=== PATIENT | female | born 1955 | race Caucasian/White ===

== ENCOUNTER 2018-03-28 14:30 | Outpatient (CLI) | payer MEDICARE, SELFPAY | END 2018-03-28 14:31 | PROVIDERS: PCP Nurse Practitioner Family; Visit Provider Nurse Practitioner Gerontology | DX: R31.9 Hematuria, unspecified (principal); N39.41 Urge incontinence | CPT/HCPCS: 99213 ==

== ENCOUNTER → 2018-05-16 08:45 | Outpatient (BNVA) | payer MEDICARE, SELFPAY | PROVIDERS: Visit Provider Psychiatry & Neurology Neurology | DX: G95.0 Syringomyelia and syringobulbia (principal); G93.0 Cerebral cysts; G70.00 Myasthenia gravis without (acute) exacerbation; G57.93 Unspecified mononeuropathy of bilateral lower limbs; R53.1 Weakness; I12.9 Hypertensive chronic kidney disease with stage 1 through stage 4 chronic kidney disease, or unspecified chronic kidney disease; N18.9 Chronic kidney disease, unspecified; J44.9 Chronic obstructive pulmonary disease, unspecified; Z87.891 Personal history of nicotine dependence | CPT/HCPCS: 99205; 99215 ==

== ENCOUNTER → 2018-05-25 11:13 | Outpatient (BNVA) | payer MEDICARE, SELFPAY | PROVIDERS: Visit Provider Nurse Practitioner Gerontology | DX: R31.21 Asymptomatic microscopic hematuria (principal); Z48.816 Encounter for surgical aftercare following surgery on the genitourinary system; I12.9 Hypertensive chronic kidney disease with stage 1 through stage 4 chronic kidney disease, or unspecified chronic kidney disease; N18.9 Chronic kidney disease, unspecified; J44.9 Chronic obstructive pulmonary disease, unspecified; Z87.891 Personal history of nicotine dependence | CPT/HCPCS: 99213 ==

== ENCOUNTER 2018-07-10 15:06 | Outpatient (REF) | payer MEDICARE, SELFPAY ==
--- NOTE | 2018-07-10 14:00 | PAPFT_PTH ---
PATIENT: Missy Kim LOC: [facility] U#:[id number] AGE/SX: 63/F ROOM: RE07/10/[address]: Bee Kowalski : 1955 BED: DIS: 07/10/2018 SPEC #: [id number] RECD: 07/10/18 18:22 STATUS: LAURY RESal #: [id number] LIBBY: 07/10/18 14:[address]: Bee Kowalski DEPT: [facility] Cytology RECD BY: Amanda Nix Tissues: 1 - CX/ENDOCX FOR PAP SMEARS Procedures: PAP THIN PREP/UVM Screening HPV DNA PROBE Comments: [id number]
[2018-07-10 18:42] LABS: Anion Gap 9.5 mmol/L (3-11); BUN 25 mg/dL (7-18); CO2 28.5 mmol/L (21.0-32.0); Calcium 9.7 mg/dL (8.5-10.1); Chloride 100 mmol/L (98-107); Estimated GFR 50.17 (mL/min/1.73m2); Glucose 91 mg/dL (70-100); Potassium 4.2 mmol/L (3.5-5.1); Sodium 138 mmol/L (136-145)
== END 2018-07-10 15:26 ==
LOC: NCHCN 15:06
PROVIDERS: PCP Nurse Practitioner Family; Visit Provider Nurse Practitioner Family
DX: Z12.4 Encounter for screening for malignant neoplasm of cervix (principal); Z11.51 Encounter for screening for human papillomavirus (HPV); N18.9 Chronic kidney disease, unspecified; E87.6 Hypokalemia
CPT/HCPCS: 80048; 88142; 87624

== ENCOUNTER → 2018-08-03 13:26 | Outpatient (BNVA) | payer MEDICARE, SELFPAY | PROVIDERS: PCP Nurse Practitioner Family; Visit Provider Psychiatry & Neurology Neurology | DX: G95.0 Syringomyelia and syringobulbia (principal); G70.00 Myasthenia gravis without (acute) exacerbation; G57.93 Unspecified mononeuropathy of bilateral lower limbs; R29.898 Other symptoms and signs involving the musculoskeletal system; I12.9 Hypertensive chronic kidney disease with stage 1 through stage 4 chronic kidney disease, or unspecified chronic kidney disease; N18.9 Chronic kidney disease, unspecified; J44.9 Chronic obstructive pulmonary disease, unspecified; Z87.891 Personal history of nicotine dependence | CPT/HCPCS: 95886; 95909; 99214 ==

== ENCOUNTER → 2018-09-27 12:48 | Outpatient (BNVA) | payer MEDICARE, SELFPAY | PROVIDERS: PCP Nurse Practitioner Family; Visit Provider Psychiatry & Neurology Neurology | DX: G95.0 Syringomyelia and syringobulbia (principal); G93.0 Cerebral cysts; G70.00 Myasthenia gravis without (acute) exacerbation; G57.93 Unspecified mononeuropathy of bilateral lower limbs; R53.1 Weakness; G89.29 Other chronic pain | CPT/HCPCS: 99214 ==

== ENCOUNTER 2018-11-13 00:15 | Outpatient (CLI) | payer MEDICARE, SELFPAY ==
--- NOTE | 2018-11-13 10:50 | DI.MAMMO_ITS ---
SYMPTOMS/DIAGNOSIS: SCREENING, [facility], Z00.00 MAMMOGRAM: Mammograms were interpreted according to the usual protocol including computer analysis with CAD system, tomosynthesis and C view imaging. The breast tissue is of moderate radiodensity. There is no evidence of a mass. There are no suspicious calcifications. No prior mammograms were extant at the time of this interpretation. SUMMARY: No evidence of malignancy, Category I, yearly screening mammography is recommended. Breast density Category B. SA ASSESSMENT OF FINDINGS: Negative. Category 1. Patient will receive a letter notifying them of these results. BI-RADS category B. There are scattered areas of fibroglandular density.
== END 2018-11-13 00:35 ==
PROVIDERS: PCP Nurse Practitioner Family; Visit Provider Nurse Practitioner Family
DX: Z12.31 Encounter for screening mammogram for malignant neoplasm of breast (principal)
CPT/HCPCS: 77063; 77067

== ENCOUNTER → 2019-01-30 12:30 | Outpatient (BNVA) | payer MEDICARE, SELFPAY | PROVIDERS: PCP Nurse Practitioner Family; Visit Provider Psychiatry & Neurology Neurology | DX: G95.0 Syringomyelia and syringobulbia (principal); G93.0 Cerebral cysts; G57.93 Unspecified mononeuropathy of bilateral lower limbs; R29.898 Other symptoms and signs involving the musculoskeletal system; G89.29 Other chronic pain; I10 Essential (primary) hypertension; J44.9 Chronic obstructive pulmonary disease, unspecified | CPT/HCPCS: 99214 ==

== ENCOUNTER 2019-02-06 15:34 | Outpatient (REF) | payer MEDICARE, SELFPAY ==
[2019-02-06 18:09] LABS: Anion Gap 10.9 mmol/L (3-11); BUN 32 mg/dL (7-18); CO2 27.1 mmol/L (21.0-32.0); Calcium 9.5 mg/dL (8.5-10.1); Chloride 103 mmol/L (98-107); Estimated GFR 50.17 (mL/min/1.73m2); Glucose 96 mg/dL (70-100); Potassium 4.1 mmol/L (3.5-5.1); Sodium 141 mmol/L (136-145)
== END 2019-02-06 15:54 ==
LOC: NCHCN 15:34
PROVIDERS: PCP Nurse Practitioner Family; Visit Provider Nurse Practitioner Family
DX: N18.9 Chronic kidney disease, unspecified (principal)
CPT/HCPCS: 80048

== ENCOUNTER → 2019-03-28 13:28 | Outpatient (BNVA) | payer MEDICARE, SELFPAY | PROVIDERS: Visit Provider Psychiatry & Neurology Neurology | DX: G95.0 Syringomyelia and syringobulbia (principal); G70.00 Myasthenia gravis without (acute) exacerbation; G93.0 Cerebral cysts; G57.93 Unspecified mononeuropathy of bilateral lower limbs; R25.2 Cramp and spasm; I12.9 Hypertensive chronic kidney disease with stage 1 through stage 4 chronic kidney disease, or unspecified chronic kidney disease; N18.9 Chronic kidney disease, unspecified; J44.9 Chronic obstructive pulmonary disease, unspecified | CPT/HCPCS: 99214 ==

== ENCOUNTER → 2019-05-29 10:23 | Outpatient (BNVA) | payer MEDICARE, SELFPAY | PROVIDERS: Referring Provider Nurse Practitioner Family; Visit Provider Nurse Practitioner Gerontology | DX: R31.21 Asymptomatic microscopic hematuria (principal); R31.9 Hematuria, unspecified | CPT/HCPCS: 81003; 99213 ==

== ENCOUNTER → 2019-05-30 13:26 | Outpatient (BNVA) | payer MEDICARE, SELFPAY | PROVIDERS: Visit Provider Psychiatry & Neurology Neurology | DX: G95.0 Syringomyelia and syringobulbia (principal); G70.00 Myasthenia gravis without (acute) exacerbation; G93.0 Cerebral cysts; G57.93 Unspecified mononeuropathy of bilateral lower limbs; R29.898 Other symptoms and signs involving the musculoskeletal system; R25.2 Cramp and spasm; J44.9 Chronic obstructive pulmonary disease, unspecified; I10 Essential (primary) hypertension | CPT/HCPCS: 99214 ==

== ENCOUNTER 2019-08-09 15:20 | Outpatient (REF) | payer MEDICARE, SELFPAY ==
[2019-08-09 19:03] LABS: Anion Gap 8.7 mmol/L (3-11); CO2 29.3 mmol/L (21.0-32.0); CREATININE 1.44 mg/dL (0.55-1.02); Calcium 9.5 mg/dL (8.5-10.1); Chloride 102 mmol/L (98-107); Estimated GFR 36.65 (mL/min/1.73m2); Glucose 102 mg/dL (74-106); Potassium 4.2 mmol/L (3.5-5.1); Sodium 140 mmol/L (136-145)
[2019-08-09 19:17] LABS: BUN 29 mg/dL (7-18)
== END 2019-08-09 15:40 ==
LOC: NCHCN 15:20
PROVIDERS: PCP Nurse Practitioner Family; Visit Provider Nurse Practitioner Family
DX: N18.9 Chronic kidney disease, unspecified (principal)
CPT/HCPCS: 80048

== ENCOUNTER → 2019-09-06 10:46 | Outpatient (BNVA) | payer MEDICARE, SELFPAY | PROVIDERS: PCP Nurse Practitioner Family; Visit Provider Psychiatry & Neurology Neurology | DX: G70.00 Myasthenia gravis without (acute) exacerbation (principal); G93.0 Cerebral cysts; G57.93 Unspecified mononeuropathy of bilateral lower limbs; R25.2 Cramp and spasm | CPT/HCPCS: 99214 ==

== ENCOUNTER 2019-10-15 11:51 | Outpatient (REF) | payer MEDICARE, SELFPAY ==
[2019-10-15 13:52] LABS: PROTEIN 14.8 mg/dL
[2019-10-15 13:54] LABS: COMMENT (LAB VIEW ONLY) 61.91 mg/dL
[2019-10-15 14:02] LABS: COMMENT (LAB VIEW ONLY) 62.14 mg/dL; Prot/Crea Ur Ratio 0.23
[2019-10-15 14:16] LABS: Anion Gap 6.4 mmol/L (3-11); BUN 32 mg/dL (7-18); CO2 30.6 mmol/L (21.0-32.0); Calcium 9.2 mg/dL (8.5-10.1); Chloride 103 mmol/L (98-107); Estimated GFR 37.86 (mL/min/1.73m2); Glucose 73 mg/dL (74-106); Potassium 4.2 mmol/L (3.5-5.1); Sodium 140 mmol/L (136-145)
== END 2019-10-15 12:11 ==
LOC: NCHCN 11:51
PROVIDERS: PCP Nurse Practitioner Family; Visit Provider Nurse Practitioner Family
DX: I10 Essential (primary) hypertension (principal); N18.9 Chronic kidney disease, unspecified
CPT/HCPCS: 80048; 82043; 82565; 82570; 84156

== ENCOUNTER → 2019-12-06 08:23 | Outpatient (BNVA) | payer MEDICARE, SELFPAY | PROVIDERS: PCP Nurse Practitioner Family; Referring Provider Nurse Practitioner Family; Visit Provider Psychiatry & Neurology Neurology | DX: G95.0 Syringomyelia and syringobulbia (principal); G93.0 Cerebral cysts; G70.00 Myasthenia gravis without (acute) exacerbation; G57.93 Unspecified mononeuropathy of bilateral lower limbs; R29.898 Other symptoms and signs involving the musculoskeletal system; R25.2 Cramp and spasm | CPT/HCPCS: 99213; 99442 ==

== ENCOUNTER 2020-02-06 17:05 | Outpatient (REF) | payer MEDICARE, SELFPAY ==
[2020-02-06 16:44] LABS: Bilirubin Negative (Negative); Blood Small (Negative); Clarity Clear (Clear); Glucose Negative (Negative); Ketones Negative (Negative); Leukocyte Esterase Negative (Negative); Nitrite Negative (Negative); Urobilinogen 0.2 EU/dL (Up TO 0.2); pH 6.5 (5-8)
[2020-02-06 17:14] LABS: RBC 0-2 HPF (0-2); WBC 0-2 HPF (0-5)
[2020-02-06 17:15] LABS: Bacteria Negative HPF (Negative); C & S Indicated? No; Casts Negative LPF (Negative); Crystals Negative HPF (Negative); Epithelial Cells Rare HPF (Negative); Mucus Negative (Negative)
== END 2020-02-06 17:25 ==
LOC: NCHCN 17:05
PROVIDERS: PCP Nurse Practitioner Family; Visit Provider Nurse Practitioner Family
DX: R30.0 Dysuria (principal)
CPT/HCPCS: 81003; 81015; 87086

== ENCOUNTER → 2020-03-03 14:24 | Outpatient (BNVA) | payer MEDICARE, SELFPAY | PROVIDERS: PCP Nurse Practitioner Family; Referring Provider Nurse Practitioner Family; Visit Provider Psychiatry & Neurology Neurology | DX: G95.0 Syringomyelia and syringobulbia (principal); G93.0 Cerebral cysts; G70.00 Myasthenia gravis without (acute) exacerbation; G57.93 Unspecified mononeuropathy of bilateral lower limbs; R29.898 Other symptoms and signs involving the musculoskeletal system; R25.2 Cramp and spasm; J44.9 Chronic obstructive pulmonary disease, unspecified; I10 Essential (primary) hypertension | CPT/HCPCS: 99214 ==

== ENCOUNTER 2020-03-19 03:44 | Outpatient (CLI) | payer MEDICARE, SELFPAY ==
[2020-03-19 14:00] LABS: HCT 39.4 % (36.0-46.0); HGB 12.6 g/dL (11.2-15.7); MCH 29.2 pg (27.0-33.0); MCV 91.4 fL (80-95); MPV 9.3 fL (8.0-11.0); Platelet Count 264 10^3/uL (130-400); RBC 4.31 10^6/uL (3.93-5.22); RDW 13.4 % (11.7-14.6); RDW-SD 45.5 fL
[2020-03-19 14:22] LABS: Hemoglobin A1C 5.7 % (3.8-5.6)
[2020-03-19 15:09] LABS: ALT 33 U/L (14-59); AST 17 U/L (15-37); Albumin 3.6 g/dL (3.4-5.0); Alkaline Phosphatase 96 U/L (46-116); Anion Gap 6.4 mmol/L (3-11); BUN 27 mg/dL (7-18); Bilirubin, Total 0.4 mg/dL (0.2-1.0); CO2 28.6 mmol/L (21.0-32.0); CREATININE 1.23 mg/dL (0.55-1.02); Calcium 9.4 mg/dL (8.5-10.1); Chloride 106 mmol/L (98-107); Estimated GFR 43.96 (mL/min/1.73m2); Glucose 143 mg/dL (74-106); Potassium 4.1 mmol/L (3.5-5.1); Sodium 141 mmol/L (136-145); TSH (W/Ref FT4) 1.41 uIU/mL (0.36-3.74); Total Protein 6.8 g/dL (6.4-8.2); Vitamin B12 518 pg/mL (193-986)
[2020-03-20 13:10] LABS: Albumin 59.3 % (55.8-66.1); Total Protein 6.6 g/dL (6.3-8.2)
== END 2020-03-19 04:04 ==
PROVIDERS: PCP Nurse Practitioner Family; Visit Provider Psychiatry & Neurology Neurology
DX: G62.9 Polyneuropathy, unspecified (principal); G70.00 Myasthenia gravis without (acute) exacerbation; R73.9 Hyperglycemia, unspecified
CPT/HCPCS: 36415; 80053; 85027; 82607; 83036; 84165; 84443

== ENCOUNTER → 2020-04-14 14:26 | Outpatient (BNVA) | payer MEDICARE, SELFPAY | PROVIDERS: PCP Nurse Practitioner Family; Referring Provider Nurse Practitioner Family; Visit Provider Psychiatry & Neurology Neurology | DX: G47.00 Insomnia, unspecified (principal); G70.00 Myasthenia gravis without (acute) exacerbation; G95.0 Syringomyelia and syringobulbia; G93.0 Cerebral cysts; G57.93 Unspecified mononeuropathy of bilateral lower limbs; R29.898 Other symptoms and signs involving the musculoskeletal system; R25.2 Cramp and spasm; J44.9 Chronic obstructive pulmonary disease, unspecified; I12.9 Hypertensive chronic kidney disease with stage 1 through stage 4 chronic kidney disease, or unspecified chronic kidney disease; N18.9 Chronic kidney disease, unspecified; Z87.891 Personal history of nicotine dependence | CPT/HCPCS: 99214 ==

== ENCOUNTER 2020-05-20 02:43 | Inpatient (IN) | payer MEDICARE, SELFPAY ==
[2020-05-20] VITALS (8 sets, daily range): BP systolic 108–136; BP diastolic 68–91; PULSE 64–89; RESP 15–20; TEMP 36.3–36.8; O2SAT 93–97
--- NOTE | 2020-05-20 02:43 | ED.GENADUL_ITS ---
Discharge Plan Disposition Patient Disposition: [facility] INPATIENT Condition: Stable Discharge Details Clinical Impression: Weakness Primary Care Provider: Prashanth Thayer ED Provider: Elvin Salinas Home Meds and New Rx's Prescriptions: No Action gabapentin 300 mg capsule 300 mg PO DIRECTED Qty: 450 RF: 3 pyridostigmine bromide [Mestinon Timespan] 180 mg tablet extended release 180 mg PO DAILY Qty: 90 RF: 3 lidocaine-prilocaine 2.5-2.5 % cream 1 applic TP Q4H PRN Qty: 120 RF: 5 ZTlido 1.8 % adhesive patch,medicated 2 patch TP DAILY Qty: 180 RF: 3 tizanidine 6 mg capsule 6 mg PO BID Qty: 180 RF: 3 potassium chloride [Klor-Con M20] 20 MEQ tablet,ER particles/crystals 20 meq PO DAILY RF: 0 lisinopril-hydrochlorothiazide [Zestoretic] 1 EACH tablet 1 tab-cap PO DAILY RF: 0 zolpidem [Ambien] 10 MG tablet 10 mg PO HS RF: 0 Medical Decision Making <Jose Roberto Brooks MD - Last Filed: 05/20/20 03:11> Patient with no real fall tonight and no injury. However, has had a decline and inability to care for self and ambulate despite having a walker. Unable to get herself up tonight. Feels unsafe at home at this point. No need for imaging or laboratory studies. Will check a urine to be sure UTI not exacerbating her weakness. We will then hold for care management consult in the morning. <Elvin Salinas MD - Last Filed: 05/20/20 10:41> Received signout from Dr. Brooks. Please see his note regarding details initial presentation, plan of care. Patient had a unremarkable urinalysis. I did refer her for screening laboratories which are reassuring. She has a number of reasons for chronic weakness which has worsened as per Dr. Brooks's note, but no acute injury. She was able to ambulate using a wheeled walker with physical therapy but still at high risk for falls and not a good candidate for independent living. She will be admitted to a swing bed pending placement for rehabilitation. The patient states to me that she wishes to be DNR/DNI, has consider this in the past but has yet to submit her form. HPI <Jose Roberto Brooks MD - Last Filed: 05/20/20 03:11> General Mode of arrival: EMS . Date/Time Provider Initiated Documentation: 05/20/20 02:44 . Limitations to Documentation: no limitations . Information obtained by: patient, RN notes reviewed and old records reviewed . HPI Narrative: Patient presents to ED by ambulance after sliding out of bed onto the floor. She has a known cervical/thoracic syringomyelia which is slowly causing paralysis in her lower extremities. Over the last week she has had increased difficulty getting around. She is supposed to be having surgery next month. She lives at [facility] which is assisted living but has no help or services. She does have a walker which up until a week ago she been doing fairly well with. She has no fever, cough, chest pain, shortness of breath, abdominal pain, difficulty urinating, vomiting or diarrhea. She is followed by Dr. So from neurology. She is followed by neurosurgery at [facility]. Once she slid out of bed tonight she was stuck and could not get up. She is becoming less able to ambulate. EMS was contacted and she presents here not knowing what else to do at this point. Related Data Home Medications Medication Instructions Recorded Confirmed lisinopril-hydrochlorothiazide 1 tab-cap PO DAILY tab-cap 03/02/18 04/14/20 [Zestoretic 20-25 Mg Tablet] potassium chloride [K-Dur] 20 meq PO DAILY tab-cap 03/02/18 04/14/20 zolpidem [Ambien] 10 mg PO HS 03/02/18 04/14/20 tizanidine 6 mg capsule 6 mg PO BID #180 cap 12/06/19 04/14/20 gabapentin 300 mg capsule 300 mg PO DIRECTED #450 cap 04/14/20 04/14/20 lidocaine 1.8 % topical patch 2 patch TP DAILY #180 each 04/14/20 04/14/20 lidocaine-prilocaine 2.5 %-2.5 % 1 applic TP Q4H PRN #120 gm 04/14/20 04/14/20 topical cream pyridostigmine bromide 180 mg 180 mg PO DAILY #90 tab-cap 04/14/20 04/14/20 tablet,extended release Previous Rx's Medication Instructions Recorded tizanidine 6 mg capsule 6 mg PO BID #180 cap 12/06/19 gabapentin 300 mg capsule 300 mg PO DIRECTED #450 cap 04/14/20 lidocaine 1.8 % topical patch 2 patch TP DAILY #180 each 04/14/20 lidocaine-prilocaine 2.5 %-2.5 % 1 applic TP Q4H PRN #120 gm 04/14/20 topical cream pyridostigmine bromide 180 mg 180 mg PO DAILY #90 tab-cap 04/14/20 tablet,extended release Allergies Allergy/AdvReac Type Severity Reaction Status Date / Time codeine Allergy Severe Verified 05/20/20 02:47 iodine Allergy Severe Verified 05/20/20 02:47 Penicillins Allergy Severe Anaphylaxsi Verified 05/20/20 02:47 s Sulfa (Sulfonamide Allergy Severe Swelling/Ed Verified 05/20/20 02:47 Antibiotics) kendal trazodone AdvReac Intermediate PER PT Verified 05/20/20 02:47 MAKES HER HEART RACE. Review of Systems <Jose Roberto Brooks MD - Last Filed: 05/20/20 03:11> Narrative: As documented in HPI otherwise negative as below. Const: no fever, chills, weakness Resp: no cough, SOB, pleuritic pain CV: no CP, diaphoresis, edema, syncope GI: no abdominal pain, nausea, vomiting, diarrhea PFSH <Jose Roberto Brooks MD - Last Filed: 05/20/20 03:11> Medical History (Updated 05/20/20 @ 10:28 by Elvin Salinas MD) Alcohol abuse history of Anxiety Chronic kidney disease COPD (chronic obstructive pulmonary disease) Depression GERD (gastroesophageal reflux disease) Hyperlipidemia Hypertension Insomnia previous misuse of Ambien Intracranial arachnoid cyst Migraine headache without aura Myasthenia gravis Syrinx of spinal cord Surgical History H/O craniotomy ; L cerebellar arachnoid cyst drain with shunt placement H/O thymectomy S/P appendectomy S/P cystourethroscopy with dilation of urethral stricture S/P tonsillectomy Family History Mother Diabetes Father Neuropathy Back problem Brother Myasthenia gravis Social History Smoking/Tobacco Use Status: Former Tobacco Use Alcohol Intake: former Drug use: Never Household members: none Number of Children: 0 Pets and animals: No Seatbelt use: always Additional Social history: She does not drive. Exam <Jose Roberto Brooks MD - Last Filed: 05/20/20 03:11> Narrative Exam Narrative: Vital signs: Afebrile with normal vitals and normal room air pulse ox. Const: Thin frail appearing female in NAD. HEENT: NC/AT. Neck: Supple. Trachea midline. No midline tenderness. Lungs: Normal respiratory effort. Cor: Good distal pulses. GI: Soft. NT/ND. No guarding or rebound. Neuro: A+O x 3. Normal speech, mentation. Cranial nerves II - XII grossly intact. Proximal bilateral lower extremity weakness. Fairly decent distal strength. Normal upper extremity strength. Gross sensation intact. Ext: No C/C/E. No deformity or tenderness. Good passive range of motion of hips. Skin: Warm and dry multiple bruises and abrasions in various stages of healing. Sign Out <Jose Roberto Brooks MD - Last Filed: 05/20/20 03:11> Sign Out Data: Sign Out Comment: pending care management Last updated by Jose Roberto Brooks MD at 05/20/20 07:45
--- NOTE | 2020-05-20 03:15 | NUR.NOTE ---
Nursing Note: Patient up to bedside commode with limited assistance. Unable to stand for long periods of time. Urine sample obtained and sent to lab. Assisted patient with getting legs up into bed. Lights turned off and door shut so patient able to sleep.
[2020-05-20 03:46] LABS: Bilirubin Negative (Negative); Blood Negative (Negative); Clarity Clear (Clear); Glucose Negative (Negative); Ketones Negative (Negative); Leukocyte Esterase Negative (Negative); Nitrite Negative (Negative); Urobilinogen 0.2 EU/dL (Up TO 0.2)
--- NOTE | 2020-05-20 05:03 | NUR.NOTE ---
Nursing Note: Patient sleeping on stretcher, even respirations noted. Allowed to sleep.
[2020-05-20 08:30] LABS: Abs Immature Grans 0.01 10^3/uL (0.0-0.06); Absolute Basophil Count 0.03 10^3/uL (0.0-0.2); Absolute Eosinophil Count 0.11 10^3/uL (0.0-0.7); Absolute Lymphocyte Count 1.03 10^3/uL (1.2-3.4); Absolute Neutrophil Count 3.46 10^3/uL (1.2-6.7); Basophils % 0.6; Eosinophils % 2.1; HCT 40.9 % (36.0-46.0); HGB 12.9 g/dL (11.2-15.7); Immature Grans % 0.2; Lymphocytes % 19.3; MCH 28.2 pg (27.0-33.0); MCHC 31.5 % (32.0-36.0); MCV 89.3 fL (80-95); MPV 9.8 fL (8.0-11.0); Monocytes % 13.1; Neutrophils % 64.7; Nucleated RBC 0 %; Platelet Count 240 10^3/uL (130-400); RBC 4.58 10^6/uL (3.93-5.22); RDW 12.6 % (11.7-14.6); RDW-SD 41.2 fL; WBC 5.34 10^3/uL (4.4-10.8)
[2020-05-20 08:57] LABS: ALT 18 U/L (14-59); AST 15 U/L (15-37); Albumin 3.3 g/dL (3.4-5.0); Alkaline Phosphatase 132 U/L (46-116); Anion Gap 7.7 mmol/L (3-11); BUN 21 mg/dL (7-18); Bilirubin, Total 0.5 mg/dL (0.2-1.0); CO2 28.3 mmol/L (21.0-32.0); CREATININE 0.97 mg/dL (0.55-1.02); Calcium 9.3 mg/dL (8.5-10.1); Chloride 104 mmol/L (98-107); Estimated GFR 57.64 (mL/min/1.73m2); Glucose 91 mg/dL (74-106); Potassium 3.4 mmol/L (3.5-5.1); Sodium 140 mmol/L (136-145); Total Protein 6.9 g/dL (6.4-8.2)
[2020-05-20] MEDS: Gabapentin 300 MG CAP PO ×2 (09:04→14:40)
--- NOTE | 2020-05-20 09:30 | PT.INIE ---
Date of service: 05/20/20 Time of Service: 09:30 PT Notes Visit Reasons: [facility] Emergency Department Initial Evaluation Date: 05/20/2020 Referring Doctor: Elvin Salinas MD PT Orders: PT CONSULT: Safety consult for DC Precautions: Fall. Standard. Activity as tolerated. Patient Profile/Admitting Diagnosis: Missy is a 65-year-old female who presents to the ED today 05/20/2020 due to a decline and inability to care for self and to safely ambulate. Her ED notes, she slid out of bed and onto the floor prior to today's admission. Missy has been followed by Dr. So here in [facility] and by neurosurgery at [facility] for known cervical/thoracic syringomyelia, intracranial arachnoid cyst with myelopathy, myasthenia gravis, neuropathic pain of bilateral legs, left arm weakness, and spasticity. PMHX: Medical History Alcohol abuse (Resolved) history of Anxiety (Chronic) Chronic kidney disease (Chronic) COPD (chronic obstructive pulmonary disease) (Chronic) Depression (Chronic) GERD (gastroesophageal reflux disease) (Chronic) Hyperlipidemia (Chronic) Hypertension (Chronic) Insomnia (Chronic) previous misuse of Ambien Intracranial arachnoid cyst (Chronic) Migraine headache without aura (Chronic) Myasthenia gravis (Chronic) Syrinx of spinal cord (Chronic) Surgical History H/O craniotomy (Acute) ; L cerebellar arachnoid cyst drain with shunt placement H/O thymectomy (Acute) S/P appendectomy (Acute) S/P cystourethroscopy with dilation of urethral stricture (Acute) S/P tonsillectomy (Acute) Social History/Home Situation: Lives alone on the 2nd floor of the [facility] with no community supports. Modified independent with 4[employer] however she can not count how many times she has already fallen this past year. She has a friend who she relies on for grocery shopping. She states that the 4WW moves so quick she no longer feels safe with it. She needs to walk about 250 feet from her aprtment to the elevator and walk about 50 feet from elevator to get to the basement where the laundry area is. This she states has become a challenge for her to do. She gets meals on wheels. Equipment Owned/DME: [employer] Subjective: She indicates that moving about has become increasingly challenging for her. She reports that she has a pending surgery and an appointment sometime in May for a CT scan to see the progression of her syringomyelia. She expresses that she cannot count how many fall she has had in the past 12 months. She says that her vision also has not been good. This, on top of her neuropathy in B leags as well as increasing weakness, have limited her ability to move about. She elaborates that she has not had any PT services as it has been a challenge getting appointments for it. Objective: General Observation: Supine in ED bed in room 7. Contusion seen to bilateral knees and B UEs. Mental Status: Alert and oriented x4 Pain: 6/10 in back and B legs and feet ROM: Right Upper Extremity: Shoulder Flexion WFL. Shoulder abduction WFL. Elbow flexion WFL. Wrist flexion WFL. Opening and closing of hand WFL. Left Upper Extremity: Shoulder Flexion allows about 100 degrees. Shoulder abduction allows about 90 degrees. Elbow flexion WFL. Wrist flexion WFL. Opening and closing of hand WFL. Right Lower Extremity: Hip flexion allows about 10 degrees beyond 90 while seated at edge of bed. Hip abduction WFL. Knee flexion WFL. Ankle dorsiflexion 10 degrees beyond neutral. Ankle plantarflexion WFL. Left Lower Extremity: Hip flexion allows about 10 degrees beyond 90 while seated at edge of bed. Hip abduction WFL. Knee flexion WFL. Ankle dorsiflexion 10 degrees beyond neutral. Ankle plantarflexion WFL. Strength: Right Upper Extremity: Shoulder flexors 4-/5. Shoulder abductors 4-/5. Elbow flexors 4-/5. Elbow extensors 4-/5. Detasseler strong. Left Upper Extremity: Shoulder flexors 3-/5. Shoulder abductors 3-/5. Elbow flexors 4/5. Elbow extensors 4/5. Detasseler strong. Right Lower Extremity: Hip flexors 3-/5. Hip abductors 3-/5. Knee flexors 4-/5. Knee extensors 4-/5. Ankle dorsiflexors 4-/5. Ankle plantarflexors 4-/5. Left Lower Extremity: Hip flexors 3-/5. Hip abductors 3-/5. Knee flexors 4-/5. Knee extensors 4-/5. Ankle dorsiflexors 4-/5. Ankle plantarflexors 4-/5. Sensation: States that she has some mixed sensation she feels in B soles and feet. The soles seem to have not a lot of feelings and the dorsum on B sides seems to hurting. Bed Mobility/Transfers: Rolling contact-guard assist Supine to sit contact-guard assist Sit to supine contact-guard assist Sit to stand contact-guard assist Stand to sit contact-guard assist Bed to chair contact-guard assist Chair to bed contact-guard assist Gait: 75 feet with minimal assist using front-wheeled walker. No full extension of B knees. Trunk anteroflexed. Gait unsteady. Decreased hip and knee extension. Decreased step height and length. Balance: Static Sitting: Normal Dynamic Sitting: Normal Static Standing: Fair Dynamic Standing: Fair Special Tests: Mobility Limitations Standardized Measure [facility] 6 clicks Basic Mobility Inpatient Short Form: Raw Score: 17 CMS Score: 50.57% deficit Informed Consent/Education: Patient instructed in purpose of PT consult and plan of care. Assessment: With possible progression of syringomyelia, patient may be at a significant risk for failure to thrive at home alone and for potential injury with continued falls. Missy demonstrates increasing decline requiring downgrading of use of assistive device from 4 wheeled walker to front wheeled walker for all mobility ADL performance, progressive weakness, increased fall risk due to admitting diagnoses. Missy is a 65-year-old female who presents to the ED today 05/20/2020 due to a decline and inability to care for self and to safely ambulate. Her ED notes, she slid out of bed and onto the floor prior to today's admission. Missy has been followed by Dr. So here in [facility] and by neurosurgery at [facility] for known cervical/thoracic syringomyelia, intracranial arachnoid cyst with myelopathy, myasthenia gravis, neuropathic pain of bilateral legs, left arm weakness, and spasticity. Patient presents with clinical signs and symptoms consistent with current/admitting diagnoses that have resulted to mobility limitations, gait instability, generalized weakness, and impairment of motor control as demonstrated by the following impairment level findings: 1. Decreased strength to B UE/LE major muscle groups 2. Impaired standing balance 3. Impaired activity tolerance 4. Limitation of joint range of motion in L UE 5. Vision impairment Impairments are contributing to the following functional limitations: 1. Increased dependence with transfers 2. Inability to safely ambulate without assistive device and physical assistance 3. Increase completion time for mobility ADL performance 4. Increased fall risk 5. Inability to negotiate steps alone safely Patient is assessed as a [id number] moderate complexity based on the following: History: 65-year-old female with impairment level findings, functional limitations, and past medical history as indicated above Examination: Demonstrable impairment in strength, balance, and mobility level with underlying impairments and functional limitations as documented above Presentation:Evolving Decision Makin moderate complexity Goals: N/A. PT consult only. Will need to re-evaluate on admission/transfer to the medical surgical unit once another referral is received. Plan of Care/Treatment Plan: Re-evaluation once patient is transferred to the medical surgical unit and another referral is received. DISCHARGE RECOMMENDATIONS: Patient will benefit from the use of a front wheel walker for safe mobility ADL performance. Requires skilled PT services for progressive strengthening and balance retraining. Will benfit from long-term facility placement. TREATMENT CODE/TIME: 05009 x 34 minutes beginning at 9:30 AM. Thank you for the opportunity to participate in the care of this patient. Ching Viveros PT, DPT, CLT [facility] [place], [place]
--- NOTE | 2020-05-20 10:27 | NUR.NOTE ---
Nursing Note: 10:00 am, Physical Therapy at beside to ambulate PT with walker.
--- NOTE | 2020-05-20 13:07 | HPE_ITS ---
Date of service: 05/20/20 Time of Service: 13:07 Assessment and Plan Assessment and plan (1) Weakness: Status: Acute Assessment and plan: symptoms worsened over the past week and include saddle anesthesia, bowel incontinence all concerning for cauda equina, discussed with neurosurgery at [facility] who recommends emergent transfer for evaluation. History of Present Illness History of Present Illness Chief Complaint: generalized weakness Narrative: Patient presents to ED by ambulance after sliding out of bed onto the floor. She has a known cervical/thoracic syringomyelia which is slowly causing paralysis in her lower extremities. Over the last week she has had increased d ifficulty getting around, falling more often. She reports increased perineum numbness, bowel incontinence. She is supposed to be having surgery next month at [facility]. She lives at [facility] which is assisted living but has no help or services. She does have a walker which up until a week ago she been doing fairly well with. She has no fever, cough, chest pain, shortness of breath, abdominal pain, difficulty urinating, vomiting or diarrhea. She is followed by Dr. So from neurology. She is followed by neurosurgery at [facility]. Once she slid out of bed tonight she was stuck on on the floor and could not get up. She is becoming less able to ambulate. EMS was contacted and she was brought to the ED accordingly. ED consulted case management and plan was made for swing level admission here. Review of Systems Constitutional Constitutional: Denies fever(s), Denies headache(s) and Reports weakness (generalized bilateral lower) Eyes Eyes: Denies blurry vision and Denies change in vision ENT Ears, Nose, Mouth, and Throat: Denies vertigo, Denies dizziness, Denies headache(s) and Reports disequilibrium Cardiovascular Cardiovascular: Denies chest pain, Denies edema and Denies dyspnea Respiratory Respiratory: Denies cough and Denies dyspnea Gastrointestinal Gastrointestinal: Denies abdominal pain, Reports change in bowel habits, Denies nausea, Denies vomiting and Reports other (incontinent of stool ) Musculoskeletal Musculoskeletal: Denies arthralgias and Reports other (multiple falls) Integumentary/Breasts Skin/Breast: Reports other (scattered bruises of various stages of healing) Neurologic Neurologic: Denies vertigo, Denies dizziness, Denies headache(s), Reports disequilibrium and Reports weakness (generalized bilateral lower) Hematologic/Lymphatic Hematologic/Lymphatic: Reports easy bruising [facility] Medical History (Updated 05/20/20 @ 10:28 by Elvin Salinas MD) Alcohol abuse history of Anxiety Chronic kidney disease COPD (chronic obstructive pulmonary disease) Depression GERD (gastroesophageal reflux disease) Hyperlipidemia Hypertension Insomnia previous misuse of Ambien Intracranial arachnoid cyst Migraine headache without aura Myasthenia gravis Syrinx of spinal cord Surgical History H/O craniotomy ; L cerebellar arachnoid cyst drain with shunt placement H/O thymectomy 1980s S/P appendectomy S/P cystourethroscopy with dilation of urethral stricture S/P tonsillectomy Family History Mother Diabetes Father Neuropathy Back problem Brother Myasthenia gravis Social History Smoking/Tobacco Use Status: Former Tobacco Use Alcohol Intake: former Drug use: Never Household members: none Number of Children: 0 Pets and animals: No Seatbelt use: always Additional Social history: She does not drive. Meds Home Medications and Allergies Home Medications Medication Instructions Recorded Confirmed Type lisinopril-hydrochlorothiazide 1 tab-cap PO DAILY tab-cap 03/02/18 05/20/20 History [Zestoretic 20-25 Mg Tablet] potassium chloride [K-Dur] 20 meq PO DAILY tab-cap 03/02/18 05/20/20 History zolpidem [Ambien] 10 mg PO HS 03/02/18 05/20/20 History tizanidine 6 mg capsule 6 mg PO BID #180 cap 12/06/19 05/20/20 Rx gabapentin 300 mg capsule 300 mg PO DIRECTED #450 cap 04/14/20 05/20/20 Rx lidocaine 1.8 % topical patch 2 patch TP DAILY #180 each 04/14/20 05/20/20 Rx lidocaine-prilocaine 2.5 %-2.5 % 1 applic TP Q4H PRN #120 gm 04/14/20 05/20/20 Rx topical cream pyridostigmine bromide 180 mg 180 mg PO DAILY #90 tab-cap 04/14/20 05/20/20 Rx tablet,extended release Allergies Allergy/AdvReac Type Severity Reaction Status Date / Time codeine Allergy Severe Verified 05/20/20 02:47 iodine Allergy Severe Verified 05/20/20 02:47 Penicillins Allergy Severe Anaphylaxsi Verified 05/20/20 02:47 s Sulfa (Sulfonamide Allergy Severe Swelling/Ed Verified 05/20/20 02:47 Antibiotics) kendal trazodone AdvReac Intermediate PER PT Verified 05/20/20 02:47 MAKES HER HEART RACE. Exam Const General: cooperative, healthy appearing, comfortable, no acute distress and frail appearing Nutritional Appearance: thin Orientation: alert, awake and oriented x3 HENMT Head: normal to inspection, normocephalic and atraumatic Mouth: oral mucosae normal Resp Effort & Inspection: normal respiratory effort Auscultation: clear to auscultation bilaterally Cardio Rate: regular rate Rhythm: regular rhythm GI Inspection: normal to inspection Skin General skin exam: other (scattered bruises of multiple stages of healing multiple areas) Neuro General: patient alert, patient awake, patient oriented x3, tone abnormal, focal motor deficits present and unable to assess gait Cranial Nerves: other (rectal exam shows poor tone, stool negative for OB, hard stool in vault) Cognition: normal cognition Speech: speech normal Motor: strength abnormal (3/5 bilateral lower, sensation diminished, poor rectal tone) Sensory Exam: graphesthesia abnormal bilaterally and perineum Extrem General: no pedal edema, abnormal gait and other (drop foot left > right) Results Labs Result diagrams: 05/20/20 08:25 05/20/20 08:25 Labs: Laboratory Results - last 24 hr 05/20/20 05/20/20 05/20/20 03:15 08:25 08:25 WBC 5.34 RBC 4.58 Hgb 12.9 Hct 40.9 MCV 89.3 MCH 28.2 MCHC 31.5 L RDW 12.6 Plt Count 240 MPV 9.8 Immature Gran % 0.2 Neutrophils % 64.7 Lymphocytes % 19.3 Monocytes % 13.1 Eosinophils % 2.1 Basophils % 0.6 Nucleated RBC % 0 Absolute Neutrophils 3.46 Absolute Lymphocytes 1.03 L Absolute Monocytes 0.70 Absolute Eosinophils 0.11 Absolute Basophils 0.03 Sodium 140 Potassium 3.4 L Chloride 104 Carbon Dioxide 28.3 Anion Gap 7.7 BUN 21 H Creatinine 0.97 Estimated GFR/1.73 m2 57.64 Glucose 91 Calcium 9.3 Total Bilirubin 0.5 AST 15 ALT 18 Alkaline Phosphatase 132 H Total Protein 6.9 Albumin 3.3 L Urine Color Yellow Urine Clarity Clear Urine pH 7.0 Ur Specific [place] 1.020 Urine Protein Negative Urine Ketones Negative Urine Blood Negative Urine Nitrite Negative Urine Bilirubin Negative Urine Urobilinogen 0.2 Ur Leukocyte Esterase Negative Urine Glucose Negative Last Vital Signs Temp 36.5 C 05/20/20 11:45 Pulse 75 05/20/20 11:45 Resp 18 05/20/20 11:45 BP 134/82 05/20/20 11:45 Pulse Ox 97 05/20/20 11:45 COVID-19 Screening Have you,or household,traveled outside [place] in last 14 days?: No Had IN PERSON contact w/suspected or confirmed C-19 person: No
[2020-05-20] MEDS: Lidocaine 5% Patch 2 PATCH TP (14:39)
--- NOTE | 2020-05-20 14:51 | W.PM.DS.N ---
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 So. She presented today to the emergency department with increasing falls and inability to care for herself at home. The emergency department contacted case management and plans were made for [facility] rehab while awaiting her procedure at [facility]. On interview she reports that she has been having increased weakness over the past 1-2 weeks bilaterally to the lower extremities causing multiple falls. She also reports increased numbness in her perineum and inner thighs. She reports that she has lost ability to control her bowel. On physical exam she is found to have 3 out of 5 bilateral lower extremity weakness with left foot drop and poor rectal tone. Her case was discussed with Dr. So and Dr. Kirk from [facility] who recommends emergent transfer. She will be transferred by ground EMS to their emergency department for further evaluation and management. Home Meds and New Rx's Prescriptions: Continued gabapentin 300 mg capsule 300 mg PO DIRECTED Qty: 450 RF: 3 pyridostigmine bromide [Mestinon Timespan] 180 mg tablet extended release 180 mg PO DAILY Qty: 90 RF: 3 lidocaine-prilocaine 2.5-2.5 % cream 1 applic TP Q4H PRN Qty: 120 RF: 5 ZTlido 1.8 % adhesive patch,medicated 2 patch TP DAILY Qty: 180 RF: 3 potassium chloride [Klor-Con M20] 20 MEQ tablet,ER particles/crystals 20 meq PO DAILY RF: 0 lisinopril-hydrochlorothiazide [Zestoretic] 1 EACH tablet 1 tab-cap PO DAILY RF: 0 zolpidem [Ambien] 10 MG tablet 10 mg PO HS PRNRF: 0 Discontinued tizanidine 6 mg capsule 6 mg PO BID Qty: 180 RF: 3 Discharge Instructions Instructions: Weakness (DC) Additional Instructions: ground transport to [facility] for neurosurgery evaluation Activity:: bedrest Equipment/Supplies:: No Equipment Needed Diet:: npo Discharge Orders Discharge Orders: Discharge Order (Routine); Ordered 05/20/20 Ordered By: Pavithra Bliss DS: Summary Status at Discharge Functional status at discharge: bed bound Overall status at discharge: patient is not back to baseline Mental Status: mental status grossly normal Speech and Movement: speech and movement normal Mood: congruent mood Affect: normal affect Exam Const General: cooperative, comfortable, no acute distress and frail appearing Nutritional Appearance: thin Orientation: alert, awake and oriented x3 HENMT Head: normal to inspection, normocephalic and atraumatic Mouth: oral mucosae normal Resp Effort & Inspection: normal respiratory effort Auscultation: clear to auscultation bilaterally Cardio Rate: regular rate Rhythm: regular rhythm GI Inspection: normal to inspection Skin General skin exam: other (scattered bruises of multiple stages of healing multiple areas) Neuro General: patient alert, patient awake, patient oriented x3, tone abnormal, focal motor deficits present and unable to assess gait Cranial Nerves: other (rectal exam shows poor tone, stool negative for OB, hard stool in vault) Cognition: normal cognition Speech: speech normal Motor: strength abnormal (3/5 bilateral lower, sensation diminished, poor rectal tone) Sensory Exam: graphesthesia abnormal bilaterally and perineum Extrem General: no pedal edema, abnormal gait and other (drop foot left > right) Psych Mental Status: mental status grossly normal Speech and Movement: speech and movement normal Mood: congruent mood Affect: normal affect DS: Data Vitals/I&O Vitals and I&O: Vital Signs Temperature 36.5 C 05/20/20 11:45 Temperature Source Tympanic 05/20/20 11:45 Pulse 75 05/20/20 11:45 Pulse Rhythm Regular 05/20/20 11:45 Respiratory Rate 18 05/20/20 11:45 Respiratory Effort Non-Labored 05/20/20 11:45 Respiratory Depth Normal 05/20/20 11:45 Respiratory Pattern Normal 05/20/20 11:45 Blood Pressure 134/82 05/20/20 11:45 Blood Pressure Position Supine 05/20/20 02:40 Pulse Oximetry 97 05/20/20 11:45 Oxygen Delivery Method Room Air 05/20/20 11:45 Oxygen Flow Rate 0 05/20/20 11:45 Pain Level 5 05/20/20 11:45 Intake & Output 05/19/20 05/20/20 05/20/20 23:59 11:59 23:59 Intake Total 240 / 240 Output Total 900 / 1500 600 / 1500 Balance -900 / -1260 -360 / -1260 Weight 58.967 kg Intake: Oral 240 / 240 Output: Urine 900 / 1500 600 / 1500 Other: Urine Color Yellow Urine Appearance Clear Clear Urine Odor None Voiding Methods Toilet Data Completed and Pending Labs on day of discharge: Labs from last 24 hours 05/20/20 05/20/20 05/20/20 13:46 11:19 08:25 WBC 5.34 RBC 4.58 Hgb 12.9 Hct 40.9 MCV 89.3 MCH 28.2 MCHC 31.5 L RDW 12.6 Plt Count 240 MPV 9.8 Immature Gran % 0.2 Neutrophils % 64.7 Lymphocytes % 19.3 Monocytes % 13.1 Eosinophils % 2.1 Basophils % 0.6 Nucleated RBC % 0 Absolute Neutrophils 3.46 Absolute Lymphocytes 1.03 L Absolute Monocytes 0.70 Absolute Eosinophils 0.11 Absolute Basophils 0.03 Sodium Potassium Chloride Carbon Dioxide Anion Gap BUN Creatinine Estimated GFR/1.73 m2 Glucose Calcium Magnesium Pending Total Bilirubin AST ALT Alkaline Phosphatase Total Protein Albumin Urine Color Urine Clarity Urine pH Ur Specific [place] Urine Protein Urine Ketones Urine Blood Urine Nitrite Urine Bilirubin Urine Urobilinogen Ur Leukocyte Esterase Urine Glucose COVID-19 PCR Pending Nasopharyn COVID-19 PCR Pending Ref Test Perform Site Pending 05/20/20 05/20/20 08:25 03:15 WBC RBC Hgb Hct MCV MCH MCHC RDW Plt Count MPV Immature Gran % Neutrophils % Lymphocytes % Monocytes % Eosinophils % Basophils % Nucleated RBC % Absolute Neutrophils Absolute Lymphocytes Absolute Monocytes Absolute Eosinophils Absolute Basophils Sodium 140 Potassium 3.4 L Chloride 104 Carbon Dioxide 28.3 Anion Gap 7.7 BUN 21 H Creatinine 0.97 Estimated GFR/1.73 m2 57.64 Glucose 91 Calcium 9.3 Magnesium Total Bilirubin 0.5 AST 15 ALT 18 Alkaline Phosphatase 132 H Total Protein 6.9 Albumin 3.3 L Urine Color Yellow Urine Clarity Clear Urine pH 7.0 Ur Specific [place] 1.020 Urine Protein Negative Urine Ketones Negative Urine Blood Negative Urine Nitrite Negative Urine Bilirubin Negative Urine Urobilinogen 0.2 Ur Leukocyte Esterase Negative Urine Glucose Negative COVID-19 PCR Nasopharyn COVID-19 PCR Ref Test Perform Site [facility] Medical History (Updated 05/20/20 @ 10:28 by Elvin Salinas MD) Alcohol abuse history of Anxiety Chronic kidney disease COPD (chronic obstructive pulmonary disease) Depression GERD (gastroesophageal reflux disease) Hyperlipidemia Hypertension Insomnia previous misuse of Ambien Intracranial arachnoid cyst Migraine headache without aura Myasthenia gravis Syrinx of spinal cord Surgical History H/O craniotomy ; L cerebellar arachnoid cyst drain with shunt placement H/O thymectomy 1980s S/P appendectomy S/P cystourethroscopy with dilation of urethral stricture S/P tonsillectomy Family History Mother Diabetes Father Neuropathy Back problem Brother Myasthenia gravis Social History Smoking/Tobacco Use Status: Former Tobacco Use Alcohol Intake: former Drug use: Never Household members: none Number of Children: 0 Pets and animals: No Seatbelt use: always Additional Social history: She does not drive.
[2020-05-20 23:05] LABS: COVID-19 RT-PCR UVMMC Result Negative (Negative)
== END 2020-05-20 16:00 | DRG 57 ==
LOC: ER 10:41 → MS 11:32
PROVIDERS: Emergency Medicine; Nurse Practitioner Acute Care; Admitting Provider Internal Medicine; Emergency Provider Emergency Medicine; PCP Nurse Practitioner Family; Visit Provider Internal Medicine
DX: G95.0 Syringomyelia and syringobulbia (principal); R53.1 Weakness; W06.XXXA Fall from bed, initial encounter; F41.9 Anxiety disorder, unspecified; N18.9 Chronic kidney disease, unspecified; J44.9 Chronic obstructive pulmonary disease, unspecified; F32.9 Major depressive disorder, single episode, unspecified; K21.9 Gastro-esophageal reflux disease without esophagitis; E78.5 Hyperlipidemia, unspecified; I10 Essential (primary) hypertension; G47.00 Insomnia, unspecified; G43.009 Migraine without aura, not intractable, without status migrainosus; G70.00 Myasthenia gravis without (acute) exacerbation; T14.8XXA Other injury of unspecified body region, initial encounter; R15.9 Full incontinence of feces; R26.2 Difficulty in walking, not elsewhere classified
CPT/HCPCS: 36415; 80053; 97162; 99236; 99285; 99306; 99316; U0003; 81003; 83735; 85025; 99284

== ENCOUNTER 2020-06-10 13:04 | Outpatient (REF) | payer MEDICARE, SELFPAY ==
[2020-06-11 17:50] LABS: COVID-19 RT-PCR Result Not Detected
== END 2020-06-10 13:24 ==
LOC: LBN 13:04
PROVIDERS: PCP Nurse Practitioner Family; Visit Provider Nurse Practitioner Adult Health
DX: Z11.59 Encounter for screening for other viral diseases (principal)
CPT/HCPCS: U0003

== ENCOUNTER → 2020-07-03 08:56 | Outpatient (BNVA) | payer MEDICARE, SELFPAY | PROVIDERS: PCP Nurse Practitioner Family; Referring Provider Nurse Practitioner Family; Visit Provider Psychiatry & Neurology Neurology | DX: G95.0 Syringomyelia and syringobulbia (principal); G93.0 Cerebral cysts; G70.00 Myasthenia gravis without (acute) exacerbation; G57.93 Unspecified mononeuropathy of bilateral lower limbs; R29.898 Other symptoms and signs involving the musculoskeletal system; R25.2 Cramp and spasm; G47.00 Insomnia, unspecified | CPT/HCPCS: 99213; 99442 ==

== ENCOUNTER 2020-10-03 11:19 | Outpatient (REF) | payer MEDICARE, SELFPAY ==
[2020-10-03 11:47] LABS: Bilirubin Negative (Negative); Blood Negative (Negative); Glucose Negative (Negative); Ketones Negative (Negative); Leukocyte Esterase Negative (Negative); Nitrite Negative (Negative); Specific Gravity 1.025 (1.005-1.025); Urobilinogen 0.2 EU/dL (Up TO 0.2); pH 6.5 (5-8)
[2020-10-03 12:33] LABS: Clarity Sl Cloudy (Clear)
[2020-10-03 12:36] LABS: Bacteria Many HPF (Negative); C & S Indicated? Yes; Casts Negative LPF (Negative); Crystals Negative HPF (Negative); Epithelial Cells Rare HPF (Negative); Mucus Negative (Negative); RBC Negative HPF (0-2); WBC Negative HPF (0-5)
== END 2020-10-03 11:20 | disposition home or self-care (01) ==
LOC: LBN 11:19
PROVIDERS: PCP Nurse Practitioner Family; Visit Provider Nurse Practitioner Family
DX: R30.0 Dysuria (principal); R35.0 Frequency of micturition
CPT/HCPCS: 81003; 81015; 87086; 87186

== ENCOUNTER → 2020-11-12 07:30 | Outpatient (BNVA) | payer MEDICARE, SELFPAY | PROVIDERS: PCP Nurse Practitioner Family; Referring Provider Nurse Practitioner Family; Visit Provider Psychiatry & Neurology Neurology | DX: G95.0 Syringomyelia and syringobulbia (principal); G47.00 Insomnia, unspecified; G57.93 Unspecified mononeuropathy of bilateral lower limbs; G70.00 Myasthenia gravis without (acute) exacerbation; G93.0 Cerebral cysts; R25.2 Cramp and spasm; R29.898 Other symptoms and signs involving the musculoskeletal system | CPT/HCPCS: 99443 ==

== ENCOUNTER 2021-03-24 16:26 | Emergency (ER) | payer MEDICARE, SELFPAY ==
[2021-03-24] VITALS (22 sets, daily range): BP systolic 152–158; BP diastolic 96–122; PULSE 96–110; RESP 12–23; TEMP 36.6; O2SAT 95–97
--- NOTE | 2021-03-24 16:45 | DI.CT_ITS ---
Exam(s) CT ABDOMEN PELVIS W EXAM: CT ABDOMEN PELVIS W CLINICAL HISTORY: diffuse discomfort, no BM x 1 week. TECHNIQUE: Imaging Protocol: Axial computed tomography images with coronal and sagittal reformatted images were created and reviewed CONTRAST MATERIAL: Intravenous: Omnipaque 350 Contrast volume:100 ml Oral: no COMPARISON: CT ABD/PELVIS WO W CONTRAST from 03/07/2018 FINDINGS: ABDOMEN: Lung Bases: Normal where visualized. The left jaye diaphragm is again noted to be elevated Liver: Normal density. No measurable mass. Gallbladder and biliary tract: No radiodense calculus or dilation. Pancreas: Normal density, no abnormal calcifications or inflammatory process. Spleen: Normal. Kidneys: Normal size, contour and axis. Stable appearance of prominent bilateral extrarenal pelvis. No radiodense stones or obstructive uropathy. Small bilateral cysts. No masses seen. Adrenal glands: No masses seen. Abdominal Aorta: Abdominal portion non-dilated. PELVIS: Bladder: No gross wall thickening. No calculi.No focal mass. Bowel: There is a large quantity of stool seen throughout the colon. Prominent sigmoid diverticulosi s. No obstruction or bowel wall thickening. No evidence of appendicitis. A duodenal diverticulum is noted. Peritoneal cavity: No ascites, collection or mesenteric inflammatory response. Tubing is again noted in the peritoneal cavity. Bones: Degenerative changes and scoliosis.. Reproductive organs: Within normal limits. Lymph nodes: Stable left para-aortic lymph node at the level of the renal hilum. Impression: Large quantity of stool. No acute abnormality. RADIATION DOSE DELIVERED: 1,021.09mGy.cm Total DLP DATA REPOSITORY: All CT scans at this facility are submitted to the National Radiology Data Registry (NRDR) Dose Index Registry (DIR) with the [employer] (A[employer]). RADIATION OPTIMIZATION: All CT scans at this facility use at least one of these dose optimization te chniques: automated exposure control; mA and/or kV adjustment per patient size (includes targeted exa ms where dose is matched to clinical indication); or iterative reconstruction.
--- NOTE | 2021-03-24 16:52 | W.ED.GENAD ---
Discharge Plan Disposition Patient Disposition: HOME Condition: Stable Discharge Details Clinical Impression: Depression, Constipation, chronic Primary Care Provider: Prashanth Thayer ED Provider: Itzel Bernardo Home Meds and New Rx's Prescriptions: Continued gabapentin 300 mg capsule 300 mg PO DIRECTED Qty: 450 RF: 3 pyridostigmine bromide [Mestinon Timespan] 180 mg tablet extended release 180 mg PO DAILY Qty: 90 RF: 3 lidocaine-prilocaine 2.5-2.5 % cream 1 applic TP Q4H PRN Qty: 120 RF: 5 lidocaine [Lidoderm] 5 % adhesive patch,medicated 1 patch topical DAILY RF: 0 cyclobenzaprine 10 mg tablet See Rx Instructions PO HS PRN (Reason: muscle spasm) Qty: 270 RF: 3 acetaminophen 500 mg tablet 1,000 mg PO TID PRN PRN (Reason: pain) Qty: 90 RF: 0 oxycodone 5 mg tablet 10 mg PO BID PRN MDD 3 tabs PRN (Reason: pain) Qty: 120 RF: 0 potassium chloride [Klor-Con M20] 20 MEQ tablet,ER particles/crystals 20 meq PO DAILY RF: 0 lisinopril-hydrochlorothiazide [Zestoretic] 1 EACH tablet 1 tab-cap PO DAILY RF: 0 zolpidem [Ambien] 5 mg tablet 5 mg PO QHS PRN (Reason: insomnia) RF: 0 sennosides 8.6 mg tablet 8.6 mg PO BID RF: 0 aspirin 81 mg tablet 81 mg PO DAILY RF: 0 omeprazole 20 mg capsule,delayed release(DR/EC) 20 mg PO DAILY Qty: 30 RF: 2 ondansetron 4 mg tablet,disintegrating 4 mg PO Q8H PRN (Reason: nausea and vomiting) Qty: 30 RF: 0 Discharge Instructions Instructions: Constipation (ED), Depression (ED) Additional Instructions: Your imaging and labs are reassuring today. CT does show moderate constipation but no obstruction. Please encourage hydration. You may use MiraLAX to help promote bowel movement. In regard to your weakness, I would like you to work once again with physical therapy. A referral for for therapy as well as home health have been sent. I have asked her care management team to reach out to you to discuss options at home to help better manage your chronic weakness and limited mobility. As discussed by mental health, please continue to seek care with your therapist. Attached is a list of local behavioral health services as well as support lines. Please contact these to discuss further counseling and psychiatric care for your depression. If you develop thoughts of self-harm, suicidal ideations, suicidal plan or other new/worsening symptoms to seek care urgently once again. Otherwise, I would like to follow-up with primary care in 1 week for reevaluation. If you develop any new or worsening symptoms please seek care urgently once again. Referrals: Prashanth Thayer NP [Primary Care Provider] - Discharge Data Discharge Date/Time-TO BE ENTERED AT DEPARTURE: 03/24/21 21:30 Medical Decision Making Patient is an 65-year-old female presenting today with chief complaint of feeling off. She primarily associates this with GI discomfort. She reports that she has had minimal stool output in the past week. She reports that she has been performing manual disimpaction with minimal relief. She reports that she has had a time of nausea but again today. No fevers or chills. No vomiting. Denies any significant abdominal discomfort. Patient reports that she had surgical intervention on her lumbar spine last May. She was in local rehabilitation center x3 months. She reports that while there she did begin ambulating again. However, since being home she has had worsening weakness to her bilateral lower extremities the point that she has been wheelchair-bound for the past several months. States she does have electronic as well as a manual wheelchair. Patient has not followed up with her spine surgeon since the time of discharge. She is denying any back pain currently. No change in her ambulatory status, no change in her weakness recently. EMS is concerned that patient has had multiple falls and is averaging approximately 12 visits per month to her place of residence secondary to falls requiring assistance to get back up. On exam, patient appears nontoxic. She is reporting some fairly diffuse abdominal discomfort but no peritoneal findings on exam. Abdomen is not symptomatic. Rectal exam is normal, heme-negative stool. She does have some muscular wasting of the bilateral lower extremities. Will obtain imaging of her abdomen, baseline labs. Shortly after arrival, patient reported that she does have suicidal ideations. He seemed quite passive. She denies any plan. She does not actually want to commit suicide but rather about this fairly frequently. However, she reports that she has suicidal ideation support several years. Is followed by therapist. We will have mental health evaluate the patient. Labs reviewed. No leukocytosis. Stable H&H. Specimen slightly low at 3.3 will replenish this , Here. Alk phos elevated at 125, this is baseline for the patient. FINDINGS: Tubes, catheters and devices: A catheter fragment within the abdomen may represent a portion of an abandoned [employer] shunt catheter. Recommend clinical correlation. Lungs: Mild atelectatic changes of the right lung base. Heart: Mild cardiac enlargement. No pericardial effusion. Diaphragm: Moderate to severe chronic elevation of the left hemidiaphragm. This is evident on prior CT from 2018. This is of uncertain significance. The entire region was not imaged with exclusion of the dome of the diaphragm and some of the intra-abdominal contents extending up to the hemidiaphragm. Liver: Normal. No mass. Gallbladder and bile ducts: Normal. No calcified stones. No ductal dilation. Pancreas: Normal. No ductal dilation. Spleen: Spleen is normal in size, contour, and enhancement. The most superior tip of the spleen is excluded. Adrenal glands: Normal. No mass. Kidneys and ureters: Superior pole right renal benign-appearing cyst measuring 13 mm. Posterior right renal 15 mm benign-appearing cyst. Subcentimeter posterior left renal cortical cyst. Bilateral renal pelvis distension without sangita hydronephrosis. This may be secondary to variant extrarenal pelvis anatomy. Stomach and bowel: Gastric morphology is unremarkable. No edema. No gastric outlet obstruction. A portion of the gastric fundus is excluded within the elevated left hemidiaphragm region. Small bowel loops are normal in course and caliber. There is no mucosal edema or bowel wall thickening. No obstructive features. There is suggestion of a prominent diverticulum arising from the 3rd portion of the duodenum measuring approximately 3.1 cm. Axial series 4, image 31. Coronal series 6, image 32. This is present on previous study from 2018 as well. The colon contains formed fecal material. There is no bowel wall thickening. No inflammatory features. No obstruction. There is scattered colonic diverticulosis without acute diverticulitis. No mechanical bowel obstruction. There is moderate feces in the proximal transverse colon and right colon. Appendix: No evidence of appendicitis. Intraperitoneal space: No free fluid in the abdomen or pelvis. Vasculature: Unremarkable. No abdominal aortic aneurysm. Lymph nodes: Left para-aortic retroperitoneal lymph node at the level of the renal hilum is noted. This measures 2.1 x 0.9 cm. This is unchanged since 2018. Urinary bladder: The urinary bladder is unremarkable. Reproductive: Uterus and adnexa are unremarkable. Bones/joints: Degenerative lumbar spine disease. Soft tissues: Abdominal wall soft tissues are unremarkable. IMPRESSION: 1. No acute findings of the abdomen or pelvis. 2. Moderate fecal retention in the mid transverse colon proximally to the cecum. No distal obstruction. No edema or mass. 3. No free fluid in the abdomen or pelvis. 4. Chronic nonspecific severe elevation of the left hemidiaphragm. 5. Benign bilateral renal cysts. No further imaging follow-up recommended based on MIPS criteria. 6. Catheter fragment in the abdomen may represent an abandoned [employer] shunt catheter. Patient was evaluated by mental health. Lucio does not feel that patient is actively suicidal. I do agree with this assessment. Rather, patient will be given list of other local agencies to further help with her depression. She reports that she is been on antidepressants multiple times historically did not tolerate these well or get much relief from them. I did advise that she may further benefit from a psychiatrist as she has not been seen by psychiatrist in the past. In regard to the patient's abdominal discomfort, I advised that she does have moderate constipation. We discussed treatment options. She would prefer oral route. We did discuss admission, particularly given the patient's weakness since her surgery. She has had multiple falls and is required EMS frequently. However, patient feels that she is able to mobilize herself well with her wheelchair. She does not want inpatient admission. She does not want to go to a rehabilitation center. However, she is willing to work with home physical therapy. Referral will be sent, I have asked care management to assist with this. We discussed treatment options at home to help with her constipation. Encourage hydration. Strict return precautions were discussed. Encourage close follow-up with primary care. All the patient's concerns were addressed in agreement this plan HPI General Mode of arrival: EMS. Date/Time Provider Initiated Documentation: 03/24/21 16:52. Limitations to Documentation: no limitations. Information obtained by: patient, EMS and RN notes reviewed. History of Present Illness 65 year old F presents to the emergency department with the chief complaint of constipation, abdominal discomfort, described as moderate, Quality is described as aching, and is localized to the abdomen. Patient reports no radiation. Patient started experiencing this month(s) and it has been constant. No relieving factors improve symptom(s), No exacerbating factors reported . Patient notes nausea/vomiting (nausea, no vomiting) and weakness (associates with surgery last fall); denies chest pain, fever/chills, rash and shortness of breath. Patient did receive the following treatments prior to arrival, none Related Data Home Medications Medication Instructions Recorded Confirmed lisinopril-hydrochlorothiazide 1 tab-cap PO DAILY tab-cap 03/02/18 03/13/21 [Zestoretic] potassium chloride [Klor-Con M20] 20 meq PO DAILY tab-cap 03/02/18 03/13/21 gabapentin 300 mg capsule 300 mg PO DIRECTED #450 cap 04/14/20 03/13/21 lidocaine-prilocaine 2.5 %-2.5 % 1 applic TP Q4H PRN #120 gm 04/14/20 03/13/21 topical cream pyridostigmine bromide 180 mg 180 mg PO DAILY #90 tab-cap 04/14/20 03/13/21 tablet,extended release sennosides 8.6 mg tablet 8.6 mg PO BID 07/02/20 03/13/21 zolpidem 5 mg tablet 5 mg PO QHS PRN 07/02/20 03/13/21 lidocaine 5 % topical patch 1 patch TOPICAL DAILY 09/16/20 03/13/21 aspirin 81 mg tablet 81 mg PO DAILY 11/12/20 03/13/21 cyclobenzaprine 10 mg tablet See Rx Instructions PO HS PRN #270 11/12/20 03/13/21 tab omeprazole 20 mg capsule,delayed 20 mg PO DAILY #30 cap 01/01/21 03/13/21 release ondansetron 4 mg disintegrating 4 mg PO Q8H PRN #30 tab 02/11/21 03/13/21 tablet acetaminophen 500 mg tablet 1,000 mg PO TID PRN PRN #90 tab 03/13/21 03/13/21 oxycodone 5 mg tablet 10 mg PO BID PRN PRN #120 tab MDD 03/13/21 03/13/21 3 tabs Previous Rx's Medication Instructions Recorded gabapentin 300 mg capsule 300 mg PO DIRECTED #450 cap 04/14/20 lidocaine-prilocaine 2.5 %-2.5 % 1 applic TP Q4H PRN #120 gm 04/14/20 topical cream pyridostigmine bromide 180 mg 180 mg PO DAILY #90 tab-cap 04/14/20 tablet,extended release cyclobenzaprine 10 mg tablet See Rx Instructions PO HS PRN #270 11/12/20 tab omeprazole 20 mg capsule,delayed 20 mg PO DAILY #30 cap 01/01/21 release ondansetron 4 mg disintegrating 4 mg PO Q8H PRN #30 tab 02/11/21 tablet acetaminophen 500 mg tablet 1,000 mg PO TID PRN PRN #90 tab 03/13/21 oxycodone 5 mg tablet 10 mg PO BID PRN PRN #120 tab MDD 03/13/21 3 tabs Allergies Allergy/AdvReac Type Severity Reaction Status Date / Time codeine Allergy Severe Verified 03/24/21 18:03 iodine Allergy Severe Verified 03/24/21 18:03 Penicillins Allergy Severe Anaphylaxsi Verified 03/24/21 18:03 s Sulfa (Sulfonamide Allergy Severe Swelling/Ed Verified 03/24/21 18:03 Antibiotics) kendal trazodone AdvReac Intermediate PER PT Verified 03/24/21 18:03 MAKES HER HEART RACE. General Stated Complaint: GenMedical ZEV: 2 Review of Systems Constitutional Constitutional: Reports as per HPI, Denies chills, Denies fatigue, Denies fever(s) and Denies headache(s) ENT Ears, Nose, Mouth, and Throat: Denies headache(s) Cardiovascular Cardiovascular: Reports as per HPI, Denies chest pain and Denies dyspnea Respiratory Respiratory: Reports as per HPI, Denies cough and Denies dyspnea Gastrointestinal Gastrointestinal: Reports as per HPI Musculoskeletal Musculoskeletal: Reports as per HPI, Reports abnormal gait (uses wheelchair at baseline) and Denies back pain Integumentary/Breasts Skin/Breast: Reports as per HPI and Denies rash Neurologic Neurologic: Reports as per HPI, Reports abnormal gait (uses wheelchair at baseline) and Denies headache(s) Endocrine Endocrine: Denies fatigue [facility] Medical History Alcohol abuse history of Anxiety Arachnoid cyst Ataxia Blurred vision Bunion of unspecified foot Chronic kidney disease Chronic pain Chronic renal insufficiency Constipation, chronic COPD (chronic obstructive pulmonary disease) Dental caries Depression DNI (do not intubate) DNR (do not resuscitate) Former smoker Frequent falls GERD (gastroesophageal reflux disease) History of gluten intolerance History of lacunar cerebrovascular accident Hyperlipidemia Hypertension Hypokalemia Insomnia previous misuse of Ambien Intracranial arachnoid cyst Left hand weakness Migraine headache without aura Myasthenia gravis Pain Peripheral neuropathy POLST (Physician Orders for Life-Sustaining Treatment) COLST completed 10/30/2020 with Jennifer Lugo, SKIN GRADER, DNR/DNI Prediabetes Spinal stenosis Syrinx of spinal cord Urinary frequency Surgical History H/O craniotomy ; L cerebellar arachnoid cyst drain with shunt placement H/O thymectomy S/P appendectomy S/P cystourethroscopy with dilation of urethral stricture S/P tonsillectomy Family History Mother Diabetes Father Neuropathy Back problem Brother Myasthenia gravis Social History Smoking/Tobacco Use Status: Former Tobacco Use Smoking risk assessment performed?: Yes Alcohol Intake: former Drug use: Never Details: Patient states that she has felt suicidal for a while now but it is worse. She states that she does not currently have a plan Household members: other Housing: half-way Number of Children: 0 Pets and animals: No What type of physical activity do you participate in: none Seatbelt use: always Do you feel safe at home: Yes Do you feel safe in your relationship?: Yes Additional Social history: She does not drive. Exam Const General: cooperative, healthy appearing, comfortable, no acute distress and well developed Nutritional Appearance: average body habitus and well nourished Orientation: alert and awake [facility] Head: normal to inspection Mouth: moist mucous membranes Resp Effort & Inspection: normal respiratory effort, able to speak in complete sentences and no respiratory distress Auscultation: clear to auscultation bilaterally, no rales, no rhonchi and no wheezes Cardio Rate: regular rate Rhythm: regular rhythm Heart Sounds: S1 normal and S2 normal GI Inspection: normal to inspection, no edema, non-distended, no visible herniation and no visible pulsation Palpation: soft, no hepatosplenomegaly, not firm, no guarding, no hernias, no masses, no pulsatile masses, not rigid and tender (diffusely tender, no peritoneal findings) Percussion: normal to percussion Auscultation: normal bowel sounds Rectal Exam - female: visual inspection normal, normal sphincter tone, heme negative stool and No tenderness Back/Spine/Pelvis Back: no CVA tenderness Skin General skin exam: no rashes or lesions noted Trauma: no lacerations or abrasions Neuro General: patient alert and patient awake Cognition: normal cognition Speech: speech normal Gait: gait abnormal (patient is nonambulatory at baseline) Psych Appearance: grossly normal and well kempt Mental Status: mental status grossly normal Speech and Movement: speech and movement normal Course Vital Signs Vital signs: Vital Signs Temperature 36.6 C 03/24/21 16:26 Pulse 103 H 03/24/21 16:26 Blood Pressure 156/96 H 03/24/21 16:26 Pulse Oximetry 96 03/24/21 16:26 Temperature 36.6 C 03/24/21 16:26 Temperature Source Skin 03/24/21 16:26 Pulse 103 H 03/24/21 16:26 Blood Pressure 156/96 H 03/24/21 16:26 Blood Pressure Position Supine 03/24/21 16:26 Pulse Oximetry 96 03/24/21 16:26 Oxygen Delivery Method Room Air 03/24/21 16:26 Oxygen Flow Rate 0 03/24/21 16:26
[2021-03-24] MEDS: Normal Saline 1,000 ML 1000 ML IV (17:05)
[2021-03-24 17:30] LABS: Abs Immature Grans 0.01 10^3/uL (0.0-0.06); Absolute Basophil Count 0.05 10^3/uL (0.0-0.2); Absolute Eosinophil Count 0.03 10^3/uL (0.0-0.7); Absolute Lymphocyte Count 0.62 10^3/uL (1.2-3.4); Absolute Monocyte Count 0.51 10^3/uL (0.1-0.8); Absolute Neutrophil Count 4.11 10^3/uL (1.2-6.7); Basophils % 0.9; Eosinophils % 0.6; HCT 42.2 % (36.0-46.0); Immature Grans % 0.2; Lymphocytes % 11.6; MCHC 30.8 % (32.0-36.0); MCV 81.2 fL (80-95); MPV 9.8 fL (8.0-11.0); Monocytes % 9.6; Neutrophils % 77.1; Nucleated RBC 0 %; Platelet Count 340 10^3/uL (130-400); RDW 16.5 % (11.7-14.6); RDW-SD 48.6 fL; WBC 5.33 10^3/uL (4.4-10.8)
[2021-03-24 17:43] LABS: ALT 26 U/L (14-59); AST 21 U/L (15-37); Albumin 4.1 g/dL (3.4-5.0); Alkaline Phosphatase 125 U/L (46-116); Anion Gap 8.8 mmol/L (3-11); BUN 15 mg/dL (7-18); Bilirubin, Total 0.7 mg/dL (0.2-1.0); CO2 30.2 mmol/L (21.0-32.0); CREATININE 1.1 mg/dL (0.55-1.02); Calcium 10.4 mg/dL (8.5-10.1); Chloride 103 mmol/L (98-107); Estimated GFR 49.85 (mL/min/1.73m2); Glucose 100 mg/dL (74-106); Magnesium 1.8 mg/dL (1.8-2.4); Potassium 3.3 mmol/L (3.5-5.1); Sodium 142 mmol/L (136-145); Total Protein 8.4 g/dL (6.4-8.2)
[2021-03-24 17:52] LABS: Bilirubin Negative (Negative); Blood Negative (Negative); Clarity Clear (Clear); Glucose Negative (Negative); Ketones Negative (Negative); Leukocyte Esterase Negative (Negative); Nitrite Negative (Negative); Specific Gravity 1.015 (1.005-1.025); Urobilinogen 0.2 EU/dL (Up TO 0.2); pH 7.5 (5-8)
[2021-03-24 17:53] LABS: Lipase 184 U/L (73-393); TSH (W/Ref FT4) 0.58 uIU/mL (0.36-3.74)
[2021-03-24 18:06] LABS: Salicylate < 2.8 mg/dL (<2.8)
[2021-03-24 18:07] LABS: Acetaminophen < 2 ug/mL (10-30)
[2021-03-24 18:08] LABS: *AMPHETAMINES SCREEN URINE Negative (Negative); *BARBITURATES SCREEN URINE Negative (Negative); *BENZODIAZEPINES SCREEN URINE Negative (Negative); Cannabinoids THC Negative (Negative); Cocaine Screen,Urine Negative (Negative); METHADONE URINE SCREEN Negative (Negative); OPIATES URINE SCREEN Negative (Negative)
[2021-03-24 18:09] LABS: ETHANOL BLOOD < 3.0 mg/dL (<3)
[2021-03-24 18:09] LABS: Tricyclic Antidepressants Negative (Negative)
[2021-03-24] MEDS: Normal Saline - Diluent 50 ML VIAL IV (18:57)
[2021-03-24] MEDS: Normal Saline Flush 10 ML SYR IVP (19:05)
--- NOTE | 2021-03-24 19:14 | DI.VRAD_ITS ---
PROCEDURE INFORMATION: Exam: CT Abdomen And Pelvis With Contrast Exam date and time: 03/24/2021 4:57 PM Age: 65 years old Clinical indication: Condition or disease; Other: Diffuse discomfort, no bm x 1 week TECHNIQUE: Imaging protocol: Computed tomography of the abdomen and pelvis with contrast. Radiation optimization: All CT scans at this facility use at least one of these dose optimization techniques: automated exposure control; mA and/or kV adjustment per patient size (includes targeted exams where dose is matched to clinical indication); or iterative reconstruction. Contrast material: OMNIPAQUE 350; Contrast volume: 100 ml; Contrast route: INTRAVENOUS (IV); COMPARISON: CT ABD/PELVIS WO W CONTRAST 03/07/2018 8:36 AM FINDINGS: Tubes, catheters and devices: A catheter fragment within the abdomen may represent a portion of an abandoned [employer] shunt catheter. Recommend clinical correlation. Lungs: Mild atelectatic changes of the right lung base. Heart: Mild cardiac enlargement. No pericardial effusion. Diaphragm: Moderate to severe chronic elevation of the left hemidiaphragm. This is evident on prior CT from 2018. This is of uncertain significance. The entire region was not imaged with exclusion of the dome of the diaphragm and some of the intra-abdominal contents extending up to the hemidiaphragm. Liver: Normal. No mass. Gallbladder and bile ducts: Normal. No calcified stones. No ductal dilation. Pancreas: Normal. No ductal dilation. Spleen: Spleen is normal in size, contour, and enhancement. The most superior tip of the spleen is excluded. Adrenal glands: Normal. No mass. Kidneys and ureters: Superior pole right renal benign-appearing cyst measuring 13 mm. Posterior right renal 15 mm benign-appearing cyst. Subcentimeter posterior left renal cortical cyst. Bilateral renal pelvis distension without sangita hydronephrosis. This may be secondary to variant extrarenal pelvis anatomy. Stomach and bowel: Gastric morphology is unremarkable. No edema. No gastric outlet obstruction. A portion of the gastric fundus is excluded within the elevated left hemidiaphragm region. Small bowel loops are normal in course and caliber. There is no mucosal edema or bowel wall thickening. No obstructive features. There is suggestion of a prominent diverticulum arising from the 3rd portion of the duodenum measuring approximately 3.1 cm. Axial series 4, image 31. Coronal series 6, image 32. This is present on previous study from 2018 as well. The colon contains formed fecal material. There is no bowel wall thickening. No inflammatory features. No obstruction. There is scattered colonic diverticulosis without acute diverticulitis. No mechanical bowel obstruction. There is moderate feces in the proximal transverse colon and right colon. Appendix: No evidence of appendicitis. Intraperitoneal space: No free fluid in the abdomen or pelvis. Vasculature: Unremarkable. No abdominal aortic aneurysm. Lymph nodes: Left para-aortic retroperitoneal lymph node at the level of the renal hilum is noted. This measures 2.1 x 0.9 cm. This is unchanged since 2018. Urinary bladder: The urinary bladder is unremarkable. Reproductive: Uterus and adnexa are unremarkable. Bones/joints: Degenerative lumbar spine disease. Soft tissues: Abdominal wall soft tissues are unremarkable. IMPRESSION: 1. No acute findings of the abdomen or pelvis. 2. Moderate fecal retention in the mid transverse colon proximally to the cecum. No distal obstruction. No edema or mass. 3. No free fluid in the abdomen or pelvis. 4. Chronic nonspecific severe elevation of the left hemidiaphragm. 5. Benign bilateral renal cysts. No further imaging follow-up recommended based on MIPS criteria. 6. Catheter fragment in the abdomen may represent an abandoned [employer] shunt catheter. Dictated and Authenticated by: Eloy Holcomb MD. Ordering:BRIANNA Robbins MD
== END 2021-03-24 21:30 | disposition home or self-care (01) ==
PROVIDERS: Emergency Provider Physician Assistant; PCP Nurse Practitioner Family
DX: F32.9 Major depressive disorder, single episode, unspecified (principal); K59.09 Other constipation; R45.851 Suicidal ideations; F10.11 Alcohol abuse, in remission; R53.1 Weakness
CPT/HCPCS: 80053; 80307; 83690; 96360; 99285; 74177; 80320; 80329; 81003; 83735; 84443; 85025; 99284

== ENCOUNTER → 2021-04-16 08:09 | Outpatient (BNVA) | payer MEDICARE, SELFPAY | PROVIDERS: PCP Nurse Practitioner Family; Referring Provider Nurse Practitioner Family; Visit Provider Psychiatry & Neurology Neurology | DX: G95.0 Syringomyelia and syringobulbia (principal); G93.0 Cerebral cysts; G70.00 Myasthenia gravis without (acute) exacerbation; G57.93 Unspecified mononeuropathy of bilateral lower limbs; R29.898 Other symptoms and signs involving the musculoskeletal system; R25.2 Cramp and spasm; G47.00 Insomnia, unspecified | CPT/HCPCS: 99443 ==

== ENCOUNTER 2021-04-23 20:32 | Outpatient (REF) | payer MEDICARE, SELFPAY | END 2021-04-23 20:33 | disposition home or self-care (01) | LOC: NCHCN 20:32 | PROVIDERS: PCP Nurse Practitioner Family; Visit Provider Nurse Practitioner Family | DX: L08.89 Other specified local infections of the skin and subcutaneous tissue (principal); M79.672 Pain in left foot | CPT/HCPCS: 87077; 87070; 87186; 87205 ==

== ENCOUNTER 2021-07-09 12:24 | Inpatient (IN) | payer MEDICARE, SELFPAY ==
[2021-07-09] VITALS (36 sets, daily range): BP systolic 81–119; BP diastolic 49–89; PULSE 86–106; RESP 12–22; TEMP 35.2–37.4; O2SAT 92–98
--- NOTE | 2021-07-09 12:30 | RT.EKG_ITS ---
APPROVED REPORT Exam: Resting ECG Reason for Exam: syncope Patient Location: E HR:92 bpm ECG Measurements Heart Rate 92 AXIS KS 148 P 54 QRSd 79 QRS 18 QT 352 T 41 QTc 436 Conclusion Sinus rhythm...normal P axis, V-rate 60- 99 Low voltage, precordial leads...precordial leads <1.0mV. Sinus. No STEMI. I have reviewed and interpreted ECG and agree with software generated interpretation.
--- NOTE | 2021-07-09 12:30 | ED.GENADUL_ITS ---
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 Blood pressure initially hypotensive 82/49, now systolic improving to 90s-100s. Heart rate within normal limits. Patient has no obvious focal deficits or trauma on exam. Rectal exam noted brown stool which is guaiac positive. Her abdomen is soft and nontender. Patient states she likely cannot live at home alone due to her increasing needs secondary to her multiple medical problems. Due to her syncopal episode and increasing weakness, will obtain screening labs, EKG, urinalysis, chest x-ray, give fluids, morphine for her chronic pain and reassess. Labs reviewed. White blood cell count 7. Hemoglobin 6.4, Hematocrit 21.3. Troponin negative. Urinalysis notes 20-50 WBCs with many bacteria and epithelial cells with small leukocyte esterase. 1 unit PRBCs ordered and IV protonix ordered. Chest x-ray notes possible underlying infiltrate/atelectasis. She reports no cough or shortness of breath and has normal oxygen saturation so not consistent with pneumonia. Case discussed with hospitalist who accepts patient for admission. Patient BP improved. Systolic 110s. Heart rate within normal limits. Patient is agreeable to plan. Medical Records Medical records reviewed: Yes I reviewed the patient's medical records. Imaging Data Radiologic Study: Radiologist's impression: XR Chest Exam date and time: 07/09/2021 1:19 PM Age: 66 years old Clinical indication: Pain; On breathing; Patient HX: R/O acute disease. TECHNIQUE: Imaging protocol: XR of the chest. Views: 1 view. COMPARISON: CT ABDOMEN PELVIS W 03/24/2021 6:17 PM FINDINGS: Lungs: Redemonstration of elevated left hemidiaphragm with left basilar atelectasis. Possibility of underlying infiltrate is difficult to entirely exclude. Mild pulmonary vascular congestion and right basilar atelectasis. Pleural spaces: Unremarkable. No pleural effusion. No pneumothorax. Heart/Mediastinum: Cardiomediastinal countour within normal limits. Bones/joints: Median sternotomy wires. Degenerative changes of the thoracic spine. No acute osseous abnormality. IMPRESSION: Redemonstration of elevated left hemidiaphragm with left basilar atelectasis. Possibility of underlying infiltrate is difficult to entirely exclude. Mild pulmonary vascular congestion and right basilar atelectasis. Lab Data Lab results reviewed: Yes I reviewed the patient's lab results. Labs: Laboratory Tests Range/Units 07/09/21 07/09/21 07/09/21 12:55 12:55 12:55 WBC (4.4-10.8) 10^3/uL 7.45 RBC (3.93-5.22) 10^6/uL 2.43 L Hgb (11.2-15.7) g/dL 6.4 L* Hct (36.0-46.0) % 21.3 L MCV (80-95) fL 87.7 MCH (27.0-33.0) pg 26.3 L MCHC (32.0-36.0) % 30.0 L RDW (11.7-14.6) % 14.8 H Plt Count (130-400) 10^3/uL 438 H MPV (8.0-11.0) fL 9.2 Immature Gran % 0.8 Neutrophils % 75.1 Lymphocytes % 13.7 Monocytes % 7.8 Eosinophils % 2.3 Basophils % 0.3 Nucleated RBC % % 0 Absolute Neutrophils (1.2-6.7) 10^3/uL 5.60 Absolute Lymphocytes (1.2-3.4) 10^3/uL 1.02 L Absolute Monocytes (0.1-0.8) 10^3/uL 0.58 Absolute Eosinophils (0.0-0.7) 10^3/uL 0.17 Absolute Basophils (0.0-0.2) 10^3/uL 0.02 RBC Morphology See Below Hypochromasia 2+ Poikilocytosis 1+ Sodium (136-145) mmol/L 140 Potassium (3.5-5.1) mmol/L 4.5 Chloride (98-107) mmol/L 107 Carbon Dioxide (21.0-32.0) mmol/L 28.5 Anion Gap (3-11) mmol/L 4.5 BUN (7-18) mg/dL 46 H Creatinine (0.55-1.02) mg/dL 1.7 H Estimated GFR/1.73 m2 (mL/min/1.73m2) 30.07 Glucose (74-106) mg/dL 86 Calcium (8.5-10.1) mg/dL 8.3 L Magnesium (1.8-2.4) mg/dL 2.1 Iron (50-170) ug/dL TIBC (250-450) ug/dL Transferrin % Sat (15-50) % Total Bilirubin (0.2-1.0) mg/dL 0.2 AST (15-37) U/L 16 ALT (14-59) U/L 22 Alkaline Phosphatase (46-116) U/L 102 Troponin I (<0.06) ng/mL < 0.05 NT-Pro-B Natriuret Pep (<300) pg/mL 187 Total Protein (6.4-8.2) g/dL 5.9 L Albumin (3.4-5.0) g/dL 2.7 L Urine Color (Yellow) Urine Clarity (Clear) Urine pH (5-8) Ur Specific [place] (1.005-1.025) Urine Protein (Negative) mg/dL Urine Ketones (Negative) mg/dL Urine Blood (Negative) Urine Nitrite (Negative) Urine Bilirubin (Negative) Urine Urobilinogen (Up TO 0.2) EU/dL Ur Leukocyte Esterase (Negative) Urine RBC (0-2) HPF Urine WBC (0-5) HPF Ur Epithelial Cells (Negative) HPF Urine Crystals (Negative) HPF Urine Bacteria (Negative) HPF Urine Casts (Negative) LPF Urine Mucus (Negative) Urine Other (Negative) Ur Culture Indicated? Urine Glucose (Negative) mg/dL Patient ABO/Rh Antibody Screen Crossmatch Range/Units 07/09/21 07/09/21 07/09/21 12:55 13:25 13:55 WBC (4.4-10.8) 10^3/uL RBC (3.93-5.22) 10^6/uL Hgb (11.2-15.7) g/dL Hct (36.0-46.0) % MCV (80-95) fL MCH (27.0-33.0) pg MCHC (32.0-36.0) % RDW (11.7-14.6) % Plt Count (130-400) 10^3/uL MPV (8.0-11.0) fL Immature Gran % Neutrophils % Lymphocytes % Monocytes % Eosinophils % Basophils % Nucleated RBC % % Absolute Neutrophils (1.2-6.7) 10^3/uL Absolute Lymphocytes (1.2-3.4) 10^3/uL Absolute Monocytes (0.1-0.8) 10^3/uL Absolute Eosinophils (0.0-0.7) 10^3/uL Absolute Basophils (0.0-0.2) 10^3/uL RBC Morphology Hypochromasia Poikilocytosis Sodium (136-145) mmol/L Potassium (3.5-5.1) mmol/L Chloride (98-107) mmol/L Carbon Dioxide (21.0-32.0) mmol/L Anion Gap (3-11) mmol/L BUN (7-18) mg/dL Creatinine (0.55-1.02) mg/dL Estimated GFR/1.73 m2 (mL/min/1.73m2) Glucose (74-106) mg/dL Calcium (8.5-10.1) mg/dL Magnesium (1.8-2.4) mg/dL Iron (50-170) ug/dL 13 L TIBC (250-450) ug/dL 320 Transferrin % Sat (15-50) % 4 L Total Bilirubin (0.2-1.0) mg/dL AST (15-37) U/L ALT (14-59) U/L Alkaline Phosphatase (46-116) U/L Troponin I (<0.06) ng/mL NT-Pro-B Natriuret Pep (<300) pg/mL Total Protein (6.4-8.2) g/dL Albumin (3.4-5.0) g/dL Urine Color (Yellow) Yellow Urine Clarity (Clear) Clear Urine pH (5-8) 6.0 Ur Specific [place] (1.005-1.025) 1.015 Urine Protein (Negative) mg/dL Negative Urine Ketones (Negative) mg/dL Negative Urine Blood (Negative) Moderate H Urine Nitrite (Negative) Negative Urine Bilirubin (Negative) Negative Urine Urobilinogen (Up TO 0.2) EU/dL 0.2 Ur Leukocyte Esterase (Negative) Small H Urine RBC (0-2) HPF 5-10 H Urine WBC (0-5) HPF 20-50 H Ur Epithelial Cells (Negative) HPF Many Urine Crystals (Negative) HPF Negative Urine Bacteria (Negative) HPF Many Urine Casts (Negative) LPF Negative Urine Mucus (Negative) Negative Urine Other (Negative) Negative Ur Culture Indicated? No/Sq. Contamination Urine Glucose (Negative) mg/dL Negative Patient ABO/Rh O Positive Antibody Screen NEGATIVE Crossmatch See Detail ECG Data Attestation: I personally reviewed and interpreted this ECG (s) as follows: Interpretation: Rate of 92, sinus, no acute ST elevation or depression. OR 148. QRS 79. QTc 436. HPI General Mode of arrival: EMS . Date/Time Provider Initiated Documentation: 07/09/21 12:29 . Limitations to Documentation: no limitations . Information obtained by: patient . 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 Patient lives alone and is wheelchair-bound for the past year after surgery for a osteomyelitis. She states she has neuropathy in her feet for which she is on a fentanyl patch. Patient denies any injury today with her syncopal episode. She denies fever, chest pain, shortness of breath, abdominal pain or vomiting. She states she has been eating and drinking normally. Related Data Home Medications Medication Instructions Recorded Confirmed lisinopril-hydrochlorothiazide 1 tab-cap PO DAILY tab-cap 03/02/18 07/09/21 [Zestoretic] potassium chloride [Klor-Con M20] 20 meq PO DAILY tab-cap 03/02/18 07/03/21 gabapentin 300 mg capsule 300 mg PO DIRECTED #450 cap 04/14/20 07/03/21 lidocaine-prilocaine 2.5 %-2.5 % 1 applic TP Q4H PRN #120 gm 04/14/20 07/03/21 topical cream pyridostigmine bromide 180 mg 180 mg PO DAILY #90 tab-cap 04/14/20 07/09/21 tablet,extended release aspirin 81 mg tablet 81 mg PO DAILY 11/12/20 07/09/21 acetaminophen 500 mg tablet 1,000 mg PO TID PRN PRN #90 tab 03/13/21 07/09/21 sennosides 8.6 mg tablet 8.6 mg PO BID PRN 04/16/21 07/09/21 zolpidem 5 mg tablet 10 mg PO QHS PRN tab 04/16/21 07/09/21 lidocaine 5 % topical patch 1 patch TOPICAL DAILY PRN #30 ea 05/25/21 07/09/21 fentanyl 25 mcg/hr transdermal 1 patch TRANSDERMAL Q72H #10 ea 06/19/21 07/09/21 patch MDD 37 mcg/hr fentanyl 12 mcg/hr transdermal 1 patch TRANSDERMAL Q72H #7 ea MDD 07/03/21 07/09/21 patch 12 mcg/hr omeprazole 20 mg capsule,delayed 20 mg PO DAILY #30 cap 07/03/21 07/09/21 release ondansetron 4 mg disintegrating 4 mg PO Q8H PRN #30 tab 07/03/21 07/09/21 tablet Previous Rx's Medication Instructions Recorded gabapentin 300 mg capsule 300 mg PO DIRECTED #450 cap 04/14/20 lidocaine-prilocaine 2.5 %-2.5 % 1 applic TP Q4H PRN #120 gm 04/14/20 topical cream pyridostigmine bromide 180 mg 180 mg PO DAILY #90 tab-cap 04/14/20 tablet,extended release acetaminophen 500 mg tablet 1,000 mg PO TID PRN PRN #90 tab 03/13/21 lidocaine 5 % topical patch 1 patch TOPICAL DAILY PRN #30 ea 05/25/21 fentanyl 25 mcg/hr transdermal 1 patch TRANSDERMAL Q72H #10 ea 06/19/21 patch MDD 37 mcg/hr fentanyl 12 mcg/hr transdermal 1 patch TRANSDERMAL Q72H #7 ea MDD 07/03/21 patch 12 mcg/hr omeprazole 20 mg capsule,delayed 20 mg PO DAILY #30 cap 07/03/21 release ondansetron 4 mg disintegrating 4 mg PO Q8H PRN #30 tab 07/03/21 tablet Allergies Allergy/AdvReac Type Severity Reaction Status Date / Time codeine Allergy Severe Verified 07/09/21 12:33 iodine Allergy Severe Verified 07/09/21 12:33 Penicillins Allergy Severe Anaphylaxsi Verified 07/09/21 12:33 s Sulfa (Sulfonamide Allergy Severe Swelling/Ed Verified 07/09/21 12:33 Antibiotics) kendal trazodone AdvReac Intermediate PER PT Verified 07/09/21 12:33 MAKES HER HEART RACE. General ZEV: 2 Review of Systems All systems reviewed & are unremarkable except as noted in HPI and below Constitutional Constitutional: Reports as per HPI, Denies chills, Denies fever(s) and Reports weakness Eyes Eyes: Denies blurry vision ENT Ears, Nose, Mouth, and Throat: Denies dizziness, Denies sore throat and Denies throat swelling Cardiovascular Cardiovascular: Denies chest pain and Denies dyspnea Respiratory Respiratory: Denies cough and Denies dyspnea Gastrointestinal Gastrointestinal: Denies abdominal pain, Reports melena, Denies diarrhea and Denies vomiting Genitourinary Genitourinary: Denies hematuria and Denies dysuria Musculoskeletal Musculoskeletal: Denies back pain and Denies numbness Integumentary/Breasts Skin/Breast: Denies lesions and Denies rash Neurologic Neurologic: Denies dizziness, Denies localized weakness, Denies numbness and Reports weakness Allergic/Immunologic Allergic/Immunologic: Denies throat swelling [facility] Active Problem List DNI (do not intubate) (Acute) DNR (do not resuscitate) (Acute) POLST (Physician Orders for Life-Sustaining Treatment) (Acute) Constipation, chronic (Acute) Former smoker (Acute) Spinal stenosis (Acute) Urinary frequency (Acute) Frequent falls (Acute) Ataxia (Acute) Left hand weakness (Acute) Hypokalemia (Acute) Peripheral neuropathy (Acute) Arachnoid cyst (Acute) Chronic renal insufficiency (Acute) Dental caries (Acute) History of gluten intolerance (Acute) Bunion of unspecified foot (Acute) Blurred vision (Acute) Prediabetes (Acute) Pain (Acute) Chronic pain (Chronic) Weakness (Acute) Spasticity (Acute) Asymptomatic microscopic hematuria (Acute) Left arm weakness (Acute) Neuropathic pain of both legs (Chronic) Myasthenia gravis (Chronic) Migraine headache without aura (Chronic) GERD (gastroesophageal reflux disease) (Chronic) Syrinx of spinal cord (Chronic) Intracranial arachnoid cyst (Chronic) Hyperlipidemia (Chronic) Hypertension (Chronic) COPD (chronic obstructive pulmonary disease) (Chronic) Chronic kidney disease (Chronic) Insomnia (Chronic) Anxiety (Chronic) Depression (Chronic) Medical History History of lacunar cerebrovascular accident Urinary retention Surgical History H/O craniotomy 1980s; L cerebellar arachnoid cyst drain with shunt placement H/O thymectomy 1980s S/P appendectomy S/P cystourethroscopy with dilation of urethral stricture S/P tonsillectomy Family History Mother Diabetes Father Neuropathy Back problem Brother Myasthenia gravis Social History Smoking/Tobacco Use Status: Former Tobacco Use Smoking risk assessment performed?: Yes Alcohol Intake: former Drug use: Never Details: Patient states that she has felt suicidal for a while now but it is worse. She states that she does not currently have a plan Household members: other Housing: correction Number of Children: 0 Pets and animals: No What type of physical activity do you participate in: none Seatbelt use: always Do you feel safe at home: No Do you feel safe in your relationship?: Yes Additional Social history: She does not drive. Exam Const General: cooperative and no acute distress HENMT Head: normal to inspection Face and sinus: normal facial exam Eyes General: appearance normal, both eyes and all related structures Pupils: PERRL EOM: EOM intact bilaterally Neck Neck: normal visual inspection and No submandibular swelling Lymphatic: no lymphadenopathy noted Chest Chest: normal inspection of the chest and no tenderness Resp Effort & Inspection: normal respiratory effort and able to speak in complete sentences Auscultation: clear to auscultation bilaterally Cardio Rate: regular rate Rhythm: regular rhythm GI Inspection: normal to inspection Palpation: soft, not firm, not rigid and nontender Auscultation: hypoactive bowel sounds Rectal Exam - female: visual inspection normal and heme positive stool (stool brown in color) Rectal exam heme positive - female: 1+ Skin General skin exam: no rashes or lesions noted Neuro General: patient alert, patient awake and patient oriented x3 Cognition: normal cognition Speech: speech normal Sensory Exam: no sensory deficits noted Other: Unable to lift b/l lower extremities against gravity. MS b/l UE 5/5 with contractions of fingers b/l. Extrem General: no calf tenderness bilaterally and edema Laterality: bilateral (<1+ lower extremities) Other: Drop foot b/l. Distal lower extremity pulses intact b/l. Psych Appearance: grossly normal Mental Status: mental status grossly normal Affect: normal affect
[2021-07-09 13:11] LABS: Abs Immature Grans 0.06 10^3/uL (0.0-0.06); Absolute Basophil Count 0.02 10^3/uL (0.0-0.2); Absolute Eosinophil Count 0.17 10^3/uL (0.0-0.7); Absolute Lymphocyte Count 1.02 10^3/uL (1.2-3.4); Absolute Monocyte Count 0.58 10^3/uL (0.1-0.8); Basophils % 0.3; Eosinophils % 2.3; HCT 21.3 % (36.0-46.0); Immature Grans % 0.8; Lymphocytes % 13.7; MCH 26.3 pg (27.0-33.0); MCV 87.7 fL (80-95); MPV 9.2 fL (8.0-11.0); Monocytes % 7.8; Neutrophils % 75.1; Nucleated RBC 0 %; Platelet Count 438 10^3/uL (130-400); RBC 2.43 10^6/uL (3.93-5.22); RDW 14.8 % (11.7-14.6); RDW-SD 48.3 fL; WBC 7.45 10^3/uL (4.4-10.8)
[2021-07-09 13:14] LABS: HGB 6.4 g/dL (11.2-15.7)
[2021-07-09 13:17] LABS: ALT 22 U/L (14-59); AST 16 U/L (15-37); Albumin 2.7 g/dL (3.4-5.0); Alkaline Phosphatase 102 U/L (46-116); Anion Gap 4.5 mmol/L (3-11); BUN 46 mg/dL (7-18); Bilirubin, Total 0.2 mg/dL (0.2-1.0); CO2 28.5 mmol/L (21.0-32.0); CREATININE 1.7 mg/dL (0.55-1.02); Calcium 8.3 mg/dL (8.5-10.1); Chloride 107 mmol/L (98-107); Estimated GFR 30.07 (mL/min/1.73m2); Glucose 86 mg/dL (74-106); Magnesium 2.1 mg/dL (1.8-2.4); Potassium 4.5 mmol/L (3.5-5.1); Sodium 140 mmol/L (136-145); Total Protein 5.9 g/dL (6.4-8.2)
[2021-07-09 13:21] LABS: Troponin I < 0.05 ng/mL (<0.06)
[2021-07-09 13:26] LABS: Diff Comment Diff Reviewed; Hypochromasia 2+; Poikilocytes 1+
[2021-07-09] MEDS: Normal Saline 1,000 ML 1000 ML IV (13:41)
[2021-07-09] MEDS: Normal Saline Flush 10 ML SYR IVP ×2 (13:41→20:52)
[2021-07-09 14:00] LABS: Bilirubin Negative (Negative); Blood Moderate (Negative); Clarity Clear (Clear); Glucose Negative (Negative); Ketones Negative (Negative); Leukocyte Esterase Small (Negative); Nitrite Negative (Negative); Specific Gravity 1.015 (1.005-1.025); Urobilinogen 0.2 EU/dL (Up TO 0.2)
--- NOTE | 2021-07-09 14:07 | DI.RAD_ITS ---
Exam(s) XR PORTABLE CHEST AP EXAM: XR PORTABLE CHEST AP CLINICAL HISTORY: syncope, r/o acute disease TECHNIQUE: 2D digital imaging was performed. COMPARISON: CT CT ABDOMEN PELVIS W from 03/24/[address] ABDOMEN PELVIS W from 03/24/2021 FINDINGS: The left diaphragm is again noted to be elevated. No visible infiltrates or effusions. Multiple kev ds overlie the chest. Sternal wires, scoliosis and degenerative changes are noted. Heart size is no rmal. IMPRESSION: Stable elevation of the left diaphragm. No acute pulmonary findings. DATA REPOSITORY: RADIATION DOSE DELIVERED:
[2021-07-09 14:12] LABS: Bacteria Many HPF (Negative); C & S Indicated? No/Sq. Contamination; Casts Negative LPF (Negative); Crystals Negative HPF (Negative); Epithelial Cells Many HPF (Negative); Mucus Negative (Negative); Other Cells Negative (Negative); WBC 20-50 HPF (0-5)
--- NOTE | 2021-07-09 14:46 | DI.VRAD_ITS ---
PROCEDURE INFORMATION: Exam: XR Chest Exam date and time: 07/09/2021 1:19 PM Age: 66 years old Clinical indication: Pain; On breathing; Patient HX: R/O acute disease. TECHNIQUE: Imaging protocol: XR of the chest. Views: 1 view. COMPARISON: CT ABDOMEN PELVIS W 03/24/2021 6:17 PM FINDINGS: Lungs: Redemonstration of elevated left hemidiaphragm with left basilar atelectasis. Possibility of underlying infiltrate is difficult to entirely exclude. Mild pulmonary vascular congestion and right basilar atelectasis. Pleural spaces: Unremarkable. No pleural effusion. No pneumothorax. Heart/Mediastinum: Cardiomediastinal countour within normal limits. Bones/joints: Median sternotomy wires. Degenerative changes of the thoracic spine. No acute osseous abnormality. IMPRESSION: Redemonstration of elevated left hemidiaphragm with left basilar atelectasis. Possibility of underlying infiltrate is difficult to entirely exclude. Mild pulmonary vascular congestion and right basilar atelectasis. Dictated and Authenticated by: Qiana Garcia MD. Ordering:GEORGE Avila MD
[2021-07-09 14:48] LABS: Source Nasal/Nares
[2021-07-09] MEDS: Pantoprazole 40 MG VIAL IVP (14:56)
--- NOTE | 2021-07-09 15:20 | HPE_ITS ---
Date of service: 07/09/21 Time of Service: 15:20 Assessment and Plan Assessment and plan (1) Constipation, chronic: Status: Acute Assessment and plan: Pt routinely digitally disimpacts her rectum. Narcotic bowel, as well as neurogenic. She does have episodes of vaso-vagal syncope with the disimpactions. Relastor x 1 now. Senna prn. She has little urge to defecate. (2) Peripheral neuropathy: Status: Acute Assessment and plan: Cont gabapentin (3) Chronic pain: Status: Chronic Assessment and plan: Cont Fentanyl patches. (4) Myasthenia gravis: Status: Chronic Assessment and plan: She endorses NOT taking her mestinon for appx 2 months. She states it had been placed on a shelf that she cannot reach (doesn't stand, is chair bound). Skeletal muscle weakness particularly of LE's. She endorses no respiratory symptoms; dyspnea, SOA. Restart mestinon. (5) Hyperlipidemia: Status: Chronic Assessment and plan: Not on any lipid lowering agents. (6) Hypertension: Status: Chronic Assessment and plan: Presented with hypotension. Now low normal. Hold Lisinopril/HCTZ (7) COPD (chronic obstructive pulmonary disease): Status: Chronic Assessment and plan: No pulmonary complaints or symptoms. Not on inhalers. (8) Chronic kidney disease: Status: Chronic Assessment and plan: Creatinine elevated over baselin of appx 1.0; now 1.7 Hold lisinopril/HCTZ. Receiving a unit of RBCs. Monitor. (9) Discharge planning issues: Status: Acute Assessment and plan: Pt is a DNR/DNI Palliative care pt. Care management; assist patient with home care vs placement options. (10) Blood loss anemia: Status: Acute Assessment and plan: Hgb of 6.4. MCV 87.7. Guaiac positive stool. Transfusion of 1 unit RBCs initiated in the ED. H/H following transfusion. Lasix 20mg IV after transfusion. Likely upper GI etiology. Pantoprazole 40mg IV daily initiated in the ED. Carafate 1 gram po BID. Monitor. (11) Weakness: Status: Acute Assessment and plan: Diffuse, but particularly noted in her LE's. Etiology: MG / not taking her prescribed mestinon and significant blood loss anemia. Work on correcting both. History of Present Illness History of Present Illness Chief Complaint: Syncope Narrative: This is a 66 yo female with a PMH of myesthenia gravis, spinal cord syrinx with decompression, chronic constipation / narcotic bowel, HTN, HLD, COPD, peripheral neuropathy, chronic renal insuff., gluten intolerance, chronic pain, migraine MUÑOZ, previous alcohol abuse and tobacco abuse syndromes, depression/anxiety. She presented to the ED after having a syncopal episode while performing a digital rectal disimpaction of stool (a procedure she performs regularly). She denied hitting her head. She feels like she is no longer capable of living at home and caring for herself. She had no CP or palpitations. No N/V/abd pain. No F/C. Upon arrival her BP was 82/49. It did improve with systolic readings in the 90- low 100s. No tachycardia. Rectal exam with brown stool that was guaic positive. Lytes normal. BUN 46. Creatinine 1.7 (1.1 on 03/24/21). Bili and LFTs normal. UA with mod blood, small leuk est, 5-10 RBCs. 20-50 WBCs. Many epithelia cells, many bacteria. Hgb 6.4 (13.0 on 03/24/21). WBC count normal. Platelets 438. CXR: Redemonstration of elevated left hemidiaphragm with left basilar atelectasis. Possibility of underlying infiltrate is difficult to entirely exclude. Mild pulmonary vascular congestion and right basilar atelectasis. Admit for telemetry monitoring, bowel regimen, care management to assist. Review of Systems All systems reviewed & are unremarkable except as noted in HPI and below [facility] Active Problem List DNI (do not intubate) (Acute) DNR (do not resuscitate) (Acute) POLST (Physician Orders for Life-Sustaining Treatment) (Acute) Constipation, chronic (Acute) Former smoker (Acute) Spinal stenosis (Acute) Urinary frequency (Acute) Frequent falls (Acute) Ataxia (Acute) Left hand weakness (Acute) Hypokalemia (Acute) Peripheral neuropathy (Acute) Arachnoid cyst (Acute) Chronic renal insufficiency (Acute) Dental caries (Acute) History of gluten intolerance (Acute) Bunion of unspecified foot (Acute) Blurred vision (Acute) Prediabetes (Acute) Pain (Acute) Chronic pain (Chronic) Weakness (Acute) Spasticity (Acute) Asymptomatic microscopic hematuria (Acute) Left arm weakness (Acute) Neuropathic pain of both legs (Chronic) Myasthenia gravis (Chronic) Migraine headache without aura (Chronic) GERD (gastroesophageal reflux disease) (Chronic) Syrinx of spinal cord (Chronic) Intracranial arachnoid cyst (Chronic) Hyperlipidemia (Chronic) Hypertension (Chronic) COPD (chronic obstructive pulmonary disease) (Chronic) Chronic kidney disease (Chronic) Insomnia (Chronic) Anxiety (Chronic) Depression (Chronic) Medical History History of lacunar cerebrovascular accident Urinary retention Surgical History H/O craniotomy ; L cerebellar arachnoid cyst drain with shunt placement H/O thymectomy 1980s S/P appendectomy S/P cystourethroscopy with dilation of urethral stricture S/P tonsillectomy Family History Mother Diabetes Father Neuropathy Back problem Brother Myasthenia gravis Social History Smoking/Tobacco Use Status: Former Tobacco Use Smoking risk assessment performed?: Yes Alcohol Intake: former Drug use: Never Details: Patient states that she has felt suicidal for a while now but it is worse. She states that she does not currently have a plan Household members: other Housing: halfway Number of Children: 0 Pets and animals: No What type of physical activity do you participate in: none Seatbelt use: always Do you feel safe at home: No Do you feel safe in your relationship?: Yes Additional Social history: She does not drive. Meds Allergies and Home Medications Allergies Allergy/AdvReac Type Severity Reaction Status Date / Time codeine Allergy Severe Verified 07/09/21 12:33 iodine Allergy Severe Verified 07/09/21 12:33 Penicillins Allergy Severe Anaphylaxsi Verified 07/09/21 12:33 s Sulfa (Sulfonamide Allergy Severe Swelling/Ed Verified 07/09/21 12:33 Antibiotics) kendal trazodone AdvReac Intermediate PER PT Verified 07/09/21 12:33 MAKES HER HEART RACE. Home Medications Medication Instructions Recorded Confirmed Type lisinopril-hydrochlorothiazide 1 tab-cap PO DAILY tab-cap 03/02/18 07/09/21 History [Zestoretic] potassium chloride [Klor-Con M20] 20 meq PO DAILY tab-cap 03/02/18 07/03/21 History gabapentin 300 mg capsule 300 mg PO DIRECTED #450 cap 04/14/20 07/03/21 Rx lidocaine-prilocaine 2.5 %-2.5 % 1 applic TP Q4H PRN #120 gm 04/14/20 07/03/21 Rx topical cream pyridostigmine bromide 180 mg 180 mg PO DAILY #90 tab-cap 04/14/20 07/09/21 Rx tablet,extended release aspirin 81 mg tablet 81 mg PO DAILY 11/12/20 07/09/21 History acetaminophen 500 mg tablet 1,000 mg PO TID PRN PRN #90 tab 03/13/21 07/09/21 Rx sennosides 8.6 mg tablet 8.6 mg PO BID PRN 04/16/21 07/09/21 History zolpidem 5 mg tablet 10 mg PO QHS PRN tab 04/16/21 07/09/21 History lidocaine 5 % topical patch 1 patch TOPICAL DAILY PRN #30 ea 05/25/21 07/09/21 Rx fentanyl 25 mcg/hr transdermal 1 patch TRANSDERMAL Q72H #10 ea 06/19/21 07/09/21 Rx patch MDD 37 mcg/hr fentanyl 12 mcg/hr transdermal 1 patch TRANSDERMAL Q72H #7 ea MDD 07/03/21 07/09/21 Rx patch 12 mcg/hr omeprazole 20 mg capsule,delayed 20 mg PO DAILY #30 cap 07/03/21 07/09/21 Rx release ondansetron 4 mg disintegrating 4 mg PO Q8H PRN #30 tab 07/03/21 07/09/21 Rx tablet Exam Const General: cooperative and no acute distress Nutritional Appearance: average body habitus Orientation: alert and oriented x3 HENMT Head: normocephalic Ears: hearing grossly normal bilaterally Mouth: moist mucous membranes abnormal (dry lips) Neck Neck: full ROM, no JVD and other (weak musculature) Resp Effort & Inspection: normal respiratory effort and able to speak in complete sentences Auscultation: clear to auscultation bilaterally Cardio Rate: regular rate Rhythm: regular rhythm Heart Sounds: S1 normal and S2 normal GI Palpation: soft and nontender Auscultation: normal bowel sounds Skin General skin exam: no rashes or lesions noted Neuro Cranial Nerves: facial strength normal Speech: other (Slightly slurred speech.) Motor: strength not 5/5 throughout (hip flexion is 3/5 bilateral.) Extrem General: no calf tenderness and pedal edema bilaterally non-pitting Psych Mental Status: mental status grossly normal Mood: congruent mood Affect: normal affect Results Labs Result diagrams: 07/09/21 12:55 07/09/21 12:55 Labs: Laboratory Results - last 24 hr 07/09/21 07/09/21 07/09/21 12:55 12:55 13:25 WBC 7.45 RBC 2.43 L Hgb 6.4 L* Hct 21.3 L MCV 87.7 MCH 26.3 L MCHC 30.0 L RDW 14.8 H Plt Count 438 H MPV 9.2 Immature Gran % 0.8 Neutrophils % 75.1 Lymphocytes % 13.7 Monocytes % 7.8 Eosinophils % 2.3 Basophils % 0.3 Nucleated RBC % 0 Absolute Neutrophils 5.60 Absolute Lymphocytes 1.02 L Absolute Monocytes 0.58 Absolute Eosinophils 0.17 Absolute Basophils 0.02 RBC Morphology See Below Hypochromasia 2+ Poikilocytosis 1+ Sodium 140 Potassium 4.5 Chloride 107 Carbon Dioxide 28.5 Anion Gap 4.5 BUN 46 H Creatinine 1.7 H Estimated GFR/1.73 m2 30.07 Glucose 86 Calcium 8.3 L Magnesium 2.1 Total Bilirubin 0.2 AST 16 ALT 22 Alkaline Phosphatase 102 Troponin I < 0.05 Total Protein 5.9 L Albumin 2.7 L Urine Color Urine Clarity Urine pH Ur Specific Speculator Urine Protein Urine Ketones Urine Blood Urine Nitrite Urine Bilirubin Urine Urobilinogen Ur Leukocyte Esterase Urine RBC Urine WBC Ur Epithelial Cells Urine Crystals Urine Bacteria Urine Casts Urine Mucus Urine Other Ur Culture Indicated? Urine Glucose COVID-19 Source Patient ABO/Rh O Positive Antibody Screen NEGATIVE Crossmatch See Detail 07/09/21 07/09/21 13:55 14:42 WBC RBC Hgb Hct MCV MCH MCHC RDW Plt Count MPV Immature Gran % Neutrophils % Lymphocytes % Monocytes % Eosinophils % Basophils % Nucleated RBC % Absolute Neutrophils Absolute Lymphocytes Absolute Monocytes Absolute Eosinophils Absolute Basophils RBC Morphology Hypochromasia Poikilocytosis Sodium Potassium Chloride Carbon Dioxide Anion Gap BUN Creatinine Estimated GFR/1.73 m2 Glucose Calcium Magnesium Total Bilirubin AST ALT Alkaline Phosphatase Troponin I Total Protein Albumin Urine Color Yellow Urine Clarity Clear Urine pH 6.0 Ur Specific Speculator 1.015 Urine Protein Negative Urine Ketones Negative Urine Blood Moderate H Urine Nitrite Negative Urine Bilirubin Negative Urine Urobilinogen 0.2 Ur Leukocyte Esterase Small H Urine RBC 5-10 H Urine WBC 20-50 H Ur Epithelial Cells Many Urine Crystals Negative Urine Bacteria Many Urine Casts Negative Urine Mucus Negative Urine Other Negative Ur Culture Indicated? No/Sq. Contamination Urine Glucose Negative COVID-19 Source Nasal/Nares Patient ABO/Rh Antibody Screen Crossmatch Last Vital Signs Temp 36.5 C 07/09/21 14:57 Pulse 90 07/09/21 14:57 Resp 15 07/09/21 14:57 BP 110/59 L 07/09/21 14:57 Pulse Ox 97 07/09/21 14:57
[2021-07-09] MEDS: Furosemide 20 MG/2 ML VIAL IVP (16:06)
[2021-07-09] MEDS: Methylnaltrexone 12 MG/0.6 ML VIAL 8 MG SC (16:06)
[2021-07-09] MEDS: fentaNYL 12 MCG PATCH TD (16:40)
[2021-07-09] MEDS: fentaNYL 25 MCG PATCH TD (16:42)
[2021-07-09 16:57] LABS: COVID-19 PCR Negative (Negative)
[2021-07-09 16:58] LABS: Iron 13 ug/dL (50-170); Total Iron Binding Capacity 320 ug/dL (250-450); Transferrin Sat 4 % (15-50)
[2021-07-09 17:06] LABS: NT-proBNP 187 pg/mL (<300)
[2021-07-09 19:34] LABS: HCT 26.3 % (36.0-46.0); HGB 8.1 g/dL (11.2-15.7)
[2021-07-09 19:44] LABS: INR 1.1 (0.9-1.1); Prothrombin Time 10.7 sec (9.3-11.0)
[2021-07-09] MEDS: Gabapentin 300 MG CAP 600 MG PO (20:52)
[2021-07-09] MEDS: Sucralfate 1 GM TAB PO (20:52)
[2021-07-09] MEDS: Zolpidem 10 MG TAB PO (21:17)
[2021-07-10] VITALS (20 sets, daily range): BP systolic 80–115; BP diastolic 40–76; PULSE 92–110; RESP 12–18; TEMP 35.9–37.6; O2SAT 82–100
[2021-07-10 06:56] LABS: HCT 23.1 % (36.0-46.0); HGB 7.4 g/dL (11.2-15.7); MCH 26.5 pg (27.0-33.0); MCV 82.8 fL (80-95); Platelet Count 444 10^3/uL (130-400); RBC 2.79 10^6/uL (3.93-5.22); RDW 14.6 % (11.7-14.6); RDW-SD 43.8 fL; WBC 8.73 10^3/uL (4.4-10.8)
[2021-07-10 07:17] LABS: BUN 37 mg/dL (7-18); CREATININE 1.3 mg/dL (0.55-1.02); Calcium 8.5 mg/dL (8.5-10.1); Chloride 106 mmol/L (98-107); Estimated GFR 40.98 (mL/min/1.73m2); Glucose 89 mg/dL (74-106); Potassium 4.6 mmol/L (3.5-5.1); Sodium 140 mmol/L (136-145)
[2021-07-10 07:19] LABS: Prothrombin Time 10.5 sec (9.3-11.0)
[2021-07-10] MEDS: Sucralfate 1 GM TAB PO ×2 (07:37→19:39)
[2021-07-10] MEDS: Gabapentin 300 MG CAP 600 MG PO ×2 (07:37→19:39)
[2021-07-10] MEDS: Senna TAB 2 TAB PO (07:37)
[2021-07-10] MEDS: Potassium Chloride 20 MEQ TABCR PO (07:37)
[2021-07-10] MEDS: Normal Saline Flush 10 ML SYR IVP ×2 (07:39→19:45)
[2021-07-10] MEDS: Pantoprazole 40 MG VIAL IVP (07:39)
--- NOTE | 2021-07-10 07:59 | INITIAL_ITS ---
- If Service Date Differs Date of service: 07/10/21 Time of Service: 07:59 Care Management Initial Assess REASON FOR HOSPITALIZATION:: Blood loss anemia PAST MEDICAL HISTORY/PAST SURGICAL HISTORY:: Active Problem List . DNI (do not intubate) (Acute). DNR (do not resuscitate) (Acute). POLST (Physician Orders for Life-Sustaining Treatment) (Acute). Constipation, chronic (Acute). Former smoker (Acute). Spinal stenosis (Acute). Urinary frequency (Acute). Frequent falls (Acute). Ataxia (Acute). Left hand weakness (Acute). Hypokalemia (Acute). Peripheral neuropathy (Acute). Arachnoid cyst (Acute). Chronic renal insufficiency (Acute). Dental caries (Acute). History of gluten intolerance (Acute). Bunion of unspecified foot (Acute). Blurred vision (Acute). Prediabetes (Acute). Pain (Acute). Chronic pain (Chronic). Weakness (Acute). Spasticity (Acute). Asymptomatic microscopic hematuria (Acute). Left arm weakness (Acute). Neuropathic pain of both legs (Chronic). Myasthenia gravis (Chronic). Migraine headache without aura (Chronic). GERD (gastroesophageal reflux disease) (Chronic). Syrinx of spinal cord (Chronic). Intracranial arachnoid cyst (Chronic). Hyperlipidemia (Chronic). Hypertension (Chronic). COPD (chronic obstructive pulmonary disease) (Chronic). Chronic kidney disease (Chronic). Insomnia (Chronic). Anxiety (Chronic). Depression (Chronic). Medical History . History of lacunar cerebrovascular accident. Urinary retention. Surgical History . H/O craniotomy. ; L cerebellar arachnoid cyst drain with shunt placement. H/O thymectomy. . S/P appendectomy. S/P cystourethroscopy with dilation of urethral stricture. S/P tonsillectomy PREVIOUS FUNCTIONAL STATUS/SOCIAL/FAMILY SUPPORTS:: Missy lives alone in an apartment in the [facility].She does not have any family in the area and only communicates with her [id number] in [place]. Missy has myasthenia gravis and requires assistance. At baseline she is able to transfer bed to chair/wheelchair and commode and back. She can also transfer into her shower independently although all of these are becoming more challenging. Missy has [employer] moderate needs and has a friend Nina Trinidad who has been helping her and is paid through that program. CURRENT FUNCTIONAL STATUS:: Missy was sitting up in bed when CM met with her. She appeared pale and fatigued and admitted she was tired. Missy was open to conversation and talked freely about her diagnosis and concerns about her ability to continue to live independently. She has few close relationships and has been a very private person much of her life. She discussed the possibility of going to rehab or assisted living but, again, is reluctant to give up her privacy and independence. Missy shared that she understands that some changes may need to be made but that she has not decided what that will look like. Increasing support in the home is also possible and may be what she decides for the time being. Missy's PCP Prashanth Thayer contacted CM today to discuss her situsation. She was pleased to learn that Missy is at least considering an alternate living situation as she feels she needs more help. ADVANCE DIRECTIVES:: [employer] on file. [id number] Niharika Kim listed as [facility] on [employer] form Has patient been provided with info about the portal/API?: Yes Did the patient sign up for the portal?: No CODE STATUS:: DNR/DNI INSURANCE COVERAGE / FINANCIAL ISSUES:: Medicare CURRENT HOME/COMMUNITY SERVICES/EQUIPMENT:: Missy has [employer] moderate needs. She has a caregiver who assists with migratory game bird biologist and receives Meals on Wheels. Missy has a wheelchair and a shower chair which she is able to transfer independently in and out of. PRIMARY CARE PHYSICIAN:: Prashanth Thayer POTENTIAL DISCHARGE NEEDS:: Follow up with PCP if discharged home PATIENT/FAMILY EDUCATION NEEDS:: Expectations, limitations, activity, review of discharge instructions, Ask Me Three TRANSPORTATION:: to be determined by disposition PLAN:: Missy may need to transfer to a SNF for short or terminal make up operator placement. She will follow up with the facility providers and plan of care. Transportation will be determined by disposition. CM will continue to support and assess for discharge needs.
--- NOTE | 2021-07-10 13:56 | W.PM.PROGNOT ---
Date of Service Date of service: 07/10/21 Time of Service: 13:56 Assessment and Plan Assessment and plan (1) Constipation, chronic: Status: Acute Assessment and plan: Pt routinely digitally disimpacts her rectum. Narcotic bowel, as well as neurogenic. She does have episodes of vaso-vagal syncope with the disimpactions. Relastor x 1 given w/o results. Senna prn. She has little urge to defecate. Relastor 12 mg now. If not effective, will consider neostigmine. (2) Peripheral neuropathy: Status: Acute Assessment and plan: Cont gabapentin (3) Chronic pain: Status: Chronic Assessment and plan: Cont Fentanyl patches. (4) Myasthenia gravis: Status: Chronic Assessment and plan: She endorses NOT taking her mestinon for appx 2 months. She states it had been placed on a shelf that she cannot reach (doesn't stand, is chair bound). Skeletal muscle weakness particularly of LE's. She endorses no respiratory symptoms; dyspnea, SOA. Restart mestinon. (5) Hyperlipidemia: Status: Chronic Assessment and plan: Not on any lipid lowering agents. (6) Hypertension: Status: Chronic Assessment and plan: Presented with hypotension. Now low normal. Hold Lisinopril/HCTZ (7) COPD (chronic obstructive pulmonary disease): Status: Chronic Assessment and plan: No pulmonary complaints or symptoms. Not on inhalers. (8) Chronic kidney disease: Status: Chronic Assessment and plan: Creatinine elevated over baselin of appx 1.0; 1.7 on admission. Now 1.3. Hold lisinopril/HCTZ. Receiving a second unit of RBCs. Monitor. (9) Discharge planning issues: Status: Acute Assessment and plan: Pt is a DNR/DNI Palliative care pt. Care management; assist patient with home care vs placement options. (10) Blood loss anemia: Status: Acute Assessment and plan: Hgb of 6.4. MCV 87.7. Guaiac positive stool. Transfusion of 1 unit RBCs initiated in the ED. Hgb increased to 7.4. Lasix 20mg IV given after transfusion. Repeat transfusion of 1 unit RBCs. Likely upper GI etiology. Pantoprazole 40mg IV daily initiated in the ED. Carafate 1 gram po BID. Monitor. (11) Weakness: Status: Acute Assessment and plan: Diffuse, but particularly noted in her LE's. Etiology: MG / not taking her prescribed mestinon and significant blood loss anemia. Work on correcting both. Subjective Subjective Patient reports: afebrile; denies nausea, vomiting and shortness of breath Exam Const General: cooperative and no acute distress Nutritional Appearance: average body habitus Orientation: alert and oriented x3 HENMT Head: normocephalic Ears: hearing grossly normal bilaterally Mouth: moist mucous membranes abnormal (dry lips) Neck Neck: full ROM, no JVD and other (weak musculature) Resp Effort & Inspection: normal respiratory effort and able to speak in complete sentences Auscultation: clear to auscultation bilaterally Cardio Rate: regular rate Rhythm: regular rhythm Heart Sounds: S1 normal and S2 normal GI Palpation: soft and nontender Auscultation: normal bowel sounds Skin General skin exam: no rashes or lesions noted Neuro Cranial Nerves: facial strength normal Speech: other (Slightly slurred speech.) Motor: strength not 5/5 throughout (hip flexion is 3/5 bilateral.) Extrem General: no calf tenderness and pedal edema bilaterally non-pitting Psych Mental Status: mental status grossly normal Mood: congruent mood Affect: normal affect Objective Last Vital Signs Temp 37.1 C 07/10/21 13:12 Pulse 102 H 07/10/21 13:12 Resp 16 07/10/21 13:12 BP 111/75 07/10/21 13:12 Pulse Ox 99 07/10/21 13:12 Laboratory Results - last 24 hr 07/09/21 07/09/21 07/09/21 12:55 12:55 13:25 WBC RBC Hgb Hct MCV MCH MCHC RDW Plt Count MPV PT INR Sodium Potassium Chloride Carbon Dioxide Anion Gap BUN Creatinine Estimated GFR/1.73 m2 Glucose Calcium Iron 13 L TIBC 320 Transferrin % Sat 4 L NT-Pro-B Natriuret Pep 187 Urine Color Urine Clarity Urine pH Ur Specific [place] Urine Protein Urine Ketones Urine Blood Urine Nitrite Urine Bilirubin Urine Urobilinogen Ur Leukocyte Esterase Urine RBC Urine WBC Ur Epithelial Cells Urine Crystals Urine Bacteria Urine Casts Urine Mucus Urine Other Ur Culture Indicated? Urine Glucose COVID-19 Source SARS-CoV-2 (PCR) Patient ABO/Rh O Positive Antibody Screen NEGATIVE Crossmatch See Detail 07/09/21 07/09/21 07/09/21 13:55 14:42 19:22 WBC RBC Hgb 8.1 L Hct 26.3 L D MCV MCH MCHC RDW Plt Count MPV PT INR Sodium Potassium Chloride Carbon Dioxide Anion Gap BUN Creatinine Estimated GFR/1.73 m2 Glucose Calcium Iron TIBC Transferrin % Sat NT-Pro-B Natriuret Pep Urine Color Yellow Urine Clarity Clear Urine pH 6.0 Ur Specific [place] 1.015 Urine Protein Negative Urine Ketones Negative Urine Blood Moderate H Urine Nitrite Negative Urine Bilirubin Negative Urine Urobilinogen 0.2 Ur Leukocyte Esterase Small H Urine RBC 5-10 H Urine WBC 20-50 H Ur Epithelial Cells Many Urine Crystals Negative Urine Bacteria Many Urine Casts Negative Urine Mucus Negative Urine Other Negative Ur Culture Indicated? No/Sq. Contamination Urine Glucose Negative COVID-19 Source Nasal/Nares SARS-CoV-2 (PCR) Negative Patient ABO/Rh Antibody Screen Crossmatch 07/09/21 07/10/21 07/10/21 19:22 06:25 06:25 WBC 8.73 RBC 2.79 L Hgb 7.4 L Hct 23.1 L MCV 82.8 D MCH 26.5 L MCHC 32.0 RDW 14.6 Plt Count 444 H MPV 9.0 PT 10.7 INR 1.1 Sodium 140 Potassium 4.6 Chloride 106 Carbon Dioxide 27.0 Anion Gap 7.0 BUN 37 H D Creatinine 1.3 H Estimated GFR/1.73 m2 40.98 Glucose 89 Calcium 8.5 Iron TIBC Transferrin % Sat NT-Pro-B Natriuret Pep Urine Color Urine Clarity Urine pH Ur Specific [place] Urine Protein Urine Ketones Urine Blood Urine Nitrite Urine Bilirubin Urine Urobilinogen Ur Leukocyte Esterase Urine RBC Urine WBC Ur Epithelial Cells Urine Crystals Urine Bacteria Urine Casts Urine Mucus Urine Other Ur Culture Indicated? Urine Glucose COVID-19 Source SARS-CoV-2 (PCR) Patient ABO/Rh Antibody Screen Crossmatch 07/10/21 06:25 WBC RBC Hgb Hct MCV MCH MCHC RDW Plt Count MPV PT 10.5 INR 1.0 Sodium Potassium Chloride Carbon Dioxide Anion Gap BUN Creatinine Estimated GFR/1.73 m2 Glucose Calcium Iron TIBC Transferrin % Sat NT-Pro-B Natriuret Pep Urine Color Urine Clarity Urine pH Ur Specific [place] Urine Protein Urine Ketones Urine Blood Urine Nitrite Urine Bilirubin Urine Urobilinogen Ur Leukocyte Esterase Urine RBC Urine WBC Ur Epithelial Cells Urine Crystals Urine Bacteria Urine Casts Urine Mucus Urine Other Ur Culture Indicated? Urine Glucose COVID-19 Source SARS-CoV-2 (PCR) Patient ABO/Rh Antibody Screen Crossmatch
[2021-07-10] MEDS: Gabapentin 300 MG CAP PO (14:06)
[2021-07-10] MEDS: Methylnaltrexone 12 MG/0.6 ML VIAL SC (14:52)
[2021-07-10 16:42] LABS: HCT 25.9 % (36.0-46.0); HGB 8.1 g/dL (11.2-15.7)
[2021-07-10] MEDS: Acetaminophen 325 MG TAB 650 MG PO (19:39)
[2021-07-10] MEDS: Senna TAB 1 TAB PO (19:39)
[2021-07-10] MEDS: Zolpidem 10 MG TAB PO (21:12)
[2021-07-11] VITALS (11 sets, daily range): BP systolic 95–121; BP diastolic 63–82; PULSE 77–94; RESP 14–18; TEMP 35.7–36.8; O2SAT 89–98
[2021-07-11] MEDS: Normal Saline 500 ML IV (00:34)
[2021-07-11] MEDS: Normal Saline Flush 10 ML SYR IVP ×3 (00:35→20:33)
[2021-07-11] MEDS: Normal Saline 1,000 ML 100 ML IV ×2 (01:39→11:29)
[2021-07-11] MEDS: Senna TAB 2 TAB PO (07:16)
[2021-07-11] MEDS: Gabapentin 300 MG CAP 600 MG PO ×2 (07:16→20:34)
[2021-07-11] MEDS: Sucralfate 1 GM TAB PO ×2 (07:17→21:31)
[2021-07-11] MEDS: Potassium Chloride 20 MEQ TABCR PO (07:17)
[2021-07-11] MEDS: Acetaminophen 325 MG TAB 650 MG PO ×2 (07:27→20:33)
[2021-07-11 08:07] LABS: Abs Immature Grans 0.02 10^3/uL (0.0-0.06); Absolute Basophil Count 0.02 10^3/uL (0.0-0.2); Absolute Eosinophil Count 0.21 10^3/uL (0.0-0.7); Absolute Lymphocyte Count 1.08 10^3/uL (1.2-3.4); Absolute Monocyte Count 0.68 10^3/uL (0.1-0.8); Basophils % 0.4; Eosinophils % 3.9; HCT 25.5 % (36.0-46.0); Immature Grans % 0.4; Lymphocytes % 19.8; MCH 25.7 pg (27.0-33.0); MCHC 31.4 % (32.0-36.0); MPV 9.1 fL (8.0-11.0); Monocytes % 12.5; Nucleated RBC 0 %; Platelet Count 387 10^3/uL (130-400); RBC 3.11 10^6/uL (3.93-5.22); RDW 15.1 % (11.7-14.6); RDW-SD 45.4 fL; WBC 5.45 10^3/uL (4.4-10.8)
[2021-07-11] MEDS: Pantoprazole 40 MG VIAL IVP (08:12)
[2021-07-11 08:23] LABS: Absolute Neutrophil Count 3.43 10^3/uL (1.2-6.7)
--- NOTE | 2021-07-11 11:26 | PT.INIE ---
Date of service: 07/11/21 Time of Service: 11:05 PT Notes Visit Reasons: Blood Loss Anemia Inpatient Physical Therapy Evaluation Date: 07/11/21 Referring Doctor: Jeff Hsieh PT Orders: PT CONSULT: Evaluate and Treat Precautions: Standard Patient Profile/Admitting Diagnosis: Orders received for this 66-year-old female with a history of myasthenia gravis, spinal cord decompression, and a host of multiple other health ailments. Patient states that she is nonambulatory at baseline and was performing a digital rectal disimpaction which is a regular occurrence for chronic constipation. Apparently during this episode of care she was having some dizziness and ended up passing out. She was taking the emergency department with a sudden episode of syncope PMHX: [facility] Active Problem List DNI (do not intubate) (Acute) DNR (do not resuscitate) (Acute) POLST (Physician Orders for Life-Sustaining Treatment) (Acute) Constipation, chronic (Acute) Former smoker (Acute) Spinal stenosis (Acute) Urinary frequency (Acute) Frequent falls (Acute) Ataxia (Acute) Left hand weakness (Acute) Hypokalemia (Acute) Peripheral neuropathy (Acute) Arachnoid cyst (Acute) Chronic renal insufficiency (Acute) Dental caries (Acute) History of gluten intolerance (Acute) Bunion of unspecified foot (Acute) Blurred vision (Acute) Prediabetes (Acute) Pain (Acute) Chronic pain (Chronic) Weakness (Acute) Spasticity (Acute) Asymptomatic microscopic hematuria (Acute) Left arm weakness (Acute) Neuropathic pain of both legs (Chronic) Myasthenia gravis (Chronic) Migraine headache without aura (Chronic) GERD (gastroesophageal reflux disease) (Chronic) Syrinx of spinal cord (Chronic) Intracranial arachnoid cyst (Chronic) Hyperlipidemia (Chronic) Hypertension (Chronic) COPD (chronic obstructive pulmonary disease) (Chronic) Chronic kidney disease (Chronic) Insomnia (Chronic) Anxiety (Chronic) Depression (Chronic) Medical History History of lacunar cerebrovascular accident Urinary retention Surgical History H/O craniotomy 1980s; L cerebellar arachnoid cyst drain with shunt placement H/O thymectomy 1980s S/P appendectomy S/P cystourethroscopy with dilation of urethral stricture S/P tonsillectomy Social History/Home Situation: Patient lives at home alone. She has a wheel chair and has previously lived independently with some help from family and friends Equipment Owned/DME: Wheelchair Subjective: Patient states that she has not been able to walk and is only making minor attempts at standing for some of her personal care and ADLs. She states this is getting more difficult as of late Objective: Patient lying in bed with head of bed to 30 degrees she has IV line in place in the right upper extremity Mental Status: Well oriented alert to person place and time Pain: 0/10 ROM: Right Upper Extremity: WFL Left Upper Extremity: WFL Right Lower Extremity: Patient has hip flexion to 90 degrees, knee extension to 0, knee flexion to 110, ankle ROM WFL Left Lower Extremity: Patient has hip flexion to 90 degrees, knee extension to 0, knee flexion to 110, ankle ROM WFL Strength: Right Upper Extremity: Grossly 4+ out of 5 Left Upper Extremity: Grossly 4+ out of 5 Right Lower Extremity: Hip flexion 3+ out of 5, quadriceps 3+ out of 5, hamstrings 3+ out of 5, ankle dorsiflexion 3+ out of 5, ankle plantarflexion 3+ out of 5 Left Lower Extremity: Hip flexion 3+ out of 5, quadriceps 3+ out of 5, hamstrings 3+ out of 5, ankle dorsiflexion 3+ out of 5, ankle plantarflexion 3+ out of 5 Bed Mobility/Transfers: Moderate assistance Supine-sit: Moderate assistance Sit-stand: Not attempted Stand-sit: Not attempted Gait: Not attempted Assistance-- Distance-- Device-- Balance: Static Sitting: Good Dynamic Sitting: Fair Static Standing:Poor Dynamic Standing: Poor Special Tests: Mobility Limitations Standardized Measure [facility] AM-PAC 6 clicks Basic Mobility Inpatient Short Form: Raw Score: 11 Standardized Score: 33.86 CMS Score: 72.57% TherEX, patient trained the following exercises including ankle pumps, glutes sets, hip flexion in supine, shoulder flexion in supine Informed Consent/Education: Patient instructed in purpose of PT consult and plan of care. ASSESSMENT: Patient is a 66-year-old female with a history of health conditions affecting function Admitted with recent syncope Patient presents with the following impairment level findings: Ambulation tolerance and inability, assistance needed for all transfers, strength deficits to the lower extremities Pt will benefit from skilled therapy intervention in order to remedy their functional limitations and restore patient to a more appropriate and stable functional level. Impairments are contributing to the following functional limitations: AMPAC score 72.57 Patient is assessed as a High COmplexity Initial evaluation 25031 based on the following: History: see above Examination: see above Presentation: Unstable Decision Making:High based on AMPAC of 72.57% Goals: Goals X1 week 1. Supine-Sit CGA 2. Sit-Supine CGA 3. Sit-Stand Min A 4. Stand-Sit Min A 5. Bed-Chair Moderate A Plan of Care/Treatment Plan: 1-2x/day, 7 days/week x 1 week. Plan of care has been reviewed with the PLASTER [employer]ER providing the service under Physical Therapy direction. Initiate Physical Therapy intervention for strengthening, bed mobility, transfers, gait, stairs, balance training, use of assistive device. DISCHARGE RECOMMENDATIONS: ( ) Home with no services ( ) Home with services [specify] ( ) Home with outpatient PT ( X ) SNF for continued rehabilitation ( ) [facility] Care ( ) SNF versus LTC based on ability to participate and progress TREATMENT CODE/TIME: High complexity initial evaluation [id number] 15 minutes Taqueria Bauman DPT
[2021-07-11] MEDS: Gabapentin 300 MG CAP PO (14:39)
--- NOTE | 2021-07-11 16:23 | W.PM.PROGNOT ---
Date of Service Date of service: 07/11/21 Time of Service: 16:23 Assessment and Plan Assessment and plan (1) Blood loss anemia: Status: Acute Assessment and plan: Heme positive stools with a chronic microcytic anemia. Patient presented with hemoglobin 6.4 g and was transfused 1 unit of packed red cells in the emergency department and received another unit of packed cells yesterday. Hemoglobin is up to 8.0 today. Protonix been changed to 40 mg twice daily and Carafate's been increased to 1 g before meals and at bedtime. She has an iron deficiency anemia. Because of her chronic constipation I do not feel that she would tolerate oral iron supplementation. I will start her on venofer 300 mg daily for 3 days. Monitor daily blood count. I will consult with general surgery tomorrow to discuss timing for upper or lower endoscopy. (2) Weakness: Status: Acute Assessment and plan: Multifactorial including her myasthenia gravis and her neurologic disability from her syringomyelia. Probably acutely exacerbated by her severe anemia. We will consult with physical therapy to evaluate and initiate treatment.. (3) Myasthenia gravis: Status: Chronic Assessment and plan: She endorses NOT taking her mestinon for appx 2 months. She states it had been placed on a shelf that she cannot reach (doesn't stand, is chair bound). Skeletal muscle weakness particularly of LE's. She endorses no respiratory symptoms; dyspnea, SOA. Restart mestinon. Patient now tells me that she just quit taking her Mestinon because she did not feel it was doing her any good she saw no difference in her weakness. (4) Protein malnutrition: Status: Acute Assessment and plan: Poor oral intake with low Total protein and albumin levels of 5.9 and 2.7 respectively. We will check her B12 and folate and thiamine levels. Iron levels are low and will be corrected. We will ask for nutritional consult and start her on protein supplements 3 times daily. (5) Constipation, chronic: Status: Acute Assessment and plan: Patient reportedly had a large bowel movement today. I put her on scheduled dose of MiraLAX and docusate and senna. I have asked nursing to check her for impaction every 3 days if she has no bowel movement. We will continue digital rectal disimpaction and enemas on a as needed basis. (6) Peripheral neuropathy: Status: Acute Assessment and plan: Cont gabapentin (7) Chronic pain: Status: Chronic Assessment and plan: Cont Fentanyl patches. (8) Hypertension: Status: Chronic Assessment and plan: Presented with hypotension. Now low normal. Hold Lisinopril/HCTZ (9) COPD (chronic obstructive pulmonary disease): Status: Chronic Assessment and plan: No pulmonary complaints or symptoms. Not on inhalers. (10) Chronic kidney disease: Status: Chronic Assessment and plan: Creatinine elevated over baselin of appx 1.0; 1.7 on admission. Now 1.3. Hold lisinopril/HCTZ. Monitor. (11) Hyperlipidemia: Status: Chronic Assessment and plan: Not on any lipid lowering agents. (12) Discharge planning issues: Status: Acute Assessment and plan: Pt is a DNR/DNI Palliative care pt. Care management; assist patient with home care vs placement options. Subjective Subjective Interval history since last seen: 66-year-old patient with a history of syringomyelia status post decompression laminectomy, myasthenia gravis, peripheral neuropathy who has had progressive weakness. Patient admits she has not been taken her Mestinon for about 2 months. Patient reported to the admitting hospitalist that her Mestinon has been placed on a shelf where she cannot reach it. Patient is wheelchair-bound due to bilateral lower extremity weakness. However she admits to me that she just quit taking it because she did not feel like it was doing her any good. She has chronic constipation for which she digitally disimpacted herself on a as needed basis. Her chronic constipation is presumably due to chronic narcotic use as well as neurogenic basis. She has been receiving senna and Relistor with no effect yesterday however today she had a good BM. She is also being treated for chronic anemia presumably due to chronic blood loss. She presented with a hemoglobin 6.4 and MCV of 87 and has guaiac positive stools. She was transfused 1 unit of packed red cells in the emergency department and her hemoglobin came up to 7.4 g. Today her hemoglobin is up to 8.0 g. Stool was not checked for occult blood today after her BM. She has been receiving Protonix 40 mg IV daily. I am switching this over to Protonix 40 mg p.o. twice daily. She is on Carafate 1 g twice daily which I have increased before meals and at bedtime. Patient is going to need upper and lower endoscopy if she is willing to proceed with the same. I will discuss it further with her tomorrow I did not bring this up today. If she is willing to consider upper and lower endoscopy I will consult with surgery tomorrow. Exam Narrative Exam Narrative: Cachectic appearing elderly white female who appears to be older than her stated age of 66. HEENT is remarkable for conjunctival pallor. Neck is supple no JVD normal carotid pulses Lungs are clear to auscultation Heart is regular rate and rhythm Abdomen is soft nondistended normal active bowel sounds no palpable masses no bruits Extremities patient has muscle wasting particularly of her left hand with decreased hand traffic control flagger strength in her left hand compared to her right she is able to hold both arms up against gravity as well as against light resistance. Lower extremities are weaker bilaterally although she is able to perform dorsiflexion plantarflexion her ankles against some resistance. We try to get her to perform hip flexion extension she was weaker although she was able to lift her leg up off the bed against gravity. Objective Last Vital Signs Temp 36.2 C L 07/11/21 15:41 Pulse 82 07/11/21 15:41 Resp 16 07/11/21 15:41 BP 121/82 07/11/21 15:41 Pulse Ox 97 07/11/21 15:41 Laboratory Results - last 24 hr 07/10/21 07/11/21 16:20 07:45 WBC 5.45 D RBC 3.11 L Hgb 8.1 L 8.0 L Hct 25.9 L 25.5 L MCV 82.0 MCH 25.7 L MCHC 31.4 L RDW 15.1 H Plt Count 387 MPV 9.1 Immature Gran % 0.4 Neutrophils % 63.0 Lymphocytes % 19.8 Monocytes % 12.5 Eosinophils % 3.9 Basophils % 0.4 Nucleated RBC % 0 Absolute Neutrophils 3.43 Absolute Lymphocytes 1.08 L Absolute Monocytes 0.68 Absolute Eosinophils 0.21 Absolute Basophils 0.02
[2021-07-11] MEDS: Protein Nutritional Supplement 16 GM 1 OUNCE PACKET PO (20:33)
[2021-07-11] MEDS: Docusate Sodium 100 MG/10 ML CUP PO (20:34)
[2021-07-11] MEDS: Pantoprazole 40 MG TABCR PO (20:34)
[2021-07-11] MEDS: Zolpidem 10 MG TAB PO (21:32)
[2021-07-12 04:45] VITALS: BP 123/87; PULSE 84; RESP 16; TEMP 36.4; O2SAT 92
[2021-07-12 07:28] LABS: Abs Immature Grans 0.03 10^3/uL (0.0-0.06); Absolute Basophil Count 0.02 10^3/uL (0.0-0.2); Absolute Eosinophil Count 0.21 10^3/uL (0.0-0.7); Absolute Lymphocyte Count 1.06 10^3/uL (1.2-3.4); Absolute Monocyte Count 0.64 10^3/uL (0.1-0.8); Absolute Neutrophil Count 3.29 10^3/uL (1.2-6.7); Basophils % 0.4; HCT 25.8 % (36.0-46.0); HGB 8.4 g/dL (11.2-15.7); Immature Grans % 0.6; Lymphocytes % 20.2; MCH 26.8 pg (27.0-33.0); MCHC 32.6 % (32.0-36.0); MCV 82.4 fL (80-95); MPV 9.3 fL (8.0-11.0); Monocytes % 12.2; Neutrophils % 62.6; Nucleated RBC 0 %; Platelet Count 409 10^3/uL (130-400); RBC 3.13 10^6/uL (3.93-5.22); RDW-SD 45.1 fL; WBC 5.25 10^3/uL (4.4-10.8)
[2021-07-12 07:46] VITALS: BP 121/81; PULSE 89; RESP 19; TEMP 36.2; O2SAT 95
[2021-07-12] MEDS: Docusate Sodium 100 MG/10 ML CUP PO ×2 (08:20→20:49)
[2021-07-12] MEDS: Sucralfate 1 GM TAB PO ×4 (08:21→22:21)
[2021-07-12] MEDS: Potassium Chloride 20 MEQ TABCR PO (08:21)
[2021-07-12] MEDS: Pantoprazole 40 MG TABCR PO ×2 (08:21→20:49)
[2021-07-12] MEDS: Protein Nutritional Supplement 16 GM 1 OUNCE PACKET PO ×3 (08:21→20:48)
[2021-07-12] MEDS: Polyethylene Glycol 3350 17 GM PACKET PO (08:21)
[2021-07-12] MEDS: Senna TAB 2 TAB PO (08:22)
[2021-07-12] MEDS: Gabapentin 300 MG CAP 600 MG PO ×2 (08:22→20:49)
[2021-07-12 08:23] LABS: Folate 5.6 ng/mL (8.6-20.0); Vitamin B12 441 pg/mL (193-986)
[2021-07-12 08:24] LABS: BUN 28 mg/dL (7-18); Calcium 8.5 mg/dL (8.5-10.1); Estimated GFR 55.47 (mL/min/1.73m2); Glucose 80 mg/dL (74-106); Sodium 138 mmol/L (136-145)
[2021-07-12 08:25] LABS: Anion Gap 4.9 mmol/L (3-11); CO2 28.1 mmol/L (21.0-32.0); Chloride 105 mmol/L (98-107)
[2021-07-12 08:30] VITALS: PULSE 81
[2021-07-12 09:14] VITALS: PULSE 95
[2021-07-12] MEDS: Normal Saline Flush 10 ML SYR IVP (09:21)
[2021-07-12] MEDS: Normal Saline 500 ML 30 ML IV (09:21)
[2021-07-12] MEDS: IRON SUCROSE COMPLEX 300 MG in Normal Saline 250 ML 167 MG IVPB (09:21)
--- NOTE | 2021-07-12 09:58 | PT.INTREAT ---
Date of service: 07/12/21 Time of Service: 09:21 PT Notes Visit Reasons: Blood Loss Anemia Inpatient Physical Therapy Treatment Note [facility] Date: 07/12/2021 PRECAUTIONS: Activity as Tolerated, non-ambulatory SUBJECTIVE: Missy is pleasant and agreeable to participating in PT. She states that she would like to transition to LONG-TERM as she does not feel that she can live alone again. OBJECTIVE: PAIN: No c/o pain BED MOBILITY/TRANSFERS/GAIT: Deferred THEREX: Patient was instructed in a long-sitting UE and LE strengthening program, as per flow sheet. She demonstrates global weakness L>R in both UE and LE. ASSESSMENT: Patient continues to demonstrate limited activity tolerance, and global weakness. PLAN: Continue with global strengthening and general conditioning for continued progression toward baseline level of function. TREATMENT CODE/TIME: 16 minutes; 22079 (09:21)
--- NOTE | 2021-07-12 10:33 | PGE_ITS ---
Date of Service Date of service: 07/12/21 Time of Service: 10:33 Assessment and Plan Assessment and plan (1) Blood loss anemia: Status: Acute Assessment and plan: Patient presented with generalized weakness and severe anemia with hemoglobin 6.4 g. Subsequently transfused 2 units of packed red cells over the last couple days with stabilization of her blood count with a hemoglobin 8.4 g today. Still has Hemoccult positive stools. Currently on Protonix and Carafate for empiric GI protection. Surgical consult requested and case was discussed with Dr. Ginny Gonzalez. Dr. Gonzalez will see the patient later today and put on scheduled for EGD for tomorrow. (2) Weakness: Status: Acute Assessment and plan: Multifactorial including her myasthenia gravis and her neurologic disability from her syringomyelia. Probably acutely exacerbated by her severe anemia. We will consult with physical therapy to evaluate and initiate treatment. We will check a CT scan of her head to assess stability of her OFFSET PRINTER shunt. (3) Myasthenia gravis: Status: Chronic Assessment and plan: She endorses NOT taking her mestinon for appx 2 months. Mestinon has been resumed. Physical therapy consulted. Will check CT scan of her head to evaluate for stability of her OFFSET PRINTER shunt. (4) Protein malnutrition: Status: Acute Assessment and plan: Poor oral intake with low Total protein and albumin levels of 5.9 and 2.7 respectively. B12 levels normal at 441 pg/mL however her folate level is low at 5.6 ng/mL. Methylmalonic acid and homocystine levels have been sent out. Other vitamin levels have also been or include B1 and B2 and B3. I put her on protein supplements and of asked for nutritional consult. (5) Urinary frequency: Status: Chronic Assessment and plan: I suspect that she has a neurogenic bladder. She previously has seen Britni Cowart and Dr. Jorge through the urology clinic. As she is having a high postvoid residual of over [address] a Brar catheter and consult with urology. (6) Pyuria: Status: Acute Assessment and plan: We will have nurse send her urine for urine culture. Other than acute urinary retention she really has no other symptoms such as fever or chills. Await results of her urinalysis but if there is a lot of bacteria along with the pyuria she may need some empiric antibiotic coverage for UTI caused by her urinary retention. (7) Constipation, chronic: Status: Acute Assessment and plan: Patient reportedly had a large bowel movement yesterday. I put her on scheduled dose of MiraLAX and docusate and senna. I have asked nursing to check her for impaction every 3 days if she has no bowel movement. We will continue digital rectal disimpaction and enemas on a as needed basis. If her EGD is negative for source of GI bleeding she will need a colonoscopy to look for the source of her constipation and GI bleeding. Is in need to be done to rule out an occult tumor. (8) Peripheral neuropathy: Status: Acute Assessment and plan: Cont gabapentin (9) Chronic pain: Status: Chronic Assessment and plan: Cont Fentanyl patches. (10) Hypertension: Status: Chronic Assessment and plan: Presented with hypotension. Patient had some transiently low blood pressures last night. Continue to hold her lisinopril/HCTZ. (11) COPD (chronic obstructive pulmonary disease): Status: Chronic Assessment and plan: No pulmonary complaints or symptoms. Not on inhalers. (12) Chronic kidney disease: Status: Chronic Assessment and plan: Creatinine elevated over baselin of appx 1.0; 1.7 on admission. Now 1.3. Hold lisinopril/HCTZ. Monitor. (13) Discharge planning issues: Status: Acute Assessment and plan: Pt is a DNR/DNI Palliative care pt. order was placed for palliative care consult July 08, 2021. Consult is still pending at this time. Care management; assist patient with home care vs placement options. Subjective Subjective Interval history since last seen: Patient had soft formed bowel movements yesterday that were Hemoccult positive. Hemoglobin has stabilized at 8.4 g after receiving transfusion of 2 units of packed red cells over 07/09/2021 and 07/10/2021. She denies any nausea or vomiting or abdominal pain although she does admit to some suprapubic discomfort and nursing staff reports that she has a postvoid residual of greater than 900 mL. She is going to be straight cathed and we will recheck her postvoid residual in 6 hours if she continues to have residuals of 300 mL or more we will leave a Brar catheter in. She is previously seen Dr. Jorge and Britni Cowart from urology services which will consult tomorrow. I discussed with the patient the fact that she has occult blood in her stools and that she has been severely anemic and that we do not know the source. I asked her whether she be willing to consider having an EGD and/or colonoscopy and she is agreeable to same. She believes she had a stomach ulcer many years ago in her 20s but has not had a recent endoscopy. We currently have her on Carafate and Protonix for GI protection. Of also learned from her history that she has prior history of an arachnoid cyst causing hydrocephalus and this led to a OFFSET PRINTER shunt and she also had syringomyelia and had decompression laminectomy of her cervical spine. Cervical surgery was done at [facility] she believes in May 2020 the OFFSET PRINTER shunt was placed a number of years ago possibly in the she is not clear of the dates. Exam Narrative Exam Narrative: Elderly female lying in bed semifowler position alert and oriented person place time circumstance in no acute distress. Neck exam reveals surgical scar over the cervical spine and there is a palpable shunt along the left posterior cervical area. Lungs are clear to auscultation Heart is regular rate and rhythm Abdomen is slightly distended over the suprapubic area she has discomfort over the area of distention which extends from the suprapubic to just below her umbilicus. She has active bowel sounds. Extremities without peripheral cyanosis or edema. She has muscle wasting in her hands particular left hand she has generalized weakness in her legs but she is able to weakly flex her hips as well as dorsiflex and plantarflex her feet. Objective Last Vital Signs Temp 36.2 C L 07/12/21 07:46 Pulse 95 H 07/12/21 09:14 Resp 19 07/12/21 07:46 BP 121/81 07/12/21 07:46 Pulse Ox 95 07/12/21 07:46 Laboratory Results - last 24 hr 07/11/21 07/12/21 07/12/21 18:08 06:46 06:46 WBC 5.25 RBC 3.13 L Hgb 8.4 L Hct 25.8 L MCV 82.4 MCH 26.8 L MCHC 32.6 RDW 15.0 H Plt Count 409 H MPV 9.3 Immature Gran % 0.6 Neutrophils % 62.6 Lymphocytes % 20.2 Monocytes % 12.2 Eosinophils % 4.0 Basophils % 0.4 Nucleated RBC % 0 Absolute Neutrophils 3.29 Absolute Lymphocytes 1.06 L Absolute Monocytes 0.64 Absolute Eosinophils 0.21 Absolute Basophils 0.02 Sodium 138 Potassium 4.0 Chloride 105 Carbon Dioxide 28.1 Anion Gap 4.9 BUN 28 H D Creatinine 1.0 Estimated GFR/1.73 m2 55.47 Glucose 80 Calcium 8.5 Vitamin B12 Folate Stl Occult Bld Clinic Cancelled 07/12/21 06:46 WBC RBC Hgb Hct MCV MCH MCHC RDW Plt Count MPV Immature Gran % Neutrophils % Lymphocytes % Monocytes % Eosinophils % Basophils % Nucleated RBC % Absolute Neutrophils Absolute Lymphocytes Absolute Monocytes Absolute Eosinophils Absolute Basophils Sodium Potassium Chloride Carbon Dioxide Anion Gap BUN Creatinine Estimated GFR/1.73 m2 Glucose Calcium Vitamin B12 441 Folate 5.6 L Stl Occult Bld Clinic
--- NOTE | 2021-07-12 11:20 | SCONE_ITS ---
Date of service: 07/12/21 Time of Service: 11:20 Assessment and Plan Assessment and plan (1) Acute anemia: Status: Acute Assessment and plan: Ms Kim is a 66 year old female with multiple chronic medical problems, who came in for a near syncopal episode and was found to have a Hgb of 6.4. She was transfused 2 units of blood. Discussed EGD with her tomorrow to try and find the source of bleeding. Risks, benefits and complications were reviewed with the patient and she wished to proceed. NPO after midnight History of Present Illness History of Present Illness Chief Complaint: Anemia, Occult Positive stool Narrative: This is a 66 yo female with a PMH of myesthenia gravis, spinal cord syrinx with decompression, chronic constipation / narcotic bowel, HTN, HLD, COPD, peripheral neuropathy, chronic renal insuff., gluten intolerance, chronic pain, migraine MUÑOZ, previous alcohol abuse and tobacco abuse syndromes, depression/anxiety who presented to the ED after having a syncopal episode while performing a digital rectal disimpaction of stool (a procedure she performs regularly). She denied hitting her head. She feels like she is no longer capable of living at home and caring for herself. She had no CP or palpitations. No N/V/abd pain. No F/C. Upon arrival her BP was 82/49. It did improve with systolic readings in the 90- low 100s. No tachycardia. Rectal exam with brown stool that was guaic positive. Lytes normal. BUN 46. Creatinine 1.7 (1.1 on 03/24/21). Bili and LFTs normal. UA with mod blood, small leuk est, 5-10 RBCs. 20-50 WBCs. Many epithel ia cells, many bacteria. Hgb 6.4 (13.0 on 03/24/21). WBC count normal. Platelets 438. CXR: Redemonstration of elevated left hemidiaphragm with left basilar atelectasis. Possibility of underlying infiltrate is difficult to entirely exclude. Mild pulmonary vascular congestion and right basilar atelectasis I was consulted for possible EGD. Patient is amenable to having an EGD done. She feels very weak. Is having stools that continue to be guaiac positive. She was given 2 units of blood yesterday. Hgb did appropriately improve. She has a history of gastric ulcer in her 20's. She was treated with Cimetidine. She does have intermittent epigastric pain that patient states she ignores. She has been started on Carafate and Protonix. Consults Consult date: 07/12/21 Requesting physician: Lucio Hsieh Review of Systems Constitutional Constitutional: Denies fever(s), Denies headache(s), Reports weakness and Denies weight loss Eyes Eyes: Denies change in vision ENT Ears, Nose, Mouth, and Throat: Denies dysphagia, Denies headache(s) and Denies hoarseness Cardiovascular Cardiovascular: Denies chest pain, Denies chest pain at rest, Denies irregular heart rhythm, Denies palpitations and Denies dyspnea Respiratory Respiratory: Denies chest congestion, Denies cough and Denies dyspnea Gastrointestinal Gastrointestinal: Reports as per HPI and Denies dysphagia Genitourinary Genitourinary: Reports system reviewed and no additional complaints, except as documented Musculoskeletal Musculoskeletal: Reports system reviewed and no additional complaints, except as documented Neurologic Neurologic: Denies headache(s) and Reports weakness Endocrine Endocrine: Denies palpitations [facility] Active Problem List (Updated 07/12/21 @ 11:13 by Lucio Hsieh) Pyuria (Acute) Urinary retention (Acute) Protein malnutrition (Acute) Acute anemia (Acute) Generalized weakness (Acute) Acute GI bleeding (Acute) Blood loss anemia (Acute) Discharge planning issues (Acute) DNI (do not intubate) (Acute) DNR (do not resuscitate) (Acute) POLST (Physician Orders for Life-Sustaining Treatment) (Acute) Constipation, chronic (Acute) Former smoker (Acute) Spinal stenosis (Acute) Urinary frequency (Chronic) Frequent falls (Acute) Ataxia (Acute) Left hand weakness (Acute) Hypokalemia (Acute) Peripheral neuropathy (Acute) Arachnoid cyst (Acute) Chronic renal insufficiency (Acute) Dental caries (Acute) History of gluten intolerance (Acute) Bunion of unspecified foot (Acute) Blurred vision (Acute) Prediabetes (Acute) Pain (Acute) Chronic pain (Chronic) Weakness (Acute) Spasticity (Acute) Asymptomatic microscopic hematuria (Acute) Left arm weakness (Acute) Neuropathic pain of both legs (Chronic) Myasthenia gravis (Chronic) Migraine headache without aura (Chronic) GERD (gastroesophageal reflux disease) (Chronic) Syrinx of spinal cord (Chronic) Intracranial arachnoid cyst (Chronic) Hyperlipidemia (Chronic) Hypertension (Chronic) COPD (chronic obstructive pulmonary disease) (Chronic) Chronic kidney disease (Chronic) Insomnia (Chronic) Anxiety (Chronic) Depression (Chronic) Medical History (Updated 07/12/21 @ 11:13 by Lucio Hsieh) History of lacunar cerebrovascular accident Surgical History H/O craniotomy 1980s; L cerebellar arachnoid cyst drain with shunt placement H/O thymectomy 1980s S/P appendectomy S/P cystourethroscopy with dilation of urethral stricture S/P tonsillectomy Family History Mother Diabetes Father Neuropathy Back problem Brother Myasthenia gravis Social History Smoking/Tobacco Use Status: Former Tobacco Use Smoking risk assessment performed?: Yes Alcohol Intake: former Drug use: Never Details: Patient states that she has felt suicidal for a while now but it is worse. She states that she does not currently have a plan Household members: other Housing: penitentiary Number of Children: 0 Pets and animals: No What type of physical activity do you participate in: none Seatbelt use: always Do you feel safe at home: No Do you feel safe in your relationship?: Yes Additional Social history: She does not drive. Exam Const General: cooperative, comfortable and no acute distress Orientation: alert and oriented x3 HENMT Head: normocephalic and atraumatic Resp Effort & Inspection: normal respiratory effort Auscultation: clear to auscultation bilaterally Cardio Rate: regular rate Rhythm: regular rhythm Heart Sounds: no gallops, no murmurs and no rubs GI Inspection: normal to inspection Palpation: soft, no hepatosplenomegaly and nontender Auscultation: normal bowel sounds Results Last Vital Signs Temp 97.2 F L 07/12/21 07:46 Pulse 95 H 07/12/21 09:14 Resp 19 07/12/21 07:46 BP 121/81 07/12/21 07:46 Pulse Ox 95 07/12/21 07:46 Labs Result diagrams: 07/12/21 06:46 07/12/21 06:46 Labs: Laboratory Results - last 24 hr 07/11/21 07/12/21 07/12/21 18:08 06:46 06:46 WBC 5.25 RBC 3.13 L Hgb 8.4 L Hct 25.8 L MCV 82.4 MCH 26.8 L MCHC 32.6 RDW 15.0 H Plt Count 409 H MPV 9.3 Immature Gran % 0.6 Neutrophils % 62.6 Lymphocytes % 20.2 Monocytes % 12.2 Eosinophils % 4.0 Basophils % 0.4 Nucleated RBC % 0 Absolute Neutrophils 3.29 Absolute Lymphocytes 1.06 L Absolute Monocytes 0.64 Absolute Eosinophils 0.21 Absolute Basophils 0.02 Sodium 138 Potassium 4.0 Chloride 105 Carbon Dioxide 28.1 Anion Gap 4.9 BUN 28 H D Creatinine 1.0 Estimated GFR/1.73 m2 55.47 Glucose 80 Calcium 8.5 Vitamin B12 Folate Stl Occult Bld Clinic Cancelled 07/12/21 06:46 WBC RBC Hgb Hct MCV MCH MCHC RDW Plt Count MPV Immature Gran % Neutrophils % Lymphocytes % Monocytes % Eosinophils % Basophils % Nucleated RBC % Absolute Neutrophils Absolute Lymphocytes Absolute Monocytes Absolute Eosinophils Absolute Basophils Sodium Potassium Chloride Carbon Dioxide Anion Gap BUN Creatinine Estimated GFR/1.73 m2 Glucose Calcium Vitamin B12 441 Folate 5.6 L Stl Occult Bld Clinic
[2021-07-12 11:27] LABS: Bilirubin Negative (Negative); Blood Moderate (Negative); Clarity Cloudy (Clear); Glucose Negative (Negative); Ketones Negative (Negative); Leukocyte Esterase Large (Negative); Nitrite Negative (Negative); Urobilinogen 0.2 EU/dL (Up TO 0.2)
[2021-07-12 11:34] LABS: C & S Indicated? C&S Done As Ordered; WBC >50 HPF (0-5)
[2021-07-12] MEDS: Folic Acid 1 MG TAB PO ×2 (12:14→20:49)
[2021-07-12] MEDS: Fosfomycin Tromethamine 3 GM PACKET PO (12:14)
--- NOTE | 2021-07-12 12:36 | W.ANESPRE ---
General Info Date of Service Date Performed: 07/13/21 Height: 5 ft 4 in Weight: 65.771 kg Body Mass Index (BMI): 24.9 Meds Allergies and Home Medications Allergies Allergy/AdvReac Type Severity Reaction Status Date / Time codeine Allergy Severe Verified 07/09/21 12:33 iodine Allergy Severe Verified 07/09/21 12:33 Penicillins Allergy Severe Anaphylaxsi Verified 07/09/21 12:33 s Sulfa (Sulfonamide Allergy Severe Swelling/Ed Verified 07/09/21 12:33 Antibiotics) kendal trazodone AdvReac Intermediate PER PT Verified 07/09/21 12:33 MAKES HER HEART RACE. Home Medication Medication Instructions Recorded lisinopril-hydrochlorothiazide 1 tab-cap PO DAILY tab-cap 03/02/18 [Zestoretic] potassium chloride [Klor-Con M20] 20 meq PO DAILY tab-cap 03/02/18 gabapentin 300 mg capsule 300 mg PO DIRECTED #450 cap 04/14/20 lidocaine-prilocaine 2.5 %-2.5 % 1 applic TP Q4H PRN #120 gm 04/14/20 topical cream pyridostigmine bromide 180 mg 180 mg PO DAILY #90 tab-cap 04/14/20 tablet,extended release aspirin 81 mg tablet 81 mg PO DAILY 11/12/20 acetaminophen 500 mg tablet 1,000 mg PO TID PRN PRN #90 tab 03/13/21 sennosides 8.6 mg tablet 8.6 mg PO BID PRN 04/16/21 zolpidem 5 mg tablet 10 mg PO QHS PRN tab 04/16/21 lidocaine 5 % topical patch 1 patch TOPICAL DAILY PRN #30 ea 05/25/21 fentanyl 25 mcg/hr transdermal 1 patch TRANSDERMAL Q72H #10 ea 06/19/21 patch MDD 37 mcg/hr fentanyl 12 mcg/hr transdermal 1 patch TRANSDERMAL Q72H #7 ea MDD 07/03/21 patch 12 mcg/hr omeprazole 20 mg capsule,delayed 20 mg PO DAILY #30 cap 07/03/21 release ondansetron 4 mg disintegrating 4 mg PO Q8H PRN #30 tab 07/03/21 tablet Current Visit Medications: Current Medications Generic Name Dose Route Start Last Admin Trade Name Freq PRN Reason Stop Dose Admin Acetaminophen 650 mg 07/10/21 18:51 07/11/21 20:33 Acetaminophen 325 Mg Tab PO 650 mg Q6H PRN PRN Administration Dimethicone/Zinc Oxide 0 gm 07/09/21 14:09 [place] Protect Cream 142 Gm Tube TP PRN PRN Docusate Sodium 100 mg 07/11/21 20:00 07/12/21 08:20 Docusate Sodium 100 Mg/10 Ml Cup PO 100 mg BID PATY Administration Fentanyl 12 mcg 07/09/21 16:00 07/09/21 16:40 Fentanyl 12 Mcg Patch TD 12 mcg Q72H PATY Administration Fentanyl 25 mcg 07/09/21 16:00 07/09/21 16:42 Fentanyl 25 Mcg Patch TD 25 mcg Q72H PATY Administration Folic Acid 1 mg 07/12/21 20:00 Folic Acid 1 Mg Tab PO BID PATY Gabapentin 600 mg 07/09/21 20:00 07/12/21 08:22 Gabapentin 300 Mg Cap PO 600 mg BID PATY Administration Gabapentin 300 mg 07/10/21 14:00 07/11/21 14:39 Gabapentin 300 Mg Cap PO 300 mg 1400 PATY Administration Sodium Chloride 500 mls @ 0 mls/hr 07/09/21 12:43 07/12/21 09:21 Saline 500ml Bag IV 30 mls/hr PRN PRN Administration As Directed Iron Sucrose 300 mg/ Sodium 265 mls @ 167 mls/hr 07/12/21 08:30 07/12/21 09:21 Chloride IVPB 07/14/21 10:06 167 mls/hr DAILY PATY Administration Ringer's Solution 1,000 mls @ 100 mls/hr 07/12/21 23:00 IV INFUSION [facility] IV Miscellaneous Supplies 1 each 07/09/21 12:45 Iv Access IV DIRECTED [facility] Multi-Ingredient Supplement 1 ounce 07/11/21 20:00 07/12/21 08:21 Protein Nutritional Supplement 16 Gm 1 Ounce Packet PO 1 ounce TID PATY Administration Pantoprazole Sodium 40 mg 07/11/21 20:00 07/12/21 08:21 Pantoprazole 40 Mg Tabcr PO 40 mg BID@0730,2000 PATY Administration Polyethylene Glycol 17 gm 07/12/21 08:30 07/12/21 08:21 Polyethylene Glycol 3350 17 Gm Packet PO 17 gm DAILY PATY Administration Potassium Chloride 20 meq 07/10/21 08:30 07/12/21 08:21 Potassium Chloride 20 Meq Tabcr PO 20 meq DAILY PATY Administration Pyridostigmine [place] 180 mg 07/09/21 22:00 Pyridostigmine 180 Mg Tabcr PO HS PATY Pyridostigmine [place] 180 mg 07/10/21 22:00 07/11/21 21:32 Pyridostigmine 60 Mg Tab PO 180 mg HS PATY Administration Sennosides 2 tab 07/10/21 08:30 07/12/21 08:22 Senna Tab PO 2 tab DAILY PATY Administration Sennosides 1 tab 07/09/21 15:56 07/10/21 19:39 Senna Tab PO 1 tab BID PRN PRN Administration Sodium Biphosphate/Sodium Phosphate 133 ml 07/09/21 14:16 Na Phosphate Enema 133 Ml Btl IA DAILY PRN PRN Sodium Chloride 0 ml 07/09/21 12:43 07/12/21 09:21 Normal Saline Flush 10 Ml Syr IVP 10 ml PRN PRN Administration Sucralfate 1 gm 07/11/21 22:00 07/12/21 12:14 Sucralfate 1 Gm Tab PO 1 gm AC & HS PATY Administration Zolpidem Tartrate 10 mg 07/09/21 15:56 07/11/21 21:32 Zolpidem 10 Mg Tab PO 10 mg HS PRN PRN Administration insomnia PFSH Active Problems Active Problems: Problem Status Onset Code Pyuria R82.81 Urinary retention R33.9 Protein malnutrition E46 Acute anemia D64.9 Generalized weakness R53.1 Acute GI bleeding K92.2 Blood loss anemia D50.0 Discharge planning issues Z02.9 DNI (do not intubate) Z78.9 DNR (do not resuscitate) Z66 POLST (Physician Orders for Life-Sustaining Treatment) Z78.9 Constipation, chronic K59.09 Former smoker Z87.891 Spinal stenosis M48.00 Urinary frequency R35.0 Frequent falls R29.6 Ataxia R27.0 Left hand weakness R29.898 Hypokalemia E87.6 Peripheral neuropathy G62.9 Arachnoid cyst G93.0 Chronic renal insufficiency N18.9 Dental caries K02.9 History of gluten intolerance Z87.19 Bunion of unspecified foot M21.619 Blurred vision H53.8 Prediabetes R73.03 Pain R52 Chronic pain G89.29 Weakness R53.1 Spasticity R25.2 Asymptomatic microscopic hematuria R31.21 Left arm weakness R29.898 Neuropathic pain of both legs G57.93 Myasthenia gravis G70.00 Migraine headache without aura G43.009 GERD (gastroesophageal reflux disease) K21.9 Syrinx of spinal cord G95.0 Intracranial arachnoid cyst G93.0 Hyperlipidemia E78.5 Hypertension I10 COPD (chronic obstructive pulmonary disease) J44.9 Chronic kidney disease N18.9 Alcohol abuse F10.10 Insomnia G47.00 Anxiety F41.9 Depression F32.9 Medical History Active Problem List (Updated 07/12/21 @ 11:13 by Lucio Hsieh) Pyuria (Acute) Urinary retention (Acute) Protein malnutrition (Acute) Acute anemia (Acute) Generalized weakness (Acute) Acute GI bleeding (Acute) Blood loss anemia (Acute) Discharge planning issues (Acute) DNI (do not intubate) (Acute) DNR (do not resuscitate) (Acute) POLST (Physician Orders for Life-Sustaining Treatment) (Acute) Constipation, chronic (Acute) Former smoker (Acute) Spinal stenosis (Acute) Urinary frequency (Chronic) Frequent falls (Acute) Ataxia (Acute) Left hand weakness (Acute) Hypokalemia (Acute) Peripheral neuropathy (Acute) Arachnoid cyst (Acute) Chronic renal insufficiency (Acute) Dental caries (Acute) History of gluten intolerance (Acute) Bunion of unspecified foot (Acute) Blurred vision (Acute) Prediabetes (Acute) Pain (Acute) Chronic pain (Chronic) Weakness (Acute) Spasticity (Acute) Asymptomatic microscopic hematuria (Acute) Left arm weakness (Acute) Neuropathic pain of both legs (Chronic) Myasthenia gravis (Chronic) Migraine headache without aura (Chronic) GERD (gastroesophageal reflux disease) (Chronic) Syrinx of spinal cord (Chronic) Intracranial arachnoid cyst (Chronic) Hyperlipidemia (Chronic) Hypertension (Chronic) COPD (chronic obstructive pulmonary disease) (Chronic) Chronic kidney disease (Chronic) Insomnia (Chronic) Anxiety (Chronic) Depression (Chronic) Medical History (Updated 07/12/21 @ 11:13 by Lucio Hsieh) History of lacunar cerebrovascular accident Surgical History Surgical History H/O craniotomy 1980s; L cerebellar arachnoid cyst drain with shunt placement H/O thymectomy 1980s S/P appendectomy S/P cystourethroscopy with dilation of urethral stricture S/P tonsillectomy Tobacco Smoking/Tobacco Use Status: Former Tobacco Use Alcohol Alcohol Intake: former Substance Use Substance use: Never Details: Patient states that she has felt suicidal for a while now but it is worse. She states that she does not currently have a plan Vital Signs and Lab Results Vital Signs Most Recent Vital Signs in EMR: Most Recent Vital Signs Temp Pulse Resp BP Pulse Ox 36.2 C L 95 H 19 121/81 95 07/12/21 07:46 07/12/21 09:14 07/12/21 07:46 07/12/21 07:46 07/12/21 07:46 Lab Results Result Diagrams: 07/13/21 06:25 07/13/21 06:25 Blood Type / Crossmatch: Patient ABO/Rh O Positive 07/09/21 13:25 07/09/21 Antibody Screen NEGATIVE 07/09/21 13:25 07/09/21 Crossmatch See Detail 07/09/21 13:25 07/09/21 Complete Blood Count: White Blood Count 5.10 10^3/uL (4.4-10.8) 07/13/21 06:25 07/13/21 Red Blood Count 3.26 10^6/uL (3.93-5.22) L 07/13/21 06:25 07/13/21 Hemoglobin 8.4 g/dL (11.2-15.7) L 07/13/21 06:25 07/13/21 Hematocrit 26.9 % (36.0-46.0) L 07/13/21 06:25 07/13/21 Platelet Count 402 10^3/uL (130-400) H 07/13/21 06:25 07/13/21 Complete Metabolic Panel: Sodium Level 140 mmol/L (136-145) 07/13/21 06:25 07/13/21 Potassium Level 3.9 mmol/L (3.5-5.1) 07/13/21 06:25 07/13/21 Chloride Level 107 mmol/L (98-107) 07/13/21 06:25 07/13/21 Carbon Dioxide Level 25.6 mmol/L (21.0-32.0) 07/13/21 06:25 07/13/21 Blood Urea Nitrogen 34 mg/dL (7-18) H 07/13/21 06:25 07/13/21 Creatinine 0.9 mg/dL (0.55-1.02) 07/13/21 06:25 07/13/21 Estimated GFR/1.73 m2 >= 60.00 (mL/min/1.73m2) 07/13/21 06:25 07/13/21 Magnesium Level 2.1 mg/dL (1.8-2.4) 07/09/21 12:55 07/09/21 Calcium Level 8.7 mg/dL (8.5-10.1) 07/13/21 06:25 07/13/21 Albumin 2.7 g/dL (3.4-5.0) L 07/09/21 12:55 07/09/21 Glucose Level 81 mg/dL (74-106) 07/13/21 06:25 07/13/21 Liver Function Panel: Alanine Aminotransferase (ALT/SGPT) 22 U/L (14-59) 07/09/21 12:55 07/09/21 Aspartate Amino Transf (AST/SGOT) 16 U/L (15-37) 07/09/21 12:55 07/09/21 Coagulation Panel: INR International Normalized Ratio 1.0 (0.9-1.1) 07/10/21 06:25 07/10/21 Prothrombin Time 10.5 sec (9.3-11.0) 07/10/21 06:25 07/10/21 Cardiac Panel: Troponin I < 0.05 ng/mL (<0.06) 07/09/21 12:55 07/09/21 LO-Crq-O-Type Natriuretic Peptide 187 pg/mL (<300) 07/09/21 12:55 07/09/21 Arterial Blood Gas: No Data to Display Venous Blood Gas: No Data to Display Pancreas Panel: No Data to Display Thyroid Panel: No Data to Display Infectious Disease: Coronavirus (COVID-19)(PCR) Negative (Negative) 07/09/21 14:42 07/09/21 Coronavirus 2019 Source Nasal/Nares 07/09/21 14:42 07/09/21 Blood Cultures: No Data to Display Toxicology Panel: No Data to Display Imaging and Studies Imaging and Studies EKG Summary: DATE/TIME OF SERVICE: 07/09/21 1317 Exam: Resting ECG Reason for Exam: syncope Patient Location: E HR:92 bpm ECG Measurements Heart Rate 92 AXIS IA 148 P 54 QRSd 79 QRS 18 QT 352 T41 QTc 436 Conclusion Sinus rhythm...normal P axis, V-rate 60- 99 Low voltage, precordial leads...precordial leads <1.0mV. Sinus. No STEMI. Anesthesia Assessment and Plan Anesthesia History Personal History: No History of Anesthesia Complications Family History: No Family History of Anesthesia Complications Exercise Tolerance Exercise Tolerance: Metabolic Equivalents<4 Pertinent Negatives Pertinent Negatives: No Symptoms of GERD, No Major Cardiovascular Symptoms or Complaints, No Major Pulmonary Symptoms or Complaints and No History of CVA/TIA Cardiac & Pulmonary Exam Cardiac Exam: Normal S1/S2 Heart Sounds Pulmonary Exam: Clear Bilateral Breath Sounds Implantable Cardiac Device Does patient have a Pacemaker or an ICD?: No Airway Exam Known Difficult Airway: No Previous Airway Comments:: Mac 3 Grade I at [facility] in 2019 Mallampati Class: 4 Mouth Opening: Normal (> 3cm) Thyromental Distance: Greater than 3 cm Neck Range of Motion: Full ROM Neck Circumference: Normal Teeth Condition: Generalized Poor Dentition ASA Classification ASA Score: ASA 3 Emergency Case?: No NPO Status NPO Status: NPO Clears >2 hours, Solids >8 hours Anesthesia Plan Resuscitation Status: DNR Fully Suspended During Perioperative Period (Discussed temporary suspension of DNR status for duration of procedure) Anesthesia Technique: MAC Anesthesia Airway Planned: Natural Airway Monitors Used: Standard Monitors Preoperative Comments:: 66 yo female admitted on 07/09 with vagal episode while performing self disimpassion. found to have blood in stool. hgb 6.4 got 1 u PRBCs, did get lasix after, 8.4 now. Sig PMHx: chronic constipation, neuropathy, chronic pain, myasthenia gravis ( has not been taking her mestionon), HTN, COPD, syrinx/arachnoid cyst - has had cervical and upper thoracic surgery in the past. EKG: sinus rhythm. Previous Mac 3 grade 1, easy mask . from 07/12 preop: Patient at increased anesthesia risk. History if myasthenia gravis for which she is followed and in remission of. She also has a history of remote multiple lacunar infarcts/micro-hemorrhages. In 1992, she had valveless shunt placed for her left cerebellar arachnoid cyst. This was replaced with a valved shunt which stopped working 5 or so years later. She also had a syrinx from C3-T11 with spinal cord compression. On 04/2020 she had multilevel c7-t4 laminectomy, had C2/C3 congenital fusion and a fenestration of her arachnoid cyst at [facility] and recovered well.
--- NOTE | 2021-07-12 14:08 | DI.CT_ITS ---
Exam(s) CT HEAD WO EXAM: CT HEAD WO CLINICAL HISTORY: evaluate [employer] shunt. TECHNIQUE: Imaging Protocol: Axial computed tomography images with coronal and sagittal reformatted images were created and reviewed COMPARISON: MR MRI - BRAIN W/WO CONTRAST from 02/10/2018 CR SKULL 2 VIEWS from 02/10/2018 MR MRI - BRAIN W/WO CONTRAST from 02/10/2018 FINDINGS: There are no skull fractures nor fluid in the visualized paranasal sinuses. There is a semi lunar s resendiz catheter in the inferior aspect of the left posterior fossa volume left suboccipital craniotomy defect. The distal tip is in the left pre pontine cistern. The other end of the shunt terminates at the internal table of the skull in the acceptable region and does not continue extra cranially. Previously described left-sided extra-axial cystic mass in the left side of the posterior fossa along the left side of the cerebellum and left cerebellopontine cistern is again noted and exhibits stable mass-effect on the left cerebellar hemisphere and middle cerebellar peduncle as well as the left jovanny e of the midbrain and carlos, as was evident on the prior MRI study listed above. There is stable ence phalomalacia and volume loss in the left cerebellar hemisphere. No new supra tentorial findings.. S table lacunar infarct in the right side of the carlos an in the right frontal harrison radiata adjacent t o the frontal horn of the right lateral ventricle is again noted. Also stable ex vacuo dilatation le ft side of the 4th ventricle. No true ventriculomegaly. Heavy calcification within the intracavernous internal carotid arteries noted and involving the supra clinoid aspect of these vessels as well as the right middle cerebral artery. There is also some calc ification in the right vertebral artery at the skull base. No new obvious intracranial findings. IMPRESSION: Relatively stable appearing left posterior fossa findings when compared to the prior MRI study of . Left posterior fossa semi lunar shaped shunt as described above. Its anterior tip is in the left pre pontine cistern. Posterior aspect appears to terminate at the lower left occipital bone craniotomy defect. No evidence of intracranial hemorrhage. No obvious infarction. RADIATION DOSE DELIVERED: 700.02mGy.cm Total DLP DATA REPOSITORY: All CT scans at this facility are submitted to the National Radiology Data Registry (NRDR) Dose Index Registry (DIR) with the [employer] (ACR). RADIATION OPTIMIZATION: All CT scans at this facility use at least one of these dose optimization te chniques: automated exposure control; mA and/or kV adjustment per patient size (includes targeted exa ms where dose is matched to clinical indication); or iterative reconstruction.
--- NOTE | 2021-07-12 14:51 | DI.VRAD_ITS ---
PROCEDURE INFORMATION: Exam: CT Head Without Contrast Exam date and time: 07/12/2021 10:52 AM Age: 66 years old Clinical indication: Condition or disease; Other: Evaluate vp account director shunt; Prior surgery TECHNIQUE: Imaging protocol: Computed tomography of the head without contrast. COMPARISON: MRI - BRAIN W/WO CONTRAST 02/10/2018 6:57 AM FINDINGS: Tubes, catheters and devices: Stable left suboccipital approach shunt catheter through the suboccipital craniotomy defect with the tip in the left prepontine cistern. 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 Stable mass effect on the left cerebellar hemisphere, middle cerebellar peduncle and left side of the midbrain and carlos. Stable encephalomalacia and volume loss in the left cerebellar hemisphere, left middle cerebellar peduncle. The castillo-white matter differentiation is within normal limits. There is no midline shift or mass effect in the supratentorial brain. There are mild nonspecific patchy foci of periventricular white matter hypodensity, probably due to chronic microvascular ischemic changes. Stable chronic lacunar infarction in the right side of the carlos and in the right frontal harrison radiata adjacent to the frontal horn of the right lateral ventricle. Cerebral ventricles: Stable ex vacuo dilatation of the left side of the 4th ventricle. No ventriculomegaly. Sulci and basal cisterns are prominent due to parenchymal volume loss. Paranasal sinuses: Mild mucosal thickening in the bilateral anterior ethmoidal air cells. Mastoid air cells: Stable opacification in the right mastoid air cells, and to chronic mastoid effusion. Bones/joints: No acute fracture. Soft tissues: Unremarkable. IMPRESSION: 1. Stable left suboccipital approach shunt catheter traversing through the left posterior fossa extra-axial mass with the tip in the left prepontine cistern. 2. 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 3. Stable encephalomalacia and volume loss in the left middle cerebellar peduncle, left side of the cerebellum, chronic lacunar infarction in the right side of the carlos and right frontal white matter. 4. No acute or new intracranial abnormality. No significant interval change from the previous MRI. Dictated and Authenticated by: Vahid Patterson MD. Ordering:[facility] Мария Valdes MD
[2021-07-12] MEDS: fentaNYL 12 MCG PATCH TD (15:28)
[2021-07-12] MEDS: Gabapentin 300 MG CAP PO (15:28)
[2021-07-12] MEDS: fentaNYL 25 MCG PATCH TD (15:29)
[2021-07-12 15:33] VITALS: BP 147/95; PULSE 97; RESP 18; TEMP 37.1; O2SAT 94
[2021-07-12] MEDS: Acetaminophen 325 MG TAB 650 MG PO (22:20)
[2021-07-12] MEDS: Zolpidem 10 MG TAB PO (22:22)
[2021-07-12] MEDS: Lactated Ringers 1,000 ML 100 ML IV (23:58)
[2021-07-13] VITALS (9 sets, daily range): BP systolic 106–137; BP diastolic 62–86; PULSE 79–96; RESP 12–22; TEMP 36.3–37.3; O2SAT 92–95; BMI 24.9
[2021-07-13] MEDS: Acetaminophen 325 MG TAB 650 MG PO ×2 (07:26→20:14)
[2021-07-13 07:34] LABS: Abs Immature Grans 0.02 10^3/uL (0.0-0.06); Absolute Basophil Count 0.03 10^3/uL (0.0-0.2); Absolute Eosinophil Count 0.23 10^3/uL (0.0-0.7); Absolute Lymphocyte Count 0.93 10^3/uL (1.2-3.4); Absolute Monocyte Count 0.72 10^3/uL (0.1-0.8); Absolute Neutrophil Count 3.17 10^3/uL (1.2-6.7); Basophils % 0.6; Eosinophils % 4.5; HCT 26.9 % (36.0-46.0); HGB 8.4 g/dL (11.2-15.7); Immature Grans % 0.4; Lymphocytes % 18.2; MCH 25.8 pg (27.0-33.0); MCHC 31.2 % (32.0-36.0); MCV 82.5 fL (80-95); MPV 9.4 fL (8.0-11.0); Monocytes % 14.1; Neutrophils % 62.2; Nucleated RBC 0 %; Platelet Count 402 10^3/uL (130-400); RBC 3.26 10^6/uL (3.93-5.22); RDW 14.9 % (11.7-14.6); RDW-SD 45.2 fL
[2021-07-13 07:51] LABS: Anion Gap 7.4 mmol/L (3-11); BUN 34 mg/dL (7-18); CO2 25.6 mmol/L (21.0-32.0); CREATININE 0.9 mg/dL (0.55-1.02); Calcium 8.7 mg/dL (8.5-10.1); Chloride 107 mmol/L (98-107); Glucose 81 mg/dL (74-106); Potassium 3.9 mmol/L (3.5-5.1); Sodium 140 mmol/L (136-145)
[2021-07-13 09:32] LABS: Homocysteine 17.6 umol/L (5.0-13.9)
[2021-07-13] MEDS: Lactated Ringers 1,000 ML 100 ML IV (10:44)
--- NOTE | 2021-07-13 10:57 | STOM_PTH ---
PATIENT: Missy Kim LOC: [place] May#:[id number] AGE/SX: 66/F ROOM: 210 RE07/09/[address]: Ruddy Landeros MD : 1955 BED: A DIS: 07/14/2021 SPEC #: [id number] RECD: 07/13/21 12:47 STATUS: LAURY REQ #: [id number] LIBBY: 07/13/21 10:[address]: Ruddy Landeros DEPT: Surgical Specimen RECD BY: Amanda Nix ENTERED: 07/13/21 12:48 SP TYPE: STOMACH OTHR DR: MD Ginny Dennis MD Pearl, Logan InPatient Dan Wyand Tissues: 1 - STOMACH BIOPSY Procedures: GROSS AND MICRO LEVEL 4 Comments: [id number]
--- NOTE | 2021-07-13 11:16 | CMPROGNOTE_ITS ---
- If Service Date Differs Date of service: 07/13/21 Time of Service: 11:16 Care Management Progress Note S/O: Missy was lying in bed when CM met with her. She was alert, oriented and easily engaged in conversation. Missy lives alone and is agreeable to going to SNF when she is medically ready to be discharged. CM sent referrals to [facility] and [facility]. A: 66 year old female admitted to [facility] on 07/09/21 for Blood Loss Anemia P: Missy will likely benefit from SNF for short or shelter placement. Referrals were sent to [facility] and [facility]. She will follow up with the facility providers and plan of care. Transportation will be determined by disposition. CM will continue to support and assess for discharge needs.
--- NOTE | 2021-07-13 11:16 | PDOC.CMPRO ---
- If Service Date Differs Date of service: 07/13/21 Time of Service: 11:16 Care Management Progress Note S/O: Missy was lying in bed when CM met with her. She was alert, oriented and easily engaged in conversation. Missy lives alone and is agreeable to going to SNF when she is medically ready to be discharged. CM sent referrals to [facility]. A: 66 year old female admitted to [facility] on 07/09/21 for Blood Loss Anemia P: Missy will likely benefit from SNF for short or nursing home placement. Referrals were sent to [facility] and [facility] and [facility]. She will follow up with the facility providers and plan of care. Transportation will be determined by disposition. CM will continue to support and assess for discharge needs.
--- NOTE | 2021-07-13 11:31 | W.ANESPOSTOP ---
Postoperative Evaluation Date, Time and Location Date Performed: 07/13/21 Time Performed: 11:31 Patient Location: PACU Vital Signs Most Recent Imported Vital Signs: Most Recent Vital Signs Temp Pulse Resp BP Pulse Ox 36.4 C L 92 H 22 123/80 94 07/13/21 11:20 07/13/21 11:20 07/13/21 11:20 07/13/21 11:20 07/13/21 11:20 Pain Score Most Recent Pain Score: Most Recent Pain Score Pain Level [Bilateral Lower 4 07/11/21 14:38 Back] Pain Level [Bilateral 0 07/11/21 11:35 Generalized] Pain Level 0 07/13/21 11:20 Assessment Mental Status: Awake (Alert & Oriented to Patient Baseline) Airway and Respiratory Function: Patent airway with normal (patient baseline) respiratory exam Cardiovascular Function: Hemodynamically Stable Hydration Status: Adequately Hydrated Nausea & Vomiting: No Nausea or Vomiting Pain: Pt. Denies Any Pain Peripheral Nerve Block: Patient did not receive a nerve block
--- NOTE | 2021-07-13 11:45 | W.UROLOGYCON ---
Date of service: 07/13/21 Time of Service: 15:45 Assessment and Plan Assessment and plan (1) Urinary retention: Status: Acute Assessment and plan: She has a number of conditions that can contribute to incomplete bladder emptying. Our typical management generally focuses on optimizing contributing factors where possible. Typically, we would give the bladder a few days to decompress before giving her a voiding trial. We would attempt to optimize her bowel function and mobility and have the patient use timed voiding. Even if she is not able to empty her bladder completely, we would not necessarily need to start intermittent catheterization unless or until she has confirmed recurrent UTIs or signs of obstructive uropathy. If UTIs or obstructive uropathy become an issue, intermittent catheterization is the recommended management. If the patient is unable to perform CIC due to dexterity issues, we would need to consider placement of a suprapubic tube (which is preferred to an indwelling urethral catheter in women). Her initial urine culture is growing Enterococcus, but she is penicillin allergic. I have started her on Macrodantin until her final culture and sensitivity is available. History of Present Illness History of Present Illness Chief Complaint: Neurogenic bladder Narrative: This is a 66-year-old woman who is already under our care having been seen for persistent microscopic hematuria. She is now hospitalized with anemia. I have been asked to see her for possible neurogenic bladder. At the time of admission, a voided urinalysis was obtained. RBC, WBC and bacteria were present on the specimen, but there were also many epithelial cells present suspicious for a vaginal contaminent. No cathed specimen was submitted for culture initially. Since her admission, she has had elevated PVR up to 900 cc. Purulent urine was described on straight cath. A gomes catheter was placed and a urine culture was obtained. She has multiple medical issues that could contribute to a neurogenic bladder including an intracranial arachnoid cyst, myasthenia gravis, syrinx of the spinal cord and neuropathy. She also has functional issues that can contribute to voiding dysfunction including chronic constipation and mobility issues. In reviewing her previous urine cultures performed through our hospital laboratory, it does not appear that she has had frequent urinary tract infections. I only see two positive urine cultures in the past 4 years. A urine specimen submitted yesterday is growing Enterococcus. Review of Systems Constitutional Constitutional: Denies chills, Reports fatigue, Denies fever(s) and Reports weakness ENT Ears, Nose, Mouth, and Throat: Reports disequilibrium Respiratory Respiratory: Denies cough and Denies excessive phlegm production Gastrointestinal Gastrointestinal: Denies vomiting Neurologic Neurologic: Reports disequilibrium and Reports weakness Endocrine Endocrine: Reports fatigue [facility] Active Problem List (Updated 07/13/21 @ 23:22 by Lucio Hsieh) Enterococcus UTI (Acute) Gastric ulcer (Acute) Neurogenic bladder (Acute) Pyuria (Acute) Urinary retention (Acute) Protein malnutrition (Acute) Acute anemia (Acute) Generalized weakness (Acute) Acute GI bleeding (Acute) Blood loss anemia (Acute) Discharge planning issues (Acute) DNI (do not intubate) (Acute) DNR (do not resuscitate) (Acute) POLST (Physician Orders for Life-Sustaining Treatment) (Acute) Constipation, chronic (Acute) Former smoker (Acute) Spinal stenosis (Acute) Urinary frequency (Chronic) Frequent falls (Acute) Ataxia (Acute) Left hand weakness (Acute) Hypokalemia (Acute) Peripheral neuropathy (Acute) Arachnoid cyst (Acute) Chronic renal insufficiency (Acute) Dental caries (Acute) History of gluten intolerance (Acute) Bunion of unspecified foot (Acute) Blurred vision (Acute) Prediabetes (Acute) Pain (Acute) Chronic pain (Chronic) Weakness (Acute) Spasticity (Acute) Asymptomatic microscopic hematuria (Acute) Left arm weakness (Acute) Neuropathic pain of both legs (Chronic) Myasthenia gravis (Chronic) Migraine headache without aura (Chronic) GERD (gastroesophageal reflux disease) (Chronic) Syrinx of spinal cord (Chronic) Intracranial arachnoid cyst (Chronic) Hyperlipidemia (Chronic) Hypertension (Chronic) COPD (chronic obstructive pulmonary disease) (Chronic) Chronic kidney disease (Chronic) Insomnia (Chronic) Anxiety (Chronic) Depression (Chronic) Medical History (Updated 07/13/21 @ 23:22 by Lucio Hsieh) History of lacunar cerebrovascular accident Surgical History H/O craniotomy 1980s; L cerebellar arachnoid cyst drain with shunt placement H/O thymectomy 1980s S/P appendectomy S/P cystourethroscopy with dilation of urethral stricture S/P tonsillectomy Family History Mother Diabetes Father Neuropathy Back problem Brother Myasthenia gravis Social History Smoking/Tobacco Use Status: Former Tobacco Use Smoking risk assessment performed?: Yes Alcohol Intake: former Drug use: Never Details: Patient states that she has felt suicidal for a while now but it is worse. She states that she does not currently have a plan Household members: other Housing: prison Number of Children: 0 Pets and animals: No What type of physical activity do you participate in: none Seatbelt use: always Do you feel safe at home: No Do you feel safe in your relationship?: Yes Additional Social history: She does not drive. Exam Narrative Exam Narrative: She looks comfortable lying in her hospital bed. Her vital signs are documented elsewhere in the chart Her abdomen is soft with no masses The Gomes catheter is draining clear urine I reviewed her recent CT of the abdomen and pelvis on the PACS system. I see no evidence of hydronephrosis on either side. Her initial urine culture is growing Enterococcus Results Last Vital Signs Temp 36.3 C L 07/13/21 11:35 Pulse 86 07/13/21 11:35 Resp 19 07/13/21 11:35 BP 114/72 07/13/21 11:35 Pulse Ox 95 07/13/21 11:35 Labs Result diagrams: 07/13/21 06:25 07/13/21 06:25 Labs: Laboratory Results - last 24 hr 07/12/21 07/13/21 07/13/21 06:46 06:25 06:25 WBC 5.10 RBC 3.26 L Hgb 8.4 L Hct 26.9 L MCV 82.5 MCH 25.8 L MCHC 31.2 L RDW 14.9 H Plt Count 402 H MPV 9.4 Immature Gran % 0.4 Neutrophils % 62.2 Lymphocytes % 18.2 Monocytes % 14.1 Eosinophils % 4.5 Basophils % 0.6 Nucleated RBC % 0 Absolute Neutrophils 3.17 Absolute Lymphocytes 0.93 L Absolute Monocytes 0.72 Absolute Eosinophils 0.23 Absolute Basophils 0.03 Sodium 140 Potassium 3.9 Chloride 107 Carbon Dioxide 25.6 Anion Gap 7.4 BUN 34 H Creatinine 0.9 Estimated GFR/1.73 m2 >= 60.00 Glucose 81 Calcium 8.7 Homocysteine 17.6 H
--- NOTE | 2021-07-13 12:36 | W.NUTCONSULT ---
Date of service: 07/13/21 Time of Service: 12:36 Nutritional Consult ASSESSMENT: Ms. Kim presents with anemia and weakness. She has a history that includes myasthenia gravis, HTN, HLD, and CKD. She is 163 cm and 65.7 kg. Her BMI is 24.2 kg/m2 which is WNL. She is currently NPO for an EGD tomorrow however her PO intake was excellent prior to her NPO status. Of note, her weight history in [facility] shows that she has gained 18% body weight in the past few years which is significant. Estimated energy needs are 1600 kcal/day (25 kcal/kg/day) Estimated protein needs are 66 g/day (1.0 g/kg/day ) Estimated fluid needs 2000 ml/day (30 ml/kg/day) NUTRITIONAL DIAGNOSIS: None at this time. She does not meet the criteria for malnutrition at this time based on her recent PO intake, weight, and body composition. INTERVENTION: Will meet with Ms. Kim to discuss her dietary recall and discuss any nutritional therapy that she may need. Will await resumption of PO to meet with her. MONITORING AND EVALUATION: 1. Will continue to monitor weight, PO, nutritional status. 2. Will evaluate nutrition care plan ongoing and adjust as needed. Time Spent in Nutritional Counseling and Treatment: 0
[2021-07-13] MEDS: Senna TAB 2 TAB PO (12:38)
[2021-07-13] MEDS: Folic Acid 1 MG TAB PO ×2 (12:38→20:14)
[2021-07-13] MEDS: Docusate Sodium 100 MG/10 ML CUP PO ×2 (12:38→20:13)
[2021-07-13] MEDS: Potassium Chloride 20 MEQ TABCR PO (12:39)
[2021-07-13] MEDS: Gabapentin 300 MG CAP PO (12:39)
[2021-07-13] MEDS: IRON SUCROSE COMPLEX 300 MG in Normal Saline 250 ML 167 MG IVPB (12:39)
[2021-07-13] MEDS: Sucralfate 1 GM TAB PO ×3 (12:39→23:10)
--- NOTE | 2021-07-13 13:29 | PHACLINREV_ITS ---
Pharmacy Admission Review - Admission Clinical Review (Last Updated 07/12/21 @ 11:13 by Lucio Hsieh) Pyuria (Acute) Urinary retention (Acute) Protein malnutrition (Acute) Acute anemia (Acute) Generalized weakness (Acute) Acute GI bleeding (Acute) Blood loss anemia (Acute) Discharge planning issues (Acute) Constipation, chronic (Acute) Peripheral neuropathy (Acute) Weakness (Acute) codeine Allergy (Severe, Verified 07/09/21 12:33) iodine Allergy (Severe, Verified 07/09/21 12:33) Penicillins Allergy (Severe, Verified 07/09/21 12:33) Anaphylaxsis Sulfa (Sulfonamide Antibiotics) Allergy (Severe, Verified 07/09/21 12:33) Swelling/Edema trazodone Adverse Reaction (Intermediate, Verified 07/09/21 12:33) PER PT MAKES HER HEART RACE. Resuscitation Status DNR/DNI Height 5 ft 4 in Weight 64 kg - Renal Dosing Renal Dosing: BUN 34 mg/dL (7-18) H 07/13/21 06:25 Creatinine 0.9 mg/dL (0.55-1.02) 07/13/21 06:25 Medications needing adjustments: Reviewed (Scr: 0.9, CrCl~53.09mL/min, All me dications dosed appropriately.) - Anticoagulation Anticoagulation: Hgb 8.4 g/dL (11.2-15.7) L 07/13/21 06:25 Hct 26.9 % (36.0-46.0) L 07/13/21 06:25 Plt Count 402 10^3/uL (130-400) H 07/13/21 06:25 INR 1.0 (0.9-1.1) 07/10/21 06:25 Creatinine 0.9 mg/dL (0.55-1.02) 07/13/21 06:25 DVT Prophylaxis: N/A (Patient likely has an upper GI bleed. SCDs ordered.) Therapeutic Anticoagulation: N/A - Opiate Usage Evaluate Pain Scale/Pains Meds: Reviewed (Patient continuing on her home med Fentanyl 25mcg/hr and Fentanyl 12mcg/hr patch.) Scheduled Bowel Reg ordered if on Opiates?: Yes (Senna, Docusate, Miralax) - Relevant Labs Sodium 140 mmol/L (136-145) 07/13/21 06:25 Potassium 3.9 mmol/L (3.5-5.1) 07/13/21 06:25 Chloride 107 mmol/L (98-107) 07/13/21 06:25 Magnesium 2.1 mg/dL (1.8-2.4) 07/09/21 12:55 Electrolytes, C-Reactive P, ESR: Reviewed - DM Control DM Control: Glucose 81 mg/dL (74-106) 07/13/21 06:25 Insulin Dosing: N/A - Heart Failure/TN Heart Failure/TN: Troponin I < 0.05 ng/mL (<0.06) 07/09/21 12:55 NT-Pro-B Natriuret Pep 187 pg/mL (<300) 07/09/21 12:55 EF%, SINDY's, B-Blockers, Diuretics: N/A - BP Control BP Control: Blood Pressure 123/72 Blood Pressure 114/72 Blood Pressure 123/80 Blood Pressure 116/69 Blood Pressure 108/76 Blood Pressure 106/68 If elevated: N/A (Blood pressure low on admission, Lisinopril-HCTZ held. BP now within normal limits.) - Qtc Review If Elevated: N/A (QTc 436 on admission.) - IV to PO Switch IV Medications: Reviewed - Home Meds Home Med List reviewed: Reviewed (Omeprazole 20mg daily (changed to Pantoprazole 40mg BID), Lisinopril-HCTZ 20-25mg daily (held) and Zolpidem 5mg (increased to 10mg).) - Current meds Current Medication Order Review: Reviewed - Comments Comments/Follow Ups: Continue to monitor blood pressure, H&H, vital signs, labs and medication changes.
--- NOTE | 2021-07-13 13:46 | ENDO_ITS ---
Date of service: 07/13/21 Time of Service: 10:51 Endoscopy Report DATE OF PROCEDURE: 07/13/21 PRE-OP DIAGNOSIS: Anemia, Occult positive stool POST-OP DIAGNOSIS: same (and gastric ulcer) PROCEDURE: EGD with biopsy and vascular clip placement SURGEON: Ginny Gonzalez ANESTHESIA TYPE: General:No Airway (see anesthesia record) ESTIMATED BLOOD LOSS: 5 PATHOLOGY: other (antrum bx) COMPLICATIONS: None DISPOSITION: PACU INDICATIONS: Ms Kim is a pleasant 66-year-old female who was admitted by the hospitalist for severe anemia after a syncopal episode at home. Her hemoglobin coming into the hospital was 6.4. She was given a couple units of blood. She was started on Protonix and Carafate. Her hemoglobin has been stable. Recommend that upper endoscopy to find the source of her bleeding and patient agreed. Risks, benefits and complications have been reviewed. Complications include but are not limited to bleeding, pain, perforation, sore throat, aspiration, and adverse reaction to the medications. Questions were entertained and answered to their satisfaction and they wished to proceed. No guarantees were given or implied. PROCEDURE START TIME: :51 FINDINGS: 2 shallow ulcers in the antrum. Old blood noted within the stomach no active bleeding. PROCEDURE DESCRIPTION: After informed consent was obtained the patient was take to the procedure room and placed in a supine position. Monitors were applied and a time out was done. The patients name, date of , procedure type, allergies to medications and metal in their body was reviewed. A bite block was placed and the patient was sedated. Once sedated and comfortable the gastroscope was advanced through the oropharynx which was grossly normal into the esophagus. The proximal and mid- esophagus were normal. In the distal esophagus there was mild inflammation noted. The scope was advanced into the stomach and through the pylorus into the 3rd portion of the duodenum. The duodenum was noted to be normal. The scope was retracted back into the stomach. Old blood was noted in the antrum. This was washed away and a shallow ulcer was noted. NO active bleeding was noted and no clot. Biopsies were done to rule out H. pylori. There was brisk bleeding from the biopsy site so 2 vascular clips were placed without difficulty. There was no bleeding after the clips had been placed. The scope was retroflexed. The cardia and fundus were noted to be normal. There was no hiatal hernia noted. The scope was retracted back into the esophagus. The Z line was regular. The GE junction was at 34 cm. The scope was removed and the patient was woken up and taken back to [facility] in stable condition. Follow up: Case discussed with Dr. Hsieh. Continue Carafate for a total of 2 weeks. Continue Protonix indefinitely.
[2021-07-13] MEDS: Protein Nutritional Supplement 16 GM 1 OUNCE PACKET PO ×2 (14:23→20:13)
--- NOTE | 2021-07-13 16:26 | W.PM.PROGNOT ---
Date of Service Date of service: 07/13/21 Time of Service: 16:26 Assessment and Plan Assessment and plan (1) Acute GI bleeding: Status: Acute Assessment and plan: patient had old blood at the base of her ulcer but had evidence of recent bleeding. her Hb has been stable at 8.4 gm since her transfusions. will cont protonix and carafate. patient will need repeat EGD in 8 weeks to assess healing. repeat her CBC in the a.m. if stable then she can be discharged once a SNF has accepted her. 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 Probably acutely exacerbated by her severe anemia. We will consult with physical therapy to evaluate and initiate treatment. CT of her head was done yesterday and showed no acute changes. (4) Myasthenia gravis: Status: Chronic Assessment and plan: She endorses NOT taking her mestinon for appx 2 months. Mestinon has been resumed. Physical therapy consulted. . (5) Protein malnutrition: Status: Acute Assessment and plan: Poor oral intake with low Total protein and albumin levels of 5.9 and 2.7 respectively. B12 levels normal at 441 pg/mL however her folate level is low at 5.6 ng/mL. Methylmalonic acid and homocystine levels have been sent out. Other vitamin levels have also been or include B1 and B2 and B3. I put her on protein supplements and of asked for nutritional consult. folic acid has been added to her regimen (6) Enterococcus UTI: Status: Acute Assessment and plan: probably d/t neurogenic bladder and incomplete emptying. urine culture grew over 100,000 CFU of Enterococcus species, sensitivity to follow however she was given Fosfomycin 3 gm orally yesterday. (7) Neurogenic bladder: Status: Acute Assessment and plan: maintain gomes catheter per Dr. Jorge, she will follow up w/ him and she can then try a voiding trial as an outpatient. If she fails this then she will likely need a suprapubic catheter. (8) Constipation, chronic: Status: Acute Assessment and plan: patient still needs an outpatient colonoscopy even though we found her source of bleeding. she never has had a c-scope and I told her that we do not want to miss a treatable colon polyp just because we stopped looking after finding an gastric ulcer as the source of her acute bleeding. She can follow up as outpatient w/ Dr. Gonzalez for this. We will keep her on a bowel regimen. she probably has neurogenic bowel (9) Peripheral neuropathy: Status: Acute Assessment and plan: Cont gabapentin (10) Chronic pain: Status: Chronic Assessment and plan: Cont Fentanyl patches. (11) Hypertension: Status: Chronic Assessment and plan: Presented with hypotension. BP are improving however will Continue to hold her lisinopril/HCTZ for now. (12) COPD (chronic obstructive pulmonary disease): Status: Chronic Assessment and plan: No pulmonary complaints or symptoms. Not on inhalers. (13) Chronic kidney disease: Status: Chronic Assessment and plan: Creatinine elevated over baselin of appx 1.0; 1.7 on admission. Now 1.3. Hold lisinopril/HCTZ. Monitor. (14) Discharge planning issues: Status: Acute Assessment and plan: Pt is a DNR/DNI Palliative care pt. order was placed for palliative care consult July 08, 2021. Consult is still pending at this time. Care management; assist patient with home care vs placement options. Subjective Subjective Interval history since last seen: Missy had her EGD today and this showed her to have a gastric ulcer in the antrum w/ some old blood. The ulcer was biopsied and she had some bleeding that was controlled w/ a clip. Patient doing well post endoscopy. She is currently on carafate and protonix. We will continue the same. She is currently interested in a SNF short term to regain her strength and improve her mobility. She now recognizes that she probably would be better in an assisted living facility rather than returning home. Exam Narrative Exam Narrative: alert/oriented x 3, pleasant, no distress abdomen: normal bowel sounds, soft, nondistended, nontender to palpation gomes: draining clear yellow urine Objective Last Vital Signs Temp 36.3 C L 07/13/21 11:50 Pulse 87 07/13/21 11:50 Resp 20 07/13/21 11:50 BP 123/72 07/13/21 11:50 Pulse Ox 94 07/13/21 11:50 Laboratory Results - last 24 hr 07/12/21 07/13/21 07/13/21 06:46 06:25 06:25 WBC 5.10 RBC 3.26 L Hgb 8.4 L Hct 26.9 L MCV 82.5 MCH 25.8 L MCHC 31.2 L RDW 14.9 H Plt Count 402 H MPV 9.4 Immature Gran % 0.4 Neutrophils % 62.2 Lymphocytes % 18.2 Monocytes % 14.1 Eosinophils % 4.5 Basophils % 0.6 Nucleated RBC % 0 Absolute Neutrophils 3.17 Absolute Lymphocytes 0.93 L Absolute Monocytes 0.72 Absolute Eosinophils 0.23 Absolute Basophils 0.03 Sodium 140 Potassium 3.9 Chloride 107 Carbon Dioxide 25.6 Anion Gap 7.4 BUN 34 H Creatinine 0.9 Estimated GFR/1.73 m2 >= 60.00 Glucose 81 Calcium 8.7 Homocysteine 17.6 H
--- NOTE | 2021-07-13 16:58 | PT.INTREAT ---
Date of service: 07/13/21 Time of Service: 10:07 PT Notes Visit Reasons: Blood Loss Anemia Inpatient Physical Therapy Treatment Note [facility] Date: 07/13/2021 PRECAUTIONS: Activity as Tolerated, wheelchair bound, non-ambulatory SUBJECTIVE: Missy is hesitant to complete transfer training, although eventually agrees. OBJECTIVE: PAIN: No c/o pain BED MOBILITY/TRANSFERS Supine-sit: Min A Sit-supine: Mod a x2 Sit-stand: Mod A Stand-sit: Mod A Stand pivot transfer bed?stretcher with Mod A. THEREX: Patient was instructed in a LE and UE strengthening program, completed in a long-sitting and seated (at EOB) position as per flow sheet. She continues to demonstrate global weakness, requiring assist to complete LE exercises. ASSESSMENT: Patient tolerated transfer training requiring Mod A. She would benefit from continued global strengthening for improved activity tolerance. PLAN: Continue with global strengthening and transfer training for continued progression toward baseline level of function. TREATMENT CODE/TIME: Session 1: 11 minutes; [id number] (10:07) Session 2: 17 minutes; [id number] (15:27)
[2021-07-13] MEDS: Normal Saline Flush 10 ML SYR IVP (20:13)
[2021-07-13] MEDS: Gabapentin 300 MG CAP 600 MG PO (20:14)
[2021-07-13] MEDS: Pantoprazole 40 MG TABCR PO (20:14)
[2021-07-13] MEDS: MacroBID 100 MG CAP PO (20:47)
[2021-07-13] MEDS: Zolpidem 10 MG TAB PO (23:09)
[2021-07-14] MEDS: Lactated Ringers 1,000 ML 100 ML IV (04:14)
[2021-07-14 06:59] LABS: Abs Immature Grans 0.03 10^3/uL (0.0-0.06); Absolute Basophil Count 0.02 10^3/uL (0.0-0.2); Absolute Eosinophil Count 0.19 10^3/uL (0.0-0.7); Absolute Lymphocyte Count 0.97 10^3/uL (1.2-3.4); Absolute Neutrophil Count 3.91 10^3/uL (1.2-6.7); Basophils % 0.3; Eosinophils % 3.3; HCT 28.4 % (36.0-46.0); HGB 8.9 g/dL (11.2-15.7); Immature Grans % 0.5; Lymphocytes % 16.7; MCH 26.1 pg (27.0-33.0); MCHC 31.3 % (32.0-36.0); MCV 83.3 fL (80-95); MPV 9.1 fL (8.0-11.0); Neutrophils % 67.2; Nucleated RBC 0 %; Platelet Count 410 10^3/uL (130-400); RBC 3.41 10^6/uL (3.93-5.22); RDW 15.2 % (11.7-14.6); RDW-SD 46.3 fL; WBC 5.82 10^3/uL (4.4-10.8)
[2021-07-14 07:19] LABS: Anion Gap 6.4 mmol/L (3-11); BUN 25 mg/dL (7-18); CO2 27.6 mmol/L (21.0-32.0); CREATININE 0.8 mg/dL (0.55-1.02); Calcium 8.7 mg/dL (8.5-10.1); Chloride 106 mmol/L (98-107); Glucose 84 mg/dL (74-106); Potassium 3.9 mmol/L (3.5-5.1); Sodium 140 mmol/L (136-145)
--- NOTE | 2021-07-14 07:37 | W.PM.PROGNOT ---
Date of Service Date of service: 07/14/21 Time of Service: 07:37 Assessment and Plan Assessment and plan (1) Enterococcus UTI: Status: Acute Assessment and plan: She has a penicillin allergy. Even though Enterococcus UTIs are generally sensitive to nitrofurantoin, this antibiotic has not been tested on her organism. I have discontinued the nitrofurantoin and started her on Cipro which has a known activity against this organism. We would usually recommend that her bladder remain decompressed with a Brar catheter for at least 3 days before giving her a voiding trial and starting timed/prompted voiding (ask the patient to attempt to void every 2 to 3 hours whether she feels the need to void or not). We can follow her residual urines with bladder scan at that time. (2) Urinary retention: Status: Acute Subjective Subjective Interval history since last seen: She is tolerating her catheter with no spasms or discomfort. Exam Narrative Exam Narrative: She looks comfortable. Her vital signs are documented elsewhere Her urine culture is growing Enterococcus which is sedative to penicillin and Cipro. Nitrofurantoin does not seem to have been tested for sensitivity. Objective Last Vital Signs Temp 36.6 C 07/13/21 23:54 Pulse 94 H 07/13/21 23:54 Resp 18 07/13/21 23:54 BP 126/84 07/13/21 23:54 Pulse Ox 92 07/13/21 23:54 Laboratory Results - last 24 hr 07/12/21 07/13/21 07/14/21 06:46 06:25 06:25 WBC RBC Hgb Hct MCV MCH MCHC RDW Plt Count MPV Immature Gran % Neutrophils % Lymphocytes % Monocytes % Eosinophils % Basophils % Nucleated RBC % Absolute Neutrophils Absolute Lymphocytes Absolute Monocytes Absolute Eosinophils Absolute Basophils Sodium 140 140 Potassium 3.9 3.9 Chloride 107 106 Carbon Dioxide 25.6 27.6 Anion Gap 7.4 6.4 BUN 34 H 25 H D Creatinine 0.9 0.8 Estimated GFR/1.73 m2 >= 60.00 >= 60.00 Glucose 81 84 Calcium 8.7 8.7 Homocysteine 17.6 H 07/14/21 06:25 WBC 5.82 RBC 3.41 L Hgb 8.9 L Hct 28.4 L MCV 83.3 MCH 26.1 L MCHC 31.3 L RDW 15.2 H Plt Count 410 H MPV 9.1 Immature Gran % 0.5 Neutrophils % 67.2 Lymphocytes % 16.7 Monocytes % 12.0 Eosinophils % 3.3 Basophils % 0.3 Nucleated RBC % 0 Absolute Neutrophils 3.91 Absolute Lymphocytes 0.97 L Absolute Monocytes 0.70 Absolute Eosinophils 0.19 Absolute Basophils 0.02 Sodium Potassium Chloride Carbon Dioxide Anion Gap BUN Creatinine Estimated GFR/1.73 m2 Glucose Calcium Homocysteine
[2021-07-14] MEDS: Docusate Sodium 100 MG/10 ML CUP PO (07:44)
[2021-07-14] MEDS: Gabapentin 300 MG CAP 600 MG PO (07:44)
[2021-07-14] MEDS: Senna TAB 2 TAB PO (07:44)
[2021-07-14] MEDS: Sucralfate 1 GM TAB PO ×3 (07:44→16:01)
[2021-07-14] MEDS: Polyethylene Glycol 3350 17 GM PACKET PO (07:45)
[2021-07-14] MEDS: Pantoprazole 40 MG TABCR PO (07:45)
[2021-07-14] MEDS: Potassium Chloride 20 MEQ TABCR PO (07:45)
[2021-07-14] MEDS: Acetaminophen 325 MG TAB 650 MG PO (07:45)
[2021-07-14] MEDS: Folic Acid 1 MG TAB PO (07:45)
[2021-07-14] MEDS: Protein Nutritional Supplement 16 GM 1 OUNCE PACKET PO ×2 (07:45→13:32)
[2021-07-14] MEDS: IRON SUCROSE COMPLEX 300 MG in Normal Saline 250 ML 167 MG IVPB (07:46)
--- NOTE | 2021-07-14 07:53 | W.PM.PROGNOT ---
Documented by User: RORY Ivy 07/14/21 08:02 Date of Service Date of service: 07/14/21 Time of Service: 07:53 Assessment and Plan Assessment and plan (1) Acute anemia: Status: Acute Assessment and plan: Ms Kim is a 66 year old female with multiple chronic medical problems, who came in for a near syncopal episode and was found to have a Hgb of 6.4. She was transfused 2 units of blood. EGD completed yesterday which was remarkable for 2 shallow ulcers in the antrum. Continue Carafate and Protonix. Continue to monitor H/H Subjective Subjective Interval history since last seen: patient reports that she is feeling very tired today. Denies any chest pain or SOB. Exam Const General: cooperative, healthy appearing and comfortable Orientation: alert and oriented x3 Resp Effort & Inspection: normal respiratory effort, no audible wheezes and no cough Objective Last Vital Signs Temp 36.6 C 07/13/21 23:54 Pulse 94 H 07/13/21 23:54 Resp 18 07/13/21 23:54 BP 126/84 07/13/21 23:54 Pulse Ox 92 07/13/21 23:54 Laboratory Results - last 24 hr 07/12/21 07/13/21 07/14/21 06:46 06:25 06:25 WBC RBC Hgb Hct MCV MCH MCHC RDW Plt Count MPV Immature Gran % Neutrophils % Lymphocytes % Monocytes % Eosinophils % Basophils % Nucleated RBC % Absolute Neutrophils Absolute Lymphocytes Absolute Monocytes Absolute Eosinophils Absolute Basophils Sodium 140 140 Potassium 3.9 3.9 Chloride 107 106 Carbon Dioxide 25.6 27.6 Anion Gap 7.4 6.4 BUN 34 H 25 H D Creatinine 0.9 0.8 Estimated GFR/1.73 m2 >= 60.00 >= 60.00 Glucose 81 84 Calcium 8.7 8.7 Homocysteine 17.6 H 07/14/21 06:25 WBC 5.82 RBC 3.41 L Hgb 8.9 L Hct 28.4 L MCV 83.3 MCH 26.1 L MCHC 31.3 L RDW 15.2 H Plt Count 410 H MPV 9.1 Immature Gran % 0.5 Neutrophils % 67.2 Lymphocytes % 16.7 Monocytes % 12.0 Eosinophils % 3.3 Basophils % 0.3 Nucleated RBC % 0 Absolute Neutrophils 3.91 Absolute Lymphocytes 0.97 L Absolute Monocytes 0.70 Absolute Eosinophils 0.19 Absolute Basophils 0.02 Sodium Potassium Chloride Carbon Dioxide Anion Gap BUN Creatinine Estimated GFR/1.73 m2 Glucose Calcium Homocysteine Documented by User: Nesha Cueto DO 07/14/21 20:20 Assessment and Plan Assessment and plan (1) Gastric ulcer: Status: Acute Assessment and plan: agree w/ above hgb 8.9 f/u pcp in 1 wk for hgb check Qualifiers: Gastric ulcer chronicity: acute Gastric ulcer complication status: with hemorrhage Qualified Code(s): K25.0 - Acute gastric ulcer with hemorrhage
--- NOTE | 2021-07-14 08:21 | CMPROGNOTE_ITS ---
- If Service Date Differs Date of service: 07/14/21 Time of Service: 08:21 Care Management Progress Note S/O: Missy was sitting in her chair when CM met with her. CM let her know that she was offered a bed at [facility] for SNF. Missy shared that she has changed her mind and no longer wants to go to a SNF. She only wants to go home with new [facility] services. CM supported patient's decision and will arrange RCT for time of discharge. A: 66 year old female admitted to [facility] on 07/09/21 for Blood Loss Anemia P: Missy understands that SNF is recommended for short or penitentiary placement at time of discharge and referrals were sent to [facility] and the [facility]. Missy wants to return home with new [facility] SN/PT/OT/PRINCIPAL HARDWARE ARCHITECT. Transportation will be via RCT, w/c assessable public bus, w/ lift assist from [facility] [employer] meeting her at home during drop off. CM will continue to support and assess for discharge needs.
--- NOTE | 2021-07-14 08:21 | PDOC.CMPRO ---
- If Service Date Differs Date of service: 07/14/21 Time of Service: 08:21 Care Management Progress Note S/O: Missy was sitting in her chair when CM met with her. CM let her know that she was offered a bed at [facility] for SNF. Missy shared that she has changed her mind and no longer wants to go to a SNF. She only wants to go home with new [facility] services. CM supported patient's decision and will arrange RCT for time of discharge. A: 66 year old female admitted to [facility] on 07/09/21 for Blood Loss Anemia P: Missy understands that SNF is recommended for short or correction placement at time of discharge and referrals were sent to [facility] and the [facility]. Missy wants to return home with new [facility] SN/PT/OT/ATTENDING PATHOLOGIST. Transportation will be via RCT, w/c assessable public bus, w/ lift assist from [facility] [employer] meeting her at home during drop off. CM will continue to support and assess for discharge needs.
[2021-07-14 08:44] VITALS: BP 137/84; PULSE 94; RESP 18; TEMP 36.5; O2SAT 93
[2021-07-14] MEDS: Ciprofloxacin 250 MG TAB PO (09:37)
--- NOTE | 2021-07-14 11:53 | PTTR_ITS ---
Date of service: 07/14/21 Time of Service: 08:56 PT Notes Visit Reasons: Blood Loss Anemia Inpatient Physical Therapy Treatment Note [facility] Date: 07/14/2021 PRECAUTIONS: Activity as Tolerated, wheelchair bound, non-ambulatory SUBJECTIVE: Missy is pleasant and agreeable to participating in PT. OBJECTIVE: PAIN: No c/o pain BED MOBILITY/TRANSFERS Supine-sit: S Sit-stand: CGA Stand-sit: CGA Bed-chair: CGA Stand pivot transfer bed?chair and chair?toilet with CGA. Static standing with FWW support and SBA x2 minutes. THEREX: Patient was instructed in a seated LE and UE strengthening program, as per flow sheet. She continues to demonstrate global weakness, requiring assist to complete LE exercises. TOILETING: Patient was incontinent of stool requiring Max A ASSESSMENT: Patient tolerated transfer training well, requiring CGA only. She was able to tolerate static standing with FWW support x2 minutes. She would b enefit from continued global strengthening for improved activity tolerance. PLAN: Continue with global strengthening and transfer training for continued progression toward baseline level of function. TREATMENT CODE/TIME: 31 minutes; [id number], [id number] (08:56)
--- NOTE | 2021-07-14 13:07 | DSE_ITS ---
Date of service: 07/14/21 Time of Service: 13:07 DS: Diagnosis Discharge Diagnosis (1) Gastric ulcer: Status: Acute Asessment and Plan: patient found to have shallow ulcer of the gastric antrum w/ some old blood from recent bleeding. Biopsy was obtained during her EGD which was done on 07/13/2021. H. pylori results are pending. Patient was started on and sent home on protonix 40 mg bid and carafate 1 gm po AC/HS. She was also found to be folate deficient and put on folic acid 1 mg daily. Her iron deficiency anemia was treated w/ transfusion of 2 units of PRBC, (given 1 unit at a time on 07/09 and 07/10). Patient will need to follow up w/ Dr. Gonzalez in 8 weeks. Also the patient should have a colonoscopy as she has never had one in her life. The finding of PUD does not preclude the possibility of colon pathology as a contributor to her blood loss anemia. She received venofer parenteral iron while hospitalized (she was not given oral iron due to chronic constipation and due to her recent ulcer as oral iron would be too harsh). (2) Blood loss anemia: Status: Acute Asessment and Plan: as above. Patient was advised to stop taking her aspirin and to avoid any NSAIDS (3) Enterococcus UTI: Status: Acute Asessment and Plan: treated w one time dose of Fosfomycin 3 gm. (4) Neurogenic bladder: Status: Acute Asessment and Plan: Patient had high post void urinary residuals of over 900 mL. Gomes was placed and urology consult was obtained w/ Dr. Jorge. See his notes for details. Patient was sent home w/ a gomes catheter in place. A voiding trial will be performed in follow up office visit w/ Dr. Jorge in the next week. (5) Discharge planning issues: Status: Resolved Asessment and Plan: SNF placement for rehab was recommended by P.T. and offered to the patient but she declined this option electing to return home w/ home health services including nursing, P.T. and O.T. and M.S.W. Discharge Plan Disposition Patient Disposition: HOME W/HOME HEALTH SERVICE Condition: Improving Discharge Details Reason For Visit: Blood Loss Anemia Admit Date/Time: 07/09/21 14:09 Admit Provider: Ruddy Landeros Attending Provider: Ruddy Landeros Primary Care Provider: Prashanth Thayer Hospital Course Hospital Course: 66 yo female with a PMH of myesthenia gravis, spinal cord syrinx with decompression, chronic constipation / narcotic bowel, HTN, HLD, COPD, peripheral neuropathy, chronic renal insuff., gluten intolerance, chronic pain, migraine MUÑOZ, previous alcohol abuse and tobacco abuse syndromes, depression/anxiety. Patient presented to the ER after syncope while performing digital rectal disimpaction which she does for her neurogenic bowels. Evaluation in the ER revealed heme positive brown stools and a microcytic anemia w/ Hb of 6.4 gm. UA demonstrated pyuria, hematuria and bacteriuria and her BUN and creatinine were elevated at 46 and 1.7 respectively (baseline is creatinine of 1.1). Patient was transfused 2 units of blood from 07/09 and 07/10 and she was put on protonix and carafate empirically. Post transfusion her Hb came up to 7.4 after the first unit and up to 8.1 gm after the second unit. Surgery was consulted. Because of urinary retention she required gomes catheter after having to be straight cathed for large post void residual of over 900 mL. Urine culture grew Enterococcus faecalis for which she was treated w/ Fosfomycin due to her PCN allergy. Dr. Jorge was consulted from urology. See his notes for his recommendations which included leaving her gomes in for now and treat her UTI and have her follow up for outpatient voiding trial. He indicated that she may need a suprapubic catheter. Dr. Ginny Gonzalez from surgery saw the patient in consultation and performed an EGD on Friday 07/13 which demonstrated a shallow gastric ulcer along the antrum which she biopsied for H. pylori (results are pending). The patient had some bleeding after the biopsy but Dr. Gonzalez controlled this w/ clips. Patient was treated w/ parenteral iron sucrose (venofer) 300 mg daily x 3 days and her Hb came up to 8.9 gm at the time of her discharge from the hospital. The patient's generalized weakness was attributed to combination of her anemia, her lack of taking her mestinon for two months and her general health from her neurologic conditions and poor oral intake. With proper nutrition, transfusion of blood and working w/ physical therapy the patient improved and she wanted to return home although P.T. had recommended a SNF for short term rehab. The patient initially was willing to accept a SFN and CM worked on making referrals but in the end the patient opted to return home with nursing services, home P.T. and home O.T. Follow up should be w/ Dr. Flores in 8 weeks regarding her PUD and she should see Dr. Jorge next week. Repeat labs should be done in one week to include a repeat CBC. Patient was found to be folate deficient and was put on folic acid supplements. She was prescribed protonix and carafate which she should continue until her PUD is healed. Home Meds and New Rx's Prescriptions: New pantoprazole 40 mg Tablet,Delayed Release (Dr/Ec) See Rx Instructions .ROUTE .COMPLEX Qty: 42 RF: 0 sucralfate [Carafate] 100 mg/mL suspension 10 ml PO QACHS Qty: 1000 RF: 1 polyethylene glycol 3350 17 gram Powder In Packet 17 g PO DAILY 30 Days Qty: 30 RF: 0 folic acid 1 mg Tablet 1 mg PO DAILY AM Qty: 30 RF: 0 Phlexy-Vits Packet 1 oz PO TID Qty: 90 RF: 0 lisinopril 5 mg tablet 5 mg PO DAILY Qty: 30 RF: 0 Continued gabapentin 300 mg capsule 300 mg PO DIRECTED Qty: 450 RF: 3 pyridostigmine bromide [Mestinon Timespan] 180 mg tablet extended release 180 mg PO DAILY Qty: 90 RF: 3 sennosides 8.6 mg tablet 8.6 mg PO BID PRNRF: 0 zolpidem [Ambien] 5 mg tablet 5 mg PO QHS PRN (Reason: insomnia) RF: 0 acetaminophen 500 mg tablet 1,000 mg PO TID PRN PRN (Reason: pain) Qty: 90 RF: 0 ondansetron 4 mg tablet,disintegrating 4 mg PO Q8H PRN (Reason: nausea and vomiting) Qty: 30 RF: 3 fentanyl 12 mcg/hr patch 72 hour 1 patch transdermal Q72H MDD 12 mcg/hr Qty: 7 RF: 0 lidocaine [Lidoderm] 5 % adhesive patch,medicated 1 patch topical DAILY PRN (Reason: pain) Qty: 30 RF: 5 fentanyl 25 mcg/hr patch 72 hour 1 patch transdermal Q72H MDD 37 mcg/hr Qty: 10 RF: 0 Discontinued omeprazole 20 mg capsule,delayed release(DR/EC) 20 mg PO DAILY Qty: 30 RF: 2 potassium chloride [Klor-Con M20] 20 MEQ tablet,ER particles/crystals 20 meq PO DAILY RF: 0 lisinopril-hydrochlorothiazide [Zestoretic] 1 EACH tablet 1 tab-cap PO DAILY RF: 0 aspirin 81 mg tablet 81 mg PO DAILY RF: 0 Discharge Instructions Instructions: Peptic Ulcer (DC), Diet for Stomach Ulcers and Gastritis (ED), Iron Rich Diet (GEN) Stand Alone Forms: Nursing Discharge Form Referrals: Prem Jorge MD [ [facility] STAFF PHYSICIAN] - 08/12/21 1:00 pm Ginny Gonzalez MD [ [facility] STAFF PHYSICIAN] - 08/13/21 10:00 am Prashanth Thayer PA [Primary Care Provider] - 07/31/21 10:15 am Activity:: Activity as Tolerated Equipment/Supplies:: No Equipment Needed Diet:: Normal Diet Discharge Orders Discharge Orders: Discharge Order (Routine); Ordered 07/14/21 Ordered By: Lucio Hsieh Discharge Data Discharge Date/Time-TO BE ENTERED AT DEPARTURE: 07/14/21 17:05 DS: Summary Time Spent with Patient providing and/or coordinating discharge services: Greater than 30 minutes Status at Discharge Functional status at discharge: wheelchair bound Overall status at discharge: patient is progressing back to baseline Mental Status: mental status grossly normal Speech and Movement: speech and movement normal Mood: congruent mood Affect: normal affect Exam Narrative Exam Narrative: alert/oriented x 3, pleasant, no distress abdomen: normal bowel sounds, soft, nondistended, nontender to palpation gomes: draining clear yellow urine Psych Mental Status: mental status grossly normal Speech and Movement: speech and movement normal Mood: congruent mood Affect: normal affect DS: Data Vitals/I&O Vitals and I&O: Vital Signs Temperature 36.5 C 07/14/21 08:44 Temperature Source Tympanic 07/14/21 08:44 Pulse 94 H 07/14/21 08:44 Pulse Rhythm Regular 07/14/21 10:22 Pulse 88 07/09/21 14:47 Respiratory Rate 18 07/14/21 08:44 Respiratory Effort Non-Labored 07/14/21 10:22 Respiratory Depth Normal 07/14/21 10:22 Respiratory Pattern Normal 07/14/21 10:22 Blood Pressure 137/84 07/14/21 08:44 Blood Pressure Mean 66 07/09/21 14:47 Blood Pressure Position Sitting 07/09/21 12:24 Pulse Oximetry 93 07/14/21 08:44 Oxygen Delivery Method Room Air 07/14/21 08:44 Oxygen Flow Rate 0 07/14/21 08:44 Pain Level 2 07/14/21 10:22 Comment 07/11/21 11:30 Intake & Output 07/13/21 07/14/21 07/14/21 23:59 11:59 23:59 Intake Total 925 / 2045.000 1131.667 / 1131.667 Output Total 700 / 2275 1999 Balance 225 / -230.000 -868.333 / -868.333 Weight 72.1 kg Intake: IV 445 / 1565.000 781.667 / 781.667 Oral 480 / 480 350 / 350 Output: Urine 700 / 2275 1999 Other: Urine Color Yellow Yellow Urine Appearance Clear Clear Stool Size Smear Copious Stool Characteristics Brown Formed Brown Data Completed and Pending Labs on day of discharge: Labs from last 24 hours 07/14/21 07/14/21 06:25 06:25 WBC 5.82 RBC 3.41 L Hgb 8.9 L Hct 28.4 L MCV 83.3 MCH 26.1 L MCHC 31.3 L RDW 15.2 H Plt Count 410 H MPV 9.1 Immature Gran % 0.5 Neutrophils % 67.2 Lymphocytes % 16.7 Monocytes % 12.0 Eosinophils % 3.3 Basophils % 0.3 Nucleated RBC % 0 Absolute Neutrophils 3.91 Absolute Lymphocytes 0.97 L Absolute Monocytes 0.70 Absolute Eosinophils 0.19 Absolute Basophils 0.02 Sodium 140 Potassium 3.9 Chloride 106 Carbon Dioxide 27.6 Anion Gap 6.4 BUN 25 H D Creatinine 0.8 Estimated GFR/1.73 m2 >= 60.00 Glucose 84 Calcium 8.7 Preliminary micro results at discharge 07/12/21 11:10 Urine Culture - Preliminary Urine - Clean Catch Enterococcus Faecalis [facility] Active Problem List (Updated 07/14/21 @ 22:20 by Lucio Hsieh) Enterococcus UTI (Acute) Gastric ulcer (Acute) Neurogenic bladder (Acute) Pyuria (Acute) Urinary retention (Acute) Protein malnutrition (Acute) Acute anemia (Acute) Generalized weakness (Acute) Acute GI bleeding (Acute) Blood loss anemia (Acute) DNI (do not intubate) (Acute) DNR (do not resuscitate) (Acute) POLST (Physician Orders for Life-Sustaining Treatment) (Acute) Constipation, chronic (Acute) Former smoker (Acute) Spinal stenosis (Acute) Urinary frequency (Chronic) Frequent falls (Acute) Ataxia (Acute) Left hand weakness (Acute) Hypokalemia (Acute) Peripheral neuropathy (Acute) Arachnoid cyst (Acute) Chronic renal insufficiency (Acute) Dental caries (Acute) History of gluten intolerance (Acute) Bunion of unspecified foot (Acute) Blurred vision (Acute) Prediabetes (Acute) Pain (Acute) Chronic pain (Chronic) Weakness (Acute) Spasticity (Acute) Asymptomatic microscopic hematuria (Acute) Left arm weakness (Acute) Neuropathic pain of both legs (Chronic) Myasthenia gravis (Chronic) Migraine headache without aura (Chronic) GERD (gastroesophageal reflux disease) (Chronic) Syrinx of spinal cord (Chronic) Intracranial arachnoid cyst (Chronic) Hyperlipidemia (Chronic) Hypertension (Chronic) COPD (chronic obstructive pulmonary disease) (Chronic) Chronic kidney disease (Chronic) Insomnia (Chronic) Anxiety (Chronic) Depression (Chronic) Medical History (Updated 07/14/21 @ 22:20 by Lucio Hsieh) History of lacunar cerebrovascular accident Surgical History H/O craniotomy ; L cerebellar arachnoid cyst drain with shunt placement H/O thymectomy 1980s S/P appendectomy S/P cystourethroscopy with dilation of urethral stricture S/P tonsillectomy Family History Mother Diabetes Father Neuropathy Back problem Brother Myasthenia gravis Social History Smoking/Tobacco Use Status: Former Tobacco Use Smoking risk assessment performed?: Yes Alcohol Intake: former Drug use: Never Details: Patient states that she has felt suicidal for a while now but it is worse. She states that she does not currently have a plan Household members: other Housing: usp Number of Children: 0 Pets and animals: No What type of physical activity do you participate in: none Seatbelt use: always Do you feel safe at home: No Do you feel safe in your relationship?: Yes Additional Social history: She does not drive.
--- NOTE | 2021-07-14 13:08 | PDOC.HHF2F_ITS ---
Home Health Certification Home Health Certification: 1. Encounter Date and Reason I certify that Missy Kim was seen by Lucio Hsieh on 07/14/21 and that I had a [id number] encounter with this patient that meets the physician face to face encounter requirements. 2. Clinical Findings Supporting Skilled Need and Homebound Status I certify that home health services are medically necessary, include either intermittent shelter and/or physical/speech therapy, and that this patient is homebound in that absences from the home require considerable and taxing effort and are infrequent or of short duration, or are attributable to the need to receive medical care. [X] (a) Attached documentation from encounter provides clinical findings supporting skilled need and homebound status (including what assistance patient requires to leave the home). The encounter with the patient was in whole, or in part, for the following medical condition, which is the primary reason for home health care: Blood Loss Anemia Retirement: evaluate and treat for acute blood loss anemia from UGI bleeding from gastric ulcer Physical Therapy: P.T. and O.T. to evaluate and treat for general weakness and deconditioning and decreased ADL performance d/t acute blood loss anemia Speech Therapy: Homebound: acute blood loss anemia in setting of myesthenia gravis has compromised patient's health making travel outside her home hazardous to her condition 3. Certification and Authentication I certify that I composed the above information based on my clinical judgement relating to this patient's medical condition and, if applicable, clinical findings communicated to me by the NPP or inpatient physician who performed the Home Health Referral. All further orders will be obtained through ___Prashanth Thayer (Community Based Physician - PCP)
[2021-07-14] MEDS: Gabapentin 300 MG CAP PO (13:32)
--- NOTE | 2021-07-14 14:43 | CHAPLAIN ---
Missy was up in the chair when I visited. She was tearful and apologized for that, telling me she was't sure what was making her teary, although she has some decisions to make about going home alone, to her apartment at the [facility], or pursuing a stay in a rehab. She is always in her wheelchair, but is able to transfer she said. She has fallen recently and the last time she feel, she had passed out she said, and this was concerning. When I asked with whom she usually consults for decisions like this, she said no one. Her brother lives in [place]. (according to Care Management notes, she keeps in touch with a sister in law in [place]) Missy was raised in [place] as a young girl. 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 Her brother did the same as an adult. She attended boarding school with other English kids in [place]. She said she knows that God has stood by her and helped her deal with difficulties in the past. I will continue to visit.
--- NOTE | 2021-07-14 16:03 | PDOC.CMDIS ---
- If Service Date Differs Date of service: 07/14/21 Time of Service: 16:03 LACE Index Scoring Tool - Questions: Length of Stay (in days): 4 - 6 Acuity (Admit via E.D.?): Yes Comorbidities: Cerebrovascular Disease, Chronic Pulmonary Disease, Mild Liver/Renal Disease E.D. Visits: 3 - Answers: Total Score: 15 Risk of Readmission: High Risk Care Management Discharge Reason for Hospitalization: Blood loss anemia Discharge Plan: Discharge home with new [facility] SN/PT/OT/HOSPITAL SOCIAL WORKER. Transportation will be via [facility], w/c assessable public bus, w/ lift assist from [facility] Department which will meet her at home during drop off. Patient will follow up with her community providers and discharge plan of care as prescribed. Patient/Family Education Needs: Review discharge instructions, limitations and plan to follow up with community providers. ask me three. Also, new RX's have been sent to her pharmacy, per pt her friend will pick them up for her today. Services Needed at Discharge: Home Health Care Services (New [facility] RN/PT/OT/HOSPITAL SOCIAL WORKER. notified [facility]), Transportation (Via [employer] Shuttle Bus, with lift assist from [facility] Dept: arranged by TOMMY)
[2021-07-15 08:32] LABS: Thiamine (Vitamin B1), WB 76 nmol/L (70-180)
--- NOTE | 2021-07-15 09:13 | PT.INDS ---
Date of service: 07/15/21 PT Notes Visit Reasons: Blood Loss Anemia Inpatient Physical Therapy Discharge Summary Date: 07/15/21 Dates of Service: 07/11/2021 through 07/14/2021 This is a clinical summary of care provided for the duration of dates listed above. No charge was made in the completion of this documentation. Referring Doctor: Jeff Hsieh MD PT Orders: PT CONSULT: Evaluate and Treat Precautions: Standard. Activity as tolerated. Patient Profile/Admitting Diagnosis: Orders received for this 66-year-old female with a history of myasthenia gravis, spinal cord decompression, and a host of multiple other health ailments. Patient states that she is nonambulatory at baseline and was performing a digital rectal disimpaction which is a regular occurrence for chronic constipation. Apparently during this episode of care she was having some dizziness and ended up passing out. She was taking the emergency department with a sudden episode of syncope PMHX: Active Problem List DNI (do not intubate) (Acute) DNR (do not resuscitate) (Acute) POLST (Physician Orders for Life-Sustaining Treatment) (Acute) Constipation, chronic (Acute) Former smoker (Acute) Spinal stenosis (Acute) Urinary frequency (Acute) Frequent falls (Acute) Ataxia (Acute) Left hand weakness (Acute) Hypokalemia (Acute) Peripheral neuropathy (Acute) Arachnoid cyst (Acute) Chronic renal insufficiency (Acute) Dental caries (Acute) History of gluten intolerance (Acute) Bunion of unspecified foot (Acute) Blurred vision (Acute) Prediabetes (Acute) Pain (Acute) Chronic pain (Chronic) Weakness (Acute) Spasticity (Acute) Asymptomatic microscopic hematuria (Acute) Left arm weakness (Acute) Neuropathic pain of both legs (Chronic) Myasthenia gravis (Chronic) Migraine headache without aura (Chronic) GERD (gastroesophageal reflux disease) (Chronic) Syrinx of spinal cord (Chronic) Intracranial arachnoid cyst (Chronic) Hyperlipidemia (Chronic) Hypertension (Chronic) COPD (chronic obstructive pulmonary disease) (Chronic) Chronic kidney disease (Chronic) Insomnia (Chronic) Anxiety (Chronic) Depression (Chronic) Medical History History of lacunar cerebrovascular accident Urinary retention Surgical History H/O craniotomy ; L cerebellar arachnoid cyst drain with shunt placement H/O thymectomy 1980s S/P appendectomy S/P cystourethroscopy with dilation of urethral stricture S/P tonsillectomy Social History/Home Situation: Patient lives at home alone. She has a wheelchair and has previously lived independently with some help from family and friends Equipment Owned/DME: Wheelchair Subjective: NT. See most recent PROCESS LINE OPERATOR notes. Objective: NT. See most recent PROCESS LINE OPERATOR notes. Mental Status: NT. See most recent PROCESS LINE OPERATOR notes. Pain: NT. See most recent PROCESS LINE OPERATOR notes. ROM: Right Upper Extremity: WFL Left Upper Extremity: WFL Right Lower Extremity: Patient has hip flexion to 90 degrees, knee extension to 0, knee flexion to 110, ankle ROM WFL Left Lower Extremity: Patient has hip flexion to 90 degrees, knee extension to 0, knee flexion to 110, ankle ROM WFL Strength: Right Upper Extremity: Grossly 4+ out of 5 Left Upper Extremity: Grossly 4+ out of 5 Right Lower Extremity: Hip flexion 3+ out of 5, quadriceps 3+ out of 5, hamstrings 3+ out of 5, ankle dorsiflexion 3+ out of 5, ankle plantarflexion 3+ out of 5 Left Lower Extremity: Hip flexion 3+ out of 5, quadriceps 3+ out of 5, hamstrings 3+ out of 5, ankle dorsiflexion 3+ out of 5, ankle plantarflexion 3+ out of 5 Bed Mobility/Transfers: Moderate assistance Supine-sit: Supervision Sit-stand: Contact-guard assist Stand-sit: Contact-guard assist Gait: Non-ambulatory. Wheelchair-bound. Balance: Static Sitting: Good Dynamic Sitting: Fair Static Standing: Poor Dynamic Standing: Poor ASSESSMENT: Patient demonstrates functional mobility improvement and has achieved the goals below. Patient will benefit from retirement facility placement for continued skilled physical therapy services in order to progress mobility level, strength, and balance in preparation for a safe discharge to home. Goals: Goals X1 week 1. Supine-Sit CGA MET 2. Sit-Supine CGA MET 3. Sit-Stand Min A MET 4. Stand-Sit Min A MET 5. Bed-Chair Moderate A MET DISCHARGE RECOMMENDATIONS: ( ) Home with no services ( ) Home with services [specify] ( ) Home with outpatient PT ( X ) SNF for continued rehabilitation. Patient will benefit from retirement facility placement for continued skilled physical therapy services in order to progress mobility level, strength, and balance in preparation for a safe discharge to home. ( ) Shelter Care ( ) SNF versus LTC based on ability to participate and progress TREATMENT CODE/TIME: NC. Thank you for the opportunity to participate in the care of this patient. Ching Viveros PT, DPT, CLT [facility] [place], [place]
[2021-07-16 12:38] LABS: Riboflavin (Vitamin B2), P 5 mcg/L (1-19)
[2021-07-16 13:25] LABS: Methylmalonic Acid 0.11 nmol/mL (<=0.40)
[2021-07-20 15:52] LABS: Niacin (Vitamin B3), Plasma 2.59 ug/mL
--- NOTE | 2021-07-21 14:22 | PDOC.ERCMACT ---
- If Service Date Differs Date of service: 07/21/21 Time of Service: 14:22 Care Management Activity Note TOMMY received a telephone call from Missy, who was inpatient from 07/09/21 through 07/14/21. Missy reports she was prescribed sucralfate (Carafate) 100 mg/mL suspension and Phlexy-Vits Packet at discharge but she has been unable to have those prescriptions filled. The sucralfate in liquid form apparently requires a pre-authorization and [facility], patient's pharmacy, is unable to obtain the Phlexy-Vits Packet. CM completed a pre-authorization request for the sucralfate but because it can take up to 72 hours to get a determination from the insurance company, CM contacted the urgent care physician assistant at [facility] to enlist their help in prescribing the sucralfate in pill form and in finding a substitute to the Phlexy-Vits Packet.
== END 2021-07-14 17:05 | disposition home health service (06) | DRG 378 ==
LOC: ER 14:16 → MS 15:12
PROVIDERS: Internal Medicine; Surgery; Admitting Provider Family Medicine; Emergency Provider Physician Assistant; PCP Nurse Practitioner Family; Visit Provider Family Medicine
PROC: 0DJ68ZZ Inspection of Stomach, Via Natural or Artificial Opening Endoscopic (ICD-10-PCS; CPT 43235; principal; 2021-07-13 09:30)
DX: K25.0 Acute gastric ulcer with hemorrhage (principal); G95.89 Other specified diseases of spinal cord; K59.2 Neurogenic bowel, not elsewhere classified; E46 Unspecified protein-calorie malnutrition; D62 Acute posthemorrhagic anemia; N39.0 Urinary tract infection, site not specified; K59.09 Other constipation; R53.1 Weakness; Z99.3 Dependence on wheelchair; G70.00 Myasthenia gravis without (acute) exacerbation; J44.9 Chronic obstructive pulmonary disease, unspecified; I10 Essential (primary) hypertension; E78.5 Hyperlipidemia, unspecified; K21.9 Gastro-esophageal reflux disease without esophagitis; M48.00 Spinal stenosis, site unspecified; G43.909 Migraine, unspecified, not intractable, without status migrainosus; Z66 Do not resuscitate; Z87.891 Personal history of nicotine dependence; R29.6 Repeated falls; Z91.81 History of falling; R27.0 Ataxia, unspecified; G62.9 Polyneuropathy, unspecified; N18.9 Chronic kidney disease, unspecified; R73.03 Prediabetes; G89.29 Other chronic pain; F41.9 Anxiety disorder, unspecified; F32.A Depression, unspecified; Z86.73 Personal history of transient ischemic attack (TIA), and cerebral infarction without residual deficits; F10.11 Alcohol abuse, in remission; Z68.27 Body mass index [BMI] 27.0-27.9, adult; R35.0 Frequency of micturition; R33.9 Retention of urine, unspecified; Z98.2 Presence of cerebrospinal fluid drainage device; B95.2 Enterococcus as the cause of diseases classified elsewhere
CPT/HCPCS: 43255; 43239; 36415; 36430; 80048; 80053; 80186; 83090; 84252; 84591; 85027; 86850; 86900; 86901; 86920; 87077; 87635; 88305; 93005; 96361; 96374; 96375; 97110; 97163; 97530; 99222; 99232; 99285; 70450; 71045; 81003; 81015; 82272; 82607; 82746; 83540; 83550; 83735; 83880; 84425; 84484; 85014; 85018; 85025; 85610; 87086; 87186; 93010; 99223; 99233; 99239; J1756; J1941; J2001; J3490; P9016

== ENCOUNTER → 2021-07-13 07:47 | Outpatient (BNVA) | payer MEDICARE, SELFPAY | PROVIDERS: PCP Nurse Practitioner Family; Referring Provider Nurse Practitioner Family; Visit Provider Urology | DX: R69 Illness, unspecified (principal) ==

== ENCOUNTER → 2021-07-22 00:45 | Outpatient (CLI) | payer MEDICARE, SELFPAY ==
--- NOTE | 2021-07-22 13:00 | DI.US_ITS ---
Exam(s) US RENAL EXAM: US RENAL CLINICAL HISTORY: URINARY RETENTION R33.9. TECHNIQUE: Wagoner scale, color and spectral Doppler were used. COMPARISON: CT ABD/PELVIS WO W CONTRAST from 03/07/2018 CT ABD/PELVIS WO W CONTRAST from 03/07/[address] ABDOMEN PELVIS W from 03/24/[address] ABDOMEN PELVIS W from 03/24/2021 FINDINGS: Renal size in cm: Right: 10.5. Left: 11.2. Echogenicity: Normal. Hydronephrosis: There is mild prominence of both renal pelves. They have a similar appearance compar ed to the CT scans of the abdomen and pelvis from 03/07/2019 and 03/24/2021. These likely reflect bila teral extrarenal pelves. No definite hydronephrosis. Cyst or mass: There is a stable simple cyst on the right kidney. No follow-up is recommended. Nephrolithiasis: No. Other findings: None. Bladder:Patient has a Brar catheter in place. The urinary bladder was not distended. Renal color flow: Symmetric and within normal limits. IMPRESSION: 1. Mild prominence of both renal pelves likely reflecting extrarenal pelves. These have a similar ap pearance compared to prior CT scans. 2. The urinary bladder cannot be evaluated. The patient has a Brar catheter and the bladder was emp ty. DATA REPOSITORY:
== END ==
PROVIDERS: PCP Nurse Practitioner Family; Visit Provider Nurse Practitioner Family
DX: R33.9 Retention of urine, unspecified (principal)
CPT/HCPCS: 76770

== ENCOUNTER → 2021-08-12 12:42 | Outpatient (BNVA) | payer MEDICARE, SELFPAY | PROVIDERS: PCP Nurse Practitioner Family; Referring Provider Nurse Practitioner Family; Visit Provider Nurse Practitioner Gerontology | DX: N31.9 Neuromuscular dysfunction of bladder, unspecified (principal); R33.9 Retention of urine, unspecified; R31.21 Asymptomatic microscopic hematuria | CPT/HCPCS: 99214 ==

== ENCOUNTER → 2021-08-31 14:03 | Outpatient (BNVA) | payer OTHER, SELFPAY | PROVIDERS: PCP Nurse Practitioner Family; Referring Provider Nurse Practitioner Family; Visit Provider Nurse Practitioner Gerontology | DX: N31.9 Neuromuscular dysfunction of bladder, unspecified (principal); R33.9 Retention of urine, unspecified; R31.21 Asymptomatic microscopic hematuria; R60.0 Localized edema | CPT/HCPCS: 99214 ==

== ENCOUNTER → 2021-09-08 13:45 | Outpatient (BNVA) | payer OTHER, SELFPAY | PROVIDERS: PCP Nurse Practitioner Family; Referring Provider Nurse Practitioner Family; Visit Provider Surgery | DX: K25.0 Acute gastric ulcer with hemorrhage (principal); K21.9 Gastro-esophageal reflux disease without esophagitis; F41.9 Anxiety disorder, unspecified | CPT/HCPCS: 99213; 99214 ==

== ENCOUNTER → 2021-09-17 12:51 | Outpatient (BNVA) | payer OTHER, SELFPAY | PROVIDERS: PCP Nurse Practitioner Family; Referring Provider Nurse Practitioner Family; Visit Provider Nurse Practitioner Gerontology | DX: R33.9 Retention of urine, unspecified (principal); N31.9 Neuromuscular dysfunction of bladder, unspecified; R31.21 Asymptomatic microscopic hematuria | CPT/HCPCS: 51702; 99214 ==

== ENCOUNTER 2021-09-28 18:41 | Outpatient (REF) | payer OTHER, SELFPAY ==
[2021-09-28 17:47] LABS: HCT 44.8 % (36.0-46.0); MCH 26.4 pg (27.0-33.0); MCHC 31.3 % (32.0-36.0); MCV 84.4 fL (80-95); RBC 5.31 10^6/uL (3.93-5.22); WBC 5.52 10^3/uL (4.4-10.8)
[2021-09-28 17:48] LABS: Absolute Basophil Count 0.04 10^3/uL (0.0-0.2); Absolute Eosinophil Count 0.02 10^3/uL (0.0-0.7); Absolute Lymphocyte Count 0.88 10^3/uL (1.2-3.4); Absolute Monocyte Count 0.44 10^3/uL (0.1-0.8); Absolute Neutrophil Count 4.13 10^3/uL (1.2-6.7); Basophils % 0.7; Eosinophils % 0.4; Immature Grans % 0.2; Lymphocytes % 15.9; MPV 9.9 fL (8.0-11.0); Neutrophils % 74.8; Nucleated RBC 0 %; Platelet Count 281 10^3/uL (130-400); RDW 14.8 % (11.7-14.6); RDW-SD 45.9 fL
[2021-09-28 18:03] LABS: Anion Gap 3.7 mmol/L (3-11); BUN 17 mg/dL (7-18); CO2 31.3 mmol/L (21.0-32.0); Calcium 9.4 mg/dL (8.5-10.1); Chloride 101 mmol/L (98-107); Estimated GFR 55.47 (mL/min/1.73m2); Glucose 96 mg/dL (74-106); Potassium 4.2 mmol/L (3.5-5.1); Sodium 136 mmol/L (136-145)
[2021-09-28 18:27] LABS: Hemoglobin A1C 5.5 % (<5.7)
== END 2021-09-28 18:42 | disposition home or self-care (01) ==
LOC: NCHCN 18:41
PROVIDERS: PCP Nurse Practitioner Family; Visit Provider Nurse Practitioner Family
DX: R73.03 Prediabetes (principal); N18.9 Chronic kidney disease, unspecified
CPT/HCPCS: 80048; 83036; 85025

== ENCOUNTER 2021-09-29 01:01 | Outpatient (CLI) | payer OTHER, SELFPAY ==
[2021-09-29 13:13] LABS: COVID-19 PCR Negative (Negative)
[2021-09-29 14:07] LABS: Source Nasal/Nares
== END 2021-09-29 01:02 | disposition home or self-care (01) ==
LOC: LBO 01:01
PROVIDERS: Surgery; PCP Nurse Practitioner Family; Visit Provider Nurse Practitioner Gerontology
DX: Z20.822 Contact with and (suspected) exposure to COVID-19 (principal); Z01.818 Encounter for other preprocedural examination
CPT/HCPCS: 87635

== ENCOUNTER 2021-10-01 07:32 | Day surgery (SDC) | payer OTHER, SELFPAY ==
[2021-10-01] VITALS (8 sets, daily range): BP systolic 156–174; BP diastolic 85–109; PULSE 80–98; RESP 14–18; TEMP 36–36.5; O2SAT 95–97; BMI 24.5
--- NOTE | 2021-10-01 08:12 | W.ANESPRE ---
General Info Date of Service Date Performed: 10/01/21 Height: 5 ft 4 in Weight: 65 kg Body Mass Index (BMI): 24.5 Surgical Procedure: Operation Date: 10/01/21 08:55 Proposed Procedure Side Surgeon p Cystoscopy/Suprapubic Tube Insertion Prem Jorge MD Meds Allergies and Home Medications Allergies Allergy/AdvReac Type Severity Reaction Status Date / Time codeine Allergy Severe pt unsure Verified 10/01/21 07:47 of reaction iodine Allergy Severe pt unsure Verified 10/01/21 07:47 of reaction Penicillins Allergy Severe Anaphylaxsi Verified 10/01/21 07:47 s Sulfa (Sulfonamide Allergy Severe Swelling/Ed Verified 10/01/21 07:47 Antibiotics) kendal trazodone AdvReac Intermediate PER PT Verified 10/01/21 07:47 MAKES HER HEART RACE. Home Medication Medication Instructions Recorded acetaminophen 500 mg tablet 1,000 mg PO TID PRN PRN #90 tab 03/13/21 sennosides 8.6 mg tablet 8.6 mg PO BID PRN 04/16/21 zolpidem 5 mg tablet (Ambien) 5 mg PO QHS PRN tab 04/16/21 lidocaine 5 % topical patch 1 patch TOPICAL DAILY PRN #30 ea 05/25/21 (Lidoderm) ondansetron 4 mg disintegrating 4 mg PO Q8H PRN #30 tab 07/03/21 tablet folic acid 1 mg tablet 1 mg PO DAILY AM #30 tab 07/14/21 lisinopril 5 mg tablet 5 mg PO DAILY #30 tab 07/14/21 nutritional supplements 1 oz PO TID #90 ea 07/14/21 (Phlexy-Vits) pantoprazole 40 mg tablet,delayed See Rx Instructions .ROUTE 07/14/21 release .COMPLEX #42 tab sucralfate 100 mg/mL oral 10 ml PO QACHS #1000 ml 07/14/21 suspension (Carafate) fentanyl 50 mcg/hr transdermal 1 patch TRANSDERMAL Q72H #10 ea 07/30/21 patch MDD 1 patch gabapentin 300 mg capsule 300 mg PO DIRECTED #450 cap 08/03/21 pyridostigmine bromide 180 mg 180 mg PO DAILY #90 tab-cap 09/09/21 tablet,extended release (Mestinon Timespan) cyclobenzaprine 10 mg tablet 10 mg PO TID 09/30/21 PFSH Active Problems Active Problems: Problem Status Onset Code Gastric ulcer K25.9 Pyuria R82.81 Protein malnutrition E46 Acute anemia D64.9 Generalized weakness R53.1 Acute GI bleeding K92.2 DNI (do not intubate) Z78.9 DNR (do not resuscitate) Z66 POLST (Physician Orders for Life-Sustaining Treatment) Z78.9 Constipation, chronic K59.09 Ataxia R27.0 Left hand weakness R29.898 Chronic renal insufficiency N18.9 Chronic pain G89.29 Asymptomatic microscopic hematuria R31.21 Myasthenia gravis G70.00 GERD (gastroesophageal reflux disease) K21.9 Intracranial arachnoid cyst G93.0 COPD (chronic obstructive pulmonary disease) J44.9 Alcohol abuse F10.10 Medical History Medical History (Updated 10/01/21 @ 08:34 by Rogers Sloan CRNA) Anxiety Arachnoid cyst Blood loss anemia Blurred vision Bunion of unspecified foot Dental caries Depression Enterococcus UTI Former smoker Frequent falls History of gluten intolerance History of lacunar cerebrovascular accident Hyperlipidemia Hypertension Hypokalemia Insomnia previous misuse of Ambien Left arm weakness Migraine headache without aura Neurogenic bladder Neuropathic pain of both legs Pain Peripheral neuropathy Prediabetes Spasticity Spinal stenosis Syrinx of spinal cord Starting at C3 and extending to T11 Urinary frequency Urinary retention Weakness Medical History Comments:: 2 person assist from Alejandra CONKLIN arm Surgical History Surgical History H/O craniotomy ; L cerebellar arachnoid cyst drain with shunt placement H/O esophagogastroduodenoscopy (~07/2021) H/O thymectomy 1980s S/P appendectomy S/P cystourethroscopy with dilation of urethral stricture S/P tonsillectomy Tobacco Smoking/Tobacco Use Status: Former Tobacco Use Alcohol Alcohol Intake: former Substance Use Substance use: Never Substance use type: does not use Vital Signs and Lab Results Vital Signs Most Recent Vital Signs in EMR: Most Recent Vital Signs Temp Pulse Resp BP Pulse Ox 36.1 C L 80 16 162/103 H 96 10/01/21 07:35 10/01/21 07:35 10/01/21 07:35 10/01/21 07:35 10/01/21 07:35 Lab Results Blood Type / Crossmatch: No Data to Display Complete Blood Count: White Blood Count 5.52 10^3/uL (4.4-10.8) 09/28/21 16:20 09/28/21 Red Blood Count 5.31 10^6/uL (3.93-5.22) H 09/28/21 16:20 09/28/21 Hemoglobin 14.0 g/dL (11.2-15.7) 09/28/21 16:20 09/28/21 Hematocrit 44.8 % (36.0-46.0) 09/28/21 16:20 09/28/21 Platelet Count 281 10^3/uL (130-400) 09/28/21 16:20 09/28/21 Complete Metabolic Panel: Sodium Level 136 mmol/L (136-145) 09/28/21 16:20 09/28/21 Potassium Level 4.2 mmol/L (3.5-5.1) 09/28/21 16:20 09/28/21 Chloride Level 101 mmol/L (98-107) 09/28/21 16:20 09/28/21 Carbon Dioxide Level 31.3 mmol/L (21.0-32.0) 09/28/21 16:20 09/28/21 Blood Urea Nitrogen 17 mg/dL (7-18) 09/28/21 16:20 09/28/21 Creatinine 1.0 mg/dL (0.55-1.02) 09/28/21 16:20 09/28/21 Estimated GFR/1.73 m2 55.47 (mL/min/1.73m2) 09/28/21 16:20 09/28/21 Calcium Level 9.4 mg/dL (8.5-10.1) 09/28/21 16:20 09/28/21 Glucose Level 96 mg/dL (74-106) 09/28/21 16:20 09/28/21 Hemoglobin A1c 5.5 % (<5.7) 09/28/21 16:20 09/28/21 Liver Function Panel: No Data to Display Coagulation Panel: No Data to Display Cardiac Panel: No Data to Display Arterial Blood Gas: No Data to Display Venous Blood Gas: No Data to Display Pancreas Panel: No Data to Display Thyroid Panel: No Data to Display Infectious Disease: Coronavirus (COVID-19)(PCR) Negative (Negative) 09/29/21 09:48 09/29/21 Coronavirus 2019 Source Nasal/Nares 09/29/21 09:48 09/29/21 Blood Cultures: No Data to Display Toxicology Panel: No Data to Display Imaging and Studies Imaging and Studies Study information below may be from another EMR and interpreted by another provider. Please see original notes in EMR for more complete details. EKG Summary: DATE/TIME OF SERVICE: 07/09/21 1317 Exam: Resting ECG Reason for Exam: syncope Patient Location: E HR:92 bpm ECG Measurements Heart Rate 92 AXIS NH 148 P 54 QRSd 79 QRS 18 QT 352 T41 QTc 436 Conclusion Sinus rhythm...normal P axis, V-rate 60- 99 Low voltage, precordial leads...precordial leads <1.0mV. Sinus. No STEMI. Anesthesia Assessment and Plan Anesthesia History Personal History: No History of Anesthesia Complications Family History: No Family History of Anesthesia Complications Exercise Tolerance Exercise Tolerance: Metabolic Equivalents<4 Pertinent Negatives Pertinent Negatives: No Symptoms of GERD and No Major Cardiovascular Symptoms or Complaints Cardiac & Pulmonary Exam Cardiac Exam: Normal S1/S2 Heart Sounds Pulmonary Exam: Clear Bilateral Breath Sounds Implantable Cardiac Device Does patient have a Pacemaker or an ICD?: No Airway Exam Known Difficult Airway: No Mallampati Class: 3 Mouth Opening: Normal (> 3cm) Thyromental Distance: Greater than 3 cm Neck Range of Motion: Full ROM Neck Circumference: Normal Teeth Condition: Generalized Poor Dentition ASA Classification ASA Score: ASA 3 Emergency Case?: No NPO Status NPO Status: NPO Clears >2 hours, Solids >8 hours Anesthesia Plan Resuscitation Status: DNR Modified During Perioperative Period Resuscitation Modifications: Pt. Requests for Clinical Judgement to be Used Anesthesia Technique: General Anesthesia Airway Planned: LMA Monitors Used: Standard Monitors Preoperative Comments:: Pt in wheelchair due to myasthenia gravis. DNR suspended during surgery, will reinstate once awake. No trouble swallowing.
[2021-10-01] MEDS: Ciprofloxacin 500 MG TAB PO (08:19)
[2021-10-01] MEDS: Lactated Ringers 1,000 ML 80 ML IV (08:19)
--- NOTE | 2021-10-01 08:29 | W.PM.HP.N ---
Date of service: 10/01/21 Time of Service: 08:31 Assessment and Plan Assessment and plan (1) Neurogenic bladder: Assessment and plan: For cystoscopy with placement of suprapubic tube History of Present Illness History of Present Illness Chief Complaint: Urinary retention Narrative: This is a 66 year old woman who has an inability to empty her bladder. She has a number of neurologic issues (Myasthenia Gravis, Intracranial arachnoid cyst, ataxia and peripheral neuropathy) making it impossible for her to perform CIC. She has had a short term urethral catheter. She presents for placement of a suprapubic tube. Review of Systems Narrative: C/o weakness. No fevers or chills No vision change No diabetes or thyroid dysfunction Shortness of breath related to COPD. No, cough or hemoptysis No chest pain or palpitations Hx GERD, constipation and GI bleed due to ulcer. No recent bleeding. No nausea, vomiting, hepatitis, jaundice No seizures, strokes No bleeding disorders No gout PFSH All Active Problems (Updated 10/01/21 @ 08:34 by Rogers Sloan CRNA) Gastric ulcer (Acute) Pyuria (Acute) Protein malnutrition (Acute) Acute anemia (Acute) Generalized weakness (Acute) Acute GI bleeding (Acute) DNI (do not intubate) (Acute) DNR (do not resuscitate) (Acute) POLST (Physician Orders for Life-Sustaining Treatment) (Acute) COLST completed 10/30/2020 with Jennifer Lugo, MAUREEN, DNR/DNI Constipation, chronic (Acute) Ataxia (Acute) Left hand weakness (Acute) Chronic renal insufficiency (Acute) Chronic pain (Chronic) Asymptomatic microscopic hematuria (Acute) Myasthenia gravis (Chronic) GERD (gastroesophageal reflux disease) (Chronic) Intracranial arachnoid cyst (Chronic) COPD (chronic obstructive pulmonary disease) (Chronic) Medical History (Updated 10/01/21 @ 08:34 by Rogers Sloan CRNA) Anxiety Arachnoid cyst Blood loss anemia Blurred vision Bunion of unspecified foot Dental caries Depression Enterococcus UTI Former smoker Frequent falls History of gluten intolerance History of lacunar cerebrovascular accident Hyperlipidemia Hypertension Hypokalemia Insomnia previous misuse of Ambien Left arm weakness Migraine headache without aura Neurogenic bladder Neuropathic pain of both legs Pain Peripheral neuropathy Prediabetes Spasticity Spinal stenosis Syrinx of spinal cord Starting at C3 and extending to T11 Urinary frequency Urinary retention Weakness Surgical History H/O craniotomy ; L cerebellar arachnoid cyst drain with shunt placement H/O esophagogastroduodenoscopy (~07/2021) H/O thymectomy 1980s S/P appendectomy S/P cystourethroscopy with dilation of urethral stricture S/P tonsillectomy Family History Mother Diabetes Father Neuropathy Back problem Brother Myasthenia gravis Social History Smoking/Tobacco Use Status: Former Tobacco Use Quit Date: 08/15/16 Smoking risk assessment performed?: Yes Alcohol Intake: former Drug use: Never Substance use type: does not use Household members: other Housing: skilled nursing Number of Children: 0 Pets and animals: No What type of physical activity do you participate in: none Seatbelt use: always Do you feel safe at home: No Do you feel safe in your relationship?: No Meds Allergies and Home Medications Allergies Allergy/AdvReac Type Severity Reaction Status Date / Time codeine Allergy Severe pt unsure Verified 10/01/21 07:47 of reaction iodine Allergy Severe pt unsure Verified 10/01/21 07:47 of reaction Penicillins Allergy Severe Anaphylaxsi Verified 10/01/21 07:47 s Sulfa (Sulfonamide Allergy Severe Swelling/Ed Verified 10/01/21 07:47 Antibiotics) kendal trazodone AdvReac Intermediate PER PT Verified 10/01/21 07:47 MAKES HER HEART RACE. Home Medications Medication Instructions Recorded Confirmed Type acetaminophen 500 mg tablet 1,000 mg PO TID PRN PRN #90 tab 03/13/21 10/01/21 Rx sennosides 8.6 mg tablet 8.6 mg PO BID PRN 04/16/21 10/01/21 History zolpidem 5 mg tablet (Ambien) 5 mg PO QHS PRN tab 04/16/21 10/01/21 History lidocaine 5 % topical patch 1 patch TOPICAL DAILY PRN #30 ea 05/25/21 10/01/21 Rx (Lidoderm) ondansetron 4 mg disintegrating 4 mg PO Q8H PRN #30 tab 07/03/21 09/30/21 Rx tablet folic acid 1 mg tablet 1 mg PO DAILY AM #30 tab 07/14/21 10/01/21 Rx lisinopril 5 mg tablet 5 mg PO DAILY #30 tab 07/14/21 10/01/21 Rx nutritional supplements 1 oz PO TID #90 ea 07/14/21 10/01/21 Rx (Phlexy-Vits) pantoprazole 40 mg tablet,delayed See Rx Instructions .ROUTE 07/14/21 10/01/21 Rx release .COMPLEX #42 tab sucralfate 100 mg/mL oral 10 ml PO QACHS #1000 ml 07/14/21 10/01/21 Rx suspension (Carafate) fentanyl 50 mcg/hr transdermal 1 patch TRANSDERMAL Q72H #10 ea 07/30/21 10/01/21 Rx patch MDD 1 patch gabapentin 300 mg capsule 300 mg PO DIRECTED #450 cap 08/03/21 10/01/21 Rx pyridostigmine bromide 180 mg 180 mg PO DAILY #90 tab-cap 09/09/21 10/01/21 Rx tablet,extended release (Mestinon Timespan) cyclobenzaprine 10 mg tablet 10 mg PO TID 09/30/21 10/01/21 History Exam Const General: cooperative and frail appearing Neck Neck: supple Resp Effort & Inspection: normal respiratory effort Auscultation: clear to auscultation bilaterally Cardio Rate: regular rate Rhythm: regular rhythm GI Palpation: soft and no masses Neuro General: patient alert and patient awake Results Last Vital Signs Temp 36.1 C L 10/01/21 07:35 Pulse 80 10/01/21 07:35 Resp 16 10/01/21 07:35 BP 162/103 H 10/01/21 07:35 Pulse Ox 96 10/01/21 07:35
[2021-10-01] MEDS: Lidocaine 2% Jelly 6 ML SYR (10:18)
--- NOTE | 2021-10-01 10:24 | W.PM.DSUDISC ---
Discharge Plan Disposition Patient Disposition: HOME Condition: Stable Discharge Details Reason For Visit: suprapubic tube placement Attending Provider: Prem Jorge Primary Care Provider: Prashanth Tahyer Home Meds and New Rx's Prescriptions: No Action sennosides 8.6 mg tablet 8.6 mg PO BID PRN0RF zolpidem [Ambien] 5 mg tablet 5 mg PO QHS PRN (Reason: insomnia) 0RF acetaminophen 500 mg tablet 1,000 mg PO TID PRN PRN (Reason: pain) Qty: 90 0RF ondansetron 4 mg tablet,disintegrating 4 mg PO Q8H PRN (Reason: nausea and vomiting) Qty: 30 3RF lidocaine [Lidoderm] 5 % adhesive patch,medicated 1 patch topical DAILY PRN (Reason: pain) Qty: 30 5RF Rx Instructions: leave on most painful area for up to 12 hrs; leave off for 12 hours between fentanyl 50 mcg/hr patch 72 hour 1 patch transdermal Q72H MDD 1 patch Qty: 10 0RF gabapentin 300 mg capsule 300 mg PO DIRECTED Qty: 450 3RF Rx Instructions: 2 capsules PO QAM, 1 capsule PO midday, 2 capsules QHS. No abrupt cessation. pyridostigmine bromide [Mestinon Timespan] 180 mg tablet extended release 180 mg PO DAILY Qty: 90 3RF pantoprazole 40 mg Tablet,Delayed Release (Dr/Ec) See Rx Instructions .ROUTE .COMPLEX Qty: 42 0RF Rx Instructions: 40 mg orally bid x 2 wks, then daily sucralfate [Carafate] 100 mg/mL suspension 10 ml PO QACHS Qty: 1000 1RF folic acid 1 mg Tablet 1 mg PO DAILY AM Qty: 30 0RF Phlexy-Vits Powder In Packet 1 oz PO TID Qty: 90 0RF lisinopril 5 mg tablet 5 mg PO DAILY Qty: 30 0RF cyclobenzaprine 10 mg Tablet 10 mg PO TID 0RF Discharge Instructions Additional Instructions: change suprapubic tube dressing daily - may leave dressing off entirely when no more drainage is found suprapubic tube to gravity drainage F/U 4 to 6 weeks for suprapubic tube change Activity:: Activity as Tolerated Remove Dressings/Wound Care:: 24 hours Shower/Bathe:: 24 hours Diet:: As Tolerated Discharge Orders Discharge Orders: Discharge Order (Routine); Ordered 10/01/21 Ordered By: Prem Jorge DS: Diagnosis Discharge Diagnosis (1) Neurogenic bladder:
--- NOTE | 2021-10-01 10:28 | ROE_ITS ---
Date of service: 10/01/21 Time of Service: 10:29 Operative Note Operative Note DATE OF PROCEDURE: 10/01/21 PRE-OP DIAGNOSIS: Neurogenic bladder POST-OP DIAGNOSIS: same PROCEDURE: Cystoscopy with insertion of suprapubic tube SURGEON: Prem Jorge ANESTHESIA TYPE: Local By Surgeon and General:No Airway Refer to Anesthesia Record ESTIMATED BLOOD LOSS: 10 PATHOLOGY: none sent Patient was transported to: PACU Patient's condition: stable Implants: 16 [place] suprapubic tube with 10 cc sterile water in balloon Indications: This is a 66-year-old female who has a history of a neurogenic bladder. She has myasthenia gravis and a subarachnoid cyst. She is unable to perform intermittent catheterization. She presents for placement of a suprapubic tube. Procedure Description: Patient was brought to the operating room on 10/01/2021. She was given an oral dose of ciprofloxacin. After successful induction of general anesthesia, she was placed in the dorsal lithotomy position. Her indwelling urethral catheter was removed. Her genitalia and suprapubic area were prepped and draped. 2% Xylocaine jelly was instilled into the urethra to act as a local anesthetic. A field block was performed on the suprapubic area using half percent Marcaine. A curved Lowsley tractor was then passed through the urethra into the bladder. The tip of the Lowsley tractor was brought up against the abdominal wall. An incision was made overlying the tip in the end of the Lowsley tractor was brought through the suprapubic site. The jaws of the Lowsley were then opened and a 16 [place] catheter was passed and brought down through the suprapubic site into the bladder. The catheter was positioned while cystoscopy was performed. We utilized a 22 [place] cystoscope and a 70 degree lens. Once the catheter was positioned within the bladder, the catheter balloon was inflated with 10 cc of sterile water. The catheter was hooked to gravity drainage. A dry sterile dressing was applied to the suprapubic site. The patient tolerated the procedure well. She will come to the office in 4 to 6 weeks for her for suprapubic catheter change.
[2021-10-01] MEDS: Bupivacaine 0.5% Pres-Free 30 ML VIAL (10:36)
--- NOTE | 2021-10-01 11:25 | W.ANESPOSTOP ---
Postoperative Evaluation Date, Time and Location Date Performed: 10/01/21 Time Performed: 11:25 Patient Location: Day Surgery Unit Vital Signs Most Recent Imported Vital Signs: Most Recent Vital Signs Temp Pulse Resp BP Pulse Ox 36.5 C 81 14 174/96 H 95 10/01/21 11:00 10/01/21 11:00 10/01/21 11:00 10/01/21 11:00 10/01/21 11:00 Pain Score Most Recent Pain Score: Most Recent Pain Score Pain Level 1 10/01/21 11:00 Assessment Mental Status: Awake (Alert & Oriented to Patient Baseline) Airway and Respiratory Function: Patent airway with normal (patient baseline) respiratory exam Cardiovascular Function: Hemodynamically Stable Hydration Status: Adequately Hydrated Nausea & Vomiting: No Nausea or Vomiting Pain: Pain is tolerable per patient Peripheral Nerve Block: Patient did not receive a nerve block Teaching Patient Teaching: Other (Potential Left AC IV infiltrate, currently elevated. Plan for patient to monitor, continue warm compresses, and call anesthesia with any concerns.)
== END 2021-10-01 13:28 | disposition home or self-care (01) ==
PROVIDERS: PCP Nurse Practitioner Family; Visit Provider Urology
PROC: (CPT 51102; principal; 2021-10-01 08:45)
DX: N31.8 Other neuromuscular dysfunction of bladder (principal); R33.8 Other retention of urine; G70.00 Myasthenia gravis without (acute) exacerbation; G62.9 Polyneuropathy, unspecified; R27.0 Ataxia, unspecified; N18.9 Chronic kidney disease, unspecified; K21.9 Gastro-esophageal reflux disease without esophagitis; J44.9 Chronic obstructive pulmonary disease, unspecified
CPT/HCPCS: 51102; J0360; J2001; J2250; J2704

== ENCOUNTER 2021-10-09 03:47 | Outpatient (CLI) | payer OTHER, SELFPAY ==
[2021-10-10 12:19] LABS: COVID-19 RT-PCR UVMMC Result Negative (Negative)
== END 2021-10-09 03:48 | disposition home or self-care (01) ==
LOC: LBO 03:47
PROVIDERS: PCP Nurse Practitioner Family; Visit Provider Surgery
DX: Z20.822 Contact with and (suspected) exposure to COVID-19 (principal)
CPT/HCPCS: 87635; U0003; U0005

== ENCOUNTER 2021-10-12 06:02 | Day surgery (SDC) | payer OTHER, SELFPAY ==
[2021-10-12 06:23] VITALS: BP 153/94; PULSE 86; RESP 18; TEMP 36.2; O2SAT 94
--- NOTE | 2021-10-12 06:37 | W.PREOPHP ---
Assessment and Plan Assessment and plan (1) Gastric ulcer: Status: Acute Assessment and plan: ?Mrs Kim is a pleasant 66-year-old female who was admitted to the hospital back in June for GI bleed.? She underwent an upper endoscopy which showed an ulcer.? Biopsies were negative for H. pylori.? She continues to complain of epigastric abdominal pain as well as intermittent emesis.? She denies hematemesis.? She continues to take her pantoprazole daily and Carafate 3 times a day.? The reason for repeat upper endoscopy was reviewed with her as well as the procedure and complications.? She is quite anxious and seems overwhelmed.? She has a hard time getting RCT scheduled for things. I did also discuss a colonoscopy with her.? She has never had 1 before.? I reviewed the reasons that we should do a colonoscopy as well as the prep and the procedure itself.? At this time the patient's feels very overwhelmed and would only like to proceed with the upper endoscopy. Risks, benefits and complications have been reviewed. Complications include but are not limited to bleeding, pain, perforation, sore throat, aspiration, and adverse reaction to the medications.? Questions were entertained and answered to their satisfaction and they wished to proceed. No guarantees were given or implied. EGD under sedation Qualifiers: Gastric ulcer chronicity: acute Gastric ulcer complication status: with hemorrhage Qualified Code(s): K25.0 - Acute gastric ulcer with hemorrhage History of Present Illness Narrative: Mrs Kim is a pleasant 66-year-old female who was seen when she was admitted to the emergency department with a GI bleed.? She underwent upper endoscopy and was noted to have a gastric ulcer.? Biopsies were negative for H. pylori.? The patient has not had any more melena since her discharge.? She continues to complain of epigastric stomach pain.? A few nights ago she did have a bout of emesis.? She feel nauseated if she does not eat.? She tells me that she is still on Protonix once a day and Carafate 3 times a day.? There is no family history of gastric cancer.? I also discussed with her that she has never had a colonoscopy and certainly it is indicated.? We reviewed the colonoscopy process as well as the prep.? The patient is quite anxious and at this time wishes to only proceed with the upper endoscopy.? Did discuss with her the signs and symptoms of colon cancer. She underwent suprapubic catheter placement by Dr. Jorge and did well after that. Review of Systems Constitutional Constitutional: Denies fever(s), Denies headache(s), Reports weakness and Denies weight loss Eyes Eyes: Denies change in vision ENT Ears, Nose, Mouth, and Throat: Denies dysphagia, Denies headache(s) and Denies hoarseness Cardiovascular Cardiovascular: Denies chest pain, Denies chest pain at rest, Denies irregular heart rhythm, Denies palpitations and Denies dyspnea Respiratory Respiratory: Denies chest congestion, Denies cough and Denies dyspnea Gastrointestinal Gastrointestinal: Reports as per HPI and Denies dysphagia Genitourinary Genitourinary: Reports system reviewed and no additional complaints, except as documented Musculoskeletal Musculoskeletal: Reports system reviewed and no additional complaints, except as documented Neurologic Neurologic: Denies headache(s) and Reports weakness Endocrine Endocrine: Denies palpitations PFSH All Active Problems Gastric ulcer (Acute) Pyuria (Acute) Protein malnutrition (Acute) Acute anemia (Acute) Generalized weakness (Acute) Acute GI bleeding (Acute) DNI (do not intubate) (Acute) DNR (do not resuscitate) (Acute) POLST (Physician Orders for Life-Sustaining Treatment) (Acute) COLST completed 10/30/2020 with Jennifer Lugo, MAUREEN, DNR/DNI Constipation, chronic (Acute) Ataxia (Acute) Left hand weakness (Acute) Chronic renal insufficiency (Acute) Chronic pain (Chronic) Asymptomatic microscopic hematuria (Acute) Myasthenia gravis (Chronic) GERD (gastroesophageal reflux disease) (Chronic) Intracranial arachnoid cyst (Chronic) COPD (chronic obstructive pulmonary disease) (Chronic) Medical History Anxiety Arachnoid cyst Blood loss anemia Blurred vision Bunion of unspecified foot Dental caries Depression Enterococcus UTI Former smoker Frequent falls History of gluten intolerance History of lacunar cerebrovascular accident Hyperlipidemia Hypertension Hypokalemia Insomnia previous misuse of Ambien Left arm weakness Migraine headache without aura Neurogenic bladder Neuropathic pain of both legs Pain Peripheral neuropathy Prediabetes Spasticity Spinal stenosis Syrinx of spinal cord Starting at C3 and extending to T11 Urinary frequency Urinary retention Weakness Surgical History H/O craniotomy ; L cerebellar arachnoid cyst drain with shunt placement H/O esophagogastroduodenoscopy (~07/2021) H/O thymectomy 1980s S/P appendectomy S/P cystourethroscopy with dilation of urethral stricture S/P tonsillectomy Family History Mother Diabetes Father Neuropathy Back problem Brother Myasthenia gravis Social History Smoking/Tobacco Use Status: Former Tobacco Use Quit Date: 08/15/16 Smoking risk assessment performed?: Yes Alcohol Intake: former Drug use: Never Substance use type: does not use Household members: other Housing: retirement Number of Children: 0 Pets and animals: No What type of physical activity do you participate in: none Seatbelt use: always Do you feel safe at home: Yes (Pt lives alone) Do you feel safe in your relationship?: No Meds Allergies and Home Medications Allergies Allergy/AdvReac Type Severity Reaction Status Date / Time codeine Allergy Severe pt unsure Verified 10/12/21 06:32 of reaction iodine Allergy Severe pt unsure Verified 10/12/21 06:32 of reaction Penicillins Allergy Severe Anaphylaxsi Verified 10/12/21 06:32 s Sulfa (Sulfonamide Allergy Severe Swelling/Ed Verified 10/12/21 06:32 Antibiotics) kendal trazodone AdvReac Intermediate PER PT Verified 10/12/21 06:32 MAKES HER HEART RACE. Home Medications Medication Instructions Recorded Confirmed Type acetaminophen 500 mg tablet 1,000 mg PO TID PRN PRN #90 tab 03/13/21 10/12/21 Rx sennosides 8.6 mg tablet 8.6 mg PO BID PRN 04/16/21 10/12/21 History zolpidem 5 mg tablet (Ambien) 5 mg PO QHS PRN tab 04/16/21 10/12/21 History lidocaine 5 % topical patch 1 patch TOPICAL DAILY PRN #30 ea 05/25/21 10/12/21 Rx (Lidoderm) ondansetron 4 mg disintegrating 4 mg PO Q8H PRN #30 tab 07/03/21 10/12/21 Rx tablet folic acid 1 mg tablet 1 mg PO DAILY AM #30 tab 07/14/21 10/12/21 Rx lisinopril 5 mg tablet 5 mg PO DAILY #30 tab 07/14/21 10/12/21 Rx nutritional supplements 1 oz PO TID #90 ea 07/14/21 10/12/21 Rx (Phlexy-Vits) pantoprazole 40 mg tablet,delayed See Rx Instructions .ROUTE 07/14/21 10/12/21 Rx release .COMPLEX #42 tab sucralfate 100 mg/mL oral 10 ml PO QACHS #1000 ml 07/14/21 10/12/21 Rx suspension (Carafate) fentanyl 50 mcg/hr transdermal 1 patch TRANSDERMAL Q72H #10 ea 07/30/21 10/12/21 Rx patch MDD 1 patch gabapentin 300 mg capsule 300 mg PO DIRECTED #450 cap 08/03/21 10/12/21 Rx cyclobenzaprine 10 mg tablet 10 mg PO TID 09/30/21 10/12/21 History pyridostigmine bromide 180 mg 180 mg PO HS 10/09/21 10/12/21 History tablet,extended release (Mestinon Timespan) Exam Const General: cooperative and frail appearing Neck Neck: supple Resp Effort & Inspection: normal respiratory effort Auscultation: clear to auscultation bilaterally Cardio Rate: regular rate Rhythm: regular rhythm GI Palpation: soft and no masses Neuro General: patient alert and patient awake
--- NOTE | 2021-10-12 06:41 | W.PM.ENDDOP ---
Date of service: 10/12/21 Time of Service: 07:48 Endoscopy Report DATE OF PROCEDURE: 10/12/21 PRE-OP DIAGNOSIS: Hx of GI bleed and Gastric ulcer POST-OP DIAGNOSIS: other (gastritis, esophagitis) PROCEDURE: EGD with biopsies SURGEON: Ginny Gonzalez ANESTHESIA TYPE: General:No Airway ESTIMATED BLOOD LOSS: 3 PATHOLOGY: other (GE junction bx) COMPLICATIONS: None DISPOSITION: same day INDICATIONS: ?Mrs Kim is a pleasant 66-year-old female who was admitted to the hospital back in June for GI bleed.? She underwent an upper endoscopy which showed an ulcer.? Biopsies were negative for H. pylori.? She continues to complain of epigastric abdominal pain as well as intermittent emesis.? She denies hematemesis.? She continues to take her pantoprazole daily and Carafate 3 times a day.? The reason for repeat upper endoscopy was reviewed with her as well as the procedure and complications.? She is quite anxious and seems overwhelmed.? She has a hard time getting RCT scheduled for things. I did also discuss a colonoscopy with her.? She has never had 1 before.? I reviewed the reasons that we should do a colonoscopy as well as the prep and the procedure itself.? At this time the patient's feels very overwhelmed and would only like to proceed with the upper endoscopy. Risks, benefits and complications have been reviewed. Complications include but are not limited to bleeding, pain, perforation, sore throat, aspiration, and adverse reaction to the medications.? Questions were entertained and answered to their satisfaction and they wished to proceed. No guarantees were given or implied. EGD under sedation FINDINGS: NO gastric ulcers Scarring and inflammation at the GE junction PROCEDURE DESCRIPTION: After informed consent was obtained the patient was take to the procedure room and placed in a supine position. Monitors were applied and a time out was done. The patients name, date of , procedure type, allergies to medications and metal in their body was reviewed. A bite block was placed and the patient was sedated. Once sedated and comfortable the gastroscope was advanced through the oropharynx which was grossly normal into the esophagus. The proximal and mid-esophagus were normal. In the distal esophagus there was scarring and inflammation noted. The scope was advanced into the stomach and through the pylorus into the 1st portion of the duodenum. The duodenum was noted to be normal. The scope was retracted back into the stomach. The stomach was normal. There were no ulcers and no inflammation. The scope was retroflexed. The cardia and fundus were noted to be normal. There was no hiatal hernia noted. The scope was retracted back into the esophagus and biopsies were done of the GE junction to rule out Hameed's. The Z line was regular. The GE junction was at 36 cm. There was scarring of the GE junction noted. The scope was removed and the patient was woken up and taken back to [facility] in stable condition. Follow up: as needed. Continue with antacids
--- NOTE | 2021-10-12 06:43 | W.PM.DSUDISC ---
Discharge Plan Disposition Patient Disposition: HOME Condition: Stable Discharge Details Reason For Visit: EGD Attending Provider: Ginny Gonzalez Primary Care Provider: Prashanth Thayer Home Meds and New Rx's Prescriptions: Continued sennosides 8.6 mg tablet 8.6 mg PO BID PRN0RF Label Comments: Pt reports not taking for @ 1 month zolpidem [Ambien] 5 mg tablet 5 mg PO QHS PRN (Reason: insomnia) 0RF acetaminophen 500 mg tablet 1,000 mg PO TID PRN PRN (Reason: pain) Qty: 90 0RF ondansetron 4 mg tablet,disintegrating 4 mg PO Q8H PRN (Reason: nausea and vomiting) Qty: 30 3RF lidocaine [Lidoderm] 5 % adhesive patch,medicated 1 patch topical DAILY PRN (Reason: pain) Qty: 30 5RF Label Comments: Pt reports she doesnt have lidocaine patch on at this time. Rx Instructions: leave on most painful area for up to 12 hrs; leave off for 12 hours between fentanyl 50 mcg/hr patch 72 hour 1 patch transdermal Q72H MDD 1 patch Qty: 10 0RF gabapentin 300 mg capsule 300 mg PO DIRECTED Qty: 450 3RF Rx Instructions: 2 capsules PO QAM, 1 capsule PO midday, 2 capsules QHS. No abrupt cessation. pantoprazole 40 mg Tablet,Delayed Release (Dr/Ec) See Rx Instructions .ROUTE .COMPLEX Qty: 42 0RF Rx Instructions: 40 mg orally bid x 2 wks, then daily sucralfate [Carafate] 100 mg/mL suspension 10 ml PO QACHS Qty: 1000 1RF folic acid 1 mg Tablet 1 mg PO DAILY AM Qty: 30 0RF Phlexy-Vits Powder In Packet 1 oz PO TID Qty: 90 0RF lisinopril 5 mg tablet 5 mg PO DAILY Qty: 30 0RF pyridostigmine bromide [Mestinon Timespan] 180 mg tablet extended release 180 mg PO HS 0RF cyclobenzaprine 10 mg Tablet 10 mg PO TID 0RF Discharge Instructions Additional Instructions: Findings: scarring at the junction of the esophagus and stomach. Mild inflammation Follow up: as needed. Continue on antacids Please call if you develop: fevers >101.5 Nausea or Vomiting Abdominal pain that is not transient Rectal bleeding that is more then a tbsp A hard abdomen and inability to pass gas DAY SURGERY UNIT POST ENDOSCOPY INSTRUCTIONS Instructions for everyone who is given Anesthesia: For your safety, please do the following for the next 24 Hours: a. Do not drive or operate dangerous equipment b. Do not drink alcohol beverages or use any recreational drugs for the first 24 hours or while taking pain medications. The medications in your body may have a reaction that can be dangerous. c. Do not make any important decisions or sign any important papers 1. Generally there are no restrictions on your activity after a day or so has gone by, but you may feel a bit fatigued for a few days. 2. After you arrive home you may have a light meal and return to a normal diet as you can tolerate it without feeling sick to your stomach. 3. After surgery, you may feel pain or discomfort. This should be only transient, but if it persists please contact your doctor. 4. If there are any questions regarding the findings of your procedure, please feel free to contact your doctor. 6. If you are unable to contact your doctor with a problem, contact the hospital at [phone]. 7. Continue all your regular medications unless directed otherwise. I understand the above instructions and have no questions. Signature of Patient or Responsible Adult Escort Date/Time Name of Responsible Adult Escort Signature of Nurse Date/Time Activity:: Activity as Tolerated Diet:: As Tolerated Discharge Orders Discharge Orders: Discharge Order (Routine); Ordered 10/12/21 Ordered By: Ginny Gonzalez DS: Diagnosis Discharge Diagnosis (1) Gastric ulcer: Status: Acute
--- NOTE | 2021-10-12 07:03 | W.ANESPRE ---
General Info Date of Service Date Performed: 10/12/21 Height: 5 ft 4 in Weight: 66.3 kg Body Mass Index (BMI): 25.0 Surgical Procedure: Operation Date: 10/12/21 07:35 Proposed Procedure Side Surgeon p Gastroscopy Ginny Gonzalez MD Actual Procedure Side Surgeon p Gastroscopy Not Applicable Ginny Gonzalez MD Pre-Op Diagnosis Post-Op Diagnosis Gastric ulcer Meds Allergies and Home Medications Allergies Allergy/AdvReac Type Severity Reaction Status Date / Time codeine Allergy Severe pt unsure Verified 10/12/21 06:32 of reaction iodine Allergy Severe pt unsure Verified 10/12/21 06:32 of reaction Penicillins Allergy Severe Anaphylaxsi Verified 10/12/21 06:32 s Sulfa (Sulfonamide Allergy Severe Swelling/Ed Verified 10/12/21 06:32 Antibiotics) kendal trazodone AdvReac Intermediate PER PT Verified 10/12/21 06:32 MAKES HER HEART RACE. Home Medication Medication Instructions Recorded acetaminophen 500 mg tablet 1,000 mg PO TID PRN PRN #90 tab 03/13/21 sennosides 8.6 mg tablet 8.6 mg PO BID PRN 04/16/21 zolpidem 5 mg tablet (Ambien) 5 mg PO QHS PRN tab 04/16/21 lidocaine 5 % topical patch 1 patch TOPICAL DAILY PRN #30 ea 05/25/21 (Lidoderm) ondansetron 4 mg disintegrating 4 mg PO Q8H PRN #30 tab 07/03/21 tablet folic acid 1 mg tablet 1 mg PO DAILY AM #30 tab 07/14/21 lisinopril 5 mg tablet 5 mg PO DAILY #30 tab 07/14/21 nutritional supplements 1 oz PO TID #90 ea 07/14/21 (Phlexy-Vits) pantoprazole 40 mg tablet,delayed See Rx Instructions .ROUTE 07/14/21 release .COMPLEX #42 tab sucralfate 100 mg/mL oral 10 ml PO QACHS #1000 ml 07/14/21 suspension (Carafate) fentanyl 50 mcg/hr transdermal 1 patch TRANSDERMAL Q72H #10 ea 07/30/21 patch MDD 1 patch gabapentin 300 mg capsule 300 mg PO DIRECTED #450 cap 08/03/21 cyclobenzaprine 10 mg tablet 10 mg PO TID 09/30/21 pyridostigmine bromide 180 mg 180 mg PO HS 10/09/21 tablet,extended release (Mestinon Timespan) Current Visit Medications: Current Medications Generic Name Dose Route Start Last Admin Trade Name Edwina PRN Reason Stop Dose Admin Hyoscyamine Sulfate 0.125 mg 10/12/21 06:43 Hyoscyamine 0.125 Mg Sl/Oral/Chew SL DIRECTED PRN Ringer's Solution 1,000 mls @ 80 mls/hr 10/12/21 06:00 IV 11/08/21 23:59 INFUSION [facility] IV Miscellaneous Supplies 1 each 10/12/21 06:00 Iv Access IV 11/08/21 23:59 DIRECTED PATY Ondansetron HCl 4 mg 10/12/21 06:43 Ondansetron 4 Mg/2 Ml Vial IVP Q4H PRN PRN Nausea / Vomiting Sodium Chloride 0 ml 10/12/21 06:00 Normal Saline Flush 10 Ml Syr IV 11/08/21 23:59 PRN PRN Sodium Chloride 0 ml 10/12/21 06:00 Normal Saline 10 Ml Vial IJ 11/08/21 23:59 DIRECTED PRN Sterile Water 0 ml 10/12/21 06:00 Water,Injection,Sterile 10 Ml Vial IJ 11/08/21 23:59 DIRECTED PRN PFSH Active Problems Active Problems: Problem Status Onset Code Gastric ulcer K25.9 Pyuria R82.81 Protein malnutrition E46 Acute anemia D64.9 Generalized weakness R53.1 Acute GI bleeding K92.2 DNI (do not intubate) Z78.9 DNR (do not resuscitate) Z66 POLST (Physician Orders for Life-Sustaining Treatment) Z78.9 Constipation, chronic K59.09 Ataxia R27.0 Left hand weakness R29.898 Chronic renal insufficiency N18.9 Chronic pain G89.29 Asymptomatic microscopic hematuria R31.21 Myasthenia gravis G70.00 GERD (gastroesophageal reflux disease) K21.9 Intracranial arachnoid cyst G93.0 COPD (chronic obstructive pulmonary disease) J44.9 Alcohol abuse F10.10 Medical History Medical History Anxiety Arachnoid cyst Blood loss anemia Blurred vision Bunion of unspecified foot Dental caries Depression Enterococcus UTI Former smoker Frequent falls History of gluten intolerance History of lacunar cerebrovascular accident Hyperlipidemia Hypertension Hypokalemia Insomnia previous misuse of Ambien Left arm weakness Migraine headache without aura Neurogenic bladder Neuropathic pain of both legs Pain Peripheral neuropathy Prediabetes Spasticity Spinal stenosis Syrinx of spinal cord Starting at C3 and extending to T11 Urinary frequency Urinary retention Weakness Medical History Comments:: 2 person assist from WC, L arm weekness. Supra pubic catheter in situ. Multiple missing teeth; front and back. Pt reports no dentures. Pt reports no metal in body. Fentanyl patch on left upper arm. Surgical History Surgical History H/O craniotomy ; L cerebellar arachnoid cyst drain with shunt placement H/O esophagogastroduodenoscopy (~07/2021) H/O thymectomy 1980s S/P appendectomy S/P cystourethroscopy with dilation of urethral stricture S/P tonsillectomy Tobacco Smoking/Tobacco Use Status: Former Tobacco Use Alcohol Alcohol Intake: former Substance Use Substance use: Never Substance use type: does not use Vital Signs and Lab Results Vital Signs Most Recent Vital Signs in EMR: Most Recent Vital Signs Temp Pulse Resp BP Pulse Ox 36.2 C L 86 18 153/94 H 94 10/12/21 06:23 10/12/21 06:23 10/12/21 06:23 10/12/21 06:23 10/12/21 06:23 Lab Results Blood Type / Crossmatch: No Data to Display Complete Blood Count: White Blood Count 5.52 10^3/uL (4.4-10.8) 09/28/21 16:20 09/28/21 Red Blood Count 5.31 10^6/uL (3.93-5.22) H 09/28/21 16:20 09/28/21 Hemoglobin 14.0 g/dL (11.2-15.7) 09/28/21 16:20 09/28/21 Hematocrit 44.8 % (36.0-46.0) 09/28/21 16:20 09/28/21 Platelet Count 281 10^3/uL (130-400) 09/28/21 16:20 09/28/21 Complete Metabolic Panel: Sodium Level 136 mmol/L (136-145) 09/28/21 16:20 09/28/21 Potassium Level 4.2 mmol/L (3.5-5.1) 09/28/21 16:20 09/28/21 Chloride Level 101 mmol/L (98-107) 09/28/21 16:20 09/28/21 Carbon Dioxide Level 31.3 mmol/L (21.0-32.0) 09/28/21 16:20 09/28/21 Blood Urea Nitrogen 17 mg/dL (7-18) 09/28/21 16:20 09/28/21 Creatinine 1.0 mg/dL (0.55-1.02) 09/28/21 16:20 09/28/21 Estimated GFR/1.73 m2 55.47 (mL/min/1.73m2) 09/28/21 16:20 09/28/21 Calcium Level 9.4 mg/dL (8.5-10.1) 09/28/21 16:20 09/28/21 Glucose Level 96 mg/dL (74-106) 09/28/21 16:20 09/28/21 Hemoglobin A1c 5.5 % (<5.7) 09/28/21 16:20 09/28/21 Liver Function Panel: No Data to Display Coagulation Panel: No Data to Display Cardiac Panel: No Data to Display Arterial Blood Gas: No Data to Display Venous Blood Gas: No Data to Display Pancreas Panel: No Data to Display Thyroid Panel: No Data to Display Infectious Disease: Coronavirus (COVID-19)(PCR) Negative (Negative) 10/09/21 09:24 10/09/21 Coronavirus 2019 Source Nasal/Nares 09/29/21 09:48 09/29/21 Blood Cultures: No Data to Display Toxicology Panel: No Data to Display Imaging and Studies Imaging and Studies Study information below may be from another EMR and interpreted by another provider. Please see original notes in EMR for more complete details. EKG Summary: DATE/TIME OF SERVICE: 07/09/21 1317 Exam: Resting ECG Reason for Exam: syncope Patient Location: E HR:92 bpm ECG Measurements Heart Rate 92 AXIS OR 148 P 54 QRSd 79 QRS 18 QT 352 T41 QTc 436 Conclusion Sinus rhythm...normal P axis, V-rate 60- 99 Low voltage, precordial leads...precordial leads <1.0mV. Sinus. No STEMI. Anesthesia Assessment and Plan Anesthesia History Personal History: No History of Anesthesia Complications Family History: No Family History of Anesthesia Complications Exercise Tolerance Exercise Tolerance: Metabolic Equivalents<4 Pertinent Negatives Pertinent Negatives: No Symptoms of GERD, No Major Cardiovascular Symptoms or Complaints and No Major Pulmonary Symptoms or Complaints Cardiac & Pulmonary Exam Cardiac Exam: Normal S1/S2 Heart Sounds Pulmonary Exam: Clear Bilateral Breath Sounds Implantable Cardiac Device Does patient have a Pacemaker or an ICD?: No Airway Exam Known Difficult Airway: No Mallampati Class: 3 Mouth Opening: Normal (> 3cm) Thyromental Distance: Greater than 3 cm Neck Range of Motion: Limited ROM Neck Circumference: Normal Teeth Condition: Generalized Poor Dentition ASA Classification ASA Score: ASA 3 Emergency Case?: No NPO Status NPO Status: NPO Clears >2 hours, Solids >8 hours Anesthesia Plan Resuscitation Status: DNR Modified During Perioperative Period Resuscitation Modifications: Pt. Requests for Clinical Judgement to be Used Anesthesia Technique: General Anesthesia Airway Planned: Natural Airway Monitors Used: Standard Monitors
[2021-10-12 07:11] VITALS: BMI 25.0
[2021-10-12] MEDS: Lactated Ringers 1,000 ML 80 ML IV (07:13)
--- NOTE | 2021-10-12 07:42 | ESO_PTH ---
PATIENT: Missy Kim LOC: [facility] U#:[id number] AGE/SX: 66/F ROOM: RE10/12/[address]: Ginny Gonzalez MD : 1955 BED: DIS: 10/12/2021 SPEC #: [id number] RECD: 10/12/21 12:37 STATUS: LAURY RESal #: [id number] LIBBY: 10/12/21 07:[address]: Ginny Gonzalez DEPT: Surgical Specimen RECD BY: Amanda Nix ENTERED: 10/12/21 12:37 SP TYPE: Eso KT DR: Prashanth Thayer Tissues: 1 - ESOPHAGUS BIOPSY Procedures: GROSS AND MICRO LEVEL 4 Comments: [id number]
[2021-10-12 07:53] VITALS: BP 131/88; PULSE 90; RESP 18; TEMP 36.1; O2SAT 94
[2021-10-12 08:20] VITALS: BP 143/88; PULSE 80; RESP 16; TEMP 36.5; O2SAT 94
--- NOTE | 2021-10-12 08:23 | W.ANESPOSTOP ---
Postoperative Evaluation Date, Time and Location Date Performed: 10/12/21 Time Performed: 07:53 Patient Location: Day Surgery Unit Vital Signs Most Recent Imported Vital Signs: Most Recent Vital Signs Temp Pulse Resp BP Pulse Ox 36.1 C L 90 18 131/88 94 10/12/21 07:53 10/12/21 07:53 10/12/21 07:53 10/12/21 07:53 10/12/21 07:53 Pain Score Most Recent Pain Score: Most Recent Pain Score Pain Level 0 10/12/21 07:53 Assessment Mental Status: Awake (Alert & Oriented to Patient Baseline) Airway and Respiratory Function: Patent airway with normal (patient baseline) respiratory exam Cardiovascular Function: Hemodynamically Stable Hydration Status: Adequately Hydrated Nausea & Vomiting: No Nausea or Vomiting Pain: Pt. Denies Any Pain Peripheral Nerve Block: Patient did not receive a nerve block
== END 2021-10-12 09:48 | disposition home or self-care (01) ==
PROVIDERS: PCP Nurse Practitioner Family; Visit Provider Surgery
PROC: 0DJ68ZZ Inspection of Stomach, Via Natural or Artificial Opening Endoscopic (ICD-10-PCS; CPT 43235; principal; 2021-10-12 07:30)
DX: K29.70 Gastritis, unspecified, without bleeding (principal); K20.90 Esophagitis, unspecified without bleeding; K21.9 Gastro-esophageal reflux disease without esophagitis; G70.00 Myasthenia gravis without (acute) exacerbation; Z66 Do not resuscitate; K22.89 Other specified disease of esophagus
CPT/HCPCS: 43239; 88305; J2001; J2405

== ENCOUNTER → 2021-11-03 13:10 | Outpatient (BNVA) | payer OTHER, SELFPAY | PROVIDERS: PCP Nurse Practitioner Family; Referring Provider Nurse Practitioner Family; Visit Provider Psychiatry & Neurology Neurology | DX: M79.602 Pain in left arm (principal); G62.1 Alcoholic polyneuropathy; G89.29 Other chronic pain; G47.09 Other insomnia; K59.00 Constipation, unspecified; G70.00 Myasthenia gravis without (acute) exacerbation; G95.0 Syringomyelia and syringobulbia; G93.0 Cerebral cysts; G57.93 Unspecified mononeuropathy of bilateral lower limbs | CPT/HCPCS: 99214 ==

== ENCOUNTER → 2021-11-10 10:00 | Outpatient (BNVA) | payer OTHER, SELFPAY | PROVIDERS: PCP Nurse Practitioner Family; Referring Provider Nurse Practitioner Family; Visit Provider Urology | DX: Z46.6 Encounter for fitting and adjustment of urinary device (principal); N31.9 Neuromuscular dysfunction of bladder, unspecified; G70.00 Myasthenia gravis without (acute) exacerbation | CPT/HCPCS: 51705 ==

== ENCOUNTER → 2021-11-25 12:30 | Outpatient (BNVA) | payer OTHER, SELFPAY | PROVIDERS: PCP Nurse Practitioner Family; Referring Provider Nurse Practitioner Family; Visit Provider Psychiatry & Neurology Neurology | DX: G70.00 Myasthenia gravis without (acute) exacerbation (principal); G93.0 Cerebral cysts; G89.29 Other chronic pain; G56.02 Carpal tunnel syndrome, left upper limb; G56.22 Lesion of ulnar nerve, left upper limb; G95.0 Syringomyelia and syringobulbia; G62.1 Alcoholic polyneuropathy; R29.898 Other symptoms and signs involving the musculoskeletal system; R25.2 Cramp and spasm; G47.00 Insomnia, unspecified; M25.512 Pain in left shoulder | CPT/HCPCS: 95909; 99214 ==

== ENCOUNTER 2021-12-22 14:12 | Outpatient (CLI) | payer OTHER, SELFPAY ==
--- NOTE | 2021-12-22 14:00 | DI.RAD_ITS ---
Exam(s) XR SHOULDER LT COMPLETE 2+V EXAM: XR SHOULDER LT COMPLETE 2+V CLINICAL HISTORY: left shoulder pain. TECHNIQUE: 2D digital imaging was performed. COMPARISON: No exams were available for comparison FINDINGS: Two views No evidence of fracture. No dislocation but there is upward subluxation of the humeral head in the g lenoid fossa and mild diminution of the subacromial space. This may indicate an element of significa nt rotator cuff pathology. There are no obvious degenerative changes in the glenohumeral and AC join ts. On the axial view there is a small 2 millimeter calcific density adjacent to the greater tuberos ity, probably consistent with element of calcific rotator cuff tendinitis. Incidentally noted are sternotomy wires. No ominous osseous lesions. IMPRESSION: DATA REPOSITORY: RADIATION DOSE DELIVERED:
== END 2021-12-22 14:13 | disposition home or self-care (01) ==
LOC: DIORS 14:12
PROVIDERS: PCP Nurse Practitioner Family; Referring Provider Nurse Practitioner Family; Visit Provider Student in an Organized Health Care Education/Training Program
DX: S43.002A Unspecified subluxation of left shoulder joint, initial encounter (principal); R93.7 Abnormal findings on diagnostic imaging of other parts of musculoskeletal system; X58.XXXA Exposure to other specified factors, initial encounter; M25.512 Pain in left shoulder
CPT/HCPCS: 99204; 99214; 73030

== ENCOUNTER 2021-12-29 17:28 | Outpatient (REF) | payer OTHER, SELFPAY ==
[2021-12-29 18:30] LABS: Anion Gap 7.7 mmol/L (3-11); BUN 25 mg/dL (7-18); CO2 30.3 mmol/L (21.0-32.0); CREATININE 1.2 mg/dL (0.55-1.02); Calcium 8.8 mg/dL (8.5-10.1); Chloride 98 mmol/L (98-107); Estimated GFR 44.95 (mL/min/1.73m2); Glucose 101 mg/dL (74-106); Sodium 136 mmol/L (136-145)
== END 2021-12-29 17:29 | disposition home or self-care (01) ==
LOC: NCHCN 17:28
PROVIDERS: PCP Nurse Practitioner Family; Visit Provider Nurse Practitioner Family
DX: N18.31 Chronic kidney disease, stage 3a (principal)
CPT/HCPCS: 80048

== ENCOUNTER → 2022-01-19 00:35 | Outpatient (CLI) | payer OTHER, SELFPAY ==
--- NOTE | 2022-01-19 06:45 | DI.MRI_ITS ---
Exam(s) MR UPPER JOINT LT WO EXAM: MR UPPER JOINT LT WO CLINICAL HISTORY: LEFT SHOULDER PAIN,[id number]. TECHNIQUE: Multiplanar multisequence MRI was performed. COMPARISON: Plain films 22 Dec 2021 FINDINGS: The exam is limited by patient motion. BONES: There is no fracture or contusion pattern. JOINTS: The acromioclavicular joint is normal. The glenohumeral joint shows a small effusion. TENDONS: Supraspinatus: Unremarkable. Infraspinatus: Unremarkable. Subscapularis: There is a large amount of fluid extending between the scapula and around the supraspi natus tendon and muscle. This causes significant outward bowing of the muscle and tendon. No defini te tear is seen. This could arise from the subcoracoid bursa. Teres Minor: Unremarkable. Biceps and Roosevelt: Roosevelt not well seen due to motion. Proximal biceps tendon appears thin and displ aced from the groove. Fluid extends around biceps tendon MUSCLES: Unremarkable. GLENOID LABRUM: Unremarkable on this noncontrast examination. SOFT TISSUES: Unremarkable. OTHER: Subacromial and subdeltoid bursae are unremarkable. IMPRESSION: Limited exam due to patient motion. Large subcoracoid bursal fluid collection with extension around the subscapularis muscle and tendon. Severe partial of to full-thickness tear of the long head of th e biceps tendon. DATA REPOSITORY:
== END ==
PROVIDERS: PCP Nurse Practitioner Family; Visit Provider Student in an Organized Health Care Education/Training Program
DX: M25.512 Pain in left shoulder (principal); M25.412 Effusion, left shoulder; S46.112A Strain of muscle, fascia and tendon of long head of biceps, left arm, initial encounter
CPT/HCPCS: 73221

== ENCOUNTER → 2022-02-03 13:40 | Outpatient (BNVA) | payer OTHER, SELFPAY | PROVIDERS: PCP Nurse Practitioner Family; Referring Provider Nurse Practitioner Family; Visit Provider Student in an Organized Health Care Education/Training Program | DX: M75.52 Bursitis of left shoulder (principal); S46.212A Strain of muscle, fascia and tendon of other parts of biceps, left arm, initial encounter; X58.XXXA Exposure to other specified factors, initial encounter | CPT/HCPCS: 20610; 99214; J1040 ==

== ENCOUNTER 2022-02-08 17:17 | Outpatient (REF) | payer OTHER, SELFPAY ==
[2022-02-08 10:57] LABS: HCT 41.6 % (36.0-46.0); HGB 13.1 g/dL (11.2-15.7); MCH 29.2 pg (27.0-33.0); MCHC 31.5 % (32.0-36.0); MCV 93 fL (80-95); MPV 9.2 fL (8.0-11.0); Platelet Count 266 10^3/uL (130-400); RBC 4.49 10^6/uL (3.93-5.22); RDW 13.9 % (11.7-14.6); RDW-SD 47.3 fL; WBC 4.98 10^3/uL (4.4-10.8)
[2022-02-08 13:46] LABS: BUN 17 mg/dL (7-18); CREATININE 1.1 mg/dL (0.55-1.02); Calcium 9.4 mg/dL (8.5-10.1); Chloride 100 mmol/L (98-107); Estimated GFR 49.69 (mL/min/1.73m2); Glucose 73 mg/dL (74-106); Potassium 3.6 mmol/L (3.5-5.1); Sodium 140 mmol/L (136-145)
== END 2022-02-08 17:18 | disposition home or self-care (01) ==
LOC: NCHCN 17:17
PROVIDERS: PCP Nurse Practitioner Family; Visit Provider Nurse Practitioner Family
DX: I10 Essential (primary) hypertension (principal); N18.9 Chronic kidney disease, unspecified
CPT/HCPCS: 80048; 85027

== ENCOUNTER 2022-02-25 15:00 | Outpatient (REF) | payer OTHER, SELFPAY ==
[2022-02-25 19:20] LABS: Bilirubin Negative (Negative); Blood Small (Negative); Clarity Clear (Clear); Glucose Negative (Negative); Ketones Negative (Negative); Leukocyte Esterase Moderate (Negative); Nitrite Positive (Negative); Urobilinogen 0.2 EU/dL (Up TO 0.2); pH 6.5 (5-8)
[2022-02-25 19:23] LABS: Bacteria Few HPF (Negative); C & S Indicated? Yes; Casts Negative LPF (Negative); Crystals Negative HPF (Negative); Epithelial Cells Few HPF (Negative); Mucus Negative (Negative)
== END 2022-02-25 15:01 | disposition home or self-care (01) ==
LOC: LBN 15:00
PROVIDERS: PCP Nurse Practitioner Family; Visit Provider Nurse Practitioner Family
DX: N39.0 Urinary tract infection, site not specified (principal)
CPT/HCPCS: 81003; 81015; 87086

== ENCOUNTER 2022-03-26 10:55 | Outpatient (REF) | payer OTHER, SELFPAY ==
[2022-03-26 11:33] LABS: Abs Immature Grans 0.02 10^3/uL (0.0-0.06); Absolute Basophil Count 0.06 10^3/uL (0.0-0.2); Absolute Eosinophil Count 0.05 10^3/uL (0.0-0.7); Absolute Lymphocyte Count 1.22 10^3/uL (1.2-3.4); Absolute Monocyte Count 0.71 10^3/uL (0.1-0.8); Absolute Neutrophil Count 5.68 10^3/uL (1.2-6.7); Basophils % 0.8; Eosinophils % 0.6; HCT 40.9 % (36.0-46.0); HGB 12.8 g/dL (11.2-15.7); Immature Grans % 0.3; Lymphocytes % 15.8; MCH 28.6 pg (27.0-33.0); MCHC 31.3 % (32.0-36.0); MCV 92 fL (80-95); Monocytes % 9.2; Neutrophils % 73.3; RBC 4.47 10^6/uL (3.93-5.22); RDW 12.9 % (11.7-14.6); RDW-SD 43.2 fL; WBC 7.74 10^3/uL (4.4-10.8)
[2022-03-26 11:37] LABS: Bilirubin Negative (Negative); Blood Trace-intact (Negative); Clarity Clear (Clear); Glucose Negative (Negative); Ketones Negative (Negative); Leukocyte Esterase Negative (Negative); Nitrite Positive (Negative); Specific Gravity 1.015 (1.005-1.025); Urobilinogen 0.2 EU/dL (Up TO 0.2)
[2022-03-26 11:44] LABS: Bacteria Rare HPF (Negative); C & S Indicated? Yes; Casts Negative LPF (Negative); Crystals Negative HPF (Negative); Epithelial Cells Rare HPF (Negative); Mucus Negative (Negative); RBC 0-2 HPF (0-2); WBC Negative HPF (0-5)
[2022-03-26 12:09] LABS: ALT 23 U/L (14-59); AST 21 U/L (15-37); Alkaline Phosphatase 116 U/L (46-116); Anion Gap 11.9 mmol/L (3-11); BUN 14 mg/dL (7-18); Bilirubin, Total 0.3 mg/dL (0.2-1.0); CO2 28.1 mmol/L (21.0-32.0); Calcium 9.2 mg/dL (8.5-10.1); Chloride 97 mmol/L (98-107); Estimated GFR 55.47 (mL/min/1.73m2); Glucose 71 mg/dL (74-106); Potassium 3.6 mmol/L (3.5-5.1); Sodium 137 mmol/L (136-145); Total Protein 7.9 g/dL (6.4-8.2)
[2022-03-28 11:26] LABS: COVID-19 RT-PCR UVMMC Result Negative (Negative)
== END 2022-03-26 10:56 | disposition home or self-care (01) ==
LOC: NCHCN 10:55
PROVIDERS: PCP Nurse Practitioner Family; Visit Provider Nurse Practitioner Family
DX: N18.9 Chronic kidney disease, unspecified (principal); Z20.822 Contact with and (suspected) exposure to COVID-19; I10 Essential (primary) hypertension; R33.9 Retention of urine, unspecified
CPT/HCPCS: 80053; 87077; U0003; 81003; 81015; 85025; 87086; 87186

== ENCOUNTER 2022-04-02 17:38 | Inpatient (IN) | payer OTHER, SELFPAY ==
[2022-04-02] VITALS (17 sets, daily range): BP systolic 137–171; BP diastolic 66–122; PULSE 99–109; RESP 16–27; TEMP 36.8–37; O2SAT 83–95
--- NOTE | 2022-04-02 18:00 | DI.RAD_ITS ---
Exam(s) XR PORTABLE CHEST AP EXAM: XR PORTABLE CHEST AP CLINICAL HISTORY: SOB TECHNIQUE: COMPARISON: CR,XR XR PORTABLE CHEST AP from 07/09/2021 FINDINGS: Portable upright chest at 1830 hours. Diaphragm is markedly elevated on the left as noted on prior e xaminations. There is moderate gastric distension. Heart is enlarged. There are multiple sternal s utures. No gross acute intrapulmonary infiltrates seen. IMPRESSION: Stable appearance of chest from June 2021. RADIATION DOSE DELIVERED: Total DLP
--- NOTE | 2022-04-02 18:00 | RT.EKG_ITS ---
APPROVED REPORT Exam: Resting ECG Reason for Exam: weakness Patient Location: E HR:100 bpm ECG Measurements Heart Rate 100 AXIS WY 155 P 62 QRSd 84 QRS -7 QT 342 T 25 QTc 440 Conclusion Sinus tachycardia...rate> 99 Probable left atrial enlargement...P >50mS, <-0.10mV V1
--- NOTE | 2022-04-02 18:12 | W.ED.GENAD ---
Discharge Plan Disposition Patient Disposition: [facility] INPATIENT Condition: Stable Discharge Details Clinical Impression: Acute hyponatremia, Hypoxia Admit Date/Time: 04/02/22 20:47 Admit Provider: Lucio Hsieh Attending Provider: Lucio Hsieh Primary Care Provider: Prashanth Thayer ED Provider: Elvin Salinas Medical Decision Making 66-year-old female presents from home. She has an indwelling Brar catheter and was diagnosed with a UTI approximately 6 days ago, starting on ciprofloxacin in the past 5 days. Today she felt general weakness and some increased/new shortness of breath. She denies a cough or fever. She rushed here with a pulse of 100, she is afebrile, oxygenating 91% on room air. Depressed diagnosis includes pneumonitis, COPD exacerbation, metabolic abnormality or persistent UTI. Patient IV access established, screening labs obtained he is referred for chest x-ray. Chest x-ray shows no significant change to her baseline. No active infiltrate. Laboratories will note a white count of 10, hematocrit 38, platelets 280 with left shift present. Sodium is newly low at 128, potassium 3.4, chloride 88 and bicarb slightly elevated at 32. BUN is newly elevated at 31 and also creatinine at 1.7 (baseline of 14/1.0). Also noted low magnesium of 1.7. D-dimer is elevated at 3165. COVID screening negative. Urinalysis is unremarkable Sodium replacement and magnesium supplementation initiated in the ED. Must consider PE within the patient's differential diagnosis. As she has mild acute kidney injury, would favor hydration and deferred imaging study. Case discussed with Dr. Hsieh. Lab Data Labs: Laboratory Results - last 24 hr 04/02/22 04/02/22 04/02/22 19:20 19:20 19:30 WBC 10.65 RBC 4.42 Hgb 12.9 Hct 38.9 MCV 88 MCH 29.2 MCHC 33.2 RDW 12.6 Plt Count 280 MPV 9.1 Immature Gran % 0.5 Neutrophils % 81.6 Lymphocytes % 7.3 Monocytes % 9.6 Eosinophils % 0.6 Basophils % 0.4 Nucleated RBC % 0.0 Absolute Neutrophils 8.70 H Absolute Lymphocytes 0.78 L Absolute Monocytes 1.02 H Absolute Eosinophils 0.06 Absolute Basophils 0.04 Sodium 128 L Potassium 3.4 L Chloride 88 L Carbon Dioxide 32.4 H Anion Gap 7.6 BUN 31 H Creatinine 1.7 H Estimated GFR/1.73 m2 30.07 Glucose 116 H Calcium 9.1 Magnesium 1.7 L Total Bilirubin 0.4 AST 23 ALT 25 Alkaline Phosphatase 108 Total Protein 8.3 H Albumin 3.4 Urine Color Yellow Urine Clarity Clear Urine pH 6.5 Ur Specific [place] 1.010 Urine Protein Negative Urine Ketones Negative Urine Blood Small H Urine Nitrite Negative Urine Bilirubin Negative Urine Urobilinogen 0.2 Ur Leukocyte Esterase Negative Urine RBC 3-5 H Urine WBC Negative Ur Epithelial Cells Negative Urine Crystals Negative Urine Bacteria Negative Urine Casts Negative Urine Mucus Negative Ur Culture Indicated? No Urine Glucose Negative HPI General Mode of arrival: ambulatory. Date/Time Provider Initiated Documentation: 04/02/22 17:46. Limitations to Documentation: no limitations. Information obtained by: patient. History of Present Illness 66 year old F presents to the emergency department with the chief complaint of General weakness and shortness of breath, described as moderate, and is localized to the chest. Patient reports no radiation. Patient started experiencing this hour(s) and it has been constant. No relieving factors improve symptom(s), No exacerbating factors reported . Patient notes weakness; denies chest pain, cough and fever/chills. Patient did receive the following treatments prior to arrival, other (On ciprofloxacin) Related Data Home Medications Medication Instructions Recorded Confirmed acetaminophen 500 mg tablet 1,000 mg PO TID PRN PRN pain #90 03/13/21 04/02/22 tabs sennosides 8.6 mg tablet 8.6 mg PO BID PRN 04/16/21 04/02/22 zolpidem 5 mg tablet (Ambien) 5 mg PO QHS PRN insomnia 04/16/21 04/02/22 lidocaine 5 % topical patch 1 patch topical DAILY PRN pain #30 05/25/21 04/02/22 (Lidoderm) ea ondansetron 4 mg disintegrating 4 mg PO Q8H PRN nausea and 07/03/21 04/02/22 tablet vomiting #30 tabs folic acid 1 mg tablet 1 mg PO DAILY AM #30 tabs 07/14/21 04/02/22 pantoprazole 40 mg tablet,delayed See Rx Instructions .Route 07/14/21 04/02/22 release .COMPLEX #42 tabs pyridostigmine bromide 180 mg 180 mg PO HS 10/09/21 04/02/22 tablet,extended release (Mestinon Timespan) gabapentin 300 mg capsule 1,500 mg PO DIRECTED 12/22/21 04/02/22 cyclobenzaprine 10 mg tablet See Rx Instructions PO .COMPLEX 01/04/22 04/02/22 #270 tabs fentanyl 75 mcg/hr transdermal 1 patch transdermal Q72H 01/28/22 04/02/22 patch lisinopril 5 mg tablet 10 mg PO DAILY 02/03/22 04/02/22 furosemide 20 mg tablet 20 mg PO DAILY #30 tabs 03/18/22 04/02/22 Previous Rx's Medication Instructions Recorded acetaminophen 500 mg tablet 1,000 mg PO TID PRN PRN pain #90 03/13/21 tabs lidocaine 5 % topical patch 1 patch topical DAILY PRN pain #30 05/25/21 (Lidoderm) ea ondansetron 4 mg disintegrating 4 mg PO Q8H PRN nausea and 07/03/21 tablet vomiting #30 tabs folic acid 1 mg tablet 1 mg PO DAILY AM #30 tabs 07/14/21 pantoprazole 40 mg tablet,delayed See Rx Instructions .Route 07/14/21 release .COMPLEX #42 tabs cyclobenzaprine 10 mg tablet See Rx Instructions PO .COMPLEX 01/04/22 #270 tabs furosemide 20 mg tablet 20 mg PO DAILY #30 tabs 03/18/22 Allergies Allergy/AdvReac Type Severity Reaction Status Date / Time codeine Allergy Severe pt unsure Verified 02/03/22 13:46 of reaction iodine Allergy Severe pt unsure Verified 02/03/22 13:46 of reaction Penicillins Allergy Severe Anaphylaxsi Verified 02/03/22 13:46 s Sulfa (Sulfonamide Allergy Severe Swelling/Ed Verified 02/03/22 13:46 Antibiotics) kendal trazodone AdvReac Intermediate PER PT Verified 02/03/22 13:46 MAKES HER HEART RACE. General Stated Complaint: GenMedical ZEV: 3 Review of Systems Narrative: Has indwelling Brar catheter, was diagnosed with a UTI and placed on ciprofloxacin and 5 days ago. No fever or chills. Denies chest pain or cough. 8 systems were reviewed and otherwise negative. PFSH All Active Problems (Updated 04/02/22 @ 21:05 by Elvin Salinas MD) Acute hyponatremia (Acute) Hypoxia (Acute) Bursitis of left shoulder (Acute) Rupture of left proximal biceps tendon (Acute) Ulnar neuropathy of left upper extremity (Acute) Carpal tunnel syndrome of left wrist (Acute) Left shoulder pain (Acute) Gastric ulcer (Acute) Pyuria (Acute) Protein malnutrition (Acute) Acute anemia (Acute) Generalized weakness (Acute) Acute GI bleeding (Acute) DNI (do not intubate) (Acute) DNR (do not resuscitate) (Acute) POLST (Physician Orders for Life-Sustaining Treatment) (Acute) COLST completed 10/30/2020 with Jennifer Lugo, MAUREEN, DNR/DNI Constipation, chronic (Acute) Ataxia (Acute) Left hand weakness (Acute) Chronic renal insufficiency (Acute) Chronic pain (Chronic) Asymptomatic microscopic hematuria (Acute) Myasthenia gravis (Chronic) GERD (gastroesophageal reflux disease) (Chronic) Intracranial arachnoid cyst (Chronic) COPD (chronic obstructive pulmonary disease) (Chronic) Medical History Anxiety Arachnoid cyst Blood loss anemia Blurred vision Bunion of unspecified foot Dental caries Depression Enterococcus UTI Former smoker [place] History of gluten intolerance History of lacunar cerebrovascular accident Hyperlipidemia Hypertension Hypokalemia Insomnia previous misuse of Ambien Left arm weakness Migraine headache without aura Neurogenic bladder Neuropathic pain of both legs Pain Peripheral neuropathy Prediabetes Spasticity Spinal stenosis Syrinx of spinal cord Starting at C3 and extending to T11 Urinary frequency Urinary retention Weakness Surgical History H/O craniotomy ; L cerebellar arachnoid cyst drain with shunt placement H/O esophagogastroduodenoscopy (~07/2021) 09/2021 H/O thymectomy 1980s S/P appendectomy S/P cystourethroscopy with dilation of urethral stricture S/P tonsillectomy Family History Mother Diabetes Father Neuropathy Back problem Brother Myasthenia gravis Social History Smoking/Tobacco Use Status: Former Tobacco Use Quit Date: 08/15/16 Smoking risk assessment performed?: Yes Alcohol Intake: former Drug use: Never Substance use type: does not use Household members: other Housing: [facility] Number of Children: 0 Pets and animals: No Current gender identity: female What type of physical activity do you participate in: none Seatbelt use: always Do you feel safe at home: Yes (Pt lives alone) Do you feel safe in your relationship?: No Exam Narrative Exam Narrative: GEN: awake, alert, oriented 3. Pleasant, well groomed, interactive. HEAD: Normocephalic, atraumatic ENT: Mucous membranes dry, oropharynx unremarkable, External ear exam unremarkable EYES: PERRL, EOMI NECK: Full ROM, no GOYO, no menigismus CHEST/RESP: Nontender, diminished bilaterally CARDIOVASCULAR: RRR, no murmur, rub lew. 2+ Rad pulse bilateral ABDOMEN: Soft, suprapubic catheter in place, nontender, no mass. +Bowel sounds EXT: Full ROM, no edema, no rash Neuro: Grossly normal neurologic exam, conversant, interactive. Psych: Speech fluent, thoughts congruent, affect normal Course Vital Signs Vital signs: Vital Signs Temperature 36.8 C 04/02/22 17:39 Pulse 101 H 04/02/22 17:39 Respiratory Rate 20 04/02/22 17:39 Blood Pressure 171/111 H 04/02/22 17:39 Pulse Oximetry 91 L 04/02/22 17:39 Temperature 36.8 C 04/02/22 17:39 Temperature Source Temporal Artery Scan 04/02/22 17:39 Pulse 101 H 04/02/22 17:39 Respiratory Rate 20 04/02/22 17:39 Blood Pressure 171/111 H 04/02/22 17:39 Blood Pressure Position Sitting 04/02/22 17:39 Pulse Oximetry 91 L 04/02/22 17:39 Oxygen Delivery Method Room Air 04/02/22 17:39 Oxygen Flow Rate 0 04/02/22 17:39
--- NOTE | 2022-04-02 18:56 | DI.VRAD_ITS ---
PROCEDURE INFORMATION: Exam: Portable XR Chest Exam date and time: 04/02/2022 6:10 PM Age: 66 years old Clinical indication: Shortness of breath; Additional info: SOB TECHNIQUE: Imaging protocol: Portable radiologic exam of the chest. Views: 1 view. COMPARISON: 1. CR XR PORTABLE CHEST AP 07/09/2021 1:55 PM 2. MR UPPER JOINT LT WO 01/19/2022 8:29 AM 3. CR XR SHOULDER LT COMPLETE 2+V 12/22/2021 2:17 PM FINDINGS: Tubes, catheters and devices: There is tubing looped at the level of the left upper quadrant adjacent to the gastric bubble. Clinical correlation is recommended. Lungs: Unremarkable. No consolidation. Pleural spaces: Unremarkable. No pleural effusion. No pneumothorax. Heart/Mediastinum: The patient is status post CABG. There are arteriosclerotic changes of the aorta. Diaphragm: The left hemidiaphragm is again noted be elevated. Bones/joints: The patient is status post sternotomy. There are degenerative changes of the thoracic spine. IMPRESSION: No significant change when compared to the prior study. Please see discussion above. Dictated and Authenticated by: Jeremy Anthony MD. Ordering:PHOENIX Oconnor MD
[2022-04-02] MEDS: Albuterol/Ipratropium 3 ML UPD VIAL UPD (19:30)
[2022-04-02] MEDS: Normal Saline 1,000 ML 150 ML IV ×2 (19:30→22:43)
[2022-04-02 19:44] LABS: Abs Immature Grans 0.05 10^3/uL (0.0-0.06); Absolute Basophil Count 0.04 10^3/uL (0.0-0.2); Absolute Eosinophil Count 0.06 10^3/uL (0.0-0.7); Absolute Lymphocyte Count 0.78 10^3/uL (1.2-3.4); Absolute Monocyte Count 1.02 10^3/uL (0.1-0.8); Basophils % 0.4; Eosinophils % 0.6; HCT 38.9 % (36.0-46.0); HGB 12.9 g/dL (11.2-15.7); Immature Grans % 0.5; Lymphocytes % 7.3; MCH 29.2 pg (27.0-33.0); MCHC 33.2 % (32.0-36.0); MCV 88 fL (80-95); MPV 9.1 fL (8.0-11.0); Monocytes % 9.6; Neutrophils % 81.6; Platelet Count 280 10^3/uL (130-400); RBC 4.42 10^6/uL (3.93-5.22); RDW 12.6 % (11.7-14.6); RDW-SD 41.2 fL; WBC 10.65 10^3/uL (4.4-10.8)
[2022-04-02 19:45] LABS: Bilirubin Negative (Negative); Blood Small (Negative); Clarity Clear (Clear); Glucose Negative (Negative); Ketones Negative (Negative); Leukocyte Esterase Negative (Negative); Nitrite Negative (Negative); Urobilinogen 0.2 EU/dL (Up TO 0.2); pH 6.5 (5-8)
[2022-04-02 19:53] LABS: Bacteria Negative HPF (Negative); C & S Indicated? No; Casts Negative LPF (Negative); Crystals Negative HPF (Negative); Epithelial Cells Negative HPF (Negative); Mucus Negative (Negative); WBC Negative HPF (0-5)
[2022-04-02 19:59] LABS: ALT 25 U/L (14-59); AST 23 U/L (15-37); Albumin 3.4 g/dL (3.4-5.0); Alkaline Phosphatase 108 U/L (46-116); Anion Gap 7.6 mmol/L (3-11); BUN 31 mg/dL (7-18); Bilirubin, Total 0.4 mg/dL (0.2-1.0); CO2 32.4 mmol/L (21.0-32.0); CREATININE 1.7 mg/dL (0.55-1.02); Calcium 9.1 mg/dL (8.5-10.1); Chloride 88 mmol/L (98-107); Estimated GFR 30.07 (mL/min/1.73m2); Glucose 116 mg/dL (74-106); Magnesium 1.7 mg/dL (1.8-2.4); Potassium 3.4 mmol/L (3.5-5.1); Sodium 128 mmol/L (136-145); Total Protein 8.3 g/dL (6.4-8.2)
[2022-04-02 20:20] LABS: D-Dimer 3165 ng/mlFEU (<500)
[2022-04-02 20:21] LABS: COVID-19 PCR Negative (Negative); Influenza A PCR Negative (Negative); Influenza B PCR Negative (Negative); RSV PCR Negative (Negative)
[2022-04-02] MEDS: MAGNESIUM SULFATE 1 GM/100 ML BAG IVPB (20:59)
[2022-04-02] MEDS: Enoxaparin 80 MG/0.8 ML SYR SC (21:30)
[2022-04-02 21:41] LABS: Troponin I 94 ng/L (<or=60)
--- NOTE | 2022-04-02 22:24 | W.PM.HP.N ---
Date of service: 04/02/22 Time of Service: 22:24 Assessment and Plan Assessment and plan (1) Hypoxia: Status: Acute Assessment and plan: She has known COPD but clinically does not appear to be a COPD exacerbation (no cough or sputum production and not wheezing), CXR is clear and she has acute dyspnea and tachycardia w/ elevated d-dimer. P.E. needs to be considered and treated until proven otherwise; also her troponin is mildly elevated but without EKG changes. will trend troponin, repeat d-dimer in the morning and get CTA in the a.m. if renal reserve is adequate; i.e. if creatinine is <1.5 ddx: included hypoventilation, COPD; however this does not explain her d-dimer and her tachycardia; I performed POCUS exam of her legs and the veins of both legs were compressible; limited echo (could not get good A4C view) did not show any LV or RV dysfunction (2) Prerenal azotemia: Status: Acute Assessment and plan: continue iv saline and correct electrolyte abnormalities as outlined below; repeat labs in the morning. once she is eating and drinking adequately, then dc her iv fluids tomorrow. (3) Acute hyponatremia: Status: Acute Assessment and plan: secondary to chronic diuretic use; hold diuretics for tonight as she is dehydrated/azotemic; continue NS per iv for tonight and recheck labs in the morning; if taking po well tomorrow then can dc iv fluids (4) Acute hypokalemia: Status: Acute Assessment and plan: secondary to poor po intake over last few days and continued use of lasix. replete w/ oral supplementation, recheck electrolytes in the a.m. (5) Hypomagnesemia: Status: Acute Assessment and plan: given iv magnesium sulfate 1 gm; will add oral supplementation and repeat level in the a.m. (6) Myasthenia gravis: Status: Chronic (7) GERD (gastroesophageal reflux disease): Status: Chronic Assessment and plan: patient takes protonix 40 mg daily; however, lately she has been experiencing some choking spells w/ pills; feels like they get stuck in her throat; will have MIXING AND DISPENSING SUPERVISOR see her. Will put on a modified diet of minced/moist w/ thin liquids. pills should be crushed (8) COPD (chronic obstructive pulmonary disease): Status: Chronic Assessment and plan: this dx is listed in her chart; she is a former smoker who quit several years ago; however, she is not on oxygen at home and is not on routine bronchodilators. She should have updated PFT as OP. 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 She presented w/ SPO2 of 91% on room air and tachycardic HR 100 but not hypotensive (acutally hypertensive at 171/11) and afebrile. Workup in the ER included CXR that was unremarkable for any acute cardiopulmonary changes (she is s/p CABG w/ arterioslcerotic aortic changes, chronic left hemidiaphragm elevation) but no effusions or infiltrates. EKG demonstrated sinus tachycardia @ [address]-T changes but possible LAE, early R wave transition at V2 (?pulmonary pattern). Labs were remarkable for elevated d-dimer of 3165, troponin 94, hyponatremia (128), hypokalemia (3.4), hypochloridema (88), and azotemia (BUN 31, creatinine 1.7; baseline is 12 and 1.0), and hypomagnesemia (1.7) but normal CBC. Patient was begun on NS @ 150 mL/hr and given lovenox 80 mg SC for empiric treatment for PE. CTA was not done d/t her azotemia. Hopefully will be able to get definitive CTA in the a.m. once renal function has improved. Patient gave me the additional information that she thought that she was having a reaction to the Cipro she was given for the UTI in that she was feeling confused, weak and dizzy. However she has had no rash, nausea or vomting and no swelling of her tongue or mouth although she does complain of some difficult w/ swallowing meds. Review of Systems All systems reviewed & are unremarkable except as noted in HPI and below PFSH All Active Problems (Updated 04/03/22 @ 01:24 by Lucio Hsieh MD) Prerenal azotemia (Acute) DVT prophylaxis (Acute) Hypomagnesemia (Acute) Acute hypokalemia (Acute) Acute hyponatremia (Acute) Hypoxia (Acute) Bursitis of left shoulder (Acute) Rupture of left proximal biceps tendon (Acute) Ulnar neuropathy of left upper extremity (Acute) Carpal tunnel syndrome of left wrist (Acute) Left shoulder pain (Acute) Protein malnutrition (Acute) Generalized weakness (Acute) DNI (do not intubate) (Acute) DNR (do not resuscitate) (Acute) POLST (Physician Orders for Life-Sustaining Treatment) (Acute) COLST completed 10/30/2020 with Jennifer Lugo, MARKET RISK SPECIALIST, DNR/DNI Constipation, chronic (Acute) Ataxia (Acute) Left hand weakness (Acute) Chronic renal insufficiency (Acute) Chronic pain (Chronic) Asymptomatic microscopic hematuria (Acute) Myasthenia gravis (Chronic) GERD (gastroesophageal reflux disease) (Chronic) Intracranial arachnoid cyst (Chronic) COPD (chronic obstructive pulmonary disease) (Chronic) Medical History (Updated 04/03/22 @ 01:24 by Lucio Hsieh MD) Anxiety Arachnoid cyst Blood loss anemia Blurred vision Bunion of unspecified foot Dental caries Depression Former smoker Frequent falls Gastric ulcer History of gluten intolerance History of lacunar cerebrovascular accident Hyperlipidemia Hypertension Hypokalemia Insomnia previous misuse of Ambien Left arm weakness Migraine headache without aura Neurogenic bladder Neuropathic pain of both legs Pain Peripheral neuropathy Prediabetes Spasticity Spinal stenosis Syrinx of spinal cord Starting at C3 and extending to T11 Urinary frequency Urinary retention Weakness Surgical History H/O craniotomy ; L cerebellar arachnoid cyst drain with shunt placement H/O esophagogastroduodenoscopy (~07/2021) 09/2021 H/O thymectomy 1980s S/P appendectomy S/P cystourethroscopy with dilation of urethral stricture S/P tonsillectomy Family History Mother Diabetes Father Neuropathy Back problem Brother Myasthenia gravis Social History Smoking/Tobacco Use Status: Former Tobacco Use Quit Date: 08/15/16 Smoking risk assessment performed?: Yes Alcohol Intake: former Drug use: Never Substance use type: does not use Household members: other Housing: residential Number of Children: 0 Pets and animals: No Current gender identity: female What type of physical activity do you participate in: none Seatbelt use: always Do you feel safe at home: Yes (Pt lives alone) Do you feel safe in your relationship?: No Meds Allergies and Home Medications Allergies Allergy/AdvReac Type Severity Reaction Status Date / Time codeine Allergy Severe pt unsure Verified 02/03/22 13:46 of reaction iodine Allergy Severe pt unsure Verified 02/03/22 13:46 of reaction Penicillins Allergy Severe Anaphylaxsi Verified 02/03/22 13:46 s Sulfa (Sulfonamide Allergy Severe Swelling/Ed Verified 02/03/22 13:46 Antibiotics) kendal trazodone AdvReac Intermediate PER PT Verified 02/03/22 13:46 MAKES HER HEART RACE. Home Medications Medication Instructions Recorded Confirmed Type acetaminophen 500 mg tablet 1,000 mg PO TID PRN PRN pain #90 03/13/21 04/02/22 Rx tabs sennosides 8.6 mg tablet 8.6 mg PO BID PRN 04/16/21 04/02/22 History zolpidem 5 mg tablet (Ambien) 5 mg PO QHS PRN insomnia 04/16/21 04/02/22 History lidocaine 5 % topical patch 1 patch topical DAILY PRN pain #30 05/25/21 04/02/22 Rx (Lidoderm) ea ondansetron 4 mg disintegrating 4 mg PO Q8H PRN nausea and 07/03/21 04/02/22 Rx tablet vomiting #30 tabs folic acid 1 mg tablet 1 mg PO DAILY AM #30 tabs 07/14/21 04/02/22 Rx pantoprazole 40 mg tablet,delayed See Rx Instructions .Route 07/14/21 04/02/22 Rx release .COMPLEX #42 tabs pyridostigmine bromide 180 mg 180 mg PO HS 10/09/21 04/02/22 History tablet,extended release (Mestinon Timespan) gabapentin 300 mg capsule 1,500 mg PO DIRECTED 12/22/21 04/02/22 History cyclobenzaprine 10 mg tablet See Rx Instructions PO .COMPLEX 01/04/22 04/02/22 Rx #270 tabs fentanyl 75 mcg/hr transdermal 1 patch transdermal Q72H 01/28/22 04/02/22 History patch lisinopril 5 mg tablet 10 mg PO DAILY 02/03/22 04/02/22 History furosemide 20 mg tablet 20 mg PO DAILY #30 tabs 03/18/22 04/02/22 Rx Exam Narrative Exam Narrative: Missy is lying in bed in semi-Ward position in no acute distress, she is not tachypneic and she is not wearing any oxygen at the moment HEENT: dry mucous membranes, no exudate Neck: supple, no adenopathy, normal carotid pulses albeit tachycardic, no JVD Lungs: clear w/ diminshed breath sounds at the bases; no wheezes or rhonchi Heart: tachycardic, regular; apical impulse is displaced over the the left sternal border Abdomen: soft, nontender; no organomegaly; suprapubic catheter in place Legs: bilateral lower leg edema; 2+, non-pitting Neuro: no focal CN deficits; normal upper arm ROM and strength; bilateral leg weakness, she is able to weakly dorsiflex both feet but unable to plantar flex and she is unable to flex at the knees or hips secondary to her myelopathy No rashes or skin breakdown Results Labs Result diagrams: 04/02/22 19:20 04/02/22 19:20 Labs: Laboratory Results - last 24 hr 04/02/22 04/02/22 04/02/22 19:20 19:20 19:20 WBC 10.65 RBC 4.42 Hgb 12.9 Hct 38.9 MCV 88 MCH 29.2 MCHC 33.2 RDW 12.6 Plt Count 280 MPV 9.1 Immature Gran % 0.5 Neutrophils % 81.6 Lymphocytes % 7.3 Monocytes % 9.6 Eosinophils % 0.6 Basophils % 0.4 Nucleated RBC % 0.0 Absolute Neutrophils 8.70 H Absolute Lymphocytes 0.78 L Absolute Monocytes 1.02 H Absolute Eosinophils 0.06 Absolute Basophils 0.04 D-Dimer 3165 H Sodium 128 L Potassium 3.4 L Chloride 88 L Carbon Dioxide 32.4 H Anion Gap 7.6 BUN 31 H Creatinine 1.7 H Estimated GFR/1.73 m2 30.07 Glucose 116 H Calcium 9.1 Magnesium 1.7 L Total Bilirubin 0.4 AST 23 ALT 25 Alkaline Phosphatase 108 Troponin I Total Protein 8.3 H Albumin 3.4 Urine Color Urine Clarity Urine pH Ur Specific [place] Urine Protein Urine Ketones Urine Blood Urine Nitrite Urine Bilirubin Urine Urobilinogen Ur Leukocyte Esterase Urine RBC Urine WBC Ur Epithelial Cells Urine Crystals Urine Bacteria Urine Casts Urine Mucus Ur Culture Indicated? Urine Glucose COVID-19 Source SARS-CoV-2 (PCR) Influenza Type A (PCR) Influenza Type B (PCR) RSV (PCR) 04/02/22 04/02/22 04/02/22 19:30 19:30 21:17 WBC RBC Hgb Hct MCV MCH MCHC RDW Plt Count MPV Immature Gran % Neutrophils % Lymphocytes % Monocytes % Eosinophils % Basophils % Nucleated RBC % Absolute Neutrophils Absolute Lymphocytes Absolute Monocytes Absolute Eosinophils Absolute Basophils D-Dimer Sodium Potassium Chloride Carbon Dioxide Anion Gap BUN Creatinine Estimated GFR/1.73 m2 Glucose Calcium Magnesium Total Bilirubin AST ALT Alkaline Phosphatase Troponin I 94 H* Total Protein Albumin Urine Color Yellow Urine Clarity Clear Urine pH 6.5 Ur Specific [place] 1.010 Urine Protein Negative Urine Ketones Negative Urine Blood Small H Urine Nitrite Negative Urine Bilirubin Negative Urine Urobilinogen 0.2 Ur Leukocyte Esterase Negative Urine RBC 3-5 H Urine WBC Negative Ur Epithelial Cells Negative Urine Crystals Negative Urine Bacteria Negative Urine Casts Negative Urine Mucus Negative Ur Culture Indicated? No Urine Glucose Negative COVID-19 Source Not Applicable SARS-CoV-2 (PCR) Negative Influenza Type A (PCR) Negative Influenza Type B (PCR) Negative RSV (PCR) Negative Last Vital Signs Temp 37.0 C 04/02/22 21:50 Pulse 103 H 04/02/22 21:54 Resp 16 04/02/22 21:50 BP 151/75 H 04/02/22 21:50 Pulse Ox 93 04/02/22 21:50
[2022-04-02] MEDS: Melatonin 3 MG TAB 6 MG PO (22:44)
[2022-04-02] MEDS: Potassium Chloride 10 MEQ CAPCR 40 MEQ PO (22:44)
[2022-04-02] MEDS: Cyclobenzaprine 10 MG TAB 20 MG PO (23:18)
[2022-04-02] MEDS: Gabapentin 300 MG CAP 600 MG PO (23:18)
[2022-04-03] VITALS (10 sets, daily range): BP systolic 127–182; BP diastolic 51–118; PULSE 91–108; RESP 16–22; TEMP 36.5–37.2; O2SAT 91–93
--- NOTE | 2022-04-03 | DI.CT_ITS ---
Exam(s) CT CHEST PE CTA EXAM: CT CHEST PE CTA CLINICAL HISTORY: concern for acute PE. TECHNIQUE: Imaging Protocol: Axial CT angiography was performed with multi-slice acquisition and mu lti-planar and/or 3D reconstructions. CONTRAST MATERIAL: Intravenous: Omnipaque 350 Contrast volume:structured data in ml COMPARISON: CT CT ABDOMEN PELVIS W from 03/24/2021 FINDINGS: CT angiography of the chest was performed with intravenous infusion of 63 cc of Omnipaque 350. The lungs are predominantly clear with areas of atelectasis in the lung bases, particularly on the le ft, where there is an elevated diaphragm period. Trace left and right pleural effusions. Tracheobron chial tree appears intact. No evidence of pulmonary embolic disease. Thoracic aorta is of normal diameter, no thoracic aortic an eurysm or dissection, major branch vessels appear intact. No mediastinal or hilar adenopathy. Images obtained through the upper abdomen show unremarkable appearance of the visualized portions of the liver and spleen. Note is made of a posteriorly located fluid collection with somewhat thick rim in the upper thoracic region associated with posterior fusion defect of the thoracic spine, the fluid collection measures a bout 7.1 x 3.7 x 5.9 cm. Differential diagnosis includes a meningiocele, pseudo meningocele, abscess or seroma, please correlate clinically. IMPRESSION: Negative CT angiogram of the chest. No evidence of pulmonary embolic disease. Incidental posterior fluid collection with associated spinal deformity, please see above discussion, clinical correlation requested. RADIATION DOSE DELIVERED: 425.24mGy.cm Total DLP 425.24mGy.cm Total DLP !Error CTDIvol DATA REPOSITORY: All CT scans at this facility are submitted to the National Radiology Data Registry (NRDR) Dose Index Registry (DIR) with the [employer] (ACR). RADIATION OPTIMIZATION: All CT scans at this facility use at least one of these dose optimization te chniques: automated exposure control; mA and/or kV adjustment per patient size (includes targeted exa ms where dose is matched to clinical indication); or iterative reconstruction.
--- NOTE | 2022-04-03 00:30 | POCUS_ITS ---
Pocus Exam Limited Vascular Exam DATE OF EXAM: 04/02/22 TIME OF EXAM: 23:10 PROVIDER THAT PERFORMED THE STUDY: Lucio Hsieh IS THIS A REPEAT STUDY: No Vascular Exam: Left lower extremity REASON FOR EXAM: Left lower extremity s welling/edema VISUALIZED STRUCTURES: Left common femoral vein, Left popliteal vein, Left superficial femoral vein and Left greater saphenous vein PERTINENT FINDINGS/IMPRESSION: Compressible veins left leg Exam Complete and Right lower extremity REASON FOR EXAM: Right lower extremity swelling/edema VISUALIZED STRUCTURES: Right common femoral vein, Right popliteal vein, Right superficial femoral vein and Right greater saphenous vein PERTINENT FINDINGS/IMPRESSION: Compressible veins right leg Exam Complete DIFFERENTIAL DIAGNOSES: Bilteral venous compression throughout both legs; no DVT INCIDENTAL FINDINGS: left medial thigh, 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
--- NOTE | 2022-04-03 00:40 | W.POCUS ---
Pocus Exam Limited Cardiac Exam DATE OF EXAM: 04/03/22 TIME OF EXAM: 00:40 PROVIDER THAT PERFORMED THE STUDY: Lucio Hsieh REASON FOR EXAM: Dyspnea and Right heart strain/PE VISUALIZED STRUCTURES: Left atrium, Left ventricle, LVOT, Right atrium, Right ventricle, Aortic valve, Mitral valve, Interventricular septum and IVC VIEW OBTAINED: Parasternal long-axis, Parasternal short-axis and Subxiphoid PERTINENT FINDINGS/IMPRESSION: IVC inspiratory collapsability and Pericardial effusion (trivial); No LV dysfunction, No RV dilation and No RV dysfunction Exam complete
[2022-04-03 00:59] LABS: Troponin I 144 ng/L (<or=60)
--- NOTE | 2022-04-03 01:53 | NUR.NOTE ---
Nursing Note: Patient arrived from ED with (Three) 72mcg Fentanyl patches from home on her left inner arm. Patient has did not remove the last two patches prior to placing her new patch on 04/01 afternoon. This RN removed the two oldest patches once discovered and patient educated on patch donning/doffing.
[2022-04-03] MEDS: Lidocaine 5% Patch 1 PATCH TP (02:20)
[2022-04-03] MEDS: Folic Acid 1 MG TAB PO (04:58)
[2022-04-03] MEDS: Normal Saline 1,000 ML 150 ML IV (04:58)
[2022-04-03 06:50] LABS: Abs Immature Grans 0.03 10^3/uL (0.0-0.06); Absolute Basophil Count 0.03 10^3/uL (0.0-0.2); Absolute Lymphocyte Count 0.83 10^3/uL (1.2-3.4); Absolute Monocyte Count 0.89 10^3/uL (0.1-0.8); Absolute Neutrophil Count 6.03 10^3/uL (1.2-6.7); Basophils % 0.4; Eosinophils % 1.3; HCT 34.9 % (36.0-46.0); HGB 11.3 g/dL (11.2-15.7); Immature Grans % 0.4; Lymphocytes % 10.5; MCHC 32.4 % (32.0-36.0); MCV 90 fL (80-95); MPV 9.1 fL (8.0-11.0); Monocytes % 11.3; Neutrophils % 76.1; Platelet Count 272 10^3/uL (130-400); RDW 12.9 % (11.7-14.6); RDW-SD 42.2 fL; WBC 7.91 10^3/uL (4.4-10.8)
[2022-04-03 07:15] LABS: ALT 19 U/L (14-59); AST 18 U/L (15-37); Albumin 2.6 g/dL (3.4-5.0); Alkaline Phosphatase 90 U/L (46-116); Anion Gap 5.7 mmol/L (3-11); BUN 25 mg/dL (7-18); Bilirubin, Total 0.2 mg/dL (0.2-1.0); CO2 31.3 mmol/L (21.0-32.0); CREATININE 1.4 mg/dL (0.55-1.02); Calcium 8.4 mg/dL (8.5-10.1); Chloride 100 mmol/L (98-107); Estimated GFR 37.62 (mL/min/1.73m2); Glucose 119 mg/dL (74-106); Potassium 4.3 mmol/L (3.5-5.1); Sodium 137 mmol/L (136-145); Total Protein 6.7 g/dL (6.4-8.2)
[2022-04-03 07:17] LABS: Magnesium 1.8 mg/dL (1.8-2.4)
[2022-04-03 07:25] LABS: Troponin I 89 ng/L (<or=60)
[2022-04-03] MEDS: Magnesium Gluconate 500 MG TAB PO (08:58)
[2022-04-03] MEDS: Pantoprazole 40 MG TABCR PO (08:58)
[2022-04-03] MEDS: Gabapentin 300 MG CAP 600 MG PO ×2 (08:59→20:38)
[2022-04-03] MEDS: Potassium Chloride 20 MEQ TABCR PO (08:59)
[2022-04-03] MEDS: Enoxaparin 80 MG/0.8 ML SYR 70 MG SC (08:59)
[2022-04-03] MEDS: Acetaminophen 325 MG TAB PO ×2 (09:19→13:39)
[2022-04-03] MEDS: Ondansetron O.D.T. 4 MG TABEF PO (09:52)
[2022-04-03] MEDS: Normal Saline Flush 10 ML SYR IVP ×2 (10:00→11:15)
[2022-04-03] MEDS: Omnipaque 350 MG/ML 100 ML BTL 63 ML IJ (10:48)
[2022-04-03] MEDS: Lactated Ringers 1,000 ML 125 ML IV ×2 (10:55→18:49)
[2022-04-03] MEDS: methylPREDNISolone SUCC 125 MG VIAL IVP (11:14)
[2022-04-03] MEDS: Famotidine 20 MG/2 ML VIAL IVP (11:15)
[2022-04-03] MEDS: diphenhydrAMINE 50 MG/ML VIAL IVP (11:15)
--- NOTE | 2022-04-03 11:47 | DI.VRAD_ITS ---
PROCEDURE INFORMATION: Exam: CTA Chest With Contrast Exam date and time: 04/03/2022 10:32 AM Age: 66 years old Clinical indication: Pain; Other: Question of pe; Prior surgery; Surgery date: 6+ months TECHNIQUE: Imaging protocol: Computed tomographic angiography of the chest with contrast. 3D rendering (Not supervised by radiologist): MIP and/or 3D reconstructed images were created by the technologist. Contrast material: OMNIPAQUE 350; Contrast volume: 63 ml; Contrast route: INTRAVENOUS (IV); COMPARISON: 1. MR UPPER JOINT LT WO 01/19/2022 8:29 AM 2. XR PORTABLE CHEST AP 04/02/2022 6:10 PM FINDINGS: Pulmonary arteries: Normal. No pulmonary emboli. Aorta: Unremarkable. No aortic aneurysm. No aortic dissection. Thyroid: Heterogeneous thyroid containing subcentimeter hypoattenuating nodules. Lungs: Compressive left lower lobe and lingular atelectasis. Dependent right basilar atelectasis. No focal consolidation or suspicious pulmonary nodule. Pleural spaces: Trace pleural effusions. No pneumothorax. Heart: Unremarkable. No cardiomegaly. No pericardial effusion. Lymph nodes: Unremarkable. No enlarged lymph nodes. Diaphragm: Elevated left hemidiaphragm. Bones/joints: Thoracic levoscoliosis. Mild compression deformity of T9 and T11, no associated retropulsion. Median sternotomy. Large left subcoracoid bursal fluid collection, better characterized on dedicated MRI from 01/19/2022. Soft tissues: 7.1 x 3.7 x 5.9 cm fluid collection with thick surrounding rim within the soft tissues posterior to the upper thoracic spine, spanning approximately from T1-T6 (series 8 image 83 and series 10 image 63). Of note, the posterior elements are incompletely fused at this level. The fluid collection gets near the level of the posterior spinal canal with a possible non fluid-filled sinus tract between the spinal canal and fluid collection (series 8, image 53). IMPRESSION: 1. No pulmonary emboli. 2. 7.1 x 3.7 x 5.9 cm fluid collection within the soft tissues posterior to the upper thoracic spine. Differential includes pseudomeningocele, seroma and abscess. 3. Age indeterminate mild compression deformities of T9 and T11. No associated retropulsion. THIS REPORT CONTAINS FINDINGS THAT MAY BE CRITICAL TO PATIENT CARE. The findings were verbally communicated via telephone conference with Kat Mcintosh at 11:40 AM EDT on 04/03/2022. The findings were acknowledged and understood. Dictated and Authenticated by: Prashanth Peguero MD. Ordering:BUTCH Stephens MD
[2022-04-03] MEDS: Lidocaine Patch Removal 1 EACH TP (12:07)
--- NOTE | 2022-04-03 12:11 | INITIAL_ITS ---
- If Service Date Differs Date of service: 04/03/22 Time of Service: 12:11 Care Management Initial Assess REASON FOR HOSPITALIZATION:: Hypoxia PAST MEDICAL HISTORY/PAST SURGICAL HISTORY:: All Active Problems (Updated 04/03/22 @ 01:24 by Lucio Hsieh MD). Prerenal azotemia (Acute). DVT prophylaxis (Acute). Hypomagnesemia (Acute). Acute hypokalemia (Acute). Acute hyponatremia (Acute). Hypoxia (Acute). Bursitis of left shoulder (Acute). Rupture of left proximal biceps tendon (Acute). Ulnar neuropathy of left upper extremity (Acute). Carpal tunnel syndrome of left wrist (Acute). Left shoulder pain (Acute). Protein malnutrition (Acute). Generalized weakness (Acute). DNI (do not intubate) (Acute). DNR (do not resuscitate) (Acute). POLST (Physician Orders for Life-Sustaining Treatment) (Acute). COLST completed 10/30/2020 with Jennifer Lugo, MAUREEN, DNR/DNI. Constipation, chronic (Acute). Ataxia (Acute). Left hand weakness (Acute). Chronic renal insufficiency (Acute). Chronic pain (Chronic). Asymptomatic microscopic hematuria (Acute). Myasthenia gravis (Chronic). GERD (gastroesophageal reflux disease) (Chronic). Intracranial arachnoid cyst (Chronic). COPD (chronic obstructive pulmonary disease) (Chronic). Medical History (Updated 04/03/22 @ 01:24 by Lucio Hsieh MD). Anxiety. Arachnoid cyst. Blood loss anemia. Blurred vision. Bunion of unspecified foot. Dental caries. Depression. Former smoker. Frequent falls. Gastric ulcer. History of gluten intolerance. History of lacunar cerebrovascular accident. Hyperlipidemia. Hypertension. Hypokalemia. Insomnia. previous misuse of Ambien. Left arm weakness. Migraine headache without aura. Neurogenic bladder. Neuropathic pain of both legs. Pain. Peripheral neuropathy. Prediabetes. Spasticity. Spinal stenosis. Syrinx of spinal cord. Starting at C3 and extending to T11. Urinary frequency. Urinary retention. Weakness. Surgical History . H/O craniotomy. ; L cerebellar arachnoid cyst drain with shunt placement. H/O esophagogastroduodenoscopy (~07/2021). 09/2021. H/O thymectomy. 1980s. S/P appendectomy. S/P cystourethroscopy with dilation of urethral stricture. S/P tonsillectomy PREVIOUS FUNCTIONAL STATUS/SOCIAL/FAMILY SUPPORTS:: Missy lives alone in an apartment in the [facility].She does not have any family in the area and only communicates with her [id number] in [place]. Missy has myasthenia gravis and requires assistance. At baseline she is able to transfer bed to chair/wheelchair and commode and back. She has OT support through [facility] for assistance with showering twice a week and RN visits every other week. Missy has [facility] moderate needs and has a friend Nina Trinidad who has been helping her and is paid through that program. She does grocery shopping, housekeeping and laundry for Missy. CURRENT FUNCTIONAL STATUS:: Missy was sitting up in bed when CM met with her. She was agreeable to conversation and engaged easily with CM. Missy discussed the services she currently receives which include home health nursing and OT as well as [facility]. She gets one full meal a day at lunchtime at [facility] where she lives and just snacks at dinner time. Missy seees a therapist who comes to her home twice a month and her friend Nina is the person who is paid to assist her. Missy did request information about cremation and various crematoriums, which CM provided. ADVANCE DIRECTIVES:: [facility] on file. [id number] Niharika Kim listed as [facility] on [facility] form Has patient been provided with info about the portal/API?: Yes Did the patient sign up for the portal?: No CODE STATUS:: DNR/DNI INSURANCE COVERAGE / FINANCIAL ISSUES:: Medicare CURRENT HOME/COMMUNITY SERVICES/EQUIPMENT:: [facility] Moderate needs - Has some car egiver support. Home health nursing every other week and OT for showering. Meals on Wheels through [facility]. Missy has 2 wheelchairs and a walker PRIMARY CARE PHYSICIAN:: Prashanth Thayer POTENTIAL DISCHARGE NEEDS:: Follow up with PCP PATIENT/FAMILY EDUCATION NEEDS:: Expectations, limitations, activity, review of discharge instructions, Ask Me Three TRANSPORTATION:: RCT w/c van PLAN:: Missy will lkikely return home with a rewsumption of services which include: She will follow up with her PCP and oplan of care and transport via. CM will continue to support Missy and her discharge needs.
[2022-04-03] MEDS: Cyclobenzaprine 10 MG TAB PO (13:39)
[2022-04-03] MEDS: Gabapentin 300 MG CAP PO (13:39)
--- NOTE | 2022-04-03 15:25 | W.PM.PROGNOT ---
Date of Service Date of service: 04/03/22 Time of Service: 15:25 Assessment and Plan Assessment and plan (1) Hypoxia: Status: Resolved Assessment and plan: I do not see evidence of COPD exacerbation on exam today. PE ruled out. Suspect atelectasis. Encourage IS. (2) Fluid collection at surgical site: Status: Acute Assessment and plan: Consulting [facility] neurosurgery where the patient had her neurosurgical intervention to have a neurosurgical opinion on need for a possible intervention. (3) Neurogenic bowel: Status: Acute Assessment and plan: Schedule a bowel regimen. (4) Prerenal azotemia: Status: Acute Assessment and plan: Continue IVF. (5) Acute hyponatremia: Status: Acute Assessment and plan: Improved. Continue IVF. (6) Acute hypokalemia: Status: Resolved Assessment and plan: Recheck in am (7) Hypomagnesemia: Status: Resolved Assessment and plan: Continue magnesium supplements. (8) Myasthenia gravis: Status: Chronic Assessment and plan: Continue pyridostigmine (9) GERD (gastroesophageal reflux disease): Status: Chronic Assessment and plan: Continue protonix 40 mg daily. Speech therapy consulted. (10) COPD (chronic obstructive pulmonary disease): Status: Chronic Assessment and plan: this dx is listed in her chart; she is a former smoker who quit several years ago; however, she is not on oxygen at home and is not on routine bronchodilators. She should have updated PFT as OP. (11) Peripheral neuropathy: Assessment and plan: Continue current regimen. (12) DVT prophylaxis: Status: Acute Assessment and plan: SC heparin in anticipation of possible procedure. (13) Discharge planning issues: Status: Acute Assessment and plan: DNR/DNI Consult palliative care Subjective Subjective Interval history since last seen: Ms Kim states that she has been nauseated. She has not had a BM in 4 days. At home, she is not on a bowel regimen and has to disimpact herself regularly. We discussed how her nausea might be related. She does not have any abdominal pain unless she presses on her bladder. She endorses having difficulty swallowing since starting to take cipro. She stopped taking it because she got scared. Her suprapubic catheter was last changed in the beginning of the month. She feels like her bladder is not emptying and describes an sensation of constant urgency. Denies dizziness, chest pain, shortness of breath. She received IV contrast today. She states that she has tolerated IV contrast before without incident. We discussed whether she would want to have a procedure done should neurosurgery feel that the paraspinal fluid collection seen on CT require intervention - she stated that she might. (Previously, she had stated she did not want any more surgery). Exam Narrative Exam Narrative: General: Pleasant mildly anxious female who is A&Ox3, NAD HEENT: EOMI, MMM Heart: RRR, no m/r/g Lungs: Diminished breath sounds B Abdomen: soft, tender suprapubically, nondistended Extremities: +1 BLE edema, symmetric Objective Last Vital Signs Temp 36.5 C 04/03/22 15:21 Pulse 99 H 04/03/22 15:21 Resp 19 04/03/22 15:21 BP 165/81 H 04/03/22 15:21 Pulse Ox 91 L 04/03/22 15:21 Laboratory Results - last 24 hr 04/02/22 04/02/22 04/02/22 19:20 19:20 19:20 WBC 10.65 RBC 4.42 Hgb 12.9 Hct 38.9 MCV 88 MCH 29.2 MCHC 33.2 RDW 12.6 Plt Count 280 MPV 9.1 Immature Gran % 0.5 Neutrophils % 81.6 Lymphocytes % 7.3 Monocytes % 9.6 Eosinophils % 0.6 Basophils % 0.4 Nucleated RBC % 0.0 Absolute Neutrophils 8.70 H Absolute Lymphocytes 0.78 L Absolute Monocytes 1.02 H Absolute Eosinophils 0.06 Absolute Basophils 0.04 D-Dimer 3165 H Sodium 128 L Potassium 3.4 L Chloride 88 L Carbon Dioxide 32.4 H Anion Gap 7.6 BUN 31 H Creatinine 1.7 H Estimated GFR/1.73 m2 30.07 Glucose 116 H Calcium 9.1 Magnesium 1.7 L Total Bilirubin 0.4 AST 23 ALT 25 Alkaline Phosphatase 108 Troponin I Total Protein 8.3 H Albumin 3.4 Urine Color Urine Clarity Urine pH Ur Specific Frostproof Urine Protein Urine Ketones Urine Blood Urine Nitrite Urine Bilirubin Urine Urobilinogen Ur Leukocyte Esterase Urine RBC Urine WBC Ur Epithelial Cells Urine Crystals Urine Bacteria Urine Casts Urine Mucus Ur Culture Indicated? Urine Glucose COVID-19 Source SARS-CoV-2 (PCR) Influenza Type A (PCR) Influenza Type B (PCR) RSV (PCR) 0804/02/22 04/02/22 19:30 19:30 21:17 WBC RBC Hgb Hct MCV MCH MCHC RDW Plt Count MPV Immature Gran % Neutrophils % Lymphocytes % Monocytes % Eosinophils % Basophils % Nucleated RBC % Absolute Neutrophils Absolute Lymphocytes Absolute Monocytes Absolute Eosinophils Absolute Basophils D-Dimer Sodium Potassium Chloride Carbon Dioxide Anion Gap BUN Creatinine Estimated GFR/1.73 m2 Glucose Calcium Magnesium Total Bilirubin AST ALT Alkaline Phosphatase Troponin I 94 H* Total Protein Albumin Urine Color Yellow Urine Clarity Clear Urine pH 6.5 Ur Specific Frostproof 1.010 Urine Protein Negative Urine Ketones Negative Urine Blood Small H Urine Nitrite Negative Urine Bilirubin Negative Urine Urobilinogen 0.2 Ur Leukocyte Esterase Negative Urine RBC 3-5 H Urine WBC Negative Ur Epithelial Cells Negative Urine Crystals Negative Urine Bacteria Negative Urine Casts Negative Urine Mucus Negative Ur Culture Indicated? No Urine Glucose Negative COVID-19 Source Not Applicable SARS-CoV-2 (PCR) Negative Influenza Type A (PCR) Negative Influenza Type B (PCR) Negative RSV (PCR) Negative 04/03/22 04/03/22 04/03/22 00:23 06:22 06:22 WBC RBC Hgb Hct MCV MCH MCHC RDW Plt Count MPV Immature Gran % Neutrophils % Lymphocytes % Monocytes % Eosinophils % Basophils % Nucleated RBC % Absolute Neutrophils Absolute Lymphocytes Absolute Monocytes Absolute Eosinophils Absolute Basophils D-Dimer Sodium 137 D Potassium 4.3 Chloride 100 Carbon Dioxide 31.3 Anion Gap 5.7 BUN 25 H Creatinine 1.4 H Estimated GFR/1.73 m2 37.62 Glucose 119 H Calcium 8.4 L Magnesium 1.8 Total Bilirubin 0.2 AST 18 ALT 19 Alkaline Phosphatase 90 Troponin I 144 H* 89 H* Total Protein 6.7 Albumin 2.6 L Urine Color Urine Clarity Urine pH Ur Specific Frostproof Urine Protein Urine Ketones Urine Blood Urine Nitrite Urine Bilirubin Urine Urobilinogen Ur Leukocyte Esterase Urine RBC Urine WBC Ur Epithelial Cells Urine Crystals Urine Bacteria Urine Casts Urine Mucus Ur Culture Indicated? Urine Glucose COVID-19 Source SARS-CoV-2 (PCR) Influenza Type A (PCR) Influenza Type B (PCR) RSV (PCR) 04/03/22 06:22 WBC 7.91 RBC 3.90 L Hgb 11.3 Hct 34.9 L MCV 90 MCH 29.0 MCHC 32.4 RDW 12.9 Plt Count 272 MPV 9.1 Immature Gran % 0.4 Neutrophils % 76.1 Lymphocytes % 10.5 Monocytes % 11.3 Eosinophils % 1.3 Basophils % 0.4 Nucleated RBC % 0.0 Absolute Neutrophils 6.03 Absolute Lymphocytes 0.83 L Absolute Monocytes 0.89 H Absolute Eosinophils 0.10 Absolute Basophils 0.03 D-Dimer Sodium Potassium Chloride Carbon Dioxide Anion Gap BUN Creatinine Estimated GFR/1.73 m2 Glucose Calcium Magnesium Total Bilirubin AST ALT Alkaline Phosphatase Troponin I Total Protein Albumin Urine Color Urine Clarity Urine pH Ur Specific Frostproof Urine Protein Urine Ketones Urine Blood Urine Nitrite Urine Bilirubin Urine Urobilinogen Ur Leukocyte Esterase Urine RBC Urine WBC Ur Epithelial Cells Urine Crystals Urine Bacteria Urine Casts Urine Mucus Ur Culture Indicated? Urine Glucose COVID-19 Source SARS-CoV-2 (PCR) Influenza Type A (PCR) Influenza Type B (PCR) RSV (PCR) Objective Narrative Objective Narrative: CTA chest: Negative CT angiogram of the chest. No evidence of pulmonary embolic disease. Incidental posterior fluid collection with associated spinal deformity (Note is made of a posteriorly located fluid collection with somewhat thick rim in the upper thoracic region associated with posterior fusion defect of the thoracic spine, the fluid collection measures about 7.1 x 3.7 x 5.9 cm.? Differential diagnosis includes a meningiocele, pseudo meningocele, abscess or seroma, please correlate clinically.)
[2022-04-03] MEDS: Bisacodyl 10 MG SUPP PR (15:43)
[2022-04-03] MEDS: predniSONE 20 MG TAB 60 MG PO (15:44)
[2022-04-03] MEDS: Docusate Sodium 100 MG CAP PO (15:44)
--- NOTE | 2022-04-03 17:15 | RT.EKG_ITS ---
APPROVED REPORT Exam: Resting ECG Reason for Exam: elevated troponin Patient Location: I HR:109 bpm ECG Measurements Heart Rate 109 AXIS GA 141 P 58 QRSd 82 QRS 14 QT 353 T 30 QTc 476 Conclusion Sinus tachycardia...rate> 99 Otherwise normal
--- NOTE | 2022-04-03 19:26 | NUR.NOTE ---
Nursing Note: At the beginning of the shift, pt. was informed of the miscellaneous order to crush all medications and administer them in applesauce or pudding. Pt. stated, No. I should be fine swallowing them like normal. Pt. has declined to have medications crushed throughout this RN's shift. Pt. has been taking one to two medications at a time, whole, with thin liquids. Pt. hasn't displayed any significant difficulty swallowing.
[2022-04-03] MEDS: Melatonin 3 MG TAB 6 MG PO (20:38)
[2022-04-03] MEDS: Cyclobenzaprine 10 MG TAB 20 MG PO (20:38)
--- NOTE | 2022-04-03 23:17 | NUR.NOTE ---
Nursing Note: Blood pressure continuing to rise throughout the day. Charge nurse reaching out to MD for further advice. Patient does take Lisinopril daily, and is not ordered at this time. Awaiting response from MD.
[2022-04-03] MEDS: Lisinopril 10 MG TAB PO (23:52)
[2022-04-04] VITALS (11 sets, daily range): BP systolic 129–177; BP diastolic 87–119; PULSE 78–105; RESP 18–20; TEMP 36.7–37; O2SAT 91–96
--- NOTE | 2022-04-04 04:02 | NUR.NOTE ---
Nursing Note: Blood pressure remains elevated since 10mg PO Lisinipril given. CC aware, and is reaching out to MD to notify and get further advise.
--- NOTE | 2022-04-04 06:16 | NUR.NOTE ---
Nursing Note: Home dose 10mg Lisinipril ordered last night for elevated b/p's. Then starting this am with next dose. Patients blood pressure remains elevated, next dose at 08:30.
[2022-04-04] MEDS: Pantoprazole 40 MG TABCR PO (06:30)
[2022-04-04 06:53] LABS: Abs Immature Grans 0.04 10^3/uL (0.0-0.06); Absolute Basophil Count 0.01 10^3/uL (0.0-0.2); Absolute Lymphocyte Count 0.43 10^3/uL (1.2-3.4); Absolute Neutrophil Count 8.38 10^3/uL (1.2-6.7); Basophils % 0.1; HCT 39.2 % (36.0-46.0); Immature Grans % 0.4; Lymphocytes % 4.7; MCH 29.3 pg (27.0-33.0); MCHC 33.2 % (32.0-36.0); MCV 88 fL (80-95); MPV 9.1 fL (8.0-11.0); Monocytes % 3.3; Neutrophils % 91.5; Platelet Count 308 10^3/uL (130-400); RBC 4.44 10^6/uL (3.93-5.22); RDW 12.8 % (11.7-14.6); RDW-SD 41.4 fL; WBC 9.16 10^3/uL (4.4-10.8)
[2022-04-04 07:08] LABS: Anion Gap 6.3 mmol/L (3-11); BUN 21 mg/dL (7-18); CO2 30.7 mmol/L (21.0-32.0); CREATININE 1.2 mg/dL (0.55-1.02); Calcium 9.4 mg/dL (8.5-10.1); Chloride 96 mmol/L (98-107); Estimated GFR 44.95 (mL/min/1.73m2); Glucose 138 mg/dL (74-106); Potassium 3.9 mmol/L (3.5-5.1); Sodium 133 mmol/L (136-145)
[2022-04-04 07:12] LABS: Calculated LDL 90 mg/dL (<100); Cholesterol 175 mg/dL (<200); HDL Cholesterol 76 mg/dL (40-60); Magnesium 1.5 mg/dL (1.8-2.4); Triglyceride 47 mg/dL (<150)
[2022-04-04] MEDS: fentaNYL 75 MCG PATCH TD (08:04)
[2022-04-04] MEDS: Normal Saline Flush 10 ML SYR IVP (08:04)
[2022-04-04] MEDS: Polyethylene Glycol 3350 17 GM PACKET PO ×2 (08:04→20:48)
[2022-04-04] MEDS: Heparin 5,000 UNITS/ML VIAL 5000 UNITS SC (08:05)
[2022-04-04] MEDS: Folic Acid 1 MG TAB PO (08:06)
[2022-04-04] MEDS: Aspirin 81 MG CHEW PO (08:06)
[2022-04-04] MEDS: Potassium Chloride 20 MEQ TABCR PO (08:06)
[2022-04-04] MEDS: Gabapentin 300 MG CAP 600 MG PO ×2 (08:06→20:49)
[2022-04-04] MEDS: Docusate Sodium 100 MG CAP PO ×2 (08:06→20:50)
[2022-04-04] MEDS: Acetaminophen 325 MG TAB PO ×2 (08:24→13:48)
[2022-04-04] MEDS: Magnesium Chloride 64 MG TABCR PO ×2 (08:25→20:49)
[2022-04-04] MEDS: amLODIPine 5 MG TAB PO (08:25)
[2022-04-04] MEDS: MAGNESIUM SULFATE 4 GM/100 ML BAG IVPB (09:12)
[2022-04-04] MEDS: Normal Saline 500 ML 100 ML IV (09:12)
--- NOTE | 2022-04-04 10:54 | W.PM.PROGNOT ---
Date of Service Date of service: 04/04/22 Time of Service: 10:40 Assessment and Plan Assessment and plan (1) Fluid collection at surgical site: Status: Acute Assessment and plan: [facility] neurosurgery recommends obtaining an MRI. DDx: meningocele, seroma, or abscess, abscess being less likely. (2) Elevated troponin: Status: Acute Assessment and plan: Holding asa in setting of blood in stool. obtain echo tomorrow. Control HR and BP. Will add BB. PE ruled out. (3) Blood in stool: Status: Acute Assessment and plan: This has not been confirmed with a formal hemoccult. Will trend H/H. Noon H/H is actually better. Obtain hemoccult. Hold chemical DVT ppx and asa. Start IV protonix BID. The patient did have nausea on this admission which could be c/w upper GI bleeding. She also received full anticoagulation when she first presented. For now, continue a diet. May require a general surgical c/s. (4) Tachycardia: Status: Acute Assessment and plan: In setting of possible GI bleed, spinal cord pathology, possible other process. Procalcitonin 0.1 - possibility of infectious/bacterial process is low. As is also hypertensive, will trial a low dose beta watl. PE ruled out. Obtain an echo. Monitor on tele. (5) Hypertension: Assessment and plan: Starting beta walt. (6) Hypoxia: Status: Resolved Assessment and plan: I do not see evidence of COPD exacerbation on exam today. PE ruled out. Suspect atelectasis. Encourage IS. (7) Neurogenic bowel: Status: Acute Assessment and plan: Continued a scheduled bowel regimen. (8) Prerenal azotemia: Status: Resolved Assessment and plan: Much improved. Finished IVF. (9) Acute hyponatremia: Status: Acute Assessment and plan: Worse after just one dose of lisinopril. Will not resume lisinopril. Monitor off of IVF - recheck in am. (10) Acute hypokalemia: Status: Resolved Assessment and plan: Recheck in am (11) Hypomagnesemia: Status: Acute Assessment and plan: Replete; recheck in am. (12) Myasthenia gravis: Status: Chronic Assessment and plan: Continue pyridostigmine (13) GERD (gastroesophageal reflux disease): Status: Chronic Assessment and plan: IV PPI BID. Speech therapy consulted. (14) COPD (chronic obstructive pulmonary disease): Status: Chronic Assessment and plan: Not in acute exacerbation. not on oxygen at home Will need PFTs as outpatient. (15) Peripheral neuropathy: Assessment and plan: Continue current regimen. (16) DVT prophylaxis: Status: Acute Assessment and plan: Holding chemical DVT ppx due to suspected GI bleeding. Will obtain a venous doppler of BLEs to ensure to DVTs (positive D-dimer). (17) Discharge planning issues: Status: Acute Assessment and plan: DNR/DNI Consult palliative care, PT, OT. Subjective Subjective Interval history since last seen: Ms Kim states that she is feeling better today. She is no longer nauseated and has had a large BM. It is documented that the BM was large brown black and bloody. The patient did not report this. She does feel palpitations. She denies dizziness, chest pain, shortness of breath, abdominal pain. She agrees to the MRI of her back tomorrow. Exam Narrative Exam Narrative: General: Pleasant mildly anxious female who is A&Ox3, looks better than yesterday HEENT: EOMI, MMM Heart: RRR, no m/r/g Lungs: Diminished breath sounds B, rales at R base Abdomen: soft, nontender, nondistended Extremities: +1 BLE edema, symmetric Objective Last Vital Signs Temp 36.8 C 04/04/22 07:32 Pulse 98 H 04/04/22 07:32 Resp 20 04/04/22 07:32 BP 146/116 H 04/04/22 08:27 Pulse Ox 91 L 04/04/22 07:32 Laboratory Results - last 24 hr 04/04/22 04/04/22 04/04/22 06:23 06:23 06:23 WBC 9.16 RBC 4.44 Hgb 13.0 Hct 39.2 MCV 88 MCH 29.3 MCHC 33.2 RDW 12.8 Plt Count 308 MPV 9.1 Immature Gran % 0.4 Neutrophils % 91.5 Lymphocytes % 4.7 Monocytes % 3.3 Eosinophils % 0.0 Basophils % 0.1 Nucleated RBC % 0.0 Absolute Neutrophils 8.38 H Absolute Lymphocytes 0.43 L Absolute Monocytes 0.30 Absolute Eosinophils 0.00 Absolute Basophils 0.01 Sodium 133 L Potassium 3.9 Chloride 96 L Carbon Dioxide 30.7 Anion Gap 6.3 BUN 21 H Creatinine 1.2 H Estimated GFR/1.73 m2 44.95 Glucose 138 H Calcium 9.4 Magnesium 1.5 L Triglycerides 47 Total Cholesterol 175 LDL Cholesterol, Calc 90 HDL Cholesterol 76
[2022-04-04 10:56] LABS: Lab Add On Test DONE
[2022-04-04 11:10] LABS: C-Reactive Protein 4.61 mg/dL (0.0-0.3)
[2022-04-04] MEDS: Metoprolol 12.5 MG TAB PO ×2 (11:21→20:49)
[2022-04-04] MEDS: Cyclobenzaprine 10 MG TAB PO (11:26)
[2022-04-04 11:47] LABS: Procalcitonin 0.1 ng/mL
[2022-04-04 12:05] LABS: HCT 40.7 % (36.0-46.0); HGB 13.3 g/dL (11.2-15.7)
[2022-04-04] MEDS: Gabapentin 300 MG CAP PO (13:48)
[2022-04-04] MEDS: Lidocaine 5% Patch 1 PATCH TP (20:46)
[2022-04-04] MEDS: Pantoprazole 40 MG VIAL IVP (20:48)
[2022-04-04] MEDS: Cyclobenzaprine 10 MG TAB 20 MG PO (20:50)
[2022-04-04] MEDS: Melatonin 3 MG TAB 6 MG PO (20:50)
--- NOTE | 2022-04-04 23:02 | NUR.NOTE ---
Nursing Note: Lidoderm patch split and placed on each upper arm per patient request.
[2022-04-05] VITALS (10 sets, daily range): BP systolic 137–162; BP diastolic 86–114; PULSE 72–107; RESP 17–18; TEMP 36.5–36.9; O2SAT 93–97
[2022-04-05 07:40] LABS: Abs Immature Grans 0.05 10^3/uL (0.0-0.06); Absolute Basophil Count 0.04 10^3/uL (0.0-0.2); Absolute Eosinophil Count 0.04 10^3/uL (0.0-0.7); Absolute Lymphocyte Count 1.24 10^3/uL (1.2-3.4); Absolute Monocyte Count 0.88 10^3/uL (0.1-0.8); Absolute Neutrophil Count 7.54 10^3/uL (1.2-6.7); Basophils % 0.4; Eosinophils % 0.4; HCT 39.9 % (36.0-46.0); HGB 12.7 g/dL (11.2-15.7); Immature Grans % 0.5; Lymphocytes % 12.7; MCH 28.5 pg (27.0-33.0); MCHC 31.8 % (32.0-36.0); MCV 90 fL (80-95); MPV 9.2 fL (8.0-11.0); Platelet Count 311 10^3/uL (130-400); RBC 4.46 10^6/uL (3.93-5.22); RDW 13.2 % (11.7-14.6); WBC 9.79 10^3/uL (4.4-10.8)
[2022-04-05 07:49] LABS: Anion Gap 5.4 mmol/L (3-11); BUN 21 mg/dL (7-18); CO2 32.6 mmol/L (21.0-32.0); CREATININE 1.1 mg/dL (0.55-1.02); Calcium 9.1 mg/dL (8.5-10.1); Chloride 98 mmol/L (98-107); Estimated GFR 49.69 (mL/min/1.73m2); Glucose 84 mg/dL (74-106); Magnesium 2.5 mg/dL (1.8-2.4); Sodium 136 mmol/L (136-145)
--- NOTE | 2022-04-05 08:00 | DI.US_ITS ---
APPROVED REPORT EXAM: Comprehensive 2D, Doppler, and color-flow Echocardiogram Patient Location: In-Patient Room/Bed: 214 [employer] Activities Foul Judge: Herminia Vizcarra RDCS (AE) Indications: Elevated troponin,COPD Other Information Study Quality: Fair. Technically limited study due to body habitus, inability to position patient exa m done supine on stretcher. Conclusion Normal left ventricular wall thickness and chamber size. Estimated ejection fraction is 55%. No seg mental wall motion abnormalities are seen Right ventricle is not well visualized Normal left atrial size. Right atrium not well visualized There are no structural or hemodynamically significant valvular abnormalities Mildly dilated aortic root Mild pericardial effusion Wall motion Left Ventricle The left ventricle is normal size. The left ventricular systolic function is normal. The left ventric ular ejection fraction is within the normal range. There is normal left ventricular wall thickness. T here is normal LV segmental wall motion. There is no ventricular septal defect visualized. LVEF is 55 %. Right Ventricle Right ventricle is not well visualized. Right ventricular systolic function could not be assessed. Atria The left atrium size is normal. Right atrium is not well visualized. The interatrial septum is intact with no evidence for an atrial septal defect. Aortic Valve The aortic valve is normal in structure. Aortic valve is trileaflet. There is no aortic valvular sten osis. No aortic regurgitation is present. Mitral Valve The mitral valve is normal in structure. No evidence of mitral valve stenosis. Trace mitral regurgita tion. Tricuspid Valve The tricuspid valve is normal in structure. There is no tricuspid valve stenosis. Mild tricuspid regu rgitation. Pulmonic Valve The pulmonary valve is normal in structure. There is no pulmonic valvular stenosis. There is no pulmo tanya valvular regurgitation. Great Vessels Aortic root is mildly dilated. Ascending aorta is not well visualized. Aortic arch is normal in calib er. IVC is normal in size and collapses >50% with inspiration. Pericardium Mild circumferential pericardial effusion. 2D Dimensions IVSD d PLAX 0.95 cm F: 0.6-1.0 LV Vol A2C d MOD 89.7 mL LVPW d PLAX 0.90 cm F: 0.6 - 1.0 LV Vol A4C d MOD 86.2 mL LVID d PLAX 4.00 cm F: 3.8 - 5.2 LA vol/ BSA A2C s A-L 18.7 mL/m2 LVDs 2.85 cm F: 2.2 - 3.5 LA Area A2C s MOD 13.92 cm2 Ao Root d 3.45 cm F: 2.7 - 3.3 LV EF A4C MOD 55.3 % LV EF Teichholz 54.3 % LV EF A2C MOD 55.2 % LVEF (Wynn's) 53.35 % F: 54 - 74 LV EF Biplane MOD 53.4 % LV Volume 70.13 mL F: 46 - 106 SV 47.28 mL LV Volume Index 41.01 mL/m2 F: 29 - 61 SV Index 27.55 mL/m2 LV Vol Biplane MOD 88.6 mL FS 27.70 % M-Mode TAPSE 1.93 cm (M/F) >1.7 LV Diastology MV E' medial 0.042 (>0.07 m/s) E/A Ratio 0.6 LV E/e MED 11.15 (<14) MV E Vmax 0.47 (0.4-1.3 m/s) MV E' lateral 0.053 (>0.1 m/s) MV A Vmax 0.85 (0.4-1.3 m/s) LV E/e LAT 8.85 (<14) MV E/A Ratio 0.55 MV E/E' medial 11.16 MV E/E' lateral 8.89 Aortic Valve LVOT Area 3.75 cm2 AoV Area Vmax 3.81 cm2 LVOT Vmax 0.89 m/s AoV Area/ BSA (Vmax) 2.22 cm2/m2 LVOT Mean Yemi. 0.62 m/s ANT Mean Yemi. 3.85 cm2 LVOT Peak Grad 3.1 mmHg ANT Mean Yemi. Index 2.24 cm2/m2 LVOT Mean Grad 1.7 mmHg LVOT VTI 0.181 m LVOT Diam s 2.15 cm AoV Vmax 0.87 m/s Velocity Ratio 1.02 AoV Mean Yemi. 0.60 m/s AoV Peak Grad 3.1 mmHg LVOT SV 68.10 mL AoV Mean Grad 1.6 mmHg AoV VTI 0.181 m AoV Area VTI 3.76 cm2 AoV Area/ BSA (VTI) 2.19 cm/m2 Mitral Valve MV DT 273 (160-240 msec) MV PHT 79 msec MV Area PHT 2.77 cm2 MV VTI 0.236 m MV Area VTI 2.88 (4.0-6.0 cm2) Pulmonary Valve PV Vmax 0.70 (0.5-1.5 m/s) RVOT Peak Gr. 0.93 mmHg PV Peak Grad 2.0 mmHg RVOT Mean Gr. 0.45 mmHg PV Mean Grad 1.1 mmHg RVOT VTI 0.098 m PV VTI 0.147 m RVOT Vmax 0.48 m/s Tricuspid Valve TR Peak Grad 24.8 mmHg TR Vmax 2.49 m/s RA Pressure 3.00 mmHg RVSP (TR) 27.9 mmHg
--- NOTE | 2022-04-05 08:00 | DI.MRI_ITS ---
Exam(s) MR THORACIC SPINE WO/W EXAM: MR THORACIC SPINE WO/W CLINICAL HISTORY: concern for seroma vs meningocele vs abscess,post spinal fluid collection. TECHNIQUE: Multiplanar multisequence MRI of the Thoracic spine was performed. CONTRAST MATERIAL: IV Contrast: 13 mL of Dotarem contrast administered. COMPARISON: MR MRI CERVICAL THORACIC 20 from 02/10/[address] ABDOMEN PELVIS W from 03/24/[address] CHEST PE CTA from 04/03/2022 FINDINGS: Bones: The vertebral body heights are well maintained. There is again seen a reverse S-type thoracolu mbar scoliosis. There are laminectomy defects from T1 through T4. There is a 6.3 cc by 2.7 AP by 5. 4 transverse cm fluid collection in the soft tissues posterior to the laminectomy defects. It is pao ogeneously hyperintense on the T2 weighted images and hypointense on the T1 weighted images. Followi ng contrast administration there is a thin enhancing wall. No direct communication with the spinal c anal is identified on this examination. There is no enhancement in the surrounding soft tissues. No other fluid collections are appreciated. The signal characteristics are unremarkable. Cord: There has been no change in the large thoracic spine syrinx. Discs: There is no focal disc herniation in the thoracic spine. No significant central spinal canal or neural foraminal stenosis is seen. Soft tissues: Please see the above bone section. There is a stable right renal cyst and a left extr arenal pelvis. There is no evidence of suspicious enhancement. IMPRESSION: 1. Postsurgical changes of laminectomies from T1 through T4. 2. Stable large thoracic spine syrinx. 3. 6.3 x 2.7 x 5.4 cm fluid collection in the soft tissues posterior to the laminectomy defects. No definite communication with the spinal canal contents is identified on this examination. This may re present a seroma or possible abscess. DATA REPOSITORY:
--- NOTE | 2022-04-05 08:00 | DI.US_ITS ---
Exam(s) US EXTREMITY VENOUS BI EXAM: US EXTREMITY VENOUS BI CLINICAL HISTORY: elevated D-dimer, BLE edema. TECHNIQUE: Bilateral lower extremity venous ultrasound performed using grayscale, color-flow, and sp ectral Doppler analysis. COMPARISON: No exams were available for comparison FINDINGS: The bilateral common femoral, femoral and popliteal veins demonstrate normal compressibility, augment ation, and color Doppler. The posterior tibial veins are patent. The saphenofemoral junctions are unr emarkable. There is no evidence of a Keane's cyst. The soft tissues are unremarkable. IMPRESSION: Right: Negative for DVT Left: Negative for DVT DATA REPOSITORY:
--- NOTE | 2022-04-05 08:10 | PCNE_ITS ---
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 She presented w/ SPO2 of 91% on room air and tachycardic HR 100 but not hypotensive (acutally hypertensive at 171/11) and afebrile. Workup in the ER included CXR that was unremarkable for any acute cardiopulmonary changes (she is s/p CABG w/ arterioslcerotic aortic changes, chronic left hemidiaphragm eleva tion) but no effusions or infiltrates. EKG demonstrated sinus tachycardia @ [address]-T changes but possible LAE, early R wave transition at V2 (?pulmonary pattern). Labs were remarkable for elevated d-dimer of 3165, troponin 94,? hyponatremia (128), hypokalemia? (3.4), hypochloridema (88), and azotemia (BUN 31, creatinine 1.7; baseline is 12 and 1.0), and hypomagnesemia (1.7) but normal CBC. Patient was begun on NS @ 150 mL/hr and given lovenox 80 mg SC for empiric treatment for PE. CTA was not done d/t her azotemia. Hopefully will be able to get definitive CTA in the a.m. once renal function has improved. Patient gave me the additional information that she thought that she was having a reaction to the Cipro she was given for the UTI in that she was feeling confused, weak and dizzy. However she has had no rash, nausea or vomting and no swelling of her tongue or mouth although she does complain of some difficult w/ swallowing meds. Interim Hx: Missy is a 66-year-old woman who has a C3-T12 syringomyelia. She has worsened over the years and now is pretty much wheelchair-bound. She was admitted because of elevated blood pressure low sats and tachycardia she has a long cardiac history she was admitted for further observation and IV fluids. Over the last few days she has had an elevated troponin and will be having further imaging studies. She says that she is feeling much better. She is hoping to advance her diet. She feels like she is nearing her baseline Normally Missy sees. Jennifer Lugo, COMMODITIES TRADER for palliative care today is her day off. Jennifer will be seeing her later this week Assessment and Plan Assessment and plan (1) Tachycardia: Status: Acute (2) Neurogenic bowel: Status: Acute (3) Constipation, chronic: Status: Acute (4) Chronic renal insufficiency: Status: Acute (5) Myasthenia gravis: Status: Chronic (6) COPD (chronic obstructive pulmonary disease): Status: Chronic (7) Palliative care patient: Status: Acute Assessment and plan: Syringomelia?MRI is planned. Myasthenia gravis?medications given Urine?continue with the suprapubic catheter COPD receiving maintenance medications CAD and elevated troponin?investigation continues At this point she did not have any specific concerns for me to advocate for her. She knows that Jennifer Lugo will be in later this week. Review of Systems Narrative: Missy states that at this point she is feeling okay. She is ready to advance her diet.mukul states that she is feeling ok. She is not having any chest pain. Her breathing is at baseline. There was some concern about her bowels but things seem to be coming back to her normal. She does have hemorrhoids which are bothering her some. When feasible she would like to have the additional telemetry wires removed. She is very happy with the nursing care [facility] All Active Problems (Updated 04/07/22 @ 14:45 by Adela Baird MD, DC) Palliative care patient (Acute) Blood in stool (Acute) Elevated troponin (Acute) Tachycardia (Acute) Neurogenic bowel (Acute) Fluid collection at surgical site (Acute) Discharge planning issues (Acute) DVT prophylaxis (Acute) Bursitis of left shoulder (Acute) Rupture of left proximal biceps tendon (Acute) Ulnar neuropathy of left upper extremity (Acute) Carpal tunnel syndrome of left wrist (Acute) Left shoulder pain (Acute) Protein malnutrition (Acute) Generalized weakness (Acute) DNI (do not intubate) (Acute) DNR (do not resuscitate) (Acute) POLST (Physician Orders for Life-Sustaining Treatment) (Acute) COLST completed 10/30/2020 with Jennifer Lugo, MAUREEN, DNR/DNI Constipation, chronic (Acute) Ataxia (Acute) Left hand weakness (Acute) Chronic renal insufficiency (Acute) Chronic pain (Chronic) Asymptomatic microscopic hematuria (Acute) Myasthenia gravis (Chronic) GERD (gastroesophageal reflux disease) (Chronic) Intracranial arachnoid cyst (Chronic) COPD (chronic obstructive pulmonary disease) (Chronic) Medical History (Updated 04/07/22 @ 14:45 by Adela Baird MD, DC) Anxiety Arachnoid cyst Blood loss anemia Blurred vision Bunion of unspecified foot Dental caries Depression Former smoker Frequent falls Gastric ulcer History of gluten intolerance History of lacunar cerebrovascular accident Hyperlipidemia Hypertension Hypokalemia Insomnia previous misuse of Ambien Left arm weakness Migraine headache without aura Neurogenic bladder Neuropathic pain of both legs Pain Peripheral neuropathy Prediabetes Spasticity Spinal stenosis Syrinx of spinal cord Starting at C3 and extending to T11 Urinary frequency Urinary retention Weakness Surgical History H/O craniotomy ; L cerebellar arachnoid cyst drain with shunt placement H/O esophagogastroduodenoscopy (~07/2021) 09/2021 H/O thymectomy 1980s S/P appendectomy S/P cystourethroscopy with dilation of urethral stricture S/P tonsillectomy Family History Mother Diabetes Father Neuropathy Back problem Brother Myasthenia gravis Social History Smoking/Tobacco Use Status: Former Tobacco Use Quit Date: 08/15/16 Smoking risk assessment performed?: Yes Alcohol Intake: former Drug use: Never Substance use type: does not use Household members: other [facility] Number of Children: 0 Pets and animals: No Current gender identity: female What type of physical activity do you participate in: none Seatbelt use: always Do you feel safe at home: Yes (Pt lives alone) Do you feel safe in your relationship?: No Exam Narrative Exam Narrative: She is lying in bed. She answers my questions fully but is a little tired. She is alert and oriented. Her breathing is shallow but nonlabored. Her heart is regular. She is in the high normal range. She does have a suprapubic catheter in place. Nursing states that there has been a bowel movement Results Last Vital Signs Temp 97.7 F 04/05/22 07:43 Pulse 83 04/05/22 07:43 Resp 17 04/05/22 07:43 BP 143/86 H 04/05/22 07:43 Pulse Ox 97 04/05/22 07:43 Labs Result diagrams: 04/07/22 07:00 04/06/22 06:50 Labs: Laboratory Results - last 24 hr 04/04/22 04/04/22 04/04/22 06:23 06:23 06:23 WBC RBC Hgb Hct MCV MCH MCHC RDW Plt Count MPV Immature Gran % Neutrophils % Lymphocytes % Monocytes % Eosinophils % Basophils % Nucleated RBC % Absolute Neutrophils Absolute Lymphocytes Absolute Monocytes Absolute Eosinophils Absolute Basophils Sodium Potassium Chloride Carbon Dioxide Anion Gap BUN Creatinine Estimated GFR/1.73 m2 Glucose Calcium Magnesium C-Reactive Protein 4.61 H Procalcitonin 0.1 Add-On Test Request DONE 04/04/22 04/05/22 04/05/22 11:55 06:33 06:33 WBC 9.79 RBC 4.46 Hgb 13.3 12.7 Hct 40.7 39.9 MCV 90 MCH 28.5 MCHC 31.8 L RDW 13.2 Plt Count 311 MPV 9.2 Immature Gran % 0.5 Neutrophils % 77.0 Lymphocytes % 12.7 Monocytes % 9.0 Eosinophils % 0.4 Basophils % 0.4 Nucleated RBC % 0.0 Absolute Neutrophils 7.54 H Absolute Lymphocytes 1.24 Absolute Monocytes 0.88 H Absolute Eosinophils 0.04 Absolute Basophils 0.04 Sodium 136 Potassium 4.0 Chloride 98 Carbon Dioxide 32.6 H Anion Gap 5.4 BUN 21 H Creatinine 1.1 H Estimated GFR/1.73 m2 49.69 Glucose 84 Calcium 9.1 Magnesium 2.5 H C-Reactive Protein Procalcitonin Add-On Test Request
[2022-04-05] MEDS: Metoprolol 12.5 MG TAB PO ×2 (08:17→20:08)
[2022-04-05] MEDS: Folic Acid 1 MG TAB PO (08:17)
[2022-04-05] MEDS: Senna TAB 1 TAB PO (08:17)
[2022-04-05] MEDS: Gabapentin 300 MG CAP 600 MG PO ×2 (08:18→22:37)
[2022-04-05] MEDS: Polyethylene Glycol 3350 17 GM PACKET PO (08:19)
[2022-04-05] MEDS: Potassium Chloride 20 MEQ TABCR PO (08:19)
[2022-04-05] MEDS: Docusate Sodium 100 MG CAP PO ×2 (08:19→20:07)
[2022-04-05] MEDS: Normal Saline Flush 10 ML SYR IVP ×3 (08:28→20:10)
[2022-04-05] MEDS: Pantoprazole 40 MG VIAL IVP ×2 (08:28→20:09)
--- NOTE | 2022-04-05 08:37 | OT.INIE ---
Occupational Therapy Notes Inpatient Occupational Therapy Evaluation Date: 04/05/22 Referring Doctor:Kat Moran MD OT Orders: Non Urgent Precautions: Fall, Standard, DNR/DNI PATIENT PROFILE/ADMITTING DIAGNOSIS: Pt is a 66 year old female who was admitted to Med Surg for the following dx of elevated troponin, blood in stool, tachycardia, HTN, Hypoxia, neurogenic bowel, perenal azotemia, GERD, hypomagnesemia, Hypokalemia, COPD, peripheral neuropathy and myasthenia gravis. Past Medical History: All Active Problems?(Updated 04/03/22 @ 01:24 by Lucio Hsieh MD) Prerenal azotemia (Acute) DVT prophylaxis (Acute) Hypomagnesemia (Acute) Acute hypokalemia (Acute) Acute hyponatremia (Acute) Hypoxia (Acute) Bursitis of left shoulder (Acute) Rupture of left proximal biceps tendon (Acute) Ulnar neuropathy of left upper extremity (Acute) Carpal tunnel syndrome of left wrist (Acute) Left shoulder pain (Acute) Protein malnutrition (Acute) Generalized weakness (Acute) DNI (do not intubate) (Acute) DNR (do not resuscitate) (Acute) POLST (Physician Orders for Life-Sustaining Treatment) (Acute) COLST completed 10/30/2020 with Jennifer Lugo, MAUREEN, DNR/DNIConstipation, chronic (Acute) Ataxia (Acute) Left hand weakness (Acute) Chronic renal insufficiency (Acute) Chronic pain (Chronic) Asymptomatic microscopic hematuria (Acute) Myasthenia gravis (Chronic) GERD (gastroesophageal reflux disease) (Chronic) Intracranial arachnoid cyst (Chronic) COPD (chronic obstructive pulmonary disease) (Chronic) Medical History?(Updated 04/03/22 @ 01:24 by Lucio Hsieh MD) Anxiety Arachnoid cyst Blood loss anemia Blurred vision Bunion of unspecified foot Dental caries Depression Former smoker Frequent falls Gastric ulcer History of gluten intolerance History of lacunar cerebrovascular accident Hyperlipidemia Hypertension Hypokalemia Insomnia previous misuse of AmbienLeft arm weakness Migraine headache without aura Neurogenic bladder Neuropathic pain of both legs Pain Peripheral neuropathy Prediabetes Spasticity Spinal stenosis Syrinx of spinal cord Starting at C3 and extending to [id number] frequency Urinary retention Weakness Surgical History? H/O craniotomy 1980s; L cerebellar arachnoid cyst drain with shunt placementH/O esophagogastroduodenoscopy (~07/2021) 09/2021H/O thymectomy 1980sS/P appendectomy S/P cystourethroscopy with dilation of urethral stricture S/P tonsillectomy Social History/Home Situation: Pt lives alone in an apartment and has HH OT who comes in to (A) with her bathing routines. She states that she doesn't drive and doesn't like to walk around town. She has a friend who she is close with who helps with ADL/IADL tasks like laundry and home making tasks. She notes that she has a limited social support and doesn't tend to leave her apartment. She is reporting that she likes to be as (I) as possible but notes that sometimes she is fatigued. She has a tub shower and rpeorts that her (A) comes from needing help with the transfer in. She also states that she gets meals on wheels and that they provide her with 1 meal per day and she has snacks for the other times she is hungry. Equipment owned/DME: Wheelchair, Shower bench, grab bars SUBJECTIVE: Pt states that her (L) side of her body is weak and notes numbness throughout. She has been relatively (I) in her home setting up until her admission. She notes that her balance in poor in her core which affects her (I) as well. OBJECTIVE: General Observation: Telemetry, IV, zendejas in place Mental Status: A&Ox3 Pain: c/o pain in (B) LE and (L) UE ROM: RUE AROM WFL L UE AROM WFL STRENGTH: RUE 4/5 throughout LUE 2+/5 throughout FUNCTIONAL MOBILITY/ADLS: Transfers into wheelchair with STEADY- not assessed with OT BATHING sitting in bed, (I) face and max (A) hair which pt reports that she just wants her hair washed today. GROOMING (I) with (R) UE for brushing her hair TOILETING Zendejas in place EATING sitting in bed (I) with eating routine, hand to mouth and use of silverware without assistance needed. BALANCE: Static sitting Good Dynamic Sitting Good SPECIAL TESTS: Daily Activity Limitations Standardized Measure [facility] AM -PAC ?6 clicks? Daily Activity Inpatient Short Form: Raw score: 19 Standardized score: 40.22 CMS score: 42.80% INFORMED CONSENT/EDUCATION: Pt instructed in purpose of OT Consult and plan of care. ASSESSMENT: Patient is a 66-year-old female referred to occupational therapy services with diagnosis of elevated troponin, blood in stool, tachycardia, HTN, Hypoxia, neurogenic bowel, perenal azotemia, GERD, hypomagnesemia, Hypokalemia, COPD, peripheral neuropathy and myasthenia gravis. Patient presents with clinical signs and symptoms consistent with dx, as demonstrated by the following impairment level findings/ functional limitations: Impairments ADL/IADL and leisure impairments, pain in (L) arm and (B) LE, numbness in (B) LE and decreased functional activity tolerance, impairments in functional mobility required for ADL performance. AMPAC score 19 Patient is assessed as a Moderate 77422 complexity based on the following: History: see above Examination: see functional limitations as noted above Presentation: evolving Decision Making: AMPAC score GOALS Goals x1 week 1. Oral Hygiene pt will be (I) sitting at sink with ideal technique 2. Dressing sitting on side of the bed (I) 3. Bathing in shower (I) seated 4. Toileting on commode (I) PLAN OF CARE/TREATMENT PLAN: 1x/day, 5 days/ week x 1week Initiate Occupational Therapy Services for bathing, dressing, grooming, toileting, eating, transfer training. DISCHARGE RECOMMENDATIONS Due to pts decreased functional activity tolerance OT recommends that pt go SNF [place]. Home with continued HH services when medically cleared per MD. TREATMENT TIME/MINUTES/CODES 71266, 39497, 30 minutes [facility]
--- NOTE | 2022-04-05 08:50 | PDOC.CMPRO ---
- If Service Date Differs Date of service: 04/05/22 Time of Service: 08:50 Care Management Progress Note S/O: A: Missy is a 66 year old woman admitted on 04/02/22 with dehydration and dyspnea P:Missy will likely return home with a resumption of services which includes: RN and OT as well as provate caregivers. She will follow up with her PCP and plan of care and transport via private vehicle. CM will continue to support Missy and her discharge needs.
--- NOTE | 2022-04-05 09:46 | PT.INIE ---
Date of service: 04/05/22 Time of Service: 09:46 PT Notes Visit Reasons: Dehydraion,Azotemia,Dyspnea,Hypoxia Inpatient Physical Therapy Evaluation Date: 04/05/2022 Referring Doctor:Valerie Moran MD PT Orders: PT CONSULT: Limited ability Precautions: Standard. Paraparetic, wheelchair-bound. Stand-squat transfers only after set up of wheelchair, does better leading with R LE. Patient Profile/Admitting Diagnosis: Orders received for this 66-year-old female with a history of myasthenia gravis, spinal cord decompression, and a host of multiple other health ailments presented to the ED on 04/02/2022 due to increasing weakness and shortness of breath related to urinary tract infection. Diagnosed with prerenal acidemia, hypoxia, acute hyponatremia, acute hypokalemia, hypomagnesemia, GERD, COPD, and peripheral neuropathy. PMHX: All Active Problems?(Updated 04/03/22 @ 01:24 by Lucio Hsieh MD) Prerenal azotemia (Acute) DVT prophylaxis (Acute) Hypomagnesemia (Acute) Acute hypokalemia (Acute) Acute hyponatremia (Acute) Hypoxia (Acute) Bursitis of left shoulder (Acute) Rupture of left proximal biceps tendon (Acute) Ulnar neuropathy of left upper extremity (Acute) Carpal tunnel syndrome of left wrist (Acute) Left shoulder pain (Acute) Protein malnutrition (Acute) Generalized weakness (Acute) DNI (do not intubate) (Acute) DNR (do not resuscitate) (Acute) POLST (Physician Orders for Life-Sustaining Treatment) (Acute) COLST completed 10/30/2020 with MAUREEN Marley, DNR/DNI Constipation, chronic (Acute) Ataxia (Acute) Left hand weakness (Acute) Chronic renal insufficiency (Acute) Chronic pain (Chronic) Asymptomatic microscopic hematuria (Acute) Myasthenia gravis (Chronic) GERD (gastroesophageal reflux disease) (Chronic) Intracranial arachnoid cyst (Chronic) COPD (chronic obstructive pulmonary disease) (Chronic) Medical History?(Updated 04/03/22 @ 01:24 by Lucio Hsieh MD) Anxiety Arachnoid cyst Blood loss anemia Blurred vision Bunion of unspecified foot Dental caries Depression Former smoker Frequent falls Gastric ulcer History of gluten intolerance History of lacunar cerebrovascular accident Hyperlipidemia Hypertension Hypokalemia Insomnia previous misuse of Ambien Left arm weakness Migraine headache without aura Neurogenic bladder Neuropathic pain of both legs Pain Peripheral neuropathy Prediabetes Spasticity Spinal stenosis Syrinx of spinal cord Starting at C3 and extending to T11 Urinary frequency Urinary retention Weakness Surgical History? H/O craniotomy ; L cerebellar arachnoid cyst drain with shunt placement H/O esophagogastroduodenoscopy (~07/2021) 09/2021 H/O thymectomy S/P appendectomy S/P cystourethroscopy with dilation of urethral stricture S/P tonsillectomy Social History/Home Situation: Patient lives at home alone.? Main mode of mobility indoors and outdoors is wheelchair. Receives meals on wheels. HH aide comes in twice a week for an hour to help with bathing and some chores at home. Goes to MD appointments visa [facility]. Equipment Owned/DME: Wheelchair Subjective: Agreeable to PT consult. Reports pain in L UE with wheelchair propulsion at 5/10. States that she has been able to manage well at home transferring to and from wheelchair using stand-0squat transfers, emphasized that she transfers better leading with her strong R LE. Objective: General inspection: Supine in bed. Brar catheter in place. Telemetry monitoring in place. Arthritic deformity in L hand. Mental Status: Alert and oriented x 4 Pain: 5/10 in L UE with wheelchair propulsion ROM: Right Upper Extremity: Shoulder Flexion WFL. Shoulder abduction WFL. Elbow flexion WFL. Wrist flexion WFL. Functional opening and closing of hand limited Left Upper Extremity: Shoulder Flexion WFL. Shoulder abduction WFL. Elbow flexion WFL. Wrist flexion WFL. Functional opening and closing of hand WFL. Right Lower Extremity: Hip flexion allows up to 90 degrees. Hip abduction 10 degrees. Knee flexion up to 90 degrees passively. Ankle dorsiflexion 5 degrees. Ankle plantarflexion 5 degrees. Left Lower Extremity: Hip flexion allows up to 90 degrees. Hip abduction 0 degrees. Knee flexion up to 90 degrees passively. Ankle dorsiflexion 5 degrees. Ankle plantarflexion 5 degrees. Strength: Right Upper Extremity: Shoulder flexors 4-/5. Shoulder abductors 4-/5. Elbow flexors 4-/5. Elbow extensors 4-/5. Patent Prosecution Paralegal weak but functional Left Upper Extremity: Shoulder flexors 4-/5. Shoulder abductors 4-/5. Elbow flexors 4-/5. Elbow extensors 4-/5. Patent Prosecution Paralegal weak but functional Right Lower Extremity: Hip flexors 3-/5. Hip abductors 2-/5. Knee flexors 2-/5. Knee extensors 2-/5. Ankle dorsiflexors 2-/5. Ankle plantarflexors 3-/5. Left Lower Extremity: Hip flexors 3-/5. Hip abductors 2-/5. Knee flexors 2-/5. Knee extensors 2-/5. Ankle dorsiflexors 2-/5. Ankle plantarflexors 3-/5. Sensation: Impaired in B UE as to light touch and pain Bed Mobility/Transfers: Moderate assistance Supine-sit: stand by assist Sit-stand: Unable Stand-sit: Unable Sit to squat contact guard assist with using B hands for support Squat transfer from edge of bed to wheelchair after wheelchair set up contact guard assist using B hands for support Gait:? Unable Wheelchair propulsion: Forward occasional assistance to avoid obstacles, wheelchair a little too wide for patient Backward occasional assistance to avoid obstacles, wheelchair a little too wide for patient Turn to R occasional assistance to avoid obstacles, wheelchair a little too wide for patient Turn to L occasional assistance to avoid obstacles, wheelchair a little too wide for patient Balance: Static Sitting: Good Dynamic Sitting: Good Static Standing: Poor Dynamic Standing: Poor Special Tests: Mobility Limitations Standardized Measure [facility] 6 clicks Basic Mobility Inpatient Short Form: Raw Score:?18 ? CMS Score:?47% deficit Informed Consent/Education:? Patient instructed in purpose of PT consult and plan of care. ASSESSMENT: Requires assistnce of 1 for squat transfer from edge of bed to wheelchair leading with the L side. Paraparetic from myasthenia gravis of 30 years, spinal stenosis, and previous CVA. Wheelchair bound and receives needed assistance at home. May benefit from the use of hopsital bed to allow more independence with bed mobility and transfers. Patient presents with clinical signs and symptoms consistent with current/admitting diagnoses that have resulted to mobility limitations, gait instability, generalized weakness, and overall ADL decline as demonstrated by the following impairment level findings: 1. Decreased strength to B LE major muscle groups 2. Impaired sitting balance 3. Impaired activity tolerance 4. Limitation of joint range of motion in L hand, B UE joints 5. Wheelchair bound 6. Pain in L UE Impairments are contributing to the following functional limitations: 1. Decline in bed mobility skills 2. Decline in transfer skills 3. Difficulty with ambulation without assistive device and physical assistance 4. Increased completion time for mobility ADL performance 5. Increased risk for falls 6. Difficulty with managing steps alone safely Patient is assessed as a 54875 high complexity based on the following: History: 66-year-old female with past medical history as indicated above Examination: Demonstrable impairment in strength, balance, and mobility level with underlying impairments and functional limitations as exhibited above as well as deficit score of 47% utilizing the [facility] Mobility Inpatient Short Form Presentation: Evolving Decision Makin high complexity Goals: Goals X1 week 1. Supine-Sit? independent 2. Sit-Supine? independent 3. Sit-squat independent after set up of wheelchair 4. Squat to sit ? independent after set up of wheelchair 5. Wheelchair propulsion independent Plan of Care/Treatment Plan: 1-2x/day, 7 days/week x 1 week. Plan of care has been reviewed with the PERFORMANCE IMPROVEMENT CONSULTANT providing the service under Physical Therapy direction. Initiate Physical Therapy intervention for strengthening, bed mobility, transfers, gait, stairs, balance training, use of assistive device. DISCHARGE RECOMMENDATIONS: [] Home with no services [] [X] Home with services. Home when medically cleared by hospitalist. Patient will benefit from home health PT services in order to progress mobility level using least restrictive assistive ambulatory device, assess home safety, identify additional equipment needs, and establish a functional maintenance program that will increase ability of patient to remain at home. [] Home with outpatient PT [] [] SNF for continued rehabilitation [] [] [facility] Care [] [] SNF versus LTC based on ability to participate and progress [] TREATMENT CODE/TIME: 85843 x 25 minutes, 26120 x 10 minutes beginning at 9:46 AM. Thank you for the opportunity to participate in the care of this patient. Ching Viveros PT, DPT, CLT [facility] [place], [place]
[2022-04-05] MEDS: Lidocaine Patch Removal 1 EACH TP (11:23)
[2022-04-05] MEDS: Gabapentin 300 MG CAP PO (13:39)
[2022-04-05] MEDS: Milk of Magnesia 30 ML CUP PO (13:40)
[2022-04-05] MEDS: fentaNYL 75 MCG PATCH TD (14:59)
--- NOTE | 2022-04-05 15:10 | PT.INTREAT ---
PT Notes Visit Reasons: Dehydraion,Azotemia,Dyspnea,Hypoxia SUBJECTIVE: Pt just got back from MRI downstairs and reports feeling tired from the transport. Pt agreeable to participating with therapy. OBJECTIVE: ? PAIN: No c/o pain ? BED MOBILITY/TRANSFERS? Supine-sit: SBA Sit-stand: mod A? Stand-sit: min A Stand pivot transfer EOB?WC and WC?EOB x2 min A initially, mod A 2nd transfer. EOB to supine min A for BLE elevation to get centered in bed Bed repositioning SBA for side to side movement, max A+2 for upward movement in bed. ? ASSESSMENT: Pt initially refusing instructions for proper hand placement during transfers reporting she has her own way of transferring which was unsuccessful, pt eventually tried to follow instructions resulting in easier transition. pt required rest period in between transfers with pt reporting feeling exhausted after the second transfer preventing further pt engagement per pt request. PLAN: Continue with global strengthening and transfer training for continued progression toward baseline level of function. TREATMENT CODE/TIME: 31 minutes; 03843 (02:44)
--- NOTE | 2022-04-05 16:47 | STREC_ITS ---
Date of service: 04/05/22 Time of Service: 15:00 Speech Therapy Recommendations Report ST Recommendations: SUPERINTENDENT [employer] GENERATION Communication / Non-Treatment Note Patient Profile/Admitting Diagnosis: Consult order received 04/05/[address] Hsieh (non-urgent consult given report of dysphagia; hx Myasthenia Gravis, GERD); patient is a 66-year-old female with a history of myasthenia gravis, spinal cord decompression, and a host of multiple other health ailments presented to the ED on 04/02/2022 due to increasing weakness and shortness of breath related to urinary tract infection.? Diagnosed with prerenal acidemia, hypoxia, acute hyponatremia, acute hypokalemia, hypomagnesemia, GERD, COPD, and peripheral neuropathy. Patient reported difficulties with swallowing upon admission. Interval History: Patient currently on minced/moist solids and thin liquids per chart review. SUPERINTENDENT [employer] GENERATION spoke w RN and [employer]ECTIVE [employer]ARC[employer]ICE (Denice Dumont) regarding patient status/observed difficulties w swallowing and/or patient reports: RN reports patient did well w AM meds whole in thin liquids, does not endorse any difficulties on current diet of minced/moist solids and thin liquids, 100% intake at all meals. Patient in DI at time of visit this date, will re-assess following date. Plan: SUPERINTENDENT [employer] GENERATION to return 04/06 for full assessment/screening as appropriate, provide updated recommendations. Current Recommendations: Continue current diet recommendations until SUPERINTENDENT OF GENERATION assessment. Oral hygiene BID/2x per day and before/after PO intake using friction with toothbrush on all oral structures as tolerated HOB upright as tolerated; upright for all PO intake. Encourage physical mobility as tolerated. Level of Assistance/Supervision: Independent Strategies/Adaptations/Assistive Equipment: Reduce auditory and/or visual distractions when eating, Slow rate of intake, Alternate intake of liquids and solids, Small+frequent meals throughout day Posture/Positioning Needs: Maintain upright position at least 30 minutes after meals, Avoid meals/snacks 2-3 hours prior to reclining/sleeping, Sleep with head of bed elevated to reduce likelihood of nocturnal reflux Kristin Wilburn MA [facility]-SUPER[employer]END[employer] GENER[employer] Speech-Language Pathologist [place]#[phone] PMHX: All Active Problems?(Updated 04/03/22 @ 01:24 by Lucio Hsieh MD) Prerenal azotemia (Acute) DVT prophylaxis (Acute) Hypomagnesemia (Acute) Acute hypokalemia (Acute) Acute hyponatremia (Acute) Hypoxia (Acute) Bursitis of left shoulder (Acute) Rupture of left proximal biceps tendon (Acute) Ulnar neuropathy of left upper extremity (Acute) Carpal tunnel syndrome of left wrist (Acute) Left shoulder pain (Acute) Protein malnutrition (Acute) Generalized weakness (Acute) DNI (do not intubate) (Acute) DNR (do not resuscitate) (Acute) POLST (Physician Orders for Life-Sustaining Treatment) (Acute) COLST completed 10/30/2020 with Jennifer Lugo, RESIDENTIAL CARE OFFICER, DNR/DNI Constipation, chronic (Acute) Ataxia (Acute) Left hand weakness (Acute) Chronic renal insufficiency (Acute) Chronic pain (Chronic) Asymptomatic microscopic hematuria (Acute) Myasthenia gravis (Chronic) GERD (gastroesophageal reflux disease) (Chronic) Intracranial arachnoid cyst (Chronic) COPD (chronic obstructive pulmonary disease) (Chronic) Medical History?(Updated 04/03/22 @ 01:24 by Lucio Hsieh MD) Anxiety Arachnoid cyst Blood loss anemia Blurred vision Bunion of unspecified foot Dental caries Depression Former smoker Frequent falls Gastric ulcer History of gluten intolerance History of lacunar cerebrovascular accident Hyperlipidemia Hypertension Hypokalemia Insomnia - previous misuse of Ambien Left arm weakness Migraine headache without aura Neurogenic bladder Neuropathic pain of both legs Pain Peripheral neuropathy Prediabetes Spasticity Spinal stenosis Syrinx of spinal cord Starting at C3 and extending to T11 Urinary frequency Urinary retention Weakness Surgical History? H/O craniotomy ; L cerebellar arachnoid cyst drain with shunt placement H/O esophagogastroduodenoscopy (~07/2021) 09/2021 Findings: scarring at the junction of the esophagus and stomach. Mild inflammation H/O thymectomy S/P appendectomy S/P cystourethroscopy with dilation of urethral stricture S/P tonsillectomy Social History/Home Situation: Patient lives at home alone.? Main mode of mobility indoors and outdoors is wheelchair.? Receives meals on wheels.? HH aide comes in twice a week for an hour to help with bathing and some chores at home.? Goes to MD appointments visa [facility].? Coding
--- NOTE | 2022-04-05 17:18 | W.PM.PROGNOT ---
Date of Service Date of service: 04/05/22 Time of Service: 17:18 Assessment and Plan Assessment and plan (1) Fluid collection at surgical site: Status: Acute Assessment and plan: MRI does not show definitive communication between the collection and the spinal canal. DDx: seroma, or abscess. Will discuss with [facility] neurosurgery (also considering IR consult if neurosurgery does not feel this is related to the spine surgery). (2) Elevated troponin: Status: Acute Assessment and plan: Holding asa in setting of blood in stool (this has not recurred, so we will likely resume asa tomorrow). Echo with preserved EF and w/o evidence of wall motion abnormalities. Control HR and BP with BB, as we are. PE ruled out. (3) Blood in stool: Status: Acute Assessment and plan: This has not been confirmed with a formal hemoccult. No BM in 24 hrs. Intensify bowel regimen and obtain a formal hemoccult. Continue IV protonix BID. The patient did have nausea on this admission which could be c/w upper GI bleeding. She also received full anticoagulation when she first presented. Continue a diet. May require a general surgical c/s. (4) Tachycardia: Status: Acute Assessment and plan: Improved with initiation of BB. As seen in setting of possible GI bleed, spinal cord pathology, possible other process. Procalcitonin 0.1 - possibility of infectious/bacterial process is low. PE ruled out. No findings on echo to explain tachycardia. (5) Hypertension: Assessment and plan: Continue beta walt. (6) Hypoxia: Status: Resolved Assessment and plan: I do not see evidence of COPD exacerbation on exam today. PE ruled out. Suspect atelectasis. Encourage IS. (7) Neurogenic bowel: Status: Acute Assessment and plan: Intensify scheduled bowel regimen. (8) Prerenal azotemia: Status: Resolved Assessment and plan: Much improved. Finished IVF. (9) Acute hyponatremia: Status: Resolved Assessment and plan: Seems to be better since lisinopril was d/c'ed. Continue to monitor. (10) Acute hypokalemia: Status: Resolved Assessment and plan: Recheck in am (11) Hypomagnesemia: Status: Resolved Assessment and plan: Recheck in am. (12) Myasthenia gravis: Status: Chronic Assessment and plan: Continue pyridostigmine (13) GERD (gastroesophageal reflux disease): Status: Chronic Assessment and plan: IV PPI BID. Speech therapy consulted. (14) COPD (chronic obstructive pulmonary disease): Status: Chronic Assessment and plan: Not in acute exacerbation. not on oxygen at home Will need PFTs as outpatient. (15) Peripheral neuropathy: Assessment and plan: Continue current regimen. (16) DVT prophylaxis: Status: Acute Assessment and plan: Holding chemical DVT ppx due to suspected GI bleeding. DVT study of LEs negative - start SCDs. (17) Discharge planning issues: Status: Acute Assessment and plan: DNR/DNI Consult palliative care, PT, OT. Subjective Subjective Interval history since last seen: Ms Kim states that she is feeling well. She denies dizziness, chest pain, shortness of breath, nausea. MRI results were not yet available at the time of my visit with the patient. Exam Narrative Exam Narrative: General: Pleasant mildly anxious female who is A&Ox3, NAD, looks to be in good spirits with her friend visiting. HEENT: EOMI, MMM Heart: RRR, no m/r/g Lungs: Diminished breath sounds B, Abdomen: soft, nontender, nondistended Extremities: trace BLE edema, symmetric Objective Last Vital Signs Temp 36.8 C 04/05/22 15:28 Pulse 107 H 04/05/22 15:41 Resp 18 04/05/22 15:28 BP 154/96 H 04/05/22 15:28 Pulse Ox 94 04/05/22 15:28 Laboratory Results - last 24 hr 04/05/22 04/05/22 06:33 06:33 WBC 9.79 RBC 4.46 Hgb 12.7 Hct 39.9 MCV 90 MCH 28.5 MCHC 31.8 L RDW 13.2 Plt Count 311 MPV 9.2 Immature Gran % 0.5 Neutrophils % 77.0 Lymphocytes % 12.7 Monocytes % 9.0 Eosinophils % 0.4 Basophils % 0.4 Nucleated RBC % 0.0 Absolute Neutrophils 7.54 H Absolute Lymphocytes 1.24 Absolute Monocytes 0.88 H Absolute Eosinophils 0.04 Absolute Basophils 0.04 Sodium 136 Potassium 4.0 Chloride 98 Carbon Dioxide 32.6 H Anion Gap 5.4 BUN 21 H Creatinine 1.1 H Estimated GFR/1.73 m2 49.69 Glucose 84 Calcium 9.1 Magnesium 2.5 H Objective Narrative Objective Narrative: MRI Thoracic spine: 1. Postsurgical changes of laminectomies from T1 through T4. 2. Stable large thoracic spine syrinx. 3. 6.3 x 2.7 x 5.4 cm fluid collection in the soft tissues posterior to the laminectomy defects.? No definite communication with the spinal canal contents is identified on this examination.? This may represent a seroma or possible abscess.? Venous doppler BLEs: Right: Negative for DVT Left: Negative for DVT Echo; Normal left ventricular wall thickness and chamber size.? Estimated ejection fraction is 55%.? No segmental wall motion abnormalities are seen Right ventricle is not well visualized Normal left atrial size.? Right atrium not well visualized There are no structural or hemodynamically significant valvular abnormalities Mildly dilated aortic root Mild pericardial effusion
[2022-04-05] MEDS: Bisacodyl 5 MG TABEC PO (17:40)
[2022-04-05] MEDS: Magnesium Chloride 64 MG TABCR PO (20:08)
[2022-04-05] MEDS: Cyclobenzaprine 10 MG TAB 20 MG PO (22:37)
[2022-04-05] MEDS: Melatonin 3 MG TAB 6 MG PO (22:37)
[2022-04-06] VITALS (10 sets, daily range): BP systolic 110–175; BP diastolic 63–110; PULSE 73–96; RESP 16–20; TEMP 36–36.8; O2SAT 93–96
[2022-04-06] MEDS: Metoprolol 12.5 MG TAB PO ×2 (03:21→11:33)
[2022-04-06 03:25] LABS: Source Nasal/Nares
[2022-04-06 04:05] LABS: COVID-19 PCR Negative (Negative)
[2022-04-06 08:08] LABS: Abs Immature Grans 0.08 10^3/uL (0.0-0.06); Absolute Basophil Count 0.05 10^3/uL (0.0-0.2); Absolute Eosinophil Count 0.22 10^3/uL (0.0-0.7); Absolute Lymphocyte Count 1.62 10^3/uL (1.2-3.4); Absolute Monocyte Count 0.99 10^3/uL (0.1-0.8); Absolute Neutrophil Count 5.68 10^3/uL (1.2-6.7); Basophils % 0.6; Eosinophils % 2.5; HCT 40.8 % (36.0-46.0); HGB 13.4 g/dL (11.2-15.7); Immature Grans % 0.9; Lymphocytes % 18.8; MCH 28.9 pg (27.0-33.0); MCHC 32.8 % (32.0-36.0); MCV 88 fL (80-95); MPV 9.2 fL (8.0-11.0); Monocytes % 11.5; Neutrophils % 65.7; Platelet Count 363 10^3/uL (130-400); RBC 4.63 10^6/uL (3.93-5.22); RDW 13.2 % (11.7-14.6); RDW-SD 42.8 fL; WBC 8.64 10^3/uL (4.4-10.8)
[2022-04-06] MEDS: Normal Saline Flush 10 ML SYR IVP ×2 (08:16→20:32)
[2022-04-06] MEDS: Pantoprazole 40 MG VIAL IVP (08:17)
[2022-04-06 08:19] LABS: Anion Gap 5.8 mmol/L (3-11); BUN 20 mg/dL (7-18); C-Reactive Protein 0.98 mg/dL (0.0-0.3); CO2 30.2 mmol/L (21.0-32.0); Calcium 8.9 mg/dL (8.5-10.1); Chloride 99 mmol/L (98-107); Estimated GFR 55.47 (mL/min/1.73m2); Glucose 94 mg/dL (74-106); Magnesium 2.2 mg/dL (1.8-2.4); Sodium 135 mmol/L (136-145)
[2022-04-06] MEDS: Polyethylene Glycol 3350 17 GM PACKET PO ×2 (08:21→20:32)
[2022-04-06] MEDS: Gabapentin 300 MG CAP 600 MG PO ×2 (08:22→22:32)
[2022-04-06] MEDS: Docusate Sodium 100 MG CAP PO ×3 (08:23→20:31)
[2022-04-06] MEDS: Magnesium Chloride 64 MG TABCR PO ×2 (08:23→20:31)
[2022-04-06] MEDS: Folic Acid 1 MG TAB PO (08:23)
[2022-04-06] MEDS: Senna TAB 1 TAB PO ×2 (08:23→20:31)
--- NOTE | 2022-04-06 10:10 | PT.INTREAT ---
Date of service: 04/06/22 Time of Service: 10:10 PT Notes Visit Reasons: Dehydraion,Azotemia,Dyspnea,Hypoxia Physical Therapy Inpatient Treatment Note SUBJECTIVE: Reports that her left hand feels better this morning. Happy that BENJI Ross has found a narrower wheelchair for her this morning, excited to practice transfers with PT this morning. States that she is waiting to know from MD and MD at [facility] what is next with the result of the MRI on her spine, whether she will have surgery or not. She appears perkier today. OBJECTIVE: ? PAIN: Denies pain in L hand ? BED MOBILITY/TRANSFERS? Supine-sit: stand by assist Sit-squat: minimal assist ? Squat-sit: minimal assist Squat-pivot transfer: minimal assist using B hands for support THERA EX: Able to perform chair push ups x 5 for 2 sets while on wheelchair with no report of increased pain. Partial LAQs x 10. ?Partial DF x 10. ? ROOM EXERCISES: Patient was instructed to perform 5 chair push ups every hour to relieve ischial and gluteal areas to maintain skin integrity. ? ASSESSMENT: Patient more able to bring self up from sitting using B UE for support. More work up needed for new possible abscess in back. Impression seen on thoracic MRI: 1. Postsurgical changes of laminectomies from T1 through T4. 2. Stable large thoracic spine syrinx. 3. 6.3 x 2.7 x 5.4 cm fluid collection in the soft tissues posterior to the laminectomy defects.? No definite communication with the spinal canal contents is identified on this examination.? This may represent a seroma or possible abscess.? PLAN: Progress transfer status to independent and increase exercise intensity as tolerated. TREATMENT CODE/TIME: 02404 x 16 minutes, 40620 x 15 minutes beginning at 10:10 AM.
[2022-04-06] MEDS: Acetaminophen 325 MG TAB PO (10:13)
--- NOTE | 2022-04-06 11:30 | W.SPSTE ---
Date of service: 04/06/22 Time of Service: 11:30 Subjective Clinical (Bedside) Swallow Evaluation - Initial Speech Language Pathology SUBJECTIVE: Patient received alert/awake, agreeable to evaluation, able to communicate wants/needs effectively; able to demonstrate comprehension of recommendations for safe p.o. intake upon discharge once deemed medically stable.? Patient reports that she experiences occasional (1x/weekly) difficulty with coughing while eating/drinking (either) ; sometimes my breathing goes wrong and things get a little choked up. She is unsure if this occurs in relation to MG fatigue. She denies reflux symptoms, but has documented hx GERD. She initially denies shortness of breath or COPD symptoms, but later states that these issues occasionally cause her to cough during meals as previously described. Denies odynophagia, xerostomia, voice changes, or other related factors. Does not feel there is a particular pattern related to coughing incidents but states she feels it is related to breathing coordination. HPI: Consult order received 04/05/[address] Hsieh (non-urgent consult given report of dysphagia; hx Myasthenia Gravis, GERD); patient is a 66-year-old female with a history of myasthenia gravis, spinal cord decompression, and a host of multiple other health ailments presented to the ED on 04/02/2022 due to increasing weakness and shortness of breath related to urinary tract infection.? Diagnosed with prerenal acidemia, hypoxia, acute hyponatremia, acute hypokalemia, hypomagnesemia, GERD, COPD, and peripheral neuropathy. Patient reported difficulties with swallowing upon admission.?Since admission, patient on minced/moist solids and thin liquids. Nursing reports she has not demonstrated s/sx aspiration and has had good intake on this diet consistency. Currently taking medications whole with thin liquids. Predisposing dysphagia risk factors: Myesthenia gravis, GERD, COPD, remote hx basal ganglia lacunar infarct. Clinical signs of possible chronic dysphagia:? Patient reports some baseline difficulty with swallowing. Precipitating dysphagia risk factors / triggering event: respiratory changes ISO UTI . ? IMPRESSIONS & PLAN: Patient without s/sx aspiration on examination this date, but given subjective report of occasional difficulty coordinating breathing & swallowing during meals, mastication and speech fatigue, likely with possible mild oral-pharyngeal dysphagia, likely baseline/chronic, in setting of periodic fatigue 2/2 myesthenia gravis, and complicated by partial edentulousness, COPD and GERD. Suspect she is at mild increased risk of pulmonary complication r/t swallow function. Reported hx GERD though patient denies symptoms of reflux. Given infrequency of symptoms, patient preference, and performance on clinical swallow evaluation this date, patient is appropriate for upgrade diet to soft/bite size. SMALL PACKAGE AND BUNDLE SORTER CLERK to follow-up with RN to ensure diet tolerance. Additional educatoin/recommendations given to patient as described below in objective section. Patient also with likely mild/fluctuating dysarthria secondary to Myasthenia Gravis (and complicated by partial edentulous status) based on subjective report, though 100% intelligible this date. Provided education r/t intelligibility and energy conservation strategies. Further SMALL PACKAGE AND BUNDLE SORTER CLERK services: Patient to be followed while on unit, directly or indirectly via RN report to ensure tolerance of upgraded diet ? Instrumentation: N/A ? RECOMMENDATIONS: Diet Texture Modification(s): IDDSI Level(s) SOLIDS 6-Soft & Bite-Sized Solids LIQUIDS 0-Thin Liquids Medication Intake: Whole with 0-Thin Liquids Alter medications only as advised by MD or Pharmacist RISK MANAGEMENT: HOB upright as tolerated; upright for all PO intake. Encourage physical mobility as tolerated. Oral hygiene BID/2x per day, before/after PO intake, using friction with toothbrush on all oral structures as tolerated ? Level of Assistance/Supervision: Independent with setup assist as needed Strategies/Adaptations/Assistive Equipment: Reduce auditory and/or visual distractions when eating Small sips and bites when eating Slow rate of intake Small+frequent meals throughout day Posture/Positioning Needs: Maintain fullyupright position at least 30 minutes after meals Avoid meals/snacks 2-3 hours prior to bed Sleep with head of bed elevated to reduce likelihood of nocturnal reflux HISTORY PMHX: All Active Problems?(Updated 04/03/22 @ 01:24 by Lucio Hsieh MD) Prerenal azotemia (Acute) DVT prophylaxis (Acute) Hypomagnesemia (Acute) Acute hypokalemia (Acute) Acute hyponatremia (Acute) Hypoxia (Acute) Bursitis of left shoulder (Acute) Rupture of left proximal biceps tendon (Acute) Ulnar neuropathy of left upper extremity (Acute) Carpal tunnel syndrome of left wrist (Acute) Left shoulder pain (Acute) Protein malnutrition (Acute) Generalized weakness (Acute) DNI (do not intubate) (Acute) DNR (do not resuscitate) (Acute) POLST (Physician Orders for Life-Sustaining Treatment) (Acute) COLST completed 10/30/2020 with Jennifer Lugo, MAUREEN, DNR/DNI Constipation, chronic (Acute) Ataxia (Acute) Left hand weakness (Acute) Chronic renal insufficiency (Acute) Chronic pain (Chronic) Asymptomatic microscopic hematuria (Acute) Myasthenia gravis (Chronic) GERD (gastroesophageal reflux disease) (Chronic) Intracranial arachnoid cyst (Chronic) COPD (chronic obstructive pulmonary disease) (Chronic) Medical History?(Updated 04/03/22 @ 01:24 by Lucio Hsieh MD) Anxiety Arachnoid cyst Blood loss anemia Blurred vision Bunion of unspecified foot Dental caries Depression Former smoker Frequent falls Gastric ulcer History of gluten intolerance History of lacunar cerebrovascular accident Hyperlipidemia Hypertension Hypokalemia Insomnia - previous misuse of Ambien Left arm weakness Migraine headache without aura Neurogenic bladder Neuropathic pain of both legs Pain Peripheral neuropathy Prediabetes Spasticity Spinal stenosis Syrinx of spinal cord Starting at C3 and extending to T11 Urinary frequency Urinary retention Weakness Surgical History? H/O craniotomy ; L cerebellar arachnoid cyst drain with shunt placement H/O esophagogastroduodenoscopy (~07/2021) 09/2021 Findings: scarring at the junction of the esophagus and stomach. Mild inflammation H/O thymectomy S/P appendectomy S/P cystourethroscopy with dilation of urethral stricture S/P tonsillectomy Social History/Home Situation: Patient lives at home alone.? Main mode of mobility indoors and outdoors is wheelchair.? Receives meals on wheels.? HH aide comes in twice a week for an hour to help with bathing and some chores at home.? Goes to MD appointments visa [facility].? OBJECTIVE Respiratory: room air, tolerates well Language: Grossly WFL verbal expression/fluency, naming, repetition, auditory comprehension Mental Status: Alert and Oriented to person, place, time, event Recall of current events intact Speech: 100% intelligible with very mild characteristics consistent with edentulousness Oral Motor Exam: ? Dentition ? Partially edentulous ? Oral Mucosa ?Moist ? Good oral care ? CN V - Trigeminal ? Sensation - DNT ? Jaw Movement ?Impaired Vertical ROM?(patient states I've always had a very small mouth, this is normal for me)? CN VII ? Labial/Facial ? WFL ? CN IX ? Palate ? WFL ? CN X ? Laryngeal ? MPT - DNT ? Vocal quality ? WFL ?Volitional cough ? Sharp & strong ? CN XII ? Lingual ? WFL ? Volitional Swallow ? Suspect delayed onset of swallow ? [place] Swallow Protocol Results ? PASS: Complete/uninterrupted without s/sx aspiration ? Food items tested: ?? None. Further swallow assessment not warranted at this time.? Ice: X IDDSI 0: IDDSI 1: IDDSI 2: IDDSI 3: X IDDSI 4: X IDDSI 5: X IDDSI 6: IDDSI 7: X Pill/tablet: single, whole, with thin liquid via straw Oral phase: WFL Leakage from mouth Difficulty with bolus manipulation Difficulty with a-p transport X Difficulty chewing - mild prolonged Pocketing X Residue - mild with dry solids Pharyngeal phase: WFL Delayed swallow initiation Reduced hyolaryngeal elevation/excursion Cough after swallow Voice change after swallow? Throat clearing? Endorsed stasis? Provided education to: Patient, Nursing Topics Addressed: anatomy/physiology of swallowing mechanism, overt s/sx to monitor for re: potential aspiration of food / liquids, recommendations for improved oral care, relationship between respiratory function changes and deglutition, Rationale for recommendations as outlined below, Reflux counseling Outcome: Verbalized/demonstrated understanding Goals: .1 Patient will tolerate safest/least restrictive diet of (6)Soft/Bite Size SOLIDS and (0) Thin LIQUIDS without s/sx aspiration. -IN PROGRESS - patient with limited trials of level 6 solids this date during evaluation, will benefit from direct or indirect follow-up to ensure tolerance of this texture across full meal with utilization of strategies as indicated. 2. Patient/caregiver will verbalize/demonstrate understanding of education r/t anatomy/physiology of normal vs disordered swallowing mechanism, overt s/sx to monitor for re: potential aspiration of food liquids, recommendations for improved oral care, relationship between respiratory function changes and deglutition, rationale for risk management strategies. - GOAL MET X1 this date SMALL PACKAGE AND BUNDLE SORTER CLERK CPT Code: 37371 Clinical Swallowing Evaluation Time spent: 40 min Coding
--- NOTE | 2022-04-06 11:59 | CMPROGNOTE_ITS ---
- If Service Date Differs Date of service: 04/06/22 Time of Service: 11:59 Care Management Progress Note S/O: Missy was lying in bed when CM met with her. She reported that she is feeling better today, and is waiting to hear the determination of MD regarding her plan of care. Per report, she has been accepted in transfer to [facility], pending bed availability, which is expected tomorrow. She is agreeable to transfer. Once a bed becomes available, EMS transport will be coordinated by RN supervisor labor gang. CM will continue to follow. A: Missy is a 66 year old woman admitted on 04/02/22 with dehydration and dyspnea P: Missy will likely return home with a resumption of services which includes: RN and OT as well as private caregivers. She will follow up with her PCP and plan of care and transport via private vehicle. CM will continue to support Missy and her discharge needs.
[2022-04-06] MEDS: Gabapentin 300 MG CAP PO (13:56)
--- NOTE | 2022-04-06 14:01 | W.PM.PROGNOT ---
Date of Service Date of service: 04/06/22 Time of Service: 14:01 Assessment and Plan Assessment and plan (1) Fluid collection at surgical site: Status: Acute Assessment and plan: MRI does not show definitive communication between the collection and the spinal canal. Discussed with Dr Kirk of neurosurgery at [facility]. He feels that this collection represents CSF. He feels the patient should be evaluated at [facility] with more detailed imaging, etc, and accepts the patient in transfer with bed availability expected tomorrow. Ms Kim agrees to transfer. (2) Elevated troponin: Status: Acute Assessment and plan: Very mild elevation of troponin on presentaiton. Suspect mild type 2 nstemi in setting of very mild hypoxia due to atelectasis and tachycardia. Ok to resume asa. No blood in stool - heme negative. Echo with preserved EF and w/o evidence of wall motion abnormalities. Increase metoprolol to 25 mg PO BID. PE ruled out. Would benefit from outpatient stress test, if so desires. (3) Blood in stool: Status: Acute Assessment and plan: Heme negative. Suspect blood been seen on prior BM from having hemorrhoids and having to strain. Continue bowel regimen - to get an enema today. Continue a diet. Ok to resume asa and DVT ppx. No further workup indicated at this time. (4) Tachycardia: Status: Acute Assessment and plan: Improved with initiation of BB. Increase lopressor to 25 mg PO BID. I think that spinal cord pathology could be the culprit. Procalcitonin 0.1 - possibility of infectious/bacterial process is low. PE ruled out with a negative CTA. No findings on echo to explain tachycardia. (5) Hypertension: Assessment and plan: Up-titrate beta walt. (6) Hypoxia: Status: Resolved Assessment and plan: I do not see evidence of COPD exacerbation. PE ruled out. Suspect atelectasis. Encourage IS. (7) Neurogenic bowel: Status: Acute Assessment and plan: Continue bowel regimen; to get an enema today. Normally self-disimpacts. (8) Prerenal azotemia: Status: Resolved Assessment and plan: Much improved. Finished IVF. (9) Acute hyponatremia: Status: Resolved Assessment and plan: Seems to be better since lisinopril was d/c'ed. Continue to monitor. (10) Acute hypokalemia: Status: Resolved Assessment and plan: Recheck in am (11) Hypomagnesemia: Status: Resolved Assessment and plan: Recheck in am. (12) Myasthenia gravis: Status: Chronic Assessment and plan: Continue pyridostigmine (13) GERD (gastroesophageal reflux disease): Status: Chronic Assessment and plan: IV PPI BID. Speech therapy consulted. (14) COPD (chronic obstructive pulmonary disease): Status: Chronic Assessment and plan: Not in acute exacerbation. not on oxygen at home Will need PFTs as outpatient. (15) Peripheral neuropathy: Assessment and plan: Continue current regimen. (16) DVT prophylaxis: Status: Acute Assessment and plan: Resume lovenox. Heme negative. Ok to d/c SCDs. (17) Discharge planning issues: Status: Acute Assessment and plan: DNR/DNI Consulted palliative care, PT, OT. Accepted in transfer to [facility] with bed availability pending for tomorrow. Discussed with Dr Bustillos (neurosurgery, [facility]), who is the accepting provider. Subjective Subjective Interval history since last seen: Ms Kim states that she is feeing ok today. She did have a hard BM yesterday and agrees to an enema because she still feels constipated. She denies dizziness, chest pain, shortness of breath, nausea. She is in agreement with transfer to [facility] where she was accepted by Dr Kirk. Exam Narrative Exam Narrative: General: Pleasant female who is A&Ox3, NAD HEENT: EOMI, MMM Heart: RRR, no m/r/g Lungs: Diminished breath sounds B, Abdomen: soft, nontender, nondistended Extremities: trace BLE edema, symmetric, pedal pulses not palpable on my exam, B foot drop. Objective Last Vital Signs Temp 36.8 C 04/06/22 11:05 Pulse 91 H 04/06/22 11:05 Resp 16 04/06/22 11:05 BP 138/84 04/06/22 11:05 Pulse Ox 95 04/06/22 11:05 Laboratory Results - last 24 hr 04/05/22 04/06/22 04/06/22 20:26 03:15 06:50 WBC RBC Hgb Hct MCV MCH MCHC RDW Plt Count MPV Immature Gran % Neutrophils % Lymphocytes % Monocytes % Eosinophils % Basophils % Nucleated RBC % Absolute Neutrophils Absolute Lymphocytes Absolute Monocytes Absolute Eosinophils Absolute Basophils Sodium 135 L Potassium 4.0 Chloride 99 Carbon Dioxide 30.2 Anion Gap 5.8 BUN 20 H Creatinine 1.0 Estimated GFR/1.73 m2 55.47 Glucose 94 Calcium 8.9 Magnesium 2.2 C-Reactive Protein 0.98 H COVID-19 Source Cancelled Nasal/Nares SARS-CoV-2 (PCR) Cancelled Negative 04/06/22 06:50 WBC 8.64 RBC 4.63 Hgb 13.4 Hct 40.8 MCV 88 MCH 28.9 MCHC 32.8 RDW 13.2 Plt Count 363 MPV 9.2 Immature Gran % 0.9 Neutrophils % 65.7 Lymphocytes % 18.8 Monocytes % 11.5 Eosinophils % 2.5 Basophils % 0.6 Nucleated RBC % 0.0 Absolute Neutrophils 5.68 Absolute Lymphocytes 1.62 Absolute Monocytes 0.99 H Absolute Eosinophils 0.22 Absolute Basophils 0.05 Sodium Potassium Chloride Carbon Dioxide Anion Gap BUN Creatinine Estimated GFR/1.73 m2 Glucose Calcium Magnesium C-Reactive Protein COVID-19 Source SARS-CoV-2 (PCR)
--- NOTE | 2022-04-06 17:06 | CHAPLAIN ---
Missy lives alone at the [facility] and has a care information associate and counselor who visit her there. She told me today she is being transferred to [facility] tomorrow to check on some fluid that is on her spine. She said she expected to be discharged from there. Missy didn't identify and relatives being close by here when I asked about family. I'll visit again with a prahiral keitawl before she is transferred.
[2022-04-06] MEDS: Metoprolol 25 MG TAB PO (20:31)
[2022-04-06] MEDS: Melatonin 3 MG TAB 6 MG PO (22:32)
[2022-04-06] MEDS: Cyclobenzaprine 10 MG TAB 20 MG PO (22:32)
[2022-04-07] VITALS (8 sets, daily range): BP systolic 122–158; BP diastolic 72–100; PULSE 70–97; RESP 16–20; TEMP 36.3–37.5; O2SAT 94–98
[2022-04-07] MEDS: Bisacodyl 10 MG SUPP PR (06:50)
[2022-04-07] MEDS: Milk of Magnesia 30 ML CUP PO (06:50)
[2022-04-07 07:20] LABS: Platelet Count 333 10^3/uL (130-400)
[2022-04-07] MEDS: Enoxaparin 40 MG/0.4 ML SYR SC (08:52)
[2022-04-07] MEDS: Polyethylene Glycol 3350 17 GM PACKET PO (08:52)
[2022-04-07] MEDS: Aspirin 81 MG CHEW PO (08:53)
[2022-04-07] MEDS: Magnesium Chloride 64 MG TABCR PO ×2 (08:53→20:01)
[2022-04-07] MEDS: Metoprolol 25 MG TAB PO ×2 (08:53→20:01)
[2022-04-07] MEDS: Pantoprazole 40 MG TABCR PO (08:53)
[2022-04-07] MEDS: Senna TAB 1 TAB PO ×2 (08:53→20:01)
[2022-04-07] MEDS: Docusate Sodium 100 MG CAP PO ×3 (08:53→20:01)
[2022-04-07] MEDS: Folic Acid 1 MG TAB PO (08:53)
[2022-04-07] MEDS: Gabapentin 300 MG CAP 600 MG PO ×2 (08:54→20:01)
--- NOTE | 2022-04-07 11:52 | PDOC.CMPRO ---
- If Service Date Differs Date of service: 04/07/22 Time of Service: 11:52 Care Management Progress Note S/O: Missy was resting when CM attempted to meet with her. Per MD, she was accepted for transfer to [facility] today, pending bed availability. Missy is agreeable to transfer. CM will continue to follow. A: Missy is a 66 year old woman admitted on 04/02/22 with dehydration and dyspnea P: Missy is being transferred to [facility], per MD. She will transport via EMS, coordinated by RN supervisor coin machine. Once medically cleared, she will return home with a resumption of caregivers and HH. She will follow up with her PCP and discharge plan of care.
[2022-04-07] MEDS: Gabapentin 300 MG CAP PO (13:20)
--- NOTE | 2022-04-07 14:45 | PT.INTREAT ---
PT Notes Visit Reasons: Dehydraion,Azotemia,Dyspnea,Hypoxia Inpatient Physical Therapy Treatment Note [facility] Date: 04/07/22 SUBJECTIVE: Missy states that she thought she was going to [facility] today, but has not heard anything yet. She offers no complaints to me today. She politely refused PT in pm, as she was just cleaned up and back to bed. Too tired right now. OBJECTIVE: [] THEREX: performed a global LE strength and stabilization routine. LAQ x10 ea, seated hip flex x10ea, hip abd/add with legs on leg rests (unlocked) x 10ea. SAQ and SLR x 10 ea as well as ankle pumps x 10. Held ex in pm due to fatigue. ASSESSMENT: tolerated session well without c/o pain. Noted increased fatigue as ex progressed along. PLAN: will continue to progress her strength and functional mobility to tolerance following PT POC. TREATMENT CODE/TIME: 20 min. [id number]
--- NOTE | 2022-04-07 16:02 | W.PM.DS.N ---
Date of service: 04/07/22 Time of Service: 16:02 DS: Diagnosis Discharge Diagnosis (1) Tachycardia: Status: Acute (2) Neurogenic bowel: Status: Acute (3) Constipation, chronic: Status: Acute (4) Chronic renal insufficiency: Status: Acute (5) Myasthenia gravis: Status: Chronic (6) COPD (chronic obstructive pulmonary disease): Status: Chronic (7) Elevated troponin: Status: Acute (8) External bleeding hemorrhoids: Status: Acute (9) Hypomagnesemia: Status: Resolved (10) Acute hypokalemia: Status: Resolved (11) Acute hyponatremia: Status: Resolved (12) Hypoxia: Status: Resolved (13) Atelectasis: Status: Acute (14) Oropharyngeal dysphagia: Status: Acute (15) Fluid collection at surgical site: Status: Acute Discharge Plan Disposition Patient Disposition: 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, CAD s/p CABG, COPD not on home O2, myesthenia gravis, neurogenic bladder and bowel, who was admitted to [facility] hospitalist service on 04/02/22, having presented with mild shortness of breath and hypoxia to 91%. She also reported confusion and difficulty swallowing after taking cipro for a UTI as outpatient. On presentation, she was found to be dehydrated and in a prerenal JADE with hyponatremia, hypokalemia, and hypomagnesemia. She had an elevated d-dimer. She had a mildly elevated troponin without ischemic changes on the EKG. She did not have evidence of an acute pneumonia or a UTI. She was hydrated and treated with empiric anticoagulation until her creatinine improved, at which point she underwent a CTA of the chest to rule out a PE (which was negative). Her elevated troponins (94->144->89) are felt to be due to demand ischemia (tachycardia, mild hypoxia). She was initiated on beta walt with good response. Her echo did not have wall motion abnormalities. If he patient so chooses, she could undergo outpatient stress testing. We think that the etiology of her borderline hypoxia was atelectasis or transient aspiration pneumonitis. She was evaluated by speech therapy who did not observe dysphagia but given the patient's history feel she would benefit from outpatient speech therapy follow up. Meanwhile, on CTA of the chest, a fluid collection was observed posterior to the spinal cord at a thoracic level (T1-T6). Imaging was reviewed with [facility] neurosurgery and MRI was recommended. MRI of the thoracic spine confirmed a 6.3 x 2.7 x 5.4 cm fluid collection posterior to the spinal cord and not communicating with the spinal cord. Etiology of this is felt to be CSF, per Dr Kirk who reviewed the images and feels the patient should be evaluated by a neurosurgeon on inpatient basis. She was accepted in transfer to [facility] by Dr Kirk pending bed availability. The patient is agreeable to transfer and is stable for transfer. On this admission, the patient was also constipated and required institution of a bowel regimen. On one occasion, her stools were noted to have blood on them which is felt to be due to hemorrhoidal bleeding. Since then, all stools were hemoccult negative. Please, look for MAR for list of her inpatient medications. The list of medications below reflects the patient's prior to admission prescriptions. Care for patient as well as completion of her transfer summary on day of transfer took 60 minutes. Home Meds and New Rx's Prescriptions: No Action sennosides 8.6 mg tablet 8.6 mg PO BID PRN Label Comments: Pt reports not taking for @ 1 month zolpidem [Ambien] 5 mg tablet 5 mg PO QHS PRN (Reason: insomnia) Rx Instructions: 1-2 tabs gabapentin 300 mg capsule 1,500 mg PO DIRECTED Rx Instructions: 2 capsules PO QAM, 1 capsule PO midday, 2 capsules QHS. No abrupt cessation. lisinopril 5 mg tablet 10 mg PO DAILY acetaminophen 500 mg tablet 1,000 mg PO TID PRN PRN (Reason: pain) Qty: 90 0RF ondansetron 4 mg tablet,disintegrating 4 mg PO Q8H PRN (Reason: nausea and vomiting) Qty: 30 3RF fentanyl 75 mcg/hr patch 72 hour 1 patch transdermal Q72H furosemide 20 mg tablet 20 mg PO DAILY Qty: 30 0RF lidocaine [Lidoderm] 5 % adhesive patch,medicated 1 patch topical DAILY PRN (Reason: pain) Qty: 30 5RF Label Comments: Pt reports she doesnt have lidocaine patch on at this time. Rx Instructions: leave on most painful area for up to 12 hrs; leave off for 12 hours between cyclobenzaprine 10 mg tablet See Rx Instructions PO .COMPLEX Qty: 270 3RF Rx Instructions: orally 20mg HS with an additional 10mg once daily prn neck spasms; pantoprazole 40 mg Tablet,Delayed Release (Dr/Ec) See Rx Instructions .ROUTE .COMPLEX Qty: 42 0RF Rx Instructions: 40 mg orally bid x 2 wks, then daily folic acid 1 mg Tablet 1 mg PO DAILY AM Qty: 30 0RF pyridostigmine bromide [Mestinon Timespan] 180 mg tablet extended release 180 mg PO HS Discharge Instructions Referrals: Lopez Kirk I [ NON-[facility] STAFF PHYSICIAN] - Activity:: Activity as Tolerated Equipment/Supplies:: No Equipment Needed Diet:: As Tolerated Discharge Orders Discharge Orders: Discharge Order (Routine); Ordered 04/07/22 Ordered By: Kat Moran DS: Summary Time Spent with Patient providing and/or coordinating discharge services: Greater than 30 minutes Status at Discharge Functional status at discharge: wheelchair bound Overall status at discharge: patient is back to baseline Mental Status: mental status grossly normal Speech and Movement: speech and movement normal Mood: congruent mood Affect: normal affect Exam Narrative Exam Narrative: General: Pleasant female who is A&Ox3, NAD HEENT: EOMI, MMM Heart: RRR, no m/r/g Lungs: Diminished breath sounds B, Abdomen: soft, nontender, nondistended Extremities: trace BLE edema, symmetric, pedal pulses not palpable on my exam, B foot drop. Psych Mental Status: mental status grossly normal Speech and Movement: speech and movement normal Mood: congruent mood Affect: normal affect DS: Data Vitals/I&O Vitals and I&O: Vital Signs Temperature 36.6 C 04/07/22 11:24 Temperature Source Tympanic 04/07/22 11:24 Pulse 70 04/07/22 11:24 Pulse Rhythm Regular 04/07/22 15:21 Pulse 102 H 04/02/22 21:20 Respiratory Rate 16 04/07/22 11:24 Respiratory Effort 04/07/22 15:21 Respiratory Depth Normal 04/07/22 15:21 Respiratory Pattern Irregular 04/07/22 15:21 Blood Pressure 124/85 04/07/22 11:24 Blood Pressure Mean 102 04/02/22 21:15 Blood Pressure Position Sitting 04/02/22 17:39 Pulse Oximetry 98 04/07/22 11:24 Oxygen Delivery Method Room Air 04/07/22 11:24 Oxygen Flow Rate 0 04/07/22 11:24 Pain Level 5 04/07/22 11:24 Comment 04/06/22 03:05 Intake & Output 04/06/22 04/07/22 04/07/22 23:59 11:59 23:59 Intake Total 930 / 930 360 / 600 240 / 600 Output Total 1800 / 2700 1100 / 1325 225 / 1325 Balance -870 / -1770 -740 / -725 15 / -725 Intake: IV Oral 920 / 920 350 / 590 240 / 590 Output: Urine 1800 / 2700 1100 / 1325 225 / 1325 Other: Urine Color Pale Yellow Pale Yellow Yellow Urine Appearance Clear Clear Clear Comment applied split gauze to entry site Stool Occult Blood Negative Negative Stool Size Small Large Stool Characteristics Soft Soft Brown Formed Data Completed and Pending Completed studies during hospitalization [Text1]: CXR: Stable appearance of chest from June 2021.? CTA chest: Negative CT angiogram of the chest. No evidence of pulmonary embolic disease. Incidental posterior fluid collection with associated spinal deformity, please see above discussion, clinical correlation requested. Echo: Normal left ventricular wall thickness and chamber size.? Estimated ejection fraction is 55%.? No segmental wall motion abnormalities are seen Right ventricle is not well visualized Normal left atrial size.? Right atrium not well visualized There are no structural or hemodynamically significant valvular abnormalities Mildly dilated aortic root Mild pericardial effusion Venous doppler BLEs: Right: Negative for DVT Left: Negative for DVT MRI Thoracic spine: 1. Postsurgical changes of laminectomies from T1 through T4. 2. Stable large thoracic spine syrinx. 3. 6.3 x 2.7 x 5.4 cm fluid collection in the soft tissues posterior to the laminectomy defects.? No definite communication with the spinal canal contents is identified on this examination.? This may represent a seroma or possible abscess.? Labs on day of discharge: Labs from last 24 hours 04/07/22 07:00 Plt Count 333 PFSH All Active Problems (Updated 04/07/22 @ 16:11 by Kat Moran MD) Fluid collection at surgical site (Acute) Oropharyngeal dysphagia (Acute) Atelectasis (Acute) External bleeding hemorrhoids (Acute) Palliative care patient (Acute) Blood in stool (Acute) Elevated troponin (Acute) Tachycardia (Acute) Neurogenic bowel (Acute) Fluid collection at surgical site (Acute) Discharge planning issues (Acute) DVT prophylaxis (Acute) Bursitis of left shoulder (Acute) Rupture of left proximal biceps tendon (Acute) Ulnar neuropathy of left upper extremity (Acute) Carpal tunnel syndrome of left wrist (Acute) Left shoulder pain (Acute) Protein malnutrition (Acute) Generalized weakness (Acute) DNI (do not intubate) (Acute) DNR (do not resuscitate) (Acute) POLST (Physician Orders for Life-Sustaining Treatment) (Acute) COLST completed 10/30/2020 with MAUREEN Marley, DNR/DNI Constipation, chronic (Acute) Ataxia (Acute) Left hand weakness (Acute) Chronic renal insufficiency (Acute) Chronic pain (Chronic) Asymptomatic microscopic hematuria (Acute) Myasthenia gravis (Chronic) GERD (gastroesophageal reflux disease) (Chronic) Intracranial arachnoid cyst (Chronic) COPD (chronic obstructive pulmonary disease) (Chronic) Medical History (Updated 04/07/22 @ 16:11 by Kat Moran MD) Anxiety Arachnoid cyst Blood loss anemia Blurred vision Bunion of unspecified foot Dental caries Depression Former smoker Frequent falls Gastric ulcer History of gluten intolerance History of lacunar cerebrovascular accident Hyperlipidemia Hypertension Hypokalemia Insomnia previous misuse of Ambien Left arm weakness Migraine headache without aura Neurogenic bladder Neuropathic pain of both legs Pain Peripheral neuropathy Prediabetes Spasticity Spinal stenosis Syrinx of spinal cord Starting at C3 and extending to T11 Urinary frequency Urinary retention Weakness Surgical History H/O craniotomy ; L cerebellar arachnoid cyst drain with shunt placement H/O esophagogastroduodenoscopy (~07/2021) 09/2021 H/O thymectomy 1980s S/P appendectomy S/P cystourethroscopy with dilation of urethral stricture S/P tonsillectomy Family History Mother Diabetes Father Neuropathy Back problem Brother Myasthenia gravis Social History Smoking/Tobacco Use Status: Former Tobacco Use Quit Date: 08/15/16 Smoking risk assessment performed?: Yes Alcohol Intake: former Drug use: Never Substance use type: does not use Household members: other Housing: senior care Number of Children: 0 Pets and animals: No Current gender identity: female What type of physical activity do you participate in: none Seatbelt use: always Do you feel safe at home: Yes (Pt lives alone) Do you feel safe in your relationship?: No
--- NOTE | 2022-04-07 18:30 | INDS_ITS ---
Date of service: 04/07/22 PT Notes Visit Reasons: Dehydraion,Azotemia,Dyspnea,Hypoxia Physical Therapy Inpatient Discharge Summary Date: 04/07/2022 Dates of Service: 04/05/2022 through 04/07/2022 This is a clinical summary of care provided for the duration of dates listed above. No charge was made in the completion of this documentation. Referring Doctor:? Kat Moran MD PT Orders: PT CONSULT: Limited ability Precautions: Standard.??Paraparetic,? wheelchair-bound.? Stand-squat transfers only after set up of wheelchair,? does better leading with R LE. Patient Profile/Admitting Diagnosis: Orders received for this 66-year-old female with a history of myasthenia gravis, spinal cord decompression, and a host of multiple other health ailments presented to the ED on 04/02/2022 due to increasing weakness and shortness of breath related to urinary tract infection.? Diagnosed with prerenal acidemia, hypoxia, acute hyponatremia, acute hypokalemia, hypomagnesemia, GERD, COPD, and peripheral neuropathy. PMHX: All Active Problems?(Updated 04/03/22 @ 01:24 by Lucio Hsieh MD) Prerenal azotemia (Acute) DVT prophylaxis (Acute) Hypomagnesemia (Acute) Acute hypokalemia (Acute) Acute hyponatremia (Acute) Hypoxia (Acute) Bursitis of left shoulder (Acute) Rupture of left proximal biceps tendon (Acute) Ulnar neuropathy of left upper extremity (Acute) Carpal tunnel syndrome of left wrist (Acute) Left shoulder pain (Acute) Protein malnutrition (Acute) Generalized weakness (Acute) DNI (do not intubate) (Acute) DNR (do not resuscitate) (Acute) POLST (Physician Orders for Life-Sustaining Treatment) (Acute) COLST completed 10/30/2020 with MAUREEN Marley, DNR/DNI Constipation, chronic (Acute) Ataxia (Acute) Left hand weakness (Acute) Chronic renal insufficiency (Acute) Chronic pain (Chronic) Asymptomatic microscopic hematuria (Acute) Myasthenia gravis (Chronic) GERD (gastroesophageal reflux disease) (Chronic) Intracranial arachnoid cyst (Chronic) COPD (chronic obstructive pulmonary disease) (Chronic) Medical History?(Updated 04/03/22 @ 01:24 by Lucio Hsieh MD) Anxiety Arachnoid cyst Blood loss anemia Blurred vision Bunion of unspecified foot Dental caries Depression Former smoker Frequent falls Gastric ulcer History of gluten intolerance History of lacunar cerebrovascular accident Hyperlipidemia Hypertension Hypokalemia Insomnia previous misuse of Ambien Left arm weakness Migraine headache without aura Neurogenic bladder Neuropathic pain of both legs Pain Peripheral neuropathy Prediabetes Spasticity Spinal stenosis Syrinx of spinal cord Starting at C3 and extending to T11 Urinary frequency Urinary retention Weakness Surgical History? H/O craniotomy ; L cerebellar arachnoid cyst drain with shunt placement H/O esophagogastroduodenoscopy (~07/2021) 09/2021 H/O thymectomy S/P appendectomy S/P cystourethroscopy with dilation of urethral stricture S/P tonsillectomy Social History/Home Situation: Patient lives at home alone.? Main mode of mobility indoors and outdoors is wheelchair.? Receives meals on wheels.? HH aide comes in twice a week for an hour to help with bathing and some chores at home.? Goes to MD appointments visa [facility].? Equipment Owned/DME: Wheelchair Subjective: NT. See most recent HAIR SPINNING MACHINE OPERATOR notes. Objective: General inspection:?NT. See most recent HAIR SPINNING MACHINE OPERATOR notes. Mental Status: NT. See most recent HAIR SPINNING MACHINE OPERATOR notes. Pain: NT. See most recent HAIR SPINNING MACHINE OPERATOR notes. ROM: Right Upper Extremity: ? Shoulder Flexion WFL. Shoulder abduction WFL. Elbow flexion WFL. Wrist flexion WFL. Functional opening and closing of hand limited Left Upper Extremity:? Shoulder Flexion WFL. Shoulder abduction WFL. Elbow flexion WFL. Wrist flexion WFL. Functional opening and closing of hand WFL. Right Lower Extremity: Hip flexion allows up to 90 degrees. Hip abduction 10 degrees. Knee flexion up to 90 degrees passively. Ankle dorsiflexion 5 degrees. Ankle plantarflexion 5 degrees. Left Lower Extremity: Hip flexion allows up to 90 degrees. Hip abduction 0 degrees. Knee flexion up to 90 degrees passively. Ankle dorsiflexion 5 degrees. Ankle plantarflexion 5 degrees. Strength: Right Upper Extremity: Shoulder flexors 4-/5. Shoulder abductors 4-/5. Elbow flexors 4-/5. Elbow extensors 4-/5. Credit Assessment Analyst weak but functional Left Upper Extremity: Shoulder flexors 4-/5. Shoulder abductors 4-/5. Elbow flexors 4-/5. Elbow extensors 4-/5. Credit Assessment Analyst weak but functional Right Lower Extremity: Hip flexors 3-/5. Hip abductors 2-/5. Knee flexors 2-/5. Knee extensors 2-/5. Ankle dorsiflexors 2-/5. Ankle plantarflexors 3-/5. Left Lower Extremity: Hip flexors 3-/5. Hip abductors 2-/5. Knee flexors 2-/5. Knee extensors 2-/5. Ankle dorsiflexors 2-/5. Ankle plantarflexors 3-/5. Sensation:? Impaired in B UE as to light touch and pain BED MOBILITY/TRANSFERS? Supine-sit: stand by assist Sit-squat: minimal assist ? Squat-sit: minimal assist Squat-pivot transfer:? minimal assist using B hands for support ROOM EXERCISES: Patient was instructed to perform 5 chair push ups every hour to relieve ischial and gluteal areas to maintain skin integrity. Gait:? Unable Wheelchair propulsion: Forward occasional assistance to avoid obstacles,? wheelchair a little too wide for patient Backward occasional assistance to avoid obstacles,? wheelchair a little too wide for patient Turn to R occasional assistance to avoid obstacles,? wheelchair a little too wide for patient Turn to L occasional assistance to avoid obstacles,? wheelchair a little too wide for patient Balance: Static Sitting: Good Dynamic Sitting: Good Static Standing: Poor Dynamic Standing: Poor ASSESSMENT: Requires assistnce of 1? for squat transfer from edge of bed to wheelchair leading with the L side.? Paraparetic from myasthenia gravis of 30 years, spinal stenosis,? and previous CVA.? Wheelchair bound and receives needed assistance at home.? May benefit from the use of hopsital bed to allow more independence with bed mobility and transfers.? Patient presents with clinical signs and symptoms consistent with current/admitting diagnoses that have resulted to mobility limitations, gait instability, generalized weakness, and overall ADL decline as demonstrated by the following impairment level findings: 1.? Decreased strength to B LE? major muscle groups 2.? Impaired sitting balance 3.? Impaired activity tolerance 4.? Limitation of joint range of motion in L hand, B UE joints 5.? Wheelchair bound 6.? Pain in L UE Impairments are contributing to the following functional limitations: 1.? Decline in bed mobility skills 2.? Decline in transfer skills 3.? Difficulty with ambulation without assistive device and physical assistance 4.? Increased completion time for mobility ADL performance 5.? Increased risk for falls 6.? Difficulty with managing steps alone safely Goals: Goals X1 week 1. Supine-Sit? independent NOT MET 2. Sit-Supine? independent NOT MET 3. Sit-squat independent after set up of wheelchair NOT MET 4. Squat to sit ? independent after set up of wheelchair NOT MET 5. Wheelchair propulsion independent NOT MET DISCHARGE RECOMMENDATIONS: [] ? Home with no services [] [X] ? Home with services.? Home when medically cleared by hospitalist.? Patient will benefit from home health PT services in order to progress mobility level using least restrictive assistive ambulatory device, assess home safety, identify additional equipment needs, and establish a functional maintenance program that will increase ability of patient to remain at home. [] ? Home with outpatient PT [] [] ? SNF for continued rehabilitation [] [] ? Self Pay [facility] [] [] ? SNF versus LTC based on ability to participate and progress [] TREATMENT CODE/TIME: NE Thank you for the opportunity to participate in the care of this patient. Ching Viveros PT, DPT, CLT [facility] [place], [place]
[2022-04-07] MEDS: Cyclobenzaprine 10 MG TAB 20 MG PO (20:02)
[2022-04-07] MEDS: Melatonin 3 MG TAB 6 MG PO (20:08)
[2022-04-08] VITALS: BP 152/89; PULSE 72; RESP 18; TEMP 36.4; O2SAT 94
--- NOTE | 2022-04-08 00:12 | NUR.NOTE ---
Addendum entered by Logan Gonzales RN 04/08/22 01:13: UVAgusto RN called at 0113 and given report, all questions answered Addendum entered by Logan Gonzales RN 04/08/22 00:50: called NEERAJ RN again at 0050, RN states she is in another patient room, stated she will call this RN back. informed that pt left [facility] facility at 0013 Addendum entered by Logan Gonzales RN 04/08/22 00:36: RN was not available at 0015, stated she would call back when out of patient room Original Note: Nursing Note: calex to floor at 0010, report given by this RN, pt off floor at 0013. report called to NEERAJ RN at 0015
== END 2022-04-08 00:12 | DRG 206 ==
LOC: ER 21:05 → MS 21:39
PROVIDERS: Internal Medicine; Admitting Provider Internal Medicine; Emergency Provider Emergency Medicine; PCP Nurse Practitioner Family; Visit Provider Internal Medicine
DX: J98.11 Atelectasis (principal); N17.9 Acute kidney failure, unspecified; E46 Unspecified protein-calorie malnutrition; E87.1 Hypo-osmolality and hyponatremia; I24.8 Other forms of acute ischemic heart disease; K59.2 Neurogenic bowel, not elsewhere classified; G95.0 Syringomyelia and syringobulbia; R00.0 Tachycardia, unspecified; R09.02 Hypoxemia; R53.1 Weakness; Z66 Do not resuscitate; K59.09 Other constipation; N18.9 Chronic kidney disease, unspecified; G89.29 Other chronic pain; G70.00 Myasthenia gravis without (acute) exacerbation; K21.9 Gastro-esophageal reflux disease without esophagitis; G93.0 Cerebral cysts; J44.9 Chronic obstructive pulmonary disease, unspecified; R74.8 Abnormal levels of other serum enzymes; E87.6 Hypokalemia; Z87.891 Personal history of nicotine dependence; G62.9 Polyneuropathy, unspecified; Z93.51 Cutaneous-vesicostomy status; I25.10 Atherosclerotic heart disease of native coronary artery without angina pectoris; R13.12 Dysphagia, oropharyngeal phase; N31.9 Neuromuscular dysfunction of bladder, unspecified; K64.8 Other hemorrhoids; E86.0 Dehydration; E83.42 Hypomagnesemia
CPT/HCPCS: 93971; 93308; 36415; 71275; 80048; 80053; 80061; 84145; 87635; 87637; 92610; 93005; 96365; 96372; 97110; 97162; 97166; 97530; 97535; 99284; 99285; J1650; 71045; 72157; 81003; 81015; 83735; 84484; 85014; 85018; 85025; 85049; 85379; 86140; 93010; 93306; 93970; 99223; 99233; 99239; J1200; J1644; J2930; J3475; J3490; J7512; J7620

== ENCOUNTER → 2022-05-26 12:39 | Outpatient (BNVA) | payer OTHER, SELFPAY | PROVIDERS: Referring Provider Nurse Practitioner Family; Visit Provider Psychiatry & Neurology Neurology | DX: G95.0 Syringomyelia and syringobulbia (principal); G93.0 Cerebral cysts; G70.00 Myasthenia gravis without (acute) exacerbation; G56.02 Carpal tunnel syndrome, left upper limb; G56.22 Lesion of ulnar nerve, left upper limb; G57.93 Unspecified mononeuropathy of bilateral lower limbs; G62.1 Alcoholic polyneuropathy; B02.29 Other postherpetic nervous system involvement; R29.898 Other symptoms and signs involving the musculoskeletal system; G47.00 Insomnia, unspecified; K59.00 Constipation, unspecified; F32.A Depression, unspecified | CPT/HCPCS: 99215 ==

== ENCOUNTER 2022-06-07 11:52 | Emergency (ER) | payer OTHER, SELFPAY ==
[2022-06-07 11:56] VITALS: BP 163/109; PULSE 90; RESP 16; TEMP 34.9; O2SAT 90
--- NOTE | 2022-06-07 13:50 | W.ED.GENAD ---
Discharge Plan Disposition Patient Disposition: HOME Condition: Stable Discharge Details Clinical Impression: Closed fracture nasal bone, Head injury Primary Care Provider: Unknown,Unknown ED Provider: Itzel Bernardo Home Meds and New Rx's Prescriptions: Continued sennosides 8.6 mg tablet 8.6 mg PO BID PRN Label Comments: Pt reports not taking for @ 1 month zolpidem [Ambien] 5 mg tablet 5 mg PO QHS PRN (Reason: insomnia) Rx Instructions: 1-2 tabs gabapentin 300 mg capsule 1,500 mg PO DIRECTED Rx Instructions: 2 capsules PO QAM, 1 capsule PO midday, 2 capsules QHS. No abrupt cessation. lisinopril 5 mg tablet 10 mg PO DAILY acetaminophen 500 mg tablet 1,000 mg PO TID PRN PRN (Reason: pain) Qty: 90 0RF ondansetron 4 mg tablet,disintegrating 4 mg PO Q8H PRN (Reason: nausea and vomiting) Qty: 30 3RF fentanyl 75 mcg/hr patch 72 hour 1 patch transdermal Q72H furosemide 20 mg tablet 20 mg PO DAILY Qty: 30 0RF cyclobenzaprine 10 mg tablet See Rx Instructions PO .COMPLEX Qty: 270 3RF Rx Instructions: orally 20mg HS with an additional 10mg once daily prn neck spasms; lidocaine 5 % adhesive patch,medicated See Rx Instructions .ROUTE .COMPLEX Qty: 30 5RF Dose Instruction: APPLY ONE PATCH TOPICALLY TO THE SKIN DIRECTED, 12 HOURS ON AND THEN 12 HOURS OFF Rx Instructions: APPLY ONE PATCH TOPICALLY TO THE SKIN DIRECTED, 12 HOURS ON AND THEN 12 HOURS OFF acetylcysteine 600 mg capsule 1,200 mg PO BID Qty: 120 3RF pyridostigmine bromide 180 mg tablet extended release See Rx Instructions .ROUTE .COMPLEX Qty: 90 3RF Dose Instruction: TAKE ONE TABLET BY MOUTH EVERY DAY Rx Instructions: TAKE ONE TABLET BY MOUTH EVERY DAY pantoprazole 40 mg Tablet,Delayed Release (Dr/Ec) See Rx Instructions .ROUTE .COMPLEX Qty: 42 0RF Rx Instructions: 40 mg orally bid x 2 wks, then daily folic acid 1 mg Tablet 1 mg PO DAILY AM Qty: 30 0RF Discharge Instructions Instructions: Nasal Fracture (ED) Additional Instructions: As discussed, your CT scan is concerning for nasal fracture. Please try to keep your head elevated when you are sleeping. You may use Tylenol and ibuprofen as needed for discomfort. Please ice the area to help with swelling. I have referred you to ENT for follow-up. They will call you to schedule follow-up appointment. Please try to avoid blowing your nose. If you develop fever/chills, increased pain, difficulty breathing, signficant bleeding or other new/worsening symptoms please seek care urgently once again. Referrals: Adam Ramos MD [ [facility] STAFF PHYSICIAN] - Discharge Data Discharge Date/Time-TO BE ENTERED AT DEPARTURE: 06/07/22 16:29 Medical Decision Making Patient is a pleasant 67-year-old female with history of myasthenia gravis, presenting today after falling forward out of her wheelchair. She reports that prior to arrival she was trying to take her Brar and was leaning forward towards the edge of her seat on her wheelchair when she lost her balance and fell forward landing on her face. She denies any loss of consciousness. Reports that she has a mild headache. She denies any visual changes. No nausea or vomiting. Denies any neck pain. Has not noted any new weakness. However, did have epistaxis which is since tamponade. Patient is not anticoagulated. She denies pain elsewhere. Patient does report that she lives the [facility], has home health. On exam, patient appears nontoxic. Initial O2 sat 90% but on reevaluation, after times if 96% on room air. No respiratory depression. Also recheck her temperature, she does not feel cold currently. No evidence to suggest skull fracture, no hemotympanum, ecchymosis behind the ears or raccoon eyes. She does have some dried blood in the right naris but no evidence to suggest a hematoma. She has some blood in the posterior oropharynx but this too seems appears to be scant and is no longer moving or collecting. Lungs are clear. No C-spine or thoracic tenderness. Neurologically intact with clear nerves II through XII. Swelling to the bridge of the nose. Concern for potential nasal fracture. Also considering possible intracranial hemorrhage. Will obtain CT. Patient declines any analgesics. She does not appear pale, hemodynamically stable with no tachycardia. Do not see need for laboratory evaluation. Fall is well remembered by the patient and mechanically days. CT Head: Ventricles and Extra axial spaces: Normal in size and morphology for the patient's age. Hemorrhage: None. Cerebral parenchyma: Normal no significant atrophy.? Mild white matter changes of small vessel disease. Brainstem/Cerebellum: Stable appearance of cystic area in the left cerebellar hemisphere with shunt in place, unchanged in position.? Chronic deformity and volume loss of the left cerebellar hemisphere. Calvarium: Stable chronic deformity with asymmetry in size of the right and left posterior fossa.? No acute fracture. Visualized Paranasal sinuses/Mastoids: Clear. Soft Tissues: Unremarkable. CT Face: Facial Bones: Minimally displaced nasal fractures.? No additional facial fractures.? Sinuses and Mastoids:? Unremarkable. Globes, extraocular muscles, optic nerves and retrobulbar fat:? Normal. Upper aerodigestive tract: Normal. Mandible and bilateral temporomandibular joints:? Normal. Soft tissues: Normal. IMPRESSION: 1. No acute intracranial process.Stable appearance cystic area left posterior fossa and asymmetry of cerebellar hemispheres. 2. Minimally displaced nasal fractures.? Discussed these findings with the patient. Again, no evidence of ICH. No active bleeding. No polyp. Patient able to breath comfortabley through nares. Patient ready for d/c to home. She is aware that she needs to be careful with bending forward as she was when seh fell. She will ice affected area. Discussed return precautions. Will refer to ENT for continued management. Discussed pain management options. All of her questions and concerns were addressed, she is in agreeemtn with this plan. [facility] General Date/Time Provider Initiated Documentation: 06/07/22 13:50. Limitations to Documentation: no limitations. Information obtained by: patient and RN notes reviewed. History of Present Illness 67 year old F presents to the emergency department with the chief complaint of fall, head injury and nasal trauma, described as moderate, with intensity rated at 4. Quality is described as aching, and is localized to the head and face. Patient reports no radiation. Patient started experiencing this hour(s) and it has been constant. No relieving factors improve symptom(s), No exacerbating factors reported . Patient notes no other symptoms.. Patient did receive the following treatments prior to arrival, none Related Data Home Medications Medication Instructions Recorded Confirmed acetaminophen 500 mg tablet 1,000 mg PO TID PRN PRN pain #90 03/13/21 06/09/22 tabs sennosides 8.6 mg tablet 8.6 mg PO BID PRN 04/16/21 06/09/22 zolpidem 5 mg tablet (Ambien) 5 mg PO QHS PRN insomnia 04/16/21 06/09/22 ondansetron 4 mg disintegrating 4 mg PO Q8H PRN nausea and 07/03/21 06/09/22 tablet vomiting #30 tabs folic acid 1 mg tablet 1 mg PO DAILY AM #30 tabs 07/14/21 06/09/22 pantoprazole 40 mg tablet,delayed See Rx Instructions .Route 07/14/21 06/09/22 release .COMPLEX #42 tabs gabapentin 300 mg capsule 1,500 mg PO DIRECTED 12/22/21 06/09/22 cyclobenzaprine 10 mg tablet See Rx Instructions PO .COMPLEX 01/04/22 06/09/22 #270 tabs fentanyl 75 mcg/hr transdermal 1 patch transdermal Q72H 01/28/22 06/09/22 patch lisinopril 5 mg tablet 10 mg PO DAILY 02/03/22 06/09/22 furosemide 20 mg tablet 20 mg PO DAILY #30 tabs 03/18/22 06/09/22 lidocaine 5 % topical patch See Rx Instructions .Route 05/10/22 06/09/22 .COMPLEX #30 patches acetylcysteine 600 mg capsule 1,200 mg PO BID #120 caps 05/31/22 06/09/22 pyridostigmine bromide 180 mg See Rx Instructions .Route 06/03/22 06/09/22 tablet,extended release .COMPLEX #90 tabs Previous Rx's Medication Instructions Recorded acetaminophen 500 mg tablet 1,000 mg PO TID PRN PRN pain #90 03/13/21 tabs ondansetron 4 mg disintegrating 4 mg PO Q8H PRN nausea and 07/03/21 tablet vomiting #30 tabs folic acid 1 mg tablet 1 mg PO DAILY AM #30 tabs 07/14/21 pantoprazole 40 mg tablet,delayed See Rx Instructions .Route 07/14/21 release .COMPLEX #42 tabs cyclobenzaprine 10 mg tablet See Rx Instructions PO .COMPLEX 01/04/22 #270 tabs furosemide 20 mg tablet 20 mg PO DAILY #30 tabs 03/18/22 lidocaine 5 % topical patch See Rx Instructions .Route 05/10/22 .COMPLEX #30 patches acetylcysteine 600 mg capsule 1,200 mg PO BID #120 caps 05/31/22 pyridostigmine bromide 180 mg See Rx Instructions .Route 06/03/22 tablet,extended release .COMPLEX #90 tabs Allergies Allergy/AdvReac Type Severity Reaction Status Date / Time codeine Allergy Severe pt unsure Verified 06/07/22 11:59 of reaction iodine Allergy Severe pt unsure Verified 06/07/22 11:59 of reaction Penicillins Allergy Severe Anaphylaxsi Verified 06/07/22 11:59 s Sulfa (Sulfonamide Allergy Severe Swelling/Ed Verified 06/07/22 11:59 Antibiotics) kendal trazodone AdvReac Intermediate PER PT Verified 06/07/22 11:59 MAKES HER HEART RACE. General Stated Complaint: Laceration ZEV: 4 Review of Systems Constitutional Constitutional: Reports as per HPI, Denies chills and Denies fever(s) Eyes Eyes: Reports as per HPI, Denies blurry vision, Denies change in vision and Denies loss of vision Cardiovascular Cardiovascular: Reports as per HPI, Denies chest pain and Denies dyspnea Respiratory Respiratory: Reports as per HPI, Denies cough, Denies pain on inspiration, Denies pain with cough and Denies dyspnea Gastrointestinal Gastrointestinal: Reports as per HPI, Denies abdominal pain, Denies nausea and Denies vomiting Musculoskeletal Musculoskeletal: Reports as per HPI Integumentary/Breasts Skin/Breast: Reports as per HPI Neurologic Neurologic: Reports as per HPI, Denies abnormal speech, Denies loss of vision and Denies paresthesias PFSH All Active Problems (Updated 06/07/22 @ 16:22 by RORY Garrett) Closed fracture nasal bone (Acute) Head injury (Acute) Palliative care patient (Acute) Fluid collection at surgical site (Acute) Oropharyngeal dysphagia (Acute) Atelectasis (Acute) External bleeding hemorrhoids (Acute) Palliative care patient (Acute) Elevated troponin (Acute) Tachycardia (Acute) Neurogenic bowel (Acute) Fluid collection at surgical site (Acute) Bursitis of left shoulder (Acute) Rupture of left proximal biceps tendon (Acute) Ulnar neuropathy of left upper extremity (Acute) Carpal tunnel syndrome of left wrist (Acute) Left shoulder pain (Acute) Protein malnutrition (Acute) Generalized weakness (Acute) DNI (do not intubate) (Acute) DNR (do not resuscitate) (Acute) POLST (Physician Orders for Life-Sustaining Treatment) (Acute) COLST completed 10/30/2020 with Jennifer Parish, [employer], DNR/DNI Constipation, chronic (Acute) Ataxia (Acute) Left hand weakness (Acute) Chronic renal insufficiency (Acute) Chronic pain (Chronic) Asymptomatic microscopic hematuria (Acute) Myasthenia gravis (Chronic) GERD (gastroesophageal reflux disease) (Chronic) Intracranial arachnoid cyst (Chronic) COPD (chronic obstructive pulmonary disease) (Chronic) Medical History Anxiety Arachnoid cyst Blood loss anemia Blurred vision Bunion of unspecified foot Dental caries Depression Former smoker Frequent falls Gastric ulcer History of gluten intolerance History of lacunar cerebrovascular accident Hyperlipidemia Hypertension Hypokalemia Insomnia previous misuse of Ambien Left arm weakness Migraine headache without aura Neurogenic bladder Neuropathic pain of both legs Pain Peripheral neuropathy Prediabetes Spasticity Spinal stenosis Syrinx of spinal cord Starting at C3 and extending to T11 Urinary frequency Urinary retention Weakness Surgical History H/O craniotomy ; L cerebellar arachnoid cyst drain with shunt placement H/O esophagogastroduodenoscopy (~07/2021) 09/2021 H/O thymectomy 1980s S/P appendectomy S/P cystourethroscopy with dilation of urethral stricture S/P tonsillectomy Family History Mother Diabetes Father Neuropathy Back problem Brother Myasthenia gravis Social History Smoking/Tobacco Use Status: Former Tobacco Use Quit Date: 08/15/16 Smoking risk assessment performed?: Yes Alcohol Intake: former Drug use: Never Substance use type: does not use Household members: other Housing: [facility] Number of Children: 0 Pets and animals: No Current gender identity: female What type of physical activity do you participate in: none Seatbelt use: always Do you feel safe at home: Yes (Pt lives alone) Do you feel safe in your relationship?: No Exam Const General: cooperative, healthy appearing, comfortable, no acute distress, well developed and well groomed Nutritional Appearance: average body habitus and well nourished Orientation: alert, awake and oriented x3 HENMT Head: normal to inspection, no palpable skull fracture, normocephalic and atraumatic Ears: hearing grossly normal bilaterally, external ears normal and TM's normal bilaterally General nose exam: external nose not normal (swelling/ecchymosis to bridge of nose, no palpable deformity), nares abnormal (dried blood in right nares), no nasal polyps, septum normal, no nasal discharge and no epistaxis (dried) Face and sinus: sinuses nontender, face symmetric, no abrasions, no crepitus, no erythema, no edema, no fluctuance, no lacerations, no maxillary instability, no sinus tenderness and tenderness (to the nose as above) Mouth: oral mucosae normal, lip normal, tongue normal and moist mucous membranes Teeth and gingiva: dentition normal and gingiva normal Throat: posterior oropharynx normal, tonsils normal and uvula midline Eyes General: appearance normal, both eyes and all related structures Visual Motta: normal visual motta by confrontation Alignment and Position: alignment normal Periorbital: periorbital findings normal Eyelids: eyelids normal Conjunctivae: conjunctivae normal Pupils: PERRL EOM: EOM intact bilaterally Neck Neck: normal visual inspection, full ROM, no lymphadenopathy, trachea midline and supple Chest Chest: normal inspection of the chest, normal palpation of entire chest wall, no crepitus and no localized rib tenderness Resp Effort & Inspection: normal respiratory effort, able to speak in complete sentences and no respiratory distress Auscultation: clear to auscultation bilaterally, no rales, no rhonchi and no wheezes Cardio Rate: regular rate Rhythm: regular rhythm Heart Sounds: S1 normal and S2 normal Back/Spine/Pelvis Cervical Spine: normal cervical lordosis and cervical ROM normal Thoracic/Lumbar Spine: thoracic and lumbar spine normal to inspection, thoraco-lumbar ROM normal, No thoraco-lumbar ROM limited, No thoraco-lumbar spasm and No thoracic spinal tenderness Pelvis: no pain with anterior-posterior compression and no pain with lateral compression Skin General skin exam: no rashes or lesions noted Lesions: no lesions Rashes: no rashes Trauma: no lacerations or abrasions Wounds: no wounds Neuro General: patient alert, patient awake, patient oriented x3, gait abnormal, tone normal and moves all extremities Cranial Nerves: CN's II-XI intact bilaterally Cognition: normal cognition Speech: speech normal Gait: gait abnormal (wheelchair bound at baseline) Motor: muscle tone normal throughout and strength 5/5 throughout Sensory Exam: no sensory deficits noted (no saddle paresthesias) Extrem General: normal to inspection, full ROM, capillary refill normal, no pedal edema and no calf tenderness Psych Appearance: grossly normal and well kempt Mental Status: mental status grossly normal Speech and Movement: speech and movement normal Course Vital Signs Vital signs: Vital Signs Temperature 34.9 C L 06/07/22 11:56 Pulse 90 06/07/22 11:56 Respiratory Rate 16 06/07/22 11:56 Blood Pressure 163/109 H 06/07/22 11:56 Pulse Oximetry 90 L 06/07/22 11:56 Temperature 34.9 C L 06/07/22 11:56 Temperature Source Temporal Artery Scan 06/07/22 11:56 Pulse 90 06/07/22 11:56 Respiratory Rate 16 06/07/22 11:56 Respiratory Effort Non-Labored 06/07/22 12:00 Blood Pressure 163/109 H 06/07/22 11:56 Blood Pressure Position Sitting 06/07/22 11:56 Pulse Oximetry 90 L 06/07/22 11:56 Oxygen Delivery Method Room Air 06/07/22 11:56 Oxygen Flow Rate 0 06/07/22 11:56 Pain Level 4 06/07/22 11:56 Comment 06/07/22 11:56
--- NOTE | 2022-06-07 14:15 | DI.CT_ITS ---
Exam(s) CT HEAD FACIAL WO EXAM: CT HEAD FACIAL WO CLINICAL HISTORY: fall from wheelchair, nasal trauma. TECHNIQUE: Imaging Protocol: Axial computed tomography images with coronal and sagittal reformatted images were created and reviewed COMPARISON: CT CT HEAD WO from 07/12/2021 FINDINGS: CT Head: Ventricles and Extra axial spaces: Normal in size and morphology for the patient's age. Hemorrhage: None. Cerebral parenchyma: Normal no significant atrophy. Mild white matter changes of small vessel diseas e. Brainstem/Cerebellum: Stable appearance of cystic area in the left cerebellar hemisphere with shunt i n place, unchanged in position. Chronic deformity and volume loss of the left cerebellar hemisphere. Calvarium: Stable chronic deformity with asymmetry in size of the right and left posterior fossa. No acute fracture. Visualized Paranasal sinuses/Mastoids: Clear. Soft Tissues: Unremarkable. CT Face: Facial Bones: Minimally displaced nasal fractures. No additional facial fractures. Sinuses and Mastoids: Unremarkable. Globes, extraocular muscles, optic nerves and retrobulbar fat: Normal. Upper aerodigestive tract: Normal. Mandible and bilateral temporomandibular joints: Normal. Soft tissues: Normal. IMPRESSION: 1. No acute intracranial process.Stable appearance cystic area left posterior fossa and asymmetry of cerebellar hemispheres. 2. Minimally displaced nasal fractures. RADIATION DOSE DELIVERED: 1,508.31mGy.cm Total DLP DATA REPOSITORY: All CT scans at this facility are submitted to the National Radiology Data Registry (NRDR) Dose Index Registry (DIR) with the [employer] ([employer]). RADIATION OPTIMIZATION: All CT scans at this facility use at least one of these dose optimization te chniques: automated exposure control; mA and/or kV adjustment per patient size (includes targeted exa ms where dose is matched to clinical indication); or iterative reconstruction.
== END 2022-06-07 16:29 | disposition home or self-care (01) ==
PROVIDERS: Emergency Provider Physician Assistant
DX: S02.2XXA Fracture of nasal bones, initial encounter for closed fracture (principal); S09.8XXA Other specified injuries of head, initial encounter; W07.XXXA Fall from chair, initial encounter
CPT/HCPCS: 99284; 70450; 70486; 99283

== ENCOUNTER 2022-07-05 14:37 | Emergency (ER) | payer OTHER, SELFPAY ==
[2022-07-05 14:37] VITALS: BP 177/112; PULSE 99; RESP 20; TEMP 36.7; O2SAT 95
--- NOTE | 2022-07-05 14:58 | ED.GENADUL_ITS ---
Discharge Plan Disposition Patient Disposition: Home Condition: Stable Discharge Details Clinical Impression: Cellulitis of left forearm Primary Care Provider: Unknown,Unknown ED Provider: Margarita Rizoz Home Meds and New Rx's Prescriptions: New clindamycin HCl 150 mg capsule 450 mg PO TID 7 Days Qty: 63 0RF Continued sennosides 8.6 mg tablet 8.6 mg PO BID PRN Label Comments: Pt reports not taking for @ 1 month zolpidem [Ambien] 5 mg tablet 5 mg PO QHS PRN (Reason: insomnia) Rx Instructions: 1-2 tabs gabapentin 300 mg capsule 1,500 mg PO DIRECTED Rx Instructions: 2 capsules PO QAM, 1 capsule PO midday, 2 capsules QHS. No abrupt cessation. lisinopril 5 mg tablet 10 mg PO DAILY acetaminophen 500 mg tablet 1,000 mg PO TID PRN PRN (Reason: pain) Qty: 90 0RF ondansetron 4 mg tablet,disintegrating 4 mg PO Q8H PRN (Reason: nausea and vomiting) Qty: 30 3RF fentanyl 75 mcg/hr patch 72 hour 1 patch transdermal Q72H furosemide 20 mg tablet 20 mg PO DAILY Qty: 30 0RF cyclobenzaprine 10 mg tablet See Rx Instructions PO .COMPLEX Qty: 270 3RF Rx Instructions: orally 20mg HS with an additional 10mg once daily prn neck spasms; lidocaine 5 % adhesive patch,medicated See Rx Instructions .ROUTE .COMPLEX Qty: 30 5RF Dose Instruction: APPLY ONE PATCH TOPICALLY TO THE SKIN DIRECTED, 12 HOURS ON AND THEN 12 HOURS OFF Rx Instructions: APPLY ONE PATCH TOPICALLY TO THE SKIN DIRECTED, 12 HOURS ON AND THEN 12 HOURS OFF acetylcysteine 600 mg capsule 1,200 mg PO BID Qty: 120 3RF pyridostigmine bromide 180 mg tablet extended release See Rx Instructions .ROUTE .COMPLEX Qty: 90 3RF Dose Instruction: TAKE ONE TABLET BY MOUTH EVERY DAY Rx Instructions: TAKE ONE TABLET BY MOUTH EVERY DAY pantoprazole 40 mg Tablet,Delayed Release (Dr/Ec) See Rx Instructions .ROUTE .COMPLEX Qty: 42 0RF Rx Instructions: 40 mg orally bid x 2 wks, then daily folic acid 1 mg Tablet 1 mg PO DAILY AM Qty: 30 0RF Discharge Instructions Instructions: Cellulitis (ED) Additional Instructions: Your blood tests and imaging today are reassuring and show no evidence of acute concerning findings. It is suspected that you have a superficial skin infection called cellulitis of your left forearm. You are being sent home with the antibiotic Clindamycin to take as directed until finished and then start taking your the prescription for Clindamycin which was sent electronically to [facility] in [facility]. You have been placed on care management's list to arrange for a follow-up appointment with your primary care doctor within the next 2 days for reevaluat ion. Return immediately to the emergency department if you develop any worsening or new concerning symptoms such as fever, chills, worsening redness, swelling or pain. 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 Patient has an approximate 12 x 5 cm area of erythema, mild tenderness and induration noted on left dorsal forearm. Circumference of left proximal forearm around largest area is 25 cm in comparison to similar location on right forearm which is 21 cm. There is no evidence of abscess. Presentation does appear consistent likely with cellulitis. She has a healed crust on her proximal dorsal medial forearm but there is no surrounding cellulitis or signs of lymphangitis extending from this crust so unclear if this is the source. She does admit to a recent fall a few weeks ago but unsure if she fell on her left forearm and denies any pain or injury at that time. Patient is wheelchair-bound so consider DVT. Will obtain screening labs, left upper extremity ultrasound, left forearm x-ray and give a dose of Tylenol and IV fluids. Labs and imaging reviewed. Normal white blood cell count. ESR and CRP minimally elevated. Ultrasound negative for DVT. X-ray notes swelling but no evidence of foreign body or fracture. Patient reassessed and she would like to go home. She uses a fentanyl patch at home which she states is due to be changed today and she declines any additional pain medication. Skin markings patient around edge of cellulitis. There is no worsening of cellulitis since arrival. She appears comfortable and nontoxic. There are currently no beds available in the hospital due to staffing issues. Patient states she would like to go home. Disposition decision made weighing the risks and benefits of hospitalization versus outpatient treatment, the risk for further decompensation, and the patient's wishes. She was given clindamycin to go and a prescription sent electronically to [facility]. She was placed on care management list to help arrange for a follow-up appointment with her primary care doctor within the next 1 to 2 days for reevaluation of her cellulitis. Usual and customary return precautions given prior to discharge. Medical Records Medical records reviewed: Yes I reviewed the patient's medical records. Imaging Data Radiologic Study: Radiologist's impression: US UPPER EXTREMITY VENOUS LT CLINICAL HISTORY: ? L forearm redness, swelling, pain, r/o dvt.? TECHNIQUE:? Ultrasound examination of the left upper extremity venous system(s) is performed using grayscale, color-flow, and spectral Doppler analysis. COMPARISON:? No exams were available for comparison FINDINGS: The left internal jugular, axillary, subclavian, cephalic, basilic, brachial, radial, and ulnar veins are patent without evidence of thrombosis. IMPRESSION: No DVT. XR FOREARM LT CLINICAL HISTORY: ? left forearm redness, swelling, r/o fb/fx.? TECHNIQUE:? 2D digital imaging was performed.? Two views. COMPARISON:? No exams were available for comparison FINDINGS: BONES: No acute fracture is present. No bony destructive lesion is seen. Visualized portion of elbow and wrist joints are unremarkable. SOFT TISSUE: Posterior swelling.? No foreign body. IMPRESSION: Swelling. Lab Data Lab results reviewed: Yes I reviewed the patient's lab results. Labs: Laboratory Tests Range/Units 07/05/22 07/05/22 07/05/22 10:46 10:46 10:46 WBC (4.4-10.8) 10^3/uL 9.12 RBC (3.93-5.22) 10^6/uL 4.66 Hgb (11.2-15.7) g/dL 13.7 Hct (36.0-46.0) % 42.0 MCV (80-95) fL 90 MCH (27.0-33.0) pg 29.4 MCHC (32.0-36.0) % 32.6 RDW (11.7-14.6) % 12.2 Plt Count (130-400) 10^3/uL 324 MPV (8.0-11.0) fL 9.7 Immature Gran % 0.3 Neutrophils % 85.2 Lymphocytes % 8.0 Monocytes % 6.0 Eosinophils % 0.1 Basophils % 0.4 Nucleated RBC % (0.0-0.3) % 0.0 Absolute Neutrophils (1.2-6.7) 10^3/uL 7.76 H Absolute Lymphocytes (1.2-3.4) 10^3/uL 0.73 L Absolute Monocytes (0.1-0.8) 10^3/uL 0.55 Absolute Eosinophils (0.0-0.7) 10^3/uL 0.01 Absolute Basophils (0.0-0.2) 10^3/uL 0.04 ESR (0-30) mm/hr 50 H Sodium (136-145) mmol/L 132 L Potassium (3.5-5.1) mmol/L 4.2 Chloride (98-107) mmol/L 93 L Carbon Dioxide (21.0-32.0) mmol/L 32.8 H Anion Gap (3-11) mmol/L 6.2 BUN (7-18) mg/dL 23 H Creatinine (0.55-1.02) mg/dL 1.2 H Est GFR (CKD-EPI 2020) (mL/min/1.73m2) 49.61 Glucose (74-106) mg/dL 114 H Calcium (8.5-10.1) mg/dL 10.1 Total Bilirubin (0.2-1.0) mg/dL 0.6 AST (15-37) U/L 24 ALT (14-59) U/L 16 Alkaline Phosphatase (46-116) U/L 164 H C-Reactive Protein (0.0-0.3) mg/dL 4.77 H Total Protein (6.4-8.2) g/dL 8.9 H Albumin (3.4-5.0) g/dL 3.9 Sign Out No HPI General Mode of arrival: EMS . Date/Time Provider Initiated Documentation: 07/05/22 14:56 . Limitations to Documentation: no limitations . Information obtained by: patient . 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 Patient states she noticed on Tuesday that her left forearm appeared warm and red. She states she has some mild pain. She denies any known injury, insect bite or animal scratch. She states she has no pets at home. She states she did have a fall a few weeks ago and may have fallen on the left arm but she is unsure and denies any pain in this forearm until she noticed the redness a few days ago. She denies any fever, chills, body aches. Related Data Home Medications Medication Instructions Recorded Confirmed acetaminophen 500 mg tablet 1,000 mg PO TID PRN PRN pain #90 03/13/21 07/05/22 tabs sennosides 8.6 mg tablet 8.6 mg PO BID PRN 04/16/21 07/05/22 zolpidem 5 mg tablet (Ambien) 5 mg PO QHS PRN insomnia 04/16/21 07/05/22 ondansetron 4 mg disintegrating 4 mg PO Q8H PRN nausea and 07/03/21 07/05/22 tablet vomiting #30 tabs folic acid 1 mg tablet 1 mg PO DAILY AM #30 tabs 07/14/21 07/05/22 pantoprazole 40 mg tablet,delayed See Rx Instructions .Route 07/14/21 07/05/22 release .COMPLEX #42 tabs gabapentin 300 mg capsule 1,500 mg PO DIRECTED 12/22/21 07/05/22 cyclobenzaprine 10 mg tablet See Rx Instructions PO .COMPLEX 01/04/22 07/05/22 #270 tabs fentanyl 75 mcg/hr transdermal 1 patch transdermal Q72H 01/28/22 07/05/22 patch lisinopril 5 mg tablet 10 mg PO DAILY 02/03/22 07/05/22 furosemide 20 mg tablet 20 mg PO DAILY #30 tabs 03/18/22 07/05/22 lidocaine 5 % topical patch See Rx Instructions .Route 05/10/22 07/05/22 .COMPLEX #30 patches acetylcysteine 600 mg capsule 1,200 mg PO BID #120 caps 05/31/22 06/09/22 pyridostigmine bromide 180 mg See Rx Instructions .Route 06/03/22 07/05/22 tablet,extended release .COMPLEX #90 tabs clindamycin HCl 150 mg capsule 450 mg PO TID 7 days #63 caps 07/05/22 Previous Rx's Medication Instructions Recorded acetaminophen 500 mg tablet 1,000 mg PO TID PRN PRN pain #90 03/13/21 tabs ondansetron 4 mg disintegrating 4 mg PO Q8H PRN nausea and 07/03/21 tablet vomiting #30 tabs folic acid 1 mg tablet 1 mg PO DAILY AM #30 tabs 07/14/21 pantoprazole 40 mg tablet,delayed See Rx Instructions .Route 07/14/21 release .COMPLEX #42 tabs cyclobenzaprine 10 mg tablet See Rx Instructions PO .COMPLEX 01/04/22 #270 tabs furosemide 20 mg tablet 20 mg PO DAILY #30 tabs 03/18/22 lidocaine 5 % topical patch See Rx Instructions .Route 05/10/22 .COMPLEX #30 patches acetylcysteine 600 mg capsule 1,200 mg PO BID #120 caps 05/31/22 pyridostigmine bromide 180 mg See Rx Instructions .Route 06/03/22 tablet,extended release .COMPLEX #90 tabs clindamycin HCl 150 mg capsule 450 mg PO TID 7 days #63 caps 07/05/22 Allergies Allergy/AdvReac Type Severity Reaction Status Date / Time codeine Allergy Severe pt unsure Verified 07/05/22 14:43 of reaction iodine Allergy Severe pt unsure Verified 07/05/22 14:43 of reaction Penicillins Allergy Severe Anaphylaxsi Verified 07/05/22 14:43 s Sulfa (Sulfonamide Allergy Severe Swelling/Ed Verified 07/05/22 14:43 Antibiotics) kendal trazodone AdvReac Intermediate PER PT Verified 07/05/22 14:43 MAKES HER HEART RACE. General Stated Complaint: Cellulitis ZEV: 3 Review of Systems All systems reviewed & are unremarkable except as noted in HPI and below Constitutional Constitutional: Reports as per HPI, Denies chills and Denies fever(s) Eyes Eyes: Denies blurry vision ENT Ears, Nose, Mouth, and Throat: Denies dizziness, Denies sore throat and Denies throat swelling Cardiovascular Cardiovascular: Denies chest pain and Denies dyspnea Respiratory Respiratory: Denies cough and Denies dyspnea Gastrointestinal Gastrointestinal: Denies abdominal pain, Denies diarrhea and Denies vomiting Genitourinary Genitourinary: Denies hematuria and Denies dysuria Musculoskeletal Musculoskeletal: Denies back pain and Denies numbness Integumentary/Breasts Skin/Breast: Denies lesions and Denies rash Comments: Left forearm warmth, redness, swelling and pain Neurologic Neurologic: Denies dizziness, Denies localized weakness and Denies numbness Allergic/Immunologic Allergic/Immunologic: Denies throat swelling PFSH All Active Problems (Updated 07/05/22 @ 17:51 by Margarita Rizzo DO) Closed fracture nasal bone (Acute) Head injury (Acute) Cellulitis of left forearm (Acute) Palliative care patient (Acute) Fluid collection at surgical site (Acute) Oropharyngeal dysphagia (Acute) Atelectasis (Acute) External bleeding hemorrhoids (Acute) Palliative care patient (Acute) Elevated troponin (Acute) Tachycardia (Acute) Neurogenic bowel (Acute) Fluid collection at surgical site (Acute) Bursitis of left shoulder (Acute) Rupture of left proximal biceps tendon (Acute) Ulnar neuropathy of left upper extremity (Acute) Carpal tunnel syndrome of left wrist (Acute) Left shoulder pain (Acute) Protein malnutrition (Acute) Generalized weakness (Acute) DNI (do not intubate) (Acute) DNR (do not resuscitate) (Acute) POLST (Physician Orders for Life-Sustaining Treatment) (Acute) COLST completed 10/30/2020 with MAUREEN Marley, DNR/DNI Constipation, chronic (Acute) Ataxia (Acute) Left hand weakness (Acute) Chronic renal insufficiency (Acute) Chronic pain (Chronic) Asymptomatic microscopic hematuria (Acute) Myasthenia gravis (Chronic) GERD (gastroesophageal reflux disease) (Chronic) Intracranial arachnoid cyst (Chronic) COPD (chronic obstructive pulmonary disease) (Chronic) Medical History Anxiety Arachnoid cyst Blood loss anemia Blurred vision Bunion of unspecified foot Dental caries Depression Former smoker Frequent falls Gastric ulcer History of gluten intolerance History of lacunar cerebrovascular accident Hyperlipidemia Hypertension Hypokalemia Insomnia previous misuse of Ambien Left arm weakness Migraine headache without aura Neurogenic bladder Neuropathic pain of both legs Pain Peripheral neuropathy Prediabetes Spasticity Spinal stenosis Syrinx of spinal cord Starting at C3 and extending to T11 Urinary frequency Urinary retention Weakness Surgical History H/O craniotomy ; L cerebellar arachnoid cyst drain with shunt placement H/O esophagogastroduodenoscopy (~07/2021) 09/2021 H/O thymectomy 1980s S/P appendectomy S/P cystourethroscopy with dilation of urethral stricture S/P tonsillectomy Family History Mother Diabetes Father Neuropathy Back problem Brother Myasthenia gravis Social History Smoking/Tobacco Use Status: Former Tobacco Use Quit Date: 08/15/16 Smoking risk assessment performed?: Yes Alcohol Intake: former Drug use: Never Substance use type: does not use Household members: other Housing: senior care Number of Children: 0 Pets and animals: No Current gender identity: female What type of physical activity do you participate in: none Seatbelt use: always Do you feel safe at home: Yes (Pt lives alone) Do you feel safe in your relationship?: No Exam Const General: cooperative and no acute distress Orientation: alert, awake and oriented x3 HENMT Head: normal to inspection Face and sinus: normal facial exam Eyes General: appearance normal, both eyes and all related structures Pupils: PERRL EOM: EOM intact bilaterally Neck Neck: normal visual inspection and No submandibular swelling Lymphatic: no lymphadenopathy noted Chest Chest: normal inspection of the chest and no tenderness Resp Effort & Inspection: normal respiratory effort and able to speak in complete sentences Auscultation: clear to auscultation bilaterally Cardio Rate: regular rate Rhythm: regular rhythm GI Inspection: normal to inspection Palpation: soft, not firm, not rigid and nontender Auscultation: normal bowel sounds Back/Spine/Pelvis Thoracic/Lumbar Spine: thoracic and lumbar spine normal to inspection Pelvis: no pain with anterior-posterior compression Skin General skin exam: no rashes or lesions noted Neuro General: patient alert, patient awake and patient oriented x3 Cognition: normal cognition Speech: speech normal Motor: muscle tone normal throughout Sensory Exam: no sensory deficits noted Extrem General: capillary refill normal Elbow/forearm/wrist images: 1. Erythema and mild tenderness and induration noted to dorsal aspect of left forearm, approximately 12 x 6 cm, hot to touch. No crepitus noted. No no fluctuance or drainage. 2. Approximate 1 x 1 cm dried crust on the posterior aspect of proximal left forearm. No surrounding fluctuance, erythema, drainage or significant tenderness to palpation. Other: Left upper extremity: Circumference of proximal left forearm 25 cm. Left radial and ulnar pulses intact. Right upper extremity: Circumference of proximal right forearm 21cm. Psych Appearance: grossly normal Mental Status: mental status grossly normal Speech and Movement: speech and movement normal Affect: normal affect Course Vital Signs Vital signs: Vital Signs Temperature 98.1 F 07/05/22 14:37 Pulse 99 H 07/05/22 14:37 Respiratory Rate 20 07/05/22 14:37 Blood Pressure 177/112 H 07/05/22 14:37 Pulse Oximetry 95 07/05/22 14:37 Temperature 98.1 F 07/05/22 14:37 Temperature Source Skin 07/05/22 14:37 Pulse 99 H 07/05/22 14:37 Respiratory Rate 20 07/05/22 14:37 Respiratory Effort Non-Labored 07/05/22 14:47 Blood Pressure 177/112 H 07/05/22 14:37 Blood Pressure Position Sitting 07/05/22 14:37 Pulse Oximetry 95 07/05/22 14:37 Oxygen Delivery Method Room Air 07/05/22 14:37 Oxygen Flow Rate 0 07/05/22 14:37 Pain Level 6 07/05/22 14:37
--- NOTE | 2022-07-05 15:00 | DI.RAD_ITS ---
Exam(s) XR FOREARM LT EXAM: XR FOREARM LT CLINICAL HISTORY: left forearm redness, swelling, r/o fb/fx. TECHNIQUE: 2D digital imaging was performed. Two views. COMPARISON: No exams were available for comparison FINDINGS: BONES: No acute fracture is present. No bony destructive lesion is seen. Visualized portion of elbow and wrist joints are unremarkable. SOFT TISSUE: Posterior swelling. No foreign body. IMPRESSION: Swelling. DATA REPOSITORY: RADIATION DOSE DELIVERED:
--- NOTE | 2022-07-05 15:00 | DI.US_ITS ---
Exam(s) US UPPER EXTREMITY VENOUS LT EXAM: US UPPER EXTREMITY VENOUS LT CLINICAL HISTORY: L forearm redness, swelling, pain, r/o dvt. TECHNIQUE: Ultrasound examination of the left upper extremity venous system(s) is performed using gr ayscale, color-flow, and spectral Doppler analysis. COMPARISON: No exams were available for comparison FINDINGS: The left internal jugular, axillary, subclavian, cephalic, basilic, brachial, radial, and ulnar veins are patent without evidence of thrombosis. IMPRESSION: No DVT. DATA REPOSITORY:
[2022-07-05] MEDS: Normal Saline 500 ML IV (15:20)
[2022-07-05] MEDS: Lisinopril 10 MG TAB PO (15:25)
[2022-07-05] MEDS: ACETAMINOPHEN 1,000 MG/100 ML BTL 400 MG IVPB (15:26)
[2022-07-05 15:27] VITALS: BP 171/98; PULSE 99
[2022-07-05 15:31] VITALS: BP 169/107; PULSE 87
[2022-07-05 15:31] LABS: ESR 50 mm/hr (0-30)
[2022-07-05 15:33] LABS: Abs Immature Grans 0.03 10^3/uL (0.0-0.06); Absolute Basophil Count 0.04 10^3/uL (0.0-0.2); Absolute Eosinophil Count 0.01 10^3/uL (0.0-0.7); Absolute Lymphocyte Count 0.73 10^3/uL (1.2-3.4); Absolute Monocyte Count 0.55 10^3/uL (0.1-0.8); Absolute Neutrophil Count 7.76 10^3/uL (1.2-6.7); Basophils % 0.4; Eosinophils % 0.1; HGB 13.7 g/dL (11.2-15.7); Immature Grans % 0.3; MCH 29.4 pg (27.0-33.0); MCHC 32.6 % (32.0-36.0); MCV 90 fL (80-95); MPV 9.7 fL (8.0-11.0); Neutrophils % 85.2; Platelet Count 324 10^3/uL (130-400); RBC 4.66 10^6/uL (3.93-5.22); RDW 12.2 % (11.7-14.6); RDW-SD 40.1 fL; WBC 9.12 10^3/uL (4.4-10.8)
[2022-07-05 15:46] LABS: ALT 16 U/L (14-59); AST 24 U/L (15-37); Albumin 3.9 g/dL (3.4-5.0); Alkaline Phosphatase 164 U/L (46-116); Anion Gap 6.2 mmol/L (3-11); BUN 23 mg/dL (7-18); Bilirubin, Total 0.6 mg/dL (0.2-1.0); C-Reactive Protein 4.77 mg/dL (0.0-0.3); CO2 32.8 mmol/L (21.0-32.0); CREATININE 1.2 mg/dL (0.55-1.02); Calcium 10.1 mg/dL (8.5-10.1); Chloride 93 mmol/L (98-107); Estimated GFR 49.61 (mL/min/1.73m2); Glucose 114 mg/dL (74-106); Potassium 4.2 mmol/L (3.5-5.1); Sodium 132 mmol/L (136-145); Total Protein 8.9 g/dL (6.4-8.2)
[2022-07-05] MEDS: CLINDAMYCIN 600 MG/50 ML BAG 100 MG IVPB (17:00)
[2022-07-05 17:03] VITALS: BP 156/95; PULSE 90
--- NOTE | 2022-07-05 18:10 | NUR.NOTE ---
Nursing Note: Referral faxed to PCP for left forearm cellulitis by this Wed. Pt was sent to ED by Prashanth Thayer.
== END 2022-07-05 18:19 | disposition home or self-care (01) ==
PROVIDERS: Emergency Provider Physician Assistant
DX: L03.114 Cellulitis of left upper limb (principal); J44.9 Chronic obstructive pulmonary disease, unspecified; I10 Essential (primary) hypertension; E78.5 Hyperlipidemia, unspecified
CPT/HCPCS: 36415; 80053; 85652; 96361; 96365; 96375; 99284; 73090; 85025; 86140; 93971; J0131

== ENCOUNTER 2022-09-09 12:37 | Outpatient (REF) | payer OTHER, SELFPAY ==
[2022-09-09 13:40] LABS: Bilirubin Negative (Negative); Blood Negative (Negative); Clarity Sl Cloudy (Clear); Glucose Negative (Negative); Ketones Negative (Negative); Leukocyte Esterase Large (Negative); Nitrite Positive (Negative); Urobilinogen 0.2 EU/dL (Up TO 0.2); pH 7.5 (5-8)
[2022-09-09 13:56] LABS: Bacteria Moderate HPF (Negative); C & S Indicated? Yes; Casts Negative LPF (Negative); Crystals Negative HPF (Negative); Epithelial Cells Few HPF (Negative); Mucus Negative (Negative); RBC Negative HPF (0-2); WBC 20-50 HPF (0-5)
== END 2022-09-09 12:38 | disposition home or self-care (01) ==
LOC: LBN 12:37
PROVIDERS: PCP Nurse Practitioner Family; Visit Provider Nurse Practitioner Family
DX: R82.90 Unspecified abnormal findings in urine (principal); N39.0 Urinary tract infection, site not specified
CPT/HCPCS: 87077; 81003; 81015; 87086; 87186

== ENCOUNTER 2022-09-25 15:56 | Inpatient (IN) | payer OTHER, SELFPAY ==
[2022-09-25] VITALS (44 sets, daily range): BP systolic 148–195; BP diastolic 81–138; PULSE 85–111; RESP 16–18; TEMP 37; O2SAT 93–97
--- NOTE | 2022-09-25 15:55 | W.ED.GENAD ---
Discharge Plan Disposition Patient Disposition: Admit to [facility] Condition: Stable Discharge Details Chief Complaint: Orthopedic Clinical Impression: Closed left femoral fracture Primary Care Provider: Prashanth Jiang ED Provider: Kristopher Giraldo Guttenberg Meds and New Rx's Prescriptions: No Action sennosides 8.6 mg tablet 8.6 mg PO BID PRN Patient Comments: Pt reports not taking for @ 1 month lisinopril 5 mg tablet 20 mg PO DAILY ibrexafungerp 150 mg tablet See Rx Instructions PO PER PKG DIR Qty: 4 0RF Rx Instructions: PO PER PKG DIR. Cannot take fluconazole d/t interaction with Fentanyl levofloxacin 750 mg tablet 750 mg PO DAILY 7 Days Qty: 7 0RF acetaminophen 500 mg tablet 1,000 mg PO TID PRN PRN (Reason: pain) Qty: 90 0RF ondansetron 4 mg tablet,disintegrating 4 mg PO Q8H PRN (Reason: nausea and vomiting) Qty: 30 3RF Rx Instructions: doesn't take furosemide 20 mg tablet 20 mg PO DAILY Qty: 30 0RF cyclobenzaprine 10 mg tablet See Rx Instructions PO .COMPLEX Qty: 270 3RF Rx Instructions: orally 20mg HS with an additional 10mg once daily prn neck spasms; lidocaine 5 % adhesive patch,medicated See Rx Instructions .ROUTE .COMPLEX Qty: 30 5RF Dose Instruction: APPLY ONE PATCH TOPICALLY TO THE SKIN DIRECTED, 12 HOURS ON AND THEN 12 HOURS OFF Rx Instructions: APPLY ONE PATCH TOPICALLY TO THE SKIN DIRECTED, 12 HOURS ON AND THEN 12 HOURS OFF acetylcysteine 600 mg capsule 1,200 mg PO BID Qty: 120 3RF pyridostigmine bromide 180 mg tablet extended release See Rx Instructions .ROUTE .COMPLEX Qty: 90 3RF Dose Instruction: TAKE ONE TABLET BY MOUTH EVERY DAY Rx Instructions: TAKE ONE TABLET BY MOUTH EVERY DAY Phlexy-Vits 15 mg- 700 mcg powder in packet PO TID Rx Instructions: doesn't take polyethylene glycol 3350 17 gram powder in packet 17 g PO DAILY ciclopirox 8 % solution 1 applic topical DAILY amlodipine 2.5 mg tablet 2.5 mg PO DAILY tizanidine 2 mg tablet 2 mg PO QHS PRN gabapentin 300 mg capsule See Rx Instructions .ROUTE .COMPLEX Qty: 450 3RF Dose Instruction: TAKE 2 CAPSULES BY MOUTH IN THE MORNING, 1 CAPSULE MIDDAY AND 2 CAPSULES AT BEDTIME. NO ABRUPT CESSATION Rx Instructions: Takes 200mg mid-day and 300mg at night NO ABRUPT CESSATION fentanyl 75 mcg/hr patch 72 hour 1 patch transdermal Q72H MDD 180 mme Qty: 10 0RF zolpidem [Ambien] 5 mg tablet 5 mg PO QHS PRN (Reason: insomnia) Qty: 30 5RF Rx Instructions: 1-2 tabs pantoprazole 40 mg Tablet,Delayed Release (Dr/Ec) See Rx Instructions .ROUTE .COMPLEX Qty: 42 0RF Rx Instructions: 40 mg orally bid x 2 wks, then daily folic acid 1 mg Tablet 1 mg PO DAILY AM Qty: 30 0RF Medical Decision Making <Jose Roberto Brooks MD - Last Filed: 09/25/22 17:46> Patient presenting with left knee injury after a fall this morning. She is transferring from bed to wheelchair and fell. She had no upper body injury and denies striking her head. Knee has become more swollen and painful over the course of today and friend convinced her to come to the ED for evaluation. She is neurovascular intact distally. Will obtain x-ray of the left knee. X-ray reveals distal comminuted fracture of the femur. Discussed with orthopedics, Dr. Up. Will obtain CT scan mid thigh to proximal tibia for better visualization of fracture. IV placed and will order as needed morphine for pain. CBC and CMP sent. Imaging Data Radiologic Study: Attestation: I personally reviewed and interpreted this imaging study as follows: Imaging: X-Ray My impression: Left knee x-ray with comminuted distal femur fracture which is intra-articular Lab Data Lab results reviewed: Yes I reviewed the patient's lab results. ECG Data Attestation: I personally reviewed and interpreted this ECG (s) as follows: <Kristopher Giraldo MD - Last Filed: 09/25/22 22:08> Patient presenting with left knee injury after a fall this morning. She is transferring from bed to wheelchair and fell. She had no upper body injury and denies striking her head. Knee has become more swollen and painful over the course of today and friend convinced her to come to the ED for evaluation. She is neurovascular intact distally. Will obtain x-ray of the left knee. X-ray reveals distal comminuted fracture of the femur. Discussed with orthopedics, Dr. Up. Will obtain CT scan mid thigh to proximal tibia for better visualization of fracture. IV placed and will order as needed morphine for pain. CBC and CMP sent. pt signed out to me pending ortho from [facility] call back. Spoke with Dr. Sandoval from ortho at [facility] and declind transfer at this time due to capacity and is not an emergent surgery. I also consulted with [facility] [place] and they are at capacity and can't accept in transfer. Updated patient and she does not want to be transferred anywhere further away. Will discuss with hospitalist about admission until transfer can be obtained with [facility] or [facility] [place], Dr. Up from ortho updated and will follow as well. HPI <Jose Roberto Brooks MD - Last Filed: 09/25/22 17:46> General Mode of arrival: EMS. Date/Time Provider Initiated Documentation: 09/25/22 16:01. Limitations to Documentation: no limitations. Information obtained by: patient. HPI Narrative: Patient presents to ED with left knee pain and swelling. Patient was transferring from bed to wheelchair this morning. She fell and injured her left knee. She denies any injury to her upper body or head. She denies head pain, neck pain, chest pain, back pain. She did take Tylenol. Her knee has become more swollen and painful. She can no longer pivot and transfer because of pain. Denies any numbness or weakness distally. Denies any hip pain. Friend convinced her to call EMS this afternoon and come in to be evaluated. Related Data Home Medications Medication Instructions Recorded Confirmed acetaminophen 500 mg tablet 1,000 mg PO TID PRN PRN pain #90 03/13/21 09/25/22 tabs sennosides 8.6 mg tablet 8.6 mg PO BID PRN 04/16/21 09/25/22 ondansetron 4 mg disintegrating 4 mg PO Q8H PRN nausea and 07/03/21 07/05/22 tablet vomiting #30 tabs folic acid 1 mg tablet 1 mg PO DAILY AM #30 tabs 07/14/21 09/25/22 pantoprazole 40 mg tablet,delayed See Rx Instructions .Route 07/14/21 09/25/22 release .COMPLEX #42 tabs cyclobenzaprine 10 mg tablet See Rx Instructions PO .COMPLEX 01/04/22 09/25/22 #270 tabs lisinopril 5 mg tablet 20 mg PO DAILY 02/03/22 09/25/22 furosemide 20 mg tablet 20 mg PO DAILY #30 tabs 03/18/22 09/25/22 lidocaine 5 % topical patch See Rx Instructions .Route 05/10/22 09/25/22 .COMPLEX #30 patches acetylcysteine 600 mg capsule 1,200 mg PO BID #120 caps 05/31/22 09/25/22 pyridostigmine bromide 180 mg See Rx Instructions .Route 06/03/22 09/25/22 tablet,extended release .COMPLEX #90 tabs amlodipine 2.5 mg tablet 2.5 mg PO DAILY 07/30/22 09/25/22 ciclopirox 8 % topical solution 1 applic topical DAILY 07/30/22 multivit with mins-ferrous sulf 15 packet PO TID 07/30/22 mg-folic 700 mcg oral powder packet (Phlexy-Vits) polyethylene glycol 3350 17 gram 17 g PO DAILY 07/30/22 09/25/22 oral powder packet tizanidine 2 mg tablet 2 mg PO QHS PRN 07/30/22 09/25/22 gabapentin 300 mg capsule See Rx Instructions .Route 08/17/22 09/25/22 .COMPLEX #450 caps fentanyl 75 mcg/hr transdermal 1 patch transdermal Q72H #10 ea 09/14/22 09/25/22 patch zolpidem 5 mg tablet (Ambien) 5 mg PO QHS PRN insomnia #30 tabs 09/14/22 09/25/22 ibrexafungerp 150 mg tablet See Rx Instructions PO PER PKG DIR 09/24/22 09/25/22 #4 tabs levofloxacin 750 mg tablet 750 mg PO DAILY 7 days #7 tabs 09/25/22 09/25/22 Previous Rx's Medication Instructions Recorded acetaminophen 500 mg tablet 1,000 mg PO TID PRN PRN pain #90 03/13/21 tabs ondansetron 4 mg disintegrating 4 mg PO Q8H PRN nausea and 07/03/21 tablet vomiting #30 tabs folic acid 1 mg tablet 1 mg PO DAILY AM #30 tabs 07/14/21 pantoprazole 40 mg tablet,delayed See Rx Instructions .Route 07/14/21 release .COMPLEX #42 tabs cyclobenzaprine 10 mg tablet See Rx Instructions PO .COMPLEX 01/04/22 #270 tabs furosemide 20 mg tablet 20 mg PO DAILY #30 tabs 03/18/22 lidocaine 5 % topical patch See Rx Instructions .Route 05/10/22 .COMPLEX #30 patches acetylcysteine 600 mg capsule 1,200 mg PO BID #120 caps 05/31/22 pyridostigmine bromide 180 mg See Rx Instructions .Route 06/03/22 tablet,extended release .COMPLEX #90 tabs gabapentin 300 mg capsule See Rx Instructions .Route 08/17/22 .COMPLEX #450 caps fentanyl 75 mcg/hr transdermal 1 patch transdermal Q72H #10 ea 09/14/22 patch zolpidem 5 mg tablet (Ambien) 5 mg PO QHS PRN insomnia #30 tabs 09/14/22 ibrexafungerp 150 mg tablet See Rx Instructions PO PER PKG DIR 09/24/22 #4 tabs levofloxacin 750 mg tablet 750 mg PO DAILY 7 days #7 tabs 09/25/22 Allergies Allergy/AdvReac Type Severity Reaction Status Date / Time codeine Allergy Severe pt unsure Verified 07/05/22 14:43 of reaction iodine Allergy Severe pt unsure Verified 07/05/22 14:43 of reaction Penicillins Allergy Severe Anaphylaxsi Verified 07/05/22 14:43 s Sulfa (Sulfonamide Allergy Severe Swelling/Ed Verified 07/05/22 14:43 Antibiotics) kendal trazodone AdvReac Intermediate PER PT Verified 07/05/22 14:43 MAKES HER HEART RACE. General ZEV: 3 Review of Systems <Jose Roberto Brooks MD - Last Filed: 09/25/22 17:46> Narrative: per HPI PFSH <Jose Roberto Brooks MD - Last Filed: 09/25/22 17:46> All Active Problems (Updated 09/25/22 @ 22:08 by Kristopher Giraldo MD) Closed left femoral fracture (Acute) Weakness (Acute) Urinary retention (Acute) Urinary frequency (Acute) Pain (Acute) Hypokalemia (Acute) Frequent falls (Acute) Dental caries (Acute) Bunion of unspecified foot (Acute) Intracranial arachnoid cyst (Chronic) GERD (gastroesophageal reflux disease) (Chronic) Asymptomatic microscopic hematuria (Acute) Chronic pain (Chronic) Chronic renal insufficiency (Acute) Left hand weakness (Acute) Ataxia (Acute) Constipation, chronic (Acute) POLST (Physician Orders for Life-Sustaining Treatment) (Acute) COLST completed 10/30/2020 with Jennifer Lugo, MAUREEN, DNR/DNI DNR (do not resuscitate) (Acute) DNI (do not intubate) (Acute) Generalized weakness (Acute) Protein malnutrition (Acute) Left shoulder pain (Acute) Carpal tunnel syndrome of left wrist (Acute) Ulnar neuropathy of left upper extremity (Acute) Rupture of left proximal biceps tendon (Acute) Bursitis of left shoulder (Acute) Fluid collection at surgical site (Acute) Neurogenic bowel (Acute) Tachycardia (Acute) Elevated troponin (Acute) Palliative care patient (Acute) External bleeding hemorrhoids (Acute) Atelectasis (Acute) Oropharyngeal dysphagia (Acute) Fluid collection at surgical site (Acute) Palliative care patient (Acute) Urine abnormality (Acute) UTI (urinary tract infection) (Acute) Medical History Anxiety Arachnoid cyst COPD (chronic obstructive pulmonary disease) Depression Former smoker Gastric ulcer History of gluten intolerance History of lacunar cerebrovascular accident Hyperlipidemia Hypertension Insomnia previous misuse of Ambien Left arm weakness Migraine headache without aura Myasthenia gravis Neurogenic bladder Neuropathic pain of both legs Peripheral neuropathy Prediabetes Spasticity Spinal stenosis Syrinx of spinal cord Starting at C3 and extending to T11 Surgical History H/O craniotomy ; L cerebellar arachnoid cyst drain with shunt placement H/O esophagogastroduodenoscopy (~07/2021) 09/2021 H/O thymectomy S/P appendectomy S/P cystourethroscopy with dilation of urethral stricture S/P tonsillectomy Family History (Updated 07/30/22 @ 11:20 by Hannah Mistry) Mother , 90 Diabetes Hypertension Stroke Father , 73 Neuropathy Back problem Depression Heart disease Stroke Brother Myasthenia gravis Depression Maternal Grandfather , 80's Diabetes Paternal Grandfather , 50 Heart disease Maternal Grandmother , 80 No problems noted. Paternal Grandmother , 70 No problems noted. Social History Smoking/Tobacco Use Status: Former Tobacco Use tobacco type: cigarettes Quit Date: 08/15/16 Tobacco: How many years used: 35 Smoking risk assessment performed?: Yes Alcohol Intake: former Drug use: Never Substance use type: does not use Household members: other Housing: skilled nursing Number of Children: 0 Pets and animals: No Current gender identity: female What type of physical activity do you participate in: none Seatbelt use: always Do you feel safe at home: Yes (Pt lives alone) Do you feel safe in your relationship?: Yes Exam <Jose Roberto Brooks MD - Last Filed: 09/25/22 17:46> Narrative Exam Narrative: Const: WDWN elderly female in NAD. HEENT: NC/AT. Normal facial exam. Neck: Supple. Trachea midline. Lungs: Normal respiratory effort. Lungs are clear. No chest wall tenderness. Cor: RRR. Good radial pulses. GI: Soft. NT/ND. Pelvis: Stable Neuro: A+O x 3. Normal speech, mentation. Cranial nerves II - XII grossly intact. No gross motor or sensory deficit. Ext: No C/C/E. Left knee swollen with decreased ROM and pain. Skin: Warm and dry without laceration.
--- NOTE | 2022-09-25 16:00 | DI.RAD_ITS ---
Exam(s) XR KNEE LT 3V AP,LAT,RONDA EXAM: XR KNEE LT 3V AP,LAT,RONDA CLINICAL HISTORY: trauma. TECHNIQUE: 2D digital imaging was performed. COMPARISON: No exams were available for comparison FINDINGS: 3 views Are nondisplaced fracture lines in the distal femur with extension into the knee joint at the interco ndylar notch level. There is a prominent joint effusion-lipohemarthrosis. No evidence of tibial darrius teau fracture. Fibular head and neck are intact. Patella intact. IMPRESSION: Nondisplaced distal femur fracture with intra-articular extension. Lipohemarthrosis evident. DATA REPOSITORY: RADIATION DOSE DELIVERED:
--- NOTE | 2022-09-25 17:29 | DI.VRAD_ITS ---
PROCEDURE INFORMATION: Exam: XR Left Knee Exam date and time: 09/25/2022 5:12 PM Age: 67 years old Clinical indication: Injury or trauma; Fall; Blunt trauma; Knee; Left TECHNIQUE: Imaging protocol: Radiologic exam of the Left knee. Views: 3 views. COMPARISON: US EXTREMITY VENOUS BI 04/05/2022 12:26 PM FINDINGS: Bones/joints: There is a moderate to large joint effusion present. There appears to be a lipohemarthrosis. There is a significant distal femoral metadiaphyseal fracture without significant displacement. There is a vertical component extending into the intercondylar notch. Soft tissues: Normal. IMPRESSION: Significant distal femoral fracture, nondisplaced. Lipohemarthrosis associated. Dictated and Authenticated by: Venita Curry MD. Ordering:NICKIE Cid MD
--- NOTE | 2022-09-25 17:30 | RT.EKG_ITS ---
APPROVED REPORT Exam: Resting ECG Reason for Exam: preop Patient Location: E HR:106 bpm ECG Measurements Heart Rate 106 AXIS DC 135 P 67 QRSd 104 QRS 26 QT 354 T -1 QTc 470 Conclusion Sinus tachycardia...rate> 99 Lateral infarct, age indeterminate...Q>35mS, T neg, V5-V6 I aVL Normal [place] There are no significant changes compared to prior EKG performed on 04/02/2022 at 19:19.
--- NOTE | 2022-09-25 17:30 | DI.CT_ITS ---
Exam(s) CT LOWER EXTREMITY LT WO EXAM: CT LOWER EXTREMITY LT WO CLINICAL HISTORY: distal femur fracture. TECHNIQUE: Imaging Protocol: Axial computed tomography images with coronal and sagittal reformatted images were created and reviewed. CONTRAST MATERIAL: Intravenous: Omnipaque 350 Contrast volume:structured data in ml Contrast route:I V - Oral: yes / no COMPARISON: CR,XR XR KNEE LT 3V AP,LAT,RONDA from 09/25/2022 FINDINGS: Are fracture lines in the distal femur with out significant displacement. The most medial of these f racture lines extends to the anterior intercondylar aspect of the knee joint space. There is no step at this level. Lipohemarthrosis noted. No evidence of tibial plateau fracture and the fibular head and neck are intact. IMPRESSION: Nondisplaced distal femur fracture which violates the articular surface and associated with lipohemar throsis. RADIATION DOSE DELIVERED: 292.18mGy.cm Total DLP DATA REPOSITORY: All CT scans at this facility are submitted to the National Radiology Data Registry (NRDR) Dose Index Registry (DIR) with the [employer] (A[employer]). RADIATION OPTIMIZATION: All CT scans at this facility use at least one of these dose optimization te chniques: automated exposure control; mA and/or kV adjustment per patient size (includes targeted exa ms where dose is matched to clinical indication); or iterative reconstruction.
[2022-09-25 18:00] LABS: Source Nasal/Nares
[2022-09-25 18:03] LABS: Abs Immature Grans 0.05 10^3/uL (0.0-0.06); Absolute Basophil Count 0.02 10^3/uL (0.0-0.2); Absolute Eosinophil Count 0.01 10^3/uL (0.0-0.7); Absolute Lymphocyte Count 0.67 10^3/uL (1.2-3.4); Absolute Monocyte Count 0.83 10^3/uL (0.1-0.8); Basophils % 0.2; Eosinophils % 0.1; HCT 43.3 % (36.0-46.0); HGB 13.5 g/dL (11.2-15.7); Immature Grans % 0.4; Lymphocytes % 5.5; MCH 28.1 pg (27.0-33.0); MCHC 31.2 % (32.0-36.0); MCV 90 fL (80-95); MPV 9.4 fL (8.0-11.0); Monocytes % 6.8; Platelet Count 318 10^3/uL (130-400); RDW 13.3 % (11.7-14.6); RDW-SD 44.3 fL; WBC 12.25 10^3/uL (4.4-10.8)
[2022-09-25 18:08] LABS: Absolute Neutrophil Count 10.66 10^3/uL (1.2-6.7)
--- NOTE | 2022-09-25 18:25 | DI.VRAD_ITS ---
PROCEDURE INFORMATION: Exam: CT Left Lower Extremity Without Contrast, Knee Exam date and time: 09/25/2022 5:49 PM Age: 67 years old Clinical indication: Injury or trauma; Fall; Blunt trauma; Knee; Left; Patient HX: Distal femur fracture TECHNIQUE: Imaging protocol: CT of the Left lower extremity without contrast was performed. Exam focused on the knee. COMPARISON: CR XR KNEE LT 3V AP,LAT,RONDA 09/25/2022 5:12 PM FINDINGS: Bones/joints: There is a large lipohemarthrosis present. As described on plain film assessment, there is a slightly comminuted in significantly displaced distal femoral shaft and metadiaphyseal fracture. There is a vertical component to the fracture which extends to the intercondylar notch. No additional fractures seen. Soft tissues: Normal. IMPRESSION: Nondisplaced slightly comminuted distal femoral fracture with associated lipohemarthrosis. Dictated and Authenticated by: Venita Curry MD. Ordering:NICKIE Cid MD
[2022-09-25 18:33] LABS: ALT 17 U/L (14-59); AST 24 U/L (15-37); Alkaline Phosphatase 139 U/L (46-116); Anion Gap 7.1 mmol/L (3-11); BUN 19 mg/dL (7-18); Bilirubin, Total 0.4 mg/dL (0.2-1.0); CO2 29.9 mmol/L (21.0-32.0); COVID-19 PCR Negative (Negative); CREATININE 1.1 mg/dL (0.55-1.02); Calcium 9.8 mg/dL (8.5-10.1); Chloride 101 mmol/L (98-107); Estimated GFR 55.07 (mL/min/1.73m2); Glucose 94 mg/dL (74-106); Sodium 138 mmol/L (136-145); Total Protein 7.8 g/dL (6.4-8.2)
[2022-09-25] MEDS: MORPHine 4 MG/ML SYR IVP ×2 (18:33→22:29)
[2022-09-25] MEDS: Furosemide 20 MG TAB PO (19:17)
[2022-09-25] MEDS: Lisinopril 10 MG TAB 20 MG PO (19:17)
[2022-09-25] MEDS: Acetylcysteine 600 MG CAP 1200 MG PO (19:42)
--- NOTE | 2022-09-25 22:27 | HPE_ITS ---
Date of service: 09/25/22 Time of Service: 23:58 Assessment and Plan Assessment and plan (1) Closed left femoral fracture: Start date: 09/25/22 Status: Acute Assessment and plan: This is a 67-year-old lady who had a fall at her living facility fracturing her left distal femur. She will require surgical repair and orthopedics has been consulted. She is medically stable with a history of peripheral edema but no CHF and lower extremity paraplegia with patient unsure exactly why but most likely from spinal disease. She does have hypertension which was slightly elevated with her pain but also this may have been inaccurately measured with repeat more reasonable. Meds will be adjusted for hypertension while hospitalized and pain management with immobilization and continued fentanyl with Tylenol. Patient is a DNR/DNI. Patient is medically cleared for surgery. (2) Frequent falls: Status: Chronic Assessment and plan: After surgical repair patient should have PT and OT prior to being transferred back to her living facility. (3) Hypertension: Assessment and plan: Not controlled at this time patient in pain but also variable measurements which may not be accurate. Patient will continue outpatient antihypertensives being adjusted for better control. Pain management may also help this problem. (4) Myasthenia gravis: Assessment and plan: Continue outpatient medical therapy (5) Neuropathic pain of both legs: Assessment and plan: Continue fentanyl patch and gabapentin as per outpatient dosing. (6) Spinal stenosis: Assessment and plan: With chronic pain and paraplegia. Physical therapy after knee repair to improve stability. (7) GERD (gastroesophageal reflux disease): Status: Chronic Assessment and plan: Continue PPI. (8) Neurogenic bladder: Assessment and plan: With history of frequent UTIs. Urinalysis will be checked and patient will have Brar catheter for comfort. History of Present Illness History of Present Illness Chief Complaint: Left knee pain status post fall Na rrative: This is a 67-year-old female patient brought to the ED for pain in the left knee after a fall when she was pivoting from wheelchair to bed. She has not walked for more than a year secondary to spinal stenosis. She does have a history of myasthenia gravis since she was in her 30s. She also has chronic pain on fentanyl and takes Lasix daily for peripheral edema with no history of CHF and no orthostasis or dizziness prompting fall. This fall was simply from ins tability with transferring. She is vague about her history and does not know why she is lost use of her legs when questioned. In the ED she was found to have a closed non-displaced, slightly comminuted fracture of the left distal femur and was placed in a knee brace for comfort. She will continue her chronic pain meds as well. Orthopedics was consulted and they could repair her at this institution if anesthesia is comfortable keeping her which will be discussed in the morning. Patient will be n.p.o. after midnight. Her chronic medical therapy will be continued with Lasix being held and gentle IV hydration with her n.p.o. status after midnight. There is no history of CHF as mentioned but only peripheral edema with her lack of use of her lower extremities. She does have a history of frequent UTIs with neurogenic bladder and urinalysis will be checked. She has had no fever or dysuria. Brar catheter is in place for comfort. She is a DNR/DNI. Review of Systems Narrative: 13 point review of systems otherwise unrevealing or stable. Patient is a vague historian. [facility] All Active Problems (Updated 09/25/22 @ 23:57 by Dioni Montgomery) Closed left femoral fracture (Acute) Weakness (Acute) Urinary retention (Acute) Urinary frequency (Acute) Pain (Acute) Hypokalemia (Acute) Frequent falls (Chronic) Dental caries (Acute) Bunion of unspecified foot (Acute) Intracranial arachnoid cyst (Chronic) GERD (gastroesophageal reflux disease) (Chronic) Asymptomatic microscopic hematuria (Acute) Chronic pain (Chronic) Chronic renal insufficiency (Acute) Left hand weakness (Acute) Ataxia (Acute) Constipation, chronic (Acute) POLST (Physician Orders for Life-Sustaining Treatment) (Acute) COLST completed 10/30/2020 with MAUREEN Marley, DNR/DNI DNR (do not resuscitate) (Acute) DNI (do not intubate) (Acute) Generalized weakness (Acute) Protein malnutrition (Acute) Left shoulder pain (Acute) Carpal tunnel syndrome of left wrist (Acute) Ulnar neuropathy of left upper extremity (Acute) Rupture of left proximal biceps tendon (Acute) Bursitis of left shoulder (Acute) Fluid collection at surgical site (Acute) Neurogenic bowel (Acute) Tachycardia (Acute) Elevated troponin (Acute) Palliative care patient (Acute) External bleeding hemorrhoids (Acute) Atelectasis (Acute) Oropharyngeal dysphagia (Acute) Fluid collection at surgical site (Acute) Palliative care patient (Acute) Urine abnormality (Acute) UTI (urinary tract infection) (Acute) Medical History Anxiety Arachnoid cyst COPD (chronic obstructive pulmonary disease) Depression Former smoker Gastric ulcer History of gluten intolerance History of lacunar cerebrovascular accident Hyperlipidemia Hypertension Insomnia previous misuse of Ambien Left arm weakness Migraine headache without aura Myasthenia gravis Neurogenic bladder Neuropathic pain of both legs Peripheral neuropathy Prediabetes Spasticity Spinal stenosis Syrinx of spinal cord Starting at C3 and extending to T11 Surgical History H/O craniotomy ; L cerebellar arachnoid cyst drain with shunt placement H/O esophagogastroduodenoscopy (~07/2021) 09/2021 H/O thymectomy 1980s S/P appendectomy S/P cystourethroscopy with dilation of urethral stricture S/P tonsillectomy Family History Mother , 90 Diabetes Hypertension Stroke Father , 73 Neuropathy Back problem Depression Heart disease Stroke Brother Myasthenia gravis Depression Maternal Grandfather , 80's Diabetes Paternal Grandfather , 50 Heart disease Maternal Grandmother , 80 No problems noted. Paternal Grandmother , 70 No problems noted. Social History Smoking/Tobacco Use Status: Former Tobacco Use tobacco type: cigarettes Quit Date: 08/15/16 Tobacco: How many years used: 35 Smoking risk assessment performed?: Yes Alcohol Intake: former Drug use: Never Substance use type: does not use Household members: other Housing: care home Number of Children: 0 Pets and animals: No Current gender identity: female What type of physical activity do you participate in: none Seatbelt use: always Do you feel safe at home: Yes (Pt lives alone) Do you feel safe in your relationship?: Yes Meds Allergies and Home Medications Allergies Allergy/AdvReac Type Severity Reaction Status Date / Time codeine Allergy Severe pt unsure Verified 07/05/22 14:43 of reaction iodine Allergy Severe pt unsure Verified 07/05/22 14:43 of reaction Penicillins Allergy Severe Anaphylaxsi Verified 07/05/22 14:43 s Sulfa (Sulfonamide Allergy Severe Swelling/Ed Verified 07/05/22 14:43 Antibiotics) kendal trazodone AdvReac Intermediate PER PT Verified 07/05/22 14:43 MAKES HER HEART RACE. Home Medications Medication Instructions Recorded Confirmed Type acetaminophen 500 mg tablet 1,000 mg PO TID PRN PRN pain #90 03/13/21 09/25/22 Rx tabs sennosides 8.6 mg tablet 8.6 mg PO BID PRN 04/16/21 09/25/22 History ondansetron 4 mg disintegrating 4 mg PO Q8H PRN nausea and 07/03/21 07/05/22 Rx tablet vomiting #30 tabs folic acid 1 mg tablet 1 mg PO DAILY AM #30 tabs 07/14/21 09/25/22 Rx pantoprazole 40 mg tablet,delayed See Rx Instructions .Route 07/14/21 09/25/22 Rx release .COMPLEX #42 tabs cyclobenzaprine 10 mg tablet See Rx Instructions PO .COMPLEX 01/04/22 09/25/22 Rx #270 tabs lisinopril 5 mg tablet 20 mg PO DAILY 02/03/22 09/25/22 History furosemide 20 mg tablet 20 mg PO DAILY #30 tabs 03/18/22 09/25/22 Rx lidocaine 5 % topical patch See Rx Instructions .Route 05/10/22 09/25/22 Rx .COMPLEX #30 patches acetylcysteine 600 mg capsule 1,200 mg PO BID #120 caps 05/31/22 09/25/22 Rx pyridostigmine bromide 180 mg See Rx Instructions .Route 06/03/22 09/25/22 Rx tablet,extended release .COMPLEX #90 tabs amlodipine 2.5 mg tablet 2.5 mg PO DAILY 07/30/22 09/25/22 History ciclopirox 8 % topical solution 1 applic topical DAILY 07/30/22 History multivit with mins-ferrous sulf 15 packet PO TID 07/30/22 History mg-folic 700 mcg oral powder packet (Phlexy-Vits) polyethylene glycol 3350 17 gram 17 g PO DAILY 07/30/22 09/25/22 History oral powder packet tizanidine 2 mg tablet 2 mg PO QHS PRN 07/30/22 09/25/22 History gabapentin 300 mg capsule See Rx Instructions .Route 08/17/22 09/25/22 Rx .COMPLEX #450 caps fentanyl 75 mcg/hr transdermal 1 patch transdermal Q72H #10 ea 09/14/22 09/25/22 Rx patch zolpidem 5 mg tablet (Ambien) 5 mg PO QHS PRN insomnia #30 tabs 09/14/22 09/25/22 Rx ibrexafungerp 150 mg tablet See Rx Instructions PO PER PKG DIR 09/24/22 09/25/22 Rx #4 tabs levofloxacin 750 mg tablet 750 mg PO DAILY 7 days #7 tabs 09/25/22 09/25/22 Rx Exam Narrative Exam Narrative: General: Patient appears older than stated age, flattened affect but good eye contact. She is alert and oriented to person, place and time. She is in no acute distress lying in bed with her left knee in a knee brace. HEENT: Normocephalic,, eyes with pupils equal and react light symmetrically, extraocular movement tact and sclera anicteric. Oropharynx with dry mucosa and poor dentition with missing and crooked discolored teeth. Neck: Supple without JVD. Back: Stooped posture without CVA tenderness. Lungs: Clear to auscultation and percussion. Breast: Exam deferred. Heart: Regular rate and rhythm with no murmurs or gallops appreciated. Abdomen: Normal contour, soft and nontender to palpation with no palpable hepatosplenomegaly. Bowel sounds positive all quadrants. Genitalia/rectal: Exam deferred. Patient has Brar catheter in place draining clear urine. Extremities: Without clubbing or cyanosis. 2+ pitting edema right ankle and 1+ on the left without skin breakdown. Loss of hair but no hyperpigmentation or atrophy. Left knee is in a brace and was tender and swollen upon admission. Skin: Normal color, warm and dry. Neuro: Cranial nerves II through XII appear grossly intact. Motor with paraplegia patient not moving her lower extremities with feet slightly extended at ankle. No tremor or fasciculations with exam. Upper extremity strength. Normal. Psych: Flattened affect with depressed mood. Patient is a vague historian but no abnormal thought processes. Remote and recent memory appear to be grossly intact but as mentioned patient is vague about details and does not even remember why she lost use of her lower extremities. Results Imaging Imaging Studies: Exam: CT Left Lower Extremity Without Contrast, Knee Exam date and time: 09/25/2022 5:49 PM Age: 67 years old Clinical indication: Injury or trauma; Fall; Blunt trauma; Knee; Left; Patient HX: Distal femur fracture TECHNIQUE: Imaging protocol: CT of the Left lower extremity without contrast was performed. Exam focused on the knee. COMPARISON: CR XR KNEE LT 3V AP,LAT,RONDA 09/25/2022 5:12 PM FINDINGS: Bones/joints: There is a large lipohemarthrosis present. As described on plain film assessment, there is a slightly comminuted in significantly displaced distal femoral shaft and metadiaphyseal fracture. There is a vertical component to the fracture which extends to the intercondylar notch. No additional fractures seen. Soft tissues: Normal. IMPRESSION: Nondisplaced slightly comminuted distal femoral fracture with associated lipohemarthrosis. Exam: XR Left Knee Exam date and time: 09/25/2022 5:12 PM Age: 67 years old Clinical indication: Injury or trauma; Fall; Blunt trauma; Knee; Left TECHNIQUE: Imaging protocol: Radiologic exam of the Left knee. Views: 3 views. COMPARISON: US EXTREMITY VENOUS BI 04/05/2022 12:26 PM FINDINGS: Bones/joints: There is a moderate to large joint effusion present. There appears to be a lipohemarthrosis. There is a significant distal femoral metadiaphyseal fracture without significant displacement. There is a vertical component extending into the intercondylar notch. Soft tissues: Normal. IMPRESSION: Significant distal femoral fracture, nondisplaced. Lipohemarthrosis associated. Labs 09/25/22 17:55 09/25/22 17:55 Labs: Laboratory Results - last 24 hr 09/25/22 09/25/22 09/25/22 17:55 17:55 17:55 WBC 12.25 H RBC 4.80 Hgb 13.5 Hct 43.3 MCV 90 MCH 28.1 MCHC 31.2 L RDW 13.3 Plt Count 318 MPV 9.4 Immature Gran % 0.4 Neutrophils % 87.0 Lymphocytes % 5.5 Monocytes % 6.8 Eosinophils % 0.1 Basophils % 0.2 Nucleated RBC % 0.0 Absolute Neutrophils 10.66 H Absolute Lymphocytes 0.67 L Absolute Monocytes 0.83 H Absolute Eosinophils 0.01 Absolute Basophils 0.02 Sodium 138 Potassium 5.0 Chloride 101 Carbon Dioxide 29.9 Anion Gap 7.1 BUN 19 H Creatinine 1.1 H Est GFR (CKD-EPI 2020) 55.07 Glucose 94 Calcium 9.8 Total Bilirubin 0.4 AST 24 ALT 17 Alkaline Phosphatase 139 H Total Protein 7.8 Albumin 4.0 COVID-19 Source Nasal/Nares SARS-CoV-2 (PCR) Negative Last Vital Signs Temp 37.0 C 09/25/22 15:55 Pulse 93 H 09/25/22 21:02 Resp 16 09/25/22 15:55 BP 157/138 H 09/25/22 21:02 Pulse Ox 97 09/25/22 21:30 Time Spent Time spent with Patient: >75 minutes Time was spent: preparing to see the patient(eg.review tests), obtaining and/or reviewing separately otained hiistory, ordering medications,tests, procedures, referring, communicating with other health director long term care, indepentently interpreting results and care coordination
--- NOTE | 2022-09-25 22:54 | NUR.NOTE ---
report from BERNICE Robbins. Pt lying quietly on stretcher with eyes open. No new complaints. Awaiting room assignment for admission
[2022-09-25 23:35] LABS: Bilirubin Negative (Negative); Blood Trace-intact (Negative); Clarity Clear (Clear); Glucose Negative (Negative); Ketones Negative (Negative); Leukocyte Esterase Trace (Negative); Nitrite Negative (Negative); Urobilinogen 0.2 EU/dL (Up TO 0.2)
[2022-09-25 23:46] LABS: Bacteria Rare HPF (Negative); C & S Indicated? Yes; Casts Negative LPF (Negative); Crystals Negative HPF (Negative); Epithelial Cells Rare HPF (Negative); Mucus Negative (Negative); RBC 0-2 HPF (0-2)
[2022-09-26] VITALS (15 sets, daily range): BP systolic 118–185; BP diastolic 68–110; PULSE 75–106; RESP 17–19; TEMP 36.7–37.8; O2SAT 93–96
--- NOTE | 2022-09-26 | DI.RAD_ITS ---
Exam(s) XR PORTABLE CHEST AP EXAM: XR PORTABLE CHEST AP CLINICAL HISTORY: preop clearance. TECHNIQUE: 2D digital imaging was performed. COMPARISON: CT ABD/PELVIS WO W CONTRAST from 03/07/2018 CR,XR XR PORTABLE CHEST AP from 04/02/2022 FINDINGS: Single AP portable view. Sternotomy wires again noted. Scoliosis again noted. Heart size is upper normal. The mediastinum is not widened. Right lung remains clear. Prominent elevation left hemidiaphragm is unchanged and there air-filled b owel loops again noted subjacent to the elevated left hemidiaphragm. No obvious pleural effusions. IMPRESSION: Chronically elevated left hemidiaphragm. No acute pulmonary findings. Sternotomy wires. No pulmona ry edema. DATA REPOSITORY: RADIATION DOSE DELIVERED:
[2022-09-26] MEDS: Cyclobenzaprine 10 MG TAB 20 MG PO ×2 (00:35→21:05)
[2022-09-26] MEDS: Normal Saline 1,000 ML 100 ML IV (00:37)
[2022-09-26] MEDS: fentaNYL 100 MCG/2 ML VIAL 50 MCG IVP ×6 (00:37→22:04)
[2022-09-26] MEDS: Normal Saline Flush 10 ML SYR IVP ×6 (00:37→22:06)
[2022-09-26] MEDS: Metoprolol 5 MG/5 ML VIAL IVP (01:30)
[2022-09-26] MEDS: Zolpidem 5 MG TAB PO ×2 (01:30→21:04)
[2022-09-26] MEDS: Folic Acid 1 MG TAB PO (06:36)
[2022-09-26 06:50] LABS: HCT 40.6 % (36.0-46.0); HGB 13.2 g/dL (11.2-15.7); MCH 28.4 pg (27.0-33.0); MCHC 32.5 % (32.0-36.0); MCV 88 fL (80-95); MPV 9.8 fL (8.0-11.0); Platelet Count 300 10^3/uL (130-400); RBC 4.64 10^6/uL (3.93-5.22); RDW 13.5 % (11.7-14.6); RDW-SD 43.1 fL
--- NOTE | 2022-09-26 07:11 | OCONE_ITS ---
Date of service: 09/26/22 Time of Service: 11:00 Assessment and Plan Assessment and plan (1) Closed fracture of left distal femur: Status: Acute Assessment and plan: 67 year old female with Left intra-articular minimally displaced distal femur fx Patient with fall yesterday at [facility] where she lives. Significant medical co-morbidities. Largely wheelchair and bed bound. Able to partially support her self and weight bear for transfers. Comfortable at rest in hospital bed. Left knee immobilizer opened up. Moderate skin wrinkling due to over?tightness. Thigh compartments soft. Moderate knee effusion. No ecchymosis yet. Sensation intact throughout to light touch. Knee immobilizer also overwrapped over chronic suprapubic catheter thigh attachment site. Adhesive remover with alcohol. Should be reaffixed to the contralateral thigh. Soft roll applied about the thigh knee and leg. Knee immobilizer cut down to fit with the edges now reapproximating at more appropriate tension. Imaging shows extremely poor bone quality, probable Hoffa's fragment, and no other fractures of visualized proximal tibia/fibula or femoral shaft. Challenging case. QUITLINE COUNSELOR review recommends anesthesia at tertiary care facility if possible. [facility] orthopedics Dr. Mckeon refused transfer last night and advised treatment with knee immobilizer. [facility] at [facility]. I discussed the case w ith the Dr. Huntley and Dr. Byrd this morning. A strong case could be made to treat this fracture with surgery to potentially optimize healing and allow for earlier mobilization. However, given low overall patient function and minimal fracture displacement, would be reasonable to trial nonoperative management. Discussed with patient and shared decision made to proceed with trial of nonoper ative management. She is comfortable at rest and would like the opportunity to heal this fracture without surgery. While patient is resting in bed and not repositioning or moving, knee immobilizer should be opened up or at least loosened to reduce pressure on skin and chance of skin breakdown. Knee immobilizer should be relatively snug during repositioning and while out of bed. Maintain knee straight in full extension for 4 weeks. Plan on non-weightbearing left lower extremity about 6-8 weeks. Replace soft roll padding and/or Elvis bandage as needed to protect skin from knee immobilizer. We should provide a second knee immobilizer so it is available in case this one becomes soiled near diaper. Recommend follow-up with trauma direct support specialist Dr. Alok Byrd at [facility] in about 1 week. Multimodal pain control, DVT prophylaxis, and medical management pending placement. Copy note to Dr. Moran [facility] All Active Problems (Updated 09/26/22 @ 07:12 by Marcial Up MD) Closed fracture of left distal femur (Acute 09/25/22) Weakness (Acute) Urinary retention (Acute) Urinary frequency (Acute) Pain (Acute) Hypokalemia (Acute) Frequent falls (Chronic) Dental caries (Acute) Bunion of unspecified foot (Acute) Intracranial arachnoid cyst (Chronic) GERD (gastroesophageal reflux disease) (Chronic) Asymptomatic microscopic hematuria (Acute) Chronic pain (Chronic) Chronic renal insufficiency (Acute) Left hand weakness (Acute) Ataxia (Acute) Constipation, chronic (Acute) POLST (Physician Orders for Life-Sustaining Treatment) (Acute) COLST completed 10/30/2020 with Jennifer Lugo, RURAL SERVICE ENGINEER, DNR/DNI DNR (do not resuscitate) (Acute) DNI (do not intubate) (Acute) Generalized weakness (Acute) Protein malnutrition (Acute) Left shoulder pain (Acute) Carpal tunnel syndrome of left wrist (Acute) Ulnar neuropathy of left upper extremity (Acute) Rupture of left proximal biceps tendon (Acute) Bursitis of left shoulder (Acute) Fluid collection at surgical site (Acute) Neurogenic bowel (Acute) Tachycardia (Acute) Elevated troponin (Acute) Palliative care patient (Acute) External bleeding hemorrhoids (Acute) Atelectasis (Acute) Oropharyngeal dysphagia (Acute) Fluid collection at surgical site (Acute) Palliative care patient (Acute) Urine abnormality (Acute) UTI (urinary tract infection) (Acute) Medical History Anxiety Arachnoid cyst COPD (chronic obstructive pulmonary disease) Depression Former smoker Gastric ulcer History of gluten intolerance History of lacunar cerebrovascular accident Hyperlipidemia Hypertension Insomnia previous misuse of Ambien Left arm weakness Migraine headache without aura Myasthenia gravis Neurogenic bladder Neuropathic pain of both legs Peripheral neuropathy Prediabetes Spasticity Spinal stenosis Syrinx of spinal cord Starting at C3 and extending to T11 Surgical History H/O craniotomy ; L cerebellar arachnoid cyst drain with shunt placement H/O esophagogastroduodenoscopy (~07/2021) 09/2021 H/O thymectomy 1980s S/P appendectomy S/P cystourethroscopy with dilation of urethral stricture S/P tonsillectomy Family History Mother , 90 Diabetes Hypertension Stroke Father , 73 Neuropathy Back problem Depression Heart disease Stroke Brother Myasthenia gravis Depression Maternal Grandfather , 80's Diabetes Paternal Grandfather , 50 Heart disease Maternal Grandmother , 80 No problems noted. Paternal Grandmother , 70 No problems noted. Social History Smoking/Tobacco Use Status: Former Tobacco Use tobacco type: cigarettes Quit Date: 08/15/16 Tobacco: How many years used: 35 Smoking risk assessment performed?: Yes Alcohol Intake: former Drug use: Never Substance use type: does not use Household members: other Housing: residential Number of Children: 0 Pets and animals: No Current gender identity: female What type of physical activity do you participate in: none Seatbelt use: always Do you feel safe at home: Yes (Pt lives alone) Do you feel safe in your relationship?: Yes Results Last Vital Signs Temp 98.6 F 09/25/22 23:59 Pulse 88 09/26/22 01:40 Resp 18 09/25/22 23:59 BP 170/100 H 09/26/22 06:37 Pulse Ox 94 09/26/22 03:52 Labs 09/26/22 06:11 09/25/22 17:55 Labs: Laboratory Results - last 24 hr 09/25/22 09/25/22 09/25/22 17:55 17:55 17:55 WBC 12.25 H RBC 4.80 Hgb 13.5 Hct 43.3 MCV 90 MCH 28.1 MCHC 31.2 L RDW 13.3 Plt Count 318 MPV 9.4 Immature Gran % 0.4 Neutrophils % 87.0 Lymphocytes % 5.5 Monocytes % 6.8 Eosinophils % 0.1 Basophils % 0.2 Nucleated RBC % 0.0 Absolute Neutrophils 10.66 H Absolute Lymphocytes 0.67 L Absolute Monocytes 0.83 H Absolute Eosinophils 0.01 Absolute Basophils 0.02 Sodium 138 Potassium 5.0 Chloride 101 Carbon Dioxide 29.9 Anion Gap 7.1 BUN 19 H Creatinine 1.1 H Est GFR (CKD-EPI 2020) 55.07 Glucose 94 Calcium 9.8 Total Bilirubin 0.4 AST 24 ALT 17 Alkaline Phosphatase 139 H Total Protein 7.8 Albumin 4.0 Urine Color Urine Clarity Urine pH Ur Specific [place] Urine Protein Urine Ketones Urine Blood Urine Nitrite Urine Bilirubin Urine Urobilinogen Ur Leukocyte Esterase Urine RBC Urine WBC Ur Epithelial Cells Urine Crystals Urine Bacteria Urine Casts Urine Mucus Ur Culture Indicated? Urine Glucose COVID-19 Source Nasal/Nares SARS-CoV-2 (PCR) Negative 09/25/22 09/26/22 23:28 06:11 WBC 12.10 H RBC 4.64 Hgb 13.2 Hct 40.6 MCV 88 MCH 28.4 MCHC 32.5 RDW 13.5 Plt Count 300 MPV 9.8 Immature Gran % Neutrophils % Lymphocytes % Monocytes % Eosinophils % Basophils % Nucleated RBC % Absolute Neutrophils Absolute Lymphocytes Absolute Monocytes Absolute Eosinophils Absolute Basophils Sodium Potassium Chloride Carbon Dioxide Anion Gap BUN Creatinine Est GFR (CKD-EPI 2020) Glucose Calcium Total Bilirubin AST ALT Alkaline Phosphatase Total Protein Albumin Urine Color Yellow Urine Clarity Clear Urine pH 7.0 Ur Specific [place] 1.020 Urine Protein Negative Urine Ketones Negative Urine Blood Trace-intact H Urine Nitrite Negative Urine Bilirubin Negative Urine Urobilinogen 0.2 Ur Leukocyte Esterase Trace H Urine RBC 0-2 Urine WBC 3-5 Ur Epithelial Cells Rare Urine Crystals Negative Urine Bacteria Rare Urine Casts Negative Urine Mucus Negative Ur Culture Indicated? Yes Urine Glucose Negative COVID-19 Source SARS-CoV-2 (PCR)
[2022-09-26 07:14] LABS: INR 1.1 (0.9-1.1)
[2022-09-26 07:19] LABS: ALT 17 U/L (14-59); AST 15 U/L (15-37); Albumin 3.6 g/dL (3.4-5.0); Alkaline Phosphatase 121 U/L (46-116); Anion Gap 10.8 mmol/L (3-11); BUN 16 mg/dL (7-18); Bilirubin, Total 0.7 mg/dL (0.2-1.0); CO2 26.2 mmol/L (21.0-32.0); CREATININE 1.2 mg/dL (0.55-1.02); Calcium 9.5 mg/dL (8.5-10.1); Chloride 100 mmol/L (98-107); Estimated GFR 49.61 (mL/min/1.73m2); Glucose 168 mg/dL (74-106); Magnesium 1.9 mg/dL (1.8-2.4); Potassium 3.6 mmol/L (3.5-5.1); Sodium 137 mmol/L (136-145); Total Protein 7.5 g/dL (6.4-8.2)
[2022-09-26] MEDS: Lisinopril 20 MG TAB PO (08:06)
[2022-09-26] MEDS: amLODIPine 2.5 MG TAB 5 MG PO (08:06)
[2022-09-26] MEDS: Pantoprazole 40 MG TABCR PO (08:07)
[2022-09-26] MEDS: Gabapentin 300 MG CAP PO ×2 (08:07→21:03)
[2022-09-26] MEDS: Metoprolol 25 MG TAB PO ×2 (08:16→21:05)
--- NOTE | 2022-09-26 09:26 | PDOC.CMIN ---
- If Service Date Differs Date of service: 09/26/22 Time of Service: 09:26 Care Management Initial Assess REASON FOR HOSPITALIZATION:: closed femoral fracture PAST MEDICAL HISTORY/PAST SURGICAL HISTORY:: All Active Problems (Updated 09/25/22 @ 23:57 by Dioni Montgomery). Closed left femoral fracture (Acute). Weakness (Acute). Urinary retention (Acute). Urinary frequency (Acute). Pain (Acute). Hypokalemia (Acute). Frequent falls (Chronic). Dental caries (Acute). Bunion of unspecified foot (Acute). Intracranial arachnoid cyst (Chronic). GERD (gastroesophageal reflux disease) (Chronic). Asymptomatic microscopic hematuria (Acute). Chronic pain (Chronic). Chronic renal insufficiency (Acute). Left hand weakness (Acute). Ataxia (Acute). Constipation, chronic (Acute). POLST (Physician Orders for Life-Sustaining Treatment) (Acute). COLST completed 10/30/2020 with Jennifer Lugo, MAUREEN, DNR/DNI. DNR (do not resuscitate) (Acute). DNI (do not intubate) (Acute). Generalized weakness (Acute). Protein malnutrition (Acute). Left shoulder pain (Acute). Carpal tunnel syndrome of left wrist (Acute). Ulnar neuropathy of left upper extremity (Acute). Rupture of left proximal biceps tendon (Acute). Bursitis of left shoulder (Acute). Fluid collection at surgical site (Acute). Neurogenic bowel (Acute). Tachycardia (Acute). Elevated troponin (Acute). Palliative care patient (Acute). External bleeding hemorrhoids (Acute). Atelectasis (Acute). Oropharyngeal dysphagia (Acute). Fluid collection at surgical site (Acute). Palliative care patient (Acute). Urine abnormality (Acute). UTI (urinary tract infection) (Acute). Medical History . Anxiety. Arachnoid cyst. COPD (chronic obstructive pulmonary disease). Depression. Former smoker. Gastric ulcer. History of gluten intolerance. History of lacunar cerebrovascular accident. Hyperlipidemia. Hypertension. Insomnia. previous misuse of Ambien. Left arm weakness. Migraine headache without aura. Myasthenia gravis. Neurogenic bladder. Neuropathic pain of both legs. Peripheral neuropathy. Prediabetes. Spasticity. Spinal stenosis. Syrinx of spinal cord. Starting at C3 and extending to T11. Surgical History . H/O craniotomy. ; L cerebellar arachnoid cyst drain with shunt placement. H/O esophagogastroduodenoscopy (~07/2021). 09/2021. H/O thymectomy. . S/P appendectomy. S/P cystourethroscopy with dilation of urethral stricture. S/P tonsillectomy PREVIOUS FUNCTIONAL STATUS/SOCIAL/FAMILY SUPPORTS:: Missy lives alone in an apartment in the [facility].She does not have any family in the area and only communicates with her [id number] in [place]. Missy has myasthenia gravis and requires assistance. At baseline she is able to transfer bed to chair/wheelchair and commode and back. She has OT support through [facility] for assistance with showering twice a week and RN visits every other week. Missy has [facility] moderate needs and has a friend Nina Trinidad who has been helping her and is paid through that program. She does grocery shopping, housekeeping and laundry for Missy. CURRENT FUNCTIONAL STATUS:: Missy was sitting up in bed when CM met with her. She engaged easily with CM, known to her from a previous hospitalization. Missy admitted that she is having a bit of pain in her leg. There are no beds [facility] at [facility] or [facility] and if Missy were to have surgery, it would need to be at a tertiary care facility due to her comorbidities. The decision has been made to try non-operative treatment. Missy will need to keep her knee in fulll extension for at least 4 weeks and be non-weight bearing for 6-8 weeks, per Dr. Up. CM asked Missy if she would be willing to consider rehab since she lives alone and does not have adequate caregiver support. At first she responded no, and stated that she wanted to go home, but after discussion, agreed to have CM send referrals to a few facilitiies. She will have OT and PT evaluations tomorrow which will clarify what she is and is not capable of at this time. After the PT evaluation, Missy and CM will meet and again discuss discharge options. She is in agreement with this plan. ADVANCE DIRECTIVES:: COLST on file. [id number] Niharika Kim listed as [facility] Has patient been provided with info about the portal/API?: Yes Did the patient sign up for the portal?: No CODE STATUS:: DNR/DNI INSURANCE COVERAGE / FINANCIAL ISSUES:: [employer] CURRENT HOME/COMMUNITY SERVICES/EQUIPMENT:: [employer] Moderate needs - Has some caregiver support. Home health nursing every other week and OT for showering. Meals on Wheels through [facility]. Missy has 2 wheelchairs and a walker PRIMARY CARE PHYSICIAN:: Prashanth Lam POTENTIAL DISCHARGE NEEDS:: follow up with PCP, surgeon and plan of care. may need to go to SNF for short term rehab PATIENT/FAMILY EDUCATION NEEDS:: Review of discharge instructions, activity, limitations, medications, follow up plan, discuss Ask Me Three TRANSPORTATION:: to be determined by disposition PLAN:: Anticipate Missy will require short term rehab in a SNF before returning home with a resumption of services. CM sent referrals to [facility], [facility] and [facility] with Missy's approval. CM will continue to follow and assess for ongoing discharge needs.
--- NOTE | 2022-09-26 10:24 | DI.VRAD_ITS ---
PROCEDURE INFORMATION: Exam: XR Chest Exam date and time: 09/26/2022 8:50 AM Age: 67 years old Clinical indication: Other: Preop clearance TECHNIQUE: Imaging protocol: Radiologic exam of the chest. Views: 1 view. COMPARISON: XR PORTABLE CHEST AP 04/02/2022 6:10 PM FINDINGS: Lungs: Unremarkable. No consolidation. Pleural spaces: Unremarkable. No pleural effusion. No pneumothorax. Heart/Mediastinum: Unremarkable. No cardiomegaly. Diaphragm: Continued marked elevation of the left hemidiaphragm with underlying bowel gas. Bones/joints: Stable scoliotic curvature of the thoracolumbar spine. Median sternotomy wires. IMPRESSION: 1. Continued marked elevation of the left hemidiaphragm with underlying bowel gas. 2. No interval change. Dictated and Authenticated by: Gloria Carpenter MD. Ordering:BUTCH Stephens MD
[2022-09-26] MEDS: Heparin 5,000 UNITS/ML VIAL 5000 UNITS SC ×2 (10:43→18:30)
[2022-09-26] MEDS: Acetaminophen 325 MG TAB PO (15:08)
--- NOTE | 2022-09-26 20:23 | W.PM.PROGNOT ---
Date of Service Date of service: 09/26/22 Time of Service: 12:00 Subjective Subjective Patient reports: no new complaints, feels better, pain is less, tolerating a regular diet, bowel movement and afebrile; denies diarrhea, nausea, vomiting or shortness of breath Interval history since last seen: Resting comfortably, eating and drinking without issue. Pain is controlled Objective Last Vital Signs Temp 37.1 C 09/26/22 19:11 Pulse 90 09/26/22 19:11 Resp 17 09/26/22 19:11 BP 118/81 09/26/22 19:11 Pulse Ox 96 09/26/22 19:11 Laboratory Results - last 24 hr 09/25/22 09/26/22 09/26/22 23:28 06:11 06:11 WBC RBC Hgb Hct MCV MCH MCHC RDW Plt Count MPV PT 11.0 INR 1.1 Sodium 137 Potassium 3.6 D Chloride 100 Carbon Dioxide 26.2 Anion Gap 10.8 BUN 16 Creatinine 1.2 H Est GFR (CKD-EPI 2020) 49.61 Glucose 168 H Calcium 9.5 Magnesium 1.9 Total Bilirubin 0.7 AST 15 ALT 17 Alkaline Phosphatase 121 H Total Protein 7.5 Albumin 3.6 Urine Color Yellow Urine Clarity Clear Urine pH 7.0 Ur Specific [place] 1.020 Urine Protein Negative Urine Ketones Negative Urine Blood Trace-intact H Urine Nitrite Negative Urine Bilirubin Negative Urine Urobilinogen 0.2 Ur Leukocyte Esterase Trace H Urine RBC 0-2 Urine WBC 3-5 Ur Epithelial Cells Rare Urine Crystals Negative Urine Bacteria Rare Urine Casts Negative Urine Mucus Negative Ur Culture Indicated? Yes Urine Glucose Negative 09/26/22 06:11 WBC 12.10 H RBC 4.64 Hgb 13.2 Hct 40.6 MCV 88 MCH 28.4 MCHC 32.5 RDW 13.5 Plt Count 300 MPV 9.8 PT INR Sodium Potassium Chloride Carbon Dioxide Anion Gap BUN Creatinine Est GFR (CKD-EPI 2020) Glucose Calcium Magnesium Total Bilirubin AST ALT Alkaline Phosphatase Total Protein Albumin Urine Color Urine Clarity Urine pH Ur Specific [place] Urine Protein Urine Ketones Urine Blood Urine Nitrite Urine Bilirubin Urine Urobilinogen Ur Leukocyte Esterase Urine RBC Urine WBC Ur Epithelial Cells Urine Crystals Urine Bacteria Urine Casts Urine Mucus Ur Culture Indicated? Urine Glucose Time Spent with Patient Time Spent with Patient: 35-49 minutes Time was spent: preparing to see the patient(eg.review tests), obtaining and/or reviewing separately otained hiistory, ordering medications,tests, procedures, referring, communicating with other health children's zoo caretaker, indepentently interpreting results, counseling the patient and care coordination
[2022-09-26] MEDS: Acetylcysteine 600 MG CAP 1200 MG PO (21:04)
[2022-09-26] MEDS: Patient's Own Medication 1 EACH MISC PO (21:42)
[2022-09-27] VITALS (8 sets, daily range): BP systolic 90–126; BP diastolic 58–84; PULSE 55–110; RESP 16–17; TEMP 36.8–37.5; O2SAT 94–97
[2022-09-27] MEDS: Heparin 5,000 UNITS/ML VIAL 5000 UNITS SC ×2 (03:12→10:30)
[2022-09-27 07:13] LABS: Abs Immature Grans 0.03 10^3/uL (0.0-0.06); Absolute Basophil Count 0.02 10^3/uL (0.0-0.2); Absolute Eosinophil Count 0.02 10^3/uL (0.0-0.7); Absolute Lymphocyte Count 0.78 10^3/uL (1.2-3.4); Absolute Monocyte Count 0.93 10^3/uL (0.1-0.8); Absolute Neutrophil Count 7.48 10^3/uL (1.2-6.7); Basophils % 0.2; Eosinophils % 0.2; HCT 37.8 % (36.0-46.0); Immature Grans % 0.3; Lymphocytes % 8.4; MCHC 31.7 % (32.0-36.0); MCV 88 fL (80-95); MPV 10.1 fL (8.0-11.0); Neutrophils % 80.9; Platelet Count 264 10^3/uL (130-400); RBC 4.28 10^6/uL (3.93-5.22); RDW 13.7 % (11.7-14.6); RDW-SD 44.8 fL; WBC 9.26 10^3/uL (4.4-10.8)
[2022-09-27 07:28] LABS: Anion Gap 9.2 mmol/L (3-11); BUN 20 mg/dL (7-18); CO2 25.8 mmol/L (21.0-32.0); Calcium 9.4 mg/dL (8.5-10.1); Chloride 101 mmol/L (98-107); Estimated GFR 61.75 (mL/min/1.73m2); Glucose 104 mg/dL (74-106); Magnesium 1.9 mg/dL (1.8-2.4); Potassium 3.7 mmol/L (3.5-5.1); Sodium 136 mmol/L (136-145)
[2022-09-27] MEDS: Acetylcysteine 600 MG CAP 1200 MG PO ×2 (07:41→20:57)
[2022-09-27] MEDS: amLODIPine 2.5 MG TAB 5 MG PO (07:41)
[2022-09-27] MEDS: fentaNYL 100 MCG/2 ML VIAL 50 MCG IVP ×3 (07:42→16:39)
[2022-09-27] MEDS: Lisinopril 20 MG TAB PO (07:43)
[2022-09-27] MEDS: Folic Acid 1 MG TAB PO (07:43)
[2022-09-27] MEDS: Gabapentin 300 MG CAP PO ×2 (07:43→20:57)
[2022-09-27] MEDS: Metoprolol 25 MG TAB PO ×2 (07:44→20:57)
[2022-09-27] MEDS: Normal Saline Flush 10 ML SYR IVP ×4 (07:44→16:39)
[2022-09-27] MEDS: Pantoprazole 40 MG TABCR PO (07:44)
[2022-09-27] MEDS: Cyclobenzaprine 10 MG TAB PO (10:10)
--- NOTE | 2022-09-27 10:43 | PDOC.CMPRO ---
- If Service Date Differs Date of service: 09/27/22 Time of Service: 10:43 Care Management Progress Note S/O:Missy was sitting up in bed when CM met with her. She was, as usual, smiling and pleasant. CM sent referrals to several SNFs yesterday for short term rehab. Two of the facilities reached out today and both declined to offer her a bed. One was a clinical denial ([facility]) and the other was because of insurance. Missy has [employer] which is a state Medicare replacement program. Because she will be non weight bearing for up to 8 weeks, the concern was that she would not require skilled services and there would be no payer source. TOMMY explained this to Missy who was disappointed to learn that she does not have standard Medicare anymore. She believed that [employer] was a supplement to Medicare not a replacement. TOMMY contacted [facility] today and Kacie Juan is working wirh Missy to determine if she is eligible for Medicaid. If unable to secure a bed in a SNF, it may be necessary for Missy to transition to [facility] in the near future. A: Missy is a 67 year old woman admitted om 09/25/22 with a fractured femur P:Anticipate Missy will require short term rehab in a SNF before returning home with a resumption of services. CM sent referrals to [facility] and [facility] with Missy's approval. CM will continue to follow and assess for ongoing discharge needs.
--- NOTE | 2022-09-27 12:24 | PT.INIE ---
Date of service: 09/27/22 Time of Service: 11:44 PT Notes Visit Reasons: Closed Left Distal Femur Fracture Inpatient Physical Therapy Evaluation Date: 09/27/2022 Referring Doctor:? Kat Moran MD PT Orders: PT CONSULT: Limited ability Precautions: Standard.??Per orthopod order: Keep L knee in extension using knee immobilizer when OOB. NWB on the L LE with AD. Paraparetic,? wheelchair-bound.? Stand-squat transfers only after set up of wheelchair,? does better leading with R LE. Patient Profile/Admitting Diagnosis: Orders received for this 67-year-old female with a history of myasthenia gravis, spinal cord decompression, spinal stenosis, and a host of multiple other health ailments presented to the ED on 09/25/2022 due to a fall that resulted to a non-displaced distal femoral fracture on the L side as seen on imaging.? Per Dr. Up, patient is not a good surgical candidate and recommended immobilization of the L knee in extension using knee immobilizer for 4 weeks with patient NWB on the L LE with assistive device. PMHX: All Active Problems?(Updated 09/25/22 @ 23:57 by Dioni Montgomery) Closed left femoral fracture (Acute) Weakness (Acute) Urinary retention (Acute) Urinary frequency (Acute) Pain (Acute) Hypokalemia (Acute) Frequent falls (Chronic) Dental caries (Acute) Bunion of unspecified foot (Acute) Intracranial arachnoid cyst (Chronic) GERD (gastroesophageal reflux disease) (Chronic) Asymptomatic microscopic hematuria (Acute) Chronic pain (Chronic) Chronic renal insufficiency (Acute) Left hand weakness (Acute) Ataxia (Acute) Constipation, chronic (Acute) POLST (Physician Orders for Life-Sustaining Treatment) (Acute) COLST completed 10/30/2020 with MAUREEN Marley, DNR/DNIDNR (do not resuscitate) (Acute) DNI (do not intubate) (Acute) Generalized weakness (Acute) Protein malnutrition (Acute) Left shoulder pain (Acute) Carpal tunnel syndrome of left wrist (Acute) Ulnar neuropathy of left upper extremity (Acute) Rupture of left proximal biceps tendon (Acute) Bursitis of left shoulder (Acute) Fluid collection at surgical site (Acute) Neurogenic bowel (Acute) Tachycardia (Acute) Elevated troponin (Acute) Palliative care patient (Acute) External bleeding hemorrhoids (Acute) Atelectasis (Acute) Oropharyngeal dysphagia (Acute) Fluid collection at surgical site (Acute) Palliative care patient (Acute) Urine abnormality (Acute) UTI (urinary tract infection) (Acute) Medical History? 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 H/O craniotomy ; L cerebellar arachnoid cyst drain with shunt placement H/O esophagogastroduodenoscopy (~07/2021) 09/2021 H/O thymectomy 1980s S/P appendectomy S/P cystouret Arthroscopy with dilation of urethral stricture S/P tonsillectomy Social History/Home Situation: Patient lives at home alone.? Main mode of mobility indoors and outdoors is wheelchair.? Receives meals on wheels.? HH aide comes in twice a week for an hour to help with bathing and some chores at home.? Goes to MD appointments [facility] [employer].? Friend does grocery shopping. Equipment Owned/DME: Wheelchair Subjective: Reports intermittent muscle cramping through B legs and back that brings about her pain level up to 8/10. Fearful of getting out of bed unless the spasm are better controlled. Patient states that she was meaning to tell her PCP about the spasms in her legs which has become worse in the past 6 months. Nurse Tri states that she will reahc out to Kashmir Moran regarding this. Patient agreeable with plan to try get up later in the afternoon if pain level and spasms are controlled. Add sthat she has had 3 falls in the past 12 months. Objective: General inspection:? Supine in bed.? Brar catheter in place.? Telemetry monitoring in place.? Arthritic deformity in? L hand. KI in L LE Mental Status: Alert and oriented x 4 Pain: 8/10 in B UE with L worse ROM: Right Upper Extremity: ? Shoulder Flexion WFL. Shoulder abduction WFL. Elbow flexion WFL. Wrist flexion WFL. Functional opening and closing of hand limited Left Upper Extremity:? Shoulder Flexion WFL. Shoulder abduction WFL. Elbow flexion WFL. Wrist flexion WFL. Functional opening and closing of hand WFL. Right Lower Extremity: Hip flexion allows up to 90 degrees. Hip abduction 10 degrees. Knee flexion up to 90 degrees passively. Ankle dorsiflexion 5 degrees. Ankle plantarflexion 5 degrees. Left Lower Extremity: NT Strength: Right Upper Extremity: Shoulder flexors 4-/5. Shoulder abductors 4-/5. Elbow flexors 4-/5. Elbow extensors 4-/5. Fish And Wildlife Warden weak but functional Left Upper Extremity: Shoulder flexors 4-/5. Shoulder abductors 4-/5. Elbow flexors 4-/5. Elbow extensors 4-/5. Fish And Wildlife Warden weak but functional Right Lower Extremity: Hip flexors 3-/5. Hip abductors 2-/5. Knee flexors 2-/5. Knee extensors 2-/5. Ankle dorsiflexors 2-/5. Ankle plantarflexors 3-/5. Left Lower Extremity: NT Sensation:? Impaired in B UE as to light touch and pain Bed Mobility/Transfers: Supine-sit: NT Sit-stand: NT Stand-sit: NT Gait:? Unable Balance: Static Sitting: NT Dynamic Sitting: NT Static Standing: NT Dynamic Standing: NT Special Tests: Mobility Limitations Standardized Measure [facility] AM-PAC 6 clicks Basic Mobility Inpatient Short Form: Raw Score:?6 ? CMS Score:?100% deficit Informed Consent/Education: Patient was instructed in purpose of PT consult and plan of care. Agreeable to proceed with established PT POC to achieve personal goals. ASSESSMENT: Significantly limited by intermittent B LE spasms that bring pain level to 8/10 at rest. Will coordinate with Nurse Tri for premedication prior to mobility assessment this afternoonn. Paraparetic from myasthenia gravis of 30 years, spinal stenosis,? and previous CVA.? Wheelchair bound and receives needed assistance at home.? May benefit from the use of hopsital bed to allow more independence with bed mobility and transfers.? Patient presents with clinical signs and symptoms consistent with current/admitting diagnoses that have resulted to mobility limitations, gait instability, generalized weakness, and overall ADL decline as demonstrated by the following impairment level findings: 1.? Decreased strength to B LE? major muscle groups 2.? Impaired sitting balance 3.? Impaired activity tolerance 4.? Limitation of joint range of motion in L hand, B UE joints 5.? Wheelchair bound 6.? Pain in L UE 7. Intermittent spasms in B LE with L<<R Impairments are contributing to the following functional limitations: 1.? Decline in bed mobility skills 2.? Decline in transfer skills 3.? Difficulty with ambulation without assistive device and physical assistance 4.? Increased completion time for mobility ADL performance 5.? Increased risk for falls 6.? Difficulty with managing steps alone safely Patient is assessed as a 99099 high complexity based on the following: History: 67-year-old female with past medical history as indicated above Examination: Demonstrable impairment in strength, balance, and mobility level with underlying impairments and functional limitations as exhibited above as well as deficit score of 100% utilizing the [facility] Mobility Inpatient Short Form Presentation: Evolving Decision Makin high complexity Goals: Goals X1 week 1. Supine-Sit? independent 2. Sit-Supine? independent 3. Sit-squat independent after set up of wheelchair 4. Squat to sit ? independent after set up of wheelchair 5. Wheelchair propulsion independent Plan of Care/Treatment Plan: 1-2x/day, 7 days/week x 1 week. Plan of care has been reviewed with the CLINICAL TEAM MANAGER providing the service under Physical Therapy direction. Initiate Physical Therapy intervention for strengthening, bed mobility, transfers, gait, stairs, balance training, use of assistive device. DISCHARGE RECOMMENDATIONS: [] ? Home with no services [] [] ? Home with services [] [] ? Home with outpatient PT [] [X] ? SNF for continued rehabilitation. Patient will benefit from alf facility placement for continued skilled physical therapy services in order to progress mobility level, strength, and balance in preparation for a safe discharge to home. [] ? Banquet Supervisor Care [] [] ? SNF versus LTC based on ability to participate and progress [] [X] SNF vs. PT based on progress towards goals TREATMENT CODE/TIME: 73226 x 22 minutes beginning at 11:44 AM. Thank you for the opportunity to participate in the care of this patient. Ching Viveros PT, DPT, CLT [facility], [place]
[2022-09-27] MEDS: Ketorolac 30 MG/ML VIAL IVP ×2 (12:26→20:58)
--- NOTE | 2022-09-27 16:20 | PT.INTREAT ---
Date of service: 09/27/22 Time of Service: 15:45 PT Notes Visit Reasons: Closed Left Distal Femur Fracture Inpatient Physical Therapy Treatment Note Date: 09/27/2022 Precautions: Standard.??Per orthopod order:? Keep L knee in extension using knee immobilizer when OOB.? NWB on the L LE with AD.? Paraparetic,? wheelchair-bound.? Subjective: Feels much better after lunch with intake of Toradol. Agreeable to transferring to the wheelchair using the slide board. Objective: General inspection:? Seated on wheelchair Mental Status: Alert and oriented x 4 Pain: 2-3/10 in the L knee Bed Mobility/Transfers: Bed to wheelchair assist of 2 for safety using slide board, ensure L knee is in extension throughout transfer Wheelchair to bed assist of 2 for safety using slide board, ensure L knee is in extension throughout transfer Gait:? Unable Balance: Static Sitting: Good Dynamic Sitting: Fair Static Standing: Unable due to WB precaution and weakness Dynamic Standing: Unable due to WB precaution and weakness ASSESSMENT: Patient responded well to Toradol and is willing to try out transferring to the wheelchair after lunch. Attempted sit>stand from edge of bed x 2 but patient is unable to follow NWB in the L LE, is too weak to bring self up and is unable to extend trunk in standing. Slide board transfer proved to be a safe alternative to prevent undue weight bearing on the L LE. Wheelchair should be positioned such that the R good LE is leading for all bed<>wheelchair transfer. Use white holly to help patient move on slide board with the least friction to mainatin skin integrity of the gluteal/sacral area. Will benefit from OT evaluation for L UE use and self-care management. DISCHARGE RECOMMENDATIONS: [] ? Home with no services [] [] ? Home with services [] [] ? Home with outpatient PT [] [X] ? SNF for continued rehabilitation.? Patient will benefit from longterm facility placement for continued skilled physical therapy services in order to progress mobility level, strength, and balance in preparation for a safe discharge to home. [] ? Liquid Floor And Wall Applier Care [] [] ? SNF versus LTC based on ability to participate and progress [] [X]? SNF vs.? PT based on progress towards goals DME recommendations: 1. Hospital bed to allow for more independent bed mobility and transfers 2. Properly fitting wheelchair with: - swing away/removable armrests for slide board transfers as needed - elevating leg rests to allow for full extension of L knee at all times per orthopod order - back anti-tippers - proper gel seat cushion to minimize skin breakdown TREATMENT CODE/TIME: 30140 x 39 minutes beginning at 12:55 PM and 15:45 PM.
--- NOTE | 2022-09-27 16:54 | W.PM.PROGNOT ---
Date of Service Date of service: 09/27/22 Time of Service: 11:00 Assessment and Plan Assessment and plan (1) Closed fracture of left distal femur: Status: Acute Assessment and plan: 67 year old female with Left intra-articular minimally displaced distal femur fx after a fall at assisted living facility where she lives Left knee immobilizer Thigh compartments soft. Moderate knee effusion. Sensation intact throughout to light touch. Imaging shows extremely poor bone quality OPTICAL LAB TECHNICIAN review recommends anesthesia at tertiary care facility if possible. [facility] orthopedics Dr. Mckeon refused transfer last night and advised treatment with knee immobilizer. Trial of nonoperative management. While patient is resting in bed and not repositioning or moving, knee immobilizer should be opened up or at least loosened to reduce pressure on skin and chance of skin breakdown. Knee immobilizer should be relatively snug during repositioning and while out of bed. Maintain knee straight in full extension for 4 weeks. Non-weight bearing left lower extremity about 6-8 weeks. Replace soft roll padding and/or Elvis bandage as needed to protect skin from knee immobilizer. Follow-up with trauma job service specialist Dr. Alok Byrd at [facility] in about 1 week. (2) Frequent falls: Status: Chronic Assessment and plan: She is not having a surgical repair, she will be managed medically; patient has PT and OT ordered; plan for her to go to SNF when available PT / OT ordered (3) Hypertension: Status: Chronic Assessment and plan: Patient will continue outpatient antihypertensives SBP 110s (4) Myasthenia gravis: Status: Chronic Assessment and plan: Continue outpatient medical therapy (5) Neuropathic pain of both legs: Status: Chronic Assessment and plan: Continue fentanyl patch and gabapentin as per outpatient dosing. (6) Spinal stenosis: Assessment and plan: With chronic pain and paraplegia. Physical therapy (7) GERD (gastroesophageal reflux disease): Status: Chronic Assessment and plan: Continue PPI. (8) Neurogenic bladder: Status: Chronic Assessment and plan: With history of frequent UTIs, urinalysis done - negative (9) Pain: Status: Acute Assessment and plan: Ketorelac is working well for her pain; will continue Fentanyl patch 75 mcg change every 72 hours - chronic home med Dilaudid IV PRN (10) Constipation, chronic: Status: Chronic Assessment and plan: Bowel meds ordered scheduled (11) Weakness: Status: Acute Assessment and plan: Complete bed rest - PT/OT ordered (12) DVT prophylaxis: Status: Acute Assessment and plan: Enoxaparin 40 mg sc (13) Discharge planning issues: Status: Acute Assessment and plan: SNF when availlable - plan for rehab is 6-8 weeks with no surgical intervention Discussed with Dr Moran Subjective Subjective Patient reports: no new complaints, pain is less, tolerating a regular diet and afebrile; denies diarrhea, nausea or vomiting Exam Const General: cooperative and no acute distress Orientation: alert, awake and oriented x3 HENMT Head: normal to inspection Face and sinus: normal facial exam Eyes General: appearance normal, both eyes and all related structures Pupils: PERRL EOM: EOM intact bilaterally Neck Neck: normal visual inspection and No submandibular swelling Lymphatic: no lymphadenopathy noted Chest Chest: normal inspection of the chest and no tenderness Resp Effort & Inspection: normal respiratory effort and able to speak in complete sentences Auscultation: clear to auscultation bilaterally Cardio Rate: regular rate Rhythm: regular rhythm GI Inspection: normal to inspection Palpation: soft, not firm, not rigid and nontender Auscultation: normal bowel sounds Back/Spine/Pelvis Thoracic/Lumbar Spine: thoracic and lumbar spine normal to inspection Pelvis: no pain with anterior-posterior compression Skin General skin exam: no rashes or lesions noted Neuro General: patient alert, patient awake and patient oriented x3 Cognition: normal cognition Speech: speech normal Motor: muscle tone normal throughout Sensory Exam: no sensory deficits noted Extrem General: capillary refill normal Psych Appearance: grossly normal Mental Status: mental status grossly normal Speech and Movement: speech and movement normal Affect: normal affect Objective Last Vital Signs Temp 37.5 C 09/27/22 15:41 Pulse 108 H 09/27/22 15:41 Resp 17 09/27/22 15:41 BP 102/79 09/27/22 15:41 Pulse Ox 96 09/27/22 15:41 Laboratory Results - last 24 hr 09/27/22 09/27/22 06:05 06:05 WBC 9.26 RBC 4.28 Hgb 12.0 Hct 37.8 MCV 88 MCH 28.0 MCHC 31.7 L RDW 13.7 Plt Count 264 MPV 10.1 Immature Gran % 0.3 Neutrophils % 80.9 Lymphocytes % 8.4 Monocytes % 10.0 Eosinophils % 0.2 Basophils % 0.2 Nucleated RBC % 0.0 Absolute Neutrophils 7.48 H Absolute Lymphocytes 0.78 L Absolute Monocytes 0.93 H Absolute Eosinophils 0.02 Absolute Basophils 0.02 Sodium 136 Potassium 3.7 Chloride 101 Carbon Dioxide 25.8 Anion Gap 9.2 BUN 20 H Creatinine 1.0 Est GFR (CKD-EPI 2020) 61.75 Glucose 104 Calcium 9.4 Magnesium 1.9 Time Spent with Patient Time Spent with Patient: 35-49 minutes Time was spent: preparing to see the patient(eg.review tests), obtaining and/or reviewing separately otained hiistory, ordering medications,tests, procedures, referring, communicating with other health caretaker grounds, indepentently interpreting results, counseling the patient and care coordination
[2022-09-27] MEDS: Cyclobenzaprine 10 MG TAB 20 MG PO (20:56)
[2022-09-27] MEDS: Docusate Sodium 100 MG CAP PO (20:57)
[2022-09-27] MEDS: Zolpidem 5 MG TAB PO (20:57)
[2022-09-27] MEDS: Patient's Own Medication 1 EACH MISC PO (20:58)
[2022-09-28 03:00] VITALS: BP 102/68; PULSE 87; RESP 16; TEMP 36.5; O2SAT 96
[2022-09-28 06:35] LABS: Abs Immature Grans 0.03 10^3/uL (0.0-0.06); Absolute Basophil Count 0.04 10^3/uL (0.0-0.2); Absolute Eosinophil Count 0.08 10^3/uL (0.0-0.7); Absolute Lymphocyte Count 0.94 10^3/uL (1.2-3.4); Absolute Monocyte Count 0.82 10^3/uL (0.1-0.8); Absolute Neutrophil Count 4.39 10^3/uL (1.2-6.7); Basophils % 0.6; Eosinophils % 1.3; HCT 33.3 % (36.0-46.0); HGB 10.5 g/dL (11.2-15.7); Immature Grans % 0.5; Lymphocytes % 14.9; MCH 28.5 pg (27.0-33.0); MCHC 31.5 % (32.0-36.0); MCV 90 fL (80-95); Neutrophils % 69.7; Platelet Count 228 10^3/uL (130-400); RBC 3.69 10^6/uL (3.93-5.22); RDW 13.9 % (11.7-14.6); RDW-SD 45.7 fL
[2022-09-28 06:55] LABS: Anion Gap 7.7 mmol/L (3-11); BUN 34 mg/dL (7-18); CO2 27.3 mmol/L (21.0-32.0); CREATININE 1.4 mg/dL (0.55-1.02); Calcium 9.2 mg/dL (8.5-10.1); Chloride 104 mmol/L (98-107); Estimated GFR 41.24 (mL/min/1.73m2); Glucose 96 mg/dL (74-106); Magnesium 2.1 mg/dL (1.8-2.4); Potassium 3.5 mmol/L (3.5-5.1); Sodium 139 mmol/L (136-145)
[2022-09-28 07:16] VITALS: BP 108/68; PULSE 88; RESP 16; TEMP 36.8; O2SAT 94
[2022-09-28] MEDS: Acetylcysteine 600 MG CAP 1200 MG PO ×2 (09:42→19:45)
[2022-09-28] MEDS: Docusate Sodium 100 MG CAP PO ×3 (09:43→19:45)
[2022-09-28] MEDS: amLODIPine 2.5 MG TAB 5 MG PO (09:43)
[2022-09-28] MEDS: Enoxaparin 40 MG/0.4 ML SYR SC (09:43)
[2022-09-28] MEDS: fentaNYL 75 MCG PATCH TD (09:44)
[2022-09-28] MEDS: Folic Acid 1 MG TAB PO (09:44)
[2022-09-28] MEDS: Gabapentin 300 MG CAP PO ×2 (09:44→19:45)
[2022-09-28] MEDS: Metoprolol 25 MG TAB PO (09:45)
[2022-09-28] MEDS: Lisinopril 20 MG TAB PO (09:45)
[2022-09-28] MEDS: Polyethylene Glycol 3350 17 GM PACKET PO ×2 (09:46→19:46)
[2022-09-28] MEDS: Ketorolac 30 MG/ML VIAL IVP ×3 (09:46→23:02)
[2022-09-28] MEDS: Pantoprazole 40 MG TABCR PO (09:46)
[2022-09-28] MEDS: Normal Saline Flush 10 ML SYR IVP ×2 (09:47→16:55)
[2022-09-28] MEDS: Methocarbamol 750 MG TAB 1500 MG PO (10:59)
[2022-09-28 11:30] VITALS: BP 117/76; PULSE 74; RESP 16; TEMP 37; O2SAT 95
--- NOTE | 2022-09-28 12:05 | PT.INTREAT ---
Date of service: 09/28/22 Time of Service: 08:16 PT Notes Visit Reasons: Closed Left Distal Femur Fracture Inpatient Physical Therapy Treatment Note [facility] Date: 09/28/2022 PRECAUTIONS: Fall, activity as tolerated, paraparesis, NWB L SUBJECTIVE: Missy is pleasant and agreeable to participating in PT. OBJECTIVE: PAIN: Patient c/o pain in L LE with all movement BED MOBILITY/TRANSFERS Supine-sit: Mod A Sit-supine: Max A x2 Sit-stand: Mod A Stand-sit: Mod A GAIT Assistive Device: Stand-pivot with use of rails, grab bars, wc arms Weight bearing: NWB L Assist: Mod A x3 Distance: Stand-pivot x2 in both a.m. and p.m. Deviation: Global weakness, assist with mobilizing L LE TOILETING: Patient toileted with assist WHEELCHAIR MOBILITY: Patient demonstrates independence with self-propulsion of wc, however, hospital-provided wc is too large for patient, who will likely mobilize easier with her personal wc. ASSESSMENT: Patient tolerated session with complaint of L LE pain with movement. She requires Mod A x3 for all stand-pivot transfers at this time. She demonstrates global weakness and limited activity tolerance. PLAN: Recommend SNF-level placement for continued rehab TREATMENT CODE/TIME: Session 1: 26 minutes; 54474 x2 (08:16) Session 2: 28 minutes; [id number] x2 (10:58)
[2022-09-28] MEDS: Methocarbamol 500 MG TAB 1000 MG PO ×3 (13:25→19:45)
--- NOTE | 2022-09-28 14:17 | PDOC.CMPRO ---
- If Service Date Differs Date of service: 09/28/22 Time of Service: 14:17 Care Management Progress Note S/O: Missy is lying in bed when CM met with her. SNF referrals are still pending. Missy is working with Kacie at [facility] to determine if she is eligible for Medicaid. Per pt, her friend dropped off her financial forms. CM notified Kacie and will continue to follow. A: Missy is a 67 year old woman admitted om 09/25/22 with a fractured femur P:Anticipate Missy will require short term rehab in a SNF before returning home with a resumption of services. CM sent referrals to [facility], [facility], [facility] and [facility] with Missy's approval. CM will continue to follow and assess for ongoing discharge needs.RE
[2022-09-28 15:29] VITALS: BP 102/65; PULSE 72; RESP 16; TEMP 37.2; O2SAT 98
--- NOTE | 2022-09-28 15:36 | PGE_ITS ---
Date of Service Date of service: 09/28/22 Time of Service: 15:37 Assessment and Plan Assessment and plan (1) Closed fracture of left distal femur: Status: Acute Assessment and plan: 67 year old female with Left intra-articular minimally displaced distal femur fx after a fall at assisted living facility where she lives Left knee immobilizer Thigh compartments soft. Moderate knee effusion. Sensation intact throughout to light touch. Non surgical managment with pain mgt and knee immobilizer. Trial of nonoperative management. While patient is resting in bed and not repositioning or moving, knee immobilizer should be opened up or at least loosened to reduce pressure on skin and chance of skin breakdown. Knee immobilizer should be relatively snug during repositioning and while out of bed. Maintain knee straight in full extension for 4 weeks. Non-weight bearing left lower extremity about 6-8 weeks. Replace soft roll padding and/or Elvis bandage as needed to protect skin from knee immobilizer. Follow-up with trauma credit risk specialist Dr. Alok Byrd at [facility] in about 1 week. (2) Frequent falls: Status: Chronic Assessment and plan: She is not having a surgical repair, she will be managed medically; patient has PT and OT ordered; plan for her to go to SNF when available PT / OT ordered (3) Hypertension: Status: Chronic Assessment and plan: Patient will continue outpatient antihypertensives SBP 110s (4) Myasthenia gravis: Status: Chronic Assessment and plan: Continue outpatient medical therapy (5) Neuropathic pain of both legs: Status: Chronic Assessment and plan: Continue fentanyl patch and gabapentin as per outpatient dosing. (6) Spinal stenosis: Assessment and plan: With chronic pain and paraplegia. Physical therapy (7) GERD (gastroesophageal reflux disease): Status: Chronic Assessment and plan: Continue PPI. (8) Neurogenic bladder: Status: Chronic Assessment and plan: With history of frequent UTIs, urinalysis done - negative (9) Pain: Status: Acute Assessment and plan: Ketorelac is working well for her pain; will continue Fentanyl patch 75 mcg change every 72 hours - chronic home med Dilaudid IV PRN Spasm - methocarbamol prn (10) Constipation, chronic: Status: Chronic Assessment and plan: Bowel meds ordered scheduled Last BM 09/23 - Relistor added (11) Weakness: Status: Acute Assessment and plan: Complete bed rest - PT/OT ordered (12) DVT prophylaxis: Status: Acute Assessment and plan: Enoxaparin 40 mg sc (13) Discharge planning issues: Status: Acute Assessment and plan: SNF when availlable - plan for rehab is 6-8 weeks with no surgical intervention Discussed with Dr Moran Subjective Subjective Patient reports: no new complaints, pain is less, bowel movement and afebrile; denies diarrhea, nausea or vomiting Interval history since last seen: Resting comfortably - reports some cramping in her legs and flexaril is not helping, otherwise states she is feeling better overall and pain is manageable at the current level. Exam Const General: cooperative and no acute distress Orientation: alert, awake and oriented x3 HENMT Head: normal to inspection Face and sinus: normal facial exam Eyes General: appearance normal, both eyes and all related structures Pupils: PERRL EOM: EOM intact bilaterally Neck Neck: normal visual inspection and No submandibular swelling Lymphatic: no lymphadenopathy noted Chest Chest: normal inspection of the chest and no tenderness Resp Effort & Inspection: normal respiratory effort and able to speak in complete sen tences Auscultation: clear to auscultation bilaterally Cardio Rate: regular rate Rhythm: regular rhythm GI Inspection: normal to inspection Palpation: soft, not firm, not rigid and nontender Auscultation: normal bowel sounds Back/Spine/Pelvis Thoracic/Lumbar Spine: thoracic and lumbar spine normal to inspection Pelvis: no pain with anterior-posterior compression Skin General skin exam: no rashes or lesions noted Neuro General: patient alert, patient awake and patient oriented x3 Cognition: normal cognition Speech: speech normal Motor: muscle tone normal throughout Sensory Exam: no sensory deficits noted Extrem General: capillary refill normal Right upper extremity: normal to inspection Left upper extremity: normal to inspection Right lower extremity: normal to inspection Left lower extremity: normal to inspection (knee immobilizer in place) and normal capillary refill Psych Appearance: grossly normal Mental Status: mental status grossly normal Speech and Movement: speech and movement normal Affect: normal affect Objective Last Vital Signs Temp 37.2 C 09/28/22 15:29 Pulse 72 09/28/22 15:29 Resp 16 09/28/22 15:29 BP 102/65 09/28/22 15:29 Pulse Ox 98 09/28/22 15:29 Laboratory Results - last 24 hr 09/28/22 09/28/22 06:09 06:09 WBC 6.30 RBC 3.69 L Hgb 10.5 L Hct 33.3 L MCV 90 MCH 28.5 MCHC 31.5 L RDW 13.9 Plt Count 228 MPV 10.0 Immature Gran % 0.5 Neutrophils % 69.7 Lymphocytes % 14.9 Monocytes % 13.0 Eosinophils % 1.3 Basophils % 0.6 Nucleated RBC % 0.0 Absolute Neutrophils 4.39 Absolute Lymphocytes 0.94 L Absolute Monocytes 0.82 H Absolute Eosinophils 0.08 Absolute Basophils 0.04 Sodium 139 Potassium 3.5 Chloride 104 Carbon Dioxide 27.3 Anion Gap 7.7 BUN 34 H Creatinine 1.4 H Est GFR (CKD-EPI 2020) 41.24 Glucose 96 Calcium 9.2 Magnesium 2.1 Reviewed Pertinent PMH: Yes Time Spent with Patient Time Spent with Patient: 35-49 minutes Time was spent: preparing to see the patient(eg.review tests), obtaining and/or reviewing separately otained hiistory, ordering medications,tests, procedures, referring, communicating with other health personal care service provider, indepentently interpreting results, counseling the patient and care coordination
--- NOTE | 2022-09-28 15:41 | CHAPLAIN ---
Missy was in bed resting when I visited. She told me about her fall, while transferring from her bed to her wheelchair, and breaking her femur. It's been decided to treat it non-surgically. She will have to keep her knee out straight for four weeks, and be non-weight baring for 6 to 8 weeks. Missy lives alone at the [facility], with no family around. A friend, Nina Trinidad helps Missy and is also a paid caregiver. Care Management has applied to a few places for rehab for Missy before she goes home. Missy and I remembered each other from a previous admission of hers. She remains pleasant and said she feels like staff here are family to her.
[2022-09-28] MEDS: Milk of Magnesia 30 ML CUP PO (16:53)
[2022-09-28 19:40] VITALS: BP 94/59; PULSE 82; RESP 16; TEMP 36.9; O2SAT 98
[2022-09-28] MEDS: Methylnaltrexone 12 MG/0.6 ML VIAL 8 MG SC (19:46)
[2022-09-28] MEDS: Patient's Own Medication 1 EACH MISC PO (19:51)
[2022-09-28] MEDS: Zolpidem 5 MG TAB PO (21:17)
[2022-09-28] MEDS: Acetaminophen 325 MG TAB PO (21:17)
[2022-09-28] MEDS: Cyclobenzaprine 10 MG TAB 20 MG PO (21:17)
[2022-09-28] MEDS: HYDROmorphone 2 MG/ML SYR IVP (21:35)
[2022-09-29] MEDS: HYDROmorphone 2 MG/ML SYR IVP ×2 (01:35→18:12)
[2022-09-29 01:43] VITALS: BP 96/56; PULSE 88; RESP 16; TEMP 36.5; O2SAT 98
[2022-09-29 07:29] LABS: Abs Immature Grans 0.03 10^3/uL (0.0-0.06); Absolute Basophil Count 0.04 10^3/uL (0.0-0.2); Absolute Eosinophil Count 0.16 10^3/uL (0.0-0.7); Absolute Lymphocyte Count 1.16 10^3/uL (1.2-3.4); Absolute Monocyte Count 0.89 10^3/uL (0.1-0.8); Absolute Neutrophil Count 6.43 10^3/uL (1.2-6.7); Basophils % 0.5; Eosinophils % 1.8; HCT 32.6 % (36.0-46.0); HGB 10.7 g/dL (11.2-15.7); Immature Grans % 0.3; Lymphocytes % 13.3; MCH 29.1 pg (27.0-33.0); MCHC 32.8 % (32.0-36.0); MCV 89 fL (80-95); MPV 10.3 fL (8.0-11.0); Monocytes % 10.2; Neutrophils % 73.9; Platelet Count 267 10^3/uL (130-400); RBC 3.68 10^6/uL (3.93-5.22); RDW 13.9 % (11.7-14.6); RDW-SD 45.1 fL; WBC 8.71 10^3/uL (4.4-10.8)
[2022-09-29 07:32] VITALS: BP 94/60; PULSE 93; RESP 16; TEMP 36.3; O2SAT 94
[2022-09-29 08:04] LABS: BUN 38 mg/dL (7-18); CREATININE 1.7 mg/dL (0.55-1.02); Calcium 9.3 mg/dL (8.5-10.1); Chloride 102 mmol/L (98-107); Estimated GFR 32.66 (mL/min/1.73m2); Glucose 96 mg/dL (74-106); Magnesium 2.7 mg/dL (1.8-2.4); Sodium 138 mmol/L (136-145)
[2022-09-29] MEDS: Methocarbamol 500 MG TAB 1000 MG PO ×4 (09:14→19:09)
[2022-09-29] MEDS: Docusate Sodium 100 MG CAP PO ×3 (09:14→19:33)
[2022-09-29] MEDS: Gabapentin 300 MG CAP PO ×2 (09:14→19:09)
[2022-09-29] MEDS: Polyethylene Glycol 3350 17 GM PACKET PO ×2 (09:15→19:10)
[2022-09-29] MEDS: Folic Acid 1 MG TAB PO (09:15)
[2022-09-29] MEDS: Enoxaparin 40 MG/0.4 ML SYR SC (09:15)
[2022-09-29] MEDS: Acetylcysteine 600 MG CAP 1200 MG PO ×2 (09:15→19:09)
[2022-09-29] MEDS: Normal Saline Flush 10 ML SYR IVP ×4 (09:21→22:09)
[2022-09-29] MEDS: Ketorolac 30 MG/ML VIAL IVP ×3 (09:21→22:09)
--- NOTE | 2022-09-29 09:50 | PDOC.CMPRO ---
- If Service Date Differs Date of service: 09/29/22 Time of Service: 09:50 Care Management Progress Note S/O:Missy was sitting up in bed when CM met with her. She informed CM that she is really tired today and would prefer to stay in bed. As the conversation continued, Missy admitted that part of the reason she is reluctant to get OOB is that she is afraid she will do something to hurt herself. She stated that when she went home the last time she was in the hospital she was afraid to self transfer for quite a while, also because she was afraid. She explained that after a time she was able to get past the fear and began getting up to her chair daily as she had done before. Missy is scheduled to meet with Kacie from [facility] this afternoon to discuss the possibility of getting Medicaid. Her lack of a Medicare supplement has been a barrier to her receiving a bed offer from any facilities. Any SNF stay would only be paid at 100% for 20 days then Missy would be responsible for 20% of the daily rate, which she cannot afford. Missy also has Financial [employer] 100% which will help with her [facility] expenses. A: Missy is a 67 year old woman admitted om 09/25/22 with a fractured femur P:Anticipate Missy will require short term rehab in a SNF before returning home with a resumption of services. CM sent referrals to [facility], [facility], [facility] and [facility] with Missy's approval. CM will continue to follow and assess for ongoing discharge needs.
[2022-09-29] MEDS: Lidocaine 5% Patch TP (10:07)
[2022-09-29] MEDS: Pantoprazole 40 MG TABCR PO (10:12)
[2022-09-29 11:55] VITALS: BP 103/60; PULSE 85; RESP 16; TEMP 37.1; O2SAT 100
[2022-09-29] MEDS: Milk of Magnesia 30 ML CUP PO (13:48)
--- NOTE | 2022-09-29 15:07 | PT.INTREAT ---
Date of service: 09/29/22 Time of Service: 14:40 PT Notes Visit Reasons: Closed Left Distal Femur Fracture Inpatient Physical Therapy Treatment Note [facility] Date: 09/29/2022 PRECAUTIONS: Activity as tolerated, paraparesis, NWB L SUBJECTIVE: Missy is pleasant, stating that she does not want to get out of bed both this morning and this afternoon. She is agreeable to participating in a global therex program. OBJECTIVE: PAIN: Patient c/o L LE pain with movement and with ankle pumps BED MOBILITY/TRANSFERS: Patient declined THEREX: Patient was instructed in a global strengthening and stabilization program, completed in a supine position, to include: Ankle pumps x10 Quad (R only) and glute sets x10 Heel slides (R only) x10 with moderate assist Hip abduction (R only) x10 with minimal assist Bicep curls with 1# x20 Shoulder protraction/punch ups with 1# x10 Shoulder flexion with 1# x10 PPT x10 Modified sit up with 1# x10 Modified diagonal crunch with 1# x10 each L/R ASSESSMENT: Patient demonstrates global weakness, which limits her ability to complete transfers and bed mobility without assist x3 people. PLAN: Continue with global strengthening, bed mobility and transfer training for improved ability to perform daily functional tasks. TREATMENT CODE/TIME: Session 1: Refused Session 2: 25 minutes; [id number] x2 (14:00)
[2022-09-29 15:25] VITALS: BP 119/75; PULSE 88; RESP 16; TEMP 37.3; O2SAT 95
[2022-09-29] MEDS: Ondansetron O.D.T. 4 MG TABEF PO (15:45)
--- NOTE | 2022-09-29 18:54 | W.PM.PROGNOT ---
Date of Service Date of service: 09/29/22 Time of Service: 12:00 Assessment and Plan Assessment and plan (1) Closed fracture of left distal femur: Status: Acute Assessment and plan: 67 year old female with Left intra-articular minimally displaced distal femur fx after a fall at assisted living facility where she lives Left knee immobilizer Thigh compartments soft. Moderate knee effusion. Sensation intact throughout to light touch. Non surgical managment with pain mgt and knee immobilizer. Trial of nonoperative management. While patient is resting in bed and not repositioning or moving, knee immobilizer should be opened up or at least loosened to reduce pressure on skin and chance of skin breakdown. Knee immobilizer should be relatively snug during repositioning and while out of bed. Maintain knee straight in full extension for 4 weeks. Non-weight bearing left lower extremity about 6-8 weeks. Replace soft roll padding and/or Elvis bandage as needed to protect skin from knee immobilizer. Follow-up with trauma cardiovascular invasive specialist Dr. Alok Byrd at [facility] in about 1 week. (2) Frequent falls: Status: Chronic Assessment and plan: She is not having a surgical repair, she will be managed medically; patient has PT and OT ordered; plan for her to go to SNF when available PT / OT ordered (3) Hypertension: Status: Chronic Assessment and plan: Patient will continue outpatient antihypertensives SBP 110s (4) Myasthenia gravis: Status: Chronic Assessment and plan: Continue outpatient medical therapy (5) Neuropathic pain of both legs: Status: Chronic Assessment and plan: Continue fentanyl patch and gabapentin as per outpatient dosing. (6) Spinal stenosis: Assessment and plan: With chronic pain and paraplegia. Physical therapy (7) GERD (gastroesophageal reflux disease): Status: Chronic Assessment and plan: Continue PPI. (8) Neurogenic bladder: Status: Chronic Assessment and plan: With history of frequent UTIs, urinalysis done - negative (9) Pain: Status: Acute Assessment and plan: Ketorelac is working well for her pain; will continue Fentanyl patch 75 mcg change every 72 hours - chronic home med Dilaudid IV PRN Spasm - methocarbamol prn is helping (10) Constipation, chronic: Status: Chronic Assessment and plan: Bowel meds ordered scheduled Last BM 09/23 - 09/28Relistor added; 09/29 - only one small BM, enema PRN (11) Weakness: Status: Acute Assessment and plan: Complete bed rest - PT/OT ordered (12) DVT prophylaxis: Status: Acute Assessment and plan: Enoxaparin 40 mg sc (13) Discharge planning issues: Status: Acute Assessment and plan: SNF when availlable - plan for rehab is 6-8 weeks with no surgical intervention Discussed with Dr Hsieh Subjective Subjective Patient reports: no new complaints, feels better, pain is less, tolerating a regular diet, bowel movement and afebrile; denies diarrhea or vomiting Exam Const General: cooperative and no acute distress Orientation: alert, awake and oriented x3 HENMT Head: normal to inspection Face and sinus: normal facial exam Eyes General: appearance normal, both eyes and all related structures Pupils: PERRL EOM: EOM intact bilaterally Neck Neck: normal visual inspection and No submandibular swelling Lymphatic: no lymphadenopathy noted Chest Chest: normal inspection of the chest and no tenderness Resp Effort & Inspection: normal respiratory effort and able to speak in complete sentences Auscultation: clear to auscultation bilaterally Cardio Rate: regular rate Rhythm: regular rhythm GI Inspection: normal to inspection Palpation: soft, not firm, not rigid and nontender Auscultation: normal bowel sounds Back/Spine/Pelvis Thoracic/Lumbar Spine: thoracic and lumbar spine normal to inspection Pelvis: no pain with anterior-posterior compression Skin General skin exam: no rashes or lesions noted Neuro General: patient alert, patient awake and patient oriented x3 Cognition: normal cognition Speech: speech normal Motor: muscle tone normal throughout Sensory Exam: no sensory deficits noted Extrem General: capillary refill normal Right upper extremity: normal to inspection Left upper extremity: normal to inspection Right lower extremity: normal to inspection Left lower extremity: normal to inspection (knee immobilizer in place) and normal capillary refill Psych Appearance: grossly normal Mental Status: mental status grossly normal Speech and Movement: speech and movement normal Affect: normal affect Objective Last Vital Signs Temp 37.3 C 09/29/22 15:25 Pulse 88 09/29/22 15:25 Resp 16 09/29/22 15:25 BP 119/75 09/29/22 15:25 Pulse Ox 95 09/29/22 15:25 Laboratory Results - last 24 hr 09/29/22 09/29/22 06:35 06:35 WBC 8.71 RBC 3.68 L Hgb 10.7 L Hct 32.6 L MCV 89 MCH 29.1 MCHC 32.8 RDW 13.9 Plt Count 267 MPV 10.3 Immature Gran % 0.3 Neutrophils % 73.9 Lymphocytes % 13.3 Monocytes % 10.2 Eosinophils % 1.8 Basophils % 0.5 Nucleated RBC % 0.0 Absolute Neutrophils 6.43 Absolute Lymphocytes 1.16 L Absolute Monocytes 0.89 H Absolute Eosinophils 0.16 Absolute Basophils 0.04 Sodium 138 Potassium 4.0 Chloride 102 Carbon Dioxide 28.0 Anion Gap 8.0 BUN 38 H Creatinine 1.7 H Est GFR (CKD-EPI 2020) 32.66 Glucose 96 Calcium 9.3 Magnesium 2.7 H Time Spent with Patient Time Spent with Patient: 35-49 minutes Time was spent: preparing to see the patient(eg.review tests), obtaining and/or reviewing separately otained hiistory, ordering medications,tests, procedures, referring, communicating with other health healthcare risk control consultant, indepentently interpreting results, counseling the patient and care coordination
[2022-09-29 19:30] VITALS: BP 111/70; PULSE 87; RESP 20; TEMP 37.3; O2SAT 95
[2022-09-29] MEDS: Senna TAB 1 TAB PO ×2 (19:33→19:34)
[2022-09-29] MEDS: Metoprolol 25 MG TAB PO (19:34)
[2022-09-29] MEDS: Bisacodyl 10 MG SUPP PR (19:35)
[2022-09-29] MEDS: Zolpidem 5 MG TAB PO (22:09)
[2022-09-29] MEDS: Cyclobenzaprine 10 MG TAB 20 MG PO (22:10)
[2022-09-29 23:02] VITALS: BP 96/61; PULSE 78; RESP 14; TEMP 37.1; O2SAT 93
--- NOTE | 2022-09-30 | DI.RAD_ITS ---
Exam(s) XR KNEE LT 2V AP,LAT EXAM: XR KNEE LT 2V AP,LAT CLINICAL HISTORY: Distal femur fracture. TECHNIQUE: 2D digital imaging was performed. COMPARISON: CR,XR XR KNEE LT 3V AP,LAT,RONDA from 09/25/2022 FINDINGS: Previously described distal femur fracture lines are again noted and there is a prominent. The fract ure lines appears slightly wider than previous although this may be projectional. Fracture line agai n noted to extend into the joint space at the intercondylar notch region. No evidence of tibial plat eau fracture on the fibular head and neck appear unremarkable. IMPRESSION: Distal femur fracture lines as described above. Large joint effusion-hemarthrosis again noted. DATA REPOSITORY: RADIATION DOSE DELIVERED:
[2022-09-30 03:45] VITALS: BP 104/64; PULSE 73; RESP 16; TEMP 36.5; O2SAT 94
[2022-09-30 06:49] LABS: Abs Immature Grans 0.04 10^3/uL (0.0-0.06); Absolute Basophil Count 0.03 10^3/uL (0.0-0.2); Absolute Eosinophil Count 0.21 10^3/uL (0.0-0.7); Absolute Lymphocyte Count 0.82 10^3/uL (1.2-3.4); Absolute Monocyte Count 1.03 10^3/uL (0.1-0.8); Absolute Neutrophil Count 8.21 10^3/uL (1.2-6.7); Basophils % 0.3; HCT 31.7 % (36.0-46.0); HGB 10.1 g/dL (11.2-15.7); Immature Grans % 0.4; Lymphocytes % 7.9; MCH 28.5 pg (27.0-33.0); MCHC 31.9 % (32.0-36.0); MCV 89 fL (80-95); MPV 9.9 fL (8.0-11.0); Neutrophils % 79.4; Platelet Count 259 10^3/uL (130-400); RBC 3.55 10^6/uL (3.93-5.22); RDW 13.8 % (11.7-14.6); RDW-SD 45.2 fL; WBC 10.34 10^3/uL (4.4-10.8)
[2022-09-30 07:07] LABS: Anion Gap 6.5 mmol/L (3-11); BUN 43 mg/dL (7-18); CO2 25.5 mmol/L (21.0-32.0); CREATININE 1.6 mg/dL (0.55-1.02); Chloride 100 mmol/L (98-107); Estimated GFR 35.13 (mL/min/1.73m2); Glucose 107 mg/dL (74-106); Magnesium 3.4 mg/dL (1.8-2.4); Potassium 4.5 mmol/L (3.5-5.1); Sodium 132 mmol/L (136-145)
[2022-09-30 07:22] VITALS: BP 102/62; PULSE 82; RESP 17; TEMP 36.2; O2SAT 92
[2022-09-30] MEDS: Acetylcysteine 600 MG CAP 1200 MG PO ×2 (09:10→20:08)
[2022-09-30] MEDS: Enoxaparin 40 MG/0.4 ML SYR SC (09:11)
[2022-09-30] MEDS: Docusate Sodium 100 MG CAP PO ×3 (09:11→20:08)
[2022-09-30] MEDS: Folic Acid 1 MG TAB PO (09:11)
[2022-09-30] MEDS: Pantoprazole 40 MG TABCR PO (09:12)
[2022-09-30] MEDS: Gabapentin 300 MG CAP PO ×2 (09:12→20:10)
[2022-09-30] MEDS: Methocarbamol 500 MG TAB 1000 MG PO ×4 (09:12→20:08)
[2022-09-30] MEDS: Polyethylene Glycol 3350 17 GM PACKET PO ×2 (09:14→20:07)
[2022-09-30] MEDS: Senna TAB 1 TAB PO ×2 (09:14→20:07)
[2022-09-30] MEDS: Normal Saline Flush 10 ML SYR IVP ×2 (09:15→15:16)
[2022-09-30] MEDS: Ketorolac 30 MG/ML VIAL IVP (09:15)
--- NOTE | 2022-09-30 09:29 | PDOC.CMPRO ---
- If Service Date Differs Date of service: 09/30/22 Time of Service: 09:29 Care Management Progress Note S/O:Missy was sitting up in bed when CM met with her. She greeted CM warmly and readily engaged in conversation. Missy stated that when she woke up this morning she was tempted to play possum and pretend to be asleep when her breakfast arrived, but thought better about it and ate. Missy had some concerns about her [facility] Financial Assistance. CM was able to verify that she has Financial Assist 100 and that it will be effective until 01/12/23. Missy shared that whenever she needs to be hospitalized at [facility], she feels like she is coming home. She stated that all of the staff treat her like they truly care about her. A: Missy is a 67 year old woman admitted om 09/25/22 with a fractured femur P: Missy would benefit from short term rehab in a long term facility but not having a Medicare supplement has been a barrier. Referrals were sent to several facilities who declined to offer her a bed, citing lack of a payer source as the reason. CM sent a referral to [facility] to explore the possibility of Missy getting Medicaid. The application has been submitted but it is unknown when a response will be received. It is likely that Missy will be transitioned to SB-1 for the 6-8 weeks of immobility that she requires. CM will continue to support Missy and assess for ongoing discharge concerns.
[2022-09-30 11:04] VITALS: BP 102/66; PULSE 71; RESP 16; TEMP 36.7; O2SAT 92
[2022-09-30] MEDS: oxyCODONE 5 MG TAB PO (11:13)
[2022-09-30] MEDS: Ondansetron O.D.T. 4 MG TABEF PO ×2 (12:34→20:10)
[2022-09-30] MEDS: Acetaminophen 325 MG TAB 650 MG PO ×3 (12:34→20:11)
[2022-09-30] MEDS: fentaNYL 100 MCG PATCH TD (12:35)
--- NOTE | 2022-09-30 13:53 | PTTR_ITS ---
Date of service: 09/30/22 Time of Service: 13:05 PT Notes Visit Reasons: Closed Left Distal Femur Fracture Inpatient Physical Therapy Treatment Note Date: 09/30/2022 Precautions: Standard.??Per orthopod order:? Keep L knee in extension using knee immobilizer when OOB.? NWB on the L LE with AD.???Paraparetic,? wheelchair-bound.? Subjective: Per Nurse Bartlett, patient has responsed well to Robaxin and has helped with her spasms. Patient is agreeable to trying new transfer technique, thrilled that she does not need to use the slide board anymore. Objective: General inspection:? Seated on wheelchair Mental Status: Alert and oriented x 4 Pain: 2-3/10 in the L knee Bed Mobility/Transfers: Bed to wheelchair assist of 2 for safety using backward technique ensure L knee is in extension throughout transfer Wheelchair to bed assist of 2 for safety using forward technique,? ensure L knee is in extension throughout transfer THERA EX: Mini chair push ups while doing forward-backward transfer and while seated on wheelchair for 5 reps each time. Ankle DF/PF x 20 Heel slide with R LE x 5 Balance: Static Sitting: Good Dynamic Sitting: Fair Static Standing: Unable due to WB precaution and weakness Dynamic Standing: Unable due to WB precaution and weakness ASSESSMENT: Patient required more assistance with forward transfer compared to backward transfer. She will benefit more from continued trunk stabilization and B UE strengthening to improve independence with transfer technique recommended. Trialled forward-backward technique for bed<>wheelchair transfer today with assist of Nurse Bartlett in the morning and with just this PT in the afternoon. 1. Patient is assisted so that her back is close to the edge of the bed 2. Another caregiver positions the wheelchair perpendicular to the bed, as close to the edge as possible. Be sure that breaks are ON. 3. Pillow is placed over the gap in between edge of bed and front edge of wheelchair seat for safety. 4. Use draw sheet/white holly to slowly help patient scoot back into wheelchair as you instrcujt patient to slowly pish with B hands down against bed to lift pelvis and scoot back. 5. Repeat the process until patient is safely on the wheelchair. 6. For wheelchair to bed transfer, do the reverse with the help of two caregivers for safety. Ensure that patient contributes to the transfer by using B hands to push pelvis up and scoot forward or backward. DISCHARGE RECOMMENDATIONS: [] ? Home with no services [] [] ? Home with services [] [] ? Home with outpatient PT [] [X] ? SNF for continued rehabilitation.? Patient will benefit from longterm facility placement for continued skilled physical therapy services in order to progress mobility level, strength, and balance in preparation for a safe discharge to home. [] ? [facility] [] [] ? SNF versus LTC based on ability to participate and progress [] [X]? SNF vs.? HH PT based on progress towards goals DME recommendations: 1.??Hospital bed?to allow for more independent bed mobility and transfers 2.? Properly fitting?wheelchair?with: -?swing away/removable armrests?for slide board transfers as needed -?elevating leg rests?to allow for full extension of L knee at all times per orthopod order - hand rim toggle on the L side - feet positioner to prevent plantarflexion contracture progression - back anti-tippers - proper??gel seat cushion?to minimize skin breakdown TREATMENT CODE/TIME: Session 1-- [id number] x 20 minutes, [id number] x 16 minutes beginning at 11:17 AM. Session2--[id number] x 29 minutes beginning at 13:05 PM.
[2022-09-30] MEDS: Ketorolac 15 MG/ML VIAL IVP (15:16)
[2022-09-30 15:25] VITALS: BP 121/73; PULSE 76; RESP 18; TEMP 36.6; O2SAT 97
--- NOTE | 2022-09-30 16:08 | PGE_ITS ---
Date of Service Date of service: 09/30/22 Time of Service: 16:08 Assessment and Plan Assessment and plan (1) Closed fracture of left distal femur: Status: Acute Assessment and plan: 67 year old female with Left intra-articular minimally displaced distal femur fx after a fall at assisted living facility where she lives Left knee immobilizer Thigh compartments soft. Moderate knee effusion. Sensation intact throughout to light touch. Non surgical managment with pain mgt and knee immobilizer. Trial of nonoperative management. While patient is resting in bed and not repositioning or moving, knee immobilizer should be opened up or at least loosened to reduce pressure on skin and chance of skin breakdown. Knee immobilizer should be relatively snug during repositioning and while out of bed. Maintain knee straight in full extension for 4 weeks. Non-weight bearing left lower extremity about 6-8 weeks. Replace soft roll padding and/or Elvis bandage as needed to protect skin from knee immobilizer. Follow-up with trauma ux specialist Dr. Alok Byrd at [facility] in about 1 week. (2) Hypertension: Status: Chronic Assessment and plan: blood pressures have been soft with several readings in 90-100 systolic. will decrease amlodipine to home dose of 2.5mg, will decrease lisinopril to 10 mg daily she has started on metroprolol, dose will be reduced as well continue to monitor blood pressure and adjust meds as needed. (3) Myasthenia gravis: Status: Chronic Assessment and plan: Continue outpatient medical therapy (4) Spinal stenosis: Assessment and plan: With chronic pain and paraplegia. Physical therapy (5) GERD (gastroesophageal reflux disease): Status: Chronic Assessment and plan: Continue PPI. (6) Neurogenic bladder: Status: Chronic Assessment and plan: With history of frequent UTIs, urinalysis done - negative (7) Pain: Status: Acute Assessment and plan: Ketorelac is working well for her pain; will continue Fentanyl patch 75 mcg change every 72 hours - chronic home med Dilaudid IV PRN Spasm - methocarbamol prn is helping (8) Constipation, chronic: Status: Chronic Assessment and plan: Bowel meds ordered scheduled Last BM 09/23 - 09/28Relistor added; 09/29 - only one small BM, enema PRN (9) DVT prophylaxis: Status: Acute Assessment and plan: Enoxaparin 40 mg sc (10) Discharge planning issues: Status: Acute Assessment and plan: SNF when availlable - plan for rehab is 6-8 weeks with no surgical intervention Discussed with Dr Hsieh Subjective Subjective Patient reports: no new complaints, still having pain, tolerating liquids well, tolerating a regular diet, no bowel movement and afebrile; denies shortness of breath Exam Const General: cooperative and no acute distress Orientation: alert, awake and oriented x3 HENMT Head: normal to inspection Face and sinus: normal facial exam Eyes General: appearance normal, both eyes and all related structures Pupils: PERRL EOM: EOM intact bilaterally Neck Neck: normal visual inspection and No submandibular swelling Lymphatic: no lymphadenopathy noted Chest Chest: normal inspection of the chest and no tenderness Resp Effort & Inspection: normal respiratory effort and able to speak in complete sentences Auscultation: clear to auscultation bilaterally Cardio Rate: regular rate Rhythm: regular rhythm GI Inspection: normal to inspection Palpation: soft, not firm, not rigid and nontender Auscultation: normal bowel sounds Back/Spine/Pelvis Thoracic/Lumbar Spine: thoracic and lumbar spine normal to inspection Pelvis: no pain with anterior-posterior compression Skin General skin exam: no rashes or lesions noted Neuro General: patient alert, patient awake and patient oriented x3 Cognition: normal cognition Speech: speech normal Motor: muscle tone normal throughout Sensory Exam: no sensory deficits noted Extrem General: capillary refill normal Right upper extremity: normal to inspection Left upper extremity: normal to inspection Right lower extremity: normal to inspection Left lower extremity: normal to inspection (knee immobilizer in place) and normal capillary refill Psych Appearance: grossly normal Mental Status: mental status grossly normal Speech and Movement: speech and movement normal Affect: normal affect Objective Last Vital Signs Temp 36.6 C 09/30/22 15:25 Pulse 76 09/30/22 15:25 Resp 18 09/30/22 15:25 BP 121/73 09/30/22 15:25 Pulse Ox 97 09/30/22 15:25 Laboratory Results - last 24 hr 09/30/22 09/30/22 06:22 06:22 WBC 10.34 RBC 3.55 L Hgb 10.1 L Hct 31.7 L MCV 89 MCH 28.5 MCHC 31.9 L RDW 13.8 Plt Count 259 MPV 9.9 Immature Gran % 0.4 Neutrophils % 79.4 Lymphocytes % 7.9 Monocytes % 10.0 Eosinophils % 2.0 Basophils % 0.3 Nucleated RBC % 0.0 Absolute Neutrophils 8.21 H Absolute Lymphocytes 0.82 L Absolute Monocytes 1.03 H Absolute Eosinophils 0.21 Absolute Basophils 0.03 Sodium 132 L Potassium 4.5 Chloride 100 Carbon Dioxide 25.5 Anion Gap 6.5 BUN 43 H Creatinine 1.6 H Est GFR (CKD-EPI 2020) 35.13 Glucose 107 H Calcium 9.0 Magnesium 3.4 H Time Spent with Patient Time Spent with Patient: 35-49 minutes Time was spent: preparing to see the patient(eg.review tests), obtaining and/or reviewing separately otained hiistory, ordering medications,tests, procedures, indepentently interpreting results and counseling the patient
[2022-09-30] MEDS: Cyclobenzaprine 10 MG TAB 20 MG PO (20:09)
[2022-09-30] MEDS: Metoprolol 12.5 MG TAB PO (20:10)
[2022-09-30] MEDS: Zolpidem 5 MG TAB PO (20:10)
[2022-09-30 20:48] VITALS: BP 128/79; PULSE 85; RESP 18; TEMP 36.7; O2SAT 95
[2022-09-30] MEDS: Lidocaine Patch Removal 1 EACH TP (20:50)
[2022-10-01] MEDS: Normal Saline Flush 10 ML SYR IVP ×3 (00:28→20:48)
[2022-10-01] MEDS: HYDROmorphone 2 MG/ML SYR IVP ×2 (00:28→14:49)
[2022-10-01 02:38] VITALS: BP 104/65; PULSE 76; RESP 18; TEMP 36.6; O2SAT 95
[2022-10-01] MEDS: Lidocaine 5% Patch 1 PATCH TP ×2 (03:10→21:09)
[2022-10-01 07:41] VITALS: BP 116/67; PULSE 84; RESP 16; TEMP 36.7; O2SAT 96
[2022-10-01] MEDS: Enoxaparin 40 MG/0.4 ML SYR SC (08:51)
[2022-10-01] MEDS: Pantoprazole 40 MG TABCR PO (08:52)
[2022-10-01] MEDS: amLODIPine 2.5 MG TAB PO (08:52)
[2022-10-01] MEDS: Polyethylene Glycol 3350 17 GM PACKET PO ×2 (08:52→19:17)
[2022-10-01] MEDS: Methocarbamol 500 MG TAB 1000 MG PO ×4 (08:53→19:11)
[2022-10-01] MEDS: Acetylcysteine 600 MG CAP 1200 MG PO ×2 (08:53→19:08)
[2022-10-01] MEDS: Docusate Sodium 100 MG CAP PO ×3 (08:53→19:09)
[2022-10-01] MEDS: Lisinopril 10 MG TAB PO (08:53)
[2022-10-01] MEDS: Gabapentin 300 MG CAP PO ×2 (08:53→19:11)
[2022-10-01] MEDS: Folic Acid 1 MG TAB PO (08:53)
[2022-10-01] MEDS: Senna TAB 1 TAB PO ×2 (08:53→19:10)
[2022-10-01] MEDS: Metoprolol 12.5 MG TAB PO ×2 (08:53→19:16)
[2022-10-01] MEDS: Acetaminophen 325 MG TAB 650 MG PO ×4 (08:54→19:11)
[2022-10-01] MEDS: Lidocaine Patch Removal 1 EACH TP (08:55)
--- NOTE | 2022-10-01 09:02 | PDOC.CMPRO ---
- If Service Date Differs Date of service: 10/01/22 Time of Service: 09:02 Care Management Progress Note S/O:Missy was sitting up in bed when CM met with her. She greeted CM with a smile and stated that she had a pretty good night, although it was noisy. CM has requested that her room be moved further away from the desk. Missy will likely be at [facility] for several weeks and it will be important that she be able to rest. It is unlikely that Missy will receive any information about her pending Medicaid application soon. The plan will be to transition her to swingbed status this afternoon. A prior authorization has been requested from [employer], her insurance company. Missy received a visit from Tariq Lugo from [facility], who follows her in the community. Missy informed CM that she really looks forward to her visits, Its just like having a friend come to visit. A: Missy is a 67 year old woman admitted om 09/25/22 with a fractured femur P: Missy would benefit from short term rehab in a long-term facility but not having a Medicare supplement has been a barrier. Referrals were sent to several facilities who declined to offer her a bed, citing lack of a payer source as the reason. CM sent a referral to [facility] to explore the possibility of Missy getting Medicaid. The application has been submitted but it is unknown when a response will be received. It is likely that Missy will be transitioned to SB-1 for the 6-8 weeks of immobility that she requires. CM will continue to support Missy and assess for ongoing discharge concerns.
--- NOTE | 2022-10-01 10:22 | OTIE_ITS ---
Occupational Therapy Notes Inpatient Occupational Therapy Evaluation Date: 10/01/22 Referring Doctor:Julita Menendez NP OT Orders: Non Urgent Precautions: Fall, Standard, DNR/DNI PATIENT PROFILE/ADMITTING DIAGNOSIS: Pt is a 67 year old female who was admitted to Med Surg for the following dx of HTN, GERD, Myasthenia Gravis, neuropathic pain of (B) LE weakness, frequent falls, constipation, neurogenic bladder, closed fx of distal femur. Past Medical History: All Active Problems?(Updated 09/25/22 @ 23:57 by Dioni Montgomery) Closed left femoral fracture (Acute) Weakness (Acute) Urinary retention (Acute) Urinary frequency (Acute) Pain (Acute) Hypokalemia (Acute) Frequent falls (Chronic) Dental caries (Acute) Bunion of unspecified foot (Acute) Intracranial arachnoid cyst (Chronic) GERD (gastroesophageal reflux disease) (Chronic) Asymptomatic microscopic hematuria (Acute) Chronic pain (Chronic) Chronic renal insufficiency (Acute) Left hand weakness (Acute) Ataxia (Acute) Constipation, chronic (Acute) POLST (Physician Orders for Life-Sustaining Treatment) (Acute) COLST completed 10/30/2020 with MAUREEN Marley, DNR/DNIDNR (do not resuscitate) (Acute) DNI (do not intubate) (Acute) Generalized weakness (Acute) Protein malnutrition (Acute) Left shoulder pain (Acute) Carpal tunnel syndrome of left wrist (Acute) Ulnar neuropathy of left upper extremity (Acute) Rupture of left proximal biceps tendon (Acute) Bursitis of left shoulder (Acute) Fluid collection at surgical site (Acute) Neurogenic bowel (Acute) Tachycardia (Acute) Elevated troponin (Acute) Palliative care patient (Acute) External bleeding hemorrhoids (Acute) Atelectasis (Acute) Oropharyngeal dysphagia (Acute) Fluid collection at surgical site (Acute) Palliative care patient (Acute) Urine abnormality (Acute) UTI (urinary tract infection) (Acute) Medical History? Anxiety Arachnoid cyst COPD (chronic obstructive pulmonary disease) Depression Former smoker Gastric ulcer History of gluten intolerance History of lacunar cerebrovascular accident Hyperlipidemia Hypertension Insomnia previous misuse of AmbienLeft arm weakness Migraine headache without aura Myasthenia gravis Neurogenic bladder Neuropathic pain of both legs Peripheral neuropathy Prediabetes Spasticity Spinal stenosis Syrinx of spinal cord Starting at C3 and extending to T11 Surgical History? H/O craniotomy ; L cerebellar arachnoid cyst drain with shunt placementH/O esophagogastroduodenoscopy (~07/2021) 09/2021H/O thymectomy 1980sS/P appendectomy S/P cystourethroscopy with dilation of urethral stricture S/P tonsillectomy Social History/Home Situation: Pt lives alone in an apartment and has HH OT who comes in to (A) with her bathing routines. She states that she doesn't drive and doesn't like to walk around town. She has a friend who she is close with who helps with ADL/IADL tasks like laundry and home making tasks. She notes that she has a limited social support and doesn't tend to leave her apartment. She is reporting that she likes to be as (I) as possible but notes that sometimes she is fatigued. She has a tub shower and reports that her (A) comes from needing help with the transfer in but notes that this has improved since her last admission to [facility]. She also states that she gets meals on wheels and that they provide her with 1 meal per day and she has snacks for the other times she is hungry. She notes that she has some difficulty with cutting her food but her (B) UE fine motor control is fair-poor at this time. Equipment owned/DME: Wheelchair, Shower bench, grab bars SUBJECTIVE:??Pt states that her (L) side of her body is weaker than her (R). She has been relatively (I) in her home setting up until her admission but states that she has frequent falls. She notes that her balance in poor in her core which affects her (I) as well. OBJECTIVE:? General Observation: Telemetry, IV, gomes in place Mental Status: A&Ox3 Pain: c/o pain in (B) LE and (L) UE ROM: RUE AROM WFL L UE AROM WFL STRENGTH: RUE 3/5 throughout LUE 2+/5 throughout FUNCTIONAL MOBILITY/ADLS:? Self Care Training [id number]: BALANCE: Static sitting Good Dynamic Sitting Good SPECIAL TESTS:? Daily Activity Limitations Standardized Measure [facility] ? AM -PAC ? ?6 clicks? Daily Activity Inpatient Short Form: Raw score: 19 ? Standardized score: 40.22? CMS score: 42.80%? INFORMED CONSENT/EDUCATION: Pt instructed in purpose of OT Consult and plan of care. ASSESSMENT:?? Patient is a 67-year-old female referred to occupational therapy services with diagnosis of HTN, GERD, Myasthenia Gravis, neuropathic pain of (B) LE weakness, frequent falls, constipation, neurogenic bladder, closed fx of distal femur. Patient presents with clinical signs and symptoms consistent with dx, as demonstrated by the following impairment level findings/ functional limitations: Impairments ADL/IADL and leisure impairments, pain in (L) arm and (B) LE, numbness in (B) LE and decreased functional activity tolerance, impairments in functional mobility required for ADL performance. AMPAC score 19 Patient is assessed as a Moderate 83801 complexity based on the following: History: see above Examination: see functional limitations as noted above Presentation: evolving Decision Making: moderate complexity GOALS Goals x1 week 1. Oral Hygiene pt will be (I) sitting in bed with ideal technique 2.? Dressing sitting on side of the bed (I) 3.? Bathing in shower (I) seated 4.? Toileting on commode (I) PLAN OF CARE/TREATMENT PLAN: 1x/day, 5 days/ week x 1week Initiate Occupational Therapy Services for bathing, dressing, grooming, toileting, eating, transfer training. DISCHARGE RECOMMENDATIONS Due to pts decreased functional activity tolerance/ fx in her femur OT recommends that pt go SNF va. Home with continued HH services when medically cleared per MD. TREATMENT TIME/MINUTES/CODES 79407, [id number], 30 minutes Daya Cali OTR/L [facility]
--- NOTE | 2022-10-01 10:25 | PCNE_ITS ---
Date of service: 10/01/22 Time of Service: 09:00 History of Present Illness Narrative: Missy was seen at [facility] for continuation of care. She is followed by Palliative outpatient. Unfortunately, she had a fall while transferring at home and sustained a Left intra-articular minimally displaced distal femur fx. She was seen in her room, she was taking her medications at the time of the visit. She had breakfast in front of her. She appears to be in good spirits. She reports that her pain seems to be well controlled at present, sometimes it increases later in the day. Her fentanyl patch was increased to 100 mcg/hr yesterday, she has been on 75 mcg/hr chronically at home. She is working with PT. PT recommends SNF for rehab, she reports that her insurance does not appear to cover rehab. She is working with CM on this. She is eating well. She is not having any difficulty swallowing. She has been living independently in an apartment at the [facility]. There have been several conversations both with her PCP and Palliative questioning whether she should continue to live in her apartment alone. She has not been interested in assisted living prior to this hospitalization, however, this may be something to consider at this point. She has had several falls at home, now with a fracture. Assessment and Plan Assessment and plan (1) Closed fracture of left distal femur: Status: Acute (2) Myasthenia gravis: Status: Chronic (3) Syrinx of spinal cord: (4) Neurogenic bladder: Status: Chronic (5) Spasticity: (6) Arachnoid cyst: (7) Ambulatory dysfunction: Status: Acute (8) Frequent falls: Status: Chronic (9) Weakness: Status: Acute (10) Pain: Status: Acute (11) Neuropathic pain of both legs: Status: Chronic (12) GERD (gastroesophageal reflux disease): Status: Chronic (13) Palliative care patient: Assessment and plan: Missy is a very pleasant 67 year old female with a past medical Hx significant for Myesthenia Gravis, syrinx of the spinal cord, who is wheelchair bound at baseline and has had several falls at home. Unfortunately, she had a fall while transferring at home and sustained a left distal femur fracture. She is currently hospitalized at [facility]. She was seen at [facility] for Palliative continuation of care. She reports that her pain is well controlled this morning. Her fentanyl patch was increased to 100 mcg/hr yesterday. She is being treated nonoperatively and will need to keep her LLE extended for 4 weeks. PT recommends rehab, however, it does not appear that she has insurance coverage for SNF rehab stay. CM working on plan. Palliative will follow as needed and after discharge. Review of Systems Narrative: Per HPI. PFSH All Active Problems Ambulatory dysfunction (Acute) Hypertension (Chronic) GERD (gastroesophageal reflux disease) (Chronic) Myasthenia gravis (Chronic) Neuropathic pain of both legs (Chronic) Weakness (Acute) Pain (Acute) Frequent falls (Chronic) Constipation, chronic (Chronic) Neurogenic bladder (Chronic) Closed fracture of left distal femur (Acute 09/25/22) Medical History Acute hypokalemia Acute hyponatremia Alcohol abuse history of Anxiety Arachnoid cyst Asymptomatic microscopic hematuria Ataxia Atelectasis Bunion of unspecified foot Bursitis of left shoulder Carpal tunnel syndrome of left wrist Chronic pain Chronic renal insufficiency COPD (chronic obstructive pulmonary disease) Dental caries Depression DNI (do not intubate) DNR (do not resuscitate) Elevated troponin External bleeding hemorrhoids Fluid collection at surgical site Fluid collection at surgical site Former smoker Gastric ulcer Generalized weakness History of gluten intolerance History of lacunar cerebrovascular accident Hyperlipidemia Hypokalemia Hypomagnesemia Hypoxia Insomnia previous misuse of Ambien Intracranial arachnoid cyst Left arm weakness Left hand weakness Left shoulder pain Migraine headache without aura Neurogenic bowel Oropharyngeal dysphagia Palliative care patient Palliative care patient Peripheral neuropathy POLST (Physician Orders for Life-Sustaining Treatment) COLST completed 10/30/2020 with Jennifer Lugo, MAUREEN, DNR/DNI Prediabetes Prerenal azotemia Protein malnutrition Rupture of left proximal biceps tendon Spasticity Spinal stenosis Syrinx of spinal cord Starting at C3 and extending to T11 Tachycardia Ulnar neuropathy of left upper extremity Urinary frequency Urinary retention Urine abnormality UTI (urinary tract infection) Surgical History H/O craniotomy ; L cerebellar arachnoid cyst drain with shunt placement H/O esophagogastroduodenoscopy (~07/2021) 09/2021 H/O thymectomy 1980s S/P appendectomy S/P cystourethroscopy with dilation of urethral stricture S/P tonsillectomy Family History Mother , 90 Diabetes Hypertension Stroke Father , 73 Neuropathy Back problem Depression Heart disease Stroke Brother Myasthenia gravis Depression Maternal Grandfather , 80's Diabetes Paternal Grandfather , 50 Heart disease Maternal Grandmother , 80 No problems noted. Paternal Grandmother , 70 No problems noted. Social History Smoking/Tobacco Use Status: Former Tobacco Use tobacco type: cigarettes Quit Date: 08/15/16 Tobacco: How many years used: 35 Smoking risk assessment performed?: Yes Alcohol Intake: former Drug use: Never Substance use type: does not use Household members: other Housing: residential Number of Children: 0 Pets and animals: No Current gender identity: female What type of physical activity do you participate in: none Seatbelt use: always Do you feel safe at home: Yes (Pt lives alone) Do you feel safe in your relationship?: Yes Results Last Vital Signs Temp 36.7 C 10/01/22 07:41 Pulse 84 10/01/22 07:41 Resp 16 10/01/22 07:41 BP 116/67 10/01/22 07:41 Pulse Ox 96 10/01/22 07:41 Labs 09/30/22 06:22 09/30/22 06:22
--- NOTE | 2022-10-01 13:33 | PT.INTREAT ---
PT Notes Visit Reasons: Closed Left Distal Femur Fracture Date: 10/01/2022 PRECAUTIONS: Activity as tolerated, paraparesis, NWB L SUBJECTIVE: Pt in bed when approached for therapy this morning, pt agreed to participating with therapeutic procedures as wellas transfers going from pt bed to WC. OBJECTIVE: ? PAIN: Patient c/o L LE pain with movement, has been compliant with pelvic tilting, mini armchair push ups and ankle pumps despite report of discomfort when doing activity. ? BED MOBILITY/TRANSFERS: mod A +2 doing side to side front and back transfers? THEREX: Patient was instructed in a global strengthening and stabilization program, completed in a supine position, to include: Ankle pumps x10 Quad (R only) and glute sets x10 Heel slides (R only) x10 with moderate assist Hip abduction (R only) x10 with minimal assist Bicep curls with 1# x20 Shoulder protraction/punch ups with 1# x10 Shoulder flexion with 1# x10 PPT x10 Modified sit up with 1# x10 Modified diagonal crunch with 1# x10 each L/R Transfer Training: front and back transfer going from supine to half sitting, half sitting to WC with pt doing bilateral triceps push ups to assist with transfers. ASSESSMENT:? Pt reports feeling fatigue and exhaustion post session with pt resting in WC with assiatnce for setup for heel raise pad, and proper alignment while in WC. PLAN: Continue with global strengthening, bed mobility and transfer training for improved ability to perform daily functional tasks. TREATMENT CODE/TIME: Session 1: 38mins [id number], [id number]
[2022-10-01] MEDS: Ondansetron O.D.T. 4 MG TABEF PO (13:48)
[2022-10-01 15:50] VITALS: BP 120/67; PULSE 81; RESP 14; TEMP 37.1; O2SAT 92
--- NOTE | 2022-10-01 16:23 | PT.INTREAT ---
PT Notes Visit Reasons: Closed Left Distal Femur Fracture Date: 10/01/2022 PRECAUTIONS: Activity as tolerated, paraparesis, NWB L SUBJECTIVE: Pt has been on WC since last transfer, pt reports that she would like to go back in bed to rest for the afternoon. OBJECTIVE: ? PAIN: Patient c/o L LE pain 03/24 ? BED MOBILITY/TRANSFERS: mod A +3 going from WC to EOB, EOB to half sitting, half sitting to supine ? Transfer Training: front and back transfer going from WC to half sitting, half sitting to supine with pt doing bilateral triceps push ups to assist with transfers. Assessment: Pt reports that the transfer was exhausting but is comfortable being on the bed again. PLAN: Continue with global strengthening, bed mobility and transfer training for improved ability to perform daily functional tasks. TREATMENT CODE/TIME: Session 2: 15mins [id number]
--- NOTE | 2022-10-01 16:45 | PGE_ITS ---
Date of Service Date of service: 10/01/22 Time of Service: 16:45 Assessment and Plan Assessment and plan (1) Closed fracture of left distal femur: Status: Acute Assessment and plan: 67 year old female with Left intra-articular minimally displaced distal femur fx after a fall at assisted living facility where she lives Left knee immobilizer Thigh compartments soft. Moderate knee effusion. Sensation intact throughout to light touch. Non surgical managment with pain mgt and knee immobilizer. Trial of nonoperative management. While patient is resting in bed and not repositioning or moving, knee immobilizer should be opened up or at least loosened to reduce pressure on skin and chance of skin breakdown. Knee immobilizer should be relatively snug during repositioning and while out of bed. Maintain knee straight in full extension for 4 weeks. Non-weight bearing left lower extremity about 6-8 weeks. Replace soft roll padding and/or Elvis bandage as needed to protect skin from knee immobilizer. Follow-up with trauma material control specialist Dr. Alok Byrd at [facility] in about 1 week. (2) Hypertension: Status: Chronic Assessment and plan: blood pressures improved with medication reductions yesterday. continue to monitor blood pressure and adjust meds as needed. (3) Myasthenia gravis: Status: Chronic Assessment and plan: Continue outpatient medical therapy (4) Spinal stenosis: Assessment and plan: With chronic pain and paraplegia. Physical therapy (5) GERD (gastroesophageal reflux disease): Status: Chronic Assessment and plan: Continue PPI. (6) Neurogenic bladder: Status: Chronic Assessment and plan: With history of frequent UTIs, urinalysis done - negative (7) Pain: Status: Acute Assessment and plan: Ketorelac is working well for her pain; will continue Fentanyl patch was increased yesterday to 100 mcg change every 72 hours with improvement oxycodone added Spasm - methocarbamol prn (8) Constipation, chronic: Status: Chronic Assessment and plan: continue bowel regimen and prn relistor as needed (9) DVT prophylaxis: Status: Acute Assessment and plan: Enoxaparin 40 mg sc (10) Discharge planning issues: Status: Acute Assessment and plan: SNF when availlable - plan for rehab is 6-8 weeks with no surgical intervention Discussed with Dr Hsieh Subjective Subjective Patient reports: feels better, tolerating liquids well, tolerating a regular diet, bowel movement and afebrile Interval history since last seen: pain improved with increased fentanyl Exam Const General: cooperative and no acute distress Orientation: alert, awake and oriented x3 HENMT Head: normal to inspection Face and sinus: normal facial exam Eyes General: appearance normal, both eyes and all related structures Pupils: PERRL EOM: EOM intact bilaterally Neck Neck: normal visual inspection and No submandibular swelling Lymphatic: no lymphadenopathy noted Chest Chest: normal inspection of the chest and no tenderness Resp Effort & Inspection: normal respiratory effort and able to speak in complete sentences Auscultation: clear to auscultation bilaterally Cardio Rate: regular rate Rhythm: regular rhythm GI Inspection: normal to inspection Palpation: soft, not firm, not rigid and nontender Auscultation: normal bowel sounds Back/Spine/Pelvis Thoracic/Lumbar Spine: thoracic and lumbar spine normal to inspection Pelvis: no pain with anterior-posterior compression Skin General skin exam: no rashes or lesions noted Neuro General: patient alert, patient awake and patient oriented x3 Cognition: normal cognition Speech: speech normal Motor: muscle tone normal throughout Sensory Exam: no sensory deficits noted Extrem General: capillary refill normal Right upper extremity: normal to inspection Left upper extremity: normal to inspection Right lower extremity: normal to inspection Left lower extremity: normal to inspection (knee immobilizer in place) and normal capillary refill Psych Appearance: grossly normal Mental Status: mental status grossly normal Speech and Movement: speech and movement normal Affect: normal affect Objective Last Vital Signs Temp 37.1 C 10/01/22 15:50 Pulse 81 10/01/22 15:50 Resp 14 10/01/22 15:50 BP 120/67 10/01/22 15:50 Pulse Ox 92 10/01/22 15:50 Time Spent with Patient Time Spent with Patient: 25-34 minutes Time was spent: preparing to see the patient(eg.review tests), obtaining and/or reviewing separately otained hiistory, indepentently interpreting results and counseling the patient
[2022-10-01 19:18] VITALS: BP 114/73; PULSE 80; RESP 16; TEMP 36.9; O2SAT 95
[2022-10-01] MEDS: oxyCODONE 5 MG TAB PO (20:47)
[2022-10-01] MEDS: Ketorolac 15 MG/ML VIAL IVP (20:48)
[2022-10-01] MEDS: Cyclobenzaprine 10 MG TAB 20 MG PO (21:08)
[2022-10-01] MEDS: Zolpidem 5 MG TAB PO (21:08)
[2022-10-01 23:25] VITALS: BP 122/72; PULSE 71; RESP 18; TEMP 36.7; O2SAT 92
[2022-10-02 03:01] VITALS: BP 122/76; PULSE 78; RESP 12; TEMP 36.6; O2SAT 92
[2022-10-02] MEDS: Polyethylene Glycol 3350 17 GM PACKET PO ×2 (08:25→19:55)
[2022-10-02] MEDS: Enoxaparin 40 MG/0.4 ML SYR SC (08:25)
[2022-10-02] MEDS: Acetaminophen 325 MG TAB 650 MG PO ×4 (08:26→19:58)
[2022-10-02] MEDS: Gabapentin 300 MG CAP PO ×2 (08:26→19:58)
[2022-10-02] MEDS: Normal Saline Flush 10 ML SYR IVP ×3 (08:26→23:19)
[2022-10-02] MEDS: Acetylcysteine 600 MG CAP 1200 MG PO ×2 (08:26→19:57)
[2022-10-02] MEDS: Lisinopril 10 MG TAB PO (08:27)
[2022-10-02] MEDS: Methocarbamol 500 MG TAB 1000 MG PO ×4 (08:27→19:56)
[2022-10-02] MEDS: Pantoprazole 40 MG TABCR PO (08:27)
[2022-10-02] MEDS: Senna TAB 1 TAB PO ×2 (08:28→19:58)
[2022-10-02] MEDS: Docusate Sodium 100 MG CAP PO ×3 (08:28→19:56)
[2022-10-02] MEDS: Folic Acid 1 MG TAB PO (08:28)
[2022-10-02] MEDS: amLODIPine 2.5 MG TAB PO (08:28)
[2022-10-02] MEDS: Metoprolol 12.5 MG TAB PO ×2 (08:28→19:57)
[2022-10-02] MEDS: Ketorolac 15 MG/ML VIAL IVP (11:09)
[2022-10-02 11:12] VITALS: BP 115/71; PULSE 68; RESP 17; TEMP 36.8; O2SAT 97
[2022-10-02] MEDS: Lidocaine Patch Removal 1 EACH TP (11:19)
--- NOTE | 2022-10-02 11:52 | PT.INTREAT ---
PT Notes Visit Reasons: Closed Left Distal Femur Fracture Inpatient Physical Therapy Treatment Note [facility] Date: 10/02/22 SUBJECTIVE: Pt report that she does not want to transfer today she states that she was in the w/c too long yesterday and does not want to be left in it today. Pt refused sitting at OOB as well did not feel she could today she was experiencing too much discomfort. OBJECTIVE: THEREX: UE should flexion x 10, cw/ccw x 10, rowing x 10, bicep curls 1# x 10, horz abd x 10, PNF d1,d2x 10 each, pull ups with the trapeze, and partial sit ups x 10. ASSESSMENT: Pt was not willing to get OOB or sit at the edge of the bed today. Pt seemed somewhat agitated today. PLAN: Cont as per PT POC. TREATMENT CODE/TIME: 11:30-11:50 (20) TP
--- NOTE | 2022-10-02 12:12 | CMPROGNOTE_ITS ---
- If Service Date Differs Date of service: 10/02/22 Time of Service: 12:12 Care Management Progress Note S/O: Missy will transition to SWB1 today, where she will continue to work with PT on safe transfers while non weight bearing. She is unable to return home due to living alone, and the inability to care for herself while she is non weight bearing. Referrals were sent to several facilities with no bed offers. A PA was submitted to [facility] for her skilled stay. She has also applied for group home [facility], which is pending. CM will submit an 804 to [facility] for this stay, if [facility] does not approve the PA, or only agrees to pay for a portion of the stay. She will likely remain in SWB for 6-8 weeks, while she is immobile. CM will continue to follow. Missy entered SWB on 10/03/22, not 10/02/22. A: Missy is a 67 year old woman admitted om 09/25/22 with a fractured femur P: Missy would benefit from short term rehab in a senior care facility but not having a Medicare supplement has been a barrier. Referrals were sent to several facilities who declined to offer her a bed, citing lack of a payer source as the reason. CM sent a referral to [facility] to explore the possibility of Missy getting Medicaid. The application has been submitted but it is unknown when a response will be received. It is likely that Missy will be transitioned to SB-1 for the 6-8 weeks of immobility that she requires. CM will continue to support Missy and assess for ongoing discharge concerns.
[2022-10-02] MEDS: oxyCODONE 5 MG TAB PO ×2 (13:57→21:25)
[2022-10-02 15:40] VITALS: BP 122/76; PULSE 84; RESP 17; TEMP 36.9; O2SAT 95
--- NOTE | 2022-10-02 17:10 | W.PM.DS.N ---
Date of service: 10/03/22 Time of Service: 10:56 DS: Diagnosis Discharge Diagnosis (1) Closed fracture of left distal femur: Status: Acute (2) Hypertension: Status: Chronic (3) Myasthenia gravis: Status: Chronic (4) Spinal stenosis: (5) GERD (gastroesophageal reflux disease): Status: Chronic (6) Neurogenic bladder: Status: Chronic (7) Pain: Status: Acute (8) Constipation, chronic: Status: Chronic Discharge Plan Disposition Patient Disposition: Swing Bed(Skilled,SB1) Condition: Stable Discharge Details Reason For Visit: Closed Left Distal Femur Fracture Admit Date/Time: 09/25/22 22:32 Admit Provider: Dioni Montgomery Attending Provider: Dioni Montgomery Primary Care Provider: Prashanth Jiang Hospital Course Hospital Course: This is a 67-year-old female patient brought to the ED on Sep 25 2022 for pain in the left knee after a fall when she was pivoting from wheelchair to bed.? She has not walked for more than a year secondary to spinal stenosis. She does have a history of myasthenia gravis since she was in her 30s.? She also has chronic pain on fentanyl and takes Lasix daily for peripheral edema with no history of CHF and no orthostasis or dizziness prompting fall.? This fall was simply from instability with transferring.An orthopedic consult was sought as initially she was thought to be a surgical candidate.? Our WHEEL SETTER here reviewed the case and did not feel she was appropriate for this facility and transfer was requested but due to capacity there was no facility to transfer her to.? We had orthopedics at our facility evaluate her and although surgical intervention may optimize healing it was felt that due to her baseline immobility and minimal fracture displacement it would be reasonable to trial nonoperative management.? She was placed in a knee immobilizer with instruction to loosen when in bed to reduce pressure areas on the skin.? She is to remain in full extension with straight knee for 4 weeks and that she will be nonweightbearing to that left lower extremity for 6 to 8 weeks.? She will follow-up with [facility] Dr. Alok Byrd outpatient.? Her pain medications have been adjusted.? She is remained medically stable's been eating and drinking bowels and bladder functioning well.? She is maintained indwelling Brar catheter.? Due to her nonweightbearing status referrals were placed to swing facilities but she has not been accepted.? She will remain here under senior living and PT discussed with DR Мария Garza Medsally and New Rx's Prescriptions: No Action sennosides 8.6 mg tablet 8.6 mg PO BID PRN Patient Comments: Pt reports not taking for @ 1 month lisinopril 5 mg tablet 20 mg PO DAILY levofloxacin 750 mg tablet 750 mg PO DAILY 7 Days Qty: 7 0RF acetaminophen 500 mg tablet 1,000 mg PO TID PRN PRN (Reason: pain) Qty: 90 0RF ondansetron 4 mg tablet,disintegrating 4 mg PO Q8H PRN (Reason: nausea and vomiting) Qty: 30 3RF Rx Instructions: doesn't take furosemide 20 mg tablet 20 mg PO DAILY Qty: 30 0RF cyclobenzaprine 10 mg tablet See Rx Instructions PO .COMPLEX Qty: 270 3RF Rx Instructions: orally 20mg HS with an additional 10mg once daily prn neck spasms; lidocaine 5 % adhesive patch,medicated See Rx Instructions .ROUTE .COMPLEX Qty: 30 5RF Dose Instruction: APPLY ONE PATCH TOPICALLY TO THE SKIN DIRECTED, 12 HOURS ON AND THEN 12 HOURS OFF Rx Instructions: APPLY ONE PATCH TOPICALLY TO THE SKIN DIRECTED, 12 HOURS ON AND THEN 12 HOURS OFF acetylcysteine 600 mg capsule 1,200 mg PO BID Qty: 120 3RF pyridostigmine bromide 180 mg tablet extended release See Rx Instructions .ROUTE .COMPLEX Qty: 90 3RF Dose Instruction: TAKE ONE TABLET BY MOUTH EVERY DAY Rx Instructions: TAKE ONE TABLET BY MOUTH EVERY DAY polyethylene glycol 3350 17 gram powder in packet 17 g PO DAILY ciclopirox 8 % solution 1 applic topical DAILY amlodipine 2.5 mg tablet 2.5 mg PO DAILY tizanidine 2 mg tablet 2 mg PO QHS PRN gabapentin 300 mg capsule See Rx Instructions .ROUTE .COMPLEX Qty: 450 3RF Dose Instruction: TAKE 2 CAPSULES BY MOUTH IN THE MORNING, 1 CAPSULE MIDDAY AND 2 CAPSULES AT BEDTIME. NO ABRUPT CESSATION Rx Instructions: Takes 200mg mid-day and 300mg at night NO ABRUPT CESSATION fentanyl 75 mcg/hr patch 72 hour 1 patch transdermal Q72H MDD 180 mme Qty: 10 0RF zolpidem [Ambien] 5 mg tablet 5 mg PO QHS PRN (Reason: insomnia) Qty: 30 5RF Rx Instructions: 1-2 tabs folic acid 1 mg Tablet 1 mg PO DAILY AM Qty: 30 0RF pantoprazole 40 mg tablet,delayed release (DR/EC) 40 mg PO DAILY Discharge Instructions Instructions: Leg Fracture (DC) Referrals: Alok Byrd [ NON-[facility] STAFF PHYSICIAN] - (Trauma Ortho Specialist @ [facility] in 1 week) Activity:: Activity as Tolerated Equipment/Supplies:: No Equipment Needed Diet:: Low Sodium Discharge Orders Discharge Orders: Discharge Order (Routine); Ordered 10/03/22 Ordered By: Pavithra Bliss Discharge Data Discharge Date/Time-TO BE ENTERED AT DEPARTURE: 10/03/22 11:16 DS: Summary Time Spent with Patient providing and/or coordinating discharge services: Greater than 30 minutes Status at Discharge Functional status at discharge: independent ambulation Overall status at discharge: patient is back to baseline Mental Status: mental status grossly normal Speech and Movement: speech and movement normal Mood: congruent mood Affect: normal affect Exam Const General: cooperative and no acute distress Orientation: alert, awake and oriented x3 HENMT Head: normal to inspection Face and sinus: normal facial exam Eyes General: appearance normal, both eyes and all related structures Pupils: PERRL EOM: EOM intact bilaterally Neck Neck: normal visual inspection and No submandibular swelling Lymphatic: no lymphadenopathy noted Chest Chest: normal inspection of the chest and no tenderness Resp Effort & Inspection: normal respiratory effort and able to speak in complete sentences Auscultation: clear to auscultation bilaterally Cardio Rate: regular rate Rhythm: regular rhythm GI Inspection: normal to inspection Palpation: soft, not firm, not rigid and nontender Auscultation: normal bowel sounds Back/Spine/Pelvis Thoracic/Lumbar Spine: thoracic and lumbar spine normal to inspection Pelvis: no pain with anterior-posterior compression Skin General skin exam: no rashes or lesions noted Neuro General: patient alert, patient awake and patient oriented x3 Cognition: normal cognition Speech: speech normal Motor: muscle tone normal throughout Sensory Exam: no sensory deficits noted Extrem General: capillary refill normal Right upper extremity: normal to inspection Left upper extremity: normal to inspection Right lower extremity: normal to inspection Left lower extremity: normal to inspection (knee immobilizer in place) and normal capillary refill Psych Appearance: grossly normal Mental Status: mental status grossly normal Speech and Movement: speech and movement normal Mood: congruent mood Affect: normal affect DS: Data Vitals/I&O Vitals and I&O: Vital Signs Temperature 36.9 C 10/02/22 15:40 Temperature Source Tympanic 10/02/22 15:40 Pulse 84 10/02/22 15:40 Pulse Rhythm Regular 10/02/22 00:47 Pulse 107 H 09/25/22 23:27 Respiratory Rate 17 10/02/22 15:40 Respiratory Effort Normal, Non-Labored 10/02/22 00:47 Respiratory Depth Normal 10/02/22 00:47 Respiratory Pattern Normal 10/02/22 00:47 Blood Pressure 122/76 10/02/22 15:40 Blood Pressure Mean 119 09/25/22 23:27 Blood Pressure Position Supine 09/25/22 15:55 Pulse Oximetry 95 10/02/22 15:40 Oxygen Delivery Method Room Air 10/02/22 15:40 Oxygen Flow Rate 0 10/02/22 15:40 Pain Level 7 10/02/22 15:48 Comment pT is stating more pain in her lower legs 09/28/22 15:29 Intake & Output 10/01/22 10/02/22 10/02/22 23:59 11:59 23:59 Intake Total 10 / 1010 600 / 600 Output Total 300 / 900 350 / 600 250 / 600 Balance -290 / 110 -350 / 0 350 / 0 Weight 58.6 kg Intake: IV 10 / 1010 Oral 600 / 600 Output: Urine 300 / 900 350 / 600 250 / 600 Other: Urine Color Yellow Yellow Yellow Urine Appearance Clear Clear Clear PFSH All Active Problems (Updated 10/01/22 @ 10:47 by Jennifer Lugo NP) Ambulatory dysfunction (Acute) Hypertension (Chronic) GERD (gastroesophageal reflux disease) (Chronic) Myasthenia gravis (Chronic) Neuropathic pain of both legs (Chronic) Weakness (Acute) Pain (Acute) Frequent falls (Chronic) Constipation, chronic (Chronic) Discharge planning issues (Acute) Neurogenic bladder (Chronic) Closed fracture of left distal femur (Acute 09/25/22) DVT prophylaxis (Acute) Medical History Acute hypokalemia Acute hyponatremia Alcohol abuse history of Anxiety Arachnoid cyst Asymptomatic microscopic hematuria Ataxia Atelectasis Bunion of unspecified foot Bursitis of left shoulder Carpal tunnel syndrome of left wrist Chronic pain Chronic renal insufficiency COPD (chronic obstructive pulmonary disease) Dental caries Depression DNI (do not intubate) DNR (do not resuscitate) Elevated troponin External bleeding hemorrhoids Fluid collection at surgical site Fluid collection at surgical site Former smoker Gastric ulcer Generalized weakness History of gluten intolerance History of lacunar cerebrovascular accident Hyperlipidemia Hypokalemia Hypomagnesemia Hypoxia Insomnia previous misuse of Ambien Intracranial arachnoid cyst Left arm weakness Left hand weakness Left shoulder pain Migraine headache without aura Neurogenic bowel Oropharyngeal dysphagia Palliative care patient Palliative care patient Peripheral neuropathy POLST (Physician Orders for Life-Sustaining Treatment) COLST completed 10/30/2020 with Jennifer Lugo, HOTEL ROOM ATTENDANT, DNR/DNI Prediabetes Prerenal azotemia Protein malnutrition Rupture of left proximal biceps tendon Spasticity Spinal stenosis Syrinx of spinal cord Starting at C3 and extending to T11 Tachycardia Ulnar neuropathy of left upper extremity Urinary frequency Urinary retention Urine abnormality UTI (urinary tract infection) Surgical History H/O craniotomy ; L cerebellar arachnoid cyst drain with shunt placement H/O esophagogastroduodenoscopy (~07/2021) 09/2021 H/O thymectomy 1980s S/P appendectomy S/P cystourethroscopy with dilation of urethral stricture S/P tonsillectomy Family History Mother , 90 Diabetes Hypertension Stroke Father , 73 Neuropathy Back problem Depression Heart disease Stroke Brother Myasthenia gravis Depression Maternal Grandfather , 80's Diabetes Paternal Grandfather , 50 Heart disease Maternal Grandmother , 80 No problems noted. Paternal Grandmother , 70 No problems noted. Social History Smoking/Tobacco Use Status: Former Tobacco Use tobacco type: cigarettes Quit Date: 08/15/16 Tobacco: How many years used: 35 Smoking risk assessment performed?: Yes Alcohol Intake: former Drug use: Never Substance use type: does not use Household members: other Housing: snf Number of Children: 0 Pets and animals: No Current gender identity: female What type of physical activity do you participate in: none Seatbelt use: always Do you feel safe at home: Yes (Pt lives alone) Do you feel safe in your relationship?: Yes Time Spent with Patient Time Spent with Patient: 45-69 minutes Time was spent: preparing to see the patient(eg.review tests), obtaining and/or reviewing separately otained hiistory, indepentently interpreting results, counseling the patient and care coordination
[2022-10-02 19:34] VITALS: BP 106/64; PULSE 88; RESP 18; TEMP 36.4; O2SAT 94
[2022-10-02] MEDS: Cyclobenzaprine 10 MG TAB 20 MG PO (21:20)
[2022-10-02] MEDS: Lidocaine 5% Patch 1 PATCH TP (21:20)
[2022-10-02] MEDS: Zolpidem 5 MG TAB PO (21:25)
[2022-10-02 23:15] VITALS: BP 141/90; PULSE 95; RESP 19; TEMP 36.6; O2SAT 95
[2022-10-02] MEDS: HYDROmorphone 2 MG/ML SYR IVP (23:19)
[2022-10-03 02:57] VITALS: BP 110/72; PULSE 85; RESP 19; TEMP 37.1; O2SAT 95
[2022-10-03 06:38] LABS: HCT 31.7 % (36.0-46.0); MCH 28.3 pg (27.0-33.0); MCHC 31.5 % (32.0-36.0); MCV 90 fL (80-95); MPV 9.7 fL (8.0-11.0); Platelet Count 311 10^3/uL (130-400); RBC 3.53 10^6/uL (3.93-5.22); RDW 13.9 % (11.7-14.6); RDW-SD 45.2 fL; WBC 7.23 10^3/uL (4.4-10.8)
[2022-10-03 06:44] VITALS: BP 127/76; PULSE 88; RESP 20; TEMP 36.2; O2SAT 92
[2022-10-03] MEDS: Polyethylene Glycol 3350 17 GM PACKET PO (07:41)
[2022-10-03] MEDS: Normal Saline Flush 10 ML SYR IVP (07:41)
[2022-10-03] MEDS: Pantoprazole 40 MG TABCR PO (07:42)
[2022-10-03] MEDS: Metoprolol 12.5 MG TAB PO (07:42)
[2022-10-03] MEDS: Gabapentin 300 MG CAP PO (07:42)
[2022-10-03] MEDS: Enoxaparin 40 MG/0.4 ML SYR SC (07:42)
[2022-10-03] MEDS: Acetaminophen 325 MG TAB 650 MG PO (07:42)
[2022-10-03] MEDS: Acetylcysteine 600 MG CAP 1200 MG PO (07:42)
[2022-10-03] MEDS: amLODIPine 2.5 MG TAB PO (07:43)
[2022-10-03] MEDS: Lisinopril 10 MG TAB PO (07:43)
[2022-10-03] MEDS: Senna TAB 1 TAB PO (07:43)
[2022-10-03] MEDS: Docusate Sodium 100 MG CAP PO (07:43)
[2022-10-03] MEDS: Methocarbamol 500 MG TAB 1000 MG PO (07:43)
[2022-10-03] MEDS: Folic Acid 1 MG TAB PO (07:43)
[2022-10-03] MEDS: Lidocaine Patch Removal 1 EACH TP (09:22)
--- NOTE | 2022-10-03 09:58 | IN_ITS ---
PT Notes Visit Reasons: Closed Left Distal Femur Fracture Swing Bed (SB1,skilled) Physical Therapy Evaluation Date: [10/03/2022] Referring Doctor: [Pavithra Bliss] PT Orders: PT CONSULT: Precautions: standard?Per orthopod order:? Keep L knee in extension using knee immobilizer when OOB.? NWB on the L LE with AD.? Paraparetic,? wheelchair-bound.? Stand-squat transfers only after set up of wheelchair,? does better leading with R LE. Patient Profile/Admitting Diagnosis:Left distal femoral fracture, immobilized when OOB Orders received for this 67-year-old female with a history of myasthenia gravis, spinal cord decompression, spinal stenosis, and a host of multiple other health ailments presented to the ED on 09/25/2022 due to a fall that resulted to a non- displaced distal femoral fracture on the L side as seen on imaging.? Per Dr. Up,? patient is not a good surgical candidate and recommended immobilization of the L knee in extension using knee immobilizer for 4 weeks with patient NWB on the L LE with assistive device.?Pt has been receiving skilled PT while in inpatient services and was transitioned into swing late this morning. She had refused transfers to the wheelchair yesterday and today. Missy states that she does not remember how to do the transfers with assist I did relay this to the nurse Yanique. PMHX: All Active Problems?(Updated 09/25/22 @ 23:57 by Dioni Montgomery) Closed left femoral fracture (Acute) Weakness (Acute) Urinary retention (Acute) Urinary frequency (Acute) Pain (Acute) Hypokalemia (Acute) Frequent falls (Chronic) Dental caries (Acute) Bunion of unspecified foot (Acute) Intracranial arachnoid cyst (Chronic) GERD (gastroesophageal reflux disease) (Chronic) Asymptomatic microscopic hematuria (Acute) Chronic pain (Chronic) Chronic renal insufficiency (Acute) Left hand weakness (Acute) Ataxia (Acute) Constipation, chronic (Acute) POLST (Physician Orders for Life-Sustaining Treatment) (Acute) COLST completed 10/30/2020 with Jennifer Lugo, LABOR SERVICE REPRESENTATIVE, DNR/DNIDNR (do not resuscitate) (Acute) DNI (do not intubate) (Acute) Generalized weakness (Acute) Protein malnutrition (Acute) Left shoulder pain (Acute) Carpal tunnel syndrome of left wrist (Acute) Ulnar neuropathy of left upper extremity (Acute) Rupture of left proximal biceps tendon (Acute) Bursitis of left shoulder (Acute) Fluid collection at surgical site (Acute) Neurogenic bowel (Acute) Tachycardia (Acute) Elevated troponin (Acute) Palliative care patient (Acute) External bleeding hemorrhoids (Acute) Atelectasis (Acute) Oropharyngeal dysphagia (Acute) Fluid collection at surgical site (Acute) Palliative care patient (Acute) Urine abnormality (Acute) UTI (urinary tract infection) (Acute) Medical History? 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 H/O craniotomy ; L cerebellar arachnoid cyst drain with shunt placement H/O esophagogastroduodenoscopy (~07/2021) 09/2021 H/O thymectomy S/P appendectomy S/P cystouret Arthroscopy with dilation of urethral stricture S/P tonsillectomy Social History/Home Situation: Patient lives at home alone.? Main mode of mobility indoors and outdoors is wheelchair.? Receives meals on wheels.? HH aide comes in twice a week for an hour to help with bathing and some chores at home.? Goes to MD appointments visa [facility].?? Friend does grocery shopping. Equipment Owned/DME: Wheelchair Subjective: Missy states that she wanted to be clear that she is wheelchair- bound and does not understand why we have to do all of this. We have discussion about the importance of changing position and getting out of bed to maintain strength, circulation and progress patient when able to be able to transfer with least mobile unit assistant necessary. Objective: General inspection:? Supine in bed.? Brar catheter in place.? ? 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 KI in L LE Mental Status: Alert and oriented x 4 Pain: 6/10 in B LE with L worse ROM: Right Upper Extremity: ? Shoulder Flexion WFL. Shoulder abduction WFL. Elbow flexion WFL. Wrist flexion WFL. Functional opening and closing of hand limited Left Upper Extremity:? Shoulder Flexion WFL. Shoulder abduction WFL. Elbow flexion WFL. Wrist flexion WFL. Awkard opening and closing of hand WFL. Right Lower Extremity: Hip flexion allows up to 60 degrees. Hip abduction 25 degrees. Knee flexion up to 90 degrees passively. Ankle dorsiflexion 25 degrees. Ankle plantarflexion 25 degrees. Left Lower Extremity: Passive ankle DF 10, passive hip flexion in immobilizer 25 deg Strength: Right Upper Extremity: Shoulder flexors 4/5. Shoulder abductors 4/5. Elbow flexors 4-/5. Elbow extensors 4/5. Distribution Clerk weak but functional Left Upper Extremity: Shoulder flexors 4-/5. Shoulder abductors 4-/5. Elbow flexors 3+/5. Elbow extensors 4-/5. Distribution Clerk weak ? functional Right Lower Extremity: Hip flexors 2-/5. Hip abductors 2-/5. Knee flexors 2-/5. Knee extensors 2-/5. Ankle dorsiflexors 1/5. Ankle plantarflexors 2-/5. Left Lower Extremity: NT Sensation:? Impaired in B LE as to light touch and pain Bed Mobility/Transfers:Transfer to w/c had been being performed with assist of 1-3 per previous PT documentation, Pt. has refused x 2 days and states today doesn't understand the point, she is w/c bound, in pt education reviewed discussed the reasonings for doing this. forward-backward technique for bed<>wheelchair transfer 1. Patient is assisted so that her back is close to the edge of the bed 2.? Another caregiver positions the wheelchair perpendicular to the bed,? as close to the edge as possible.? Be sure that breaks are ON. 3.? Pillow is placed over the gap in between edge of bed and front edge of wheelchair seat for safety. 4.? Use draw sheet/white holly to slowly help patient scoot back into wheelchair as you instrcujt patient to slowly pish with B hands down against bed to lift? pelvis and scoot back. 5. Repeat the process until patient is safely on the wheelchair. 6.? For wheelchair to bed transfer,? do the reverse with the help of two caregivers for safety.? Ensure that patient contributes to the transfer by using B hands to push pelvis up and scoot forward or backward. Supine-sit: NT, pt refused, used trapeze to lift back x2 Sit-stand: NT Stand-sit: NT Gait:? Unable, patient is wheelchair-bound Balance: Static Sitting: Even with trapeze is unable to hold self in long sitting position in bed Dynamic Sitting: NT Static Standing: NT Dynamic Standing: NT Special Tests: Mobility Limitations Standardized Measure [facility] AM-PAC 6 clicks Basic Mobility Inpatient Short Form: Raw Score:?6 ? CMS Score:?100% deficit Informed Consent/Education:?Therapeutic Procedures [id number]' Patient was instructed in purpose of PT consult and plan of care. Agreeable to proceed with established PT POC to achieve personal goals. We discuss the importance of getting out of bed to avoid skin breakdown and to improve circulation and overall strength. She states that she doesn't remember how to transfer as she had on Tuesday. We do review activity that she should be doing while in bed of: 5 reps every 30 min to hour Right LE flex and extend as able(20 deg), Right Hi IR/ER(windshield wipers),quad sets(5sec holds). Bilateral glute squeeze (5sec), DF/PF(unable to have meaningful movement of right, using trapeze pull ups to assist for bed positioning, arms overhead, arms reach to ceiling, bend and straighten elbow. Sheet written and given at bedside to follow. We were able to perform single leg bridge with holding right LE in postion. ASSESSMENT: Limited by intermittent B LE spasms that bring pain level to 6/10 with attemtping to assess right LE.?Weightbearing status of left LE NWB combined with weakness of right LE and both UE making it difficult or unable to perform independently. Paraparetic from myasthenia gravis of 30 years, spinal stenosis,? and previous CVA.? Wheelchair bound and receives needed assistance at home, had been transferring independently at baseline.?Pt. states that it was the w/c fault she fell as the brake has been faulty. May benefit from the use of hopsital bed to allow more independence with bed mobility and transfers, also to insure safetly of home w/c.? Patient presents with clinical signs and symptoms consistent with current/admitting diagnoses that have resulted to mobility limitations, gait instability, generalized weakness, and overall ADL decline as demonstrated by the following impairment level findings: 1.? Decreased strength to B LE? major muscle groups 2.? Impaired , unable to assess sitting balance 3.? Impaired activity tolerance 4.? Limitation of joint range of motion in L hand, B LE joints 5.? Wheelchair bound, unable to assess transfer last documented bed to w/c was assist of 3 6.? Pain in L LE 7.? Intermittent spasms in B LE with L<<R Impairments are contributing to the following functional limitations: 1.? Decline in bed mobility skills, unable to perform without assist 2.? Decline in transfer skills, unable to perform bed to w/c without assist 3.? Difficulty with performing in bed exercises 4.? Increased completion time for mobility ADL performance 5.? Increased risk for falls 6.? Difficulty with managing alone safely Patient is assessed as a 26493 high complexity based on the following: History: 67-year-old female with past medical history as indicated above Examination: Demonstrable impairment in strength, balance, and mobility level with underlying impairments and functional limitations as exhibited above as well as deficit score of 100% utilizing the [facility] Mobility Inpatient Short Form Presentation: Evolving Decision Makin high complexity Goals: Goals X1 week 1. Supine-Sit? assit of 1 2. Sit-Supine? assist of 1 3. Sit-squat assist of 2 or less after set up of wheelchair 4. Squat to sit ? assist of 2 or less after set up of wheelchair 5. Wheelchair propulsion if left leg supported Plan of Care/Treatment Plan: 1-2x/day, 7 days/week x 2 weeks. Plan of care has been reviewed with the STOKER ERECTOR providing the service under Physical Therapy direction. Initiate Physical Therapy intervention for strengthening, bed mobility, transfers, gait, balance training, use of assistive device for transfers into w/c. DISCHARGE RECOMMENDATIONS:SNF as there is no way with her current status she can manage alone at home. [] ? Home with no services [] [] ? Home with services [] [] ? Home with outpatient PT [] [X] ? SNF for continued rehabilitation.? Patient will benefit from longterm facility placement for continued skilled physical therapy services in order to progress mobility level, strength, and balance in preparation for a safe discharge to home. [] ? Client Technical Support Associate Care [] [X] ? SNF versus LTC based on ability to participate and progress [] []? SNF vs.? PT based on progress towards goals TREATMENT CODE/TIME: 50043 x 15 minutes beginning at 12:30 PM. 81001 x 8'
--- NOTE | 2022-10-03 10:20 | PT.INTREAT ---
PT Notes Visit Reasons: Closed Left Distal Femur Fracture Inpatient Physical Therapy Treatment Note [facility] Date: 10/03/22 PRECAUTIONS:RALPH HUANG SUBJECTIVE: Pt reports that she does not want to get OOB. She states that the last time she did she was in the W/C for a very long time and she does not want to be stuck in the w/c again. We discussed picking a time that would work for her to stay in the chair and have all staff agree to get her back into bed at that time and pt still refused getting out of bed. We discussed how important it would be to have her practice this and to also sit up and pt still refused OOB to chair. OBJECTIVE: GAIT THEREX: Pt completed UE shoulder flexion x 20, rowing x 20, horz abd x 20, bicep curls 1# wt x 20, PNF D1, D2 x 10 B, partial sit ups in bed x 10, pull ups utilizing the trapeze 10, cw/ccw x 20. ASSESSMENT: Pt has been complaining of pain even with medication and has not been willing to get OOB this weekend. PLAN: Cont at per PT POC. TREATMENT CODE/TIME: 9:50-10:20 TPx 2
[2022-10-03 11:10] VITALS: BP 129/79; PULSE 77; RESP 17; TEMP 36.8; O2SAT 93
--- NOTE | 2022-10-04 08:30 | OT.INDS ---
Occupational Therapy Notes Occupational Therapy Inpatient Discharge Summary Date: 10/04/22 Dates of Service: 10/01/22-10/02/22 Referring Doctor:Julita Menendez NP OT Orders: Non Urgent Precautions: Fall, Standard, DNR/DNI *This document serves as a summary of care, no skilled OT services were provided for this documentation for transition of care to [facility] B1 status* PATIENT PROFILE/ADMITTING DIAGNOSIS: Pt is a 67 year old female who was admitted to Med Surg for the following dx of HTN, GERD, Myasthenia Gravis, neuropathic pain of (B) LE weakness, frequent falls, constipation, neurogenic bladder, closed fx of distal femur. Past Medical History: All Active Problems?(Updated 09/25/22 @ 23:57 by Dioni Montgomery) Closed left femoral fracture (Acute) Weakness (Acute) Urinary retention (Acute) Urinary frequency (Acute) Pain (Acute) Hypokalemia (Acute) Frequent falls (Chronic) Dental caries (Acute) Bunion of unspecified foot (Acute) Intracranial arachnoid cyst (Chronic) GERD (gastroesophageal reflux disease) (Chronic) Asymptomatic microscopic hematuria (Acute) Chronic pain (Chronic) Chronic renal insufficiency (Acute) Left hand weakness (Acute) Ataxia (Acute) Constipation, chronic (Acute) POLST (Physician Orders for Life-Sustaining Treatment) (Acute) COLST completed 10/30/2020 with MAUREEN Marley, DNR/DNIDNR (do not resuscitate) (Acute) DNI (do not intubate) (Acute) Generalized weakness (Acute) Protein malnutrition (Acute) Left shoulder pain (Acute) Carpal tunnel syndrome of left wrist (Acute) Ulnar neuropathy of left upper extremity (Acute) Rupture of left proximal biceps tendon (Acute) Bursitis of left shoulder (Acute) Fluid collection at surgical site (Acute) Neurogenic bowel (Acute) Tachycardia (Acute) Elevated troponin (Acute) Palliative care patient (Acute) External bleeding hemorrhoids (Acute) Atelectasis (Acute) Oropharyngeal dysphagia (Acute) Fluid collection at surgical site (Acute) Palliative care patient (Acute) Urine abnormality (Acute) UTI (urinary tract infection) (Acute) Medical History? Anxiety Arachnoid cyst COPD (chronic obstructive pulmonary disease) Depression Former smoker Gastric ulcer History of gluten intolerance History of lacunar cerebrovascular accident Hyperlipidemia Hypertension Insomnia previous misuse of AmbienLeft arm weakness Migraine headache without aura Myasthenia gravis Neurogenic bladder Neuropathic pain of both legs Peripheral neuropathy Prediabetes Spasticity Spinal stenosis Syrinx of spinal cord Starting at C3 and extending to T11 Surgical History? H/O craniotomy ; L cerebellar arachnoid cyst drain with shunt placementH/O esophagogastroduodenoscopy (~07/2021) 09/2021H/O thymectomy 1980sS/P appendectomy S/P cystourethroscopy with dilation of urethral stricture S/P tonsillectomy Social History/Home Situation: Pt lives alone in an apartment and has HH OT who comes in to (A) with her bathing routines. She states that she doesn't drive and doesn't like to walk around town. She has a friend who she is close with who helps with ADL/IADL tasks like laundry and home making tasks. She notes that she has a limited social support and doesn't tend to leave her apartment. She is reporting that she likes to be as (I) as possible but notes that sometimes she is fatigued. She has a tub shower and reports that her (A) comes from needing help with the transfer in but notes that this has improved since her last admission to [facility]. She also states that she gets meals on wheels and that they provide her with 1 meal per day and she has snacks for the other times she is hungry. She notes that she has some difficulty with cutting her food but her (B) UE fine motor control is fair-poor at this time. Equipment owned/DME: Wheelchair, Shower bench, grab bars SUBJECTIVE:?NT OBJECTIVE:? Per intial evaluation assessment- General Observation: Telemetry, IV, gomes in place Mental Status: A&Ox3 Pain: c/o pain in (B) LE and (L) UE ROM: RUE AROM WFL L UE AROM WFL STRENGTH: RUE 3/5 throughout LUE 2+/5 throughout FUNCTIONAL MOBILITY/ADLS:? BALANCE: Static sitting Good Dynamic Sitting Good SPECIAL TESTS:? Daily Activity Limitations Standardized Measure [facility] ? AM -PAC ? ?6 clicks? Daily Activity Inpatient Short Form: Raw score: 19 ? Standardized score: 40.22? CMS score: 42.80%? INFORMED CONSENT/EDUCATION: Pt instructed in purpose of OT Consult and plan of care. ASSESSMENT:?? Patient is a 67-year-old female referred to occupational therapy services with diagnosis of HTN, GERD, Myasthenia Gravis, neuropathic pain of (B) LE weakness, frequent falls, constipation, neurogenic bladder, closed fx of distal femur. Patient presents with clinical signs and symptoms consistent with dx, as demonstrated by the following impairment level findings/ functional limitations: Impairments ADL/IADL and leisure impairments, pain in (L) arm and (B) LE, numbness in (B) LE and decreased functional activity tolerance, impairments in functional mobility required for ADL performance. AMPAC score 19 Patient is assessed as a Moderate 60038 complexity based on the following: History: see above Examination: see functional limitations as noted above Presentation: evolving Decision Making: moderate complexity GOALS Goals x1 week 1. Oral Hygiene pt will be (I) sitting in bed with ideal technique 2.? Dressing sitting on side of the bed (I) 3.? Bathing in shower (I) seated 4.? Toileting on commode (I) PLAN OF CARE/TREATMENT PLAN: Discharge to [facility] level of care at this time. DISCHARGE RECOMMENDATIONS Due to pts decreased functional activity tolerance/ fx in her femur OT recommends that pt go [facility]F [place] [place] with continued HH services when medically cleared per MD. Pt is being discharged to [facility] B1 level of care at this time. TREATMENT TIME/MINUTES/CODES N/A Daya Cali, OTR/L [facility]
--- NOTE | 2022-10-20 13:06 | INDS_ITS ---
Date of service: 10/02/22 PT Notes Visit Reasons: Closed Left Distal Femur Fracture Physical Therapy Inpatient Discharge Summary Date: 09/27/2022 Dates of service: 09/27/2022 through 10/02/2022 This is a clinical summary of care provided for the duration of dates listed above. No charge was made in the completion of this documentation. Referring Doctor:? Kat Moran MD PT Orders: PT CONSULT: Limited ability Precautions: Standard.??Per orthopod order:? Keep L knee in extension using knee immobilizer when OOB.? NWB on the L LE with AD.? Paraparetic,? wheelchair-bound.? Stand-squat transfers only after set up of wheelchair,? does better leading with R LE. Patient Profile/Admitting Diagnosis: Orders received for this 67-year-old female with a history of myasthenia gravis, spinal cord decompression, spinal stenosis, and a host of multiple other health ailments presented to the ED on 09/25/2022 due to a fall that resulted to a non- displaced distal femoral fracture on the L side as seen on imaging.? Per Dr. Up,? patient is not a good surgical candidate and recommended immobilization of the L knee in extension using knee immobilizer for 4 weeks with patient NWB on the L LE with assistive device.?Converting to SB 1 on 10/03/2022. PMHX: All Active Problems?(Updated 09/25/22 @ 23:57 by Dioni Montgomery) Closed left femoral fracture (Acute) Weakness (Acute) Urinary retention (Acute) Urinary frequency (Acute) Pain (Acute) Hypokalemia (Acute) Frequent falls (Chronic) Dental caries (Acute) Bunion of unspecified foot (Acute) Intracranial arachnoid cyst (Chronic) GERD (gastroesophageal reflux disease) (Chronic) Asymptomatic microscopic hematuria (Acute) Chronic pain (Chronic) Chronic renal insufficiency (Acute) Left hand weakness (Acute) Ataxia (Acute) Constipation, chronic (Acute) POLST (Physician Orders for Life-Sustaining Treatment) (Acute) COLST completed 10/30/2020 with MAUREEN Marley, DNR/DNIDNR (do not resuscitate) (Acute) DNI (do not intubate) (Acute) Generalized weakness (Acute) Protein malnutrition (Acute) Left shoulder pain (Acute) Carpal tunnel syndrome of left wrist (Acute) Ulnar neuropathy of left upper extremity (Acute) Rupture of left proximal biceps tendon (Acute) Bursitis of left shoulder (Acute) Fluid collection at surgical site (Acute) Neurogenic bowel (Acute) Tachycardia (Acute) Elevated troponin (Acute) Palliative care patient (Acute) External bleeding hemorrhoids (Acute) Atelectasis (Acute) Oropharyngeal dysphagia (Acute) Fluid collection at surgical site (Acute) Palliative care patient (Acute) Urine abnormality (Acute) UTI (urinary tract infection) (Acute) Medical History? 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 H/O craniotomy ; L cerebellar arachnoid cyst drain with shunt placement H/O esophagogastroduodenoscopy (~07/2021) 09/2021 H/O thymectomy S/P appendectomy S/P cystouret Arthroscopy with dilation of urethral stricture S/P tonsillectomy Social History/Home Situation: Patient lives at home alone.? Main mode of mobility indoors and outdoors is wheelchair.? Receives meals on wheels.? HH aide comes in twice a week for an hour to help with bathing and some chores at home.? Goes to MD appointments visa [facility].?? Friend does grocery shopping. Equipment Owned/DME: Wheelchair Subjective: NT. See most recent AVIATION SAFETY EQUIPMENT TECHNICIAN notes. Objective: General inspection:? NT. See most recent AVIATION SAFETY EQUIPMENT TECHNICIAN notes. Mental Status: NT. See most recent AVIATION SAFETY EQUIPMENT TECHNICIAN notes. Pain: NT. See most recent AVIATION SAFETY EQUIPMENT TECHNICIAN notes. ROM: Right Upper Extremity: ? Shoulder Flexion WFL. Shoulder abduction WFL. Elbow flexion WFL. Wrist flexion WFL. Functional opening and closing of hand limited Left Upper Extremity:? Shoulder Flexion WFL. Shoulder abduction WFL. Elbow flexion WFL. Wrist flexion WFL. Functional opening and closing of hand WFL. Right Lower Extremity: Hip flexion allows up to 90 degrees. Hip abduction 10 degrees. Knee flexion up to 90 degrees passively. Ankle dorsiflexion 5 degrees. Ankle plantarflexion 5 degrees. Left Lower Extremity: NT Strength: Right Upper Extremity: Shoulder flexors 4-/5. Shoulder abductors 4-/5. Elbow flexors 4-/5. Elbow extensors 4-/5. Spring Intern weak but functional Left Upper Extremity: Shoulder flexors 4-/5. Shoulder abductors 4-/5. Elbow flexors 4-/5. Elbow extensors 4-/5. Spring Intern weak but functional Right Lower Extremity: Hip flexors 3-/5. Hip abductors 2-/5. Knee flexors 2-/5. Knee extensors 2-/5. Ankle dorsiflexors 2-/5. Ankle plantarflexors 3-/5. Left Lower Extremity: NT Sensation:? Impaired in B UE as to light touch and pain Bed Mobility/Transfers: Bed to wheelchair assist of 2 for safety using backward technique ensure L knee is in extension throughout transfer Wheelchair to bed assist of 2 for safety using forward technique,? ensure L knee is in extension throughout transfer THERA EX: Mini chair push ups while doing forward-backward transfer and while seated on wheelchair for 5 reps each time. Ankle DF/PF x 20 Heel slide with R LE x 5 Balance: Static Sitting: Good Dynamic Sitting: Fair Static Standing: Unable due to WB precaution and weakness Dynamic Standing: Unable due to WB precaution and weakness ASSESSMENT: Paraparetic from myasthenia gravis of 30 years, spinal stenosis,? and previous CVA.? Wheelchair bound and receives needed assistance at home.? May benefit from the use of hopsital bed to allow more independence with bed mobility and transfers.? Patient presents with clinical signs and symptoms consistent with current/admitting diagnoses that have resulted to mobility limitations, gait instability, generalized weakness, and overall ADL decline as demonstrated by the following impairment level findings: 1.? Decreased strength to B LE? major muscle groups 2.? Impaired sitting balance 3.? Impaired activity tolerance 4.? Limitation of joint range of motion in L hand, B UE joints 5.? Wheelchair bound 6.? Pain in L UE 7.? Intermittent spasms in B LE with L<<R Impairments are contributing to the following functional limitations: 1.? Decline in bed mobility skills 2.? Decline in transfer skills 3.? Difficulty with ambulation without assistive device and physical assistance 4.? Increased completion time for mobility ADL performance 5.? Increased risk for falls 6.? Difficulty with managing steps alone safely Goals: Goals X1 week 1. Supine-Sit? independent NOT MET 2. Sit-Supine? independent NOT MET 3. Sit-squat independent after set up of wheelchair NOT MET 4. Squat to sit ? independent after set up of wheelchair NOT MET 5. Wheelchair propulsion independent NOT MET DISCHARGE RECOMMENDATIONS: [] ? Home with no services [] [] ? Home with services [] [] ? Home with outpatient PT [] [X] ? SNF for continued rehabilitation.? Patient will benefit from [facility] for continued skilled physical therapy services in order to progress mobility level, strength, and balance in preparation for a safe discharge to home. [] ? Residential Care [] [] ? SNF versus LTC based on ability to participate and progress [] [X]? SNF vs.? PT based on progress towards goals TREATMENT CODE/TIME: NV Thank you for the opportunity to participate in the care of this patient. Ching Viveros PT, DPT, CLT [facility] [place], [place]
== END 2022-10-03 11:16 | disposition swing bed (61) | DRG 534 ==
LOC: ER 22:08 → MS 23:36
PROVIDERS: Emergency Medicine; Internal Medicine; Nurse Practitioner Acute Care; Nurse Practitioner Family; Admitting Provider Family Medicine; Emergency Provider Emergency Medicine; PCP Nurse Practitioner Family; Visit Provider Family Medicine
DX: S72.492A Other fracture of lower end of left femur, initial encounter for closed fracture (principal); E46 Unspecified protein-calorie malnutrition; K59.2 Neurogenic bowel, not elsewhere classified; G82.20 Paraplegia, unspecified; G70.00 Myasthenia gravis without (acute) exacerbation; W19.XXXA Unspecified fall, initial encounter; R53.1 Weakness; R33.9 Retention of urine, unspecified; E87.6 Hypokalemia; R29.6 Repeated falls; K02.9 Dental caries, unspecified; K21.9 Gastro-esophageal reflux disease without esophagitis; G89.4 Chronic pain syndrome; N18.9 Chronic kidney disease, unspecified; K59.09 Other constipation; Z66 Do not resuscitate; R13.12 Dysphagia, oropharyngeal phase; J44.9 Chronic obstructive pulmonary disease, unspecified; F32.A Depression, unspecified; Z86.73 Personal history of transient ischemic attack (TIA), and cerebral infarction without residual deficits; N31.9 Neuromuscular dysfunction of bladder, unspecified; R73.03 Prediabetes; G62.9 Polyneuropathy, unspecified; M48.00 Spinal stenosis, site unspecified; I12.9 Hypertensive chronic kidney disease with stage 1 through stage 4 chronic kidney disease, or unspecified chronic kidney disease; Z87.440 Personal history of urinary (tract) infections
CPT/HCPCS: 29505; 36415; 73562; 80048; 80053; 85027; 87635; 93005; 96374; 97110; 97163; 97530; 99223; 99285; J1650; 71045; 73560; 73700; 81003; 81015; 83735; 85025; 85610; 87086; 93010; 99232; 99233; 99239; J1170; J1644; J1885; J2270; J3010; J3490

== ENCOUNTER 2022-10-03 10:56 | Inpatient (IN) | payer OTHER, SELFPAY ==
--- NOTE | 2022-10-02 16:45 | CMPROGNOTE_ITS ---
- If Service Date Differs Date of service: 10/02/22 Time of Service: 16:45 Care Management Progress Note S/O: Missy will transition to SWB1 today, where she will continue to work with PT on safe transfers while non weight bearing. She is unable to return home due to living alone, and the inability to care for herself while she is non weight bearing. Referrals were sent to several facilities with no bed offers. A PA was submitted to [facility] for her skilled stay. She has also applied for [facility], which is pending. CM will submit an 804 to [facility] for this stay, if [facility] does not approve the PA, or only agrees to pay for a portion of the stay. She will likely remain in SWB for 6-8 weeks, while she is immobile. CM will continue to follow. A: Missy is a 67 year old woman admitted om 09/25/22 with a fractured femur P: Missy would benefit from short term rehab in a [facility] facility but not having a Medicare supplement has been a barrier. Referrals were sent to several facilities who declined to offer her a bed, citing lack of a payer source as the reason. CM sent a referral to [employer] to explore the possibility of Missy getting Medicaid. The application has been submitted but it is unknown when a response will be received. It is likely that Missy will be transitioned to SB-1 for the 6-8 weeks of immobility that she requires. CM will continue to support Missy and assess for ongoing discharge concerns.
--- NOTE | 2022-10-02 16:46 | CM.SWINGPC ---
- If Service Date Differs Date of service: 10/02/22 Time of Service: 16:46 Swingbed Plan of Care Plan of care: SWING BED PROGRAM ACTIVITIES/DISCHARGE PLAN OF CARE ACTIVITIES PLAN Date: 10/02/22 Identified Need: Life enrichment during prolonged hospitalization on SWB 1. Intervention/Plan: TV, music, word search books, sketching book/colored pencils (brought by a friend). Activity cart items as requested. Initials KM DISCHARGE PLAN Date: 10/02/22 Identified Need: Safe discharge to alternate facility vs home once her mobility improves and she is able to bear weight. Intervention/Plan: Continue to work with PT to improve independence with mobility, once weight bearing restriction is lifted, and she is able to return home with services Initials KM
--- NOTE | 2022-10-02 16:50 | CMSA_ITS ---
- If Service Date Differs Date of service: 10/02/22 Time of Service: 16:50 SB Psychosocial/Act.Assessment - Hospital Admission Admission Date: 09/25/22 Admission From:: Home Diagnosis:: Closed Left Distal Femur Fracture - Social Supports PREVIOUS FUNCTIONAL STATUS/SOCIAL/FAMILY SUPPORTS:: Missy lives alone in an apartment in the [facility].She does not have any family in the area and only communicates with her [id number] in [place]. Missy has myasthenia gravis and requires assistance. At baseline she is able to transfer bed to chair/wheelchair and commode and back. She has OT support through [facility] for assistance with showering twice a week and RN visits every other week. Missy has [facility] moderate needs and has a friend Nina Trinidad who has been helping her and is paid through that program. She does grocery shopping, housekeeping and laundry for Missy. - Prior to Admission Living Arrangements/Environment Prior to Admission:: Missy lives at the [facility] in an apartment alone. She has RN (every other week) and OT (twice a week). She has [facility] moderate needs, and has her friend Nina Trinidad helping her, as a paid caregiver through this service. Nina helps with grocery shopping, housekeeping and laundry. Missy also has [facility] delivered to her. - Education Highest Grade Completed:: 12th- High School graduate. Where did you attend School:: Home School - Work History Employment Status:: Retired Voacation:: [facility] - : No 's Spouse: No - Benefits Financial: Social Security, Commerical - Scientologist Active Jehovah'S Witness Member:: No - Advance Directives for Healthcare Advance Directives for Healthcare: Advance Directives Advance Directive Agent: Sister in law, Niharika Kim listed as agent. - Community Community Supports/Involvement: [facility], [employer] Moderate needs - Interests Hobbies:: drawing/sketching, word search TV/Movies:: enjoys TV/movies - Present Functional Status Physical Abilities:: Limited at baseline, currently non weight bearing d/t fracture Cognitive:: Intact, A/O Communication:: Clear, appropriate Sensory Systems: Intact Behavior:: Cooperative, appropriate, pleasant - Medical History PAST MEDICAL HISTORY/PAST SURGICAL HISTORY:: All Active Problems (Updated 09/25/22 @ 23:57 by Dioni Montgomery). Closed left femoral fracture (Acute). Weakness (Acute). Urinary retention (Acute). Urinary frequency (Acute). Pain (Acute). Hypokalemia (Acute). Frequent falls (Chronic). Dental caries (Acute). Bunion of unspecified foot (Acute). Intracranial arachnoid cyst (Chronic). GERD (gastroesophageal reflux disease) (Chronic). Asymptomatic microscopic hematuria (Acute). Chronic pain (Chronic). Chronic renal insufficiency (Acute). Left hand weakness (Acute). Ataxia (Acute). Constipation, chronic (Acute). POLST (Physician Orders for Life-Sustaining Treatment) (Acute). COLST completed 10/30/2020 with Jennifer Lugo, MAUREEN, DNR/DNI. DNR (do not resuscitate) (Acute). DNI (do not intubate) (Acute). Generalized weakness (Acute). Protein malnutrition (Acute). Left shoulder pain (Acute). Carpal tunnel syndrome of left wrist (Acute). Ulnar neuropathy of left upper extremity (Acute). Rupture of left proximal biceps tendon (Acute). Bursitis of left shoulder (Acute). Fluid collection at surgical site (Acute). Neurogenic bowel (Acute). Tachycardia (Acute). Elevated troponin (Acute). Palliative care patient (Acute). External bleeding hemorrhoids (Acute). Atelectasis (Acute). Oropharyngeal dysphagia (Acute). Fluid collection at surgical site (Acute). Palliative care patient (Acute). Urine abnormality (Acute). UTI (urinary tract infection) (Acute). Medical History . Anxiety. Arachnoid cyst. COPD (chronic obstructive pulmonary disease). Depression. Former smoker. Gastric ulcer. History of gluten intolerance. History of lacunar cerebrovascular accident. Hyperlipidemia. Hypertension. Insomnia. previous misuse of Ambien. Left arm weakness. Migraine headache without aura. Myasthenia gravis. Neurogenic bladder. Neuropathic pain of both legs. Peripheral neuropathy. Prediabetes. Spasticity. Spinal stenosis. Syrinx of spinal cord. Starting at C3 and extending to T11. Surgical History . H/O craniotomy. ; L cerebellar arachnoid cyst drain with shunt placement. H/O esophagogastroduodenoscopy (~07/2021). 09/2021. H/O thymectomy. 1980s. S/P appendectomy. S/P cystourethroscopy with dilation of urethral stricture. S/P tonsillectomy - Admission Data Reason for Swing Bed Admission:: Missy in non weight bearing and cannot live s afely alone at this time. She will work with PT/OT to increase independence with mobility/transfers until she is able to bear weight. Discharge Plan:: Missy will return home once she is able, likely after she is able to bear weight and transfer independently. Assessment: Missy will remain in SWB1 for her to continue to work with PT/OT while she is non weight bearing. She will progress toward indpendence with mobility/transfers once she is able to bear weight. Customer Operations Representative: Yas Garcia Date Assessment was completed:: 10/02/22
--- NOTE | 2022-10-03 11:05 | HPE_ITS ---
Date of service: 10/03/22 Time of Service: 11:05 Assessment and Plan Assessment and plan (1) Closed fracture of left distal femur: Status: Acute Assessment and plan: 67 year old female with Left intra-articular minimally displaced distal femur fx after a fall at assisted living facility where she lives Trial of nonoperative management. Maintain Left knee immobilizer: While patient is resting in bed and not repositioning or moving, knee immobilizer should be opened up or at least loosened to reduce pressure on skin and chance of skin breakdown. Knee immobilizer should be relatively snug during repositioning and while out of bed. Maintain knee straight in full extension for 4 weeks. Non-weight bearing left lower extremity about 6-8 weeks. Replace soft roll padding and/or Elvis bandage as needed to protect skin from knee immobilizer. Follow-up with trauma purchasing specialist Dr. Alok Byrd at [facility] (2) Hypertension: Status: Chronic Assessment and plan: blood pressures improved with medication reductions continue to monitor blood pressure and adjust meds as needed. (3) Myasthenia gravis: Status: Chronic Assessment and plan: Stable and at baseline Continue outpatient medical therapy (4) Spinal stenosis: Assessment and plan: With chronic pain and paraplegia. Physical therapy (5) GERD (gastroesophageal reflux disease): Status: Chronic Assessment and plan: Continue PPI. (6) Neurogenic bladder: Status: Chronic Assessment and plan: With history of frequent UTIs, urinalysis done - negative (7) Pain: Status: Acute Assessment and plan: Fentanyl patch was increased to 100 mcg change every 72 hours with improvement oxycodone added apap scheduled Spasm - methocarbamol prn (8) Constipation, chronic: Status: Chronic Assessment and plan: continue bowel regimen and prn relistor as needed (9) DVT prophylaxis: Status: Acute Assessment and plan: Enoxaparin 40 mg sc (10) Discharge planning issues: Status: Acute Assessment and plan: plan for rehab is 6-8 weeks with no surgical intervention Case management is following for discharge planning Discussed with Dr Hsieh History of Present Illness History of Present Illness Chief Complaint: left leg pain, fracture Narrative: This is a 67-year-old female patient brought to the ED on Sep 25 2022 for pain in the left knee after a fall when she was pivoting from wheelchair to bed.? She has not walked for more than a year secondary to spinal stenosis. She does have a history of myasthenia gravis since she was in her 30s.? She also has chronic pain on fentanyl and takes Lasix daily for peripheral edema with no history of CHF and no orthostasis or dizziness prompting fall.? This fall was simply from instability with transferring.An orthopedic consult was sought as initially she was thought to be a surgical candidate. Our CREDIT DIRECTOR here reviewed the case and did not feel she was appropriate for this facility and transfer was requested but due to capacity there was no facility to transfer her to. We had orthopedics at our facility evaluate her and although surgical intervention may optimize healing it was felt that due to her baseline immobility and minimal fracture displacement it would be reasonable to trial nonoperative management. She was placed in a knee immobilizer with instruction to loosen when in bed to reduce pressure areas on the skin. She is to remain in full extension with straight knee for 4 weeks and that she will be nonweightbearing to that left lower extremity for 6 to 8 weeks. She will follow-up with [facility] Dr. Alok Byrd outpatient. Her pain medications have been adjusted. She is remained medically stable's been eating and drinking bowels and bladder functioning well. She is maintained indwelling Brar catheter. Due to her nonweightbearing status referrals were placed to swing facilities but she has not been accepted. She will remain here under intermediate and PT Review of Systems All systems reviewed & are unremarkable except as noted in HPI and below PFSH All Active Problems (Updated 10/01/22 @ 10:47 by Jennifer Lugo NP) Ambulatory dysfunction (Acute) Hypertension (Chronic) GERD (gastroesophageal reflux disease) (Chronic) Myasthenia gravis (Chronic) Neuropathic pain of both legs (Chronic) Weakness (Acute) Pain (Acute) Frequent falls (Chronic) Constipation, chronic (Chronic) Discharge planning issues (Acute) Neurogenic bladder (Chronic) Closed fracture of left distal femur (Acute 09/25/22) DVT prophylaxis (Acute) Medical History Acute hypokalemia Acute hyponatremia Alcohol abuse history of Anxiety Arachnoid cyst Asymptomatic microscopic hematuria Ataxia Atelectasis Bunion of unspecified foot Bursitis of left shoulder Carpal tunnel syndrome of left wrist Chronic pain Chronic renal insufficiency COPD (chronic obstructive pulmonary disease) Dental caries Depression DNI (do not intubate) DNR (do not resuscitate) Elevated troponin External bleeding hemorrhoids Fluid collection at surgical site Fluid collection at surgical site Former smoker Gastric ulcer Generalized weakness History of gluten intolerance History of lacunar cerebrovascular accident Hyperlipidemia Hypokalemia Hypomagnesemia Hypoxia Insomnia previous misuse of Ambien Intracranial arachnoid cyst Left arm weakness Left hand weakness Left shoulder pain Migraine headache without aura Neurogenic bowel Oropharyngeal dysphagia Palliative care patient Palliative care patient Peripheral neuropathy POLST (Physician Orders for Life-Sustaining Treatment) COLST completed 10/30/2020 with Jennifer Lugo, [employer] ROOM SUPERVISOR, DNR/DNI Prediabetes Prerenal azotemia Protein malnutrition Rupture of left proximal biceps tendon Spasticity Spinal stenosis Syrinx of spinal cord Starting at C3 and extending to T11 Tachycardia Ulnar neuropathy of left upper extremity Urinary frequency Urinary retention Urine abnormality UTI (urinary tract infection) Surgical History H/O craniotomy ; L cerebellar arachnoid cyst drain with shunt placement H/O esophagogastroduodenoscopy (~07/2021) 09/2021 H/O thymectomy 1980s S/P appendectomy S/P cystourethroscopy with dilation of urethral stricture S/P tonsillectomy Family History Mother , 90 Diabetes Hypertension Stroke Father , 73 Neuropathy Back problem Depression Heart disease Stroke Brother Myasthenia gravis Depression Maternal Grandfather , 80's Diabetes Paternal Grandfather , 50 Heart disease Maternal Grandmother , 80 No problems noted. Paternal Grandmother , 70 No problems noted. Social History Smoking/Tobacco Use Status: Former Tobacco Use tobacco type: cigarettes Quit Date: 08/15/16 Tobacco: How many years used: 35 Smoking risk assessment performed?: Yes Alcohol Intake: former Drug use: Never Substance use type: does not use Household members: other Housing: group home Number of Children: 0 Pets and animals: No Current gender identity: female What type of physical activity do you participate in: none Seatbelt use: always Do you feel safe at home: Yes (Pt lives alone) Do you feel safe in your relationship?: Yes Meds Allergies and Home Medications Allergies Allergy/AdvReac Type Severity Reaction Status Date / Time codeine Allergy Severe pt unsure Verified 07/05/22 14:43 of reaction iodine Allergy Severe pt unsure Verified 07/05/22 14:43 of reaction Penicillins Allergy Severe Anaphylaxsi Verified 07/05/22 14:43 s Sulfa (Sulfonamide Allergy Severe Swelling/Ed Verified 07/05/22 14:43 Antibiotics) kendal trazodone AdvReac Intermediate PER PT Verified 07/05/22 14:43 MAKES HER HEART RACE. Home Medications Medication Instructions Recorded Confirmed Type acetaminophen 500 mg tablet 1,000 mg PO TID PRN PRN pain #90 03/13/21 10/03/22 Rx tabs sennosides 8.6 mg tablet 8.6 mg PO BID PRN 04/16/21 10/03/22 History ondansetron 4 mg disintegrating 4 mg PO Q8H PRN nausea and 07/03/21 10/03/22 Rx tablet vomiting #30 tabs folic acid 1 mg tablet 1 mg PO DAILY AM #30 tabs 07/14/21 10/03/22 Rx cyclobenzaprine 10 mg tablet See Rx Instructions PO .COMPLEX 01/04/22 10/03/22 Rx #270 tabs lisinopril 5 mg tablet 20 mg PO DAILY 02/03/22 10/03/22 History furosemide 20 mg tablet 20 mg PO DAILY #30 tabs 03/18/22 10/03/22 Rx lidocaine 5 % topical patch See Rx Instructions .Route 05/10/22 10/03/22 Rx .COMPLEX #30 patches acetylcysteine 600 mg capsule 1,200 mg PO BID #120 caps 05/31/22 10/03/22 Rx pyridostigmine bromide 180 mg See Rx Instructions .Route 06/03/22 10/03/22 Rx tablet,extended release .COMPLEX #90 tabs amlodipine 2.5 mg tablet 2.5 mg PO DAILY 07/30/22 10/03/22 History ciclopirox 8 % topical solution 1 applic topical DAILY 07/30/22 10/03/22 History polyethylene glycol 3350 17 gram 17 g PO DAILY 07/30/22 10/03/22 History oral powder packet tizanidine 2 mg tablet 2 mg PO QHS PRN 07/30/22 10/03/22 History gabapentin 300 mg capsule See Rx Instructions .Route 08/17/22 10/03/22 Rx .COMPLEX #450 caps fentanyl 75 mcg/hr transdermal 1 patch transdermal Q72H #10 ea 09/14/22 10/03/22 Rx patch zolpidem 5 mg tablet (Ambien) 5 mg PO QHS PRN insomnia #30 tabs 09/14/22 10/03/22 Rx levofloxacin 750 mg tablet 750 mg PO DAILY 7 days #7 tabs 09/25/22 10/03/22 Rx pantoprazole 40 mg tablet,delayed 40 mg PO DAILY 10/03/22 10/03/22 History release Exam Const General: cooperative and no acute distress Orientation: alert, awake and oriented x3 HENMT Head: normal to inspection Face and sinus: normal facial exam Eyes General: appearance normal, both eyes and all related structures Pupils: PERRL EOM: EOM intact bilaterally Neck Neck: normal visual inspection and No submandibular swelling Lymphatic: no lymphadenopathy noted Chest Chest: normal inspection of the chest and no tenderness Resp Effort & Inspection: normal respiratory effort and able to speak in complete sentences Auscultation: clear to auscultation bilaterally Cardio Rate: regular rate Rhythm: regular rhythm GI Inspection: normal to inspection Palpation: soft, not firm, not rigid and nontender Auscultation: normal bowel sounds Back/Spine/Pelvis Thoracic/Lumbar Spine: thoracic and lumbar spine normal to inspection Pelvis: no pain with anterior-posterior compression Skin General skin exam: no rashes or lesions noted Neuro General: patient alert, patient awake and patient oriented x3 Cognition: normal cognition Speech: speech normal Motor: muscle tone normal throughout Sensory Exam: no sensory deficits noted Extrem General: capillary refill normal Right upper extremity: normal to inspection Left upper extremity: normal to inspection Right lower extremity: normal to inspection Left lower extremity: normal to inspection (knee immobilizer in place) and normal capillary refill Psych Appearance: grossly normal Mental Status: mental status grossly normal Speech and Movement: speech and movement normal Affect: normal affect Time Spent Time spent with Patient: 40-54 minutes Time was spent: preparing to see the patient(eg.review tests), ordering medications,tests, procedures and care coordination
[2022-10-03] MEDS: fentaNYL 100 MCG PATCH TD (11:53)
[2022-10-03] MEDS: Methocarbamol 500 MG TAB 1000 MG PO ×3 (11:53→19:39)
[2022-10-03] MEDS: Acetaminophen 325 MG TAB 650 MG PO ×3 (11:53→19:39)
[2022-10-03] MEDS: HYDROmorphone 2 MG/ML VIAL IVP ×2 (12:54→19:37)
--- NOTE | 2022-10-03 14:06 | NUR.NOTE ---
Nursing Note: Patient transfer from inpatient to swing bed. Med rec done.
[2022-10-03] MEDS: Docusate Sodium 100 MG CAP PO ×2 (14:09→19:39)
[2022-10-03 15:00] VITALS: BP 131/87; PULSE 91; RESP 17; TEMP 37.1; O2SAT 96
[2022-10-03 15:09] VITALS: BP 131/78; PULSE 91; RESP 17; TEMP 37.1; O2SAT 96
[2022-10-03] MEDS: oxyCODONE 5 MG TAB PO (16:06)
[2022-10-03 19:34] VITALS: BP 120/60; PULSE 99; RESP 15; TEMP 37.1; O2SAT 99
[2022-10-03] MEDS: Normal Saline Flush 10 ML SYR IVP (19:38)
[2022-10-03] MEDS: Senna TAB 1 TAB PO (19:39)
[2022-10-03] MEDS: Metoprolol 12.5 MG TAB PO (19:39)
[2022-10-03] MEDS: Polyethylene Glycol 3350 17 GM PACKET PO (19:39)
[2022-10-03] MEDS: Gabapentin 300 MG CAP PO (19:40)
[2022-10-03] MEDS: Acetylcysteine 600 MG CAP 1200 MG PO (19:40)
[2022-10-03] MEDS: Zolpidem 5 MG TAB PO (21:29)
[2022-10-03] MEDS: Cyclobenzaprine 10 MG TAB 20 MG PO (21:29)
[2022-10-04] MEDS: oxyCODONE 5 MG TAB PO (00:11)
[2022-10-04] MEDS: HYDROmorphone 2 MG/ML VIAL IVP ×4 (03:03→19:32)
[2022-10-04] MEDS: Normal Saline Flush 10 ML SYR IVP ×4 (03:03→19:34)
[2022-10-04 07:37] VITALS: BP 110/71; PULSE 93; RESP 16; TEMP 36.7; O2SAT 95
[2022-10-04] MEDS: Metoprolol 12.5 MG TAB PO ×2 (08:33→19:33)
[2022-10-04] MEDS: Senna TAB 1 TAB PO ×2 (08:33→19:33)
[2022-10-04] MEDS: Folic Acid 1 MG TAB PO (08:33)
[2022-10-04] MEDS: Polyethylene Glycol 3350 17 GM PACKET PO (08:33)
[2022-10-04] MEDS: Gabapentin 300 MG CAP PO ×2 (08:33→19:34)
[2022-10-04] MEDS: Methocarbamol 500 MG TAB 1000 MG PO ×4 (08:33→19:33)
[2022-10-04] MEDS: Enoxaparin 40 MG/0.4 ML SYR SC (08:33)
[2022-10-04] MEDS: Acetylcysteine 600 MG CAP 1200 MG PO ×2 (08:33→19:34)
[2022-10-04] MEDS: Acetaminophen 325 MG TAB 650 MG PO ×4 (08:33→19:33)
[2022-10-04] MEDS: Lisinopril 10 MG TAB PO (08:34)
[2022-10-04] MEDS: Pantoprazole 40 MG TABCR PO (08:34)
[2022-10-04] MEDS: amLODIPine 2.5 MG TAB PO (08:34)
[2022-10-04] MEDS: Docusate Sodium 100 MG CAP PO ×3 (08:34→19:34)
--- NOTE | 2022-10-04 08:46 | OT.INIE ---
Occupational Therapy Notes Inpatient Occupational Therapy [facility] B1 Evaluation Date: 10/04/22 Referring Doctor:Pavithra Bliss NP OT Orders: Non Urgent Precautions: Fall, Standard, DNR/DNI PATIENT PROFILE/ADMITTING DIAGNOSIS: Pt is a 67 year old female who was admitted to [facility] for the following dx of HTN, GERD, Myasthenia Gravis, neuropathic pain of (B) LE weakness, frequent falls, constipation, neurogenic bladder, closed fx of distal femur she was recently transition to [facility] B1 level of care at this time. Past Medical History: All Active Problems Closed left femoral fracture (Acute) Weakness (Acute) Urinary retention (Acute) Urinary frequency (Acute) Pain (Acute) Hypokalemia (Acute) Frequent falls (Chronic) Dental caries (Acute) Bunion of unspecified foot (Acute) Intracranial arachnoid cyst (Chronic) GERD (gastroesophageal reflux disease) (Chronic) Asymptomatic microscopic hematuria (Acute) Chronic pain (Chronic) Chronic renal insufficiency (Acute) Left hand weakness (Acute) Ataxia (Acute) Constipation, chronic (Acute) POLST (Physician Orders for Life-Sustaining Treatment) (Acute) COLST completed 10/30/2020 with MAUREEN Marley, DNR/DNIDNR (do not resuscitate) (Acute) DNI (do not intubate) (Acute) Generalized weakness (Acute) Protein malnutrition (Acute) Left shoulder pain (Acute) Carpal tunnel syndrome of left wrist (Acute) Ulnar neuropathy of left upper extremity (Acute) Rupture of left proximal biceps tendon (Acute) Bursitis of left shoulder (Acute) Fluid collection at surgical site (Acute) Neurogenic bowel (Acute) Tachycardia (Acute) Elevated troponin (Acute) Palliative care patient (Acute) External bleeding hemorrhoids (Acute) Atelectasis (Acute) Oropharyngeal dysphagia (Acute) Fluid collection at surgical site (Acute) Palliative care patient (Acute) Urine abnormality (Acute) UTI (urinary tract infection) (Acute) Medical History? Anxiety Arachnoid cyst COPD (chronic obstructive pulmonary disease) Depression Former smoker Gastric ulcer History of gluten intolerance History of lacunar cerebrovascular accident Hyperlipidemia Hypertension Insomnia previous misuse of AmbienLeft arm weakness Migraine headache without aura Myasthenia gravis Neurogenic bladder Neuropathic pain of both legs Peripheral neuropathy Prediabetes Spasticity Spinal stenosis Syrinx of spinal cord Starting at C3 and extending to T11 Surgical History? H/O craniotomy ; L cerebellar arachnoid cyst drain with shunt placementH/O esophagogastroduodenoscopy (~07/2021) 09/2021H/O thymectomy 1980sS/P appendectomy S/P cystourethroscopy with dilation of urethral stricture S/P tonsillectomy Social History/Home Situation: Pt lives alone in an apartment and has HH OT who comes in to (A) with her bathing routines. She states that she doesn't drive and doesn't like to walk around town. She has a friend who she is close with who helps with ADL/IADL tasks like laundry and home making tasks. She notes that she has a limited social support and doesn't tend to leave her apartment. She is reporting that she likes to be as (I) as possible but notes that sometimes she is fatigued. She has a tub shower and reports that her (A) comes from needing help with the transfer in but notes that this has improved since her last admission to [facility]. She also states that she gets meals on wheels and that they provide her with 1 meal per day and she has snacks for the other times she is hungry. She notes that she has some difficulty with cutting her food but her (B) UE fine motor control is fair-poor at this time. Equipment owned/DME: Wheelchair, Shower bench, grab bars SUBJECTIVE:??Pt states that she is doing okay. She is discouraged with her fall and notes that her wheelchair doesn't lock well. OT and pt discuss that this could be fixed. She reports that she has had it looked at before but this did not seem to help. OBJECTIVE:? General Observation: Pleasant, IV in UE Mental Status: A&Ox3 Pain: c/o pain in (B) LE and (L) UE ROM: RUE AROM WFL L UE AROM WFL STRENGTH: RUE 3/5 throughout LUE 2+/5 throughout FUNCTIONAL MOBILITY/ADLS:? Self Care Training: OT and pt went over DME needs and assessment of her functional limitations at this time. She denies the sock aid and states that she does need increased (A) with her ADL/IADL routines. Pt states that the biggest limiting factor is her transfers to and from the wheelchair. OT and pt discuss her current care plan and (A) and further DME needs at this time. BALANCE: Static sitting Good Dynamic Sitting Good SPECIAL TESTS:? Daily Activity Limitations Standardized Measure [facility] ? AM -PAC ? ?6 clicks? Daily Activity Inpatient Short Form: Raw score: 19 ? Standardized score: 40.22? CMS score: 42.80%? INFORMED CONSENT/EDUCATION: Pt instructed in purpose of OT Consult and plan of care. ASSESSMENT:?? Patient is a 67-year-old female referred to occupational therapy services with diagnosis of HTN, GERD, Myasthenia Gravis, neuropathic pain of (B) LE weakness, frequent falls, constipation, neurogenic bladder, closed fx of distal femur, pt has transitioned to [facility] level of care at this time. Patient presents with clinical signs and symptoms consistent with dx, as demonstrated by the following impairment level findings/ functional limitations: Impairments ADL/IADL and leisure impairments, pain in (L) arm and (B) LE, numbness in (B) LE and decreased functional activity tolerance, impairments in functional mobility required for ADL performance. AMPA score 19 Patient is assessed as a Moderate 79819 complexity based on the following: History: see above Examination: see functional limitations as noted above Presentation: evolving Decision Making: moderate complexity GOALS Goals x1 week 1. Oral Hygiene pt will be (I) sitting in bed with ideal technique 2.? Dressing sitting on side of the bed (I) 3.? Bathing in shower (I) seated 4.? Toileting on commode (I) PLAN OF CARE/TREATMENT PLAN: 1x/day, 5 days/ week x 1week Initiate Occupational Therapy Services for bathing, dressing, grooming, toileting, eating, transfer training. DISCHARGE RECOMMENDATIONS Due to pts decreased functional activity tolerance/ fx in her femur OT recommends that pt go SNF [place]. Home with continued HH services when medically cleared per MD. TREATMENT TIME/MINUTES/CODES 52615,25 minutes Daya Cali OTR/[facility]
[2022-10-04] MEDS: Cyclobenzaprine 10 MG TAB 20 MG PO (21:09)
[2022-10-04] MEDS: Zolpidem 5 MG TAB PO (21:09)
[2022-10-04] MEDS: Lidocaine 5% Patch 1 PATCH TP (21:09)
[2022-10-04 23:05] VITALS: BP 140/58; PULSE 83; RESP 16; TEMP 36.7; O2SAT 94
[2022-10-05 06:54] LABS: Platelet Count 345 10^3/uL (130-400)
[2022-10-05] MEDS: Polyethylene Glycol 3350 17 GM PACKET PO (07:41)
[2022-10-05] MEDS: Enoxaparin 40 MG/0.4 ML SYR SC (07:41)
[2022-10-05] MEDS: Acetylcysteine 600 MG CAP 1200 MG PO ×2 (07:41→21:46)
[2022-10-05] MEDS: Acetaminophen 325 MG TAB 650 MG PO ×4 (07:42→21:46)
[2022-10-05] MEDS: Gabapentin 300 MG CAP PO ×2 (07:42→21:45)
[2022-10-05] MEDS: Docusate Sodium 100 MG CAP PO (07:42)
[2022-10-05] MEDS: Senna TAB 1 TAB PO (07:42)
[2022-10-05] MEDS: Metoprolol 12.5 MG TAB PO ×2 (07:42→21:46)
[2022-10-05] MEDS: amLODIPine 2.5 MG TAB PO (07:42)
[2022-10-05] MEDS: Pantoprazole 40 MG TABCR PO (07:42)
[2022-10-05] MEDS: Folic Acid 1 MG TAB PO (07:42)
[2022-10-05] MEDS: Lisinopril 10 MG TAB PO (07:42)
[2022-10-05] MEDS: Methocarbamol 500 MG TAB 1000 MG PO ×4 (07:43→21:46)
[2022-10-05] MEDS: Lidocaine Patch Removal 1 EACH TP (10:22)
[2022-10-05] MEDS: HYDROmorphone 2 MG/ML VIAL IVP ×2 (11:58→21:47)
[2022-10-05] MEDS: Normal Saline Flush 10 ML SYR IVP ×2 (11:59→21:47)
--- NOTE | 2022-10-05 14:10 | PT.INTREAT ---
Date of service: 10/07/22 Time of Service: 11:33 PT Notes Visit Reasons: Femur FX SWING BED LEVEL 1 Inpatient Physical Therapy Treatment Note [facility] Date: 10/07/2022 PRECAUTIONS: Activity as tolerated, paraparesis, NWB L SUBJECTIVE: Missy is pleasant and agreeable to participating in PT, although reporting significant pain in L LE with even the slightest movements. OBJECTIVE: PAIN: Patient c/o L LE pain with all movement, she also reports L UE pain with ther ex BED MOBILITY/TRANSFERS: Not assessed today THEREX: Patient was instructed in a global strengthening and stabilization program, completed in a supine position, to include: Ankle pumps x10 Quad (R only) and glute sets x10 Heel slides (R only) x10 with moderate assist Hip abduction (R only) x10 with minimal assist SLR (R only) x10 with moderate assist Bicep curls with 1# x30 Shoulder punch ups with 1# x10 Shoulder flexion with 1# x15 Rows with yellow Tband x15 Tricep kickbacks with yellow Tband x10 Modified sit up with 1# 10 x 3 seconds Modified diagonal crunch with 1# x10 each L/R ASSESSMENT: Patient demonstrates global weakness, which limits her ability to complete transfers and bed mobility without assist x3 people. She also reports significant L LE pain with all movement, which is very limiting. PLAN: Continue with global strengthening, bed mobility and transfer training for improved ability to perform daily functional tasks. TREATMENT CODE/TIME: 16 minutes; 10612 (11:33)
--- NOTE | 2022-10-05 17:19 | CHAPLAIN ---
Missy switched rooms and said she is in a quieter room now, farther from the nurses' station. Her friend who usually visits hasn't been able to, but Missy thought another one might be in to see. She said she's been going to be early because she doesn't have much to do here. I will continue to visit.
[2022-10-05] MEDS: Lidocaine 5% Patch 1 PATCH TP (21:44)
[2022-10-05] MEDS: Cyclobenzaprine 10 MG TAB 20 MG PO (21:45)
[2022-10-05] MEDS: Zolpidem 5 MG TAB PO (21:47)
[2022-10-06 07:37] VITALS: BP 137/83; PULSE 108; RESP 16; TEMP 36.1; O2SAT 95
[2022-10-06] MEDS: Normal Saline Flush 10 ML SYR IVP ×2 (07:56→12:05)
[2022-10-06] MEDS: HYDROmorphone 2 MG/ML VIAL IVP ×3 (07:56→21:39)
[2022-10-06] MEDS: Folic Acid 1 MG TAB PO (08:00)
[2022-10-06] MEDS: Enoxaparin 40 MG/0.4 ML SYR SC (08:00)
[2022-10-06] MEDS: amLODIPine 2.5 MG TAB PO (08:00)
[2022-10-06] MEDS: Acetaminophen 325 MG TAB 650 MG PO ×4 (08:01→19:59)
[2022-10-06] MEDS: Lisinopril 10 MG TAB PO (08:01)
[2022-10-06] MEDS: Acetylcysteine 600 MG CAP 1200 MG PO ×2 (08:01→19:58)
[2022-10-06] MEDS: Gabapentin 300 MG CAP PO ×2 (08:01→19:57)
[2022-10-06] MEDS: Metoprolol 12.5 MG TAB PO ×2 (08:01→19:59)
[2022-10-06] MEDS: Methocarbamol 500 MG TAB 1000 MG PO ×4 (08:02→19:57)
[2022-10-06] MEDS: Pantoprazole 40 MG TABCR PO (08:02)
--- NOTE | 2022-10-06 09:00 | DI.RAD_ITS ---
Exam(s) XR KNEE LT 2V AP,LAT EXAM: XR KNEE LT 2V AP,LAT CLINICAL HISTORY: f/u Distal femur fracture. TECHNIQUE: 2D digital imaging was performed of the left knee. Three images were obtained. AP and l ateral views were obtained. COMPARISON: CR XR KNEE LT 2V AP,LAT from 09/30/2022 FINDINGS: BONES: Given the slight changes in obliquity there does not appear to be any significant change in a lignment of the distal left femoral fracture. No bony destructive lesion is seen. The bones appear o steopenic. JOINTS: The knee is normally aligned. There is a hemarthrosis present. SOFT TISSUE: Normal. IMPRESSION: Stable distal femoral fracture. DATA REPOSITORY: RADIATION DOSE DELIVERED:
[2022-10-06] MEDS: oxyCODONE 5 MG TAB PO (10:05)
[2022-10-06] MEDS: Lidocaine Patch Removal 1 EACH TP (10:06)
--- NOTE | 2022-10-06 12:03 | PT.INTREAT ---
PT Notes Visit Reasons: Femur FX SWING BED LEVEL 1 PRECAUTIONS: Activity as tolerated, paraparesis, NWB L SUBJECTIVE: Pt in bed when approached for therapy this morning, pt agreed to participating with therapy OBJECTIVE: ? PAIN: Patient c/o L LE pain 03/24 ? BED MOBILITY/TRANSFERS: max A +1 going from supine to EOB, EOB to WC, WC to EOB, EOB to half sitting, half sitting to supine ? Transfer Training: front and back transfer going from Supine to EOB, EOB to WC, WC to half sitting, half sitting to supine with pt doing bilateral triceps push ups to assist with transfers. Assessment: Pt reports that the transfer was exhausting but is feels really good being able to change position from supine to sitting up and be able to go back in bed after being on the WC for an hour. PLAN: Continue with global strengthening, bed mobility and transfer training for improved ability to perform daily functional tasks. TREATMENT CODE/TIME: Session 1: 30mins [id number]
[2022-10-06] MEDS: fentaNYL 100 MCG PATCH TD (12:05)
--- NOTE | 2022-10-06 14:59 | W.PM.PROGNOT ---
Date of Service Date of service: 10/06/22 Time of Service: 15:04 Assessment and Plan Assessment and plan (1) Closed fracture of left distal femur: Status: Acute Assessment and plan: 67 year old female almost 2 weeks status post Left intra-articular minimally displaced distal femur fx 09/25/22 Repeat left knee x-rays show largely maintained alignment of fracture. Continue nonoperative management as described previously. Next x-rays 10/18/22. May start knee range of motion after 10/23/2022 and weightbearing around 11/06/22-11/20/22. Call if any issues or concerns. I will follow along. Objective Last Vital Signs Temp 97.0 F L 10/06/22 07:37 Pulse 108 H 10/06/22 07:37 Resp 16 10/06/22 07:37 BP 137/83 10/06/22 07:37 Pulse Ox 95 10/06/22 07:37 Time Spent with Patient Time Spent with Patient: <25 minutes (none) Time was spent: ordering medications,tests, procedures
--- NOTE | 2022-10-06 16:41 | PT.INTREAT ---
Date of service: 10/06/22 Time of Service: 14:25 PT Notes Visit Reasons: Femur FX SWING BED LEVEL 1 Inpatient Physical Therapy Treatment Note [facility] Date: 10/06/2022 PRECAUTIONS: Closed Left Distal Femur Fracture, NWB on left, standard precautions, fall SUBJECTIVE: Stated she is tired from getting up to w/c earlier today. Willing to do her bed exercises. OBJECTIVE: PAIN: No complaints of pain offered. THEREX: Performed supine bed exercises with HOB up to 40 degrees. This included ankle pumps, quad sets, glut sets, right LE hip flexion, right hip IR/ER (rolling in and out), trapeze pull ups, AROM of arms over head no resistance, active UE push outs no resistance and 2# resisted bicep curls for 10 reps each. ASSESSMENT: Tolerated bed exercises fair. Indicated she has been trying to do this independently but has a difficult time. Unable to reach trapeze to get it down and not sure if she is doing them appropriately. PLAN: Continue with current plan of care, as able to tolerate. Focus on improved functional mobility. TREATMENT CODE/TIME: [id number], 2:25 to 2:40 pm (15')
[2022-10-06 18:30] VITALS: BP 131/84; PULSE 94; O2SAT 94
[2022-10-06] MEDS: Docusate Sodium 100 MG CAP PO (19:59)
[2022-10-06] MEDS: Lidocaine 5% Patch 1 PATCH TP (21:38)
[2022-10-06] MEDS: Cyclobenzaprine 10 MG TAB 20 MG PO (21:38)
[2022-10-06] MEDS: Zolpidem 5 MG TAB PO (23:09)
[2022-10-07] MEDS: Methocarbamol 500 MG TAB 1000 MG PO ×4 (08:16→20:29)
[2022-10-07] MEDS: Folic Acid 1 MG TAB PO (08:16)
[2022-10-07] MEDS: Gabapentin 300 MG CAP PO ×2 (08:16→20:29)
[2022-10-07] MEDS: Lisinopril 10 MG TAB PO (08:16)
[2022-10-07] MEDS: amLODIPine 2.5 MG TAB PO (08:16)
[2022-10-07] MEDS: Docusate Sodium 100 MG CAP PO ×2 (08:16→20:29)
[2022-10-07] MEDS: Metoprolol 12.5 MG TAB PO ×2 (08:16→20:30)
[2022-10-07] MEDS: Acetaminophen 325 MG TAB 650 MG PO ×4 (08:16→20:29)
[2022-10-07] MEDS: Acetylcysteine 600 MG CAP 1200 MG PO ×2 (08:16→20:28)
[2022-10-07] MEDS: Pantoprazole 40 MG TABCR PO (08:17)
[2022-10-07] MEDS: Enoxaparin 40 MG/0.4 ML SYR SC (08:17)
--- NOTE | 2022-10-07 08:37 | CMACTNOTE_ITS ---
- If Service Date Differs Date of service: 10/07/22 Time of Service: 08:37 Care Management Activity Note S/O:Missy has enjoyed visiting with staff and friends from the community. She would enjoy music therapy and pet therapy if they become available. Missy also enjoys watching television and doing word search puzzles. She gets out of bed every day for a time but cannot ambulate. A: Missy is a 67 year old woman admitted on 09/25/22 with a fractured femur. She was transitioned to Swingbed-1 on 10/03/22. P: Missy will remain in SWB1 to continue to work with PT/OT while she is non weight bearing. She will progress toward indpendence with mobility/transfers o nce she is able to bear weight.
[2022-10-07 09:01] VITALS: BP 134/82; PULSE 102; RESP 16; TEMP 36.4; O2SAT 96
[2022-10-07] MEDS: oxyCODONE 5 MG TAB PO ×2 (10:57→17:54)
[2022-10-07] MEDS: Lidocaine Patch Removal 1 EACH TP (10:58)
--- NOTE | 2022-10-07 13:42 | W.PALLCONSUL ---
Date of service: 10/07/22 Time of Service: 13:30 History of Present Illness Narrative: Missy was seen for palliative f/u. She feels like things are going well overall. She feels PT is going well. It is scary for her to get up to the chair. It is anxiety provoking, she is afraid of the pain. She feels her pain is fairly well controlled. She gets muscle spasms- Robaxin helps. She is eating and drinking well, she likes the food. She has had some difficulty getting medications at night. She knows the plan is for her to stay here at [facility] to recover. Her insurance will not cover rehab. She plans to return home when she is able. Assessment and Plan Assessment and plan (1) Syrinx of spinal cord: (2) Spinal stenosis: (3) History of lacunar cerebrovascular accident: (4) Generalized weakness: (5) DNR (do not resuscitate): (6) DNI (do not intubate): (7) Ambulatory dysfunction: Status: Acute (8) Closed fracture of left distal femur: Status: Acute (9) Frequent falls: Status: Chronic (10) Pain: Status: Acute (11) Constipation, chronic: Status: Chronic (12) Neurogenic bladder: Status: Chronic (13) Myasthenia gravis: Status: Chronic (14) Palliative care patient: Assessment and plan: Missy is a very pleasant 67 year old female with a past medical Hx significant for Myesthenia Gravis, syrinx of the spinal cord, who is wheelchair bound at baseline and has had several falls at home. Unfortunately, she had a fall while transferring at home and sustained a left distal femur fracture. She is currently hospitalized at [facility]. She was seen at [facility] for Palliative continuation of care. She reports that her pain is fairly well controlled this morning. She is being treated nonoperatively and will need to keep her LLE extended for 4 weeks. She will remain at [facility] for rehab, her insurance does not cover SNF for rehab. Her plan is to return home when able. She lives at [facility] in an apartment. Palliative will follow as needed and after discharge. Review of Systems All systems reviewed & are unremarkable except as noted in HPI and below PFSH All Active Problems Ambulatory dysfunction (Acute) Hypertension (Chronic) GERD (gastroesophageal reflux disease) (Chronic) Myasthenia gravis (Chronic) Neuropathic pain of both legs (Chronic) Weakness (Acute) Pain (Acute) Frequent falls (Chronic) Constipation, chronic (Chronic) Neurogenic bladder (Chronic) Closed fracture of left distal femur (Acute 09/25/22) Medical History Acute hypokalemia Acute hyponatremia Alcohol abuse history of Anxiety Arachnoid cyst Asymptomatic microscopic hematuria Ataxia Atelectasis Bunion of unspecified foot Bursitis of left shoulder Carpal tunnel syndrome of left wrist Chronic pain Chronic renal insufficiency COPD (chronic obstructive pulmonary disease) Dental caries Depression DNI (do not intubate) DNR (do not resuscitate) Elevated troponin External bleeding hemorrhoids Fluid collection at surgical site Fluid collection at surgical site Former smoker Gastric ulcer Generalized weakness History of gluten intolerance History of lacunar cerebrovascular accident Hyperlipidemia Hypokalemia Hypomagnesemia Hypoxia Insomnia previous misuse of Ambien Intracranial arachnoid cyst Left arm weakness Left hand weakness Left shoulder pain Migraine headache without aura Neurogenic bowel Oropharyngeal dysphagia Palliative care patient Palliative care patient Peripheral neuropathy POLST (Physician Orders for Life-Sustaining Treatment) COLST completed 10/30/2020 with Jennifer Lugo, OCCUPATIONAL THERAPIST'S ASSISTANT, DNR/DNI Prediabetes Prerenal azotemia Protein malnutrition Rupture of left proximal biceps tendon Spasticity Spinal stenosis Syrinx of spinal cord Starting at C3 and extending to T11 Tachycardia Ulnar neuropathy of left upper extremity Urinary frequency Urinary retention Urine abnormality UTI (urinary tract infection) Surgical History H/O craniotomy ; L cerebellar arachnoid cyst drain with shunt placement H/O esophagogastroduodenoscopy (~07/2021) 09/2021 H/O thymectomy S/P appendectomy S/P cystourethroscopy with dilation of urethral stricture S/P tonsillectomy Family History Mother , 90 Diabetes Hypertension Stroke Father , 73 Neuropathy Back problem Depression Heart disease Stroke Brother Myasthenia gravis Depression Maternal Grandfather , 80's Diabetes Paternal Grandfather , 50 Heart disease Maternal Grandmother , 80 No problems noted. Paternal Grandmother , 70 No problems noted. Social History Smoking/Tobacco Use Status: Former Tobacco Use tobacco type: cigarettes Quit Date: 08/15/16 Tobacco: How many years used: 35 Smoking risk assessment performed?: Yes Alcohol Intake: former Drug use: Never Substance use type: does not use Household members: other Housing: detention Number of Children: 0 Pets and animals: No Current gender identity: female What type of physical activity do you participate in: none Seatbelt use: always Do you feel safe at home: Yes (Pt lives alone) Do you feel safe in your relationship?: Yes Exam Narrative Exam Narrative: General: very pleasant, middle aged female, laying in bed in her hospital room. She is awake, alert and oriented, talkative. HEENT: normocephalic, atraumatic, EOMI, mmm, poor dentition. Neck: supple. Respiratory: respirations appear even and unlabored. Extremities: no lower extremity edema, discomfort to RLE on palpation. Contracture to hands. Results Last Vital Signs Temp 36.4 C L 10/07/22 09:01 Pulse 102 H 10/07/22 09:01 Resp 16 10/07/22 09:01 BP 134/82 10/07/22 09:01 Pulse Ox 96 10/07/22 09:01 Labs 10/05/22 06:25
[2022-10-07] MEDS: Cyclobenzaprine 10 MG TAB 20 MG PO (21:10)
[2022-10-07] MEDS: Lidocaine 5% Patch 1 PATCH TP (21:11)
[2022-10-07] MEDS: Zolpidem 5 MG TAB PO (21:15)
[2022-10-07] MEDS: HYDROmorphone 2 MG/ML VIAL IVP (23:23)
[2022-10-08 07:01] LABS: Platelet Count 392 10^3/uL (130-400)
[2022-10-08 07:46] VITALS: BP 115/78; PULSE 101; RESP 17; TEMP 36.4; O2SAT 96
[2022-10-08] MEDS: oxyCODONE 5 MG TAB PO ×2 (08:42→18:14)
[2022-10-08] MEDS: Enoxaparin 40 MG/0.4 ML SYR SC (08:42)
[2022-10-08] MEDS: Normal Saline Flush 10 ML SYR IVP ×3 (08:42→22:09)
[2022-10-08] MEDS: Pantoprazole 40 MG TABCR PO (08:43)
[2022-10-08] MEDS: Acetaminophen 325 MG TAB 650 MG PO ×4 (08:43→19:17)
[2022-10-08] MEDS: Acetylcysteine 600 MG CAP 1200 MG PO ×2 (08:43→19:18)
[2022-10-08] MEDS: Lisinopril 10 MG TAB PO (08:43)
[2022-10-08] MEDS: Folic Acid 1 MG TAB PO (08:43)
[2022-10-08] MEDS: Methocarbamol 500 MG TAB 1000 MG PO ×4 (08:43→19:15)
[2022-10-08] MEDS: Metoprolol 12.5 MG TAB PO ×2 (08:43→19:17)
[2022-10-08] MEDS: Docusate Sodium 100 MG CAP PO (08:43)
[2022-10-08] MEDS: amLODIPine 2.5 MG TAB PO (08:43)
[2022-10-08] MEDS: Gabapentin 300 MG CAP PO ×2 (08:43→19:16)
[2022-10-08] MEDS: Lidocaine Patch Removal 1 EACH TP (09:57)
[2022-10-08] MEDS: HYDROmorphone 2 MG/ML VIAL IVP ×2 (10:49→22:10)
[2022-10-08] MEDS: Ondansetron O.D.T. 4 MG TABEF PO (12:17)
--- NOTE | 2022-10-08 15:17 | PTTR_ITS ---
PT Notes Visit Reasons: Femur FX SWING BED LEVEL 1 Inpatient Physical Therapy Treatment Note [facility] Date: 10/07/2022 PRECAUTIONS: Activity as tolerated, paraparesis, NWB L SUBJECTIVE: Missy is pleasant and agreeable to participating in PT, although r eporting significant pain in L LE with even the slightest movements. OBJECTIVE: PAIN: Patient c/o L LE pain with all movement, she also reports L UE pain with ther ex BED MOBILITY/TRANSFERS: Patient was instructed in a scoot from bed<>commode utilizing B UE with moderate assist x3 (including assist with L LE at all times). THEREX: Patient was instructed in a global strengthening and stabilization program, completed in a supine position, to include: Ankle pumps x10 Quad (R only) and glute sets 10x3 sec Heel slides (R only) x10 Hip abduction (R only) x10 with minimal assist SLR (R only) x10 with moderate assist Bicep curls with 1# x30 Shoulder punch ups with 1# x15 Shoulder flexion with 1# x15 Rows with yellow Tband x10 Tricep kickbacks with yellow Tband x5 Modified sit up with 1# x10 Modified diagonal crunch with 1# x10 each L/R ASSESSMENT: Patient demonstrates global weakness, which limits her ability to complete transfers and bed mobility without assist x3 people. She also reports significant L LE pain with all movement, which is very limiting. PLAN: Continue with global strengthening, bed mobility and transfer training for improved ability to perform daily functional tasks. TREATMENT CODE/TIME: 16 minutes; 32944 (11:33)
[2022-10-08] MEDS: Zolpidem 5 MG TAB PO (22:07)
[2022-10-08] MEDS: Cyclobenzaprine 10 MG TAB 20 MG PO (22:08)
[2022-10-08] MEDS: Lidocaine 5% Patch 1 PATCH TP (22:09)
[2022-10-09 07:34] VITALS: BP 121/78; PULSE 99; RESP 16; TEMP 36.3; O2SAT 94
[2022-10-09] MEDS: Gabapentin 300 MG CAP PO ×2 (09:43→19:15)
[2022-10-09] MEDS: oxyCODONE 5 MG TAB PO (09:43)
[2022-10-09] MEDS: Acetaminophen 325 MG TAB 650 MG PO ×4 (09:43→19:15)
[2022-10-09] MEDS: Methocarbamol 500 MG TAB 1000 MG PO ×4 (09:43→19:14)
[2022-10-09] MEDS: Pantoprazole 40 MG TABCR PO (09:44)
[2022-10-09] MEDS: amLODIPine 2.5 MG TAB PO (09:44)
[2022-10-09] MEDS: Folic Acid 1 MG TAB PO (09:44)
[2022-10-09] MEDS: Metoprolol 12.5 MG TAB PO ×2 (09:44→19:15)
[2022-10-09] MEDS: Senna TAB 1 TAB PO (09:44)
[2022-10-09] MEDS: Docusate Sodium 100 MG CAP PO ×3 (09:44→19:15)
[2022-10-09] MEDS: Acetylcysteine 600 MG CAP 1200 MG PO ×2 (09:44→19:15)
[2022-10-09] MEDS: Enoxaparin 40 MG/0.4 ML SYR SC (09:45)
[2022-10-09] MEDS: Normal Saline Flush 10 ML SYR IVP ×2 (09:45→13:52)
[2022-10-09] MEDS: Lisinopril 10 MG TAB PO (09:45)
[2022-10-09] MEDS: Lidocaine Patch Removal 1 EACH TP (09:49)
[2022-10-09] MEDS: fentaNYL 100 MCG PATCH TD (12:05)
[2022-10-09] MEDS: HYDROmorphone 2 MG/ML VIAL IVP ×2 (13:52→20:33)
[2022-10-09 19:15] VITALS: BP 115/70; PULSE 94; RESP 16; TEMP 36.9; O2SAT 96
[2022-10-09] MEDS: Cyclobenzaprine 10 MG TAB 20 MG PO (21:53)
[2022-10-09] MEDS: Zolpidem 5 MG TAB PO (21:53)
[2022-10-09] MEDS: Lidocaine 5% Patch 1 PATCH TP (21:54)
[2022-10-10] MEDS: oxyCODONE 5 MG TAB PO ×2 (00:01→18:40)
[2022-10-10 06:58] LABS: Abs Immature Grans 0.04 10^3/uL (0.0-0.06); Absolute Basophil Count 0.04 10^3/uL (0.0-0.2); Absolute Eosinophil Count 0.12 10^3/uL (0.0-0.7); Absolute Lymphocyte Count 1.14 10^3/uL (1.2-3.4); Absolute Monocyte Count 0.63 10^3/uL (0.1-0.8); Absolute Neutrophil Count 4.38 10^3/uL (1.2-6.7); Basophils % 0.6; Eosinophils % 1.9; HCT 34.5 % (36.0-46.0); HGB 10.8 g/dL (11.2-15.7); Immature Grans % 0.6; MCH 28.8 pg (27.0-33.0); MCHC 31.3 % (32.0-36.0); MCV 92 fL (80-95); MPV 8.9 fL (8.0-11.0); Monocytes % 9.9; Platelet Count 417 10^3/uL (130-400); RBC 3.75 10^6/uL (3.93-5.22); RDW 14.8 % (11.7-14.6); RDW-SD 50.4 fL; WBC 6.35 10^3/uL (4.4-10.8)
[2022-10-10 07:14] VITALS: BP 97/62; PULSE 86; RESP 20; TEMP 36.1; O2SAT 96
[2022-10-10 07:14] LABS: Anion Gap 7.5 mmol/L (3-11); BUN 25 mg/dL (7-18); CO2 23.5 mmol/L (21.0-32.0); CREATININE 0.9 mg/dL (0.55-1.02); Calcium 9.2 mg/dL (8.5-10.1); Chloride 107 mmol/L (98-107); Estimated GFR 70.07 (mL/min/1.73m2); Glucose 95 mg/dL (74-106); Potassium 4.7 mmol/L (3.5-5.1); Sodium 138 mmol/L (136-145)
[2022-10-10] MEDS: amLODIPine 2.5 MG TAB PO (07:52)
[2022-10-10] MEDS: Folic Acid 1 MG TAB PO (07:52)
[2022-10-10] MEDS: Methocarbamol 500 MG TAB 1000 MG PO ×3 (07:52→19:59)
[2022-10-10] MEDS: Acetylcysteine 600 MG CAP 1200 MG PO ×2 (07:53→20:00)
[2022-10-10] MEDS: Gabapentin 300 MG CAP PO ×2 (07:53→19:59)
[2022-10-10] MEDS: Acetaminophen 325 MG TAB 650 MG PO ×3 (07:53→19:59)
[2022-10-10] MEDS: Pantoprazole 40 MG TABCR PO (07:53)
[2022-10-10] MEDS: Normal Saline Flush 10 ML SYR IVP (07:54)
[2022-10-10] MEDS: Metoprolol 12.5 MG TAB PO ×2 (07:54→19:59)
[2022-10-10] MEDS: Lisinopril 10 MG TAB PO (07:54)
[2022-10-10] MEDS: Enoxaparin 40 MG/0.4 ML SYR SC (07:54)
[2022-10-10] MEDS: Lidocaine Patch Removal 1 EACH TP (07:56)
--- NOTE | 2022-10-10 19:00 | PGE_ITS ---
Date of Service Date of service: 10/10/22 Time of Service: 19:01 Assessment and Plan Assessment and plan (1) Closed fracture of left distal femur: Status: Acute Assessment and plan: 67 year old female with Left intra-articular minimally displaced distal femur fx after a fall at assisted living facility where she lives Nonoperative management. Maintain Left knee immobilizer: While patient is resting in bed and not repositioning or moving, knee immobilizer should be opened up or at least loosened to reduce pressure on skin and chance of skin breakdown. Knee immobilizer should be relatively snug during repositioning and while out of bed. Maintain knee straight in full extension for 4 weeks. Non-weight bearing left lower extremity about 6-8 weeks. Replace soft roll padding and/or Elvis bandage as needed to protect skin from knee immobilizer. Follow-up with trauma engineering specialist technician Dr. Alok Byrd at [facility] (2) Hypertension: Status: Chronic Assessment and plan: blood pressures improved with medication reductions continue to monitor blood pressure and adjust meds as needed. (3) Myasthenia gravis: Status: Chronic Assessment and plan: Stable and at baseline Continue outpatient medical therapy (4) Spinal stenosis: Assessment and plan: With chronic pain - Physical therapy (5) GERD (gastroesophageal reflux disease): Status: Chronic Assessment and plan: Continue PPI. (6) Neurogenic bladder: Status: Chronic Assessment and plan: With history of frequent UTIs, urinalysis done - negative (7) Pain: Status: Acute Assessment and plan: Continue Fentanyl patch 100 mcg change every 72 Dilaudid oral PRN apap scheduled Spasm - methocarbamol prn (8) Constipation, chronic: Status: Chronic Assessment and plan: continue bowel regimen and prn relistor as needed (9) DVT prophylaxis: Status: Deleted Assessment and plan: Enoxaparin 40 mg sc (10) Discharge planning issues: Status: Deleted Assessment and plan: plan for rehab is 6-8 weeks with no surgical intervention, this is HD 15 (admitted 09/26/2022) Case management is following for discharge planning Discussed with Dr Moran Subjective Subjective Patient reports: no new complaints, pain is less, tolerating a regular diet, bowel movement and afebrile; denies diarrhea, blood in stool, nausea, vomiting or shortness of breath Interval history since last seen: Awake, alert, semi-fowlers in bed, pleasant, conversant. Despite being here for so long and knowing she still has a long way to go she has a very positive attitude. Exam Const General: cooperative and no acute distress Orientation: alert, awake and oriented x3 HENMT Head: normal to inspection Face and sinus: normal facial exam Eyes General: appearance normal, both eyes and all related structures Pupils: PERRL EOM: EOM intact bilaterally Neck Neck: normal visual inspection and No submandibular swelling Lymphatic: no lymphadenopathy noted Chest Chest: normal inspection of the chest and no tenderness Resp Effort & Inspection: normal respiratory effort and able to speak in complete sentences Auscultation: clear to auscultation bilaterally Cardio Rate: regular rate Rhythm: regular rhythm GI Inspection: normal to inspection Palpation: soft, not firm, not rigid and nontender Auscultation: normal bowel sounds Back/Spine/Pelvis Thoracic/Lumbar Spine: thoracic and lumbar spine normal to inspection Pelvis: no pain with anterior-posterior compression Skin General skin exam: no rashes or lesions noted Neuro General: patient alert, patient awake and patient oriented x3 Cognition: normal cognition Speech: speech normal Motor: muscle tone normal throughout Sensory Exam: no sensory deficits noted Extrem General: capillary refill normal Right upper extremity: normal to inspection Left upper extremity: normal to inspection Right lower extremity: normal to inspection Left lower extremity: normal to inspection (knee immobilizer in place) and normal capillary refill Psych Appearance: grossly normal Mental Status: mental status grossly normal Speech and Movement: speech and movement normal Affect: normal affect Objective Last Vital Signs Temp 36.1 C L 10/10/22 07:14 Pulse 86 10/10/22 07:14 Resp 20 10/10/22 07:14 BP 97/62 L 10/10/22 07:14 Pulse Ox 96 10/10/22 07:14 Laboratory Results - last 24 hr 10/10/22 10/10/22 06:45 06:45 WBC 6.35 RBC 3.75 L Hgb 10.8 L Hct 34.5 L MCV 92 MCH 28.8 MCHC 31.3 L RDW 14.8 H Plt Count 417 H MPV 8.9 Immature Gran % 0.6 Neutrophils % 69.0 Lymphocytes % 18.0 Monocytes % 9.9 Eosinophils % 1.9 Basophils % 0.6 Nucleated RBC % 0.0 Absolute Neutrophils 4.38 Absolute Lymphocytes 1.14 L Absolute Monocytes 0.63 Absolute Eosinophils 0.12 Absolute Basophils 0.04 Sodium 138 Potassium 4.7 Chloride 107 Carbon Dioxide 23.5 Anion Gap 7.5 BUN 25 H Creatinine 0.9 Est GFR (CKD-EPI 2020) 70.07 Glucose 95 Calcium 9.2 Magnesium 2.0 Time Spent with Patient Time Spent with Patient: 35-49 minutes Time was spent: preparing to see the patient(eg.review tests), obtaining and/or reviewing separately otained hiistory, ordering medications,tests, procedures, referring, communicating with other health assurance services manager health care, indepentently interpreting results, counseling the patient and care coordination
[2022-10-10] MEDS: Zolpidem 5 MG TAB PO (19:59)
[2022-10-10] MEDS: Lidocaine 5% Patch 1 PATCH TP (19:59)
[2022-10-10 20:00] VITALS: BP 109/69; PULSE 90
[2022-10-10] MEDS: Cyclobenzaprine 10 MG TAB 20 MG PO (20:07)
[2022-10-11] MEDS: Gabapentin 300 MG CAP PO ×2 (07:21→20:02)
[2022-10-11] MEDS: Acetylcysteine 600 MG CAP 1200 MG PO ×2 (07:21→20:02)
[2022-10-11] MEDS: Acetaminophen 325 MG TAB 650 MG PO ×4 (07:21→20:02)
[2022-10-11] MEDS: Polyethylene Glycol 3350 17 GM PACKET PO (07:21)
[2022-10-11] MEDS: Enoxaparin 40 MG/0.4 ML SYR SC (07:21)
[2022-10-11] MEDS: Metoprolol 12.5 MG TAB PO ×2 (07:21→20:01)
[2022-10-11] MEDS: amLODIPine 2.5 MG TAB PO (07:22)
[2022-10-11] MEDS: Pantoprazole 40 MG TABCR PO (07:22)
[2022-10-11] MEDS: Folic Acid 1 MG TAB PO (07:22)
[2022-10-11] MEDS: Docusate Sodium 100 MG CAP PO ×3 (07:22→20:02)
[2022-10-11] MEDS: Lisinopril 10 MG TAB PO (07:22)
[2022-10-11] MEDS: Methocarbamol 500 MG TAB 1000 MG PO ×3 (07:22→15:47)
[2022-10-11] MEDS: Senna TAB 1 TAB PO ×2 (07:22→20:01)
[2022-10-11 07:27] VITALS: BP 118/75; PULSE 105; RESP 16; TEMP 36.7; O2SAT 92
[2022-10-11] MEDS: Lidocaine Patch Removal 1 EACH TP (09:26)
[2022-10-11] MEDS: HYDROmorphone 2 MG TAB PO ×2 (12:49→21:21)
--- NOTE | 2022-10-11 14:00 | INPN_ITS ---
Date of service: 10/11/22 Time of Service: 14:30 PT Notes Visit Reasons: Femur FX SWING BED LEVEL 1 Reporting period: 10/03/2022-10/11/22 Referring Doctor:? [Pavithra Bliss] Precautions: standard?Per orthopod order:? Keep L knee in extension using knee immobilizer when OOB.? NWB on the L LE with AD.? Paraparetic,? wheelchair-bound.? Stand-squat transfers only after set up of wheelchair,? does better leading with R LE. Subjective:? Missy reports 7/10 pain in L femur. During mobility of treatment, she states pain did not increase as it once did in the past. She has not been attempting to get out of bed, feels she is unable. Was independent with WC mobility efforts and transfers prior to admission and femur fracture. She is unclear why she is parapalegic. Pain: 7/10 in L LE, B chronic foot parasthesias Objective: General inspection:? Supine in bed.? Brar catheter in place.? ? 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 KI in L LE Mental Status: Alert and oriented x 4 ROM: Right Upper Extremity: ? Shoulder Flexion WFL. Shoulder abduction WFL. Elbow flexion WFL. Wrist flexion WFL. Functional opening and closing of hand limited Left Upper Extremity:? Shoulder Flexion WFL. Shoulder abduction WFL. Elbow flexion WFL. Wrist flexion WFL. Awkard opening and closing of hand WFL. Right Lower Extremity: Hip flexion allows up to 60 degrees. Hip abduction 25 degrees. Knee flexion up to 90 degrees passively. Ankle dorsiflexion 25 degrees. Ankle plantarflexion 25 degrees. Left Lower Extremity: Passive ankle DF 10, passive hip flexion in immobilizer 25 deg Strength: Right Upper Extremity: Shoulder flexors 4/5. Shoulder abductors 4/5. Elbow flexors 4-/5. Elbow extensors 4/5. Access Database Developer weak but functional Left Upper Extremity: Shoulder flexors 4-/5. Shoulder abductors 4-/5. Elbow flexors 3+/5. Elbow extensors 4-/5. Access Database Developer weak ? functional Right Lower Extremity: Hip flexors 2-/5. Hip abductors 2-/5. Knee flexors 3-/5. Knee extensors 3-/5. Ankle dorsiflexors 1/5. Ankle plantarflexors 2-/5. Left Lower Extremity: NT Sensation:? Impaired in B LE as to light touch and pain Bed Mobility/Transfers: Supine <>sit Max A of LE's, patient does initially demonstrate effort and ability to move her legs to EOB Stand to sit x 3 to RW, MAX x 3, NWB L LE Gait:? Unable, patient is wheelchair-bound Balance: Static Sitting: Fair Dynamic Sitting: Poor Static Standing: oor Dynamic Standing: Poor Therapeutic procedures, 18264, 10 min Sitting at EOB R LAQ x 10 B HR x 10 R hip flex x 10 Bicep curls 1# x 20 Enma prex 1# x 10 Rowing vs theraband x 10 - good seated balance challenge Therapeutic Activities, [id number], 20 min: Bed mobility, LE movement ot EOB, verbal cues x 3 min, the provide patient assist of LEs Sit at EOB to stand to RW, Max x 2, stand with min A x 2 - x3 Sit at EOB to supine, Max X 1 of LE's Bed mobility to re-adust in bed 0 independent - cues for use of UE, tricep push to reposition. ASSESSMENT: Demonstrating ability to perform bed mobility, and participate in transfer attempt. Patient should be and is appropriate to be transferred bed to EOB, to improve overall strength and performance of this, to progress to WC transfer, which is an appropriate goal for, albeit with a slide board. She requires continued skilled PT service to improve her strength and transfer abilities, and learn slide transfer, with WC mobility efforts to gain independence. Patient will addition of leg mobility strap to assist with bed mobility, and reduce her level of assist. 1.? Decreased strength to B LE? major muscle groups 2.?Poor sitting balance 3.? Impaired activity tolerance 4.? Limitation of joint range of motion in L hand, B LE joints 5.? Mod-max A for transfers, Max assist for sit to stand 6.? Pain in L LE Impairments are contributing to the following functional limitations: 1.? Unable to perform bed to w/c without assist 2.? Increased completion time for mobility ADL performance 3.? Increased risk for falls during transfer 6.? Difficulty with managing? alone safely Improvements: Bed mobility independent with repositioning in bed Supine to EOB with assist. Sit EOB with supervision Goals: Goals X1 week 1. Supine-Sit? assist of 1, progressing toward, completes with assist of 2 2. Sit-Supine? assist of 1, met 3. Sit-squat assist of 2 or less after set up of wheelchair, not attempted, to be evaluated post continued transfer attempts 4. Squat to sit ? assist of 2 or less after set up of wheelchair, as above 5. Wheelchair propulsion if left leg supported, progressing toward with initiation of WC transfer new goals: 1. slide board transfer with A of L LE, or leg strap, bed ,.WC Plan of Care/Treatment Plan: 1-2x/day, 7 days/week x 2 weeks. Plan of care has been reviewed with the POWERED BRIDGE SPECIALIST providing the service under Physical Therapy direction. Initiate Physical Therapy intervention for strengthening, bed mobility, transfers, gait,? balance training, use of assistive device for transfers into w/c. DISCHARGE RECOMMENDATIONS:SNF as there is no way with her current status she can manage alone at home. [] ? Home with no services [] [] ? Home with services [] [] ? Home with outpatient PT [] [X] ? SNF for continued rehabilitation.? [facility] benefit [facility] for continued skilled physical therapy services in order to progress mobility level, strength, and balance in preparation for a safe discharge to home. [] ? [employer] Plant Oper[employer] [facility] [] [X] ? SNF versus LTC based on ability to participate and progress?[] []??SNF vs.? PT based on progress towards goals
--- NOTE | 2022-10-11 18:05 | W.PM.PROGNOT ---
Date of Service Date of service: 10/11/22 Time of Service: 18:05 Objective Last Vital Signs Temp 36.7 C 10/11/22 07:27 Pulse 105 H 10/11/22 07:27 Resp 16 10/11/22 07:27 BP 118/75 10/11/22 07:27 Pulse Ox 92 10/11/22 07:27 Objective Narrative Objective Narrative: Medications changed - all IV meds discontinued - one pain medication, oral dilaudid and one muscle relaxant, methocarbamol, ordered (there was flexaril and methocarbamol order as well as oxycodone and dilaudid). Discussed with patient, agreed on plan of care Discussed with Dr Moran Time Spent with Patient Time Spent with Patient: <25 minutes Time was spent: preparing to see the patient(eg.review tests), obtaining and/or reviewing separately otained hiistory, ordering medications,tests, procedures, referring, communicating with other health resident care technician, indepentently interpreting results and care coordination
[2022-10-11] MEDS: Lidocaine 5% Patch 1 PATCH TP (21:21)
[2022-10-11] MEDS: Zolpidem 5 MG TAB 10 MG PO (21:21)
[2022-10-12 07:12] VITALS: BP 117/78; PULSE 95; RESP 16; TEMP 36.3; O2SAT 92
[2022-10-12] MEDS: Senna TAB 1 TAB PO (07:56)
[2022-10-12] MEDS: diazePAM 2 MG TAB PO ×4 (07:56→21:23)
[2022-10-12] MEDS: amLODIPine 2.5 MG TAB PO (07:56)
[2022-10-12] MEDS: Enoxaparin 40 MG/0.4 ML SYR SC (07:56)
[2022-10-12] MEDS: Polyethylene Glycol 3350 17 GM PACKET PO (07:56)
[2022-10-12] MEDS: Lisinopril 10 MG TAB PO (07:56)
[2022-10-12] MEDS: Gabapentin 300 MG CAP PO ×2 (07:56→21:23)
[2022-10-12] MEDS: Docusate Sodium 100 MG CAP PO ×2 (07:56→13:07)
[2022-10-12] MEDS: Acetylcysteine 600 MG CAP 1200 MG PO ×2 (07:56→21:23)
[2022-10-12] MEDS: Metoprolol 12.5 MG TAB PO ×2 (07:57→21:23)
[2022-10-12] MEDS: Folic Acid 1 MG TAB PO (07:57)
[2022-10-12] MEDS: Acetaminophen 325 MG TAB 650 MG PO ×4 (07:57→21:23)
[2022-10-12] MEDS: Pantoprazole 40 MG TABCR PO (07:59)
[2022-10-12] MEDS: HYDROmorphone 2 MG TAB PO ×2 (08:39→21:23)
[2022-10-12] MEDS: Lidocaine Patch Removal 1 EACH TP (10:34)
[2022-10-12] MEDS: fentaNYL 100 MCG PATCH TD (11:26)
--- NOTE | 2022-10-12 15:12 | PT.INTREAT ---
Date of service: 10/12/22 Time of Service: 14:22 PT Notes Visit Reasons: Femur FX SWING BED LEVEL 1 Inpatient Physical Therapy Treatment Note [facility] Date: 10/12/2022 PRECAUTIONS: Activity as Tolerated, NWB L LE, knee immobilizer with all activity SUBJECTIVE: Missy is pleasant and agreeable to participating in PT. She reports that she is tolerating oral pain meds, pretty well. OBJECTIVE: PAIN: Patient c/o pain in L LE with all movement and activity BED MOBILITY/TRANSFERS Supine-sit: SBA (with occasional Min A of L LE) Sit-supine: Max A x2 Sit-stand: Max A x2 Stand-sit: Max A x2 Bed-chair: Unable Static standing with FWW support and Min A x2 at EOB 3 x 10 seconds, maintain NWB status on L LE. THEREX: Patient reports compliance with independent completion of HEP for UE and LE strengthening and stabilization. ASSESSMENT: Patient tolerated static standing with FWW support and Min A 3 x10 seconds. She continues to be limited by pain in L LE and global weakness. PLAN: Continue with global strengthening and transfer training for continued progression toward baseline level of function. TREATMENT CODE/TIME: 23 minutes; [id number] x2 (14:22)
--- NOTE | 2022-10-12 16:29 | CHAPLAIN ---
Missy was sitting up in bed brushing he hair when I visited. She was pleasant as always, although she did say she is getting tired of being here. She'll remain here for PT, according to Care Management notes, as her insurance doesn't cover a rehab stay at a facility. Missy is in a wheelchair at baseline, but fell recently and has been here since with a fracture. She is working on getting back to being able transfer from her wheelchair to the bed. She has a caregiver/friend who has been visiting and yesterday had a few visitors, she said.
[2022-10-12] MEDS: Lidocaine 5% Patch 1 PATCH TP (21:23)
[2022-10-12] MEDS: Zolpidem 5 MG TAB 10 MG PO (21:23)
[2022-10-12] MEDS: Ondansetron O.D.T. 4 MG TABEF PO (23:20)
[2022-10-12] MEDS: Ketorolac 10 MG TAB PO (23:20)
[2022-10-13 07:47] VITALS: BP 95/59; PULSE 78; RESP 19; TEMP 37; O2SAT 97
[2022-10-13] MEDS: Gabapentin 300 MG CAP PO ×2 (08:25→20:22)
[2022-10-13] MEDS: Senna TAB 1 TAB PO ×2 (08:25→20:21)
[2022-10-13] MEDS: diazePAM 2 MG TAB PO ×4 (08:27→20:22)
[2022-10-13] MEDS: Acetaminophen 325 MG TAB 650 MG PO ×4 (08:27→20:21)
[2022-10-13] MEDS: amLODIPine 2.5 MG TAB PO (08:28)
[2022-10-13] MEDS: Pantoprazole 40 MG TABCR PO (08:28)
[2022-10-13] MEDS: Acetylcysteine 600 MG CAP 1200 MG PO ×2 (08:28→20:22)
[2022-10-13] MEDS: Lisinopril 10 MG TAB PO (08:28)
[2022-10-13] MEDS: Folic Acid 1 MG TAB PO (08:28)
[2022-10-13] MEDS: Docusate Sodium 100 MG CAP PO ×3 (08:29→20:21)
[2022-10-13] MEDS: Enoxaparin 40 MG/0.4 ML SYR SC (08:29)
[2022-10-13] MEDS: Lidocaine Patch Removal 1 EACH TP (10:43)
--- NOTE | 2022-10-13 12:02 | NUR.NOTE ---
Nursing Note: sloughing wound noted to right heel. On assessment, heel floated appropriately and mepilex over wound. Charge nurse notified of need for wound consult. Confirmed by charge that ostomy care nurse notified.
[2022-10-13] MEDS: HYDROmorphone 2 MG TAB PO ×3 (13:11→21:58)
--- NOTE | 2022-10-13 14:37 | PTTR_ITS ---
Date of service: 10/13/22 Time of Service: 10:30 PT Notes Visit Reasons: Femur FX SWING BED LEVEL 1 Inpatient Physical Therapy Treatment Note [facility] Date: 10/13/2022 PRECAUTIONS: Activity as Tolerated, NWB L LE, knee immobilizer with all activity SUBJECTIVE: Missy is pleasant and agreeable to participating in PT. Post- session she reports that she feels much better about her progress today OBJECTIVE: Co-treatment with Xiao Reaves, PT. PAIN: Patient c/o minimal pain in L LE with repositioning BED MOBILITY/TRANSFERS Supine-sit: SBA Sit-supine: SBA with occasional Min A of L LE Sit-stand: Mod A x2 with STEDY Stand-sit: Mod A x2 with STEDY Static standing in STEDY with CGA + Min A 3 x 10 seconds, able to maintain NWB status on L LE. THEREX: Patient reports compliance with independent completion of HEP for UE and LE strengthening and stabilization (observed completing exercises upon entering room). MANUAL THERAPY: Gently mobilized patient into L knee extension and L hip into neutral position (from internal rotation), followed by application of knee immobilizer. Gentle mobilization into plantarflexion and dorsiflexion, bilaterally, ~x1 minute. Upon completion of PT session, patient was positioned in bed with knee in extension and hip in a neutral position. ASSESSMENT/PLAN: Continue promotion of neutral hip position as well as knee extension while resting. Patient could benefit from B ankle supports for promotion of neutral foot positioning. Implement abduction wedge pillow tomorrow for positioning. Continue with sit<>stand transfers and global strengthening for progression toward squat-pivot transfer bed<>wheelchair, when safe and appropriate. TREATMENT CODE/TIME: 45 minutes; [id number] x3 (10:30)
[2022-10-13 20:20] VITALS: BP 120/78; PULSE 73; RESP 18; TEMP 36.4; O2SAT 95
[2022-10-13] MEDS: Metoprolol 12.5 MG TAB PO (20:21)
[2022-10-13] MEDS: Zolpidem 5 MG TAB 10 MG PO (21:57)
[2022-10-13] MEDS: Lidocaine 5% Patch 1 PATCH TP (21:58)
[2022-10-14 07:12] VITALS: BP 122/75; PULSE 90; RESP 17; TEMP 36.4; O2SAT 96
[2022-10-14] MEDS: Pantoprazole 40 MG TABCR PO (08:54)
[2022-10-14] MEDS: Gabapentin 300 MG CAP PO ×2 (08:54→19:40)
[2022-10-14] MEDS: HYDROmorphone 2 MG TAB PO ×2 (08:54→21:36)
[2022-10-14] MEDS: diazePAM 2 MG TAB PO ×4 (08:55→19:40)
--- NOTE | 2022-10-14 09:00 | PDOC.CMACT ---
- If Service Date Differs Date of service: 10/14/22 Time of Service: 09:00 Care Management Activity Note S/O:Missy has enjoyed visiting with staff and friends from the community as well as talking to friends on the phone. She would enjoy music therapy and pet therapy if they become available. Missy also enjoys watching television and doing word search puzzles. She gets out of bed every day for a time but cannot ambulate. In conversation Missy shared with CM that she used to draw and paint but has not done either in a long time. She had been told she was very good at it and might like to try it again.. was able to provide Missy with a small water color set and portable drawing set to engage in that activity. A: Missy is a 67 year old woman admitted on 09/25/22 with a fractured femur. She was transitioned to Swingbed-1 on 10/03/22. P: Missy will remain in SWB1 to continue to work with PT/OT while she is non weight bearing. She will progress toward indpendence with mobility/transfers once she is able to bear weight.
[2022-10-14] MEDS: Metoprolol 12.5 MG TAB PO ×2 (09:15→19:42)
[2022-10-14] MEDS: Senna TAB 1 TAB PO ×2 (09:15→19:40)
[2022-10-14] MEDS: Folic Acid 1 MG TAB PO (09:15)
[2022-10-14] MEDS: amLODIPine 2.5 MG TAB PO (09:15)
[2022-10-14] MEDS: Acetaminophen 325 MG TAB 650 MG PO ×4 (09:15→19:40)
[2022-10-14] MEDS: Lisinopril 10 MG TAB PO (09:16)
[2022-10-14] MEDS: Docusate Sodium 100 MG CAP PO ×3 (09:16→19:41)
[2022-10-14] MEDS: Polyethylene Glycol 3350 17 GM PACKET PO (09:16)
[2022-10-14] MEDS: Lidocaine Patch Removal 1 EACH TP (09:16)
[2022-10-14] MEDS: Enoxaparin 40 MG/0.4 ML SYR SC (09:16)
--- NOTE | 2022-10-14 10:43 | PT.INTREAT ---
Date of service: 10/14/22 Time of Service: 09:15 PT Notes Visit Reasons: Femur FX SWING BED LEVEL 1 Inpatient Physical Therapy Treatment Note [facility] Date: 10/14/2022 PRECAUTIONS: Activity as Tolerated, NWB L LE, knee immobilizer with all activity SUBJECTIVE: Missy is pleasant and agreeable to participating in PT. She reports that she is having more pain in L LE today. OBJECTIVE: Patient found with knee in a flexed position propped on pillow. Provided continued education on importance of maintaining knee extension. PAIN: Patient c/o pain in L LE with all mobility BED MOBILITY/TRANSFERS Supine-sit: SBA (patient requires extra time to complete task without physical assist) Sit-stand: Mod A x2 with STEDY Stand-sit: Mod A x2 with STEDY Static standing in STEDY with Min A x2 for 3 x 5 seconds, able to maintain NWB status on L LE. THEREX: Patient reports compliance with independent completion of HEP for UE and LE strengthening and stabilization MANUAL THERAPY: Gently mobilized patient into L knee extension and L hip into neutral position (from internal rotation), followed by application of knee immobilizer. Gentle mobilization into plantarflexion and dorsiflexion, bilaterally, ~x30 seconds. Upon completion of PT session, patient was positioned in chair with knee in extension and hip in a neutral position. ASSESSMENT/PLAN: Continue education on and promotion of neutral hip position as well as knee extension while resting. Patient could benefit from B ankle supports for promotion of neutral foot positioning. Implement abduction wedge pillow for positioning. Continue with sit<>stand transfers and global strengthening for progression toward squat-pivot transfer bed<>wheelchair, when safe and appropriate. TREATMENT CODE/TIME: 40 minutes; [id number] x3 (09:15)
[2022-10-14] MEDS: Acetylcysteine 600 MG CAP 1200 MG PO ×2 (11:51→19:40)
[2022-10-14] MEDS: Collagenase 30 GM TUBE TP (19:00)
--- NOTE | 2022-10-14 19:55 | WOUNDCONS ---
- If Service Date Differs Date of service: 10/14/22 Time of Service: 18:00 Wound Initial Evaluation Narrative: Pt admitted for a closed left distal femur fracture following a fall while transferring herself from the bed to the chair. The fracture has been deemed inoperable and is being managed conservatively. Pt lives alone at the [facility]. Pt has a history of Myasthenia gravis with chronic ambulatory dysfunction and neuropathy of lower extremities. 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, Ataxia, Carpal tunnel syndrome of left wrist, Chronic renal insufficiency, COPD, Depression, External bleeding hemorrhoids, Former smoker, Gastric ulcer, gluten intolerance, lacunar cerebrovascular accident, Hyperlipidemia, Hypomagnesemia, Hypoxia, Insomnia, Oropharyngeal dysphagia, Peripheral neuropathy, Prediabetes, Prerenal azotemia, Protein malnutrition, Rupture of left proximal biceps tendon, Spasticity, Spinal stenosis, Syrinx of spinal cord from C3 and extending to T11, Tachycardia, Ulnar neuropathy of left upper extremity, Body Four View: 1 - stage 2 pressure ulcer - Wound left heel Wound Type: Pressure Ulcer, Partial Thickness Pressure Ulcer Stage: II Wound General Appearance: Draining, Bleeding, Unapproximated Wound Bed Greatest Portion: Yellow (Slough) Wound Bed Lesser Portion: Red (Granulation) Wound Surrounding Tissue Appearance: [place], Edges Rolled, Other Percent of Wound Bed Granulated/Red: 75 (post sharp debridement) Percent of Wound Bed Slough/Yellow: 25 (post sharp debridement) Percent of Wound Bed Eschar/Black: 0 Wound Length: 0.39 in (1cm) Wound Width: 0.87 in (2.2cm) Wound Depth: 0.08 in (0.2cm) Wound Drainage Amount: Moderate Wound Drainage Odor: None/Absent Wound Drainage Description: Brown Wound Topical Solution/Irrigant: Other (Anasept) Wound Debridement Method: Forceps, Conservative Sharp, Other (scissors) Wound Debridement Result: Healthy Tissue Revealed, Yellow Sloughing Remains, Stopped Due to Bleeding Wound Debridement Amount of Tissue Removed: Moderate - Circulation, Sensation, Motion Edema Degree: 2+ Peripheral Pulse Strength: Weak Capillary Refill: Greater than 3 seconds Sensation Description: Paresthesia, Numbness, Coldness Skin Temperature: Cool Skin Color: Pale - MARY Comment:: Abn weak pulse. Possibility of severe PAD or incompressible arteries. - Pain Pain Level: 4 (at end of debridement. Procedure ended.) Pain Scale Used: Adult Pain Description: Sharp (Most of treatment provided without any discomfort. Aborted as soon as patient verbalized discomfort.) Pain Duration/Frequency: Other (At end of debridement.) - Photo Photo: - Treatment/Dressing Change Topicals/Ointments: Santyl Cleanse With: Anasept Dressing Types: Mepilex w/Border, Skin Prep - Nutrition Education Reviewed Nutrition Education: Yes Note: Discussed the need for increased protein for wound healing. Pt states that she has been eating better since being in the hospital. States at home she basically eats one meal a day that is delivered by meals on wheels. Otherwise states that she has no interest in eating. Discussed forms of protein such as peanut butter, meats, cheeses, shakes to promote wound healing. Discussed having a dietitian see her to review protien requirements and recommendations. May also recommend appetite enhancers to aid in her intake. - Recomendation Recomendation:: Right heel: 1. Cleanse the wound with Anasept cleanser, allow to dwell for 2 minutes. 2. Pat dry. 3. Apply a nickel thickness of Santyl gel to the wound bed. 4. Apply skin prep to the milly wound area. 5. Cover with mepilex dressing. 6. Change daily and prn. Apply foam booties once available. (Does have padded heel protectors in the meantime). Keep heels off of the bed surface by floating the heels with pillows. Reposition pt at least every two hours. When positioned on her sides, have a pillow between her knees and ankles. Use another pillow behind back and hips. Use pillow to support upper arm and head. A full recliner air cushion ([facility] Reference # [id number]) has been applied to the patient's recliner. With the history of Myasthenia Gravis and severe spinal stenosis, she is the optimal patient to review this product. We will follow the patient to observe it's functionality. Physcian/Nurse Practioner Notified: Yes Referrals: Dietary Treatment Time - Time Total Time Spent with Patient: 90 minutes - Patient Will be Seen Weekly Treatment: daily - For: For:: 2 weeks
[2022-10-14] MEDS: Zolpidem 5 MG TAB 10 MG PO (21:36)
[2022-10-14] MEDS: Lidocaine 5% Patch 1 PATCH TP (21:36)
[2022-10-15 07:15] VITALS: BP 129/84; PULSE 104; RESP 16; TEMP 36.6; O2SAT 94
[2022-10-15] MEDS: Polyethylene Glycol 3350 17 GM PACKET PO (07:52)
[2022-10-15] MEDS: Acetaminophen 325 MG TAB 650 MG PO ×4 (07:52→21:37)
[2022-10-15] MEDS: Pantoprazole 40 MG TABCR PO (07:53)
[2022-10-15] MEDS: Docusate Sodium 100 MG CAP PO ×3 (07:53→21:38)
[2022-10-15] MEDS: Folic Acid 1 MG TAB PO (07:53)
[2022-10-15] MEDS: Gabapentin 300 MG CAP PO ×2 (07:53→21:38)
[2022-10-15] MEDS: Senna TAB 1 TAB PO ×2 (07:53→21:38)
[2022-10-15] MEDS: Metoprolol 12.5 MG TAB PO ×2 (07:53→21:39)
[2022-10-15] MEDS: diazePAM 2 MG TAB PO ×4 (07:53→21:38)
[2022-10-15] MEDS: Acetylcysteine 600 MG CAP 1200 MG PO ×2 (07:53→21:39)
[2022-10-15] MEDS: amLODIPine 2.5 MG TAB PO (07:53)
[2022-10-15] MEDS: Lisinopril 10 MG TAB PO (07:54)
[2022-10-15] MEDS: Enoxaparin 40 MG/0.4 ML SYR SC (07:54)
[2022-10-15] MEDS: Collagenase 30 GM TUBE TP (10:03)
--- NOTE | 2022-10-15 10:23 | NUR.NOTE ---
wound care performed to R heel as ordered. scant amt of drainage to old Mepilex. area cleaned, santyl applied, and new Mepilex placed. legs elevated bilat on pillows. pt had immobilizer completely off, so this nurse placed it back on and fastened straps.
[2022-10-15] MEDS: Lidocaine Patch Removal 1 EACH TP (10:52)
[2022-10-15] MEDS: fentaNYL 100 MCG PATCH TD (11:44)
--- NOTE | 2022-10-15 15:23 | PT.INTREAT ---
Date of service: 10/15/22 Time of Service: 12:40 PT Notes Visit Reasons: Femur FX SWING BED LEVEL 1 Inpatient Physical Therapy Treatment Note [facility] Date: 10/15/2022 PRECAUTIONS: Activity as Tolerated, NWB L LE, knee immobilizer with all activity SUBJECTIVE: Missy is pleasant and agreeable to participating in PT. She reports that she is afraid of the pain she will have in her L LE with activity. OBJECTIVE: Patient found with L knee in a flexed position propped on pillow and L hip in internal rotation. Provided continued education on importance of maintaining knee extension. PAIN: Patient c/o pain in L LE with all mobility BED MOBILITY/TRANSFERS Supine-sit: Due to limited available assistance, provided Mod A for purpose of time Bed-commode: Mod A + assist with L LE Commode-bed: Mod A + assist with L LE THEREX: Patient reports compliance with independent completion of HEP for UE and LE strengthening and stabilization MANUAL THERAPY: Gently mobilized patient into L knee extension and L hip into neutral position (from internal rotation), followed by application of knee immobilizer. Upon completion of PT session, patient was positioned in bed with knee in extension and hip in a neutral position. ASSESSMENT/PLAN: Continue education on and promotion of neutral hip position as well as knee extension while resting. Patient could benefit from B ankle supports for promotion of neutral foot positioning. Implement abduction wedge pillow for positioning. Continue with sit<>stand transfers and global strengthening for progression toward squat-pivot transfer bed<>wheelchair, when safe and appropriate. TREATMENT CODE/TIME: 25 minutes; 89116 x2 (12:40)
--- NOTE | 2022-10-15 17:29 | CHAPLAIN ---
Missy said she thinks she here until the middle or end of the month. She remains very pleasant and said she thinks she here for a reason, and knows it takes time for her bones to heal, and is taking things one day at a time. She asked for a pencil and comb.
[2022-10-15 21:35] VITALS: BP 126/73; PULSE 97; RESP 16; TEMP 36.9; O2SAT 96
[2022-10-15] MEDS: Zolpidem 5 MG TAB 10 MG PO (21:39)
[2022-10-15] MEDS: Lidocaine 5% Patch 1 PATCH TP (21:41)
[2022-10-15] MEDS: HYDROmorphone 2 MG TAB PO (21:51)
[2022-10-16 09:00] VITALS: BP 101/51; PULSE 94; RESP 16; TEMP 36.6; O2SAT 91
[2022-10-16] MEDS: Enoxaparin 40 MG/0.4 ML SYR SC (09:06)
[2022-10-16] MEDS: Polyethylene Glycol 3350 17 GM PACKET PO (09:06)
[2022-10-16] MEDS: Metoprolol 12.5 MG TAB PO ×2 (09:07→19:52)
[2022-10-16] MEDS: Acetylcysteine 600 MG CAP 1200 MG PO ×2 (09:08→19:52)
[2022-10-16] MEDS: Folic Acid 1 MG TAB PO (09:08)
[2022-10-16] MEDS: diazePAM 2 MG TAB PO ×4 (09:08→19:53)
[2022-10-16] MEDS: Gabapentin 300 MG CAP PO ×2 (09:09→19:51)
[2022-10-16] MEDS: Acetaminophen 325 MG TAB 650 MG PO ×4 (09:09→19:52)
[2022-10-16] MEDS: Pantoprazole 40 MG TABCR PO (09:10)
[2022-10-16] MEDS: Senna TAB 1 TAB PO ×2 (09:10→19:51)
[2022-10-16] MEDS: Docusate Sodium 100 MG CAP PO ×3 (09:10→19:52)
[2022-10-16] MEDS: Lisinopril 10 MG TAB PO (09:10)
[2022-10-16] MEDS: amLODIPine 2.5 MG TAB PO (09:11)
[2022-10-16] MEDS: Collagenase 30 GM TUBE TP (09:13)
[2022-10-16] MEDS: Lidocaine Patch Removal 1 EACH TP (10:14)
[2022-10-16] MEDS: HYDROmorphone 2 MG TAB PO ×2 (13:43→19:50)
[2022-10-16] MEDS: Ondansetron O.D.T. 4 MG TABEF PO (19:21)
[2022-10-16] MEDS: Zolpidem 5 MG TAB 10 MG PO (19:51)
[2022-10-16] MEDS: Lidocaine 5% Patch 1 PATCH TP (19:53)
[2022-10-16 20:20] VITALS: BP 111/70; PULSE 75; RESP 16; TEMP 36.7; O2SAT 97
[2022-10-17] MEDS: HYDROmorphone 2 MG TAB PO ×3 (02:22→20:52)
[2022-10-17 06:29] VITALS: BP 121/75; PULSE 85; RESP 19; TEMP 36.7; O2SAT 90
[2022-10-17] MEDS: Polyethylene Glycol 3350 17 GM PACKET PO ×2 (07:42→20:52)
[2022-10-17] MEDS: Enoxaparin 40 MG/0.4 ML SYR SC (07:43)
[2022-10-17] MEDS: Metoprolol 12.5 MG TAB PO ×2 (07:44→20:51)
[2022-10-17] MEDS: amLODIPine 2.5 MG TAB PO (07:45)
[2022-10-17] MEDS: Lisinopril 10 MG TAB PO (07:45)
[2022-10-17] MEDS: Folic Acid 1 MG TAB PO (07:45)
[2022-10-17] MEDS: Pantoprazole 40 MG TABCR PO (07:45)
[2022-10-17] MEDS: Docusate Sodium 100 MG CAP PO ×3 (07:45→20:51)
[2022-10-17] MEDS: Senna TAB 1 TAB PO ×2 (07:46→20:51)
[2022-10-17] MEDS: Acetylcysteine 600 MG CAP 1200 MG PO ×2 (07:46→20:51)
[2022-10-17] MEDS: Acetaminophen 325 MG TAB 650 MG PO ×4 (07:46→20:51)
[2022-10-17] MEDS: Collagenase 30 GM TUBE TP (07:47)
[2022-10-17] MEDS: Gabapentin 300 MG CAP PO ×2 (07:47→20:51)
[2022-10-17] MEDS: diazePAM 2 MG TAB PO ×4 (07:47→20:51)
[2022-10-17 07:53] VITALS: RESP 20; O2SAT 93
[2022-10-17] MEDS: Lidocaine Patch Removal 1 EACH TP (09:38)
[2022-10-17 09:39] VITALS: RESP 16; O2SAT 98
[2022-10-17] MEDS: Ketorolac 10 MG TAB PO (15:19)
[2022-10-17] MEDS: Lidocaine 5% Patch 1 PATCH TP (20:55)
[2022-10-17] MEDS: Zolpidem 5 MG TAB 10 MG PO (20:56)
[2022-10-18] MEDS: HYDROmorphone 2 MG TAB PO ×3 (04:20→21:39)
[2022-10-18 07:38] VITALS: BP 122/76; PULSE 89; RESP 12; TEMP 36.1; O2SAT 94
[2022-10-18] MEDS: Acetaminophen 325 MG TAB 650 MG PO ×4 (07:51→21:00)
[2022-10-18] MEDS: Acetylcysteine 600 MG CAP 1200 MG PO ×2 (07:51→21:00)
[2022-10-18] MEDS: Collagenase 30 GM TUBE TP (07:52)
[2022-10-18] MEDS: amLODIPine 2.5 MG TAB PO (07:52)
[2022-10-18] MEDS: diazePAM 2 MG TAB PO ×4 (07:52→21:45)
[2022-10-18] MEDS: Enoxaparin 40 MG/0.4 ML SYR SC (07:53)
[2022-10-18] MEDS: Docusate Sodium 100 MG CAP PO ×3 (07:53→21:00)
[2022-10-18] MEDS: Folic Acid 1 MG TAB PO (07:53)
[2022-10-18] MEDS: Gabapentin 300 MG CAP PO ×2 (07:53→21:00)
[2022-10-18] MEDS: Lisinopril 10 MG TAB PO (07:54)
[2022-10-18] MEDS: Pantoprazole 40 MG TABCR PO (07:54)
[2022-10-18] MEDS: Polyethylene Glycol 3350 17 GM PACKET PO ×2 (07:54→21:00)
[2022-10-18] MEDS: Metoprolol 12.5 MG TAB PO ×2 (07:54→21:00)
[2022-10-18] MEDS: Ketorolac 10 MG TAB PO (07:54)
[2022-10-18] MEDS: Senna TAB 1 TAB PO ×2 (07:55→21:00)
--- NOTE | 2022-10-18 09:08 | DI.RAD_ITS ---
Exam(s) XR KNEE LT 2V AP,LAT EXAM: XR KNEE LT 2V AP,LAT CLINICAL HISTORY: f/u distal femur fx. TECHNIQUE: 2D digital imaging was performed. Three views. COMPARISON: CR XR KNEE LT 2V AP,LAT from 10/06/2022 FINDINGS: BONES: No change in alignment of distal femoral fracture. JOINTS: The knee is normally aligned. Decreased size of hemarthrosis. IMPRESSION: Stable alignment of distal femoral fracture. DATA REPOSITORY: RADIATION DOSE DELIVERED:
[2022-10-18] MEDS: Lidocaine Patch Removal 1 EACH TP (10:00)
--- NOTE | 2022-10-18 11:29 | PT.INPN ---
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 wheelchair-bound.? STEDY lift only to ensure WB compliance on L LE. Per Dr. Up's progress note on 10/06/2022:? 1) May start knee range of motion after 10/23/2022 and weight bearing around 11/06/22-11/20/22. 2) NWB on the L LE with AD until 11/05/2022.? Per Dr. Up's note on 09/26/2022: 1) Keep L knee in extension using knee immobilizer when OOB, NO pillow under knee at any time until 10/24/2022. Subjective:? Agreeable to transferring onto bedside chair today. Missy reports 4/10 pain in the L LE with stand pivot transfer using the FWW this morning. Initially reported 7/10 pain in the same area at rest in bed early this morning. Objective: General inspection:? Supine in bed.? Brar catheter in place.? ? 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 KI not in place, pillow placed under knee. Flexible plantarflexion contracture in B sides noted. Mental Status: Alert and oriented as to person and place. Some mental lapses noted throughout session, question short-term memory loss. Was anxious duirn f ROM: Right Upper Extremity: ? Shoulder Flexion WFL. Shoulder abduction WFL. Elbow flexion WFL. Wrist flexion WFL. Functional opening and closing of hand limited Left Upper Extremity:? Shoulder Flexion WFL. Shoulder abduction WFL. Elbow flexion WFL. Wrist flexion WFL. Awkard opening and closing of hand WFL. Right Lower Extremity: Hip flexion allows up to 60 degrees. Hip abduction 25 degrees. Knee flexion up to 90 degrees passively. Ankle dorsiflexion -45. Ankle plantarflexion contracture to about 45 degrees. Left Lower Extremity: In supine, patient is able to do a assisted straight leg raise with L KI on to about 45 degrees. Hip allowed up to 90 degrees passively during supine to sit . Knee NT. Active ankle DF to about 5 degees only from a fully platarflexed position. Strength: Right Upper Extremity: Shoulder flexors 4/5. Shoulder abductors 4/5. Elbow flexors 4-/5. Elbow extensors 4/5. Magnet Maker weak but functional Left Upper Extremity: Shoulder flexors 4-/5. Shoulder abductors 4-/5. Elbow flexors 3+/5. Elbow extensors 4-/5. Magnet Maker weak ? functional Right Lower Extremity: Hip flexors 3-/5. Hip abductors 2-/5. Knee flexors 3-/5. Knee extensors 3-/5. Ankle dorsiflexors 1/5. Ankle plantarflexors 2-/5. Left Lower Extremity: Hip NT. Knee NT. Ankle 1/5. Sensation:? Intact as to pain, impaired as to light touch in B LE Bed Mobility/Transfers: Supine to sit: stand by assist, KI on L LE Stand to sit: minimal assist x 2, KI on L LE Bed to chair: moderate assist of 2 and minimal assist of a third person for WB compliance. Patient putting undue weight on the L LE during this activity, unable to follow instructions to lean to the R to off load L LE, however reports a reduction in pain to 4/10. Unable to use B UE fully to puish down on walker handle for support. Got mildly anxious but was able to complete activity with encouragement Chair to bed: STEDY lift with assist of 2 to ensure that L knee is maintained in extension at all times. Unable to bring lift close enough due to this precaution so patient requires moderate assist to stand up from chair. Still unable to maintain NWB precaution in the L LE due to pre-existing paraparesis and MG. Gait:? Unable, patient is wheelchair-bound. Balance: Static Sitting: Fair Dynamic Sitting: Poor Static Standing: Poor Dynamic Standing: Unable Neuro re-ed: 1) Trunk mobilization combined with UE strengthening while on chair working on flexion/extension x 10 using B hands to pull on front edge of armrests for support 2) Trunk mobilization combined with UE strengthening while on gregorio working on lateral flexion to R and L x 10 using B forearms on the armrests for support Thera Ex: 1) Active ankle DF to about 5 degrees from a plantarflexed position x 10 2) R hip abduction/adduction x 5 ASSESSMENT: Now able to slowly perform sit to supine with stand by assist. Unable to comply with weight bearing precaution with stand pivot using FWW due to B UE weakness and pre-existing paraparesis (from previous syrinx at C3-T11 level) compounded by myasthenia gravis. Recommending use of STEDY lift for all transfers for now to ensure compliance with WB on LE. Conferred with REKHA Arshad regarding continued maintenance of L knee in extension using the knee immobilizer and avoidance of use of pillow under L knee. Nurse Roxana and Nurse Tri updated of said plan. LOUIS monk. Per Dr. Up, patient may proceed with knee range of motion after 10/23/2022 and weight bearing around 11/06/22-11/20/22. Will clarify amount of WB orthopod would like as the date approaches. Patient has had quite the ordeal with bed mobility progression in the past couple of weeks due to WB precaution, pre-existing paraparesis, myasthenia gravis, and behavioral/anxiety issues which necessitated use of direct bed-chair transfer using forward-backward technique as patient became so anxious about use of slide board. Patient presents with clinical signs and symptoms consistent with current/admitting diagnoses that have resulted to mobility limitations, gait instability, generalized weakness, and overall ADL decline as demonstrated by the following impairment level findings: 1.? Decreased strength to B UE/LE? major muscle groups 2.? Impaired sitting balance but imporved from the last progress note done 3.? WB precuation: NWB L LE until 11/05/2022 4.? Limitation of joint range of motion in L hand, B UE joints 5.? Pain in L UE 6.? Intermittent spasms in B LE with L<<R (resolved) 7. Beginning flexible plantarflexion contracture in B ankles Impairments are contributing to the following functional limitations: 1.? Decline in bed mobility skills 2.? Decline in transfer skills 3.? Wheelchair-bound 4.? Increased completion time for mobility ADL performance 5.? Increased risk for falls 6. Increased risk for skin breakdown/infection Goals: Goals X1 week 1. Supine-Sit? assist of 1. MET. Progress to modified independent using B UE as of 10/18/2022. 2. Sit-Supine? assist of 1,?NOT MET. CONTINUE. 3. Sit-squat assist of 2 or less with set up assist,??NOT MET, CONTINUE 5. Wheelchair propulsion if left leg supported MET, patient is independent with propulsion with B LE set up since 2 weeks ago 6. Slide board transfer with A of L LE, or leg strap, bed ,.WC DISCONTINUE. Patient gets increasingly anxious about use slide board transfer. 7. Patient will maintain static standing with NWB in L LE for about 5 minutes inside parallel bars or with use of FWW NEW GOAL Plan of Care/Treatment Plan: 1-2x/day, 7 days/week x 2 weeks. Plan of care has been reviewed with the WEB DEVELOPMENT INTERN providing the service under Physical Therapy direction. Initiate Physical Therapy intervention for strengthening, bed mobility, transfers, gait,? balance training, use of assistive device for transfers into w/c. DISCHARGE RECOMMENDATIONS: [] ? Home with no services [] [] ? Home with services [] [] ? Home with outpatient PT [] [X] ? SNF for continued rehabilitation.? Patient will benefit from [facility] for continued skilled physical therapy services in order to progress mobility level, strength, and balance in preparation for a safe discharge to home. [] ? [facility] [] [X] ? SNF versus LTC based on ability to participate and progress?[] []??SNF vs.? PT based on progress towards goals TREATMENT CODE/TIME: Session 1 -- 09159 x 25 minutes, 00922 x 13 minutes beginning at 9:26 AM. Session 2 -- 10644 x 25 minutes beginning at 13:00 PM. Thank you for the opportunity to participate in the care of this patient. Ching Viveros PT, DPT, CLT [facility] [place], [place]
--- NOTE | 2022-10-18 12:40 | NS.NUTBLAN_ITS ---
Date of service: 10/18/22 Time of Service: 12:40 Nutritional Consult ASSESSMENT: Met with Missy today. She was admitted 09/25/22 for closed fracture to femur(non operative) and has been unable to walk for about a year due to spinal stenosis. Now with stage 2 pressure wound on left heel. Medical Chart indicates typical weight for her is 140 lbs. Has lost about 15 lbs in last couple of years. [place] [facility] [place]. Missy reports at home she only eats one meal a day (meals on wheels) and snacks rest of day. Reviewed importance of high protein foods. She will increase her milk intake to 3-4 cups daily- providing a total of 500 kcalories and 30 g protein. Missy appears well nourished, suspect weight loss due to muscle loss. Weight fluctuations may also be due to edema. Following regular meal plan with excellent intake since admit. Appears to be meeting 100% of protein needs at this time. No need for supplementation at this time. MONITORING AND EVALUATION: Will monitor weight, po intake, labs and make adjustements as needed. Time Spent in Nutritional Counseling and Treatment: 10
--- NOTE | 2022-10-18 12:48 | CMACTNOTE_ITS ---
- If Service Date Differs Date of service: 10/18/22 Time of Service: 12:48 Care Management Activity Note S/O:Missy enjoys visiting with staff and friends from the community as well as talking to friends on the phone. She informed that she called her btzrnd-hn-hoe in [place] this weekend and that they had a nice chat. They have not talked in a while so Missy enjoyed the time on the phone with her.She would enjoy music therapy and pet therapy if they become available.Missy has begun to use the sketching book that she was given last week and admitted that she is enjoying it. She has done a few small drawings and plans to do more. Missy also enjoys watching television and doing word search puzzles. She gets up in a chair mst days but is unable to walk. In nicer weather she would likely benefit from being outdoors for brief periods. A: Missy is a 67 year old woman admitted on 09/25/22 with a fractured femur. She was transitioned to Swingbed-1 on 10/03/22. P: Missy will remain in SWB1 to continue to work with PT/OT while she is non weight bearing. She will progress toward indpendence with mobility/transfers once she is able to bear weight.
[2022-10-18] MEDS: fentaNYL 100 MCG PATCH TD (13:07)
--- NOTE | 2022-10-18 16:57 | W.PM.PROGNOT ---
Date of Service Date of service: 10/18/22 Time of Service: 16:57 Assessment and Plan Assessment and plan (1) Closed fracture of left distal femur: Status: Acute Assessment and plan: 67 year old female with Left intra-articular minimally displaced distal femur fx after a fall at assisted living facility where she lives Nonoperative management. Maintain Left knee immobilizer: While patient is resting in bed and not repositioning or moving, knee immobilizer should be opened up or at least loosened to reduce pressure on skin and chance of skin breakdown. Knee immobilizer should be relatively snug during repositioning and while out of bed. Maintain knee straight in full extension for 4 weeks. Non-weight bearing left lower extremity about 6-8 weeks. Replace soft roll padding and/or Elvis bandage as needed to protect skin from knee immobilizer. Follow-up with trauma desktop publishing specialist Dr. Alok Byrd at [facility] (2) Hypertension: Status: Chronic Assessment and plan: blood pressures improved with medication reductions continue to monitor blood pressure and adjust meds as needed. (3) Myasthenia gravis: Status: Chronic Assessment and plan: Stable and at baseline Continue outpatient medical therapy (4) Spinal stenosis: Assessment and plan: With chronic pain - Physical therapy (5) GERD (gastroesophageal reflux disease): Status: Chronic Assessment and plan: Continue PPI. (6) Neurogenic bladder: Status: Chronic Assessment and plan: With history of frequent UTIs, urinalysis done - negative (7) Pain: Status: Acute Assessment and plan: Continue Fentanyl patch 100 mcg change every 72 Dilaudid oral PRN apap scheduled Spasm - methocarbamol prn (8) Constipation, chronic: Status: Chronic Assessment and plan: continue bowel regimen and prn relistor as needed (9) DVT prophylaxis: Status: Acute Assessment and plan: Enoxaparin 40 mg sc (10) Discharge planning issues: Status: Acute Assessment and plan: plan for rehab is 6-8 weeks with no surgical intervention, this is HD 15 (admitted 09/26/2022) Case management is following for discharge planning Discussed with Dr Hsieh Objective Last Vital Signs Temp 36.1 C L 10/18/22 07:38 Pulse 89 10/18/22 07:38 Resp 12 10/18/22 07:38 BP 122/76 10/18/22 07:38 Pulse Ox 94 10/18/22 07:38 Time Spent with Patient Time Spent with Patient: 25-34 minutes Time was spent: preparing to see the patient(eg.review tests), ordering medications,tests, procedures, referring, communicating with other health rn intensive care unit (Nursing staff), counseling the patient and care coordination
[2022-10-18] MEDS: Nystatin POWDER 15 GM JAR TP (21:00)
[2022-10-18] MEDS: Zolpidem 5 MG TAB 10 MG PO (21:39)
[2022-10-18] MEDS: Lidocaine 5% Patch 1 PATCH TP (21:40)
[2022-10-19] MEDS: Ketorolac 10 MG TAB PO (00:43)
[2022-10-19] MEDS: HYDROmorphone 2 MG TAB PO ×3 (02:00→21:36)
[2022-10-19 06:06] LABS: Platelet Count 372 10^3/uL (130-400)
[2022-10-19 07:43] VITALS: BP 109/68; PULSE 73; RESP 18; TEMP 36.5; O2SAT 95
[2022-10-19] MEDS: Metoprolol 12.5 MG TAB PO ×2 (07:44→20:47)
[2022-10-19] MEDS: Acetaminophen 325 MG TAB 650 MG PO ×4 (07:44→20:46)
[2022-10-19] MEDS: Acetylcysteine 600 MG CAP 1200 MG PO ×2 (07:44→20:46)
[2022-10-19] MEDS: Polyethylene Glycol 3350 17 GM PACKET PO (07:44)
[2022-10-19] MEDS: Enoxaparin 40 MG/0.4 ML SYR SC (07:44)
[2022-10-19] MEDS: Pantoprazole 40 MG TABCR PO (07:45)
[2022-10-19] MEDS: Folic Acid 1 MG TAB PO (07:45)
[2022-10-19] MEDS: Senna TAB 1 TAB PO ×2 (07:45→20:47)
[2022-10-19] MEDS: Gabapentin 300 MG CAP PO ×2 (07:45→20:46)
[2022-10-19] MEDS: amLODIPine 2.5 MG TAB PO (07:45)
[2022-10-19] MEDS: Lisinopril 10 MG TAB PO (07:45)
[2022-10-19] MEDS: diazePAM 2 MG TAB PO ×4 (07:45→20:46)
[2022-10-19] MEDS: Docusate Sodium 100 MG CAP PO ×3 (07:45→20:47)
[2022-10-19] MEDS: Ondansetron O.D.T. 4 MG TABEF PO (09:27)
[2022-10-19] MEDS: Collagenase 30 GM TUBE TP (09:27)
[2022-10-19] MEDS: Lidocaine Patch Removal 1 EACH TP (09:27)
--- NOTE | 2022-10-19 13:54 | CHAPLAIN ---
Missy is here on swing bed working with OT and PT. She lease broker her left leg above the knee and has an immobilizer on. She can not bare weight on her leg yet. Missy remains pleasant and like to do word searches and crosswords. I will continue to visit.
[2022-10-19] MEDS: Nystatin POWDER 15 GM JAR TP ×2 (14:11→20:45)
--- NOTE | 2022-10-19 17:32 | PT.INTREAT ---
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 Wheelchair-bound.? STEDY lift only to ensure better WB compliance on L LE. Per Dr. Up's progress note on 10/06/2022:? 1) May start knee range of motion after 10/23/2022 and weight bearing around 11/06/22-11/20/22.? 2) NWB on the L LE with AD until 11/05/2022.? Per Dr. Up's note on 09/26/2022: 1) Keep L knee in extension using knee immobilizer when OOB, NO pillow under knee at any time until 10/24/2022. Subjective:? Reports 5-6/10 pain during transfers. [place] weak standing up from low chair in the afternoon. Objective: General inspection:? Supine in bed.? Brar catheter in place.? ? 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 KI not in place, L knee in full extension in bed, Flexible plantarflexion contracture in B sides noted. Mental Status: Alert and oriented as to person and place.? Some mental lapses noted throughout session,? question short-term memory loss.? Bed Mobility/Transfers: Supine to sit:?stand by assist, KI on L LE, needed minimal assist to L LE today Stand to sit:?stand by assist with ERIC SALVADOR on L LE. Appears to be putting minimlal weight in L LE despite maximal cueing given Bed to chair:?Minimal assist of 1 Patient putting undue weight on the L LE during this activity, unable to follow instructions to lean to the R to off load L LE, however reports a reduction in pain to 4/10.? Unable to use B UE fully to puish down on walker handle for support.? Got mildly anxious but was able to complete activity with encouragement Chair to bed:?In the afternoon, needed moderate assist of 2 to stand up from low chair as STEDY lift could not be moved close enough because of extension restriction on the L knee. Gait:? Unable, patient is wheelchair-bound. Balance: Static Sitting: Fair Dynamic Sitting: Poor Static Standing: Poor Dynamic Standing: Unable Neuro re-ed: 1) Trunk mobilization combined with UE strengthening while on chair working on flexion/extension x 10 using B hands to pull on front edge of armrests for support 2) Trunk mobilization combined with UE strengthening? while on gregorio working on lateral flexion to R and L x 10 using B forearms on the armrests for support Thera Ex: 1) Resisted hip and knee extension x 5 using manual resistance from PT while reclined in chair 2) Active ankle DF to about 5 degrees from a plantarflexed position x 10 3) GPS to R and L gastrocnemius muscles x 5 ASSESSMENT: Needed assistance with moving L LE today in bed. remains not fully compliant with bearing precaution even with use of STEDY. Since L knee needed to be in full extension at all times, STEDY could not be moved close enough to the front of the chair to allow for more efficient sit to stand from the bedside chair. Will look into changing into a higher chair to facilitate better transfer while ensuring compliance with L knee extension restriction. Per Dr. Up,? patient may proceed with knee range of motion after 10/23/2022 and weight bearing around 11/06/22-11/20/22.? Will clarify amount of WB orthopod would like as the date approaches. Patient has had quite the ordeal with bed mobility progression in the past couple of weeks due to WB precaution, pre-existing paraparesis,? myasthenia gravis, and behavioral/anxiety issues which necessitated use of direct bed-chair transfer using forward-backward technique as patient became so anxious about use of slide board. Plan of Care/Treatment Plan: 1-2x/day, 7 days/week x 2 weeks to increase independence, maximize WB compliance, and increase activity tolerance. Plan of care has been reviewed with the SALES APPOINTMENT COORDINATOR providing the service under Physical Therapy direction. Initiate Physical Therapy intervention for strengthening, bed mobility, transfers, gait,? balance training, use of assistive device for transfers into w/c. DISCHARGE RECOMMENDATIONS: [] ? Home with no services [] [] ? Home with services [] [] ? Home with outpatient PT [] [X] ? SNF for continued rehabilitation.? Patient will benefit from retirement facility placement for continued skilled physical therapy services in order to progress mobility level, strength, and balance in preparation for a safe discharge to home. [] ? Physician Compensation Analyst Care [] [X] ? SNF versus LTC based on ability to participate and progress?[] []??SNF vs.? PT based on progress towards goals TREATMENT CODE/TIME: Session 1 -- 68034 x 40 minutes beginning at 11:30 AM. Session 2 -- 56150 x 25 minutes beginning at 14:36 PM.
[2022-10-19] MEDS: Zolpidem 5 MG TAB 10 MG PO (21:36)
[2022-10-19] MEDS: Lidocaine 5% Patch 1 PATCH TP (21:39)
[2022-10-19] MEDS: Mylanta Suspension 30 ML CUP PO (21:57)
[2022-10-20 07:13] VITALS: BP 104/66; PULSE 83; RESP 16; TEMP 36.3; O2SAT 95
[2022-10-20] MEDS: Acetylcysteine 600 MG CAP 1200 MG PO ×2 (08:23→19:39)
[2022-10-20] MEDS: Enoxaparin 40 MG/0.4 ML SYR SC (08:23)
[2022-10-20] MEDS: Polyethylene Glycol 3350 17 GM PACKET PO (08:23)
[2022-10-20] MEDS: Folic Acid 1 MG TAB PO (08:24)
[2022-10-20] MEDS: Docusate Sodium 100 MG CAP PO ×3 (08:24→19:38)
[2022-10-20] MEDS: Metoprolol 12.5 MG TAB PO ×2 (08:24→19:39)
[2022-10-20] MEDS: Senna TAB 1 TAB PO (08:24)
[2022-10-20] MEDS: diazePAM 2 MG TAB PO ×4 (08:24→19:39)
[2022-10-20] MEDS: Acetaminophen 325 MG TAB 650 MG PO ×4 (08:24→19:38)
[2022-10-20] MEDS: Pantoprazole 40 MG TABCR PO (08:24)
[2022-10-20] MEDS: Lisinopril 10 MG TAB PO (08:24)
[2022-10-20] MEDS: Gabapentin 300 MG CAP PO ×2 (08:24→19:38)
[2022-10-20] MEDS: amLODIPine 2.5 MG TAB PO (08:24)
[2022-10-20] MEDS: Nystatin POWDER 15 GM JAR TP ×3 (08:25→19:39)
[2022-10-20] MEDS: Collagenase 30 GM TUBE TP (08:25)
[2022-10-20] MEDS: Lidocaine Patch Removal 1 EACH TP (09:08)
[2022-10-20] MEDS: HYDROmorphone 2 MG TAB PO ×2 (09:47→21:07)
[2022-10-20] MEDS: Ketorolac 10 MG TAB PO (11:49)
[2022-10-20 19:30] VITALS: BP 118/79; PULSE 73
[2022-10-20] MEDS: Lidocaine 5% Patch 1 PATCH TP (21:07)
[2022-10-20] MEDS: Zolpidem 5 MG TAB 10 MG PO (21:07)
[2022-10-21] MEDS: Pantoprazole 40 MG TABCR PO (06:32)
[2022-10-21 07:41] VITALS: BP 143/83; PULSE 84; RESP 14; TEMP 36.6; O2SAT 96
--- NOTE | 2022-10-21 09:54 | PGE_ITS ---
Date of Service Date of service: 10/21/22 Time of Service: 11:00 Assessment and Plan Assessment and plan (1) Closed fracture of left distal femur: Status: Acute Assessment and plan: 67 year old female about 4 weeks status post Left intra-articular minimally displaced distal femur fx 09/25/22 Patient reports some generalized aching pain about the knee. She reports that she has been wearing the knee immobilizer when out of bed and removing it when she is resting in bed. She reports that the brace is not causing any discomfort. Negative review of systems. On exam, patient resting comfortably in bed with knee immobilizer on which was removed for the exam. Left knee shows moderate generalized knee swelling. No skin lesions or ecchymosis. Resting in approximately 5-10 degrees of flexion. Moderate discomfort with gentle motion to approximately 30 degrees of flexion. Wiggles toes and demonstrates active ankle dorsiflexion and plantarflexion without any discomfort. Sensation intact to light touch Repeat left knee x-rays show largely maintained alignment of fracture. Continue nonoperative management as described previously. Last x-rays 10/18/22. May start knee range of motion after 10/23/2022 and weightbearing around 11/06/22-11/20/22. Next x-rays ordered for 11/08/2022. Call if any issues or concerns. Ortho will follow along. Objective Last Vital Signs Temp 97.9 F 10/21/22 07:41 Pulse 84 10/21/22 07:41 Resp 14 10/21/22 07:41 BP 143/83 H 10/21/22 07:41 Pulse Ox 96 10/21/22 07:41 Time Spent with Patient Time Spent with Patient: <25 minutes Time was spent: preparing to see the patient(eg.review tests), obtaining and/or reviewing separately otained hiistory, ordering medications,tests, procedures, referring, communicating with other health day care home provider, indepentently interpreting results, counseling the patient and care coordination
[2022-10-21] MEDS: Lidocaine Patch Removal 1 EACH TP (09:55)
[2022-10-21] MEDS: Enoxaparin 40 MG/0.4 ML SYR SC (09:58)
[2022-10-21] MEDS: Gabapentin 300 MG CAP PO ×2 (09:58→19:34)
[2022-10-21] MEDS: Acetylcysteine 600 MG CAP 1200 MG PO ×2 (09:58→19:34)
[2022-10-21] MEDS: Senna TAB 1 TAB PO (09:59)
[2022-10-21] MEDS: Lisinopril 10 MG TAB PO (09:59)
[2022-10-21] MEDS: Metoprolol 12.5 MG TAB PO ×2 (09:59→19:34)
[2022-10-21] MEDS: diazePAM 2 MG TAB PO ×4 (09:59→19:33)
[2022-10-21] MEDS: amLODIPine 2.5 MG TAB PO (09:59)
[2022-10-21] MEDS: Acetaminophen 325 MG TAB 650 MG PO ×3 (09:59→19:33)
[2022-10-21] MEDS: Folic Acid 1 MG TAB PO (10:00)
[2022-10-21] MEDS: Collagenase 30 GM TUBE TP (10:00)
[2022-10-21] MEDS: Docusate Sodium 100 MG CAP PO (10:00)
[2022-10-21] MEDS: Nystatin POWDER 15 GM JAR TP ×3 (10:00→21:35)
[2022-10-21] MEDS: fentaNYL 100 MCG PATCH TD (12:34)
[2022-10-21] MEDS: HYDROmorphone 2 MG TAB PO ×3 (13:14→22:34)
[2022-10-21 15:15] VITALS: BP 160/74; PULSE 66; RESP 20; TEMP 37.4; O2SAT 96
--- NOTE | 2022-10-21 15:19 | PCPN_ITS ---
Date of service: 10/21/22 Time of Service: 15:19 Assessment and Plan Assessment and plan (1) Closed fracture of left distal femur: Status: Acute Assessment and plan: Missy is a very pleasant 67 year old female with a past medical Hx significant for Myesthenia Gravis, syrinx of the spinal cord, who is wheelchair bound at baseline and has had several falls at home. Unfortunately, she had a fall while transferring at home and sustained a left distal femur fracture on 09/25/22. She is currently about 4 weeks post Fx. She is being treated nonoperatively. She was seen at [facility] for Palliative continuation of care. She reports that her pain is well controlled and is less overall. She has been getting OOB with PT using STEDY lift. Per ortho: May start knee range of motion after 10/23/2022 and weightbearing around 11/06/22-11/20/22. Her plan is to return home when able. She lives at [facility] in an apartment. She states she will need a new WC- discussed with CM. Also discussed possibility of applying for long-term medicaid- to follow up. She has previously established that she is a DNR/DNI, she has a COLST on file. Palliative will follow as needed and after discharge. Subjective Subjective Interval history since last seen: Missy was seen for follow up palliative care. She reports that her pain is under better control. She feels the fx is healing because the pain is less overall. She is getting out of bed with PT, they are using STEDY lift for transfers. She reports that she was constipated but now is having 2-3 loose stools per day. She needs assistance with cleaning up after BM. She requested that her bowel regimen be changed to PRN. She states she will ask for bowel medications as needed. She is eating and drinking well. Her appetite is good. She likes the food at the hospital. She is sleeping well at night. She takes her home Ambien dose. She states she needs new wheelchair. The brakes do not work on her WC at home which is why she believes she fell. Will make sure CM is aware to help facilitate. She reports that her spirits are good overall. She occasionally feels like she could cry, she wants to go home. She denies suicidal thoughts. She called and spoke to her sister in law. She is not close to her family and states she is happy she does not have to interact with her family often. Exam Narrative Exam Narrative: General: very pleasant, middle aged female, sitting up in the recliner with BLE elevated. She is awake and alert, talkative, engages in conversation. HEENT: normocephalic, atraumatic, EOMI, mmm, missing several teeth. Neck: supple, no JVD. Respiratory: respirations appear even and unlabored, Extremities: contractures to hands, no edema to BLEs, legs no loner sensitive to light touch. Objective Last Vital Signs Temp 37.4 C 10/21/22 15:15 Pulse 66 10/21/22 15:15 Resp 20 10/21/22 15:15 BP 160/74 H 10/21/22 15:15 Pulse Ox 96 10/21/22 15:15
--- NOTE | 2022-10-21 17:29 | PTTR_ITS ---
Date of service: 10/21/22 Time of Service: 15:29 PT Notes Visit Reasons: Femur FX SWING BED LEVEL 1 Inpatient Physical Therapy Treatment Note Date: 10/19/2022 Precautions: Paraparetic from previous syrinx of spinal cord starting at C3 and extending to T11.? Wheelchair-bound.??STEDY lift only to ensure better WB compliance on L LE. Per Dr. Up's progress note on 10/06/2022:? May start knee range of motion after 10/23/2022 and weight bearing around 11/06/22-11/20/22.? NWB on the L LE with AD until 11/05/2022.? Per Dr. Up's note on 09/26/2022: While patient is resting in bed and not repositioning or moving, knee immobilizer should be opened up or at least loosened to reduce pressure on skin and chance of skin breakdown.? Knee immobilizer should be relatively snug during repositioning and while out of bed.? Maintain knee straight in full extension for 4 weeks.? Plan on non-weightbearing left lower extremity about 6-8 weeks.?? Subjective:? Getting concerned about her bowel movement pattern, feels guilty about having somebody clean her up each time she has a diarrhea episode. Objective: General inspection:? Supine in bed.? Brar catheter in place.? ? 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 KI loosely placed but L knee in full extension in bed, ? Flexible plantarflexion contracture in B sides noted. Mental Status: Alert and oriented as to person and place.? Some mental lapses noted throughout session,? question short-term memory loss.? Bed Mobility/Transfers: Supine to sit:?minimal assist to B legs, KI on L LE Stand to sit:?stand by assist with STEDY,? KI on L LE.? Appears to be putting minimal weight in L LE despite maximal cueing given Bed to chair:?Minimal assist of 2 with atient putting undue weight on the L LE during this activity, unable to follow instructions to lean to the R to off load L LE. Unable to use B UE fully to push down on walker handle for support.? Chair to bed: Needed minimal assist to stand up from high chair Sit to supine: minimal assist to B LE Gait:? Unable, patient is wheelchair-bound. Balance: Static Sitting: Fair Dynamic Sitting: Poor Static Standing: Poor Dynamic Standing: Unable Neuro re-ed: 1) Trunk mobilization combined with UE strengthening while on chair working on flexion/extension x 10 using B hands to pull on front edge of armrests for support 2) Trunk mobilization combined with UE strengthening? while on gregorio working on lateral flexion to R and L x 10 using B forearms on the armrests for support Thera Ex: 1) Resisted hip and knee extension x 5 using manual resistance from PT while reclined in chair 2) Active ankle DF to about 5 degrees from a plantarflexed position x 10 3) GPS to R and L gastrocnemius muscles x 5 ASSESSMENT: Developing plantarflexion contracture seen, will require positioning regimen to minimize PF ctx progression. Increasing tone in L LE appreciated. Remains not fully compliant with weight bearing precaution even with use of STEDY lift.? Patient now given a higher chair to facilitate ease of transfer while ensuring maximal L knee extension. Per Dr. Up,? patient may proceed with knee range of motion after 10/23/2022 and weight bearing around 11/06/22-11/20/22.? Will clarify amount of WB orthopod would like as the date approaches. Patient has had quite the ordeal with bed mobility progression in the past couple of weeks due to WB precaution, pre-existing paraparesis,? myasthenia gravis, and behavioral/anxiety issues which necessitated use of direct bed-chair transfer using forward-backward technique as patient became so anxious about use of slide board. DISCHARGE RECOMMENDATIONS: [] ? Home with no services [] [] ? Home with services [] [] ? Home with outpatient PT [] [X] ? SNF for continued rehabilitation.? Patient will benefit from snf facility placement for continued skilled physical therapy services in order to progress mobility level, strength, and balance in preparation for a sa fe discharge to home. [] ? Insulating Machine Operator Care [] [X] ? SNF versus LTC based on ability to participate and progress?[] []??SNF vs.? PT based on progress towards goals TREATMENT CODE/TIME: 08309 x 36 minutes beginning at 13:05 PM and 15:29 PM.
[2022-10-21] MEDS: Lidocaine 5% Patch 1 PATCH TP (21:35)
[2022-10-21] MEDS: Zolpidem 5 MG TAB 10 MG PO (21:36)
[2022-10-22] MEDS: Ondansetron O.D.T. 4 MG TABEF PO (00:36)
[2022-10-22] MEDS: HYDROmorphone 2 MG TAB PO ×3 (02:02→20:55)
[2022-10-22 07:15] VITALS: BP 103/66; PULSE 85; RESP 16; TEMP 36.4; O2SAT 96
[2022-10-22] MEDS: amLODIPine 2.5 MG TAB PO (07:59)
[2022-10-22] MEDS: Pantoprazole 40 MG TABCR PO (07:59)
[2022-10-22] MEDS: Gabapentin 300 MG CAP PO ×2 (07:59→20:55)
[2022-10-22] MEDS: Folic Acid 1 MG TAB PO (07:59)
[2022-10-22] MEDS: Acetylcysteine 600 MG CAP 1200 MG PO ×2 (07:59→20:54)
[2022-10-22] MEDS: Metoprolol 12.5 MG TAB PO ×2 (07:59→20:54)
[2022-10-22] MEDS: Lisinopril 10 MG TAB PO (08:00)
[2022-10-22] MEDS: Acetaminophen 325 MG TAB 650 MG PO ×4 (08:00→20:54)
[2022-10-22] MEDS: diazePAM 2 MG TAB PO ×4 (08:00→20:55)
[2022-10-22] MEDS: Collagenase 30 GM TUBE TP (08:00)
[2022-10-22] MEDS: Enoxaparin 40 MG/0.4 ML SYR SC (08:02)
[2022-10-22] MEDS: Nystatin POWDER 15 GM JAR TP ×3 (08:04→20:54)
[2022-10-22] MEDS: Lidocaine Patch Removal 1 EACH TP (09:34)
--- NOTE | 2022-10-22 17:09 | PT.INTREAT ---
Date of service: 10/22/22 Time of Service: 11:34 PT Notes Visit Reasons: Femur FX SWING BED LEVEL 1 Inpatient Physical Therapy Treatment Note Date: 10/22/2022 Precautions: Paraparetic from previous syrinx of spinal cord starting at C3 and extending to T11.? Wheelchair-bound.??STEDY lift only to ensure better WB compliance on L LE. Per Dr. Up's progress note on 10/06/2022:? May start knee range of motion after 10/23/2022 and weight bearing around 11/06/22-11/20/22.? NWB on the L LE with AD until 11/05/2022.? Per Dr. Up's note on 09/26/2022: While patient is resting in bed and not repositioning or moving, knee immobilizer should be opened up or at least loosened to reduce pressure on skin and chance of skin breakdown.? Knee immobilizer should be relatively snug during repositioning and while out of bed.? Maintain knee straight in full extension for 4 weeks.? Plan on non-weightbearing left lower extremity about 6-8 weeks.?? Subjective:? Happy to have her friend pay her a visit this morning. Objective: General inspection:? Supine in bed.? Brar catheter in place.? ?Bed adam under her. BENJI Baxter assisted with pericare and did bed adam removal. 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 KI loosely placed but L knee in full extension in bed, ? Flexible plantarflexion contracture in B sides noted. Mental Status: Alert and oriented as to person and place.? Some mental lapses noted throughout session,? question short-term memory loss.? Bed Mobility/Transfers: Supine to sit:?stand by assist, KI on L LE, occasional assist to L LE given Stand to sit:?Moderate assist with STEDY lift,? KI on L LE.? Now more able to offload L LE with cue to lean to the R Bed to chair:?Minimal assist of 1 STEDY lift, moderate cueing to lean on R to offload L LE Chair to bed:?Minimal assist of 1 STEDY lift, moderate cueing to lean on R to offload L LE Sit to supine:?minimal assist to B LE Gait:? Unable, patient is wheelchair-bound. Balance: Static Sitting: Fair Dynamic Sitting: Poor Static Standing: Poor Dynamic Standing: Unable Neuro re-ed: 1) Trunk mobilization combined with UE strengthening while on chair working on flexion/extension x 10 using B hands to pull on front edge of armrests for support 2) Trunk mobilization combined with UE strengthening? while on gregorio working on lateral flexion to R and L x 10 using B forearms on the armrests for support Thera Ex: 1) Resisted hip and knee extension x 5 using manual resistance from PT while reclined in chair 2) Active ankle DF to about 5 degrees from a plantarflexed position x 10 3) GPS to R and L gastrocnemius muscles x 5 ASSESSMENT: Improving ability to push onto bed and elevate pelvis to scoot forward and sit down while maintaining trunk extension improving. However there is increasing spasticity in B LE noted. Showing some signs of mild confusion/short term memory loss but is able to follow single/double step commands. Developing plantarflexion contracture seen,? will require positioning regimen to minimize PF ctx progression.? Requires maximal cueing to comply with weight bearing precaution even with use of STEDY lift.? Patient now given a higher chair to facilitate ease of transfer while ensuring maximal L knee extension.? Needs encouragement to consistently comply with room exercises. Per Dr. Up,? patient may proceed with knee range of motion after 10/23/2022 and weight bearing around 11/06/22-11/20/22.? Will clarify amount of WB orthopod would like as the date approaches. Patient has had quite the ordeal with bed mobility progression in the past couple of weeks due to WB precaution, pre-existing paraparesis,? myasthenia gravis, and behavioral/anxiety issues which necessitated use of direct bed-chair transfer using forward-backward technique as patient became so anxious about use of slide board. Positioning recommendations in bed: Ensure dorsiflexion to neutral in B ankles by placing folded pillow(s) while in bed. Use blue heels up device placed on blue chair to push B feet into dorsiflexion while seated on bedside recliner. DISCHARGE RECOMMENDATIONS: [] ? Home with no services [] [] ? Home with services [] [] ? Home with outpatient PT [] [X] ? SNF for continued rehabilitation.? Patient will benefit from [facility] for continued skilled physical therapy services in order to progress mobility level, strength, and balance in preparation for a safe discharge to home. [] ? [facility] [] [X] ? SNF versus LTC based on ability to participate and progress?[] []??SNF vs.? PT based on progress towards goals TREATMENT CODE/TIME: 38058 x 24 minutes beginning at 11:34 AM.
[2022-10-22] MEDS: Zolpidem 5 MG TAB 10 MG PO (20:54)
[2022-10-22] MEDS: Lidocaine 5% Patch 1 PATCH TP (20:55)
[2022-10-22] MEDS: Ketorolac 10 MG TAB PO (22:29)
[2022-10-23 07:55] VITALS: BP 100/62; PULSE 81; RESP 15; TEMP 36.4; O2SAT 94
[2022-10-23] MEDS: Enoxaparin 40 MG/0.4 ML SYR SC (08:07)
[2022-10-23] MEDS: Acetylcysteine 600 MG CAP 1200 MG PO ×2 (08:07→19:37)
[2022-10-23] MEDS: Pantoprazole 40 MG TABCR PO (08:08)
[2022-10-23] MEDS: Lisinopril 10 MG TAB PO (08:08)
[2022-10-23] MEDS: Folic Acid 1 MG TAB PO (08:08)
[2022-10-23] MEDS: amLODIPine 2.5 MG TAB PO (08:08)
[2022-10-23] MEDS: Metoprolol 12.5 MG TAB PO (08:09)
[2022-10-23] MEDS: Acetaminophen 325 MG TAB 650 MG PO ×4 (08:09→19:37)
[2022-10-23] MEDS: Gabapentin 300 MG CAP PO ×2 (08:09→19:37)
[2022-10-23] MEDS: Nystatin POWDER 15 GM JAR TP (08:10)
[2022-10-23] MEDS: Collagenase 30 GM TUBE TP (08:10)
[2022-10-23] MEDS: diazePAM 2 MG TAB PO ×4 (08:10→19:37)
[2022-10-23] MEDS: Ondansetron O.D.T. 4 MG TABEF PO (10:00)
[2022-10-23] MEDS: Lidocaine Patch Removal 1 EACH TP (10:05)
[2022-10-23] MEDS: Mylanta Suspension 30 ML CUP PO (11:07)
--- NOTE | 2022-10-23 11:44 | PTTR_ITS ---
Date of service: 10/23/22 Time of Service: 09:20 PT Notes Visit Reasons: Femur FX SWING BED LEVEL 1 Inpatient Physical Therapy Treatment Note [facility] Date: 10/23/2022 PRECAUTIONS: Paraparetic from previous syrinx of spinal cord starting at C3 and extending to T11.? Wheelchair-bound.??STEDY lift only to ensure better WB compliance on L LE. Per Dr. Up's progress note on 10/06/2022:? May start knee range of motion after 10/23/2022 and weight bearing around 11/06/22-11/20/22.? NWB on the L LE with AD until 11/05/2022.? Per Dr. Up's note on 09/26/2022: While patient is resting in bed and not repositioning or moving, knee immobilizer should be opened up or at least loosened to reduce pressure on skin and chance of skin breakdown.? Knee immobilizer should be relatively snug during repositioning and while out of bed.? Maintain knee straight in full extension for 4 weeks.? Plan on non-weightbearing left lower extremity about 6-8 weeks.?? SUBJECTIVE: Stated she is good with doing her bed/ recliner exercises today. Gotten up with nursing to chair earlier. Sitting in recliner with knee immobil izer loosened. OBJECTIVE: PAIN: No complaints of pain offered to me. THEREX: Knee immobilizer positioned prior to performance of ther exercises in recliner. Performed active ankle dorsiflexion x10 reps, gentle soft tissue stretching of right calf x 5 reps, glut sets x 10 reps, heel slides on right x 10 reps, right hip IR/ER x 10 reps, 2# resisted bicep curls x 30 reps, 2# resisted punch ups x 10 reps, and 2# resisted punch outs x 10 reps. ASSESSMENT: Tolerated ther exercises well with good effort given. Indicated she has not been doing her bed exercises much due to being too tired after performing transfer to chair. PLAN: Continue with 6x per week PT services, is to begin ROM 0-[address] Up's orders after today. TREATMENT CODE/TIME: [id number], 9:20 to 9:38 (18')
[2022-10-23] MEDS: HYDROmorphone 2 MG TAB PO ×3 (13:12→21:02)
[2022-10-23] MEDS: Phenazopyridine 200 MG TAB PO (13:31)
[2022-10-23 13:47] LABS: Bilirubin Negative (Negative); Blood Moderate (Negative); Clarity Clear (Clear); Glucose Negative (Negative); Ketones Negative (Negative); Leukocyte Esterase Trace (Negative); Nitrite Negative (Negative); Urobilinogen 0.2 mg/dL (Up to 0.2)
[2022-10-23 14:01] LABS: Bacteria Few HPF (Negative); C & S Indicated? Yes; Casts Negative LPF (Negative); Crystals Negative HPF (Negative); Epithelial Cells Rare HPF (Negative); Mucus Moderate (Negative)
[2022-10-23] MEDS: Zolpidem 5 MG TAB 10 MG PO (21:02)
[2022-10-23] MEDS: Lidocaine 5% Patch 1 PATCH TP (21:03)
[2022-10-24 07:29] VITALS: BP 103/67; PULSE 90; RESP 16; TEMP 36.8; O2SAT 93
[2022-10-24] MEDS: Metoprolol 12.5 MG TAB PO ×2 (08:26→20:48)
[2022-10-24] MEDS: Lisinopril 10 MG TAB PO (08:26)
[2022-10-24] MEDS: Acetaminophen 325 MG TAB 650 MG PO ×4 (08:26→20:46)
[2022-10-24] MEDS: diazePAM 2 MG TAB PO ×4 (08:26→20:47)
[2022-10-24] MEDS: Enoxaparin 40 MG/0.4 ML SYR SC (08:27)
[2022-10-24] MEDS: Acetylcysteine 600 MG CAP 1200 MG PO ×2 (08:27→20:47)
[2022-10-24] MEDS: Gabapentin 300 MG CAP PO ×2 (08:27→20:47)
[2022-10-24] MEDS: Nystatin POWDER 15 GM JAR TP ×3 (08:27→20:48)
[2022-10-24] MEDS: amLODIPine 2.5 MG TAB PO (08:27)
[2022-10-24] MEDS: Folic Acid 1 MG TAB PO (08:27)
[2022-10-24] MEDS: Pantoprazole 40 MG TABCR PO (08:27)
[2022-10-24] MEDS: Collagenase 30 GM TUBE TP (08:28)
[2022-10-24] MEDS: Lidocaine Patch Removal 1 EACH TP (11:41)
[2022-10-24] MEDS: fentaNYL 100 MCG PATCH TD (12:09)
[2022-10-24] MEDS: HYDROmorphone 2 MG TAB PO ×3 (12:13→20:48)
[2022-10-24 20:43] VITALS: BP 107/68; PULSE 75
[2022-10-24] MEDS: Zolpidem 5 MG TAB 10 MG PO (20:52)
[2022-10-24] MEDS: Lidocaine 5% Patch 1 PATCH TP (20:55)
[2022-10-24] MEDS: Ketorolac 10 MG TAB PO (23:24)
[2022-10-25] MEDS: Pantoprazole 40 MG TABCR PO (07:12)
[2022-10-25 07:16] VITALS: BP 108/70; PULSE 74; RESP 16; TEMP 36.4; O2SAT 97
[2022-10-25] MEDS: diazePAM 2 MG TAB PO ×4 (08:03→20:31)
[2022-10-25] MEDS: Gabapentin 300 MG CAP PO ×2 (08:03→20:30)
[2022-10-25] MEDS: Acetylcysteine 600 MG CAP 1200 MG PO ×2 (08:04→20:28)
[2022-10-25] MEDS: Metoprolol 12.5 MG TAB PO ×2 (08:04→20:29)
[2022-10-25] MEDS: Folic Acid 1 MG TAB PO (08:04)
[2022-10-25] MEDS: amLODIPine 2.5 MG TAB PO (08:04)
[2022-10-25] MEDS: Acetaminophen 325 MG TAB 650 MG PO ×4 (08:04→20:32)
[2022-10-25] MEDS: Lisinopril 10 MG TAB PO (08:06)
[2022-10-25] MEDS: Nystatin POWDER 15 GM JAR TP ×2 (08:06→20:34)
[2022-10-25] MEDS: Collagenase 30 GM TUBE TP (08:07)
[2022-10-25] MEDS: Enoxaparin 40 MG/0.4 ML SYR SC (08:15)
[2022-10-25] MEDS: HYDROmorphone 2 MG TAB PO ×3 (10:16→20:30)
[2022-10-25] MEDS: Lidocaine Patch Removal 1 EACH TP (10:18)
--- NOTE | 2022-10-25 18:08 | PGE_ITS ---
Date of Service Date of service: 10/25/22 Time of Service: 18:09 Assessment and Plan Assessment and plan (1) Closed fracture of left distal femur: Status: Acute Assessment and plan: 67 year old female with Left intra-articular minimally displaced distal femur fx after a fall at assisted living facility where she lives Nonoperative management. Maintain Left knee immobilizer: While patient is resting in bed and not repositioning or moving, knee immobilizer should be opened up or at least loosened to reduce pressure on skin and chance of skin breakdown. Knee immobilizer should be relatively snug during repositioning and while out of bed. Non-weight bearing left lower extremity about 6-8 weeks. Replace soft roll padding and/or Elvis bandage as needed to protect skin from knee immobilizer. Follow-up with trauma pharmacy customer care specialist Dr. Alok Byrd at [facility] Doing ROM. May start weightbearing around 11/06/22-11/20/22.? Next x-rays ordered for 11/08/2022 per ortho (2) Hypertension: Status: Chronic Assessment and plan: blood pressures improved with medication reductions continue to monitor blood pressure and adjust meds as needed. (3) Myasthenia gravis: Status: Chronic Assessment and plan: Stable and at baseline Continue outpatient medical therapy (4) Spinal stenosis: Assessment and plan: With chronic pain - Physical therapy (5) GERD (gastroesophageal reflux disease): Status: Chronic Assessment and plan: Continue PPI. (6) Neurogenic bladder: Status: Chronic Assessment and plan: With history of frequent UTIs, urinalysis done - negative - suprapubic catheter changed (7) Pain: Status: Acute Assessment and plan: Continue Fentanyl patch 100 mcg change every 72 Dilaudid oral PRN apap scheduled Spasm - Flexaril 10 mg daily and @ HS (8) Constipation, chronic: Status: Chronic Assessment and plan: continue bowel regimen and prn relistor as needed (9) DVT prophylaxis: Status: Acute Assessment and plan: Enoxaparin 40 mg sc (10) Discharge planning issues: Status: Acute Assessment and plan: plan for rehab is 6-8 weeks with no surgical intervention, this is [facility] (admitted 09/26/2022) Case management is following for discharge planning Ortho following May start weightbearing around 11/06/22-11/20/22.? Next x-rays ordered for 11/08/2022. Discussed with Dr Moran Subjective Subjective Patient reports: feels better, tolerating a regular diet and afebrile; denies flatus, diarrhea, vomiting or shortness of breath Interval history since last seen: Missy reports increased spasms in both her legs today. She is an established patient of Dr Ballesteros and has in the past been on Flexaril with good results. Exam Const General: cooperative and no acute distress Orientation: alert, awake and oriented x3 HENMT Head: normal to inspection Face and sinus: normal facial exam Eyes General: appearance normal, both eyes and all related structures Pupils: PERRL EOM: EOM intact bilaterally Neck Neck: normal visual inspection and No submandibular swelling Lymphatic: no lymphadenopathy noted Chest Chest: normal inspection of the chest and no tenderness Resp Effort & Inspection: normal respiratory effort and able to speak in complete sentences Auscultation: clear to auscultation bilaterally Cardio Rate: regular rate Rhythm: regular rhythm GI Inspection: normal to inspection Palpation: soft, not firm, not rigid and nontender Auscultation: normal bowel sounds Back/Spine/Pelvis Thoracic/Lumbar Spine: thoracic and lumbar spine normal to inspection Pelvis: no pain with anterior-posterior compression Skin General skin exam: no rashes or lesions noted Neuro General: patient alert, patient awake and patient oriented x3 Cognition: normal cognition Speech: speech normal Motor: muscle tone normal throughout Sensory Exam: no sensory deficits noted Extrem General: capillary refill normal Right upper extremity: normal to inspection Left upper extremity: normal to inspection Right lower extremity: normal to inspection Left lower extremity: normal to inspection (knee immobilizer in place) and normal capillary refill Psych Appearance: grossly normal Mental Status: mental status grossly normal Speech and Movement: speech and movement normal Affect: normal affect Objective Last Vital Signs Temp 36.4 C L 10/25/22 07:16 Pulse 74 10/25/22 07:16 Resp 16 10/25/22 07:16 BP 108/70 10/25/22 07:16 Pulse Ox 97 10/25/22 07:16 Time Spent with Patient Time Spent with Patient: 25-34 minutes Time was spent: preparing to see the patient(eg.review tests), obtaining and/or reviewing separately otained hiistory, ordering medications,tests, procedures, referring, communicating with other health progressive care nurse, counseling the patient and care coordination
--- NOTE | 2022-10-25 18:43 | INPN_ITS ---
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 wheelchair-bound.? STEDY lift only to ensure WB compliance on L LE. Per Dr. Up's progress note on 10/06/2022:? 1) May start knee range of motion after 10/23/2022 and weight bearing around 11/06/22-11/20/22.? 2) NWB on the L LE with AD until 11/05/2022.? Per Dr. Up's note on 09/26/2022: 1) Keep L knee in extension using knee immobilizer when OOB, NO pillow under knee at any time until 10/24/2022. Subjective:? Missy reports 7/10 pain in the L LE at rest but is agreebale to bed level exercises.? Initially reported 7/10 pain in the same area at rest in bed early this morning. Objective: General inspection:? Supine in bed.? Brar catheter in place.? ? 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 KI not in place,? pillow placed under knee.? Flexible plantarflexion contracture in B sides noted. Mental Status: Alert and oriented as to person and place.? Some mental lapses noted throughout session,? question short-term memory loss.? Was anxious duirn f ROM: Right Upper Extremity: ? Shoulder Flexion WFL. Shoulder abduction WFL. Elbow flexion WFL. Wrist flexion WFL. Functional opening and closing of hand limited Left Upper Extremity:? Shoulder Flexion WFL. Shoulder abduction WFL. Elbow flexion WFL. Wrist flexion WFL. Awkard opening and closing of hand WFL. Right Lower Extremity: Hip flexion allows up to 60 degrees. Hip abduction 25 degrees. Knee flexion up to 90 degrees passively. Ankle dorsiflexion -45. Ankle plantarflexion contracture to about 45 degrees. Left Lower Extremity: In supine,? patient is able to do a assisted straight leg raise with L KI on to about 45 degrees.? Hip allowed up to 90 degrees passively during supine to sit .? Knee NT.? Active ankle DF to about 5 degees only from a fully platarflexed position. Strength: Right Upper Extremity: Shoulder flexors 4/5. Shoulder abductors 4/5. Elbow flexors 4-/5. Elbow extensors 4/5. Textiles Printer weak but functional Left Upper Extremity: Shoulder flexors 4-/5. Shoulder abductors 4-/5. Elbow flexors 3+/5. Elbow extensors 4-/5. Textiles Printer weak ? functional Right Lower Extremity: Hip flexors 3-/5. Hip abductors 2-/5. Knee flexors 3-/5. Knee extensors 3-/5. Ankle dorsiflexors 1/5. Ankle plantarflexors 2-/5. Left Lower Extremity: Hip NT.? Knee NT. Ankle 1/5. Sensation:? Intact as to pain,? impaired as to light touch in B LE Bed Mobility/Transfers: Supine to sit:?stand by assist, KI on L LE Stand to sit:?minimal assist x 2, KI on L LE Bed to chair:?moderate assist of 2 and minimal assist of a third person for WB compliance.? Patient putting undue weight on the L LE during this activity, unable to follow instructions to lean to the R to off load L LE, however reports a reduction in pain to 4/10.? Unable to use B UE fully to puish down on walker handle for support.? Got mildly anxious but was able to complete activity with encouragement Chair to bed:?STEDY lift with assist of 2 to ensure that L knee is maintained in extension at all times.? Unable to bring lift close enough due to this precaution so patient requires moderate assist to stand up from chair.? Still unable to maintain NWB precaution in the L LE due to pre-existing paraparesis and MG. Gait:? Unable, patient is wheelchair-bound. Balance: Static Sitting: Fair Dynamic Sitting: Poor Static Standing: Poor Dynamic Standing: Unablle Thera Ex: 1) Active ankle DF to about 5 degrees from a plantarflexed position x 10 2) Quads sets x10 3) Heel slides x 10 on R/L able to bend at the knee about 10 degrees on L, 5 degrees on R 4) Pull ups using overhead trapeze, bed height brought down and HOB angle at about 30 degrees, x 15 reps 5) Quads sets x 10 6) Chest expansion exercises with shoulder flexion/ext and DBE x 5 6) Chest expansion exercises with shoulder hor abd/add and DBE x 5 ASSESSMENT: Initiated active assistive knee range of motionas of today per orthopd order. Improving ability to push onto bed and elevate pelvis to scoot forward and sit down while maintaining trunk extension improving.? However, there is increasing spasticity in B LE noted, Dr. Moran updated.? Showing some signs of mild confusion/short term memory loss but is able to follow single/double step commands.? Developing plantarflexion contracture seen,? will require positioning regimen to minimize PF ctx progression.? Requires maximal cueing to comply with weight bearing precaution even with use of STEDY lift.? Patient now given a higher chair to facilitate ease of transfer while ensuring maximal L knee extension.? Needs encouragement to consistently comply with room exercises. Per Dr. Up,? patient may proceed with knee range of motion after 10/23/2022 and weight bearing around 11/06/22-11/20/22.? Will clarify amount of WB orthopod would like as the date approaches. Patient has had quite the ordeal with bed mobility progression in the past couple of weeks due to WB precaution, pre- existing paraparesis,? myasthenia gravis, and behavioral/anxiety issues which necessitated use of direct bed-chair transfer using forward-backward technique as patient became so anxious about use of slide board. Positioning recommendations in bed: Ensure dorsiflexion to neutral in B ankles by placing folded pillow(s) while in bed.? Use blue heels up device placed on blue chair to push B feet into dorsiflexion while seated on bedside recliner. Patient presents with clinical signs and symptoms consistent with current/admitting diagnoses that have resulted to mobility limitations, gait instability, generalized weakness, and overall ADL decline as demonstrated by the following impairment level findings: 1.? Decreased strength to B UE/LE? major muscle groups 2.? Impaired sitting balance but imporved from the last progress note done 3.? WB precuation: NWB L LE until 11/05/2022 4.? Limitation of joint range of motion in L hand, B UE joints 5.? Pain in L UE 6.? Intermittent spasms in B LE with L<<R (resolved) 7.? Beginning flexible plantarflexion contracture in B ankles Impairments are contributing to the following functional limitations: 1.? Decline in bed mobility skills 2.? Decline in transfer skills 3.? Wheelchair-bound 4.? Increased completion time for mobility ADL performance 5.? Increased risk for falls 6.? Increased risk for skin breakdown/infection Goals: Goals X1 week 1. Supine-Sit? assist of 1.?MET.? Progress to modified independent using B UE as of 10/18/2022. 2. Sit-Supine? assist of 1,?NOT MET. CONTINUE. 3. Sit-squat assist of 2 or less with set up assist,??NOT MET, CONTINUE 5. Wheelchair propulsion if left leg supported?MET, patient is independent with propulsion with B LE set up since 3 weeks ago 6. Slide board transfer with A of L LE, or leg strap, bed ,.WC?DISCONTINUE.? Patient gets increasingly anxious about use slide board transfer. 7.? Patient will maintain static standing with NWB in L LE for about 5 minutes inside parallel bars or with use of FWW NOT MET, CONTINUE Plan of Care/Treatment Plan: 1-2x/day, 7 days/week x 2 weeks. Plan of care has been reviewed with the TELEPHONE DIRECTORY DELIVERER providing the service under Physical Therapy direction. Initiate Physical Therapy intervention for strengthening, bed mobility, transfers, gait,? balance training, use of assistive device for transfers into w/c. DISCHARGE RECOMMENDATIONS: [] ? Home with no services [] [] ? Home with services [] [] ? Home with outpatient PT [] [X] ? SNF for continued rehabilitation.? Patient will benefit from correction facility placement for continued skilled physical therapy services in order to progress mobility level, strength, and balance in preparation for a safe discharge to home. [] ? Network Contractor Care [] [X] ? SNF versus LTC based on ability to participate and progress?[] []??SNF vs.? PT based on progress towards goals TREATMENT CODE/TIME: 37269 x 27 minutes,? 39002 x 13 minutes beginning at 15:22 PM. Thank you for the opportunity to participate in the care of this patient. Ching Viveros PT, DPT, CLT [facility] [place], [place]
[2022-10-25] MEDS: Zolpidem 5 MG TAB 10 MG PO (20:29)
[2022-10-25] MEDS: Lidocaine 5% Patch 1 PATCH TP (20:33)
[2022-10-25] MEDS: Ketorolac 10 MG TAB PO (22:52)
[2022-10-26] MEDS: HYDROmorphone 2 MG TAB PO ×4 (01:41→21:44)
[2022-10-26 06:49] LABS: Abs Immature Grans 0.01 10^3/uL (0.0-0.06); Absolute Basophil Count 0.04 10^3/uL (0.0-0.2); Absolute Eosinophil Count 0.16 10^3/uL (0.0-0.7); Absolute Lymphocyte Count 1.38 10^3/uL (1.2-3.4); Absolute Monocyte Count 0.54 10^3/uL (0.1-0.8); Absolute Neutrophil Count 2.76 10^3/uL (1.2-6.7); Basophils % 0.8; Eosinophils % 3.3; HCT 37.3 % (36.0-46.0); HGB 11.8 g/dL (11.2-15.7); Immature Grans % 0.2; Lymphocytes % 28.2; MCH 28.7 pg (27.0-33.0); MCHC 31.6 % (32.0-36.0); MCV 91 fL (80-95); Neutrophils % 56.5; Platelet Count 329 10^3/uL (130-400); RBC 4.11 10^6/uL (3.93-5.22); RDW 14.4 % (11.7-14.6); RDW-SD 48.3 fL; WBC 4.89 10^3/uL (4.4-10.8)
[2022-10-26] MEDS: Pantoprazole 40 MG TABCR PO (07:06)
[2022-10-26 07:07] LABS: Anion Gap 7.7 mmol/L (3-11); BUN 26 mg/dL (7-18); CO2 26.3 mmol/L (21.0-32.0); Calcium 9.5 mg/dL (8.5-10.1); Chloride 103 mmol/L (98-107); Estimated GFR 61.75 (mL/min/1.73m2); Glucose 93 mg/dL (74-106); Magnesium 2.2 mg/dL (1.8-2.4); Potassium 4.9 mmol/L (3.5-5.1); Sodium 137 mmol/L (136-145)
[2022-10-26 08:05] VITALS: BP 146/84; PULSE 82; RESP 16; TEMP 36.5; O2SAT 96
[2022-10-26] MEDS: diazePAM 2 MG TAB PO ×4 (08:29→20:26)
[2022-10-26] MEDS: Lisinopril 10 MG TAB PO (08:30)
[2022-10-26] MEDS: Metoprolol 12.5 MG TAB PO ×2 (08:30→20:25)
[2022-10-26] MEDS: Gabapentin 300 MG CAP PO ×2 (08:30→20:25)
[2022-10-26] MEDS: Folic Acid 1 MG TAB PO (08:30)
[2022-10-26] MEDS: Acetaminophen 325 MG TAB 650 MG PO ×4 (08:31→20:26)
[2022-10-26] MEDS: Acetylcysteine 600 MG CAP 1200 MG PO ×2 (08:31→20:26)
[2022-10-26] MEDS: amLODIPine 2.5 MG TAB PO (08:33)
[2022-10-26] MEDS: Enoxaparin 40 MG/0.4 ML SYR SC (08:35)
[2022-10-26] MEDS: Collagenase 30 GM TUBE TP (08:35)
[2022-10-26] MEDS: Nystatin POWDER 15 GM JAR TP ×3 (08:36→20:36)
[2022-10-26] MEDS: Lidocaine Patch Removal 1 EACH TP (09:55)
--- NOTE | 2022-10-26 15:15 | PT.INTREAT ---
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 Wheelchair-bound.? STEDY lift only to ensure WB compliance on L LE. Per Dr. Up's progress note on 10/06/2022:? 1) May start knee range of motion after 10/23/2022 and weight bearing around 11/06/22-11/20/22.? 2) NWB on the L LE with AD until 11/05/2022.? Per Dr. Up's note on 09/26/2022: 1) Keep L knee in extension using knee immobilizer when OOB, NO pillow under knee at any time until 10/24/2022. Subjective:? States that she was not able to sleep well the previous night. Agreeable to doing chair level exercises with PT for this session. Objective: General inspection:? Seated on chair.? Brar catheter in place.? ? 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 KI not in place,? pillow placed under knee.? Flexible plantarflexion contracture in B sides noted. Mental Status: Alert and oriented as to person and place.? Some mental lapses noted throughout session,? question short-term memory loss.? Was anxious duirn f Bed Mobility/Transfers: Supine to sit:?stand by assist, KI on L LE Stand to sit:?minimal assist x 2, KI on L LE Bed to chair:?moderate assist of 2 and minimal assist of a third person for WB compliance.? Patient putting undue weight on the L LE during this activity, unable to follow instructions to lean to the R to off load L LE, however reports a reduction in pain to 4/10.? Unable to use B UE fully to puish down on walker handle for support.? Got mildly anxious but was able to complete activity with encouragement Chair to bed:?STEDY lift with assist of 2 to ensure that L knee is maintained in extension at all times.? Unable to bring lift close enough due to this precaution so patient requires moderate assist to stand up from chair.? Still unable to maintain NWB precaution in the L LE due to pre-existing paraparesis and MG. Gait:? Unable, patient is wheelchair-bound. Balance: Static Sitting: Fair Dynamic Sitting: Poor Static Standing: Poor Dynamic Standing: Unablle Thera Ex: 1) Active ankle DF to about 5 degrees from a plantarflexed position x 10 2) Quads sets x10 3) Heel slides x 10 on R/L able to bend at the knee about 10 degrees on L, 5 degrees on R 4) Punch forward using 1 lb DB 5) Quads sets x 10 6) Chest expansion exercises with shoulder flexion/ext and DBE x 5 7) Elbow flexion using 1 lb DB 8) Chest expansion exercises with shoulder hor abd/add and DBE x 5 9) Punch ups using 1 lb DB ASSESSMENT: Continued with active assistive knee range of motionas of today per orthopd order.??Improving ability to push onto bed and elevate pelvis to scoot forward and sit down while maintaining trunk extension improving.? However, there is increasing spasticity in B LE noted,? Dr. Moran updated.? Showing some signs of mild confusion/short term memory loss but is able to follow single/double step commands.? Developing plantarflexion contracture seen,? will require positioning regimen to minimize PF ctx progression.? Requires maximal cueing to comply with weight bearing precaution even with use of STEDY lift.? Patient now given a higher chair to facilitate ease of transfer while ensuring maximal L knee extension.? Needs encouragement to consistently comply with room exercises. Per Dr. Up,? patient may proceed with knee range of motion after 10/23/2022 and weight bearing around 11/06/22-11/20/22.? Will clarify amount of WB orthopod would like as the date approaches. Patient has had quite the ordeal with bed mobility progression in the past couple of weeks due to WB precaution, pre-existing paraparesis,? myasthenia gravis, and behavioral/anxiety issues which necessitated use of direct bed-chair transfer using forward-backward technique as patient became so anxious about use of slide board. Positioning recommendations in bed: Ensure dorsiflexion to neutral in B ankles by placing folded pillow(s) while in bed.? Use blue heels up device placed on blue chair to push B feet into dorsiflexion while seated on bedside recliner. DISCHARGE RECOMMENDATIONS: [] ? Home with no services [] [] ? Home with services [] [] ? Home with outpatient PT [] [X] ? SNF for continued rehabilitation.? Patient will benefit from [facility] for continued skilled physical therapy services in order to progress mobility level, strength, and balance in preparation for a safe discharge to home. [] ? Traveling Secretary Care [] [X] ? SNF versus LTC based on ability to participate and progress?[] []??SNF vs.? PT based on progress towards goals TREATMENT CODE/TIME: 93554 x 33 minutes beginning at 11:35 AM.
[2022-10-26] MEDS: Lidocaine 5% Patch 1 PATCH TP (20:24)
[2022-10-26] MEDS: Zolpidem 5 MG TAB 10 MG PO (20:26)
[2022-10-26] MEDS: Cyclobenzaprine 10 MG TAB PO (21:45)
[2022-10-27] MEDS: Pantoprazole 40 MG TABCR PO (07:00)
[2022-10-27 07:32] VITALS: BP 96/60; PULSE 87; RESP 17; TEMP 36.4; O2SAT 92
[2022-10-27] MEDS: Acetaminophen 325 MG TAB 650 MG PO ×4 (08:39→20:37)
[2022-10-27] MEDS: Gabapentin 300 MG CAP PO ×2 (08:40→20:37)
[2022-10-27] MEDS: Folic Acid 1 MG TAB PO (08:40)
[2022-10-27] MEDS: Acetylcysteine 600 MG CAP 1200 MG PO ×2 (08:40→20:37)
[2022-10-27] MEDS: Enoxaparin 40 MG/0.4 ML SYR SC (08:41)
[2022-10-27] MEDS: diazePAM 2 MG TAB PO ×4 (08:41→20:38)
[2022-10-27] MEDS: Nystatin POWDER 15 GM JAR TP ×3 (08:42→20:39)
[2022-10-27] MEDS: Collagenase 30 GM TUBE TP (08:42)
[2022-10-27] MEDS: fentaNYL 100 MCG PATCH TD (11:41)
[2022-10-27] MEDS: Lidocaine Patch Removal 1 EACH TP (11:42)
[2022-10-27] MEDS: HYDROmorphone 2 MG TAB PO ×2 (12:58→18:45)
[2022-10-27] MEDS: Metoprolol 12.5 MG TAB PO (20:37)
[2022-10-27 20:52] VITALS: BP 111/73; PULSE 92; RESP 16; TEMP 36.5; O2SAT 96
[2022-10-27] MEDS: Zolpidem 5 MG TAB 10 MG PO (22:20)
[2022-10-27] MEDS: Lidocaine 5% Patch 1 PATCH TP (22:24)
[2022-10-27] MEDS: Cyclobenzaprine 10 MG TAB PO (22:24)
[2022-10-28 06:39] VITALS: BP 100/63; PULSE 78; RESP 16; TEMP 36; O2SAT 92
[2022-10-28] MEDS: Folic Acid 1 MG TAB PO (07:58)
[2022-10-28] MEDS: Pantoprazole 40 MG TABCR PO (07:59)
[2022-10-28] MEDS: amLODIPine 2.5 MG TAB PO (07:59)
[2022-10-28] MEDS: Acetaminophen 325 MG TAB 650 MG PO ×4 (07:59→19:34)
[2022-10-28] MEDS: Metoprolol 12.5 MG TAB PO ×2 (07:59→19:34)
[2022-10-28] MEDS: Lisinopril 10 MG TAB PO (08:00)
[2022-10-28] MEDS: Enoxaparin 40 MG/0.4 ML SYR SC (08:00)
[2022-10-28] MEDS: diazePAM 2 MG TAB PO ×4 (08:00→19:34)
[2022-10-28] MEDS: Gabapentin 300 MG CAP PO ×2 (08:00→19:34)
[2022-10-28] MEDS: Acetylcysteine 600 MG CAP 1200 MG PO ×2 (08:00→19:34)
[2022-10-28] MEDS: Nystatin POWDER 15 GM JAR TP ×3 (08:03→20:33)
[2022-10-28] MEDS: Collagenase 30 GM TUBE TP (08:03)
[2022-10-28 09:38] VITALS: O2SAT 96
[2022-10-28] MEDS: Lidocaine Patch Removal 1 EACH TP (10:55)
--- NOTE | 2022-10-28 12:03 | CMACTNOTE_ITS ---
- If Service Date Differs Date of service: 10/28/22 Time of Service: 12:03 Care Management Activity Note S/O: Missy was sitting up in her chair when CM met with her. She stated that she is doing well, and is happy with her stay at [facility], which as been prolonged due to her non weight bearing status. She stated that she stays busy with her word search puzzle, and always has plenty of food. CM discussed her discharge plan, which is getting closer, as she will be able to bear weight after 11/08/22, per MD. Her discharge options will be to remain in SWB while she works with PT, go to a SNF for skilled short term rehab, or return home with PT, OT. CM will continue to follow. A: Missy is a 67 year old woman admitted on 09/25/22 with a fractured femur. She was transitioned to Swingbed-1 on 10/03/22. P: Missy will remain in SWB1 to continue to work with PT/OT while she is non weight bearing. She will progress toward indpendence with mobility/transfers once she is able to bear weight.
[2022-10-28] MEDS: HYDROmorphone 2 MG TAB PO ×3 (12:47→23:10)
--- NOTE | 2022-10-28 14:49 | CHAPLAIN ---
Missy continues to be pleasant and patient. She has been here for a few weeks and is participating in PT while on swingbed until she can be bear weight on her leg. She lives at the [facility] and likes it there. She has been working on word searches/finds, crossword puzzles and watching tv. She always engages in a conversation and asks how staff is doing.
[2022-10-28 19:40] VITALS: BP 113/87; PULSE 87; RESP 18; TEMP 36; O2SAT 92
[2022-10-28] MEDS: Zolpidem 5 MG TAB 10 MG PO (21:03)
[2022-10-28] MEDS: Lidocaine 5% Patch 1 PATCH TP (21:03)
[2022-10-28] MEDS: Cyclobenzaprine 10 MG TAB PO (21:03)
[2022-10-28] MEDS: Ketorolac 10 MG TAB PO (21:49)
[2022-10-29] MEDS: diazePAM 2 MG TAB PO ×4 (08:10→20:03)
[2022-10-29] MEDS: Gabapentin 300 MG CAP PO ×2 (08:10→20:04)
[2022-10-29] MEDS: Folic Acid 1 MG TAB PO (08:11)
[2022-10-29] MEDS: Acetylcysteine 600 MG CAP 1200 MG PO ×2 (08:11→20:04)
[2022-10-29] MEDS: Pantoprazole 40 MG TABCR PO (08:11)
[2022-10-29] MEDS: amLODIPine 2.5 MG TAB PO (08:11)
[2022-10-29] MEDS: Acetaminophen 325 MG TAB 650 MG PO ×4 (08:11→20:04)
[2022-10-29] MEDS: Enoxaparin 40 MG/0.4 ML SYR SC (08:12)
[2022-10-29] MEDS: Metoprolol 12.5 MG TAB PO ×2 (08:12→20:04)
[2022-10-29] MEDS: Lisinopril 10 MG TAB PO (08:12)
[2022-10-29] MEDS: Nystatin POWDER 15 GM JAR TP ×2 (08:12→15:02)
[2022-10-29 08:13] VITALS: BP 118/73; PULSE 75; RESP 14; TEMP 36.3; O2SAT 93
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
[2022-10-29] MEDS: Collagenase 30 GM TUBE TP (10:37)
[2022-10-29] MEDS: Lidocaine Patch Removal 1 EACH TP (11:36)
--- NOTE | 2022-10-29 13:35 | PT.INTREAT ---
Date of service: 10/29/22 Time of Service: 10:24 PT Notes Visit Reasons: Femur FX SWING BED LEVEL 1 Inpatient Physical Therapy Treatment Note [facility] Date: 10/29/2022 PRECAUTIONS: Activity as tolerated, paraparesis, NWB L SUBJECTIVE: Missy is pleasant and agreeable to participating in PT. She reports improved tolerance to sitting up in chair. OBJECTIVE: PAIN: No c/o pain BED MOBILITY/TRANSFERS: Supine-sit: Min A Sit-stand: Mod A x2 with STEDY Stand-sit: CGA with STEDY Bed-chair: STEDY THEREX: Patient was instructed in a global strengthening and stabilization program, completed in a long-sitting position, to include: Ankle pumps x10 Quad and glute sets x10 Heel slides (R only) x10 (AA) Bicep curls with 1# x10 Shoulder punch ups with 1# x10 Diagonal punch outs with 1# x10 Shoulder flexion with 1# x15 Rows with 1# x10 Modified sit up (using B chair arms) x10 Modified diagonal crunch with 1# x10 each L/R Lateral bends with 1# x5 each L/R ASSESSMENT: Patient continues to demonstrate global weakness, although improved exercise tolerance and ability to complete transfers. She continues to be limited by NWB status. PLAN: Continue with global strengthening, bed mobility and transfer training for improved ability to perform daily functional tasks. TREATMENT CODE/TIME: 23 minutes; 38182 x2 (10:24)
[2022-10-29] MEDS: HYDROmorphone 2 MG TAB PO (20:03)
[2022-10-29 22:00] VITALS: BP 108/68; PULSE 68; RESP 16; TEMP 36.6; O2SAT 98
[2022-10-29] MEDS: Cyclobenzaprine 10 MG TAB PO (22:14)
[2022-10-29] MEDS: Lidocaine 5% Patch 1 PATCH TP (22:14)
[2022-10-29] MEDS: Zolpidem 5 MG TAB 10 MG PO (22:14)
[2022-10-30 08:56] VITALS: BP 100/62; PULSE 76; RESP 16; TEMP 36; O2SAT 93
[2022-10-30] MEDS: Lisinopril 10 MG TAB PO (10:39)
[2022-10-30] MEDS: Pantoprazole 40 MG TABCR PO (10:39)
[2022-10-30] MEDS: Metoprolol 12.5 MG TAB PO ×2 (10:39→20:14)
[2022-10-30] MEDS: Acetaminophen 325 MG TAB 650 MG PO ×4 (10:39→20:15)
[2022-10-30] MEDS: amLODIPine 2.5 MG TAB PO (10:39)
[2022-10-30] MEDS: diazePAM 2 MG TAB PO ×4 (10:40→20:15)
[2022-10-30] MEDS: Folic Acid 1 MG TAB PO (10:40)
[2022-10-30] MEDS: Gabapentin 300 MG CAP PO ×2 (10:40→20:14)
[2022-10-30] MEDS: Acetylcysteine 600 MG CAP 1200 MG PO ×2 (10:40→20:14)
[2022-10-30] MEDS: Nystatin POWDER 15 GM JAR TP (10:41)
[2022-10-30] MEDS: Collagenase 30 GM TUBE TP (10:41)
[2022-10-30] MEDS: Enoxaparin 40 MG/0.4 ML SYR SC (10:41)
[2022-10-30] MEDS: Lidocaine Patch Removal 1 EACH TP (10:43)
[2022-10-30] MEDS: fentaNYL 100 MCG PATCH TD (12:21)
[2022-10-30 20:11] VITALS: BP 125/80; PULSE 86; RESP 18; TEMP 36.2; O2SAT 98
[2022-10-30] MEDS: Zolpidem 5 MG TAB 10 MG PO (20:13)
[2022-10-30] MEDS: HYDROmorphone 2 MG TAB PO (20:13)
[2022-10-30] MEDS: Cyclobenzaprine 10 MG TAB PO (20:15)
[2022-10-30] MEDS: Lidocaine 5% Patch 1 PATCH TP (20:16)
[2022-10-30] MEDS: Ketorolac 10 MG TAB PO (23:49)
[2022-10-31 06:24] VITALS: BP 95/62; PULSE 68; RESP 20; TEMP 36.4; O2SAT 99
[2022-10-31] MEDS: Enoxaparin 40 MG/0.4 ML SYR SC (08:12)
[2022-10-31] MEDS: Collagenase 30 GM TUBE TP (08:12)
[2022-10-31] MEDS: Acetylcysteine 600 MG CAP 1200 MG PO ×2 (08:13→20:18)
[2022-10-31] MEDS: Gabapentin 300 MG CAP PO ×2 (08:13→20:20)
[2022-10-31] MEDS: Nystatin POWDER 15 GM JAR TP ×2 (08:13→20:20)
[2022-10-31] MEDS: Ketorolac 10 MG TAB PO (08:13)
[2022-10-31] MEDS: diazePAM 2 MG TAB PO ×4 (08:14→20:19)
[2022-10-31] MEDS: Pantoprazole 40 MG TABCR PO (08:14)
[2022-10-31] MEDS: Folic Acid 1 MG TAB PO (08:14)
[2022-10-31] MEDS: amLODIPine 2.5 MG TAB PO (08:15)
[2022-10-31] MEDS: Lisinopril 10 MG TAB PO (08:16)
[2022-10-31] MEDS: Acetaminophen 325 MG TAB 650 MG PO ×4 (09:00→20:19)
[2022-10-31] MEDS: Lidocaine Patch Removal 1 EACH TP (10:14)
[2022-10-31] MEDS: Lidocaine 5% Patch 1 PATCH TP (20:17)
[2022-10-31] MEDS: Zolpidem 5 MG TAB 10 MG PO (20:18)
[2022-10-31] MEDS: HYDROmorphone 2 MG TAB PO (20:19)
[2022-10-31] MEDS: Cyclobenzaprine 10 MG TAB PO (20:19)
[2022-10-31] MEDS: Metoprolol 12.5 MG TAB PO (20:19)
[2022-11-01 07:51] VITALS: BP 100/62; PULSE 71; RESP 16; TEMP 36; O2SAT 98
[2022-11-01] MEDS: Acetaminophen 325 MG TAB 650 MG PO ×4 (09:42→19:33)
[2022-11-01] MEDS: Gabapentin 300 MG CAP PO ×2 (09:42→19:33)
[2022-11-01] MEDS: Lisinopril 10 MG TAB PO (09:43)
[2022-11-01] MEDS: Acetylcysteine 600 MG CAP 1200 MG PO ×2 (09:43→19:33)
[2022-11-01] MEDS: diazePAM 2 MG TAB PO ×4 (09:44→19:33)
[2022-11-01] MEDS: Pantoprazole 40 MG TABCR PO (09:44)
[2022-11-01] MEDS: amLODIPine 2.5 MG TAB PO (09:44)
[2022-11-01] MEDS: Metoprolol 12.5 MG TAB PO ×2 (09:44→19:34)
[2022-11-01] MEDS: Nystatin POWDER 15 GM JAR TP ×3 (09:45→19:34)
[2022-11-01] MEDS: Enoxaparin 40 MG/0.4 ML SYR SC (09:45)
[2022-11-01] MEDS: Folic Acid 1 MG TAB PO (09:45)
[2022-11-01] MEDS: Lidocaine Patch Removal 1 EACH TP (10:48)
[2022-11-01] MEDS: Collagenase 30 GM TUBE TP (10:48)
--- NOTE | 2022-11-01 16:53 | INPN_ITS ---
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 wheelchair-bound.? STEDY lift only to ensure WB compliance on L LE. Per Dr. Up's progress note on 10/06/2022:? 1) May start knee range of motion after 10/23/2022 and weight bearing around 11/06/22-11/20/22.? 2) NWB on the L LE with AD until 11/05/2022.? Per Dr. Up's note on 09/26/2022: 1) Keep L knee in extension using knee immobilizer when OOB, no pillow under knee at any time until 10/24/2022. Subjective:? Agreeable to completing bed level exercises and to getting out of bed later this afternoon. Objective: General inspection:? Supine in bed.? Brar catheter in place.? ? 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 KI in place. Flexible plantarflexion contracture in B sides noted. Mental Status: Alert. Needed more cueing at the start of the session, had a challenge following instructions for the exercises. ROM: Right Upper Extremity: ? Shoulder Flexion WFL. Shoulder abduction WFL. Elbow flexion WFL. Wrist flexion WFL. Functional opening and closing of hand limited Left Upper Extremity:? Shoulder Flexion WFL. Shoulder abduction WFL. Elbow flexion WFL. Wrist flexion WFL. Awkard opening and closing of hand WFL. Right Lower Extremity: Hip flexion allows up to 60 degrees. Hip abduction 25 degrees. Knee flexion up to 90 degrees passively. Ankle dorsiflexion -45. Ankle plantarflexion contracture to about 45 degrees. Left Lower Extremity: HIp and knee flexion less than 10 degrees actively with pain reported. Active ankle DF to about 5 degees only from a fully platarflexed position. Strength: Right Upper Extremity: Shoulder flexors 4/5. Shoulder abductors 4/5. Elbow flexors 4-/5. Elbow extensors 4/5. Blood Donor Recruiter Supervisor weak but functional Left Upper Extremity: Shoulder flexors 4-/5. Shoulder abductors 4-/5. Elbow flexors 3+/5. Elbow extensors 4-/5. Blood Donor Recruiter Supervisor weak ? functional Right Lower Extremity: Hip flexors 3-/5. Hip abductors 2-/5. Knee flexors 3-/5. Knee extensors 3-/5. Ankle dorsiflexors 1/5. Ankle plantarflexors 2-/5. Left Lower Extremity: Hip NT.? Knee NT. Ankle 1/5. Sensation:? Intact as to pain,? impaired as to light touch in B LE Bed Mobility/Transfers: Supine to sit:?stand by assist, KI on L LE Stand to sit:?minimal assist, KI on L LE with bed elevated high enough to minimize WB on L LE Bed to chair:?minimal assist using STEDY lift. Patient putting undue weight on the L LE during this activity, unable to follow instructions to lean to the R to off load L LE, however reports a reduction in pain to 4/10.? Unable to use B UE fully to puish down on walker handle for support.? Got mildly anxious but was able to complete activity with encouragement Chair to bed:?STEDY lift with assist of 2 to ensure that L knee is maintained in extension at all times.? Unable to bring lift close enough due to this precaution so patient requires moderate assist to stand up from chair.? Still unable to maintain NWB precaution in the L LE due to pre-existing paraparesis and MG. Gait:? Unable, patient is wheelchair-bound. Balance: Static Sitting: Fair Dynamic Sitting: Poor Static Standing: Poor Dynamic Standing: Unablle Thera Ex: 1) Active ankle DF to about 5 degrees from a plantarflexed position x 10; with pillows placed between feet and the footboard, patient pushes downward x 10 2) Quads sets x10 3) Heel slides x 10 on R/L able to bend at the knee less than 10 degrees on L, 10 degrees on R 4) Pull ups using overhead trapeze,? bed height brought down and HOB angle at about 20 degrees,? x 15 reps 5) Glutes sets x 10 6) B UE punch outs x 10 7) While seated on bedside chair, pull forward/trunk flexion x 10 8) DBE x 3 after 2-3 exercises 9) Sit<>stand while on STEDY with emphasis on leaning towards R LE x 5 with stand by assist ASSESSMENT: Continued with active assistive knee range of motion per orthopd order.?? Improving ability to push onto bed and elevate pelvis to scoot forward and sit down while maintaining trunk extension improving.??Showing some signs of mild confusion/short term memory loss but is able to follow single/double step commands.? Developing plantarflexion contracture,?cotninue with positioning regimen to minimize PF ctx progression.? Per Dr. Up,? patient may proceed with knee range of motion after 10/23/2022 and weight bearing around 11/06/22-11/20/22.? Will clarify amount of WB orthopod would like as the date approaches. Patient has had quite the ordeal with bed mobility progression in the past couple of weeks due to WB precaution, pre- existing paraparesis,? myasthenia gravis, and behavioral/anxiety issues which necessitated use of direct bed-chair transfer using forward-backward technique as patient became so anxious about use of slide board. Positioning recommendations in bed: Ensure dorsiflexion to neutral in B ankles by placing folded pillow(s) while in bed.? Use blue heels up device placed on blue chair to push B feet into dorsiflexion while seated on bedside recliner. Patient presents with clinical signs and symptoms consistent with current/admitting diagnoses that have resulted to mobility limitations, gait instability, generalized weakness, and overall ADL decline as demonstrated by the following impairment level findings: 1.? Decreased strength to B UE/LE? major muscle groups 2.? Impaired sitting balance but imporved from the last progress note done 3.? WB precuation: NWB L LE until 11/05/2022 4.? Limitation of joint range of motion in L hand, B UE joints 5.? Pain in L UE 6.? Intermittent spasms in B LE with L<<R (resolved) 7.? Beginning flexible plantarflexion contracture in B ankles Impairments are contributing to the following functional limitations: 1.? Decline in bed mobility skills 2.? Decline in transfer skills 3.? Wheelchair-bound 4.? Increased completion time for mobility ADL performance 5.? Increased risk for falls 6.? Increased risk for skin breakdown/infection Goals: Goals X1 week 1. Supine-Sit? modified independent.?NOT MET, CONTINUE. 2. Sit-Supine? contact guard assist,?NOT MET. CONTINUE. 3. Sit-squat assist of 2 or less with set up assist,??NOT MET, CONTINUE 4.? Patient will maintain static standing with NWB in L LE for about 5 minutes inside parallel bars or with use of FWW?NOT MET, CONTINUE Plan of Care/Treatment Plan: 1/day, 5 days/week x 2 weeks. Plan of care has been reviewed with the CASE ASSISTANT providing the service under Physical Therapy direction. Initiate Physical Therapy intervention for strengthening, bed mobility, transfers, gait,? balance training, use of assistive device for transfers into w/c. DISCHARGE RECOMMENDATIONS: [] ? Home with no services [] [] ? Home with services [] [] ? Home with outpatient PT [] [X] ? SNF for continued rehabilitation.? Patient will benefit from [facility] facility placement for continued skilled physical therapy services in order to progress mobility level, strength, and balance in preparation for a safe discharge to home. [] ? [employer] [facility] [] [X] ? SNF versus LTC based on ability to participate and progress?[] []??SNF vs.? PT based on progress towards goals TREATMENT CODE/TIME: 61359 x 30 minutes,? 10097 x 16 minutes beginning at 13:12 and 14:01 PM. Thank you for the opportunity to participate in the care of this patient. Ching Viveros PT, DPT, CLT [facility] [place], [place]
--- NOTE | 2022-11-01 19:10 | W.PM.PROGNOT ---
Date of Service Date of service: 11/01/22 Time of Service: 12:00 Assessment and Plan Assessment and plan (1) Closed fracture of left distal femur: Status: Acute Assessment and plan: 67 year old female with Left intra-articular minimally displaced distal femur fx after a fall at assisted living facility where she lives Nonoperative management. Maintain Left knee immobilizer: While patient is resting in bed and not repositioning or moving, knee immobilizer should be opened up or at least loosened to reduce pressure on skin and chance of skin breakdown. Knee immobilizer should be relatively snug during repositioning and while out of bed. Non-weight bearing left lower extremity about 6-8 weeks. Replace soft roll padding and/or Elvis bandage as needed to protect skin from knee immobilizer. Follow-up with trauma disability specialist Dr. Alok Byrd at [facility] Doing ROM. May start weightbearing around 11/06/22-11/20/22.? Next x-rays ordered for 11/08/2022 per ortho (2) Hypertension: Status: Chronic Assessment and plan: blood pressures improved with medication reductions continue to monitor blood pressure and adjust meds as needed. (3) Myasthenia gravis: Status: Chronic Assessment and plan: Stable and at baseline Continue outpatient medical therapy (4) Spinal stenosis: Assessment and plan: With chronic pain - Physical therapy (5) GERD (gastroesophageal reflux disease): Status: Chronic Assessment and plan: Continue PPI. (6) Neurogenic bladder: Status: Chronic Assessment and plan: With history of frequent UTIs, urinalysis done - negative - suprapubic catheter changed (7) Pain: Status: Acute Assessment and plan: Continue Fentanyl patch 100 mcg change every 72 Dilaudid oral PRN apap scheduled Spasm - Flexaril 10 mg daily and @ HS (8) Constipation, chronic: Status: Chronic Assessment and plan: continue bowel regimen and prn relistor as needed (9) DVT prophylaxis: Status: Acute Assessment and plan: Enoxaparin 40 mg sc (10) Discharge planning issues: Status: Acute Assessment and plan: plan for rehab is 6-8 weeks with no surgical intervention, this is [facility] (admitted 09/26/2022) Case management is following for discharge planning Ortho following May start weightbearing around 11/06/22-11/20/22.? Next x-rays ordered for 11/08/2022. Discussed with Dr Hsieh Subjective Subjective Patient reports: no new complaints, pain is less, tolerating a regular diet, bowel movement and afebrile; denies diarrhea or vomiting Interval history since last seen: Missy has no complaints, she is feeling better, anticipating weight bearing next week. Willing to go to Acute rehab when able. Exam Const General: cooperative and no acute distress Orientation: alert, awake and oriented x3 HENMT Head: normal to inspection Face and sinus: normal facial exam Eyes General: appearance normal, both eyes and all related structures Pupils: PERRL EOM: EOM intact bilaterally Neck Neck: normal visual inspection and No submandibular swelling Lymphatic: no lymphadenopathy noted Chest Chest: normal inspection of the chest and no tenderness Resp Effort & Inspection: normal respiratory effort and able to speak in complete sentences Auscultation: clear to auscultation bilaterally Cardio Rate: regular rate Rhythm: regular rhythm GI Inspection: normal to inspection Palpation: soft, not firm, not rigid and nontender Auscultation: normal bowel sounds Back/Spine/Pelvis Thoracic/Lumbar Spine: thoracic and lumbar spine normal to inspection Pelvis: no pain with anterior-posterior compression Skin General skin exam: no rashes or lesions noted Neuro General: patient alert, patient awake and patient oriented x3 Cognition: normal cognition Speech: speech normal Motor: muscle tone normal throughout Sensory Exam: no sensory deficits noted Extrem General: capillary refill normal Right upper extremity: normal to inspection Left upper extremity: normal to inspection Right lower extremity: normal to inspection Left lower extremity: normal to inspection (knee immobilizer in place) and normal capillary refill Psych Appearance: grossly normal Mental Status: mental status grossly normal Speech and Movement: speech and movement normal Affect: normal affect Objective Last Vital Signs Temp 36.0 C L 11/01/22 07:51 Pulse 71 11/01/22 07:51 Resp 16 11/01/22 07:51 BP 100/62 11/01/22 07:51 Pulse Ox 98 11/01/22 07:51 Time Spent with Patient Time Spent with Patient: 25-34 minutes Time was spent: preparing to see the patient(eg.review tests), ordering medications,tests, procedures, indepentently interpreting results, counseling the patient and care coordination
[2022-11-01] MEDS: HYDROmorphone 2 MG TAB PO (19:32)
[2022-11-01] MEDS: Zolpidem 5 MG TAB 10 MG PO (21:30)
[2022-11-01] MEDS: Cyclobenzaprine 10 MG TAB PO (21:31)
[2022-11-01] MEDS: Lidocaine 5% Patch 1 PATCH TP (21:31)
[2022-11-02 06:41] VITALS: BP 101/67; PULSE 79; RESP 14; TEMP 36; O2SAT 96
[2022-11-02 07:28] LABS: Abs Immature Grans 0.01 10^3/uL (0.0-0.06); Absolute Basophil Count 0.03 10^3/uL (0.0-0.2); Absolute Eosinophil Count 0.13 10^3/uL (0.0-0.7); Absolute Lymphocyte Count 1.16 10^3/uL (1.2-3.4); Absolute Monocyte Count 0.52 10^3/uL (0.1-0.8); Absolute Neutrophil Count 2.65 10^3/uL (1.2-6.7); Basophils % 0.7; Eosinophils % 2.9; HCT 34.7 % (36.0-46.0); HGB 10.9 g/dL (11.2-15.7); Immature Grans % 0.2; Lymphocytes % 25.8; MCH 28.6 pg (27.0-33.0); MCHC 31.4 % (32.0-36.0); MCV 91 fL (80-95); MPV 9.4 fL (8.0-11.0); Monocytes % 11.6; Neutrophils % 58.8; Platelet Count 309 10^3/uL (130-400); RBC 3.81 10^6/uL (3.93-5.22); RDW 14.4 % (11.7-14.6); RDW-SD 48.3 fL
[2022-11-02 07:41] LABS: Anion Gap 6.2 mmol/L (3-11); BUN 28 mg/dL (7-18); C-Reactive Protein 0.11 mg/dL (0.0-0.3); CO2 25.8 mmol/L (21.0-32.0); CREATININE 0.9 mg/dL (0.55-1.02); Calcium 9.3 mg/dL (8.5-10.1); Chloride 108 mmol/L (98-107); Estimated GFR 70.07 (mL/min/1.73m2); Glucose 85 mg/dL (74-106); Magnesium 2.1 mg/dL (1.8-2.4); Potassium 4.6 mmol/L (3.5-5.1); Sodium 140 mmol/L (136-145)
[2022-11-02 08:20] VITALS: BP 103/68; PULSE 86; RESP 12; TEMP 36.2; O2SAT 95
[2022-11-02] MEDS: Pantoprazole 40 MG TABCR PO (08:35)
[2022-11-02] MEDS: diazePAM 2 MG TAB PO ×4 (08:35→19:39)
[2022-11-02] MEDS: amLODIPine 2.5 MG TAB PO (08:35)
[2022-11-02] MEDS: Metoprolol 12.5 MG TAB PO ×2 (08:35→19:39)
[2022-11-02] MEDS: Acetaminophen 325 MG TAB 650 MG PO ×4 (08:35→19:39)
[2022-11-02] MEDS: Acetylcysteine 600 MG CAP 1200 MG PO ×2 (08:35→19:41)
[2022-11-02] MEDS: Lisinopril 10 MG TAB PO (08:35)
[2022-11-02] MEDS: Folic Acid 1 MG TAB PO (08:35)
[2022-11-02] MEDS: Enoxaparin 40 MG/0.4 ML SYR SC (08:36)
[2022-11-02] MEDS: Gabapentin 300 MG CAP PO ×2 (08:36→19:39)
[2022-11-02] MEDS: HYDROmorphone 2 MG TAB PO ×3 (08:36→21:10)
[2022-11-02] MEDS: Nystatin POWDER 15 GM JAR TP ×3 (08:36→19:39)
[2022-11-02] MEDS: Collagenase 30 GM TUBE TP (08:37)
[2022-11-02 08:39] VITALS: BP 111/71; PULSE 70
[2022-11-02] MEDS: Lidocaine Patch Removal 1 EACH TP (11:39)
[2022-11-02] MEDS: fentaNYL 100 MCG PATCH TD (13:09)
[2022-11-02] MEDS: Lidocaine 5% Patch 1 PATCH TP (21:10)
[2022-11-02] MEDS: Cyclobenzaprine 10 MG TAB PO (21:10)
[2022-11-02] MEDS: Zolpidem 5 MG TAB 10 MG PO (21:10)
[2022-11-03 07:41] VITALS: BP 106/63; PULSE 89; RESP 20; TEMP 36.7; O2SAT 93
[2022-11-03] MEDS: Gabapentin 300 MG CAP PO ×2 (07:43→20:07)
[2022-11-03] MEDS: Acetylcysteine 600 MG CAP 1200 MG PO ×2 (07:43→20:07)
[2022-11-03] MEDS: HYDROmorphone 2 MG TAB PO ×2 (07:43→21:30)
[2022-11-03] MEDS: diazePAM 2 MG TAB PO ×4 (07:43→20:08)
[2022-11-03] MEDS: Acetaminophen 325 MG TAB 650 MG PO ×4 (07:43→20:07)
[2022-11-03] MEDS: Pantoprazole 40 MG TABCR PO (07:44)
[2022-11-03] MEDS: Enoxaparin 40 MG/0.4 ML SYR SC (07:44)
[2022-11-03] MEDS: amLODIPine 2.5 MG TAB PO (07:44)
[2022-11-03] MEDS: Lisinopril 10 MG TAB PO (07:44)
[2022-11-03] MEDS: Metoprolol 12.5 MG TAB PO ×2 (07:44→20:07)
[2022-11-03] MEDS: Folic Acid 1 MG TAB PO (07:44)
[2022-11-03 07:49] VITALS: BP 100/65; PULSE 73; RESP 14; TEMP 36.5; O2SAT 98
--- NOTE | 2022-11-03 08:46 | CMACTNOTE_ITS ---
- If Service Date Differs Date of service: 11/03/22 Time of Service: 08:46 Care Management Activity Note S/O: Missy remains in SB-1 status until she is able to bear weight which will likely be within the next week or 2. She continues to enjoy visiting with staff and watching tv. Missy has had a few visitors and her therapist/friend has seen her as well. Missy will likely go to a SNF for short term rehab prior to returning home. She verbalized that she prefers to go [facility]. TOMMY spoke to the new social welfare administrator at the [facility] this morning who shared that they have had many discharges and have available male and female beds. She encouraged to send a referral for Missy even though she is not quite ready for transfer. A: Missy is a 67 year old woman admitted on 09/25/22 with a fractured femur. She was transitioned to Swingbed-1 on 10/03/22. P: Missy will remain in SWB1 to continue to work with PT/OT while she is non weight bearing. She will progress toward independence with mobility/transfers once she is able to bear weight. She will likely transfer to a SNF for short term rehab prior to returning home. CM sent a referral to the [facility] today at Missy's request.CM will continue to follow and assess for ongoing discharge concerns.
[2022-11-03] MEDS: Collagenase 30 GM TUBE TP (09:41)
[2022-11-03] MEDS: Nystatin POWDER 15 GM JAR TP ×2 (09:41→20:09)
[2022-11-03] MEDS: Lidocaine Patch Removal 1 EACH TP (10:00)
--- NOTE | 2022-11-03 17:22 | PT.INTREAT ---
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 Wheelchair-bound.? STEDY lift only to ensure WB compliance on L LE. Per Dr. Up's progress note on 10/06/2022:? 1) May start knee range of motion after 10/23/2022 and weight bearing around 11/06/22-11/20/22.? 2) NWB on the L LE with AD until 11/05/2022.? Per Dr. Up's note on 09/26/2022: 1) Keep L knee in extension using knee immobilizer when OOB, No pillow under knee at any time until 10/24/2022. Subjective:? Happy about how much strength and mobility independence she has gained so far. Motivated to improve some more. Objective: General inspection:? Seated on chair.? Brar catheter in place.? ? 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 KI not in place,? pillow placed under knee.? Flexible plantarflexion contracture in B sides noted. Mental Status: Alert and oriented as to person and place.? Some mental lapses noted throughout session,? question short-term memory loss.? Bed Mobility/Transfers: Sit to stand from bedside chair:?minimal assist, KI on L LE Bedside chair to bed:?STEDY lift with assist of PT KI in L LE Sit to supine:?minimal assist to R LE, KI on L LE Gait:? Unable, patient is wheelchair-bound. Balance: Static Sitting: Fair Dynamic Sitting: Fair Static Standing: Poor Dynamic Standing: Unable Thera Ex: 1) Trunk flexion/extension while pulling from front edeg of chair armrest x 10 2) Quads sets x10 3) Heel slides x 10 on R/L able to bend at the knee about 10 degrees on L, 5 degrees on R 4) Punch forward using 1 lb DB 5) GLuteal sets x 10 6) Chest expansion exercises with shoulder flexion/ext and DBE x 5 7) Elbow flexion using 1 lb DB 8) Chest expansion exercises with shoulder hor abd/add and DBE x 5 9) Punch ups using 1 lb DB ASSESSMENT: May have needed L knee bedning during transfer as of 10/24/2022. Improving ability to push onto bed and elevate pelvis to scoot forward and sit down while maintaining trunk extension improving.? However, there is increasing spasticity in B LE noted,? Dr. Moran updated.? Showing some signs of mild confusion/short term memory loss but is able to follow single/double step commands.? Developing plantarflexion contracture seen,? will require positioning regimen to minimize PF ctx progression.? Requires maximal cueing to comply with weight bearing precaution even with use of STEDY lift.? Patient now given a higher chair to facilitate ease of transfer while ensuring maximal L knee extension.? Needs encouragement to consistently comply with room exercises. Positioning recommendations in bed: Continue with ensuring dorsiflexion to neutral in B ankles by placing folded pillow(s) while in bed.? Use blue heels up device placed on blue chair to push B feet into dorsiflexion while seated on bedside recliner. DISCHARGE RECOMMENDATIONS: [] ? Home with no services [] [] ? Home with services [] [] ? Home with outpatient PT [] [X] ? SNF for continued rehabilitation.? [facility] for continued skilled physical therapy services in order to progress mobility level, strength, and balance in preparation for a safe discharge to home. [] ? Skilled Nursing Care [] [X] ? SNF versus LTC based on ability to participate and progress?[] []??SNF vs.? PT based on progress towards goals TREATMENT CODE/TIME: 73319 x 30 minutes, 51763 x 15 minutes beginning at 15:01 PM.
[2022-11-03] MEDS: Cyclobenzaprine 10 MG TAB PO (21:30)
[2022-11-03] MEDS: Zolpidem 5 MG TAB 10 MG PO (21:30)
[2022-11-03] MEDS: Lidocaine 5% Patch 1 PATCH TP (22:50)
[2022-11-03 22:54] VITALS: BP 99/63; PULSE 75; RESP 14; TEMP 36.5; O2SAT 96
[2022-11-04 07:22] VITALS: BP 104/68; PULSE 80; RESP 16; TEMP 36.5; O2SAT 94
[2022-11-04] MEDS: Metoprolol 12.5 MG TAB PO ×2 (07:29→19:37)
[2022-11-04] MEDS: Lisinopril 10 MG TAB PO (07:29)
[2022-11-04] MEDS: Gabapentin 300 MG CAP PO ×2 (07:30→19:37)
[2022-11-04] MEDS: Pantoprazole 40 MG TABCR PO (07:30)
[2022-11-04] MEDS: diazePAM 2 MG TAB PO ×4 (07:30→19:37)
[2022-11-04] MEDS: Acetylcysteine 600 MG CAP 1200 MG PO ×2 (07:30→19:36)
[2022-11-04] MEDS: Enoxaparin 40 MG/0.4 ML SYR SC (07:30)
[2022-11-04] MEDS: Folic Acid 1 MG TAB PO (07:30)
[2022-11-04] MEDS: Acetaminophen 325 MG TAB 650 MG PO ×4 (07:30→19:36)
[2022-11-04] MEDS: amLODIPine 2.5 MG TAB PO (07:30)
[2022-11-04] MEDS: Nystatin POWDER 15 GM JAR TP ×2 (07:31→22:37)
[2022-11-04] MEDS: Collagenase 30 GM TUBE TP (07:46)
[2022-11-04] MEDS: Lidocaine Patch Removal 1 EACH TP (09:21)
--- NOTE | 2022-11-04 15:29 | PTTR_ITS ---
Date of service: 11/04/22 Time of Service: 15:05 PT Notes Visit Reasons: Femur FX Inpatient Physical Therapy Treatment Note [facility] Date: 11/04/2022 PRECAUTIONS: Activity as tolerated, paraparesis, NWB L SUBJECTIVE: Missy is pleasant and agreeable to participating in PT. She reports that nursing just got her back to bed from the chair. OBJECTIVE: PAIN: No c/o pain BED MOBILITY/TRANSFERS: Not assessed THEREX: Patient was instructed in a global strengthening and stabilization program, completed in a supine position, to include: Ankle pumps x10 Quad and glute sets x10 Heel slides (R only) x10 (AA) Bicep curls with 1# x10 Shoulder punch ups with 1# x10 Shoulder flexion with 1# x10 Shoulder horizontal abduction with intentional chest expansion 1# x10 Pull up with trapeze (underhand water/wastewater project engineer) x10 Pull ups with headboard (palms up) x10 ASSESSMENT: Patient continues to be limited by NWB status of L LE. She demonstrates improved exercise tolerance. PLAN: Continue with global strengthening for improved ability to perform daily functional tasks. TREATMENT CODE/TIME: 25 minutes; 92807 x2 (15:05)
[2022-11-04] MEDS: Docusate Sodium 100 MG CAP PO (19:37)
[2022-11-04] MEDS: Lidocaine 5% Patch 1 PATCH TP (21:26)
[2022-11-04] MEDS: Cyclobenzaprine 10 MG TAB PO (21:27)
[2022-11-04] MEDS: Zolpidem 5 MG TAB 10 MG PO (21:27)
[2022-11-04] MEDS: HYDROmorphone 2 MG TAB PO (21:27)
[2022-11-04] MEDS: Ketorolac 10 MG TAB PO (23:13)
[2022-11-05] MEDS: Pantoprazole 40 MG TABCR PO (07:23)
[2022-11-05 07:30] VITALS: BP 109/71; PULSE 82; RESP 16; TEMP 36.1; O2SAT 92
[2022-11-05] MEDS: Acetylcysteine 600 MG CAP 1200 MG PO ×2 (08:23→20:42)
[2022-11-05] MEDS: Acetaminophen 325 MG TAB 650 MG PO ×4 (08:23→20:42)
[2022-11-05] MEDS: Folic Acid 1 MG TAB PO (08:24)
[2022-11-05] MEDS: Lisinopril 10 MG TAB PO (08:24)
[2022-11-05] MEDS: diazePAM 2 MG TAB PO ×4 (08:24→20:43)
[2022-11-05] MEDS: Metoprolol 12.5 MG TAB PO ×2 (08:25→20:42)
[2022-11-05] MEDS: Gabapentin 300 MG CAP PO ×2 (08:25→20:43)
[2022-11-05] MEDS: amLODIPine 2.5 MG TAB PO (08:25)
[2022-11-05] MEDS: Nystatin POWDER 15 GM JAR TP ×3 (08:26→20:44)
[2022-11-05] MEDS: Collagenase 30 GM TUBE TP (08:26)
[2022-11-05] MEDS: Enoxaparin 40 MG/0.4 ML SYR SC (08:27)
[2022-11-05] MEDS: Lidocaine Patch Removal 1 EACH TP (10:49)
[2022-11-05] MEDS: fentaNYL 100 MCG PATCH TD (13:28)
--- NOTE | 2022-11-05 15:05 | PTTR_ITS ---
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 Wheelchair-bound.? STEDY lift only to ensure WB compliance on L LE. Per Dr. Up's progress note on 10/06/2022:? 1) May start knee range of motion after 10/23/2022 and weight bearing around 11/06/22-11/20/22.? 2) NWB on the L LE with AD until 11/05/2022.? Per Dr. Up's note on 09/26/2022: 1) Keep L knee in extension using knee immobilizer when OOB no pillow under knee at any time until 10/24/2022. Subjective:? Agreeable to session. Reports pain in L leg at 5/10 with movement and weight bearing, 3-4/10 at rest. Objective: General inspection:? Seated on chair.? Brar catheter in place.? ? 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 KI not in place,? pillow placed under knee.? Flexible plantarflexion contracture in B sides noted. Mental Status: Alert and oriented as to person and place.? Some mental lapses noted throughout session,? question short-term memory loss.? Bed Mobility/Transfers: Sit to stand from bedside chair:?minimal assist,? KI on L LE Bedside chair to bed:?STEDY lift with assist of PT KI in L LE Sit to supine:?minimal assist to R LE, KI on L LE Gait:? Unable, patient is wheelchair-bound. Balance: Static Sitting: Fair Dynamic Sitting: Fair Static Standing: Poor Dynamic Standing: Unable Thera Ex: 1) Trunk flexion/extension while pulling from front edge of chair armrest x 10 2) Quads sets x10 3) Heel slides x 10 on R/L able to bend at the knee about 10 degrees on L, 5 degrees on R 4) Punch forward using 1 lb DB 5) GLuteal sets x 10 6) Chest expansion exercises with shoulder flexion/ext and DBE x 5 7) Elbow flexion using 1 lb DB 8) Chest expansion exercises with shoulder hor abd/add and DBE x 5 9) Punch ups using 1 lb DB ASSESSMENT: May bend L knee during transfer as of 10/24/2022.??Improving ability to push onto bed and elevate pelvis to scoot forward and sit down while maintaining trunk extension improving.? Spasticity less in the L leg today.? Showing some signs of mild confusion/short term memory loss but is able to follow single/double step commands.? Developing plantarflexion contracture seen,? will require positioning regimen to minimize PF ctx progression.? Requires maximal cueing to comply with weight bearing precaution even with use of STEDY lift.? Patient now given a higher chair to facilitate ease of transfer while ensuring maximal L knee extension.? Needs encouragement to consistently comply with room exercises. Positioning recommendations in bed and while seated on chair: Continue with ensuring dorsiflexion to neutral in B ankles by placing folded pillow(s) while in bed.? Use blue heels up device placed on blue chair to push B feet into dorsiflexion while seated on bedside recliner. DISCHARGE RECOMMENDATIONS: [] ? Home with no services [] [] ? Home with services [] [] ? Home with outpatient PT [] [X] ? SNF for continued rehabilitation.? Patient will benefit from [facility] facility placement for continued skilled physical therapy services in order to progress mobility level, strength, and balance in preparation for a s afe discharge to home. [] ? [employer] [facility] [] [X] ? SNF versus LTC based on ability to participate and progress?[] []??SNF vs.? PT based on progress towards goals TREATMENT CODE/TIME: 34024 x 20 minutes,? 74649 x? 12 minutes beginning at 14:28 AM.
[2022-11-05] MEDS: HYDROmorphone 2 MG TAB PO (20:42)
[2022-11-05] MEDS: Zolpidem 5 MG TAB 10 MG PO (20:43)
[2022-11-05] MEDS: Cyclobenzaprine 10 MG TAB PO (20:43)
[2022-11-05] MEDS: Lidocaine 5% Patch 1 PATCH TP (20:43)
[2022-11-06] MEDS: Ketorolac 10 MG TAB PO ×2 (01:47→22:53)
[2022-11-06] MEDS: Pantoprazole 40 MG TABCR PO (07:09)
[2022-11-06 07:24] VITALS: BP 98/60; PULSE 71; RESP 16; TEMP 36; O2SAT 96
[2022-11-06] MEDS: Lisinopril 10 MG TAB PO (08:39)
[2022-11-06] MEDS: diazePAM 2 MG TAB PO ×4 (08:40→20:03)
[2022-11-06] MEDS: amLODIPine 2.5 MG TAB PO (08:40)
[2022-11-06] MEDS: Folic Acid 1 MG TAB PO (08:41)
[2022-11-06] MEDS: Acetylcysteine 600 MG CAP 1200 MG PO ×2 (08:41→20:02)
[2022-11-06] MEDS: Metoprolol 12.5 MG TAB PO ×2 (08:41→20:03)
[2022-11-06] MEDS: Acetaminophen 325 MG TAB 650 MG PO ×4 (08:41→20:03)
[2022-11-06] MEDS: Enoxaparin 40 MG/0.4 ML SYR SC (08:42)
[2022-11-06] MEDS: Gabapentin 300 MG CAP PO ×2 (08:42→20:03)
[2022-11-06] MEDS: Nystatin POWDER 15 GM JAR TP ×3 (08:43→20:03)
[2022-11-06] MEDS: Collagenase 30 GM TUBE TP (08:43)
[2022-11-06] MEDS: Lidocaine Patch Removal 1 EACH TP (10:09)
[2022-11-06] MEDS: Zolpidem 5 MG TAB 10 MG PO (20:02)
[2022-11-06] MEDS: Lidocaine 5% Patch 1 PATCH TP (20:03)
[2022-11-06] MEDS: Cyclobenzaprine 10 MG TAB PO (20:03)
[2022-11-06] MEDS: HYDROmorphone 2 MG TAB PO (20:03)
[2022-11-07 06:23] VITALS: BP 113/74; PULSE 80; RESP 20; TEMP 36.3; O2SAT 95
[2022-11-07] MEDS: Lisinopril 10 MG TAB PO (09:33)
[2022-11-07] MEDS: Gabapentin 300 MG CAP PO ×2 (09:33→20:16)
[2022-11-07] MEDS: Metoprolol 12.5 MG TAB PO ×2 (09:34→20:17)
[2022-11-07] MEDS: Ketorolac 10 MG TAB PO ×2 (09:34→20:17)
[2022-11-07] MEDS: Acetylcysteine 600 MG CAP 1200 MG PO ×2 (09:34→20:16)
[2022-11-07] MEDS: Pantoprazole 40 MG TABCR PO (09:35)
[2022-11-07] MEDS: diazePAM 2 MG TAB PO ×4 (09:35→20:18)
[2022-11-07] MEDS: Acetaminophen 325 MG TAB 650 MG PO ×4 (09:35→20:17)
[2022-11-07] MEDS: Folic Acid 1 MG TAB PO (09:35)
[2022-11-07] MEDS: amLODIPine 2.5 MG TAB PO (09:36)
[2022-11-07] MEDS: Enoxaparin 40 MG/0.4 ML SYR SC (09:37)
[2022-11-07] MEDS: Collagenase 30 GM TUBE TP (09:39)
[2022-11-07] MEDS: Nystatin POWDER 15 GM JAR TP ×3 (10:06→20:18)
[2022-11-07] MEDS: HYDROmorphone 2 MG TAB PO (10:28)
[2022-11-07] MEDS: Lidocaine Patch Removal 1 EACH TP (10:34)
[2022-11-07] MEDS: fentaNYL 100 MCG PATCH TD (10:52)
--- NOTE | 2022-11-07 16:00 | DI.RAD_ITS ---
Exam(s) XR KNEE LT 2V AP,LAT EXAM: XR KNEE LT 2V AP,LAT CLINICAL HISTORY: f/u fx. TECHNIQUE: 2D digital imaging was performed. Three views. COMPARISON: CT CT LOWER EXTREMITY LT WO from 09/25/2022 CR XR KNEE LT 2V AP,LAT from 10/18/2022 FINDINGS: There has been no change in the alignment of the distal femoral fracture. There is mild surrounding callus formation. The bones appear osteopenic from disuse. And of soft tissue swelling has decrease d. IMPRESSION: Healing fracture of distal femur. DATA REPOSITORY: RADIATION DOSE DELIVERED:
--- NOTE | 2022-11-07 16:32 | DI.VRAD_ITS ---
PROCEDURE INFORMATION: Exam: XR Left Knee Exam date and time: 11/07/2022 4:11 PM Age: 67 years old Clinical indication: Screening exam; F/u FX TECHNIQUE: Imaging protocol: Radiologic exam of the left knee. Views: 1 or 2 views. COMPARISON: CR XR KNEE LT 2V AP,LAT 10/18/2022 8:31 AM FINDINGS: Bones/joints: Distal left femur fracture is again noted. Stable appearance and alignment since 10/18 2022. Osteopenia is noted. Knee joint is in alignment. Patella is unremarkable. Proximal tibia and fibula are unremarkable. Some features of interval healing and bone growth are noted in comparison with an older study from 10/06/2022. Soft tissues: No acute soft tissue derangement. Mild soft tissue swelling which appears to be improving since previous study. IMPRESSION: 1. Stable distal left femur metaphyseal and epiphyseal fracture alignment in comparison with previous study 10/18/2022. Interval healing is noted in comparison with previous older studies dating back to 10/06/2022. 2. Improving soft tissue swelling. Dictated and Authenticated by: Eloy Holcomb MD. Ordering:ABBY Ceja MD
[2022-11-07] MEDS: Lidocaine 5% Patch 1 PATCH TP (22:44)
[2022-11-07] MEDS: Cyclobenzaprine 10 MG TAB PO (22:44)
[2022-11-07] MEDS: Zolpidem 5 MG TAB 10 MG PO (22:44)
[2022-11-08] MEDS: diazePAM 2 MG TAB PO ×4 (07:31→21:28)
[2022-11-08] MEDS: Folic Acid 1 MG TAB PO (07:31)
[2022-11-08] MEDS: Gabapentin 300 MG CAP PO ×2 (07:31→21:27)
[2022-11-08] MEDS: Pantoprazole 40 MG TABCR PO (07:31)
[2022-11-08] MEDS: Metoprolol 12.5 MG TAB PO ×2 (07:31→21:28)
[2022-11-08] MEDS: Lisinopril 10 MG TAB PO (07:31)
[2022-11-08] MEDS: Acetaminophen 325 MG TAB 650 MG PO ×4 (07:31→21:28)
[2022-11-08] MEDS: amLODIPine 2.5 MG TAB PO (07:31)
[2022-11-08] MEDS: Acetylcysteine 600 MG CAP 1200 MG PO ×2 (07:31→21:27)
[2022-11-08] MEDS: Enoxaparin 40 MG/0.4 ML SYR SC (07:32)
[2022-11-08] MEDS: Collagenase 30 GM TUBE TP (07:33)
[2022-11-08] MEDS: Nystatin POWDER 15 GM JAR TP ×3 (07:35→22:51)
[2022-11-08 07:58] VITALS: BP 105/67; PULSE 74; RESP 14; TEMP 36; O2SAT 92
[2022-11-08] MEDS: Lidocaine Patch Removal 1 EACH TP (09:04)
--- NOTE | 2022-11-08 17:05 | PT.INPN ---
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 wheelchair-bound.? STEDY lift only to ensure WB compliance on L LE. Per Dr. Up's progress note on 10/06/2022:? 1) May start knee range of motion after 10/23/2022 and weight bearing around 11/06/22-11/20/22.? 2) NWB on the L LE with AD until 11/05/2022.? Per Dr. Up's note on 09/26/2022: 1) Keep L knee in extension using knee immobilizer when OOB, no pillow under knee at any time until 10/24/2022. Subjective:? Agreeable to trying out gentle weight bearing on the L LE with walker and with the STEDY lift for this session. Reports pain in the L arm and L leg at rest adn with weight bearing at 5-6/10, Nurse Parish aware. Objective: General inspection:? Seated on chair.? Brar catheter in place.? ? 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 KI in place.? Flexible plantarflexion contracture in B sides noted. Mental Status: Alert.? Needed more cueing at the start of the session,? had a challenge following instructions for the exercises. ROM: Right Upper Extremity: ? Shoulder Flexion WFL. Shoulder abduction WFL. Elbow flexion WFL. Wrist flexion WFL. Functional opening and closing of hand limited Left Upper Extremity:? Shoulder Flexion WFL. Shoulder abduction WFL. Elbow flexion WFL. Wrist flexion WFL. Awkard opening and closing of hand WFL. Right Lower Extremity: Hip flexion allows up to 60 degrees. Hip abduction 25 degrees. Knee flexion up to 90 degrees passively. Ankle dorsiflexion -45. Ankle plantarflexion contracture to about 45 degrees. Left Lower Extremity: HIp and knee flexion less than 10 degrees actively with pain reported.? Active ankle DF to about 5 degees only from a fully platarflexed position. Strength: Right Upper Extremity: Shoulder flexors 4/5. Shoulder abductors 4/5. Elbow flexors 4-/5. Elbow extensors 4/5. [employer] weak but functional Left Upper Extremity: Shoulder flexors 4-/5. Shoulder abductors 4-/5. Elbow flexors 3+/5. Elbow extensors 4-/5. 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 Hip abductors 2-/5. Knee flexors 3-/5. Knee extensors 3-/5. Ankle dorsiflexors 1/5. Ankle plantarflexors 2-/5. Left Lower Extremity: Hip NT.? Knee NT. Ankle 1/5. Sensation:? Intact as to pain,? impaired as to light touch in B LE Bed Mobility/Transfers: Sit to stand stand by assist from bedside chair with KI on L LE using STEDY lift Sit to stand moderate assist of 2 using FWW, patient needing cues for posture, hand placement, and weight bearing precaution Stand to sit stand contact guard assist with KI on L LE using STEDY lift Gait:? Unable, patient is wheelchair-bound. Balance: Static Sitting: Fair Dynamic Sitting: Poor Static Standing: Poor Dynamic Standing: Unable Thera Ex: 1) Resisted ankle PF x 10 against manual resistance of PT 2) Quads sets x10 3) Heel slides x 10 on R/L able to bend at the knee less than 10 degrees on L, 10 degrees on R 4) Glutes sets x 10 5) B UE punch outs x 10 6) While seated on bedside chair,? pull forward/trunk flexion x 10 7) DBE x 3 after 2-3 exercises 8) Chair push ups x 10 ASSESSMENT: Unable to stand tall enough to be safe on FWW without moderate assist of 2. Weak trunk extensors and hip extensors. Will plan to add a regiment of strengthening to address weakness and facilitate safe stand pivot transfers. Continued with active assistive knee range of motion per orthopd order.???Improving ability to push onto bed and elevate pelvis to scoot forward and sit down while maintaining trunk extension improving.??Showing some signs of mild confusion/short term memory loss but is able to follow single/double step commands.? Developing plantarflexion contracture,?continue with positioning regimen to minimize PF ctx progression.? Per Dr. Up,? patient may proceed with knee range of motion after 10/23/2022 and weight bearing around 3/25/23-11/20/22.? Will clarify amount of WB orthopod would like as the date approaches. Patient has had quite the ordeal with bed mobility progression in the past couple of weeks due to WB precaution, pre-existing paraparesis,? myasthenia gravis, and behavioral/anxiety issues which necessitated use of direct bed-chair transfer using forward-backward technique as patient became so anxious about use of slide board. Positioning recommendations in bed: Ensure dorsiflexion to neutral in B ankles by placing folded pillow(s) while in bed.? Use blue heels up device placed on blue chair to push B feet into dorsiflexion while seated on bedside recliner. Patient presents with clinical signs and symptoms consistent with current/admitting diagnoses that have resulted to mobility limitations, gait instability, generalized weakness, and overall ADL decline as demonstrated by the following impairment level findings: 1.? Decreased strength to B UE/LE? major muscle groups 2.? Impaired sitting balance but imporved from the last progress note done 3.? WB precuation: NWB L LE until 11/05/2022 4.? Limitation of joint range of motion in L hand, B UE joints 5.? Pain in L UE 6.? Intermittent spasms in B LE with L<<R (resolved) 7.? Beginning flexible plantarflexion contracture in B ankles Impairments are contributing to the following functional limitations: 1.? Decline in bed mobility skills 2.? Decline in transfer skills 3.? Wheelchair-bound 4.? Increased completion time for mobility ADL performance 5.? Increased risk for falls 6.? Increased risk for skin breakdown/infection Goals: Goals X1 week 1. Supine-Sit? modified independent.?NOT MET, CONTINUE. 2. Sit-Supine? contact guard assist,?NOT MET. CONTINUE. 3. Sit-squat assist of 2 or less with set up assist,??NOT MET, CONTINUE 4.? Patient will maintain static standing with NWB in L LE for about 5 minutes inside parallel bars or with use of FWW?NOT MET, CONTINUE 5. Patient will perform stand pivot transfers using FWW with minimla assist of 2. NEW GOAL OF 11/08/22. Plan of Care/Treatment Plan: 1/day, 5 days/week x 2 weeks. Plan of care has been reviewed with the MAGNETIC DOCTOR providing the service under Physical Therapy direction. Initiate Physical Therapy intervention for strengthening, bed mobility, transfers, gait,? balance training, use of assistive device for transfers into w/c. DISCHARGE RECOMMENDATIONS: [] ? Home with no services [] [] ? Home with services [] [] ? Home with outpatient PT [] [X] ? SNF for continued rehabilitation.? Patient will benefit from assisted facility placement for continued skilled physical therapy services in order to progress mobility level, strength, and balance in preparation for a safe discharge to home. [] ? [facility] Care [] [X] ? SNF versus LTC based on ability to participate and progress?[] []??SNF vs.? PT based on progress towards goals TREATMENT CODE/TIME: 44872 x 28 minutes beginning at 15:12 PM. Thank you for the opportunity to participate in the care of this patient. Ching Viveros PT, DPT, CLT [facility] [place], [place]
[2022-11-08] MEDS: Lidocaine 5% Patch 1 PATCH TP (21:26)
[2022-11-08] MEDS: Zolpidem 5 MG TAB 10 MG PO (21:27)
[2022-11-08] MEDS: Cyclobenzaprine 10 MG TAB PO (21:27)
[2022-11-08] MEDS: Ketorolac 10 MG TAB PO (21:28)
[2022-11-09 06:48] LABS: Abs Immature Grans 0.01 10^3/uL (0.0-0.06); Absolute Basophil Count 0.03 10^3/uL (0.0-0.2); Absolute Eosinophil Count 0.18 10^3/uL (0.0-0.7); Absolute Lymphocyte Count 1.27 10^3/uL (1.2-3.4); Absolute Neutrophil Count 1.95 10^3/uL (1.2-6.7); Basophils % 0.8; Eosinophils % 4.7; HGB 11.2 g/dL (11.2-15.7); Immature Grans % 0.3; Lymphocytes % 33.1; MCH 29.2 pg (27.0-33.0); MCV 91 fL (80-95); MPV 9.2 fL (8.0-11.0); Monocytes % 10.4; Neutrophils % 50.7; Platelet Count 278 10^3/uL (130-400); RBC 3.84 10^6/uL (3.93-5.22); RDW-SD 47.5 fL; WBC 3.84 10^3/uL (4.4-10.8)
[2022-11-09 07:02] LABS: Anion Gap 7.7 mmol/L (3-11); BUN 35 mg/dL (7-18); CO2 25.3 mmol/L (21.0-32.0); CREATININE 1.1 mg/dL (0.55-1.02); Calcium 9.2 mg/dL (8.5-10.1); Chloride 107 mmol/L (98-107); Estimated GFR 55.07 (mL/min/1.73m2); Glucose 78 mg/dL (74-106); Magnesium 2.2 mg/dL (1.8-2.4); Potassium 5.3 mmol/L (3.5-5.1); Sodium 140 mmol/L (136-145)
[2022-11-09 07:45] VITALS: BP 106/67; PULSE 72; RESP 16; TEMP 36.4; O2SAT 92
[2022-11-09] MEDS: Pantoprazole 40 MG TABCR PO (08:04)
[2022-11-09] MEDS: Gabapentin 300 MG CAP PO ×2 (08:04→19:47)
[2022-11-09] MEDS: amLODIPine 2.5 MG TAB PO (08:04)
[2022-11-09] MEDS: Enoxaparin 40 MG/0.4 ML SYR SC (08:04)
--- NOTE | 2022-11-09 08:04 | PGE_ITS ---
Date of Service Date of service: 11/08/22 Time of Service: 17:00 Assessment and Plan Assessment and plan (1) Closed fracture of left distal femur: Status: Acute Assessment and plan: 67 year old female 6+ weeks status post Left intra-articular minimally displaced distal femur fx 09/25/22 Repeat left knee x-rays done 11/07/2022 show moderate healing/callus formation, maintained alignment of extra-articular and intra-articular fracture fragment, and extensive bone demineralization New rehab guidelines?okay to progress to full range of motion, both active and passive. Gradually progress from partial <50% weight bearing to full WBAT over the next 2 weeks for stance and ambulation- must avoid any twisting/pivoting through the fracture until at least 11/23/2022. Next x-rays ordered 11/22/2022. Objective Last Vital Signs Temp 97.5 F L 11/09/22 07:45 Pulse 72 11/09/22 07:45 Resp 16 11/09/22 07:45 BP 106/67 11/09/22 07:45 Pulse Ox 92 11/09/22 07:45 Laboratory Results - last 24 hr 11/09/22 11/09/22 06:08 06:08 WBC 3.84 L RBC 3.84 L Hgb 11.2 Hct 35.0 L MCV 91 MCH 29.2 MCHC 32.0 RDW 14.0 Plt Count 278 MPV 9.2 Immature Gran % 0.3 Neutrophils % 50.7 Lymphocytes % 33.1 Monocytes % 10.4 Eosinophils % 4.7 Basophils % 0.8 Nucleated RBC % 0.0 Absolute Neutrophils 1.95 Absolute Lymphocytes 1.27 Absolute Monocytes 0.40 Absolute Eosinophils 0.18 Absolute Basophils 0.03 Sodium 140 Potassium 5.3 H Chloride 107 Carbon Dioxide 25.3 Anion Gap 7.7 BUN 35 H Creatinine 1.1 H Est GFR (CKD-EPI 2020) 55.07 Glucose 78 Calcium 9.2 Magnesium 2.2 Time Spent with Patient Time Spent with Patient: <25 minutes (Patient will be seen in-person to review WB progress at the end of this week) Time was spent: preparing to see the patient(eg.review tests), ordering medications,tests, procedures, referring, communicating with other health patient care technician and indepentently interpreting results
[2022-11-09] MEDS: Acetylcysteine 600 MG CAP 1200 MG PO ×2 (08:05→19:47)
[2022-11-09] MEDS: Lisinopril 10 MG TAB PO (08:05)
[2022-11-09] MEDS: Metoprolol 12.5 MG TAB PO ×2 (08:05→19:46)
[2022-11-09] MEDS: Acetaminophen 325 MG TAB 650 MG PO ×4 (08:05→19:46)
[2022-11-09] MEDS: diazePAM 2 MG TAB PO ×4 (08:05→19:47)
[2022-11-09] MEDS: Nystatin POWDER 15 GM JAR TP ×3 (08:06→19:49)
[2022-11-09] MEDS: Folic Acid 1 MG TAB PO (08:06)
[2022-11-09] MEDS: Lidocaine Patch Removal 1 EACH TP (08:34)
[2022-11-09] MEDS: Collagenase 30 GM TUBE TP (13:30)
--- NOTE | 2022-11-09 14:06 | CHAPLAIN ---
Missy was up in the recliner when I visited. She said she'd had a quiet weekend, as most day are for her here. She thought she might soon begin putting some weight on her leg, which she hasn't been able to do for weeks now. Missy continues to be pleasant and engages in conversation.
--- NOTE | 2022-11-09 15:41 | NUR.NOTE ---
PT came and got this nurse to report a bruised/raised area to Ian rollins of pt. This nurse went in to assess area, and noted a 2cm x 2 cm raised area with some purple/yellow/green bruising around site. Pt denies hitting area and there is no warmth to area. Region circled and dated so progression of swelling can be monitored. CC made aware.
--- NOTE | 2022-11-09 17:39 | PT.INTREAT ---
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 Wheelchair-bound.? STEDY lift only to ensure WB compliance on L LE. Per Dr. Up's progress note on 10/06/2022:? Okay to progress to full range of motion, both active and passive.? Gradually progress from partial <50% weight bearing to full WBAT over the next 2 weeks for stance and ambulation- must avoid any twisting/pivoting through the fracture until at least 11/23/2022. Subjective:? Agreeable to session.? Denies pain in L arm today. Minimla pain in L knee with AAROM. Unsure of how she got a contused area on the middle third of the R rollins. When asked how patient transferred prior to admission, she states that she had a hard time fully standing up and it sounded like she was mostly doing squat-pivoty transfer with the L LE leading. Objective: General inspection:? A slightly elevated somewhat ovoid-shaped closed swollen area with surrounding area discolored was noted on the middle anterior third of the R leg. Patient did not report nay tenderness to palpation nor pain on said area. Nurse Maria Victoria made aware who circled the are for monitoring. Seated on chair.? Brar catheter in place.? ? 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 KI not in place,? pillow placed under knee.? Flexible plantarflexion contracture in B sides noted. Mental Status: Alert and oriented as to person and place.? Some mental lapses noted throughout session,? question short-term memory loss.? Bed Mobility/Transfers: Scooting backward on chair independent Elevating pelvis independent Gait:? Unable, patient is wheelchair-bound. Balance: Static Sitting: Fair Dynamic Sitting: Fair Static Standing: Poor Dynamic Standing: Unable Thera Ex: 1) Trunk flexion/extension while pulling from front edge of chair armrest x 10 2) Quads sets x10 3) Heel slides x 10 on R/L able to bend at the knee about 10 degrees on L, 5 degrees on R with AAROM by PT 4) Chair push ups x 10 5) Gluteal sets x 10 6) Resisted PF 7) Modified bridging while on bedside chair with 2 pillows under L LE and with R knee bent with assistance from PT x 10 ASSESSMENT: Baseline mobility level was squat-pivot transfer with the L LE leading as the L side had been stronger than the R. Due to weight bearing precautions, this has been presenting a challenge for the patient and will require longer time to functionally improve. Unable to fully extend trunk and hips during attempt at standing today. Will need additional exercises to increase trunk/hip extensor strength. May bend L knee during transfer as of 10/24/2022.?? Improving ability to push onto bed and elevate pelvis to scoot forward and sit down while maintaining trunk extension improving.? Spasticity less in the L leg today.? Developing plantarflexion contracture seen,? will require positioning regimen to minimize PF ctx progression.? Positioning recommendations in bed and while seated on chair: Continue with ensuring dorsiflexion to neutral in B ankles by placing folded pillow(s) while in bed.? Use blue heels up device placed on blue chair to push B feet into dorsiflexion while seated on bedside recliner. DISCHARGE RECOMMENDATIONS: [] ? Home with no services [] [] ? Home with services [] [] ? Home with outpatient PT [] [X] ? SNF for continued rehabilitation.? Patient will benefit from correction facility placement for continued skilled physical therapy services in order to progress mobility level, strength, and balance in preparation for a safe discharge to home. [] ? Electrical Prospector Care [] [X] ? SNF versus LTC based on ability to participate and progress?[] []??SNF vs.? PT based on progress towards goals EQUIPMENT NEEDS: Wheelchair with elevating leg rests, swing-away arm rests, anti-tippers, toggled hand rims, 2-inch gel cushion, feet positioners (attachment) TREATMENT CODE/TIME: 42258 x 40 minute beginning at 15:20 PM.
[2022-11-09] MEDS: Lidocaine 5% Patch 1 PATCH TP (21:43)
[2022-11-09] MEDS: Cyclobenzaprine 10 MG TAB PO (21:43)
[2022-11-09] MEDS: Zolpidem 5 MG TAB 10 MG PO (21:43)
[2022-11-09] MEDS: HYDROmorphone 2 MG TAB PO (21:44)
[2022-11-10 07:18] VITALS: BP 102/64; PULSE 85; RESP 14; TEMP 36.3; O2SAT 94
[2022-11-10] MEDS: Metoprolol 12.5 MG TAB PO ×2 (08:11→20:31)
[2022-11-10] MEDS: Gabapentin 300 MG CAP PO ×2 (08:12→20:36)
[2022-11-10] MEDS: Lisinopril 10 MG TAB PO (08:12)
[2022-11-10] MEDS: Pantoprazole 40 MG TABCR PO (08:12)
[2022-11-10] MEDS: amLODIPine 2.5 MG TAB PO (08:12)
[2022-11-10] MEDS: Acetaminophen 325 MG TAB 650 MG PO ×4 (08:13→20:32)
[2022-11-10] MEDS: diazePAM 2 MG TAB PO ×4 (08:13→20:31)
[2022-11-10] MEDS: Acetylcysteine 600 MG CAP 1200 MG PO ×2 (08:13→20:33)
[2022-11-10] MEDS: Folic Acid 1 MG TAB PO (08:13)
[2022-11-10] MEDS: Enoxaparin 40 MG/0.4 ML SYR SC (08:14)
[2022-11-10 08:15] VITALS: RESP 16
[2022-11-10] MEDS: Collagenase 30 GM TUBE TP (08:15)
[2022-11-10] MEDS: Nystatin POWDER 15 GM JAR TP ×3 (08:15→20:35)
[2022-11-10] MEDS: HYDROmorphone 2 MG TAB PO ×3 (08:21→20:35)
--- NOTE | 2022-11-10 10:06 | PDOC.CMACT ---
- If Service Date Differs Date of service: 11/10/22 Time of Service: 10:06 Care Management Activity Note S/O: Missy remains in SB-1 status. She has just been cleared by orthopedics to begin partial weight bearing on her fractured left leg and is working with PT. She will need to be independent with transfers before she is ready and safe to discharge home. Missy continues to enjoy visiting with staff and watching tv. She has done some pencil sketches as well to pass the time. Missy has had a few visitors and her therapist/friend has seen her as well. CM will notify the [facility] that Missy is soon going to be ready for short term rehab and enquire if they are able to extend a bed offer at this time. A: Missy is a 67 year old woman admitted on 09/25/22 with a fractured femur. She was transitioned to Swingbed-1 on 10/03/22. P: Missy will remain in SWB1 to continue to work with PT/OT while she is non weight bearing. She will progress toward independence with mobility/transfers once she is able to bear weight. She will likely transfer to a SNF for short term rehab prior to returning home. CM sent a referral to the [facility] today at Missy's request.CM will continue to follow and assess for ongoing discharge concerns.
[2022-11-10] MEDS: fentaNYL 100 MCG PATCH TD (10:13)
[2022-11-10] MEDS: Lidocaine Patch Removal 1 EACH TP (10:18)
--- NOTE | 2022-11-10 12:50 | PTTR_ITS ---
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 Wheelchair-bound.? STEDY lift only to ensure WB compliance on L LE. Per Dr. Up's progress note on 10/06/2022:? Okay to progress to full range of motion, both active and passive.? Gradually progress from partial <50% weight bearing to full WBAT over the next 2 weeks for stance and ambulation- must avoid any twisting/pivoting through the fracture until at least 11/23/2022. Subjective:? 5/10 on the L knee with weight bearing that subsided with rest. Objective: General inspection:? A slightly elevated somewhat ovoid-shaped closed swollen area with surrounding area now lightening up on the middle anterior third of the R leg. Patient did not report nay tenderness to palpation nor pain on said area.? Nurse Maria Victoria made aware who circled the are for monitoring.? Seated on chair.? Brar catheter in place.? ? 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 KI not in place,? pillow placed under knee.? Flexible plantarflexion contracture in B sides noted. Mental Status: Alert and oriented as to person and place.? Some mental lapses noted throughout session,? question short-term memory loss.? Bed Mobility/Transfers: Scooting backward on chair independent Elevating pelvis independent Sit<>stand using STEDY lift with moderate verbal cues for posture to increase trunk/hip/knee extension Gait:? Unable, patient is wheelchair-bound. Balance: Static Sitting: Fair Dynamic Sitting: Fair Static Standing: Poor Dynamic Standing: Unable NEURO RE-ED: 1) Trunk flexion/extension while pulling from front edge of chair armrest x 10 2) Quads sets x10 3) Heel slides x 10 on R/L able to bend at the knee about 10 degrees on L, 5 degrees on R with AAROM by PT 4) Chair push ups x 10 5) Gluteal sets x 10 6) Sit<>Stand with 20-second hold with concurrent gluteal sets x 10 reps 7) Modified bridging while on bedside chair with 2 pillows under L LE and with R knee bent with assistance from PT x 10 8) Rythmic stabilization for trunk flexors ASSESSMENT: Baseline mobility level was squat-pivot transfer with the L LE leading as the L side had been stronger than the R.? Due to weight bearing precautions,? this has been presenting a challenge for the patient and will require longer time to functionally improve.? Unable to fully extend trunk and hips during attempt at standing today.? Will need additional exercises to increase trunk/hip extensor strength.? May bend L knee during transfer as of 10/24/2022.?? Improving ability to push onto bed and elevate pelvis to scoot forward and sit down while maintaining trunk extension improving.? Spasticity less in the L leg today.? Developing plantarflexion contracture seen,? will require positioning regimen to minimize PF ctx progression.? Positioning recommendations in bed and while seated on chair: Continue with ensuring dorsiflexion to neutral in B ankles by placing folded pillow(s) while in bed.? Use blue heels up device placed on blue chair to push B feet into dorsiflexion while seated on bedside recliner. DISCHARGE RECOMMENDATIONS: [] ? Home with no services [] [] ? Home with services [] [] ? Home with outpatient PT [] [X] ? SNF for continued rehabilitation.? Patient will benefit from alf facility placement for continued skilled physical therapy services in order to progress mobility level, strength, and balance in preparation for a safe discharge to home. [] ? Skilled Nursing Care [] [X] ? SNF versus LTC based on ability to participate and progress?[] []??SNF vs.? PT based on progress towards goals EQUIPMENT NEEDS: Wheelchair with elevating leg rests,? swing-away arm rests,? anti-tippers,? toggled hand rims,? 2-inch gel cushion, feet positioners (attachment) TREATMENT CODE/TIME: 32958 x 33 minute beginning at 11:32 AM.
[2022-11-10] MEDS: Zolpidem 5 MG TAB 10 MG PO (20:32)
[2022-11-10] MEDS: Lidocaine 5% Patch 1 PATCH TP (20:36)
[2022-11-10] MEDS: Cyclobenzaprine 10 MG TAB PO (20:36)
[2022-11-11 07:17] VITALS: BP 100/52; PULSE 74; RESP 14; TEMP 36.2; O2SAT 94
[2022-11-11] MEDS: Acetaminophen 325 MG TAB 650 MG PO ×4 (07:39→20:25)
[2022-11-11] MEDS: Pantoprazole 40 MG TABCR PO (07:40)
[2022-11-11] MEDS: Gabapentin 300 MG CAP PO ×2 (07:41→20:24)
[2022-11-11] MEDS: amLODIPine 2.5 MG TAB PO (07:41)
[2022-11-11] MEDS: Lisinopril 10 MG TAB PO (07:43)
[2022-11-11] MEDS: Acetylcysteine 600 MG CAP 1200 MG PO ×2 (07:43→20:25)
[2022-11-11] MEDS: Folic Acid 1 MG TAB PO (07:44)
[2022-11-11] MEDS: diazePAM 2 MG TAB PO ×4 (07:44→20:24)
[2022-11-11] MEDS: Enoxaparin 40 MG/0.4 ML SYR SC (07:44)
[2022-11-11] MEDS: Nystatin POWDER 15 GM JAR TP ×3 (07:45→20:25)
[2022-11-11] MEDS: Collagenase 30 GM TUBE TP (07:45)
[2022-11-11] MEDS: Metoprolol 12.5 MG TAB PO ×2 (07:48→20:25)
[2022-11-11] MEDS: Lidocaine Patch Removal 1 EACH TP (10:22)
--- NOTE | 2022-11-11 11:27 | PT.INTREAT ---
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 Wheelchair-bound.? STEDY lift only to ensure WB compliance on L LE. Per Dr. Up's progress note on 10/06/2022:? Okay to progress to full range of motion, both active and passive.? Gradually progress from partial <50% weight bearing to full WBAT over the next 2 weeks for stance and ambulation- must avoid any twisting/pivoting through the fracture until at least 11/23/2022. Subjective:? Happy with being able to propel self on wheelchair. Agreeable to trial squat pivot transfer today. Objective: General inspection:? Swollen and discolored area on the middle third of the R leg is continuing to lighten and subside. Seated on chair.? Brar catheter in place.? ? 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 KI not in place,? pillow placed under knee.? Flexible plantarflexion contracture in B sides noted. Mental Status: Alert and oriented as to person and place.? Some mental lapses noted throughout session,? question short-term memory loss.? Bed Mobility/Transfers: Bedside chair to wheelchair with minimal assist of 2 using squat pivot transfer Wheelchair to bedside commode transfer minimal assist of 2 Bedside commode to wheelchair maximal assist of 2 due to fatigue Gait:? Unable, patient is wheelchair-bound Balance: Static Sitting: Fair Dynamic Sitting: Fair Static Standing: Poor Dynamic Standing: Unable NEURO RE-ED: 1) Trunk flexion/extension while pulling from front edge of chair armrest x 10 2) Heel slides x 10 on R/L able to bend at the knee about 10 degrees on L, 5 degrees on R with AAROM by PT 3) Chair push ups x 10 4) Gluteal sets x 10 5) Rythmic stabilization for trunk flexors ASSESSMENT: Baseline mobility level was squat-pivot transfer with the L LE leading as the L side had been stronger than the R.? Due to weight bearing precautions,? this has been presenting a challenge for the patient and will require longer time to functionally improve.? Unable to fully extend trunk and hips during attempt at standing today.? Will need additional exercises to increase trunk/hip extensor strength.? May bend L knee during transfer as of 10/24/2022.?? Improving ability to push onto bed and elevate pelvis to scoot forward and sit down while maintaining trunk extension improving.? Spasticity less in the L leg today.? Developing plantarflexion contracture seen,? continue with positioning regimen to minimize PF ctx progression.? Positioning recommendations in bed and while seated on chair: Continue with ensuring dorsiflexion to neutral in B ankles by placing folded pillow(s) while in bed.? Use blue heels up device placed on blue chair to push B feet into dorsiflexion while seated on bedside recliner. DISCHARGE RECOMMENDATIONS: [] ? Home with no services [] [] ? Home with services [] [] ? Home with outpatient PT [] [X] ? SNF for continued rehabilitation.? Patient will benefit from [facility] facility placement for continued skilled physical therapy services in order to progress mobility level, strength, and balance in preparation for a safe discharge to home. [] ? Mechanical Applications Engineer Care [] [X] ? SNF versus LTC based on ability to participate and progress?[] []??SNF vs.? PT based on progress towards goals EQUIPMENT NEEDS: Wheelchair with elevating leg rests,? break exrtension on the L, swing-away arm rests,? anti-tippers,? toggled hand rims,? 2-inch gel cushion, feet positioners (attachment) TREATMENT CODE/TIME: 03540 x 64 minute beginning at 9:56 AM and for 10 inutes beginning at 11:40 AM.
--- NOTE | 2022-11-11 12:28 | PGE_ITS ---
Date of Service Date of service: 11/11/22 Time of Service: 12:28 Assessment and Plan Assessment and plan (1) Closed fracture of left distal femur: Status: Acute Assessment and plan: 67 year old female almost 7 weeks status post Left intra-articular minimally displaced distal femur fracture on 09/25/22. Repeat left knee x-rays done 11/07/2022 show moderate healing/callus formation, maintained alignment of extra-articular and intra-articular fracture fragments, and extensive bone demineralization. New rehab guidelines? Okay to progress to full range of motion, both active and passive.? Gradually progress from partial <50% weight bearing to full WBAT over the next 2 weeks for stance and ambulation - must avoid any twisting/pivoting through the fracture until at least 11/23/2022. Okay to wean out of the knee immobilizer as comfort allows. Next x-rays ordered 11/22/2022. Subjective Subjective Interval history since last seen: Patient reports that she has been able to put some weight on her leg without much discomfort. Has been keeping the knee immobilizer on during weightbearing. She reports that she has had some aching pain in her distal femur at night. Just started get into wheelchair today. Exam Extrem Other: Patient sitting upright in wheelchair with left knee resting comfortably at approximately 90 degrees. No lesions, deformity, or ecchymosis. Demonstrates approximately 60-90 degrees of active knee motion. Tolerates approximately 10- 100 degrees of passive motion with moderate discomfort at end-range flexion. Able to maintain straight leg raise. Objective Last Vital Signs Temp 97.2 F L 11/11/22 07:17 Pulse 74 11/11/22 07:17 Resp 14 11/11/22 07:17 BP 100/52 L 11/11/22 07:17 Pulse Ox 94 11/11/22 07:17 Time Spent with Patient Time Spent with Patient: <25 minutes Time was spent: preparing to see the patient(eg.review tests), obtaining and/or reviewing separately otained hiistory, ordering medications,tests, procedures, referring, communicating with other health manager intensive care, indepentently interpreting results and counseling the patient
--- NOTE | 2022-11-11 12:49 | W.PM.PROGNOT ---
Date of Service Date of service: 11/11/22 Time of Service: 12:49 Assessment and Plan Assessment and plan (1) Closed fracture of left distal femur: Status: Acute Assessment and plan: Continues to tolerate increased activity well. Was seen by orthopedics today with following new guidelines: okay to progress to full range of motion, both active and passive.? Gradually progress from partial <50% weight bearing to full WBAT over the next 2 weeks for stance and ambulation - must avoid any twisting/pivoting through the fracture until at least 11/23/2022. Okay to weight bear out of the knee immobilizer when comfortable. Next x-rays ordered 11/22/2022. (2) Hypertension: Status: Chronic Assessment and plan: blood pressures Remain stable but on the low side she is asymptomatic continue to monitor blood pressure and adjust meds as needed. (3) Myasthenia gravis: Status: Chronic Assessment and plan: Stable and at baseline Continue outpatient medical therapy (4) Spinal stenosis: Assessment and plan: With chronic pain - Physical therapy (5) GERD (gastroesophageal reflux disease): Status: Chronic Assessment and plan: Continue PPI. (6) Neurogenic bladder: Status: Chronic Assessment and plan: suprapubic catheter In place (7) Pain: Status: Acute Assessment and plan: Continue Fentanyl patch 100 mcg change every 72 Dilaudid oral PRN apap scheduled Spasm - Flexaril 10 mg daily and @ HS (8) Constipation, chronic: Status: Chronic Assessment and plan: continue bowel regimen and prn relistor as needed (9) DVT prophylaxis: Status: Acute Assessment and plan: Enoxaparin 40 mg sc (10) Discharge planning issues: Status: Acute Assessment and plan: Continue physical therapy and advanced activity recommendations per orthopedics. Case management is following for discharge planning and referrals have been placed and are pending Discussed with Dr Hsieh Subjective Subjective Patient reports: no new complaints, pain is less, tolerating liquids well, tolerating a regular diet, voiding w/o difficulty (has chronic indwelling gomes catheter, draining well), bowel movement (last BM yesterday, has been constipated) and afebrile; denies nausea or shortness of breath Exam Narrative Exam Narrative: Elderly female of stated age sitting in the wheelchair skin is pink warm dry well-perfused she is in no acute distress Her head is atraumatic oral mucosa is moist there is no exudate Neck supple with no JVD Respirations are even and unlabored Cardiovascular regular rate with good distal pulses Abdomen soft and benign Gomes catheter to gravity drainage draining medium yellow urine Sitting in the wheelchair with both legs bent at about 90 degrees. Her left leg is greater than her right leg at the knee there is no erythema. Objective Last Vital Signs Temp 36.2 C L 11/11/22 07:17 Pulse 74 11/11/22 07:17 Resp 14 11/11/22 07:17 BP 100/52 L 11/11/22 07:17 Pulse Ox 94 11/11/22 07:17 Time Spent with Patient Time Spent with Patient: 25-34 minutes Time was spent: preparing to see the patient(eg.review tests), obtaining and/or reviewing separately otained hiistory and care coordination
--- NOTE | 2022-11-11 14:36 | PT.INTREAT ---
Date of service: 11/11/22 Time of Service: 13:30 PT Notes Visit Reasons: [facility] Inpatient Physical Therapy Treatment Note [facility] Date: 11/11/2022 PRECAUTIONS: PWB L, Activity as tolerated, Fall SUBJECTIVE: Missy is tired and reportedly would like to get back into bed. OBJECTIVE: PAIN: No c/o pain BED MOBILITY/TRANSFERS Sit-stand: Mod A + Min A Stand-sit: Mod A + Min A Chair-bed: Squat-pivot transfer with Mod A + Min A ASSESSMENT: Patient tolerated transfer well, without complaint. She requires Mod A + Min A for squat-pivot transfer from wheelchair to bed. PLAN: Continue progression toward functional goals set by primary PT. TREATMENT CODE/TIME: 15 minutes; 04214 (13:30)
[2022-11-11] MEDS: HYDROmorphone 2 MG TAB PO ×2 (16:01→20:25)
[2022-11-11] MEDS: Cyclobenzaprine 10 MG TAB PO (20:24)
[2022-11-11] MEDS: Lidocaine 5% Patch 1 PATCH TP (20:25)
[2022-11-11] MEDS: Zolpidem 5 MG TAB 10 MG PO (20:25)
[2022-11-11] MEDS: Docusate Sodium 100 MG CAP PO (20:25)
[2022-11-11] MEDS: Polyethylene Glycol 3350 17 GM PACKET PO (20:27)
[2022-11-11] MEDS: Methylnaltrexone 12 MG/0.6 ML VIAL SC (20:27)
[2022-11-11] MEDS: Ketorolac 10 MG TAB PO (21:58)
[2022-11-12 07:24] VITALS: BP 104/57; PULSE 77; RESP 16; TEMP 36.5; O2SAT 96
[2022-11-12] MEDS: Nystatin POWDER 15 GM JAR TP ×3 (09:15→20:35)
[2022-11-12] MEDS: Polyethylene Glycol 3350 17 GM PACKET PO ×2 (09:15→20:33)
[2022-11-12] MEDS: Collagenase 30 GM TUBE TP (09:15)
[2022-11-12] MEDS: Enoxaparin 40 MG/0.4 ML SYR SC (09:15)
[2022-11-12] MEDS: Pantoprazole 40 MG TABCR PO (09:18)
[2022-11-12] MEDS: Acetylcysteine 600 MG CAP 1200 MG PO ×2 (09:18→20:35)
[2022-11-12] MEDS: Metoprolol 12.5 MG TAB PO ×2 (09:18→20:34)
[2022-11-12] MEDS: Folic Acid 1 MG TAB PO (09:18)
[2022-11-12] MEDS: Acetaminophen 325 MG TAB 650 MG PO ×4 (09:19→20:34)
[2022-11-12] MEDS: amLODIPine 2.5 MG TAB PO (09:19)
[2022-11-12] MEDS: diazePAM 2 MG TAB PO ×4 (09:19→20:34)
[2022-11-12] MEDS: Docusate Sodium 100 MG CAP PO ×3 (09:19→20:34)
[2022-11-12] MEDS: Lisinopril 10 MG TAB PO (09:19)
[2022-11-12] MEDS: Gabapentin 300 MG CAP PO ×2 (09:19→20:34)
[2022-11-12] MEDS: Lidocaine Patch Removal 1 EACH TP (11:49)
--- NOTE | 2022-11-12 12:16 | PGE_ITS ---
Date of Service Date of service: 11/08/22 Time of Service: 12:16 Assessment and Plan Assessment and plan (1) Closed fracture of left distal femur: Status: Acute Assessment and plan: Continues to tolerate increased non weight bearing activity well. (2) Hypertension: Status: Chronic Assessment and plan: blood pressures Remain stable but on the low side she is asymptomatic continue to monitor blood pressure and adjust meds as needed. (3) Myasthenia gravis: Status: Chronic Assessment and plan: Stable and at baseline Continue outpatient medical therapy (4) Spinal stenosis: Assessment and plan: With chronic pain - Physical therapy (5) GERD (gastroesophageal reflux disease): Status: Chronic Assessment and plan: Continue PPI. (6) Neurogenic bladder: Status: Chronic Assessment and plan: suprapubic catheter In place (7) Pain: Status: Acute Assessment and plan: Continue Fentanyl patch 100 mcg change every 72 Dilaudid oral PRN, wean down apap scheduled Spasm - Flexaril 10 mg daily and @ HS (8) Constipation, chronic: Status: Chronic Assessment and plan: continue bowel regimen and prn relistor as needed (9) DVT prophylaxis: Status: Acute Assessment and plan: Enoxaparin 40 mg sc (10) Discharge planning issues: Status: Acute Assessment and plan: Continue physical therapy and advanced activity recommendations per orthopedics. Case management is following for discharge planning and referrals have been placed and are pending Discussed with Dr Landeros Subjective Subjective Patient reports: no new complaints, still having pain, pain is less, tolerating a regular diet, bowel movement (however small and hard) and afebrile Interval history since last seen: Stas is concerned about going home, she has been here for 6 weeks and is feeling that she has been well taken care of and she is concerned if she goes home she will decline, she is sad about the thought of it. Care mgrs have out in referrals and are awaiting PA. Exam Narrative Exam Narrative: Elderly female of stated age, skin is pink warm dry well-perfused she is in no acute distress Her head is atraumatic oral mucosa is moist there is no exudate Neck supple with no JVD Respirations are even and unlabored Cardiovascular regular rate with good distal pulses Abdomen soft and benign Brar catheter to gravity drainage draining medium yellow urine Sitting on the bed, semi fowelers on back. Objective Last Vital Signs Temp 36.5 C 11/12/22 07:24 Pulse 77 11/12/22 07:24 Resp 16 11/12/22 07:24 BP 104/57 L 11/12/22 07:24 Pulse Ox 96 11/12/22 07:24 Time Spent with Patient Time Spent with Patient: <25 minutes Time was spent: preparing to see the patient(eg.review tests), ordering medications,tests, procedures, referring, communicating with other health wild animal caretaker, indepentently interpreting results, counseling the patient and care coordination
[2022-11-12] MEDS: HYDROmorphone 2 MG TAB PO ×3 (12:36→20:34)
--- NOTE | 2022-11-12 14:33 | PT.INTREAT ---
Date of service: 11/12/22 Time of Service: 10:13 PT Notes Visit Reasons: [facility] Inpatient Physical Therapy Treatment Note [facility] Date: 11/12/2022 PRECAUTIONS: PWB L, Activity as tolerated, Fall SUBJECTIVE: Missy reports that she is feeling depressed today. She reports that she is not having pain with transfers, however is a little sore from increased activity. OBJECTIVE: PAIN: No c/o pain BED MOBILITY/TRANSFERS Sit-stand: Mod A + Min A Stand-sit: Mod A + Min A Commode-wheelchair: Squat-pivot transfer with Mod A + Min A THEREX: Patient was instructed in a global strengthening program, completed while seated in the wheelchair, to include: ankle pumps, LAQ and hip flexion, all with assist due to weakness, as well as punch-ups with 1# DB, bicep curls with 1# DB, punch outs with abdominals engaged with 1#DB and diagonal punches with abdominals engaged with 1# DB. WHEELCHAIR MOBILITY: Patient demonstrates independence with self-propulsion x400', with the ability to navigate turns, and proper use of wheel locks. ASSESSMENT: Patient tolerated session well, without complaint. She requires Mod A + Min A for squat-pivot transfer from commode to wheelchair. PLAN: Continue progression toward functional goals set by primary PT. TREATMENT CODE/TIME: 30 minutes; 40695, [id number] (10:13)
--- NOTE | 2022-11-12 16:45 | CHAPLAIN ---
Brenna from PT told me this morning that Missy as feeling sad today. When I visited this afternoon, she was up in the chair. She said the pain in her leg has increased lately and she'd received mail from her landlord (she lives at the [facility]) worried about her rent even though she always pays her rent on time. So things were piling up on her today. I asked who she can confide in or speak with when she's not feeling her best and she told me that she wouldn't call her brother, but maybe her sister in law. Then she came up with her niece who is a [employer] BO[employer] RUNNER, lives in [place] and has a toddler. She said she has called in niece from here before so she knows how to use her room phone for long distance calls. I encouraged Missy to call her niece this weekend. And to also let staff know when her pain is increasing. According to Care Management, Missy may go to the [facility] as earlier as Tuesday (11/15).
[2022-11-12] MEDS: Lidocaine 5% Patch 1 PATCH TP (20:33)
[2022-11-12] MEDS: Zolpidem 5 MG TAB 10 MG PO (20:34)
[2022-11-12] MEDS: Cyclobenzaprine 10 MG TAB PO (20:34)
[2022-11-13 06:40] VITALS: BP 100/60; PULSE 76; RESP 16; TEMP 36.4; O2SAT 91
[2022-11-13] MEDS: Metoprolol 12.5 MG TAB PO ×2 (08:21→19:38)
[2022-11-13] MEDS: Folic Acid 1 MG TAB PO (08:21)
[2022-11-13] MEDS: Acetylcysteine 600 MG CAP 1200 MG PO ×2 (08:21→19:38)
[2022-11-13] MEDS: Enoxaparin 40 MG/0.4 ML SYR SC (08:21)
[2022-11-13] MEDS: Docusate Sodium 100 MG CAP PO ×3 (08:21→19:39)
[2022-11-13] MEDS: Gabapentin 300 MG CAP PO ×2 (08:22→19:39)
[2022-11-13] MEDS: HYDROmorphone 2 MG TAB PO ×2 (08:22→19:39)
[2022-11-13] MEDS: Nystatin POWDER 15 GM JAR TP ×3 (08:22→19:41)
[2022-11-13] MEDS: Lisinopril 10 MG TAB PO (08:22)
[2022-11-13] MEDS: Collagenase 30 GM TUBE TP (08:22)
[2022-11-13] MEDS: diazePAM 2 MG TAB PO ×4 (08:22→19:39)
[2022-11-13] MEDS: Pantoprazole 40 MG TABCR PO (08:22)
[2022-11-13] MEDS: amLODIPine 2.5 MG TAB PO (08:22)
[2022-11-13] MEDS: Acetaminophen 325 MG TAB 650 MG PO ×4 (08:22→19:39)
[2022-11-13] MEDS: Polyethylene Glycol 3350 17 GM PACKET PO ×2 (08:23→21:51)
[2022-11-13] MEDS: fentaNYL 100 MCG PATCH TD (11:53)
[2022-11-13] MEDS: Lidocaine Patch Removal 1 EACH TP (13:09)
[2022-11-13] MEDS: Cyclobenzaprine 10 MG TAB PO (21:49)
[2022-11-13] MEDS: Zolpidem 5 MG TAB 10 MG PO (21:49)
[2022-11-13] MEDS: Lidocaine 5% Patch 1 PATCH TP (21:50)
[2022-11-14] MEDS: HYDROmorphone 2 MG TAB PO ×2 (01:51→20:12)
[2022-11-14 07:46] VITALS: BP 115/73; PULSE 85; RESP 16; TEMP 36.8; O2SAT 91
[2022-11-14] MEDS: Acetylcysteine 600 MG CAP 1200 MG PO ×2 (08:37→20:11)
[2022-11-14] MEDS: Gabapentin 300 MG CAP PO ×2 (08:37→20:11)
[2022-11-14] MEDS: Pantoprazole 40 MG TABCR PO (08:37)
[2022-11-14] MEDS: Folic Acid 1 MG TAB PO (08:37)
[2022-11-14] MEDS: Docusate Sodium 100 MG CAP PO ×3 (08:37→20:11)
[2022-11-14] MEDS: Metoprolol 12.5 MG TAB PO ×2 (08:37→20:11)
[2022-11-14] MEDS: amLODIPine 2.5 MG TAB PO (08:37)
[2022-11-14] MEDS: Polyethylene Glycol 3350 17 GM PACKET PO ×2 (08:38→20:12)
[2022-11-14] MEDS: diazePAM 2 MG TAB PO ×4 (08:38→20:11)
[2022-11-14] MEDS: Enoxaparin 40 MG/0.4 ML SYR SC (08:38)
[2022-11-14] MEDS: Collagenase 30 GM TUBE TP (08:38)
[2022-11-14] MEDS: Nystatin POWDER 15 GM JAR TP ×3 (08:38→20:11)
[2022-11-14] MEDS: Lisinopril 10 MG TAB PO (08:38)
[2022-11-14] MEDS: Acetaminophen 325 MG TAB 650 MG PO ×4 (08:38→20:11)
[2022-11-14] MEDS: Cyclobenzaprine 10 MG TAB PO (20:16)
[2022-11-14] MEDS: Lidocaine 5% Patch 1 PATCH TP (20:16)
[2022-11-14] MEDS: Zolpidem 5 MG TAB 10 MG PO (20:16)
[2022-11-15 06:21] VITALS: BP 107/70; PULSE 69; RESP 16; TEMP 36.3; O2SAT 94
[2022-11-15] MEDS: Acetaminophen 325 MG TAB 650 MG PO ×4 (08:45→20:14)
[2022-11-15] MEDS: Metoprolol 12.5 MG TAB PO ×2 (08:45→20:14)
[2022-11-15] MEDS: Gabapentin 300 MG CAP PO ×2 (08:46→20:14)
[2022-11-15] MEDS: Lisinopril 10 MG TAB PO (08:46)
[2022-11-15] MEDS: Folic Acid 1 MG TAB PO (08:46)
[2022-11-15] MEDS: amLODIPine 2.5 MG TAB PO (08:46)
[2022-11-15] MEDS: Pantoprazole 40 MG TABCR PO (08:46)
[2022-11-15] MEDS: Acetylcysteine 600 MG CAP 1200 MG PO ×2 (08:46→20:13)
[2022-11-15] MEDS: diazePAM 2 MG TAB PO ×4 (08:46→20:13)
[2022-11-15] MEDS: Enoxaparin 40 MG/0.4 ML SYR SC (08:46)
[2022-11-15] MEDS: Docusate Sodium 100 MG CAP PO ×2 (08:46→14:59)
[2022-11-15] MEDS: Collagenase 30 GM TUBE TP (08:46)
[2022-11-15] MEDS: Nystatin POWDER 15 GM JAR TP ×3 (08:47→20:13)
[2022-11-15] MEDS: Polyethylene Glycol 3350 17 GM PACKET PO (09:10)
[2022-11-15] MEDS: Lidocaine Patch Removal 1 EACH TP (09:58)
--- NOTE | 2022-11-15 13:46 | PDOC.CMPRO ---
- If Service Date Differs Date of service: 11/15/22 Time of Service: 13:46 Care Management Progress Note TOMMY met with Missy today. Per her report, she is very depressed. She stated I feel useless. She also shared that she feels she has become one of those patients that staff consider a burden. Her perception is that she is a bother to everyone. Missy shared that she has suffered from depression in the past but not this bad. She stated that she has tried various medications but that none of them work. At her request, TOMMY reached out to her palliative Care provider Jennifer and to her therapist Pattie cabral and left a message for both.
--- NOTE | 2022-11-15 17:23 | INPN_ITS ---
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 wheelchair-bound.? Per Dr. Up's progress note on 10/06/2022:? 1) May start knee range of motion after 10/23/2022 and weight bearing around 11/06/22-11/20/22.? 2) NWB on the L LE with AD until 11/05/2022.? Per Dr. Up's note on 09/26/2022: 1) Keep L knee in extension using knee immobilizer when OOB, no pillow under knee at any time until 10/24/2022. Subjective:? Feels that she is a burden to everybody here. Teary-eyed at start of session but agreeable to proceed with treatment. Does not feel that she is improving. Feels that she is stupid. Unsure of whether she can do too much today. Asking if she can use the commode before she goes to bed. Objective: General inspection:? Seated on wheelchair.? Brar catheter in place.? ? 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 Flexible plantarflexion contracture in B sides noted. Mental Status: Alert.? Appears sad. Guilty about the burden of care she has on other people. ROM: Right Upper Extremity: ? Shoulder Flexion WFL. Shoulder abduction WFL. Elbow flexion WFL. Wrist flexion WFL. Functional opening and closing of hand limited Left Upper Extremity:? Shoulder Flexion WFL. Shoulder abduction WFL. Elbow flexion WFL. Wrist flexion WFL. Awkard opening and closing of hand WFL. Right Lower Extremity: Hip flexion allows up to 60 degrees. Hip abduction 25 degrees. Knee flexion up to 90 degrees passively. Ankle dorsiflexion -45. Ankle plantarflexion contracture to about 45 degrees. Left Lower Extremity: HIp and knee flexion less than 10 degrees actively with pain reported.? Active ankle DF to about 5 degees only from a fully platarflexed position. Strength: Right Upper Extremity: Shoulder flexors 4/5. Shoulder abductors 4/5. Elbow flexors 4-/5. Elbow extensors 4/5. Annealer Helper weak but functional Left Upper Extremity: Shoulder flexors 4-/5. Shoulder abductors 4-/5. Elbow flexors 3+/5. Elbow extensors 4-/5. Annealer Helper weak ? functional Right Lower Extremity: Hip flexors 3-/5. Hip abductors 2-/5. Knee flexors 3-/5. Knee extensors 3-/5. Ankle dorsiflexors 1/5. Ankle plantarflexors 2-/5. Left Lower Extremity: Hip NT.? Knee NT. Ankle 1/5. Sensation:? Intact as to pain,? impaired as to light touch in B LE Bed Mobility/Transfers: Sit to stand? stand by assist from wheelchair with KI on L LE using STEDY lift Stand to sit on bedside commode contact guard assist with KI on L LE using STEDY lift Gait:? Unable, patient is wheelchair-bound. Balance: Static Sitting: Fair Dynamic Sitting: Fair Static Standing: Poor Dynamic Standing: Unable THERA EX: Sit to stand x 4 using STEDY lift ASSESSMENT: Progressing slowly towards goals with co-morbidities of signs of depression, declining cognitive level, and myasthenia gravis, spinal stenosis, and peripheral neuropahty of B legs. May need psych consult and or palliative consult to address declining cognitive and emotional well-being and to determine overall trajectory of care. May benefit from neurologic consult to address interplay of month-long weight bearing precaution with myasthenia gravis. Will still need SNF palcement for continued rehabilitation or LTC placement. Patient presents with clinical signs and symptoms consistent with current/admitting diagnoses that have resulted to mobility limitations, gait instability, generalized weakness, and overall ADL decline as demonstrated by the following impairment level findings: 1.? Decreased strength to B UE/LE? major muscle groups 2.? Impaired sitting balance but imporved from the last progress note done 3.? WB precuation: NWB L LE until 11/05/2022 4.? Limitation of joint range of motion in L hand, B UE joints 5.? Pain in L UE 6.? Intermittent spasms in B LE with L<<R (resolved) 7.? Beginning flexible plantarflexion contracture in B ankles Impairments are contributing to the following functional limitations: 1.? Decline in bed mobility skills 2.? Decline in transfer skills 3.? Wheelchair-bound 4.? Increased completion time for mobility ADL performance 5.? Increased risk for falls 6.? Increased risk for skin breakdown/infection Goals: Goals X1 week 1. Supine-Sit? modified independent.?NOT MET, CONTINUE. 2. Sit-Supine? contact guard assist,?NOT MET. CONTINUE. 3. Sit-squat assist of 2 or less with set up assist,??NOT MET, CONTINUE 4.? Patient will maintain static standing with NWB in L LE for about 5 minutes inside parallel bars or with use of FWW?NOT MET, CONTINUE 5.? Patient will perform stand pivot transfers using FWW with minimla assist of 2.? NEW GOAL OF 11/08/22. Plan of Care/Treatment Plan: 1/day, 5 days/week x 2 weeks. Plan of care has been reviewed with the TOOL/DIE MAKER providing the service under Physical Therapy direction. Initiate Physical Therapy intervention for strengthening, bed mobility, transfers, gait,? balance training, use of assistive device for transfers into w/c. DISCHARGE RECOMMENDATIONS: [] ? Home with no services [] [] ? Home with services [] [] ? Home with outpatient PT [] [X] ? SNF for continued rehabilitation.? Patient will benefit from [facility] facility placement for continued skilled physical therapy services in order to progress mobility level, strength, and balance in preparation for a safe discharge to home. [] ? Intermediate Care [] [X] ? SNF versus LTC based on ability to participate and progress?[] []??SNF vs.? PT based on progress towards goals TREATMENT CODE/TIME: 06080 x 23 minutes beginning at 12:39 PM. Thank you for the opportunity to participate in the care of this patient. Ching Viveros PT, DPT, CLT [facility] [place], [place]
--- NOTE | 2022-11-15 17:40 | PT.INDS ---
Date of service: 11/15/22 PT Notes Visit Reasons: [facility] Physical Therapy Inpatient Discharge Summary Date: 11/15/2022 Dates of Service: 10/03/2022 through 11/15/2022 This is a clinical summary of care provided for the duration of dates listed above. No charge was made in the completion of this documentation. 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 wheelchair-bound.? Per Dr. Up's progress note on 10/06/2022:? 1) May start knee range of motion after 10/23/2022 and weight bearing around 11/06/22-11/20/22.? 2) NWB on the L LE with AD until 11/05/2022.? Per Dr. Up's note on 09/26/2022: 1) Keep L knee in extension using knee immobilizer when OOB, no pillow under knee at any time until 10/24/2022. Subjective:? NT. See most recent ICE CREAM SHOP ASSOCIATE notes. Objective: General inspection:? NT. See most recent ICE CREAM SHOP ASSOCIATE notes. Mental Status: NT. See most recent ICE CREAM SHOP ASSOCIATE notes. ROM: Right Upper Extremity: ? Shoulder Flexion WFL. Shoulder abduction WFL. Elbow flexion WFL. Wrist flexion WFL. Functional opening and closing of hand limited Left Upper Extremity:? Shoulder Flexion WFL. Shoulder abduction WFL. Elbow flexion WFL. Wrist flexion WFL. Awkard opening and closing of hand WFL. Right Lower Extremity: Hip flexion allows up to 60 degrees. Hip abduction 25 degrees. Knee flexion up to 90 degrees passively. Ankle dorsiflexion -45. Ankle plantarflexion contracture to about 45 degrees. Left Lower Extremity: HIp and knee flexion less than 10 degrees actively with pain reported.? Active ankle DF to about 5 degees only from a fully platarflexed position. Strength: Right Upper Extremity: Shoulder flexors 4/5. Shoulder abductors 4/5. Elbow flexors 4-/5. Elbow extensors 4/5. Education Technician weak but functional Left Upper Extremity: Shoulder flexors 4-/5. Shoulder abductors 4-/5. Elbow flexors 3+/5. Elbow extensors 4-/5. Education Technician weak ? functional Right Lower Extremity: Hip flexors 3-/5. Hip abductors 2-/5. Knee flexors 3-/5. Knee extensors 3-/5. Ankle dorsiflexors 1/5. Ankle plantarflexors 2-/5. Left Lower Extremity: Hip NT.? Knee NT. Ankle 1/5. Sensation:? Intact as to pain,? impaired as to light touch in B LE Bed Mobility/Transfers: Sit to stand? stand by assist from wheelchair with KI on L LE using STEDY lift Stand to sit on bedside commode contact guard assist with KI on L LE using STEDY lift Gait:? Unable, patient is wheelchair-bound. Balance: Static Sitting: Fair Dynamic Sitting: Fair Static Standing: Poor Dynamic Standing: Unable ASSESSMENT: Progressing slowly towards goals with co-morbidities of signs of depression,? declining cognitive level,? and myasthenia gravis,? spinal stenosis, and peripheral neuropahty of B legs.? May need psych consult and or palliative consult to address declining cognitive and emotional well-being and to determine overall trajectory of care.? May benefit from neurologic consult to address interplay of month-long weight bearing precaution with myasthenia gravis.? Will still need SNF palcement for continued rehabilitation or LTC placement. Patient presents with clinical signs and symptoms consistent with current/admitting diagnoses that have resulted to mobility limitations, gait instability, generalized weakness, and overall ADL decline as demonstrated by the following impairment level findings: 1.? Decreased strength to B UE/LE? major muscle groups 2.? Impaired sitting balance but imporved from the last progress note done 3.? WB precuation: NWB L LE until 11/05/2022 4.? Limitation of joint range of motion in L hand, B UE joints 5.? Pain in L UE 6.? Intermittent spasms in B LE with L<<R (resolved) 7.? Beginning flexible plantarflexion contracture in B ankles Impairments are contributing to the following functional limitations: 1.? Decline in bed mobility skills 2.? Decline in transfer skills 3.? Wheelchair-bound 4.? Increased completion time for mobility ADL performance 5.? Increased risk for falls 6.? Increased risk for skin breakdown/infection Goals: Goals X1 week 1. Supine-Sit? modified independent.?NOT MET 2. Sit-Supine? contact guard assist,?NOT MET 3. Sit-squat assist of 2 or less with set up assist,??NOT MET 4.? Patient will maintain static standing with NWB in L LE for about 5 minutes inside parallel bars or with use of FWW?NOT MET 5.? Patient will perform stand pivot transfers using FWW with minimla assist of 2.? NOT MET DISCHARGE RECOMMENDATIONS: [] ? Home with no services [] [] ? Home with services [] [] ? Home with outpatient PT [] [X] ? SNF for continued rehabilitation.? Patient will benefit from nursing home facility placement for continued skilled physical therapy services in order to progress mobility level, strength, and balance in preparation for a safe discharge to home. [] ? Sales Marketing Coordinator Care [] [X] ? SNF versus LTC based on ability to participate and progress?[] []??SNF vs.? PT based on progress towards goals TREATMENT CODE/TIME: MANDA Thank you for the opportunity to participate in the care of this patient. Ching Viveros PT, DPT, CLT [facility] [place], [place]
[2022-11-15] MEDS: HYDROmorphone 2 MG TAB PO (20:13)
[2022-11-15] MEDS: Cyclobenzaprine 10 MG TAB PO (20:14)
[2022-11-15] MEDS: Lidocaine 5% Patch 1 PATCH TP (20:14)
[2022-11-15] MEDS: Zolpidem 5 MG TAB 10 MG PO (20:14)
[2022-11-15] MEDS: Ketorolac 10 MG TAB PO (22:17)
[2022-11-15 23:28] VITALS: BP 125/80; PULSE 82; RESP 16; TEMP 36.1; O2SAT 99
[2022-11-16 06:21] LABS: Absolute Basophil Count 0.03 10^3/uL (0.0-0.2); Absolute Eosinophil Count 0.11 10^3/uL (0.0-0.7); Absolute Lymphocyte Count 1.31 10^3/uL (1.2-3.4); Absolute Monocyte Count 0.52 10^3/uL (0.1-0.8); Absolute Neutrophil Count 2.39 10^3/uL (1.2-6.7); Basophils % 0.7; Eosinophils % 2.5; HCT 33.8 % (36.0-46.0); HGB 10.8 g/dL (11.2-15.7); MCH 28.7 pg (27.0-33.0); MCV 90 fL (80-95); MPV 9.1 fL (8.0-11.0); Monocytes % 11.9; Neutrophils % 54.9; Platelet Count 258 10^3/uL (130-400); RBC 3.76 10^6/uL (3.93-5.22); RDW 13.7 % (11.7-14.6); RDW-SD 45.1 fL; WBC 4.36 10^3/uL (4.4-10.8)
[2022-11-16 06:43] LABS: Anion Gap 7.9 mmol/L (3-11); BUN 25 mg/dL (7-18); CO2 26.1 mmol/L (21.0-32.0); CREATININE 0.9 mg/dL (0.55-1.02); Calcium 9.5 mg/dL (8.5-10.1); Chloride 102 mmol/L (98-107); Estimated GFR 70.07 (mL/min/1.73m2); Glucose 85 mg/dL (74-106); Magnesium 2.1 mg/dL (1.8-2.4); Potassium 4.6 mmol/L (3.5-5.1); Sodium 136 mmol/L (136-145)
[2022-11-16 08:19] VITALS: BP 111/74; PULSE 97; RESP 16; TEMP 36.5; O2SAT 92
[2022-11-16] MEDS: Acetylcysteine 600 MG CAP 1200 MG PO (08:23)
[2022-11-16] MEDS: Acetaminophen 325 MG TAB 650 MG PO ×2 (08:23→11:57)
[2022-11-16] MEDS: Pantoprazole 40 MG TABCR PO (08:23)
[2022-11-16] MEDS: Gabapentin 300 MG CAP PO (08:24)
[2022-11-16] MEDS: Lisinopril 10 MG TAB PO (08:24)
[2022-11-16] MEDS: diazePAM 2 MG TAB PO ×2 (08:24→11:57)
[2022-11-16] MEDS: Folic Acid 1 MG TAB PO (08:25)
[2022-11-16] MEDS: Docusate Sodium 100 MG CAP PO (08:25)
[2022-11-16] MEDS: Metoprolol 12.5 MG TAB PO (08:25)
[2022-11-16] MEDS: amLODIPine 2.5 MG TAB PO (08:25)
[2022-11-16] MEDS: Polyethylene Glycol 3350 17 GM PACKET PO (08:25)
[2022-11-16] MEDS: Enoxaparin 40 MG/0.4 ML SYR SC (08:25)
[2022-11-16] MEDS: Nystatin POWDER 15 GM JAR TP (08:26)
[2022-11-16 09:39] LABS: Source Nasal/Nares
[2022-11-16] MEDS: Lidocaine Patch Removal 1 EACH TP (10:02)
[2022-11-16] MEDS: fentaNYL 100 MCG PATCH TD (10:02)
[2022-11-16 10:32] LABS: COVID-19 PCR Negative (Negative)
--- NOTE | 2022-11-16 10:34 | DSE_ITS ---
Date of service: 11/16/22 Time of Service: 10:34 DS: Diagnosis Discharge Diagnosis (1) Closed fracture of left distal femur: Status: Acute Asessment and Plan: Healing - advanced weight bearing with PT Aspirin 81 mg BID x 30d (2) Hypertension: Status: Chronic Asessment and Plan: Originally BP meds on admission Amlodipine 2.5 mg daily and Lisinopril 20 mg daily. Blood pressures continued to be very high and on 09/26 the provider increased Amlodipine to 5 mg daily, and added Metoprolol 25 mg twice a day. On 09/30 blood pressures now low with pain being controlled, doses changed to Amlodipine back to home dose 2.5 mg daily; Lisinopril decreased to 10 mg daily and Metoprolol decreased to 12.5mg twice a day. With those current doses - BP has been stable trending at 110s/70s mostly Recommend review (3) Myasthenia gravis: Status: Chronic Asessment and Plan: Stable (4) Spinal stenosis: Asessment and Plan: Stable (5) GERD (gastroesophageal reflux disease): Status: Chronic Asessment and Plan: Stable, continue Protonix (6) Neurogenic bladder: Status: Chronic Asessment and Plan: Suprapubic catheter - catheter changed today (7) Pain: Status: Acute Asessment and Plan: Controlled with Fentanyl patch 100 mcg/72h (8) Constipation, chronic: Status: Chronic Asessment and Plan: Stable with scheduled bowel meds Discharge Plan Disposition Patient Disposition: Long Term Facility(SNF) Condition: Fair Discharge Details Reason For Visit: Femur FX Admit Date/Time: 10/03/22 10:56 Admit Provider: Lucio Hsieh Attending Provider: Lucio Hsieh Primary Care Provider: Prashanth Jiang Hospital Course Hospital Course: This is a 67-year-old female patient on hospital day 52, who was brought to the [facility] ED on 09/25/2022 for pain in the left knee after a fall while pivoting from wheelchair to bed.? She has not walked for more than a year secondary to spinal stenosis. She does have a history of myasthenia gravis since she was in her 30s.? She also has chronic pain and is on fentanyl and takes Lasix daily for peripheral edema with no history of CHF, but only peripheral edema with her lack of use of her lower extremities, and no orthostasis or dizziness prompting fall.? She does have a history of frequent UTIs with neurogenic bladder. She has a suprapubic urinary catheter is in place; we did change that today prior to discharge.? This fall was simply from instability with transferring.? She is vague about her history and does not know why she lost use of her legs when questioned. In the ED she was found to have a closed non-displaced, slightly comminuted?fracture of the left distal femur and was placed in a knee brace for comfort.? Orthopedics was consulted and she was deemed not a candidate for surgery, therefore she remained hospitalized and was treated medically. She did not go to a rehab facility as she was not allowed to bear weight and was not being seen by PT at that time. She continued her chronic pain meds, with acute pain managed with oral medications, as well, as her other chronic medical therapy. She was non-weight bearing for about one month, and has now been working with PT. Repeat left knee x-rays done 11/07/2022 showed moderate healing/callus formation, maintained alignment of extra-articular and intra- articular fracture fragments, and extensive bone demineralization.? Orthopedics recommended progress to full range of motion, both active and passive.? Gradually progress from partial <50% weight bearing to full WBAT over the next 2 weeks for stance and ambulation - must avoid any twisting/pivoting through the fracture until at least 11/23/2022.? Okay to wean out of the knee immobilizer as comfort allows.? Next x-rays ordered 11/22/2022. She developed an open area on her right heal that was treated with Santyl and has completely healed. She is in agreement and willing to go to rehab, she might, if not improving, need LTC. ?She has complained of depression of late, however states she does not want to take any medication, she has tried that in the past and it has failed.? She feels defeated.? She has been in the hospital for a long time.? Recommend follow up regarding her mental health. Her med list was updated. Recommend weaning Valium and Flexaril. Her chronic fentanyl patch was increased to 100 mcg/72h. Her home blood pressure medications were increased initially, then when her pain was controlled they were decreased and should be reviewed. Labs on discharge are stable; Hemoglobin 10.8, Hematocrit 33.8, Potassium 4.6, Sodium 136, Magnesium 2.1, Bun 25, Creatinine 0.9. She is followed by Palliative care, she is DNR/DNI.? She is discharged stable to the [facility]. Home Meds and New Rx's Prescriptions: New polyethylene glycol 3350 17 gram Powder In Packet 17 g PO BID Qty: 0 0RF diazepam 2 mg Tablet 2 mg PO QID Qty: 0 0RF lisinopril 10 mg Tablet 10 mg PO DAILY Qty: 0 0RF docusate sodium [Colace] 100 mg Capsule 100 mg PO TID Qty: 0 0RF nystatin 100,000 unit/gram Powder 15 g topical TID Qty: 0 0RF metoprolol tartrate 25 mg Tablet 12.5 mg PO BID Qty: 0 0RF pyridostigmine bromide [Mestinon Timespan] 180 mg Tablet Extended Release 180 mg PO DAILY Qty: 0 0RF fentanyl 100 mcg/hr Patch 72 Hour 100 mcg transdermal Q72H Qty: 0 0RF zolpidem 5 mg Tablet 10 mg PO HS Qty: 0 0RF Continued sennosides 8.6 mg tablet 8.6 mg PO BID PRN Patient Comments: Pt reports not taking for @ 1 month acetaminophen 500 mg tablet 1,000 mg PO TID PRN PRN (Reason: pain) Qty: 90 0RF furosemide 20 mg tablet 20 mg PO DAILY Qty: 30 0RF cyclobenzaprine 10 mg tablet See Rx Instructions PO .COMPLEX Qty: 270 3RF Rx Instructions: orally 20mg HS with an additional 10mg once daily prn neck spasms; lidocaine 5 % adhesive patch,medicated See Rx Instructions .ROUTE .COMPLEX Qty: 30 5RF Dose Instruction: APPLY ONE PATCH TOPICALLY TO THE SKIN DIRECTED, 12 HOURS ON AND THEN 12 HOURS OFF Rx Instructions: APPLY ONE PATCH TOPICALLY TO THE SKIN DIRECTED, 12 HOURS ON AND THEN 12 HOURS OFF acetylcysteine 600 mg capsule 1,200 mg PO BID Qty: 120 3RF polyethylene glycol 3350 17 gram powder in packet 17 g PO DAILY ciclopirox 8 % solution 1 applic topical DAILY amlodipine 2.5 mg tablet 2.5 mg PO DAILY gabapentin 300 mg capsule See Rx Instructions .ROUTE .COMPLEX Qty: 450 3RF Dose Instruction: TAKE 2 CAPSULES BY MOUTH IN THE MORNING, 1 CAPSULE MIDDAY AND 2 CAPSULES AT BEDTIME. NO ABRUPT CESSATION Rx Instructions: Takes 200mg mid-day and 300mg at night NO ABRUPT CESSATION zolpidem [Ambien] 5 mg tablet 5 mg PO QHS PRN (Reason: insomnia) Qty: 30 5RF Rx Instructions: 1-2 tabs folic acid 1 mg Tablet 1 mg PO DAILY AM Qty: 30 0RF pantoprazole 40 mg tablet,delayed release (DR/EC) 40 mg PO DAILY Discontinued lisinopril 5 mg tablet 20 mg PO DAILY levofloxacin 750 mg tablet 750 mg PO DAILY 7 Days Qty: 7 0RF ondansetron 4 mg tablet,disintegrating 4 mg PO Q8H PRN (Reason: nausea and vomiting) Qty: 30 3RF Rx Instructions: doesn't take pyridostigmine bromide 180 mg tablet extended release See Rx Instructions .ROUTE .COMPLEX Qty: 90 3RF Dose Instruction: TAKE ONE TABLET BY MOUTH EVERY DAY Rx Instructions: TAKE ONE TABLET BY MOUTH EVERY DAY tizanidine 2 mg tablet 2 mg PO QHS PRN fentanyl 75 mcg/hr patch 72 hour 1 patch transdermal Q72H MDD 180 mme Qty: 10 0RF Discharge Instructions Instructions: Leg Fracture (DC), Weakness (GEN), Fall Prevention (GEN) Additional Instructions: Follow up with orthopedics Xray 11/22/2022 Stand Alone Forms: Nursing Discharge Form Referrals: Prashanth Jiang NP [Primary Care Provider] - (Follow up per [facility] ) Marcial Up MD [ [facility] STAFF PHYSICIAN] - Activity:: Activity as Tolerated Equipment/Supplies:: No Equipment Needed Diet:: As Tolerated Discharge Orders Discharge Orders: Discharge Order (Routine); Ordered 11/16/22 Ordered By: Julita Menendez DS: Summary Time Spent with Patient providing and/or coordinating discharge services: Greater than 30 minutes Status at Discharge Functional status at discharge: wheelchair bound Overall status at discharge: patient is progressing back to baseline Mental Status: mental status grossly normal Speech and Movement: speech and movement normal Mood: congruent mood Affect: normal affect Exam Narrative Exam Narrative: Elderly female of stated age, skin is pink warm dry well-perfused she is in no acute distress Her head is atraumatic oral mucosa is moist there is no exudate Neck supple with no JVD Respirations are even and unlabored Cardiovascular regular rate with good distal pulses Abdomen soft and benign Brar catheter to gravity drainage draining medium yellow urine Sitting on the bed, semi fowelers on back. Psych Mental Status: mental status grossly normal Speech and Movement: speech and movement normal Mood: congruent mood Affect: normal affect DS: Data Vitals/I&O Vitals and I&O: Vital Signs Temperature 36.5 C 11/16/22 08:19 Temperature Source Tympanic 11/16/22 08:19 Pulse 97 H 11/16/22 08:19 Pulse Rhythm Regular 11/15/22 23:08 Respiratory Rate 16 11/16/22 08:19 Respiratory Effort Normal, Non-Labored 11/15/22 23:08 Respiratory Depth Normal 11/15/22 23:08 Respiratory Pattern Normal 11/15/22 23:08 Blood Pressure 111/74 11/16/22 08:19 Pulse Oximetry 92 11/16/22 08:19 Oxygen Delivery Method Room Air 11/16/22 08:19 Oxygen Flow Rate 0 11/16/22 08:19 Pain Level 5 11/16/22 08:19 Comment Pt. denies pain at this time. 11/09/22 12:29 Intake & Output 11/15/22 11/15/22 11/16/22 11:59 23:59 11:59 Intake Total 360 / 360 Output Total 650 / 650 500 / 500 Balance -650 / -290 360 / -290 -500 / -500 Intake: Oral 360 / 360 Output: Urine 650 / 650 500 / 500 Other: Urine Color Yellow Yellow Urine Appearance Clear Clear Clear Stool Size Large Small Small Stool Characteristics Soft Formed Soft Data Completed and Pending Labs on day of discharge: Labs from last 24 hours 11/16/22 11/16/22 11/16/22 09:32 05:50 05:50 WBC 4.36 L RBC 3.76 L Hgb 10.8 L Hct 33.8 L MCV 90 MCH 28.7 MCHC 32.0 RDW 13.7 Plt Count 258 MPV 9.1 Immature Gran % 0.0 Neutrophils % 54.9 Lymphocytes % 30.0 Monocytes % 11.9 Eosinophils % 2.5 Basophils % 0.7 Nucleated RBC % 0.0 Absolute Neutrophils 2.39 Absolute Lymphocytes 1.31 Absolute Monocytes 0.52 Absolute Eosinophils 0.11 Absolute Basophils 0.03 Sodium 136 Potassium 4.6 Chloride 102 Carbon Dioxide 26.1 Anion Gap 7.9 BUN 25 H Creatinine 0.9 Est GFR (CKD-EPI 2020) 70.07 Glucose 85 Calcium 9.5 Magnesium 2.1 COVID-19 Source Nasal/Nares SARS-CoV-2 (PCR) Negative PFSH All Active Problems (Updated 10/18/22 @ 21:54 by Pavithra Bliss NP) Discharge planning issues (Acute) DVT prophylaxis (Acute) Ambulatory dysfunction (Acute) Hypertension (Chronic) GERD (gastroesophageal reflux disease) (Chronic) Myasthenia gravis (Chronic) Neuropathic pain of both legs (Chronic) Weakness (Acute) Pain (Acute) Frequent falls (Chronic) Constipation, chronic (Chronic) Neurogenic bladder (Chronic) Closed fracture of left distal femur (Acute 09/25/22) Medical History Acute hypokalemia Acute hyponatremia Alcohol abuse history of Anxiety Arachnoid cyst Asymptomatic microscopic hematuria Ataxia Atelectasis Bunion of unspecified foot Bursitis of left shoulder Carpal tunnel syndrome of left wrist Chronic pain Chronic renal insufficiency COPD (chronic obstructive pulmonary disease) Dental caries Depression DNI (do not intubate) DNR (do not resuscitate) Elevated troponin External bleeding hemorrhoids Fluid collection at surgical site Fluid collection at surgical site Former smoker Gastric ulcer Generalized weakness History of gluten intolerance History of lacunar cerebrovascular accident Hyperlipidemia Hypokalemia Hypomagnesemia Hypoxia Insomnia previous misuse of Ambien Intracranial arachnoid cyst Left arm weakness Left hand weakness Left shoulder pain Migraine headache without aura Neurogenic bowel Oropharyngeal dysphagia Palliative care patient Palliative care patient Peripheral neuropathy POLST (Physician Orders for Life-Sustaining Treatment) COLST completed 10/30/2020 with Jennifer Lugo, MAUREEN, DNR/DNI Prediabetes Prerenal azotemia Protein malnutrition Rupture of left proximal biceps tendon Spasticity Spinal stenosis Syrinx of spinal cord Starting at C3 and extending to T11 Tachycardia Ulnar neuropathy of left upper extremity Urinary frequency Urinary retention Urine abnormality UTI (urinary tract infection) Surgical History H/O craniotomy ; L cerebellar arachnoid cyst drain with shunt placement H/O esophagogastroduodenoscopy (~07/2021) 09/2021 H/O thymectomy S/P appendectomy S/P cystourethroscopy with dilation of urethral stricture S/P tonsillectomy Family History Mother , 90 Diabetes Hypertension Stroke Father , 73 Neuropathy Back problem Depression Heart disease Stroke Brother Myasthenia gravis Depression Maternal Grandfather , 80's Diabetes Paternal Grandfather , 50 Heart disease Maternal Grandmother , 80 No problems noted. Paternal Grandmother , 70 No problems noted. Social History Smoking/Tobacco Use Status: Former Tobacco Use tobacco type: cigarettes Quit D ate: 08/15/16 Tobacco: How many years used: 35 Smoking risk assessment performed?: Yes Alcohol Intake: former Drug use: Never Substance use type: does not use Household members: other Housing: [facility] Number of Children: 0 Pets and animals: No Current gender identity: female What type of physical activity do you participate in: none Seatbelt use: always Do you feel safe at home: Yes (Pt lives alone) Do you feel safe in your relationship?: Yes Time Spent with Patient Time Spent with Patient: <45 minutes Time was spent: preparing to see the patient(eg.review tests), ordering medications,tests, procedures, referring, communicating with other health critical care nurse, indepentently interpreting results, counseling the patient and care coordination
--- NOTE | 2022-11-16 11:21 | NUR.NOTE ---
Nursing Note: RN to RN report given to Brenna Polanco RN @ [facility]. Denied further questions.
[2022-11-16] MEDS: HYDROmorphone 2 MG TAB PO (11:57)
--- NOTE | 2022-11-16 13:34 | PDOC.CMDIS ---
- If Service Date Differs Date of service: 11/16/22 Time of Service: 13:35 LACE Index Scoring Tool - Questions: Length of Stay (in days): 14 or more Acuity (Admit via E.D.?): Yes Comorbidities: Connective Tissue Disease E.D. Visits: 4 - Answers: Total Score: 17 Risk of Readmission: High Risk Care Management Discharge Reason for Hospitalization: fractured femur Discharge Plan: Missy will be transferred to the [facility] for short term rehab prior to returning to her home at [facility]. She will transport via wheelchair van and follow up with the facility providers and plan of care. Patient/Family Education Needs: Review discharge instructions, limitations, follow up plan and discuss Ask Me Three. Services Needed at Discharge: Assisted Facility
== END 2022-11-16 13:02 | disposition skilled nursing facility (03) | DRG 560 ==
PROVIDERS: Internal Medicine; Nurse Practitioner Family; Admitting Provider Internal Medicine; PCP Nurse Practitioner Family; Visit Provider Internal Medicine
DX: S72.492D Other fracture of lower end of left femur, subsequent encounter for closed fracture with routine healing (principal); G95.0 Syringomyelia and syringobulbia; G70.00 Myasthenia gravis without (acute) exacerbation; K21.9 Gastro-esophageal reflux disease without esophagitis; M48.00 Spinal stenosis, site unspecified; N31.9 Neuromuscular dysfunction of bladder, unspecified; K59.09 Other constipation; R53.1 Weakness; R29.6 Repeated falls; G89.29 Other chronic pain; F41.9 Anxiety disorder, unspecified; G93.0 Cerebral cysts; K02.9 Dental caries, unspecified; Z66 Do not resuscitate; J44.9 Chronic obstructive pulmonary disease, unspecified; N18.9 Chronic kidney disease, unspecified; I12.9 Hypertensive chronic kidney disease with stage 1 through stage 4 chronic kidney disease, or unspecified chronic kidney disease; Z87.891 Personal history of nicotine dependence; R13.12 Dysphagia, oropharyngeal phase; G62.9 Polyneuropathy, unspecified; R73.03 Prediabetes; G43.109 Migraine with aura, not intractable, without status migrainosus; W18.39XD Other fall on same level, subsequent encounter; Z93.51 Cutaneous-vesicostomy status; L89.622 Pressure ulcer of left heel, stage 2
CPT/HCPCS: 36415; 80048; 87635; 97110; 97112; 97166; 97530; 99306; 99309; 99316; J1650; 73560; 81003; 81015; 83735; 85025; 85049; 86140; 87086; 99308; J3490

== ENCOUNTER 2022-11-23 18:29 | Outpatient (REF) | payer OTHER, SELFPAY ==
[2022-11-23 17:02] LABS: Abs Immature Grans 0.01 10^3/uL (0.0-0.06); Absolute Basophil Count 0.04 10^3/uL (0.0-0.2); Absolute Eosinophil Count 0.23 10^3/uL (0.0-0.7); Absolute Lymphocyte Count 1.34 10^3/uL (1.2-3.4); Absolute Monocyte Count 0.62 10^3/uL (0.1-0.8); Absolute Neutrophil Count 3.78 10^3/uL (1.2-6.7); Basophils % 0.7; Eosinophils % 3.8; HCT 40.1 % (36.0-46.0); HGB 12.3 g/dL (11.2-15.7); Immature Grans % 0.2; Lymphocytes % 22.3; MCH 28.5 pg (27.0-33.0); MCHC 30.7 % (32.0-36.0); MCV 93 fL (80-95); MPV 9.7 fL (8.0-11.0); Monocytes % 10.3; Neutrophils % 62.7; Platelet Count 353 10^3/uL (130-400); RBC 4.32 10^6/uL (3.93-5.22); RDW 13.3 % (11.7-14.6); RDW-SD 45.5 fL; WBC 6.02 10^3/uL (4.4-10.8)
[2022-11-23 17:19] LABS: Iron 41 ug/dL (50-170); Total Iron Binding Capacity 248 ug/dL (250-450); Transferrin Sat 17 % (15-50)
[2022-11-23 17:36] LABS: Hemoglobin A1C 5.2 % (<5.7)
[2022-11-23 17:41] LABS: Vitamin D 25 Total 21.8 ng/mL (30-100)
[2022-11-23 17:53] LABS: ALT 18 U/L (14-59); AST 14 U/L (15-37); Albumin 3.5 g/dL (3.4-5.0); Alkaline Phosphatase 137 U/L (46-116); Anion Gap 9.3 mmol/L (3-11); BUN 41 mg/dL (7-18); Bilirubin, Total 0.3 mg/dL (0.2-1.0); CO2 28.7 mmol/L (21.0-32.0); CREATININE 1.5 mg/dL (0.55-1.02); Calcium 9.4 mg/dL (8.5-10.1); Chloride 103 mmol/L (98-107); Estimated GFR 37.96 (mL/min/1.73m2); Ferritin 125 ng/mL (8-252); Folate > 20.0 ng/mL (8.6-20.0); Glucose 93 mg/dL (74-106); Potassium 4.2 mmol/L (3.5-5.1); Sodium 141 mmol/L (136-145); TSH (W/Ref FT4) 2.27 uIU/mL (0.36-3.74); Total Protein 7.3 g/dL (6.4-8.2); Vitamin B12 321 pg/mL (193-986)
[2022-11-23 19:28] LABS: NT-proBNP 144 pg/mL (<300)
== END 2022-11-23 18:30 | disposition home or self-care (01) ==
LOC: LBN 18:29
PROVIDERS: PCP Nurse Practitioner Family; Visit Provider Nurse Practitioner Gerontology
DX: Z00.00 Encounter for general adult medical examination without abnormal findings (principal); R68.89 Other general symptoms and signs
CPT/HCPCS: 80053; 82306; 82607; 82728; 82746; 83036; 83540; 83550; 83880; 84443; 85025

== ENCOUNTER → 2022-11-24 12:45 | Outpatient (BNVA) | payer OTHER, SELFPAY | PROVIDERS: PCP Nurse Practitioner Family; Visit Provider Psychiatry & Neurology Neurology | DX: G70.00 Myasthenia gravis without (acute) exacerbation (principal); G95.0 Syringomyelia and syringobulbia; G93.0 Cerebral cysts; G62.1 Alcoholic polyneuropathy; G47.00 Insomnia, unspecified; M25.512 Pain in left shoulder; G56.02 Carpal tunnel syndrome, left upper limb; G56.22 Lesion of ulnar nerve, left upper limb | CPT/HCPCS: 99214 ==

== ENCOUNTER 2022-12-01 14:21 | Outpatient (CLI) | payer OTHER, SELFPAY ==
--- NOTE | 2022-12-01 14:00 | DI.RAD_ITS ---
Exam(s) XR KNEE LT 2V AP,LAT EXAM: XR KNEE LT 2V AP,LAT CLINICAL HISTORY: left knee pain. TECHNIQUE: 2D digital imaging was performed of the left knee. Two images were obtained. AP and lat eral views were obtained. COMPARISON: CR,XR XR KNEE LT 2V AP,LAT from 11/07/2022 FINDINGS: BONES: There has been no change in alignment of the distal fibular fracture. There has developed so me callus formation about the fracture suggesting interval healing. No new fracture is seen. The taylor stephy are osteopenic. No bony destructive lesion is seen. JOINTS: The knee is normally aligned. No joint effusion is seen. SOFT TISSUE: Atherosclerosis. IMPRESSION: Stable distal femoral fracture. DATA REPOSITORY: RADIATION DOSE DELIVERED:
== END 2022-12-01 14:22 | disposition home or self-care (01) ==
LOC: DIORS 14:21
PROVIDERS: PCP Nurse Practitioner Family; Referring Provider Nurse Practitioner Family; Visit Provider Student in an Organized Health Care Education/Training Program
DX: S72.492D Other fracture of lower end of left femur, subsequent encounter for closed fracture with routine healing; W18.39XD Other fall on same level, subsequent encounter
CPT/HCPCS: 99213; 73560

== ENCOUNTER 2023-01-12 18:18 | Outpatient (REF) | payer OTHER, SELFPAY ==
[2023-01-12 19:35] LABS: Vitamin D 25 Total 32.3 ng/mL (30-100)
[2023-01-12 19:37] LABS: Vitamin B12 298 pg/mL (193-986)
== END 2023-01-12 18:19 | disposition home or self-care (01) ==
LOC: LBN 18:18
PROVIDERS: PCP Nurse Practitioner Family; Visit Provider Nurse Practitioner Gerontology
DX: E55.9 Vitamin D deficiency, unspecified (principal); D51.8 Other vitamin B12 deficiency anemias
CPT/HCPCS: 82306; 82607

== ENCOUNTER 2023-02-14 17:28 | Outpatient (REF) | payer OTHER, SELFPAY ==
[2023-02-14 15:57] LABS: Bilirubin Negative (Negative); Blood Large (Negative); Clarity Clear (Clear); Glucose Negative (Negative); Ketones Negative (Negative); Leukocyte Esterase Moderate (Negative); Nitrite Negative (Negative); Specific Gravity <= 1.005 (1.005-1.025); Urobilinogen 0.2 mg/dL (Up to 0.2)
[2023-02-14 16:44] LABS: Bacteria Rare HPF (Negative); C & S Indicated? C&S Done As Ordered; Casts Negative LPF (Negative); Crystals Negative HPF (Negative); Epithelial Cells Rare HPF (Negative); Mucus Negative (Negative); Other Cells Rare Transitional (Negative)
== END 2023-02-14 17:29 | disposition home or self-care (01) ==
LOC: LBN 17:28
PROVIDERS: PCP Nurse Practitioner Family; Visit Provider Nurse Practitioner Gerontology
DX: N34.1 Nonspecific urethritis (principal)
CPT/HCPCS: 87077; 81003; 81015; 87086; 87186

== ENCOUNTER → 2023-02-24 12:20 | Outpatient (BNVA) | payer OTHER, SELFPAY | PROVIDERS: PCP Nurse Practitioner Family; Visit Provider Psychiatry & Neurology Neurology | DX: G95.0 Syringomyelia and syringobulbia (principal); G93.0 Cerebral cysts; G70.00 Myasthenia gravis without (acute) exacerbation; R29.898 Other symptoms and signs involving the musculoskeletal system; R25.2 Cramp and spasm; G47.00 Insomnia, unspecified; M25.512 Pain in left shoulder; G56.02 Carpal tunnel syndrome, left upper limb; G56.22 Lesion of ulnar nerve, left upper limb | CPT/HCPCS: 99214 ==

== ENCOUNTER 2023-03-24 16:04 | Outpatient (REF) | payer OTHER, SELFPAY ==
[2023-03-24 17:04] LABS: Abs Immature Grans 0.01 10^3/uL (0.0-0.06); Absolute Basophil Count 0.04 10^3/uL (0.0-0.2); Absolute Eosinophil Count 0.18 10^3/uL (0.0-0.7); Absolute Lymphocyte Count 0.99 10^3/uL (1.2-3.4); Absolute Monocyte Count 0.57 10^3/uL (0.1-0.8); Absolute Neutrophil Count 5.18 10^3/uL (1.2-6.7); Basophils % 0.6; Eosinophils % 2.6; HCT 38.1 % (36.0-46.0); HGB 11.7 g/dL (11.2-15.7); Immature Grans % 0.1; Lymphocytes % 14.2; MCH 28.8 pg (27.0-33.0); MCHC 30.7 % (32.0-36.0); MCV 94 fL (80-95); MPV 9.7 fL (8.0-11.0); Monocytes % 8.2; Neutrophils % 74.3; Platelet Count 274 10^3/uL (130-400); RBC 4.06 10^6/uL (3.93-5.22); RDW 14.8 % (11.7-14.6); RDW-SD 51.8 fL; WBC 6.97 10^3/uL (4.4-10.8)
[2023-03-24 17:21] LABS: ALT 17 U/L (14-59); AST 15 U/L (15-37); Albumin 3.3 g/dL (3.4-5.0); Alkaline Phosphatase 101 U/L (46-116); Anion Gap 10.3 mmol/L (3-11); BUN 36 mg/dL (7-18); Bilirubin, Total 0.3 mg/dL (0.2-1.0); CO2 27.7 mmol/L (21.0-32.0); CREATININE 1.8 mg/dL (0.55-1.02); Calcium 9.1 mg/dL (8.5-10.1); Chloride 98 mmol/L (98-107); Glucose 107 mg/dL (74-106); NT-proBNP 321 pg/mL (<300); Potassium 4.6 mmol/L (3.5-5.1); Sodium 136 mmol/L (136-145); Total Protein 6.7 g/dL (6.4-8.2)
== END 2023-03-24 16:05 | disposition home or self-care (01) ==
LOC: LBN 16:04
PROVIDERS: PCP Nurse Practitioner Family; Visit Provider Nurse Practitioner Gerontology
DX: G89.4 Chronic pain syndrome (principal); R68.89 Other general symptoms and signs; D51.8 Other vitamin B12 deficiency anemias; G95.0 Syringomyelia and syringobulbia; R06.89 Other abnormalities of breathing
CPT/HCPCS: 80053; 83880; 85025

== ENCOUNTER 2023-04-05 21:21 | Outpatient (REF) | payer OTHER, SELFPAY ==
[2023-04-05 19:38] LABS: ALT 16 U/L (14-59); AST 13 U/L (15-37); Albumin 3.5 g/dL (3.4-5.0); Alkaline Phosphatase 97 U/L (46-116); Anion Gap 8.9 mmol/L (3-11); BUN 43 mg/dL (7-18); Bilirubin, Total 0.5 mg/dL (0.2-1.0); CO2 27.1 mmol/L (21.0-32.0); CREATININE 1.6 mg/dL (0.55-1.02); Calcium 9.3 mg/dL (8.5-10.1); Chloride 97 mmol/L (98-107); Estimated GFR 35.13 (mL/min/1.73m2); Glucose 110 mg/dL (74-106); Potassium 4.5 mmol/L (3.5-5.1); Sodium 133 mmol/L (136-145); Total Protein 7.2 g/dL (6.4-8.2)
== END 2023-04-05 21:22 | disposition home or self-care (01) ==
LOC: LBN 21:21
PROVIDERS: PCP Nurse Practitioner Family; Visit Provider Nurse Practitioner Gerontology
DX: G89.4 Chronic pain syndrome (principal); R68.89 Other general symptoms and signs; D51.8 Other vitamin B12 deficiency anemias; N18.9 Chronic kidney disease, unspecified
CPT/HCPCS: 80053

== ENCOUNTER → 2023-09-14 12:36 | Outpatient (BNVA) | payer OTHER, SELFPAY | PROVIDERS: PCP Legal Medicine; Referring Provider Legal Medicine; Visit Provider Nurse Practitioner Gerontology | DX: N31.9 Neuromuscular dysfunction of bladder, unspecified (principal); R82.998 Other abnormal findings in urine | CPT/HCPCS: 81003; 99213 ==

== ENCOUNTER 2023-09-14 13:14 | Outpatient (REF) | payer OTHER, SELFPAY | END 2023-09-14 13:15 | disposition home or self-care (01) | LOC: LBN 13:14 | PROVIDERS: PCP Legal Medicine; Visit Provider Nurse Practitioner Gerontology | DX: N39.0 Urinary tract infection, site not specified (principal) | CPT/HCPCS: 87086 ==

== ENCOUNTER 2023-11-07 18:13 | Outpatient (REF) | payer OTHER, SELFPAY ==
[2023-11-07 20:12] LABS: ALT 13 U/L (14-59); AST 12 U/L (15-37); Albumin 3.3 g/dL (3.4-5.0); Alkaline Phosphatase 104 U/L (46-116); Anion Gap 9.9 mmol/L (3-11); BUN 40 mg/dL (7-18); Bilirubin, Total 0.3 mg/dL (0.2-1.0); CO2 30.1 mmol/L (21.0-32.0); CREATININE 1.3 mg/dL (0.55-1.02); Calcium 8.9 mg/dL (8.5-10.1); Chloride 99 mmol/L (98-107); Estimated GFR 44.79 (mL/min/1.73m2); Glucose 97 mg/dL (74-106); Potassium 4.7 mmol/L (3.5-5.1); Sodium 139 mmol/L (136-145); Total Protein 6.8 g/dL (6.4-8.2)
== END 2023-11-07 18:14 | disposition home or self-care (01) ==
LOC: LBN 18:13
PROVIDERS: PCP Legal Medicine; Visit Provider Nurse Practitioner Gerontology
DX: I10 Essential (primary) hypertension (principal); R68.89 Other general symptoms and signs
CPT/HCPCS: 80053

== ENCOUNTER 2024-02-13 18:29 | Outpatient (REF) | payer OTHER, SELFPAY ==
[2024-02-13 18:40] LABS: Abs Immature Grans 0.03 10^3/uL (0.0-0.06); Absolute Basophil Count 0.03 10^3/uL (0.0-0.2); Absolute Eosinophil Count 0.14 10^3/uL (0.0-0.7); Absolute Lymphocyte Count 0.91 10^3/uL (1.2-3.4); Absolute Monocyte Count 0.72 10^3/uL (0.1-0.8); Basophils % 0.4 %; Eosinophils % 1.7 %; HCT 40.5 % (36.0-46.0); HGB 12.7 g/dL (11.2-15.7); Immature Grans % 0.4 %; Lymphocytes % 11.2 %; MCH 29.5 pg (27.0-33.0); MCHC 31.4 % (32.0-36.0); MCV 94 fL (80-95); MPV 9.8 fL (8.0-11.0); Monocytes % 8.9 %; Neutrophils % 77.4 %; Platelet Count 254 10^3/uL (130-400); RDW 12.9 % (11.7-14.6); WBC 8.13 10^3/uL (4.4-10.8)
[2024-02-13 19:25] LABS: ALT 14 U/L (14-59); AST 11 U/L (15-37); Albumin 3.3 g/dL (3.4-5.0); Alkaline Phosphatase 90 U/L (46-116); Anion Gap 6.7 mmol/L (3-11); BUN 34 mg/dL (7-18); Bilirubin, Total 0.32 mg/dL (0.2-1.0); CO2 31.3 mmol/L (21.0-32.0); CREATININE 1.3 mg/dL (0.55-1.02); Calcium 9.2 mg/dL (8.5-10.1); Chloride 102 mmol/L (98-107); Estimated GFR 44.79 (mL/min/1.73m2); Folate 11.4 ng/mL (8.6-20.0); Glucose 113 mg/dL (74-106); Magnesium 2.1 mg/dL (1.8-2.4); Potassium 4.7 mmol/L (3.5-5.1); Sodium 140 mmol/L (136-145); Total Protein 6.7 g/dL (6.4-8.2); Vitamin B12 461 pg/mL (193-986); Vitamin D 25 Total 72.1 ng/mL (30-100)
== END 2024-02-13 18:30 | disposition home or self-care (01) ==
LOC: LBN 18:29
PROVIDERS: PCP Legal Medicine; Visit Provider Nurse Practitioner Gerontology
DX: D51.8 Other vitamin B12 deficiency anemias (principal); D52.9 Folate deficiency anemia, unspecified; E55.9 Vitamin D deficiency, unspecified; R68.89 Other general symptoms and signs
CPT/HCPCS: 80053; 82306; 82607; 82746; 83735; 85025

== ENCOUNTER 2024-06-02 18:01 | Inpatient (IN) | payer OTHER, MEDICAID, SELFPAY ==
[2024-06-02] VITALS (126 sets, daily range): BP systolic 66–248; BP diastolic 18–216; PULSE 67–134; RESP 12–33; TEMP 37.1; O2SAT 86–97
--- NOTE | 2024-06-02 17:45 | RT.EKG_ITS ---
APPROVED REPORT Exam: Resting ECG Reason for Exam: SOB Patient Location: E HR:98 bpm ECG Measurements Heart Rate 98 AXIS MS 131 P 56 QRSd 113 QRS 36 QT 354 T 39 QTc 453 Conclusion Sinus rhythm...normal P axis, V-rate 60- 99 Consider anterior infarct...Q >30mS in V2-V5 Sinus rhythm normal axis normal intervals no ischemic changes
--- NOTE | 2024-06-02 18:00 | DI.RAD_ITS ---
Exam(s) XR PORTABLE CHEST AP EXAM: XR PORTABLE CHEST AP CLINICAL HISTORY: cough fever sob hypoxia TECHNIQUE: 2D digital imaging was performed of the chest. One image was obtained. An AP view was ob tained. COMPARISON: CR,XR XR PORTABLE CHEST AP from 09/26/2022 FINDINGS: MEDIASTINUM: Normal. HEART: The cardiac silhouette is obscured due to the elevated hemidiaphragm. PULMONARY VASCULATURE: Normal. LUNGS: There is an infiltrate seen in the left perihilar region suspicious for pneumonia. The right lung is clear. PLEURAL SPACE: No pleural effusion or pneumothorax. BONE:Within normal limits for the patient's age. Sternal wires are in place. There is marked curvatu re of the thoracic spine. OTHER FINDINGS:There is again seen marked elevation of the left hemidiaphragm. IMPRESSION: Left perihilar infiltrate suspicious for pneumonia. DATA REPOSITORY: RADIATION DOSE DELIVERED:
--- NOTE | 2024-06-02 18:12 | ED.GENADUL_ITS ---
Discharge Plan Disposition Patient Disposition: Admit to [facility] Condition: Serious Discharge Details Chief Complaint: SOB Clinical Impression: Pneumonia, Myasthenia gravis Primary Care Provider: Marni Friedman ED Provider: Ruddy Downing Home Meds and New Rx's Prescriptions: No Action vitamin B complex Capsule 1 cap PO DAILY fentanyl 100 mcg/hr patch 72 hour 1 patch transdermal Q48H Rx Instructions: total: 125 mcg/hr lidocaine 4 % adhesive patch,medicated 1 patch topical DAILY bisacodyl 10 mg suppository 10 mg PA DAILY PRN furosemide 20 mg tablet 20 mg PO DAILY Qty: 30 0RF gabapentin 300 mg capsule 600 mg PO BID melatonin 2.5 mg tablet,chewable 10 mg PO HS PRN sennosides-docusate sodium [Lax Stool Softener With Senna] 8.6-50 mg tablet 1 tab-cap PO QHS cholecalciferol (vitamin D3) 50 mcg (2,000 unit) capsule 50 mcg PO DAILY mirabegron [Myrbetriq] 25 mg tablet extended release 24 hr 50 mg PO DAILY pyridostigmine bromide 60 mg tablet 180 mg PO DAILY Rx Instructions: Should be Extended Release form amlodipine 2.5 mg tablet 2.5 mg PO DAILY cyclobenzaprine 15 mg capsule,extended release 24hr 15 mg PO QHS polyethylene glycol 3350 17 gram Powder In Packet 17 g PO DAILY PRN acetaminophen 500 mg tablet 1,000 mg PO TID nystatin 100,000 unit/gram Powder 15 g topical BID PRN lisinopril 10 mg Tablet 10 mg PO DAILY Qty: 0 0RF metoprolol tartrate 25 mg Tablet 12.5 mg PO BID Qty: 0 0RF zolpidem 5 mg Tablet 10 mg PO HS Qty: 0 0RF HPI General Date/Time Provider Initiated Documentation: 06/02/24 18:08 . HPI Narrative: 69-year-old female history of myasthenia gravis [facility] of shortness of breath cough hypoxia and fever. Given antipyre tic before arrival. Patient Dors is history of smoking in the past Related Data Home Medications ?Medication ?Instructions ?Recorded ?Confirmed furosemide 20 mg tablet 20 mg PO DAILY #30 tabs 03/18/22 06/02/24 amlodipine 2.5 mg tablet 2.5 mg PO DAILY 07/30/22 06/02/24 lisinopril 10 mg tablet 10 mg PO DAILY #0 tabs 11/16/22 06/02/24 metoprolol tartrate 25 mg tablet 12.5 mg (1/2 x 25 mg) PO BID #0 11/16/22 06/02/24 tabs zolpidem 5 mg tablet 10 mg (2 x 5 mg) PO HS #0 tabs 11/16/22 06/02/24 vitamin B complex 1 cap PO DAILY 12/22/22 06/02/24 fentanyl 100 mcg/hr transdermal 1 patch transdermal Q48H 12/23/22 06/02/24 patch gabapentin 300 mg capsule 600 mg PO BID 02/24/23 06/02/24 lidocaine 4 % topical patch 1 patch topical DAILY 04/28/23 06/02/24 cholecalciferol (vitamin D3) 50 50 mcg PO DAILY 06/21/23 06/02/24 mcg (2,000 unit) capsule melatonin 2.5 mg chewable tablet 10 mg PO HS PRN 06/21/23 06/02/24 sennosides 8.6 mg-docusate sodium 1 tab-cap PO QHS 06/21/23 06/02/24 50 mg tablet (Laxative Stool Softener With Senna) mirabegron 25 mg tablet,extended 50 mg PO DAILY 11/24/23 06/02/24 release 24 hr (Myrbetriq) pyridostigmine bromide 60 mg tablet 180 mg PO DAILY 11/24/23 06/02/24 bisacodyl 10 mg rectal suppository 10 mg PA DAILY PRN 04/24/24 06/02/24 acetaminophen 500 mg tablet 1,000 mg PO TID pain 06/02/24 06/02/24 cyclobenzaprine 15 mg 15 mg PO QHS 06/02/24 06/02/24 capsule,extended release 24 hr nystatin 100,000 unit/gram topical 15 g topical BID PRN 06/02/24 06/02/24 powder polyethylene glycol 3350 17 gram 17 g PO DAILY PRN 06/02/24 06/02/24 oral powder packet Previous Rx's ?Medication ?Instructions ?Recorded furosemide 20 mg tablet 20 mg PO DAILY #30 tabs 03/18/22 lisinopril 10 mg tablet 10 mg PO DAILY #0 tabs 11/16/22 metoprolol tartrate 25 mg tablet 12.5 mg (1/2 x 25 mg) PO BID #0 11/16/22 tabs zolpidem 5 mg tablet 10 mg (2 x 5 mg) PO HS #0 tabs 11/16/22 Allergies Allergy/AdvReac Type Severity Reaction Status Date / Time codeine Allergy Severe pt unsure Verified 06/02/24 18:18 of reaction iodine Allergy Severe pt unsure Verified 06/02/24 18:18 of reaction Penicillins Allergy Severe Anaphylaxsi Verified 06/02/24 18:18 s Sulfa (Sulfonamide Allergy Severe Swelling/Ed Verified 06/02/24 18:18 Antibiotics) kendal trazodone AdvReac Intermediate PER PT Verified 06/02/24 18:18 MAKES HER HEART RACE. General Stated Complaint: SOB ZEV: 2 Exam Narrative Exam Narrative: Alert interactive Moist mucous membranes tolerating secretions Normal voice speaking full sentences Rhonchorous breath sounds left greater than right anteriorly speaking full sentences no tachypnea no retractions Normal heart sounds no murmurs rubs or gallops Abdomen soft nontender nondistended Mild bilateral ankle edema No rashes appreciated Alert interactive moving all extremities without deficit Course Vital Signs Vital signs: Vital Signs Pulse 102 H 06/02/24 18:01 Respiratory Rate 18 06/02/24 18:01 Blood Pressure 106/51 L 06/02/24 18:01 Pulse Oximetry 91 L 06/02/24 18:01 Pulse 102 H 06/02/24 18:09 Respiratory Rate 18 06/02/24 18:09 Respiratory Effort Short of Breath 06/02/24 18:09 Blood Pressure 106/51 L 06/02/24 18:09 Pulse Oximetry 91 L 06/02/24 18:09 Oxygen Delivery Method Nasal Cannula 06/02/24 18:09 Oxygen Flow Rate 4 06/02/24 18:09 Pain Level 0 06/02/24 18:09 Medical Decision Making 69-year-old female history of myasthenia gravis [facility] of fever cough shortness of breath and hypoxia requiring 2 L nasal cannula, rhonchorous breath sounds bilaterally, mild edema to bilateral ankles, fever at [facility] given antipyretic before arrival afebrile here mildly tachycardic, EKG sinus tachycardia nonischemic, consider pneumonia versus viral pneumonia versus CHF versus myasthenic crisis although patient denies any subjective weakness, will obtain neph, portable chest x-ray, COVID swab, albuterol/ipratropium, muscles consider COPD exacerbation lower suspicion for ACS PE or pneumothorax or aortic pathology 20: 19 his blood pressure reading was severely low at 60 systolic, fluid bolus 500 cc was given, repeat pressures elevated 150s over 110s; bedside ultrasound showing hyperdynamic cardiac activity, possible scattered B-lines, patient did not tolerate NIF testing will attempt to assess vital capacity, placing patient on BiPAP given persistent hypoxemia 88% on supplemental oxygen tachypnea and respiratory acidosis. Consider myasthenia crisis versus pneumonia versus CHF exacerbation 20: 53 vital capacity approximately 750 mL which is below patient's expected vital capacity of 1203-2626 mL, in conjunction with respiratory distress respiratory acidosis and insufficient NIF must consider component of myasthenic crisis. Discussed case with hospitalist to consider beginning IVIG and steroids, recommending neurology consultation at [place], patient still considering whether she would accept transfer if needed for higher level of care such as inpatient neurology pulmonology IVIG treatment and ICU level care. 21: [address] Stockton of neurology at [place] who agrees with starting IVIG, recommending holding corticosteroids as they can sometimes exacerbate myasthenic crisis. Recommended IVIG dose 400 mg/kg once daily for 5 days. Patient does not want transfer. We have IVIG available here at [facility]. Will admit to ICU. Quality:SDOH Health Related Social Needs: No Data to Display Critical Care Time Critical Care Time Critical Care Time: Yes Total Critical Care Time: 30 Attestation: Critical care time spent the bedside assessing patient interpreting labs interpreting imaging and patient with respiratory distress requiring BiPAP and ICU level admission for severe pneumonia and possible myasthenia gravis crisis PFSH All Active Problems (Updated 06/02/24 @ 21:58 by Ruddy Downing MD) Myasthenia gravis (Chronic) Pneumonia (Acute) Nail dystrophy (Acute) Ambulatory dysfunction (Acute) Hypertension (Chronic) GERD (gastroesophageal reflux disease) (Chronic) Myasthenia gravis (Chronic) Neuropathic pain of both legs (Chronic) Weakness (Acute) Pain (Acute) Frequent falls (Chronic) Constipation, chronic (Chronic) Neurogenic bladder (Chronic) Closed fracture of left distal femur (Acute 09/25/22) Medical History UTI (urinary tract infection) Urine abnormality Palliative care patient Fluid collection at surgical site Oropharyngeal dysphagia Atelectasis External bleeding hemorrhoids Palliative care patient Elevated troponin Tachycardia Neurogenic bowel Fluid collection at surgical site Prerenal azotemia Hypomagnesemia Acute hypokalemia Hypoxia Acute hyponatremia Bursitis of left shoulder Rupture of left proximal biceps tendon Ulnar neuropathy of left upper extremity Carpal tunnel syndrome of left wrist Left shoulder pain Gastric ulcer Protein malnutrition Generalized weakness Urinary retention DNI (do not intubate) DNR (do not resuscitate) POLST (Physician Orders for Life-Sustaining Treatment) COLST completed 10/30/2020 with Jennifer Lugo, MAUREEN, DNR/DNI Former smoker Spinal stenosis Urinary frequency History of lacunar cerebrovascular accident Ataxia Left hand weakness Hypokalemia Peripheral neuropathy Arachnoid cyst Chronic renal insufficiency Dental caries History of gluten intolerance Bunion of unspecified foot Prediabetes Chronic pain Spasticity Asymptomatic microscopic hematuria Left arm weakness Migraine headache without aura Syrinx of spinal cord Starting at C3 and extending to T11 Intracranial arachnoid cyst Hyperlipidemia COPD (chronic obstructive pulmonary disease) Alcohol abuse history of Insomnia previous misuse of Ambien Anxiety Depression Surgical History H/O esophagogastroduodenoscopy (~07/2021) 09/2021 H/O craniotomy ; L cerebellar arachnoid cyst drain with shunt placement S/P cystourethroscopy with dilation of urethral stricture H/O thymectomy S/P appendectomy S/P tonsillectomy Family History Mother , 90 Diabetes Hypertension Stroke Father , 73 Neuropathy Back problem Depression Heart disease Stroke Brother Myasthenia gravis Depression Maternal Grandfather , 80's Diabetes Paternal Grandfather , 50 Heart disease Maternal Grandmother , 80 No problems noted. Paternal Grandmother , 70 No problems noted. Social History Smoking/Tobacco Use Status: Former Tobacco Use tobacco type: cigarettes Quit Date: 08/15/16 Tobacco: How many years used: 35 Smoking risk assessment performed?: Yes Alcohol Intake: former Drug use: Never Substance use type: does not use Household members: other Housing: penitentiary Number of Children: 0 Pets and animals: No Current gender identity: female What type of physical activity do you participate in: none Seatbelt use: always Do you feel safe at home: Yes (Pt lives alone) Do you feel safe in your relationship?: Yes
[2024-06-02 18:44] LABS: Abs Immature Grans 0.07 10^3/uL (0.0-0.06); Absolute Basophil Count 0.03 10^3/uL (0.0-0.2); Absolute Eosinophil Count 0.07 10^3/uL (0.0-0.7); Absolute Lymphocyte Count 0.74 10^3/uL (1.2-3.4); Absolute Monocyte Count 0.63 10^3/uL (0.1-0.8); Absolute Neutrophil Count 12.89 10^3/uL (1.2-6.7); Basophils % 0.2 %; Eosinophils % 0.5 %; HGB 13.1 g/dL (11.2-15.7); Immature Grans % 0.5 %; Lymphocytes % 5.1 %; MCH 29.9 pg (27.0-33.0); MCV 94 fL (80-95); Monocytes % 4.4 %; Neutrophils % 89.3 %; Platelet Count 234 10^3/uL (130-400); RBC 4.38 10^6/uL (3.93-5.22); RDW 13.2 % (11.7-14.6); RDW-SD 45.6 fL; WBC 14.43 10^3/uL (4.4-10.8)
[2024-06-02] MEDS: Albuterol/Ipratropium 3 ML UPD VIAL 9 ML UPD (18:55)
[2024-06-02] MEDS: levoFLOXacin 750 MG/150 ML BAG 100 MG IVPB (18:56)
[2024-06-02 18:59] LABS: INR 1.1 (0.9-1.1); PTT Activated 38.5 sec (23.6-32.8)
[2024-06-02 19:12] LABS: ALT 11 U/L (14-59); AST 10 U/L (15-37); Albumin 2.5 g/dL (3.4-5.0); Alkaline Phosphatase 145 U/L (46-116); Anion Gap 9.2 mmol/L (3-11); BUN 50 mg/dL (7-18); Bilirubin, Total 0.69 mg/dL (0.2-1.0); CO2 28.8 mmol/L (21.0-32.0); Calcium 9.2 mg/dL (8.5-10.1); Chloride 96 mmol/L (98-107); Estimated GFR 26.54 (mL/min/1.73m2); Glucose 109 mg/dL (74-106); Magnesium 2.1 mg/dL (1.8-2.4); NT-proBNP 1254 pg/mL (<300); Potassium 4.4 mmol/L (3.5-5.1); Sodium 134 mmol/L (136-145); Total Protein 7.6 g/dL (6.4-8.2); Troponin I < 4 ng/L (<or=51)
--- NOTE | 2024-06-02 19:23 | NUR.NOTE ---
Nursing Note: two fentanyl patches removed from right shoulder they were placed on 06/01
[2024-06-02 19:28] LABS: FREE T4 1.33 ng/dL (0.76-1.46)
[2024-06-02 19:35] LABS: BE (Venous) 2 mmol/L (-2-3); HCO3 (Venous) 28 mmol/L (23-28); Lactate 1.3 mmol/L (0.6-1.4); O2 Sat (Venous) 56 %; TCO2 (Venous) 27 mmol/L (24-29); pCO2 (Venous) 59 mmHg (41-51); pH (Venous) 7.28 (7.31-7.41); pO2 (Venous) 31 mmHg
[2024-06-02] MEDS: Normal Saline 1,000 ML 1000 ML IV (19:37)
[2024-06-02 19:56] LABS: COVID-19 PCR Negative (Negative); Influenza A PCR Negative (Negative); Influenza B PCR Negative (Negative); RSV PCR Negative (Negative); Source NASOPHARYNX
[2024-06-02 19:58] LABS: Troponin I 4 ng/L (<or=51)
--- NOTE | 2024-06-02 20:36 | NUR.NOTE ---
Nursing Note:provider updated about increase crackles. stopped bolus.
--- NOTE | 2024-06-02 22:09 | W.PM.HP.N ---
Date of service: 06/02/24 Time of Service: 22:09 Assessment and Plan Assessment and plan (1) Acute respiratory failure with hypoxia and hypercarbia: Start date: 06/02/24 Status: Acute Assessment and plan: This is a 69-year-old lady with acute respiratory symptoms presenting with left lower lobe pneumonia by chest x-ray and acute hypoxemia with hypercapnia and respiratory failure. At baseline she does not require respiratory treatment and is on oxygen. She does have exacerbation of her myasthenia gravis which has been only slowly deteriorating course and she is a DNR/DNI. She will continue on BiPAP with O2 supplementation and aggressive treatment of her pneumonia. She also will receive IVIG daily treatments for exacerbation of her myasthenia gravis. This was cleared by neurology at [facility]. She will be placed in ICU for close observation with aggressive treatment. Patient remains a DNR/DNI. (2) Pneumonia: Start date: 06/02/24 Status: Acute Assessment and plan: Left lower lobe by imaging with patient on Levaquin with multiple allergies. Adjust to renal function. Qualifiers: Laterality: left Lung location: lower lobe of lung Pneumonia type: due to unspecified organism Qualified Code(s): J18.9 - Pneumonia, unspecified organism (3) Myasthenia gravis: Status: Chronic Assessment and plan: Patient appears to be having a myasthenia gravis crisis with her acute respiratory infection but has been on a slowly deteriorating course over the last months. IVIG as per neurology at [facility] for 5 days. Continue outpatient medical therapy same. Supportive care. (4) Hypertension: Status: Chronic Assessment and plan: Variable measurements with patient to continue outpatient medical therapy adjusting as needed. ICU level of care with her instability. Qualifiers: Hypertension type: primary hypertension Qualified Code(s): I10 - Essential (primary) hypertension (5) GERD (gastroesophageal reflux disease): Status: Chronic Assessment and plan: IV PPI with acute stress with her pneumonia and ICU treatment. Qualifiers: Esophagitis presence: without esophagitis Qualified Code(s): K21.9 - Gastro-esophageal reflux disease without esophagitis History of Present Illness History of Present Illness Chief Complaint: Dyspnea with hypoxemia and fever in patient with myasthenia gravis Narrative: This is a 69-year-old female patient who resides at local shelter who presents with fever and hypoxemia, usually not requiring oxygen at the shelter and increasing shortness of breath. She also has had congestion for the previous month with escalation of symptoms on the day of presentation. In the ED evaluation she was found to have acute respiratory failure with hypercapnia and hypoxemia as well as left pneumonia which was significant. She has multiple allergies and was initiated on Levaquin. Hypoxemia persisted despite BiPAP with increased FiO2 support presumed secondary to poor voluntary muscular support with breathing thought to be secondary to exacerbation of her myasthenia gravis with crisis. Neurology was consulted at [facility] and agreed with IVIG treatment daily for 5 days along with continued respiratory support with oxygen supplementation as needed, po BiPAP as she tolerated and continued IV antibiotic therapy. The patient has had progressive deterioration with her myasthenia gravis being bedridden, having a suprapubic catheter and progressive muscle weakness despite therapy. She is a DNR/DNI and does not wish to be transferred. Review of Systems Narrative: 13 point review of systems otherwise unrevealing or stable. Patient has difficulty getting history while on BiPAP with very soft voice. PFSH All Active Problems Acute respiratory failure with hypoxia and hypercarbia (Acute) Myasthenia gravis (Chronic) Pneumonia (Acute) Nail dystrophy (Acute) Ambulatory dysfunction (Acute) Hypertension (Chronic) GERD (gastroesophageal reflux disease) (Chronic) Myasthenia gravis (Chronic) Neuropathic pain of both legs (Chronic) Weakness (Acute) Pain (Acute) Frequent falls (Chronic) Constipation, chronic (Chronic) Neurogenic bladder (Chronic) Closed fracture of left distal femur (Acute 09/25/22) Medical History UTI (urinary tract infection) Urine abnormality Palliative care patient Fluid collection at surgical site Oropharyngeal dysphagia Atelectasis External bleeding hemorrhoids Palliative care patient Elevated troponin Tachycardia Neurogenic bowel Fluid collection at surgical site Prerenal azotemia Hypomagnesemia Acute hypokalemia Hypoxia Acute hyponatremia Bursitis of left shoulder Rupture of left proximal biceps tendon Ulnar neuropathy of left upper extremity Carpal tunnel syndrome of left wrist Left shoulder pain Gastric ulcer Protein malnutrition Generalized weakness Urinary retention DNI (do not intubate) DNR (do not resuscitate) POLST (Physician Orders for Life-Sustaining Treatment) COLST completed 10/30/2020 with MAUREEN Marley, DNR/DNI Former smoker Spinal stenosis Urinary frequency History of lacunar cerebrovascular accident Ataxia Left hand weakness Hypokalemia Peripheral neuropathy Arachnoid cyst Chronic renal insufficiency Dental caries History of gluten intolerance Bunion of unspecified foot Prediabetes Chronic pain Spasticity Asymptomatic microscopic hematuria Left arm weakness Migraine headache without aura Syrinx of spinal cord Starting at C3 and extending to T11 Intracranial arachnoid cyst Hyperlipidemia COPD (chronic obstructive pulmonary disease) Alcohol abuse history of Insomnia previous misuse of Ambien Anxiety Depression Surgical History H/O esophagogastroduodenoscopy (~07/2021) 09/2021 H/O craniotomy ; L cerebellar arachnoid cyst drain with shunt placement S/P cystourethroscopy with dilation of urethral stricture H/O thymectomy S/P appendectomy S/P tonsillectomy Family History Mother , 90 Diabetes Hypertension Stroke Father , 73 Neuropathy Back problem Depression Heart disease Stroke Brother Myasthenia gravis Depression Maternal Grandfather , 80's Diabetes Paternal Grandfather , 50 Heart disease Maternal Grandmother , 80 No problems noted. Paternal Grandmother , 70 No problems noted. Social History Smoking/Tobacco Use Status: Former Tobacco Use tobacco type: cigarettes Quit Date: 08/15/16 Tobacco: How many years used: 35 Smoking risk assessment performed?: Yes Alcohol Intake: former Drug use: Never Substance use type: does not use Household members: other Housing: assisted living facility Number of Children: 0 Pets and animals: No Current gender identity: female What type of physical activity do you participate in: none Seatbelt use: always Do you feel safe at home: Yes (Pt lives alone) Do you feel safe in your relationship?: Yes Meds Allergies and Home Medications Allergies Allergy/AdvReac Type Severity Reaction Status Date / Time codeine Allergy Severe pt unsure Verified 06/02/24 18:18 of reaction iodine Allergy Severe pt unsure Verified 06/02/24 18:18 of reaction Penicillins Allergy Severe Anaphylaxsi Verified 06/02/24 18:18 s Sulfa (Sulfonamide Allergy Severe Swelling/Ed Verified 06/02/24 18:18 Antibiotics) kendal trazodone AdvReac Intermediate PER PT Verified 06/02/24 18:18 MAKES HER HEART RACE. Home Medications ?Medication ?Instructions ?Recorded ?Confirmed ?Type furosemide 20 mg tablet 20 mg PO DAILY #30 tabs 03/18/22 06/02/24 Rx amlodipine 2.5 mg tablet 2.5 mg PO DAILY 07/30/22 06/02/24 History lisinopril 10 mg tablet 10 mg PO DAILY #0 tabs 11/16/22 06/02/24 Rx metoprolol tartrate 25 mg tablet 12.5 mg (1/2 x 25 mg) PO BID #0 11/16/22 06/02/24 Rx tabs zolpidem 5 mg tablet 10 mg (2 x 5 mg) PO HS #0 tabs 11/16/22 06/02/24 Rx vitamin B complex 1 cap PO DAILY 12/22/22 06/02/24 History fentanyl 100 mcg/hr transdermal 1 patch transdermal Q48H 12/23/22 06/02/24 History patch gabapentin 300 mg capsule 600 mg PO BID 02/24/23 06/02/24 History lidocaine 4 % topical patch 1 patch topical DAILY 04/28/23 06/02/24 History cholecalciferol (vitamin D3) 50 50 mcg PO DAILY 06/21/23 06/02/24 History mcg (2,000 unit) capsule melatonin 2.5 mg chewable tablet 10 mg PO HS PRN 06/21/23 06/02/24 History sennosides 8.6 mg-docusate sodium 1 tab-cap PO QHS 06/21/23 06/02/24 History 50 mg tablet (Laxative Stool Softener With Senna) mirabegron 25 mg tablet,extended 50 mg PO DAILY 11/24/23 06/02/24 History release 24 hr (Myrbetriq) pyridostigmine bromide 60 mg tablet 180 mg PO DAILY 11/24/23 06/02/24 History bisacodyl 10 mg rectal suppository 10 mg CO DAILY PRN 04/24/24 06/02/24 History acetaminophen 500 mg tablet 1,000 mg PO TID pain 06/02/24 06/02/24 History cyclobenzaprine 15 mg 15 mg PO QHS 06/02/24 06/02/24 History capsule,extended release 24 hr nystatin 100,000 unit/gram topical 15 g topical BID PRN 06/02/24 06/02/24 History powder polyethylene glycol 3350 17 gram 17 g PO DAILY PRN 06/02/24 06/02/24 History oral powder packet Exam Narrative Exam Narrative: General: Patient appears chronically ill, moderately obese, alert and oriented x 3 on BiPAP with soft voice and difficult to understand at times. She is in moderate respiratory distress. HEENT: Normocephalic, eyes with pupils equal and reactive to light symmetrically, extraocular movement intact and sclera anicteric. Oropharynx with dry mucosa and fair dentition. Patient has been seen and discolored teeth. Neck: Supple without JVD. Back: Not examined patient supine. Breast: Exam deferred. Lungs: Fair aeration of the right more than left with inspiratory coarse crackles over left with decreased aeration but no focalizing. No expiratory wheeze. Heart: Tachycardic rate with irregular rhythm. No murmurs or gallops appreciated. Abdomen: Obese contour, soft and nontender. To palpation with no guarding or rebound. No palpable hepatosplenomegaly. Bowel sounds positive all quadrants. Patient does have a suprapubic catheter in place draining clear yellow urine. Genitalia/rectal: Exam deferred. Extremities: 3+ nonpitting edema both lower extremities with minimal movement. No clubbing or cyanosis. Fair capillary refill. Skin: Normal color, warm and dry. Neuro: Cranial nerves II through XII gross intact, diffusely decreased muscle tone and strength with movement of upper extremities more than lower extremities. No focal tremor. Negative Babinski's. DTRs decreased but symmetrical. Psych: Depressed mood with normal affect. No abnormal thought processes. Remote and recent memory grossly intact. Results Imaging Imaging Studies: EXAM: XR PORTABLE CHEST AP CLINICAL HISTORY: cough fever sob hypoxia TECHNIQUE: 2D digital imaging was performed of the chest. One image was obtained. An AP view was obtained. COMPARISON: CR,XR XR PORTABLE CHEST AP from 09/26/2022 FINDINGS: MEDIASTINUM: Normal. HEART: The cardiac silhouette is obscured due to the elevated hemidiaphragm. PULMONARY VASCULATURE: Normal. LUNGS: There is an infiltrate seen in the left perihilar region suspicious for pneumonia. The right lung is clear. PLEURAL SPACE: No pleural effusion or pneumothorax. BONE:Within normal limits for the patient's age. Sternal wires are in place. There is marked curvature of the thoracic spine. OTHER FINDINGS:There is again seen marked elevation of the left hemidiaphragm. IMPRESSION: Left perihilar infiltrate suspicious for pneumonia. Labs 06/03/24 05:40 06/03/24 05:40 Labs: Laboratory Results - last 24 hr 06/02/24 06/02/24 06/02/24 18:27 19:10 19:33 WBC 14.43 H RBC 4.38 Hgb 13.1 Hct 41.0 MCV 94 MCH 29.9 MCHC 32.0 RDW 13.2 Plt Count 234 MPV 9.0 Immature Gran % 0.5 Neutrophils % 89.3 Lymphocytes % 5.1 Monocytes % 4.4 Eosinophils % 0.5 Basophils % 0.2 Nucleated RBC % 0.0 Absolute Neutrophils 12.89 H Absolute Lymphocytes 0.74 L Absolute Monocytes 0.63 Absolute Eosinophils 0.07 Absolute Basophils 0.03 PT 11.0 INR 1.1 APTT 38.5 H VBG pH 7.28 L VBG pCO2 59 H VBG pO2 31 VBG HCO3 28 VBG Total CO2 27 VBG O2 Saturation 56 VBG Base Excess 2 VBG Lactate 1.3 Sodium 134 L Potassium 4.4 Chloride 96 L Carbon Dioxide 28.8 Anion Gap 9.2 BUN 50 H Creatinine 2.0 H Est GFR (CKD-EPI 2020) 26.54 Glucose 109 H Calcium 9.2 Magnesium 2.1 Total Bilirubin 0.69 AST 10 L ALT 11 L Alkaline Phosphatase 145 H Troponin I < 4 4 NT-Pro-B Natriuret Pep 1254 H Total Protein 7.6 Albumin 2.5 L TSH 0.30 L Free T4 1.33 COVID-19 Source NASOPHARYNX SARS-CoV-2 (PCR) Negative Influenza Type A (PCR) Negative Influenza Type B (PCR) Negative RSV (PCR) Negative Last Vital Signs Pulse 111 H 06/02/24 21:32 Resp 22 06/02/24 21:32 BP 248/216 H 06/02/24 21:17 Pulse Ox 94 06/02/24 21:20 Time Spent Time spent with Patient: >75 minutes Time was spent: preparing to see the patient(eg.review tests), obtaining and/or reviewing separately otained hiistory, ordering medications,tests, procedures, referring, communicating with other health resident care spec, indepentently interpreting results and care coordination
[2024-06-02 23:17] LABS: BE (Venous) -2 mmol/L (-2-3); HCO3 (Venous) 25 mmol/L (23-28); O2 Sat (Venous) 56 %; TCO2 (Venous) 24 mmol/L (24-29); pCO2 (Venous) 55 mmHg (41-51); pH (Venous) 7.27 (7.31-7.41); pO2 (Venous) 31 mmHg
--- NOTE | 2024-06-02 23:28 | RESPIRATORY ---
2022: Pt. was able to performed NIP/MIP up to 30-40.
[2024-06-03] VITALS (112 sets, daily range): BP systolic 84–213; BP diastolic 45–139; PULSE 82–223; RESP 11–28; TEMP 36–36.9; O2SAT 61–97
[2024-06-03 00:30] LABS: MRSA PCR Negative (Negative)
[2024-06-03] MEDS: IMMUNE GLOBULIN 20 GM/200 ML BTL IVPB (00:50)
--- NOTE | 2024-06-03 00:59 | W.PC.ACHO ---
Registration Status: Primary Language: Preferred Language: ED Information & Data Chief Complaint SOB 06/02/24 18:14 Triage Note SOB today, wet lung sounds, 06/02/24 18:01 lethargic, fever, blood pressure a little soft per the [facility]- covid/flu negative at the [facility]- pt reports symptoms started yesterday Medical / Surgical History (Last Reviewed 06/02/24 @ 22:12 by Dioni Montgomery) UTI (urinary tract infection) Urine abnormality Palliative care patient Fluid collection at surgical site Oropharyngeal dysphagia Atelectasis External bleeding hemorrhoids Palliative care patient Elevated troponin Tachycardia Neurogenic bowel Fluid collection at surgical site Prerenal azotemia Hypomagnesemia Acute hypokalemia Hypoxia Acute hyponatremia Bursitis of left shoulder Rupture of left proximal biceps tendon Ulnar neuropathy of left upper extremity Carpal tunnel syndrome of left wrist Left shoulder pain Gastric ulcer Protein malnutrition Generalized weakness Urinary retention DNI (do not intubate) DNR (do not resuscitate) POLST (Physician Orders for Life-Sustaining Treatment) Former smoker Spinal stenosis Urinary frequency History of lacunar cerebrovascular accident Ataxia Left hand weakness Hypokalemia Peripheral neuropathy Arachnoid cyst Chronic renal insufficiency Dental caries History of gluten intolerance Bunion of unspecified foot Prediabetes Chronic pain Spasticity Asymptomatic microscopic hematuria Left arm weakness Migraine headache without aura Syrinx of spinal cord Intracranial arachnoid cyst Hyperlipidemia COPD (chronic obstructive pulmonary disease) Alcohol abuse Insomnia Anxiety Depression (Last Reviewed 06/02/24 @ 22:12 by Dioni Montgomery) H/O esophagogastroduodenoscopy (~07/2021) H/O craniotomy S/P cystourethroscopy with dilation of urethral stricture H/O thymectomy S/P appendectomy S/P tonsillectomy Most Recent Vital Signs Pulse 123 H 06/02/24 23:10 Pulse 124 H 06/02/24 21:32 Respiratory Rate 25 H 06/03/24 00:52 Respiratory Effort Short of Breath 06/02/24 18:11 Respiratory Depth Shallow 06/02/24 18:11 Respiratory Pattern Normal 06/02/24 18:11 Blood Pressure 66/37 L 06/02/24 21:49 Blood Pressure Mean 226 06/02/24 21:32 Pulse Oximetry 94 06/03/24 00:41 Oxygen Delivery Method Nasal Cannula 06/02/24 18:55 Oxygen Flow Rate 5 06/02/24 18:55 Fraction of Inspired Oxygen (FIO2) 45 06/02/24 23:10 Pain Level 0 06/02/24 18:09 Allergies codeine Allergy (Severe, Verified 06/02/24 18:18) pt unsure of reaction iodine Allergy (Severe, Verified 06/02/24 18:18) pt unsure of reaction Penicillins Allergy (Severe, Verified 06/02/24 18:18) Anaphylaxsis Sulfa (Sulfonamide Antibiotics) Allergy (Severe, Verified 06/02/24 18:18) Swelling/Edema trazodone Adverse Reaction (Intermediate, Verified 06/02/24 18:18) PER PT MAKES HER HEART RACE. Precautions Isolation Standard precaution 06/02/24 18:09 Active Medications Generic Name Dose Route Start Last Admin Trade Name Freq PRN Reason Stop Dose Admin Immune Globulin 20 gm in 200 mls @ 0 mls/hr 06/02/24 23:30 06/03/24 00:50 Privigen 10% IVPB 06/07/24 23:29 21 ml/hr DAILY PATY 21 mls/hr Administration Protocol Per Protocol IV IV Catheter Type [Left Hand] Saline Lock IV Catheter Type [Right Saline Lock Antecubital] IV Catheter Gauge [Left Hand] 20 IV Catheter Gauge [Right 20 Antecubital] Diagnostics 06/02/24 06/02/24 06/02/24 Range/Units 23:13 23:12 19:33 WBC (4.4-10.8) 10^3/uL RBC (3.93-5.22) 10^6/uL Hgb (11.2-15.7) g/dL Hct (36.0-46.0) % MCV (80-95) fL MCH (27.0-33.0) pg MCHC (32.0-36.0) % RDW (11.7-14.6) % Plt Count (130-400) 10^3/uL MPV (8.0-11.0) fL Immature Gran % % Neutrophils % % Lymphocytes % % Monocytes % % Eosinophils % % Basophils % % Nucleated RBC % (0.0-0.3) % Absolute Neutrophils (1.2-6.7) 10^3/uL Absolute Lymphocytes (1.2-3.4) 10^3/uL Absolute Monocytes (0.1-0.8) 10^3/uL Absolute Eosinophils (0.0-0.7) 10^3/uL Absolute Basophils (0.0-0.2) 10^3/uL PT (9.1-11.1) sec INR (0.9-1.1) APTT (23.6-32.8) sec VBG pH 7.27 L 7.28 L (7.31-7.41) VBG pCO2 55 H 59 H (41-51) mmHg VBG pO2 31 31 mmHg VBG HCO3 25 28 (23-28) mmol/L VBG Total CO2 24 27 (24-29) mmol/L VBG O2 Saturation 56 56 % VBG Base Excess -2 2 (-2-3) mmol/L VBG Lactate 1.3 (0.6-1.4) mmol/L Sodium (136-145) mmol/L Potassium (3.5-5.1) mmol/L Chloride (98-107) mmol/L Carbon Dioxide (21.0-32.0) mmol/L Anion Gap (3-11) mmol/L BUN (7-18) mg/dL Creatinine (0.55-1.02) mg/dL Est GFR (CKD-EPI 2020) (mL/min/1.73m2) Glucose (74-106) mg/dL Calcium (8.5-10.1) mg/dL Magnesium (1.8-2.4) mg/dL Total Bilirubin (0.2-1.0) mg/dL AST (15-37) U/L ALT (14-59) U/L Alkaline Phosphatase (46-116) U/L Troponin I 4 (<or=51) ng/L NT-Pro-B Natriuret Pep (<300) pg/mL Total Protein (6.4-8.2) g/dL Albumin (3.4-5.0) g/dL TSH (0.36-3.74) uIU/mL Free T4 (0.76-1.46) ng/dL COVID-19 Source SARS-CoV-2 (PCR) (Negative) Influenza Type A (PCR) (Negative) Influenza Type B (PCR) (Negative) RSV (PCR) (Negative) MRSA (TEM-PCR) Negative (Negative) 06/02/24 06/02/24 Range/Units 19:10 18:27 WBC 14.43 H (4.4-10.8) 10^3/uL RBC 4.38 (3.93-5.22) 10^6/uL Hgb 13.1 (11.2-15.7) g/dL Hct 41.0 (36.0-46.0) % MCV 94 (80-95) fL MCH 29.9 (27.0-33.0) pg MCHC 32.0 (32.0-36.0) % RDW 13.2 (11.7-14.6) % Plt Count 234 (130-400) 10^3/uL MPV 9.0 (8.0-11.0) fL Immature Gran % 0.5 % Neutrophils % 89.3 % Lymphocytes % 5.1 % Monocytes % 4.4 % Eosinophils % 0.5 % Basophils % 0.2 % Nucleated RBC % 0.0 (0.0-0.3) % Absolute Neutrophils 12.89 H (1.2-6.7) 10^3/uL Absolute Lymphocytes 0.74 L (1.2-3.4) 10^3/uL Absolute Monocytes 0.63 (0.1-0.8) 10^3/uL Absolute Eosinophils 0.07 (0.0-0.7) 10^3/uL Absolute Basophils 0.03 (0.0-0.2) 10^3/uL PT 11.0 (9.1-11.1) sec INR 1.1 (0.9-1.1) APTT 38.5 H (23.6-32.8) sec VBG pH (7.31-7.41) VBG pCO2 (41-51) mmHg VBG pO2 mmHg VBG HCO3 (23-28) mmol/L VBG Total CO2 (24-29) mmol/L VBG O2 Saturation % VBG Base Excess (-2-3) mmol/L VBG Lactate (0.6-1.4) mmol/L Sodium 134 L (136-145) mmol/L Potassium 4.4 (3.5-5.1) mmol/L Chloride 96 L (98-107) mmol/L Carbon Dioxide 28.8 (21.0-32.0) mmol/L Anion Gap 9.2 (3-11) mmol/L BUN 50 H (7-18) mg/dL Creatinine 2.0 H (0.55-1.02) mg/dL Est GFR (CKD-EPI 2020) 26.54 (mL/min/1.73m2) Glucose 109 H (74-106) mg/dL Calcium 9.2 (8.5-10.1) mg/dL Magnesium 2.1 (1.8-2.4) mg/dL Total Bilirubin 0.69 (0.2-1.0) mg/dL AST 10 L (15-37) U/L ALT 11 L (14-59) U/L Alkaline Phosphatase 145 H (46-116) U/L Troponin I < 4 (<or=51) ng/L NT-Pro-B Natriuret Pep 1254 H (<300) pg/mL Total Protein 7.6 (6.4-8.2) g/dL Albumin 2.5 L (3.4-5.0) g/dL TSH 0.30 L (0.36-3.74) uIU/mL Free T4 1.33 (0.76-1.46) ng/dL COVID-19 Source NASOPHARYNX SARS-CoV-2 (PCR) Negative (Negative) Influenza Type A (PCR) Negative (Negative) Influenza Type B (PCR) Negative (Negative) RSV (PCR) Negative (Negative) MRSA (TEM-PCR) (Negative) 06/02/24 18:53 Blood Culture - Pending Blood 06/02/24 18:50 Blood Culture - Pending Blood Intake and Output - 24 Hour Total 06/02/24 17:34 thru 06/02/24 20:37 Intake Total 680 Balance 680 Weight 70.7 kg Intake: IV 680 Falls Risk Assessment History of Falls No History 06/02/24 19:19 Contributing Factors No Factors 06/02/24 19:19 Ambulatory Aids Uses ambulatory device + 06/02/24 19:19 Tubes/Lines W/no contributing factors 06/02/24 19:19 Gait Evaluation No gait disturbance 06/02/24 19:19 Cognition No cognitive impairment 06/02/24 19:19 Fall Total Score 40 06/02/24 19:19 Level of Risk Moderate Risk 06/02/24 19:19 Problems (Last Reviewed 06/02/24 @ 22:12 by Dioni Montgomery) Acute respiratory failure with hypoxia and hypercarbia (Acute) Myasthenia gravis (Chronic) Pneumonia (Acute) Hypertension (Chronic) GERD (gastroesophageal reflux disease) (Chronic) Notes 06/02/24 23:28 Respiratory by Kraig James 2022: Pt. was able to performed NIP/MIP up to 30-40. Initialized on 06/02/24 23:28 - END OF NOTE 06/02/24 20:36 Nursing Notes by Sadie Staples Nursing Note:provider updated about increase crackles. stopped bolus. Initialized on 06/02/24 20:36 - END OF NOTE 06/02/24 19:23 Nursing Notes by Sadie Staples Nursing Note: two fentanyl patches removed from right shoulder they were placed on 06/01 Initialized on 06/02/24 19:23 - END OF NOTE v v v v v v v v v Sending and/or Receiving Nurses: Please use comment section below to note any information pertinent to the patient hand-off not included above. Information / Comments: Report received from: Nilton QUEEN
[2024-06-03] MEDS: Metoprolol 12.5 MG TAB PO ×3 (03:04→22:14)
[2024-06-03] MEDS: Acetaminophen 325 MG TAB PO ×3 (03:09→22:12)
[2024-06-03] MEDS: IMMUNE GLOBULIN 10 GM/100 ML BTL IVPB (05:07)
[2024-06-03 06:02] LABS: HCT 34.3 % (36.0-46.0); HGB 11.2 g/dL (11.2-15.7); MCH 30.2 pg (27.0-33.0); MCHC 32.7 % (32.0-36.0); MCV 93 fL (80-95); MPV 9.5 fL (8.0-11.0); Platelet Count 227 10^3/uL (130-400); RBC 3.71 10^6/uL (3.93-5.22); RDW 13.1 % (11.7-14.6); RDW-SD 44.6 fL
[2024-06-03 06:43] LABS: ALT 10 U/L (14-59); AST 12 U/L (15-37); Alkaline Phosphatase 119 U/L (46-116); Anion Gap 9.6 mmol/L (3-11); BUN 50 mg/dL (7-18); Bilirubin, Total 0.74 mg/dL (0.2-1.0); CO2 25.4 mmol/L (21.0-32.0); CREATININE 1.8 mg/dL (0.55-1.02); Calcium 8.8 mg/dL (8.5-10.1); Chloride 97 mmol/L (98-107); Estimated GFR 30.12 (mL/min/1.73m2); Glucose 102 mg/dL (74-106); Potassium 4.4 mmol/L (3.5-5.1); Sodium 132 mmol/L (136-145); Total Protein 7.2 g/dL (6.4-8.2)
--- NOTE | 2024-06-03 08:45 | INITIAL_ITS ---
Date of service: 06/03/24 Time of Service: 08:45 Care Management Initial Assmt Initial Assessment Reason for Hospitalization: pneumonia and respiratory failure Functional Status/Living Situation Patient Presentation: Missy was lying in bed in the ICU when CM met with her. She was pleasant in interaction and engaged easily with CM, well known to her from previous hospitalizations. Missy was transferred to the [facility] for short term rehab last year after a lengthy hospital stay. She has transitioned to [facility] and lives there permanently now.She has no relatives living in the area. Missy has myasthenia gravis and has had a decline in the recent past. She is essentially bed bound at this point and needs assistance with ADLs and toileting. Missy was admitted with pneumonia and is requiring 2L/min of nasal oxygen to maintain her oxygen saturation above 90%. She has been intermittently hypotensive and tachycardic. When CM met with her, she did state that she is feeling better than yesterday and remains afebrile. Town of Residence: [place] Resides with: Other (SNF) Significant Other/Family: Out of area Employment Status: Disabled Instrumental Activities of Daily Living (ADLs): Requires support (needs assistance with all ADLs) Medications Medication Management: No Issues/Barriers identified Advance Directives Advance Directives: Do you have an Advance Directive: N 10/02/22 12:25 AD On File at [facility]: N 10/01/22 09:10 Date Asked 06/03/24 06/03/24 01:17 AD Date Reviewed COLST On File at [facility] Yes 10/01/22 09:10 COLST Date Scanned 10/30/20 10/01/22 09:10 Code Status Resuscitation Status DNR/DNI Portal Pt does not currently have a portal and education provided: No Portal Education: Patient declined Insurance Coverage/Financial Issues Insurance: [facility] Care Team Visit Care Team Role Provider Type Marni Friedman Primary Care Provider [facility] STAFF PHYSICIAN Ruddy Downing MD Emergency Provider [facility] STAFF PHYSICIAN Dioni Montgomery Admit Provider [facility] STAFF PHYSICIAN Attending Provider Discharge Potential Discharge Needs: Other (return to the [facility]) Anticipated Barriers to Discharge: None Identified Patient/Family Education Needs: Review discharge instructions, discuss Ask Me Three Transportation: EMS Plan: Anticipate Missy will be transferred back to the [facility] when medically stable. She will follow up with the facility providers and plan of care and transport via EMS coordinated by CM. CM will follow and continue to assess for discharge needs. [facility] All Active Problems Acute respiratory failure with hypoxia and hypercarbia (Acute) Myasthenia gravis (Chronic) Pneumonia (Acute) Nail dystrophy (Acute) Ambulatory dysfunction (Acute) Hypertension (Chronic) GERD (gastroesophageal reflux disease) (Chronic) Myasthenia gravis (Chronic) Neuropathic pain of both legs (Chronic) Weakness (Acute) Pain (Acute) Frequent falls (Chronic) Constipation, chronic (Chronic) Neurogenic bladder (Chronic) Closed fracture of left distal femur (Acute 09/25/22) Medical History UTI (urinary tract infection) Urine abnormality Palliative care patient Fluid collection at surgical site Oropharyngeal dysphagia Atelectasis External bleeding hemorrhoids Palliative care patient Elevated troponin Tachycardia Neurogenic bowel Fluid collection at surgical site Prerenal azotemia Hypomagnesemia Acute hypokalemia Hypoxia Acute hyponatremia Bursitis of left shoulder Rupture of left proximal biceps tendon Ulnar neuropathy of left upper extremity Carpal tunnel syndrome of left wrist Left shoulder pain Gastric ulcer Protein malnutrition Generalized weakness Urinary retention DNI (do not intubate) DNR (do not resuscitate) POLST (Physician Orders for Life-Sustaining Treatment) COLST completed 10/30/2020 with MAUREEN Marley, DNR/DNI Former smoker Spinal stenosis Urinary frequency History of lacunar cerebrovascular accident Ataxia Left hand weakness Hypokalemia Peripheral neuropathy Arachnoid cyst Chronic renal insufficiency Dental caries History of gluten intolerance Bunion of unspecified foot Prediabetes Chronic pain Spasticity Asymptomatic microscopic hematuria Left arm weakness Migraine headache without aura Syrinx of spinal cord Starting at C3 and extending to T11 Intracranial arachnoid cyst Hyperlipidemia COPD (chronic obstructive pulmonary disease) Alcohol abuse history of Insomnia previous misuse of Ambien Anxiety Depression Surgical History H/O esophagogastroduodenoscopy (~07/2021) 09/2021 H/O craniotomy ; L cerebellar arachnoid cyst drain with shunt placement S/P cystourethroscopy with dilation of urethral stricture H/O thymectomy S/P appendectomy S/P tonsillectomy Family History Mother , 90 Diabetes Hypertension Stroke Father , 73 Neuropathy Back problem Depression Heart disease Stroke Brother Myasthenia gravis Depression Maternal Grandfather , 80's Diabetes Paternal Grandfather , 50 Heart disease Maternal Grandmother , 80 No problems noted. Paternal Grandmother , 70 No problems noted. Social History Smoking/Tobacco Use Status: Former Tobacco Use tobacco type: cigarettes Quit Date: 08/15/16 Tobacco: How many years used: 35 Smoking risk assessment performed?: Yes Alcohol Intake: former Drug use: Never Substance use type: does not use Household members: other Housing: assisted living facility Number of Children: 0 Pets and animals: No Current gender identity: female What type of physical activity do you participate in: none Seatbelt use: always Do you feel safe at home: Yes (Pt lives alone) Do you feel safe in your relationship?: Yes SDOH(Care Management) Screening Will the Patient Participate in the Screening?: Declined to provide Do you worry about having a steady place to live?: no In the past 12 months, have you had to go without electric, gas, oil or water in your home?: no Have you or anyone in your house had to go without enough food to eat?: no Has lack of transportation kept you from medical appointments or from doing things needed for daily living?: no Has anyone in your support network made you feel unsafe for any reason?: no
[2024-06-03] MEDS: Enoxaparin 30 MG/0.3 ML SYR SC (09:34)
[2024-06-03] MEDS: Pantoprazole 40 MG VIAL IVP (09:39)
[2024-06-03] MEDS: Normal Saline Flush 10 ML SYR IVP ×2 (09:39→22:18)
[2024-06-03] MEDS: Furosemide 20 MG TAB PO (09:40)
[2024-06-03] MEDS: Cholecalciferol (Vitamin D3) 1,000 UNIT TAB 2000 UNITS PO (09:40)
[2024-06-03] MEDS: Vitamins B Comp w/C TAB 1 TAB PO (09:40)
[2024-06-03] MEDS: Lisinopril 10 MG TAB PO (09:40)
[2024-06-03] MEDS: Lidocaine 5% Patch 1 PATCH TD (09:41)
[2024-06-03] MEDS: fentaNYL 100 MCG PATCH TD (10:27)
[2024-06-03 11:14] LABS: Bilirubin Negative (Negative); Blood Moderate (Negative); Clarity Sl Cloudy (Clear); Glucose Negative (Negative); Ketones Negative (Negative); Leukocyte Esterase Small (Negative); Nitrite Negative (Negative); Urobilinogen 0.2 mg/dL (Up to 0.2); pH 5.5 (5-8)
[2024-06-03 11:22] LABS: Bacteria Few HPF (Negative); C & S Indicated? C&S Done As Ordered; Casts Negative LPF (Negative); Crystals Negative HPF (Negative); Epithelial Cells Few HPF (Negative); Mucus Negative (Negative); RBC 0-2 HPF (0-2)
[2024-06-03] MEDS: fentaNYL 25 MCG PATCH TD (11:27)
[2024-06-03] MEDS: Gabapentin 300 MG CAP PO ×2 (22:12→22:13)
[2024-06-03] MEDS: Zolpidem 5 MG TAB 10 MG PO (22:13)
[2024-06-03] MEDS: Melatonin 3 MG TAB 9 MG PO (22:14)
[2024-06-03] MEDS: Sennosides/Docusate Sodium TAB 1 TAB PO (22:14)
[2024-06-03] MEDS: Lidocaine Patch Removal 1 EACH TP (23:35)
[2024-06-04] VITALS (98 sets, daily range): BP systolic 75–135; BP diastolic 47–121; PULSE 72–139; RESP 10–21; TEMP 36.4–37.1; O2SAT 85–97
[2024-06-04] MEDS: MORPHine 2 MG/ML SYR IVP ×2 (00:59→20:31)
[2024-06-04] MEDS: Normal Saline 1,000 ML 1000 ML IV (03:43)
[2024-06-04] MEDS: LORazepam 2 MG/ML VIAL 1 MG IVP (05:36)
--- NOTE | 2024-06-04 06:30 | NUR.NOTE ---
Nursing Note: Pt sitting up in bed, not removing hospital equipment, pt awake, pleasantly confused, denies pain or sob, on 2lnc, o2 sat=93%, bed in lowest position, call light within reach, will monitor.
--- NOTE | 2024-06-04 08:20 | PGE_ITS ---
Date of Service Date of service: 06/04/24 Time of Service: 08:20 Assessment and Plan Assessment and plan (1) Acute respiratory failure with hypoxia and hypercarbia: Start date: 06/02/24 Status: Acute Assessment and plan: Patient has been given access to BiPAP on and off as needed Continues on nasal cannula at this time Component of pneumonia present Levaquin stopped and switched to ertapenem due to potential issues with Levaquin in this patient, drug interactions and exacerbation of myasthenia gravis May transition to MedSurg status today Patient remains a DNR/DNI. It is medically necessary that Missy receive an IV therapy when DC'd to treat chronic respiratory failure secondary to neuromuscular disease with a diagnosis of advanced myasthenia gravis and no other standard devices such as traditional or standard CPAP or BiPAP as a would not be most effective device in treating this patient's complex needs due to the following: NIV is the only optimum therapy device as it would be the most effective in managing the current comorbidities as a long-term plan. An IV equipped with AVAPS AE mode is exclusive to NIV devices and will be used during the sleeping hours to support Missy with her complex ventilation needs including: A varying tidal volume and minute ventilation based on ideal body weight. It will decrease work of breathing, decreased carbon dioxide retention and hypercarbia, increasing oxygenation and allow for long respiratory phase to reduce the effects of low limitation, air trapping and breath stacking. This will improve her overall quality of life and further reduce hospitalizations that will certainly occur without proper treatment. The patient can also use the secondary mode in the send IV device, mouthpiece ventilation MPV. This would be used during the daytime waking hours to help with shortness of breath via mouth piece. The NIV operates on a battery which will allow for continued usage even despite power outage as or for doctor appointments as labs or inability to utilize a therapy may result in a life-threatening consequence. [place] which may have frequent power outages. A traditional CPAP or BiPAP unit is not equipped with battery backup and would cease to operate leaving this dependent patient without adequate ventilatory support. NIV is also equipped with alarms not found in standard BiPAP devices that can alert caregivers to the patient in the event of an emergency. Treatment of NIV is absolutely medically necessary and will allow the patient to remain safely at home, treated for her respiratory failure, hypoventilation and hypercarbia despite these underlying chronic medical issues. Denial of this requested prescription will leave the patient in great need with no alternative care. Only frequent recurrent hospitalizations. This patient who does not have underlying lung disease but has a primary degenerative neuromuscular disease is in great need of such support. Jose Roberto Haq DO (2) Pneumonia: Start date: 06/02/24 Status: Acute Assessment and plan: Continues on renal dose adjusted ertapenem 500 mg IV every 24 hours Creatinine clearance approximately 30 mL/min Tolerating medication without incident Qualifiers: Laterality: left Lung location: lower lobe of lung Pneumonia type: due to unspecified organism Qualified Code(s): J18.9 - Pneumonia, unspecified organism (3) Myasthenia gravis: Status: Chronic Assessment and plan: Patient appears to be having a myasthenia gravis crisis with her acute respiratory infection but has been on a slowly deteriorating course over the last months. IVIG as per neurology at [facility] for 5 days. Continue outpatient medical therapy same. Supportive care. Avoid medications with potential for exacerbation of her myasthenia gravis Patient is completing her IVIG therapy (4) Hypertension: Status: Chronic Assessment and plan: Continue to monitor Qualifiers: Hypertension type: primary hypertension Qualified Code(s): I10 - Essential (primary) hypertension (5) GERD (gastroesophageal reflux disease): Status: Chronic Assessment and plan: Transition to oral PPI pending swallow study. Qualifiers: Esophagitis presence: without esophagitis Qualified Code(s): K21.9 - Gastro-esophageal reflux disease without esophagitis Subjective Subjective Interval history since last seen: Clinical course reviewed including notes, orders, labs, vitals, meds, imaging, and cultures. Care is discussed with primary nurse. Exam Narrative Exam Narrative: Clinical course reviewed including notes, orders, labs, vitals, meds, imaging, and cultures. Care is discussed with primary nurse. Objective Last Vital Signs Temp 37.1 C 06/04/24 04:00 Pulse 107 H 06/04/24 06:02 Resp 19 06/04/24 06:03 BP 135/121 H 06/04/24 06:02 Pulse Ox 97 06/04/24 07:44 Laboratory Results - last 24 hr 06/03/24 10:40 Urine Color Yellow Urine Clarity Sl Cloudy Urine pH 5.5 Ur Specific [place] 1.010 Urine Protein Negative Urine Ketones Negative Urine Blood Moderate H Urine Nitrite Negative Urine Bilirubin Negative Urine Urobilinogen 0.2 Ur Leukocyte Esterase Small H Urine RBC 0-2 Urine WBC 5-10 Ur Epithelial Cells Few Urine Crystals Negative Urine Bacteria Few Urine Casts Negative Urine Mucus Negative Ur Culture Indicated? C&S Done As Ordered Urine Glucose Negative Time Spent with Patient Time Spent with Patient: 35-49 minutes Time was spent: preparing to see the patient(eg.review tests), obtaining and/or reviewing separately otained hiistory, ordering medications,tests, procedures, referring, communicating with other health medicare interviewer, indepentently interpreting results, counseling the patient and care coordination
[2024-06-04] MEDS: Normal Saline Flush 10 ML SYR IVP ×3 (09:00→21:22)
[2024-06-04] MEDS: Pantoprazole 40 MG VIAL IVP (09:00)
[2024-06-04] MEDS: Vitamins B Comp w/C TAB 1 TAB PO (09:05)
[2024-06-04] MEDS: Lidocaine 5% Patch 1 PATCH TD (09:07)
[2024-06-04] MEDS: Enoxaparin 30 MG/0.3 ML SYR SC (09:08)
[2024-06-04] MEDS: Cholecalciferol (Vitamin D3) 1,000 UNIT TAB 2000 UNITS PO (09:10)
[2024-06-04] MEDS: Gabapentin 300 MG CAP PO ×2 (09:10→20:18)
[2024-06-04] MEDS: Furosemide 20 MG TAB PO (09:10)
[2024-06-04] MEDS: Mirabegron 50 MG TABCR PO (09:22)
--- NOTE | 2024-06-04 09:42 | PDOC.CMPRO ---
Date of service: 06/04/24 Time of Service: 09:42 Care Management Progress Note Progress Note Text Progress Note Text: Missy was sitting up in bed when CM met with her. She seemed a little confused and was not sure where she is. CM received a call from the [facility] today asking if Missy wished for them to contact her friend Nina and let her know she is here. Missy stated that Nina visited yesterday, so there was no need to call her. Clinically Missy is doing better. The provider inquired if it was possible to get Cpap for Missy as it might help with her myasthenia. RT informed CM that they are working on it. Missy was in agreement if it can be arranged. Discharge Potential Discharge Needs: Other (SNF - [facility]) Anticipated Barriers to Discharge: None Identified Patient/Family Education Needs: Review discharge instructions, discuss Ask Me Three Transportation: EMS (Anticipate Missy will be transferred back to the) Plan: Anticipate Missy will return to the [facility] when medically stable. She will follow up with the facility providers and plan of care and transport via EMS coordinated by CM. CM will follow and continue to assess for discharge needs. SDOH(Care Management) Screening Will the Patient Participate in the Screening?: Declined to provide Do you worry about having a steady place to live?: no In the past 12 months, have you had to go without electric, gas, oil or water in your home?: no Have you or anyone in your house had to go without enough food to eat?: no Has lack of transportation kept you from medical appointments or from doing things needed for daily living?: no Has anyone in your support network made you feel unsafe for any reason?: no
[2024-06-04] MEDS: IMMUNE GLOBULIN 40 GM/400 ML BTL IVPB (09:48)
[2024-06-04 11:04] LABS: Abs Immature Grans 0.06 10^3/uL (0.0-0.06); Absolute Basophil Count 0.03 10^3/uL (0.0-0.2); Absolute Eosinophil Count 0.09 10^3/uL (0.0-0.7); Absolute Lymphocyte Count 0.68 10^3/uL (1.2-3.4); Absolute Monocyte Count 0.47 10^3/uL (0.1-0.8); Absolute Neutrophil Count 6.83 10^3/uL (1.2-6.7); Basophils % 0.4 %; Eosinophils % 1.1 %; HCT 36.6 % (36.0-46.0); HGB 11.7 g/dL (11.2-15.7); Immature Grans % 0.7 %; Lymphocytes % 8.3 %; MCH 29.8 pg (27.0-33.0); MCV 93 fL (80-95); MPV 9.9 fL (8.0-11.0); Monocytes % 5.8 %; Neutrophils % 83.7 %; Platelet Count 215 10^3/uL (130-400); RBC 3.93 10^6/uL (3.93-5.22); RDW 13.5 % (11.7-14.6); WBC 8.16 10^3/uL (4.4-10.8)
[2024-06-04 11:18] LABS: ALT 13 U/L (14-59); AST 22 U/L (15-37); Albumin 1.9 g/dL (3.4-5.0); Alkaline Phosphatase 105 U/L (46-116); Anion Gap 7.9 mmol/L (3-11); BUN 43 mg/dL (7-18); Bilirubin, Total 0.31 mg/dL (0.2-1.0); CO2 27.1 mmol/L (21.0-32.0); CREATININE 1.4 mg/dL (0.55-1.02); Chloride 105 mmol/L (98-107); Estimated GFR 40.73 (mL/min/1.73m2); Glucose 84 mg/dL (74-106); Potassium 3.8 mmol/L (3.5-5.1); Sodium 140 mmol/L (136-145); Total Protein 7.3 g/dL (6.4-8.2)
--- NOTE | 2024-06-04 12:29 | SP_ITS ---
Date of service: 06/04/24 Time of Service: 09:15 Subjective Clinical (Bedside) Swallow Evaluation Speech Language Pathology Referred by: Dr Haq Referral Type: Clinical Swallow Evaluation Reason for Referral/HPI: Missy Kim is a 69 yo female who was adm to [facility] 06/03/24 with L LL pneumonia. Missy has a history significant for myasthenia gravis. She lives in a shelter. PRINCIPAL ARCHAEOLOGIST IMPRESSIONS & RECOMMENDATIONS: Missy was seen for non-instrumental swallow evaluation with breakfast tray. She denies dysphagia or unintended weight loss at baseline and reports this is her first pneumonia since her 20s. Nursing does note a coughing episode with scrambled eggs prior to PRINCIPAL ARCHAEOLOGIST arrival. Missy presents as deconditioned to baseline, currently on nasal cannula. She was able to self-feed though benefiting from some assist with placing down cup/plate. No overt s/s dysphagia appreciated with PO trials observed. Education provided to patient re: dysphagia risk with Myasthenia Gravis and increased risk for aspiration during deconditioned state, with encouragement to reduce bite/sip size, chew thoroughly, request food be cut up as needed. Patient verbalized comprehension of education provided. FURTHER PRINCIPAL ARCHAEOLOGIST SERVICES: Patient to be followed while on unit. Upon Discharge, do not anticipate further PRINCIPAL ARCHAEOLOGIST services Diet Recommendations: SOLIDS: 7-Regular Solids - Please assist in cutting up food and tray set up LIQUIDS: 0-Thin Liquids MEDICATIONS: Whole with 0-Thin Liquids RISK MANAGEMENT: HOB upright as tolerated; upright for all PO intake. Oral hygiene BID/2x per day Level of Assistance/Supervision: Intermittent Supervision/assist as indicated SUBJECTIVE: Patient received alert/awake, oriented to self/situation/place, agreeable to evaluation Pain Reported? None Baseline Swallow Function: Patient denies swallowing difficulty prior to admission and eats a regular diet at baseline. PO Trials Assessed: IDDSI 0 Thin Liquids - Water via straw, coffee IDDSI 4 Puree - Oatmeal IDDSI 6 Soft & Bite Size Solid - Scrambled eggs Oral Mechanism Examination: Dentition is WFL Cranial Nerve Assessment: CN V ? Trigeminal Facial Sensation WNL Jaw Strength/ROM WNL ?WNL CN VII- Facial WNL labial ROM, strength, coordination. WNL lingual sensation WNL CN IX ? Glossopharyngeal WNL palatal elevation with phonation. No evidence of nasal emissions WNL CN X ? Vagus WNL Vocal quality and volume. Strong/sharp volitional cough WNL CX XII ? Hypoglossal WNL lingual ROM, strength, coordination WNL Oral Phase Findings: Prolonged chewing Pharyngeal Phase Findings: WFL ASSESSMENT: Further PRINCIPAL ARCHAEOLOGIST Services indicated. Patient to be followed while on unit. Recommendation at Discharge: To be determined. Do not anticipate will require ongoing PRINCIPAL ARCHAEOLOGIST treatment post discharge Suggested Referrals: N/A Education Provided to: Nursing, Patient Topics Addressed: PRINCIPAL ARCHAEOLOGIST findings, aspiration precautions PLAN: Frequency: 1-2x/week for 1-2 weeks Goals: Pediatric Hospitalist Goals: Patient will remain free from aspiration-related illness, malnutrition, and dehydration. Short Term Goals: Patient will tolerate regular Diet and Thin liquids without overt s/s aspiration across 2/2 visits. PRINCIPAL ARCHAEOLOGIST CPT Code: 75886 Clinical Swallowing Evaluation TOTAL TIME:20 Minutes [phone]
[2024-06-04] MEDS: Zolpidem 5 MG TAB 10 MG PO (20:18)
[2024-06-04] MEDS: Sennosides/Docusate Sodium TAB 1 TAB PO (20:18)
[2024-06-04] MEDS: Melatonin 3 MG TAB 9 MG PO (20:32)
[2024-06-04] MEDS: Lidocaine Patch Removal 1 EACH TP (21:21)
[2024-06-04] MEDS: hydrOXYzine HCL 25 MG TAB PO (22:36)
[2024-06-05] VITALS (35 sets, daily range): BP systolic 90–140; BP diastolic 65–104; PULSE 75–119; RESP 12–25; TEMP 36.7–36.8; O2SAT 92–97
[2024-06-05] MEDS: Metoprolol 12.5 MG TAB PO ×2 (00:01→19:44)
[2024-06-05 05:57] LABS: Abs Immature Grans 0.24 10^3/uL (0.0-0.06); Absolute Basophil Count 0.04 10^3/uL (0.0-0.2); Absolute Eosinophil Count 0.13 10^3/uL (0.0-0.7); Absolute Lymphocyte Count 0.99 10^3/uL (1.2-3.4); Absolute Monocyte Count 0.57 10^3/uL (0.1-0.8); Absolute Neutrophil Count 4.35 10^3/uL (1.2-6.7); Basophils % 0.6 %; Eosinophils % 2.1 %; HCT 32.4 % (36.0-46.0); HGB 10.4 g/dL (11.2-15.7); Immature Grans % 3.8 %; Lymphocytes % 15.7 %; MCH 29.3 pg (27.0-33.0); MCHC 32.1 % (32.0-36.0); MCV 91 fL (80-95); MPV 9.1 fL (8.0-11.0); Neutrophils % 68.8 %; Platelet Count 254 10^3/uL (130-400); RBC 3.55 10^6/uL (3.93-5.22); RDW 13.2 % (11.7-14.6); RDW-SD 43.9 fL; WBC 6.32 10^3/uL (4.4-10.8)
[2024-06-05 06:15] LABS: ALT 10 U/L (14-59); AST 15 U/L (15-37); Albumin 1.8 g/dL (3.4-5.0); Alkaline Phosphatase 96 U/L (46-116); Anion Gap 6.5 mmol/L (3-11); BUN 36 mg/dL (7-18); Bilirubin, Total 0.33 mg/dL (0.2-1.0); CO2 27.5 mmol/L (21.0-32.0); CREATININE 1.2 mg/dL (0.55-1.02); Calcium 9.1 mg/dL (8.5-10.1); Chloride 102 mmol/L (98-107); Glucose 84 mg/dL (74-106); Potassium 3.6 mmol/L (3.5-5.1); Sodium 136 mmol/L (136-145); Total Protein 8.3 g/dL (6.4-8.2)
--- NOTE | 2024-06-05 07:54 | PGE_ITS ---
Date of Service Date of service: 06/05/24 Time of Service: 07:54 Assessment and Plan Assessment and plan (1) Acute respiratory failure with hypoxia and hypercarbia: Start date: 06/02/24 Status: Acute Assessment and plan: Patient has been given access to BiPAP on and off as needed Continues on nasal cannula at this time Component of pneumonia present Levaquin stopped and switched to ertapenem due to potential issues with Levaquin in this patient, drug interactions and exacerbation of myasthenia gravis May transition to MedSurg status today Patient remains a DNR/DNI. It is medically necessary that iMssy receive an IV therapy when DC'd to treat chronic respiratory failure secondary to neuromuscular disease with a diagnosis of advanced myasthenia gravis and no other standard devices such as traditional or standard CPAP or BiPAP as a would not be most effective device in treating this patient's complex needs due to the following: NIV is the only optimum therapy device as it would be the most effective in managing the current comorbidities as a long-term plan. An IV equipped with AVAPS AE mode is exclusive to NIV devices and will be used during the sleeping hours to support Missy with her complex ventilation needs including: A varying tidal volume and minute ventilation based on ideal body weight. It will decrease work of breathing, decreased carbon dioxide retention and hypercarbia, increasing oxygenation and allow for long respiratory phase to reduce the effects of low limitation, air trapping and breath stacking. This will improve her overall quality of life and further reduce hospitalizations that will certainly occur without proper treatment. The patient can also use the secondary mode in the send IV device, mouthpiece ventilation MPV. This would be used during the daytime waking hours to help with shortness of breath via mouth piece. The NIV operates on a battery which will allow for continued usage even despite power outage as or for doctor appointments as labs or inability to utilize a therapy may result in a life-threatening consequence. [place] have frequent [place] out[place]. A traditional CPAP or BiPAP unit is not equipped with battery backup and would cease to operate leaving this dependent patient without adequate ventilatory support. NIV is also equipped with alarms not found in standard BiPAP devices that can alert caregivers to the patient in the event of an emergency. Treatment of NIV is absolutely medically necessary and will allow the patient to remain safely at home, treated for her respiratory failure, hypoventilation and hypercarbia despite these underlying chronic medical issues. Denial of this requested prescription will leave the patient in great need with no alternative care. Only frequent recurrent hospitalizations. This patient who does not have underlying lung disease but has a primary degenerative neuromuscular disease is in great need of such support. Jose Roberto Haq DO (2) Pneumonia: Start date: 06/02/24 Status: Acute Assessment and plan: Continues on renal dose adjusted ertapenem 500 mg IV every 24 hours Creatinine clearance approximately 30 mL/min Tolerating medication without incident Qualifiers: Laterality: left Lung location: lower lobe of lung Pneumonia type: due to unspecified organism Qualified Code(s): J18.9 - Pneumonia, unspecified organism (3) Myasthenia gravis: Status: Chronic Assessment and plan: Patient appears to be having a myasthenia gravis crisis with her acute respiratory infection but has been on a slowly deteriorating course over the last months. [place] [facility] [place] Continue outpatient medical therapy same. Supportive care. Avoid medications with potential for exacerbation of her myasthenia gravis Patient is completing her IVIG therapy (4) Hypertension: Status: Chronic Assessment and plan: Continue to monitor Qualifiers: Hypertension type: primary hypertension Qualified Code(s): I10 - Essential (primary) hypertension (5) GERD (gastroesophageal reflux disease): Status: Chronic Assessment and plan: Transition to oral PPI pending swallow study. Qualifiers: Esophagitis presence: without esophagitis Qualified Code(s): K21.9 - Gastro-esophageal reflux disease without esophagitis Subjective Subjective Interval history since last seen: Clinical course reviewed including notes, orders, labs, vitals, meds, imaging, and cultures. Care is discussed with primary nurse. Patient continues on ertapenem, tolerating well Afebrile blood pressure measured at 97/65 with a mean of 75 O2 sat is 94% on 1 L nasal cannula patient's isolation no is -3 L since admission White count 6.3, hemoglobin 10.4, platelet count 254 Serum sodium 136 creatinine 1.2 patient's baseline is about 1.5-1.6. Urine culture from suprapubic catheter source is growing multiple different organisms including gram-positive greater than 100,000 CFU per mL as well as gram-negative greater than 100,000 CFU per mL. No blood cultures pending. Patient NIF is measured at 15 today. Exam Narrative Exam Narrative: Patient is alert and oriented x 3 and in no acute distress. Patient is evaluated in ICU. HEENT: Neck supple, MM pink and moist, conjunctiva non-injected, sclera non- icteric, Pupils equal and reactive to light symmetrically, no JVD, no A waves. No thyromegaly. No carotid bruit CHEST: Bilaterally symmetrical with inspiration and expiration. No use of accessory muscles of respiration. No nasal flaring. RESP: Clear to auscultation bilaterally, no rales, rhonchi or wheeze, no pleural friction rub, no post-tussive crackles or apical rales. COR: RRR without murmur, normal S1, S2, no rub or gallop ABDOMEN: Soft, non tender diffusely, normally active bowel sounds diffusely, No hepatosplenomegaly, No abdominal bruit, no masses, no tenderness on deep abdominal palpation. G/U: deferred Rectal: deferred MUSCULOSKELETAL: Bilaterally symmetrical, no muscle belly tenderness or mass DERMIS: Skin warm and dry, no ulcers or rashes, EXTREMITIES: No cyanosis, clubbing or edema, no gross deformities of the large or small joints of the upper or lower extremities. NEUROLOGICAL: Cranial nerves intact II-XII without notable deficit, No peripheral neurosensory or motor deficits noted. LYMPH: No anterior or posterior cervical, no supraclavicular, No axillary, no epitrochlear or femoral lymphadenopathy.. Objective Last Vital Signs Temp 36.8 C 06/05/24 03:00 Pulse 75 06/05/24 04:02 Resp 12 06/05/24 05:00 BP 97/65 L 06/05/24 04:02 Pulse Ox 94 06/05/24 05:00 Laboratory Results - last 24 hr 06/04/24 06/05/24 10:50 05:20 WBC 8.16 6.32 RBC 3.93 3.55 L Hgb 11.7 10.4 L Hct 36.6 32.4 L MCV 93 91 MCH 29.8 29.3 MCHC 32.0 32.1 RDW 13.5 13.2 Plt Count 215 254 MPV 9.9 9.1 Immature Gran % 0.7 3.8 Neutrophils % 83.7 68.8 Lymphocytes % 8.3 15.7 Monocytes % 5.8 9.0 Eosinophils % 1.1 2.1 Basophils % 0.4 0.6 Nucleated RBC % 0.0 0.0 Absolute Neutrophils 6.83 H 4.35 Absolute Lymphocytes 0.68 L 0.99 L Absolute Monocytes 0.47 0.57 Absolute Eosinophils 0.09 0.13 Absolute Basophils 0.03 0.04 Sodium 140 136 Potassium 3.8 3.6 Chloride 105 102 Carbon Dioxide 27.1 27.5 Anion Gap 7.9 6.5 BUN 43 H 36 H Creatinine 1.4 H 1.2 H Est GFR (CKD-EPI 2020) 40.73 49.00 Glucose 84 84 Calcium 9.0 9.1 Total Bilirubin 0.31 0.33 AST 22 15 ALT 13 L 10 L Alkaline Phosphatase 105 96 Total Protein 7.3 8.3 H Albumin 1.9 L 1.8 L Time Spent with Patient Time Spent with Patient: >50 minutes Time was spent: preparing to see the patient(eg.review tests), obtaining and/or reviewing separately otained hiistory, ordering medications,tests, procedures, referring, communicating with other health rn palliative care, indepentently interpreting results, counseling the patient and care coordination
--- NOTE | 2024-06-05 09:03 | CMPROGNOTE_ITS ---
Date of service: 06/05/24 Time of Service: 09:03 Care Management Progress Note Progress Note Text Progress Note Text: Missy was lying in bed when CM met with her. She stated that she is doing ok today, but that it has been a busy day and she is tired. CM reviewed the plan for her to return to the [facility] once she is medically cleared, which she expressed understanding about, and is happy to return. CM will continue to follow. Discharge Potential Discharge Needs: PCP F/U Appt Anticipated Barriers to Discharge: None Identified Patient/Family Education Needs: Review discharge instructions, discuss Ask Me Three Transportation: EMS (patient is bedbound) Plan: Anticipate Missy will return to the [facility] when medically stable. She will follow up with the facility providers and plan of care and transport via EMS coordinated by CM. CM will follow and continue to assess for discharge needs. SDOH(Care Management) Screening Will the Patient Participate in the Screening?: Declined to provide Do you worry about having a steady place to live?: no In the past 12 months, have you had to go without electric, gas, oil or water in your home?: no Have you or anyone in your house had to go without enough food to eat?: no Has lack of transportation kept you from medical appointments or from doing things needed for daily living?: no Has anyone in your support network made you feel unsafe for any reason?: no
[2024-06-05] MEDS: Vitamins B Comp w/C TAB 1 TAB PO (09:43)
[2024-06-05] MEDS: Cholecalciferol (Vitamin D3) 1,000 UNIT TAB 2000 UNITS PO (09:43)
[2024-06-05] MEDS: Mirabegron 50 MG TABCR PO (09:43)
[2024-06-05] MEDS: Gabapentin 300 MG CAP PO ×2 (09:43→19:43)
[2024-06-05] MEDS: fentaNYL 25 MCG PATCH TD (09:48)
[2024-06-05] MEDS: Pantoprazole 40 MG VIAL IVP (09:48)
[2024-06-05] MEDS: Enoxaparin 40 MG/0.4 ML SYR SC (09:48)
[2024-06-05] MEDS: Lidocaine 5% Patch 1 PATCH TD (09:49)
[2024-06-05] MEDS: Furosemide 20 MG TAB PO (09:50)
[2024-06-05] MEDS: Normal Saline Flush 10 ML SYR IVP ×3 (09:51→20:13)
[2024-06-05] MEDS: fentaNYL 100 MCG PATCH TD (09:55)
[2024-06-05] MEDS: IMMUNE GLOBULIN 20 GM/200 ML BTL IVPB (11:35)
--- NOTE | 2024-06-05 13:05 | STREC_ITS ---
Date of service: 06/05/24 Time of Service: 13:05 Speech Therapy Recommendations Report ST Recommendations: DEPARTMENT SECRETARY discussed patient with RN this date who reports patient has not had any specific difficulties with diet texture and no episodes concerning for aspiratio n. Reviewed recommendations with nursing and common issues with MG such as progressive fatigue throughout meal, reviewed energy conservation strategies. Per RN, patient reports minimal appetite which is primary barrier to PO intake currently. Diet recommendations / aspiration precautions remain in place as below: Diet Recommendations: SOLIDS: 7-Regular Solids - Please assist in cutting up food and tray set up LIQUIDS: 0-Thin Liquids MEDICATIONS: Whole with 0-Thin Liquids RISK MANAGEMENT: HOB upright as tolerated; upright for all PO intake. Oral hygiene BID/2x per day Level of Assistance/Supervision: Intermittent Supervision/assist as indicated
--- NOTE | 2024-06-05 13:19 | PHACLINREV_ITS ---
Pharmacy Admission Review Admission Clinical Review Admission Pharmacy Review: Acute respiratory failure with hypoxia and hypercarbia (Acute) Pneumonia (Acute) codeine Allergy (Severe, Verified 06/02/24 18:18) pt unsure of reaction iodine Allergy (Severe, Verified 06/02/24 18:18) pt unsure of reaction Penicillins Allergy (Severe, Verified 06/02/24 18:18) Anaphylaxsis Sulfa (Sulfonamide Antibiotics) Allergy (Severe, Verified 06/02/24 18:18) Swelling/Edema trazodone Adverse Reaction (Intermediate, Verified 06/02/24 18:18) PER PT MAKES HER HEART RACE. Resuscitation Status DNR/DNI Height 5 ft 1 in Weight 73.9 kg Pharmacy Admission Review Renal Dosing Renal Dosing: BUN 36 mg/dL (7-18) H 06/05/24 05:20 Creatinine 1.2 mg/dL (0.55-1.02) H 06/05/24 05:20 Medications needing adjustments: Intervened (CrCl 40.63mL/min, BUN decreased from 43 and SCr decreased from 1.4) List of meds needing interventions: Changed enoxaparin from 30mg daily to 40mg daily and ertapenem from 500mg daily to 1g daily due to CrCl now > 30 mL/min. Anticoagulation Anticoagulation: Hgb 10.4 g/dL (11.2-15.7) L 06/05/24 05:20 Hct 32.4 % (36.0-46.0) L 06/05/24 05:20 Plt Count 254 10^3/uL (130-400) 06/05/24 05:20 INR 1.1 (0.9-1.1) 06/02/24 18:27 Creatinine 1.2 mg/dL (0.55-1.02) H 06/05/24 05:20 DVT Prophylaxis: Intervened (see above - renal dose adjustment, Hgb decreased from 11.7) Medications: Enoxaparin (40mg daily) Opiate Usage Evaluate Pain Scale/Pains Meds: Reviewed (Fentanyl patch 125mcg total and PRN IVP morphine (2 doses given)) Scheduled Bowel Reg ordered if on Opiates?: Yes (senna/docusate) Relevant Labs Relevant Labs: Sodium 136 mmol/L (136-145) 06/05/24 05:20 Potassium 3.6 mmol/L (3.5-5.1) 06/05/24 05:20 Chloride 102 mmol/L (98-107) 06/05/24 05:20 Magnesium 2.1 mg/dL (1.8-2.4) 06/02/24 18:27 Electrolytes, C-Reactive P, ESR: Reviewed Cardiac Review Cardiac Review: Troponin I 4 ng/L (<or=51) 06/02/24 19:33 NT-Pro-B Natriuret Pep 1254 pg/mL (<300) H 06/02/24 18:27 Blood Pressure 97/65 0402 Blood Pressure 98/65 0300 BP, HR, EF%: Reviewed (HR WNL) List meds needing interventions: Has order for amlodipine 2.5mg daily, furosemide 20mg daily, lisinopril 10mg daily and metoprolol 12.5mg BID QTc Review QTc: Reviewed (453 from 06/02/24) IV to PO Switch IV Medications: Intervened (ertapenem, Privigen and morphine - spoke to provider about changing pantoprazole from IV to PO. Provider changed order.) Home Meds Home Med List reviewed: Reviewed Relevent Home Meds Not ordered & why?: cyclobenzaprine (PRN) Current Meds Current Medication Order Review: Reviewed Comments: Privigen [place] [facility] [place]/day for five days Patient weight = 68.7 kg = 140g total over 5 days ~ 28g per day. Doses slightly different due to what was in stock - MD aware and okay with dosing 06/03 - 30g 06/04 - 40g 06/05 - 20g 06/06 - 25g 06/07 - 25g Pharmacy Antibiotic Review Relevant Labs: WBC 6.32 10^3/uL (4.4-10.8) 06/05/24 05:20 Temperature 36.8 C Microbiology 06/03/24 10:40 Urine Culture - Preliminary Urine - Subrapubic Enterococcus Species Gram Negative Michael Gram Positive Huma,Mixed 06/02/24 18:50 Blood Culture - Preliminary Blood NO GROWTH 48 HOURS 06/02/24 18:53 Blood Culture - Preliminary Blood NO GROWTH 48 HOURS Pharmacy Antibiotic Activity: C/S review and Renal function adjustment (ertapenem 500mg daily to 1g daily) Comments: Patient continues on ertapenem 1g q24h, day 2, for pneumonia/UTI. WBC now WNL and patient remains afebrile. Ertapenem dose changed due to improved kidney function. Urine culture sensitivities pending.
[2024-06-05] MEDS: Bisacodyl 10 MG SUPP PR (17:55)
--- NOTE | 2024-06-05 18:32 | PGE_ITS ---
Date of Service Date of service: 06/05/24 Time of Service: 18:32 Assessment and Plan Assessment and plan (1) Acute respiratory failure with hypoxia and hypercarbia: Start date: 06/02/24 Status: Acute Assessment and plan: Patient continues on ertapenem Urine culture mixed bacteria as suprapubic catheter. Patient remains a DNR/DNI. (2) Pneumonia: Start date: 06/02/24 Status: Acute Assessment and plan: Continues on renal dose adjusted ertapenem 500 mg IV every 24 hours Creatinine clearance approximately 30 mL/min Tolerating medication without incident Qualifiers: Pneumonia type: due to unspecified organism Laterality: left Lung location: lower lobe of lung Qualified Code(s): J18.9 - Pneumonia, unspecified organism (3) Myasthenia gravis: Status: Chronic Assessment and plan: Patient appears to be having a myasthenia gravis crisis with her acute respiratory infection but has been on a slowly deteriorating course over the last months. IVIG as per neurology at [facility] [place] for 5 days. Continue outpatient medical therapy same. Supportive care. Avoid medications with potential for exacerbation of her myasthenia gravis Patient is completing her IVIG therapy (4) Hypertension: Status: Chronic Assessment and plan: Continue to monitor Qualifiers: Hypertension type: primary hypertension Qualified Code(s): I10 - Essential (primary) hypertension (5) GERD (gastroesophageal reflux disease): Status: Chronic Assessment and plan: Transition to oral PPI Qualifiers: Esophagitis presence: without esophagitis Qualified Code(s): K21.9 - Gastro-esophageal reflux disease without esophagitis Subjective Subjective Interval history since last seen: Clinical course reviewed including notes, orders, labs, vitals, meds, imaging, and cultures. Care is discussed with primary nurse. Patient continues on ertapenem, tolerating well Afebrile VSS Labs reviewed Urine culture from suprapubic catheter source is growing multiple different organisms including gram-positive greater than 100,000 CFU per mL as well as gram-negative greater than 100,000 CFU per mL. No blood cultures pending. Patient NIF is measured at 15 today. Exam Narrative Exam Narrative: Patient is alert and oriented x 3 and in no acute distress. Patient is evaluated in ICU. Physical exam is unchanged today HEENT: Neck supple, MM pink and moist, conjunctiva non-injected, CHEST: Bilaterally symmetrical with inspiration and expiration. No use of accessory muscles of respiration. No nasal flaring. RESP: Clear to auscultation bilaterally, shallow breath sounds no rales, rhonchi or wheeze, no pleural friction rub, no post-tussive crackles or apical rales. COR: RRR ABDOMEN: Soft, non tender diffusely, normally active bowel sounds diffusely, G/U: deferred Rectal: deferred MUSCULOSKELETAL: Bilaterally symmetrical, no muscle belly tenderness or mass DERMIS: Skin warm and dry, no ulcers or rashes, EXTREMITIES: No cyanosis, clubbing or edema, presented Objective Last Vital Signs Temp 36.7 C 06/05/24 07:00 Pulse 89 06/05/24 14:48 Resp 15 06/05/24 14:48 BP 132/95 H 06/05/24 14:48 Pulse Ox 93 06/05/24 08:04 Laboratory Results - last 24 hr 06/05/24 05:20 WBC 6.32 RBC 3.55 L Hgb 10.4 L Hct 32.4 L MCV 91 MCH 29.3 MCHC 32.1 RDW 13.2 Plt Count 254 MPV 9.1 Immature Gran % 3.8 Neutrophils % 68.8 Lymphocytes % 15.7 Monocytes % 9.0 Eosinophils % 2.1 Basophils % 0.6 Nucleated RBC % 0.0 Absolute Neutrophils 4.35 Absolute Lymphocytes 0.99 L Absolute Monocytes 0.57 Absolute Eosinophils 0.13 Absolute Basophils 0.04 Sodium 136 Potassium 3.6 Chloride 102 Carbon Dioxide 27.5 Anion Gap 6.5 BUN 36 H Creatinine 1.2 H Est GFR (CKD-EPI 2020) 49.00 Glucose 84 Calcium 9.1 Total Bilirubin 0.33 AST 15 ALT 10 L Alkaline Phosphatase 96 Total Protein 8.3 H Albumin 1.8 L Time Spent with Patient Time Spent with Patient: 25-34 minutes Time was spent: preparing to see the patient(eg.review tests), obtaining and/or reviewing separately otained hiistory, ordering medications,tests, procedures, referring, communicating with other health vp care management, indepentently interpreting results, counseling the patient and care coordination
[2024-06-05] MEDS: Zolpidem 5 MG TAB 10 MG PO (19:43)
[2024-06-05] MEDS: Sennosides/Docusate Sodium TAB 1 TAB PO (19:44)
[2024-06-05] MEDS: Lidocaine Patch Removal 1 EACH TP (19:56)
[2024-06-05] MEDS: Melatonin 3 MG TAB 9 MG PO (20:01)
[2024-06-05] MEDS: MORPHine 2 MG/ML SYR IVP (20:13)
[2024-06-06] VITALS (34 sets, daily range): BP systolic 92–147; BP diastolic 59–104; PULSE 63–106; RESP 12–24; TEMP 36.2–37.4; O2SAT 91–99
[2024-06-06] MEDS: Acetaminophen 325 MG TAB PO ×2 (05:51→22:40)
[2024-06-06 06:30] LABS: Abs Immature Grans 0.54 10^3/uL (0.0-0.06); Absolute Basophil Count 0.05 10^3/uL (0.0-0.2); Absolute Eosinophil Count 0.12 10^3/uL (0.0-0.7); Absolute Lymphocyte Count 1.13 10^3/uL (1.2-3.4); Absolute Monocyte Count 0.69 10^3/uL (0.1-0.8); Absolute Neutrophil Count 4.38 10^3/uL (1.2-6.7); Basophils % 0.7 %; Eosinophils % 1.7 %; HCT 34.9 % (36.0-46.0); HGB 11.4 g/dL (11.2-15.7); Immature Grans % 7.8 %; Lymphocytes % 16.4 %; MCH 29.6 pg (27.0-33.0); MCHC 32.7 % (32.0-36.0); MCV 91 fL (80-95); MPV 9.3 fL (8.0-11.0); Neutrophils % 63.4 %; Platelet Count 276 10^3/uL (130-400); RBC 3.85 10^6/uL (3.93-5.22); RDW 13.2 % (11.7-14.6); RDW-SD 43.3 fL; WBC 6.91 10^3/uL (4.4-10.8)
[2024-06-06 06:48] LABS: ALT 11 U/L (14-59); AST 17 U/L (15-37); Alkaline Phosphatase 95 U/L (46-116); Anion Gap 5.9 mmol/L (3-11); BUN 29 mg/dL (7-18); Bilirubin, Total 0.31 mg/dL (0.2-1.0); CO2 31.1 mmol/L (21.0-32.0); CREATININE 1.1 mg/dL (0.55-1.02); Calcium 9.6 mg/dL (8.5-10.1); Chloride 102 mmol/L (98-107); Estimated GFR 54.39 (mL/min/1.73m2); Glucose 99 mg/dL (74-106); Potassium 3.3 mmol/L (3.5-5.1); Sodium 139 mmol/L (136-145); Total Protein 8.8 g/dL (6.4-8.2)
[2024-06-06 06:51] LABS: Diff Comment Agrees w/ Instrument; RBC Morphology Normal
[2024-06-06] MEDS: Pantoprazole 40 MG TABCR PO (07:43)
--- NOTE | 2024-06-06 07:54 | PGE_ITS ---
Date of Service Date of service: 06/06/24 Time of Service: 07:54 Assessment and Plan Assessment and plan (1) Acute respiratory failure with hypoxia and hypercarbia: Start date: 06/02/24 Status: Acute Assessment and plan: Patient continues on ertapenem Urine culture mixed bacteria as suprapubic catheter. Patient remains a DNR/DNI. (2) Pneumonia: Start date: 06/02/24 Status: Acute Assessment and plan: Continues on renal dose adjusted ertapenem 500 mg IV every 24 hours, today D#5 Creatinine clearance approximately 30 mL/min Tolerating medication without incident Allergic to PCN and sulfa Qualifiers: Laterality: left Lung location: lower lobe of lung Pneumonia type: due to unspecified organism Qualified Code(s): J18.9 - Pneumonia, unspecified organism (3) Myasthenia gravis: Status: Chronic Assessment and plan: Patient appears to be having a myasthenia gravis crisis with her acute respiratory infection but has been on a slowly deteriorating course over the last months. [place] [facility] [place] Continue outpatient medical therapy same. Supportive care. Avoid medications with potential for exacerbation of her myasthenia gravis Patient is completing her IVIG therapy with last infusion on June 07 patient could be discharged soon after completing the IVIG (4) Hypertension: Status: Chronic Assessment and plan: Continue to monitor Qualifiers: Hypertension type: primary hypertension Qualified Code(s): I10 - Essent ial (primary) hypertension (5) GERD (gastroesophageal reflux disease): Status: Chronic Assessment and plan: on oral PPI Qualifiers: Esophagitis presence: without esophagitis Qualified Code(s): K21.9 - Gastro-esophageal reflux disease without esophagitis Subjective Subjective Interval history since last seen: Clinical course reviewed including notes, orders, labs, vitals, meds, imaging, and cultures. Care is discussed with primary nurse. Patient continues on ertapenem, tolerating well D#5 IV antibiotics. Afebrile VSS Labs reviewed Urine culture from suprapubic catheter source is growing multiple different organisms including enterococcus greater than 100,000 CFU per mL as well as gram-negative greater than 100,000 CFU per mL. No blood cultures pending. Patient NIF is measured at 15 today. Exam Narrative Exam Narrative: Patient is alert and oriented x 3 and in no acute distress. Patient is evaluated in ICU. Physical exam is unchanged today HEENT: Neck supple, MM pink and moist, conjunctiva non-injected, CHEST: Bilaterally symmetrical with inspiration and expiration. No use of accessory muscles of respiration. No nasal flaring. RESP: Clear to auscultation bilaterally, shallow breath sounds no rales, rhonchi or wheeze, no pleural friction rub, no post-tussive crackles or apical rales. COR: RRR ABDOMEN: Soft, non tender diffusely, normally active bowel sounds diffusely, G/U: deferred Rectal: deferred MUSCULOSKELETAL: Bilaterally symmetrical, no muscle belly tenderness or mass DERMIS: Skin warm and dry, no ulcers or rashes, EXTREMITIES: No cyanosis, clubbing or edema, presented Objective Last Vital Signs Temp 36.5 C 06/06/24 01:08 Pulse 84 06/06/24 04:02 Resp 17 06/06/24 06:00 BP 130/66 06/06/24 04:02 Pulse Ox 93 06/06/24 06:00 Laboratory Results - last 24 hr 06/06/24 05:44 WBC 6.91 RBC 3.85 L Hgb 11.4 Hct 34.9 L MCV 91 MCH 29.6 MCHC 32.7 RDW 13.2 Plt Count 276 MPV 9.3 Immature Gran % 7.8 Neutrophils % 63.4 Lymphocytes % 16.4 Monocytes % 10.0 Eosinophils % 1.7 Basophils % 0.7 Nucleated RBC % 0.0 Absolute Neutrophils 4.38 Absolute Lymphocytes 1.13 L Absolute Monocytes 0.69 Absolute Eosinophils 0.12 Absolute Basophils 0.05 RBC Morphology Normal Sodium 139 Potassium 3.3 L Chloride 102 Carbon Dioxide 31.1 Anion Gap 5.9 BUN 29 H Creatinine 1.1 H Est GFR (CKD-EPI 2020) 54.39 Glucose 99 Calcium 9.6 Total Bilirubin 0.31 AST 17 ALT 11 L Alkaline Phosphatase 95 Total Protein 8.8 H Albumin 2.0 L Time Spent with Patient Time Spent with Patient: 35-49 minutes Time was spent: preparing to see the patient(eg.review tests), obtaining and/or reviewing separately otained hiistory, ordering medications,tests, procedures, referring, communicating with other health customer care agent, indepentently interpreting results, counseling the patient and care coordination
[2024-06-06] MEDS: Enoxaparin 40 MG/0.4 ML SYR SC (08:10)
[2024-06-06] MEDS: Lisinopril 10 MG TAB PO (08:11)
[2024-06-06] MEDS: Mirabegron 50 MG TABCR PO (08:11)
[2024-06-06] MEDS: Cholecalciferol (Vitamin D3) 1,000 UNIT TAB 2000 UNITS PO (08:11)
[2024-06-06] MEDS: Metoprolol 12.5 MG TAB PO ×2 (08:11→20:10)
[2024-06-06] MEDS: Gabapentin 300 MG CAP PO ×2 (08:11→20:10)
[2024-06-06] MEDS: amLODIPine 2.5 MG TAB PO (08:11)
[2024-06-06] MEDS: Vitamins B Comp w/C TAB 1 TAB PO (08:11)
[2024-06-06] MEDS: Furosemide 20 MG TAB PO (08:12)
[2024-06-06] MEDS: Normal Saline Flush 10 ML SYR IVP ×2 (08:18→20:11)
[2024-06-06] MEDS: Lidocaine 5% Patch 1 PATCH TD (08:18)
--- NOTE | 2024-06-06 08:50 | PDOC.CMPRO ---
Date of service: 06/06/24 Time of Service: 08:50 Care Management Progress Note Progress Note Text Progress Note Text: Missy was sitting up in bed when CM met with her. She appeared to be in good spirits and engaged easily with CM. Missy informed CM that she is feeling much better. She is still requiring nasal O2 at 1L/min however she is afebrile and her vital signs are stable. Missy is to receive IVIG tomorrow for her myasthenis gravis. If she continues to do well, it is likely she will be able to return to [facility] after the infusion. Discharge Potential Discharge Needs: Other (return to [facility]) Anticipated Barriers to Discharge: None Identified Patient/Family Education Needs: Review discharge instructions, discuss Ask Me Three Transportation: EMS Plan: Anticipate Missy will return to [facility] when medically stable. She will follow up with the facility providers and plan of care and transport via EMS coordinated by CM. CM will follow and continue to assess for discharge needs. SDOH(Care Management) Screening Will the Patient Participate in the Screening?: Declined to provide Do you worry about having a steady place to live?: no In the past 12 months, have you had to go without electric, gas, oil or water in your home?: no Have you or anyone in your house had to go without enough food to eat?: no Has lack of transportation kept you from medical appointments or from doing things needed for daily living?: no Has anyone in your support network made you feel unsafe for any reason?: no
[2024-06-06] MEDS: IMMUNE GLOBULIN 5 GM/50 ML BTL IVPB (10:07)
[2024-06-06] MEDS: IMMUNE GLOBULIN 20 GM/200 ML BTL IVPB (10:09)
[2024-06-06] MEDS: ERTAPENEM 1 GM in Normal Saline 50 ML IVPB (10:40)
--- NOTE | 2024-06-06 15:00 | W.PC.ACHO ---
Registration Status: Primary Language: Preferred Language: ED Information & Data Chief Complaint SOB 06/02/24 18:14 Triage Note SOB today, wet lung sounds, 06/02/24 18:01 lethargic, fever, blood pressure a little soft [facility] pt reports symptoms started yesterday Medical / Surgical History (Last Reviewed 06/03/24 @ 07:44 by Dioni Montgomery) UTI (urinary tract infection) Urine abnormality Palliative care patient Fluid collection at surgical site Oropharyngeal dysphagia Atelectasis External bleeding hemorrhoids Palliative care patient Elevated troponin Tachycardia Neurogenic bowel Fluid collection at surgical site Prerenal azotemia Hypomagnesemia Acute hypokalemia Hypoxia Acute hyponatremia Bursitis of left shoulder Rupture of left proximal biceps tendon Ulnar neuropathy of left upper extremity Carpal tunnel syndrome of left wrist Left shoulder pain Gastric ulcer Protein malnutrition Generalized weakness Urinary retention DNI (do not intubate) DNR (do not resuscitate) POLST (Physician Orders for Life-Sustaining Treatment) Former smoker Spinal stenosis Urinary frequency History of lacunar cerebrovascular accident Ataxia Left hand weakness Hypokalemia Peripheral neuropathy Arachnoid cyst Chronic renal insufficiency Dental caries History of gluten intolerance Bunion of unspecified foot Prediabetes Chronic pain Spasticity Asymptomatic microscopic hematuria Left arm weakness Migraine headache without aura Syrinx of spinal cord Intracranial arachnoid cyst Hyperlipidemia COPD (chronic obstructive pulmonary disease) Alcohol abuse Insomnia Anxiety Depression (Last Reviewed 06/03/24 @ 07:44 by Dioni Montgomery) H/O esophagogastroduodenoscopy (~07/2021) H/O craniotomy S/P cystourethroscopy with dilation of urethral stricture H/O thymectomy S/P appendectomy S/P tonsillectomy Most Recent Vital Signs Temperature 36.5 C 06/06/24 01:08 Temperature Source Temporal Artery Scan 06/06/24 01:08 Pulse 101 H 06/06/24 13:46 Pulse 101 H 06/06/24 13:46 Respiratory Rate 22 06/06/24 13:46 Respiratory Effort Normal 06/03/24 02:03 Respiratory Depth Normal 06/03/24 02:03 Respiratory Pattern Normal 06/03/24 02:03 Blood Pressure 129/97 H 06/06/24 13:46 Blood Pressure Mean 106 06/06/24 13:46 Blood Pressure Position Supine 06/03/24 02:03 Pulse Oximetry 93 06/06/24 13:38 Oxygen Delivery Method Nasal Cannula 06/06/24 08:15 Oxygen Flow Rate 1 06/06/24 08:15 Fraction of Inspired Oxygen (FIO2) 3 06/04/24 02:01 Pain Level 0 06/05/24 03:00 Allergies codeine Allergy (Severe, Verified 06/02/24 18:18) pt unsure of reaction iodine Allergy (Severe, Verified 06/02/24 18:18) pt unsure of reaction Penicillins Allergy (Severe, Verified 06/02/24 18:18) Anaphylaxsis Sulfa (Sulfonamide Antibiotics) Allergy (Severe, Verified 06/02/24 18:18) Swelling/Edema trazodone Adverse Reaction (Intermediate, Verified 06/02/24 18:18) PER PT MAKES HER HEART RACE. Precautions Isolation Standard precaution 06/02/24 18:09 Active Medications Generic Name Dose Route Start Last Admin Trade Name Freq PRN Reason Stop Dose Admin Acetaminophen 0 mg 06/03/24 02:00 06/06/24 05:51 Acetaminophen 325 Mg Tab PO 650 mg Q4H PRN PRN Administration Amlodipine Besylate 2.5 mg 06/03/24 08:30 06/06/24 08:11 Amlodipine 2.5 Mg Tab PO 2.5 mg DAILY PATY Administration Bisacodyl 10 mg 06/03/24 02:00 06/05/24 17:55 Bisacodyl 10 Mg Supp [place] 10 mg DAILY PRN PRN Administration Cholecalciferol 2,000 units 06/03/24 08:30 06/06/24 08:11 Cholecalciferol (Vitamin D3) 1,000 Unit Tab PO 2,000 units DAILY PATY Administration Enoxaparin Sodium 40 mg 06/05/24 08:30 06/06/24 08:10 Enoxaparin 40 Mg/0.4 Ml Syr SC 40 mg DAILY PATY Administration Fentanyl 100 mcg 06/03/24 10:00 06/05/24 09:55 Fentanyl 100 Mcg Patch TD 100 mcg Q48H PATY Administration Fentanyl 25 mcg 06/03/24 10:00 06/05/24 09:48 Fentanyl 25 Mcg Patch TD 25 mcg Q48H PATY Administration Furosemide 20 mg 06/03/24 08:30 06/06/24 08:12 Furosemide 20 Mg Tab PO 20 mg DAILY PATY Administration Gabapentin 300 mg 06/03/24 08:30 06/06/24 08:11 Gabapentin 300 Mg Cap PO 300 mg BID PATY Administration Immune Globulin 20 gm in 200 mls @ 21.21 mls/hr 06/06/24 08:30 06/06/24 10:09 Privigen 10% IVPB 06/07/24 17:56 3.16 mg/kg/min DAILY PATY 134 mls/hr Administration Protocol 0.5 MG/KG/MIN Immune Globulin 5 gm in 50 mls @ 21.21 mls/hr 06/06/24 08:30 06/06/24 10:07 Privigen 10% IVPB 06/07/24 10:52 0.5 mg/kg/min DAILY PATY 21.21 mls/hr Administration Protocol 0.5 MG/KG/MIN Ertapenem/Sodium Chloride 1 gm 50 mls @ 100 mls/hr 06/06/24 10:00 06/06/24 11:15 / Sodium Chloride IVPB Infused Q24H PATY Infusion Lidocaine 1 patch 06/03/24 08:30 06/06/24 08:18 Lidocaine 5% Patch TD 1 patch DAILY PATY Administration Lisinopril 10 mg 06/03/24 08:30 06/06/24 08:11 Lisinopril 10 Mg Tab PO 10 mg DAILY PATY Administration Melatonin 9 mg 06/03/24 20:30 06/05/24 20:01 Melatonin 3 Mg Tab PO 9 mg HS PRN PRN Administration Metoprolol Tartrate 12.5 mg 06/03/24 03:00 06/06/24 08:11 Metoprolol 12.5 Mg Tab PO 12.5 mg BID PATY Administration Mirabegron 50 mg 06/04/24 08:30 06/06/24 08:11 Mirabegron 50 Mg Tabcr PO 50 mg DAILY PATY Administration Miscellaneous 1 each 06/03/24 20:30 06/05/24 19:56 Lidocaine Patch Removal TP 1 each Q24H PATY Administration Morphine Sulfate 2 mg 06/03/24 01:29 06/05/24 20:13 Morphine 2 Mg/Ml Syr IVP 2 mg Q2H PRN PRN Administration Pantoprazole Sodium 40 mg 06/06/24 07:30 06/06/24 07:43 Pantoprazole 40 Mg Tabcr PO 40 mg DAILY@0730 PATY Administration Pyridostigmine [place] 180 mg 06/03/24 08:30 06/06/24 08:11 Pyridostigmine 180 Mg Tabcr PO 180 mg DAILY PATY Administration Senna/Docusate Sodium 1 tab 06/03/24 20:00 06/05/24 19:44 Sennosides/Docusate Sodium Tab PO 1 tab HS PATY Administration Sodium Chloride 0 ml 06/03/24 02:00 06/05/24 20:13 Normal Saline Flush 10 Ml Syr IVP 10 ml PRN PRN Administration Sodium Chloride 0 ml 06/03/24 08:30 06/06/24 08:18 Normal Saline Flush 10 Ml Syr IVP 20 ml BID PATY Administration Vitamin B Complex/Vitamin C 1 tab 06/03/24 08:30 06/06/24 08:11 Vitamins B Comp W/C Tab PO 1 tab DAILY PATY Administration Zolpidem Tartrate 10 mg 06/03/24 20:25 06/05/24 19:43 Zolpidem 5 Mg Tab PO 10 mg HS PATY Administration IV IV Catheter Type [Left Hand] Saline Lock IV Catheter Type [Right Saline Lock Antecubital] IV Catheter Gauge [Left Hand] 20 IV Catheter Gauge [Right 20 Antecubital] Diagnostics 06/06/24 06/03/24 Range/Units 05:44 10:40 WBC 6.91 (4.4-10.8) 10^3/uL RBC 3.85 L (3.93-5.22) 10^6/uL Hgb 11.4 (11.2-15.7) g/dL Hct 34.9 L (36.0-46.0) % MCV 91 (80-95) fL MCH 29.6 (27.0-33.0) pg MCHC 32.7 (32.0-36.0) % RDW 13.2 (11.7-14.6) % Plt Count 276 (130-400) 10^3/uL MPV 9.3 (8.0-11.0) fL Immature Gran % 7.8 % Neutrophils % 63.4 % Lymphocytes % 16.4 % Monocytes % 10.0 % Eosinophils % 1.7 % Basophils % 0.7 % Nucleated RBC % 0.0 (0.0-0.3) % Absolute Neutrophils 4.38 (1.2-6.7) 10^3/uL Absolute Lymphocytes 1.13 L (1.2-3.4) 10^3/uL Absolute Monocytes 0.69 (0.1-0.8) 10^3/uL Absolute Eosinophils 0.12 (0.0-0.7) 10^3/uL Absolute Basophils 0.05 (0.0-0.2) 10^3/uL RBC Morphology Normal Sodium 139 (136-145) mmol/L Potassium 3.3 L (3.5-5.1) mmol/L Chloride 102 (98-107) mmol/L Carbon Dioxide 31.1 (21.0-32.0) mmol/L Anion Gap 5.9 (3-11) mmol/L BUN 29 H (7-18) mg/dL Creatinine 1.1 H (0.55-1.02) mg/dL Est GFR (CKD-EPI 2020) 54.39 (mL/min/1.73m2) Glucose 99 (74-106) mg/dL Calcium 9.6 (8.5-10.1) mg/dL Total Bilirubin 0.31 (0.2-1.0) mg/dL AST 17 (15-37) U/L ALT 11 L (14-59) U/L Alkaline Phosphatase 95 (46-116) U/L Total Protein 8.8 H (6.4-8.2) g/dL Albumin 2.0 L (3.4-5.0) g/dL Urine Color Yellow (Yellow) Urine Clarity Sl Cloudy (Clear) Urine pH 5.5 (5-8) Ur Specific [place] 1.010 (1.005-1.025) Urine Protein Negative (Neg-Trace) mg/dL Urine Ketones Negative (Negative) mg/dL Urine Blood Moderate H (Negative) Urine Nitrite Negative (Negative) Urine Bilirubin Negative (Negative) Urine Urobilinogen 0.2 (Up to 0.2) mg/dL Ur Leukocyte Esterase Small H (Negative) Urine RBC 0-2 (0-2) HPF Urine WBC 5-10 (0-5) HPF Ur Epithelial Cells Few (Negative) HPF Urine Crystals Negative (Negative) HPF Urine Bacteria Few (Negative) HPF Urine Casts Negative (Negative) LPF Urine Mucus Negative (Negative) Ur Culture Indicated? C&S Done As Ordered Urine Glucose Negative (Negative) mg/dL 06/03/24 10:40 Urine Culture - Preliminary Urine - Subrapubic Enterococcus Faecalis Gram Negative Michael Gram Positive Huma,Mixed 06/02/24 18:50 Blood Culture - Preliminary Blood NO GROWTH 72 HOURS 06/02/24 18:53 Blood Culture - Preliminary Blood NO GROWTH 72 HOURS Intake and Output - 24 Hour Total 06/02/24 17:34 thru 06/06/24 14:10 Intake Total 4400.138 Output Total 8400 Balance -3999.862 Weight 67 kg Intake: IV 2420.138 Oral 1980 Output: Urine 8400 Other: Urine Color Yellow Urine Appearance Clear Comment pt has suprapubic cath-well healed Stool Size Small Stool Characteristics Soft Formed [place] Risk Assessment History of Falls Admit Due to Fall 06/03/24 02:03 Contributing Factors Impairments 06/03/24 02:03 Ambulatory Aids Uses ambulatory device + 06/03/24 02:03 Tubes/Lines With any additional score 06/03/24 02:03 Gait Evaluation W/any additional score 06/03/24 02:03 Cognition No cognitive impairment 06/03/24 02:03 Fall Total Score 98 06/03/24 02:03 Level of Risk Maximum Risk 06/03/24 02:03 Problems (Last Reviewed 06/03/24 @ 07:44 by Dioni Montgomery) Acute respiratory failure with hypoxia and hypercarbia (Acute) Myasthenia gravis (Chronic) Pneumonia (Acute) Hypertension (Chronic) GERD (gastroesophageal reflux disease) (Chronic) Notes 06/04/24 06:30 (created 06/04/24 06:43) Nursing Notes by Mele Holcomb Nursing Note: Pt sitting up in bed, not removing hospital equipment, pt awake, pleasantly confused, denies pain or sob, on 2lnc, o2 sat=93%, bed in lowest position, call light within reach, will monitor. Initialized on 06/04/24 06:43 - END OF NOTE 06/02/24 23:28 Respiratory by Kraig James 2022: Pt. was able to performed NIP/MIP up to 30-40. Initialized on 06/02/24 23:28 - END OF NOTE 06/02/24 20:36 Nursing Notes by Sadie Staples Nursing Note:provider updated about increase crackles. stopped bolus. Initialized on 06/02/24 20:36 - END OF NOTE 06/02/24 19:23 Nursing Notes by Sadie Staples Nursing Note: two fentanyl patches removed from right shoulder they were placed on 06/01 Initialized on 06/02/24 19:23 - END OF NOTE v v v v v v v v v Sending and/or Receiving Nurses: Please use comment section below to note any information pertinent to the patient hand-off not included above. Information / Comments: Report received from Carrie. All questions answered. Patient transferred without incident. Report received from: Carrie Portillo RN
[2024-06-06] MEDS: Zolpidem 5 MG TAB 10 MG PO (20:09)
[2024-06-06] MEDS: Sennosides/Docusate Sodium TAB 1 TAB PO (20:10)
[2024-06-06] MEDS: Melatonin 3 MG TAB 9 MG PO (20:13)
[2024-06-06] MEDS: MORPHine 2 MG/ML SYR IVP (20:59)
[2024-06-07 00:46] VITALS: BP 119/89; PULSE 91; RESP 16; TEMP 36; O2SAT 92
[2024-06-07 00:47] VITALS: O2SAT 92
[2024-06-07 06:35] LABS: Abs Immature Grans 0.68 10^3/uL (0.0-0.06); Absolute Basophil Count 0.05 10^3/uL (0.0-0.2); Absolute Eosinophil Count 0.13 10^3/uL (0.0-0.7); Absolute Lymphocyte Count 1.23 10^3/uL (1.2-3.4); Absolute Monocyte Count 0.73 10^3/uL (0.1-0.8); Absolute Neutrophil Count 4.05 10^3/uL (1.2-6.7); Basophils % 0.7 %; Eosinophils % 1.9 %; HCT 33.6 % (36.0-46.0); HGB 10.9 g/dL (11.2-15.7); Immature Grans % 9.9 %; Lymphocytes % 17.9 %; MCH 29.6 pg (27.0-33.0); MCHC 32.4 % (32.0-36.0); MCV 91 fL (80-95); MPV 8.8 fL (8.0-11.0); Monocytes % 10.6 %; Platelet Count 311 10^3/uL (130-400); RBC 3.68 10^6/uL (3.93-5.22); RDW 13.2 % (11.7-14.6); RDW-SD 43.7 fL; WBC 6.87 10^3/uL (4.4-10.8)
[2024-06-07 06:57] LABS: ALT 12 U/L (14-59); AST 16 U/L (15-37); Alkaline Phosphatase 89 U/L (46-116); Anion Gap 4.9 mmol/L (3-11); BUN 28 mg/dL (7-18); Bilirubin, Total 0.27 mg/dL (0.2-1.0); CO2 31.1 mmol/L (21.0-32.0); Calcium 9.3 mg/dL (8.5-10.1); Chloride 103 mmol/L (98-107); Estimated GFR 60.98 (mL/min/1.73m2); Glucose 90 mg/dL (74-106); Sodium 139 mmol/L (136-145); Total Protein 8.9 g/dL (6.4-8.2)
[2024-06-07 07:28] VITALS: BP 112/83; PULSE 85; RESP 15; TEMP 36.1; O2SAT 92
[2024-06-07 08:32] VITALS: O2SAT 96
[2024-06-07] MEDS: Enoxaparin 40 MG/0.4 ML SYR SC (08:38)
[2024-06-07] MEDS: Lidocaine 5% Patch 1 PATCH TD (08:38)
[2024-06-07] MEDS: amLODIPine 2.5 MG TAB PO (08:39)
[2024-06-07] MEDS: Pantoprazole 40 MG TABCR PO (08:40)
[2024-06-07] MEDS: Furosemide 20 MG TAB PO (08:40)
[2024-06-07] MEDS: Lisinopril 10 MG TAB PO (08:40)
[2024-06-07] MEDS: Mirabegron 50 MG TABCR PO (08:41)
[2024-06-07] MEDS: Vitamins B Comp w/C TAB 1 TAB PO (08:41)
[2024-06-07] MEDS: Gabapentin 300 MG CAP PO (08:41)
[2024-06-07] MEDS: Metoprolol 12.5 MG TAB PO (08:41)
[2024-06-07] MEDS: Normal Saline Flush 10 ML SYR IVP (08:42)
[2024-06-07] MEDS: Cholecalciferol (Vitamin D3) 1,000 UNIT TAB 2000 UNITS PO (09:17)
[2024-06-07] MEDS: IMMUNE GLOBULIN 5 GM/50 ML BTL IVPB (09:18)
[2024-06-07] MEDS: IMMUNE GLOBULIN 20 GM/200 ML BTL IVPB (10:45)
[2024-06-07] MEDS: fentaNYL 100 MCG PATCH TD (11:06)
[2024-06-07] MEDS: fentaNYL 25 MCG PATCH TD (11:06)
[2024-06-07] MEDS: ERTAPENEM 1 GM in Normal Saline 50 ML IVPB (11:41)
--- NOTE | 2024-06-07 11:43 | PDOC.CMDIS ---
Date of service: 06/07/24 Time of Service: 11:43 LACE Index Scoring Tool Questions: Length of Stay (in days): 4 - 6 Was the patient admitted via the E.D.?: Yes Comorbidities: Cerebrovascular Disease, Chronic Pulmonary Disease, Connective Tissue Disease and Liver or Renal Disease E.D. Visits: 1 Answers: Total Score: 13 Risk of Readmission: High Risk Care Management Discharge Plan Reason for Hospitalization: pneumonia Discharge Plan: Missy will be discharged back to [facility] where she resides. She will follow up with the facility providers and plan of care and transport via EMS coordinate by CM. Patient/Family Education Needs: Limitations and expectations, discuss Ask Me Three Services Needed at Discharge: Retirement Facility SDOH Health Related Social Needs: No Data to Display
--- NOTE | 2024-06-07 11:44 | W.PM.DS.N ---
Date of service: 06/07/24 Time of Service: 12:28 DS: Diagnosis Discharge Diagnosis (1) Acute respiratory failure with hypoxia and hypercarbia: Status: Acute (2) Pneumonia: Status: Acute (3) Myasthenia gravis: Status: Chronic (4) Hypertension: Status: Chronic (5) GERD (gastroesophageal reflux disease): Status: Chronic Discharge Plan Disposition [facility] Dis[facility] Condition: Good Discharge Details Reason For Visit: Acute Respiratory Failure,Left Pneumonia,Myastheni Admit Date/Time: 06/02/24 22:24 Admit Provider: Jose Roberto Haq Attending Provider: Jose Roberto Haq Primary Care Provider: Marni Friedman Hospital Course Hospital Course: Patient initially presented with signs and symptoms of fever and shortness of breath that was ultimately determined to be secondary to a combination of left lower lobe pneumonia resulting in acute hypoxic and hypercarbic respiratory failure initially requiring BiPAP assessment and transition to room air, as well as myasthenia gravis. For her myasthenia patient was started on IVIG as per recommendation of [facility] neurology with her first dose being on 06/07/2024 and will continue for an additional 4 days after discharge. Ultimately was determined that the patient was stable for discharge to the [facility]. Home Meds and New Rx's Prescriptions: New pyridostigmine bromide [Mestinon Timespan] 180 mg Tablet Extended Release 180 mg PO DAILY Qty: 90 0RF moxifloxacin 400 mg tablet 400 mg PO DAILY 5 Days Qty: 5 0RF Continued vitamin B complex Capsule 1 cap PO DAILY fentanyl 100 mcg/hr patch 72 hour 1 patch transdermal Q48H Rx Instructions: total: 125 mcg/hr lidocaine 4 % adhesive patch,medicated 1 patch topical DAILY bisacodyl 10 mg suppository 10 mg [place] DAILY PRN furosemide 20 mg tablet 20 mg PO DAILY Qty: 30 0RF gabapentin 300 mg capsule 600 mg PO BID melatonin 2.5 mg tablet,chewable 10 mg PO HS PRN sennosides-docusate sodium [Lax Stool Softener With Senna] 8.6-50 mg tablet 1 tab-cap PO QHS cholecalciferol (vitamin D3) 50 mcg (2,000 unit) capsule 50 mcg PO DAILY mirabegron [Myrbetriq] 25 mg tablet extended release 24 hr 50 mg PO DAILY amlodipine 2.5 mg tablet 2.5 mg PO DAILY cyclobenzaprine 15 mg capsule,extended release 24hr 15 mg PO QHS polyethylene glycol 3350 17 gram Powder In Packet 17 g PO DAILY PRN acetaminophen 500 mg tablet 1,000 mg PO TID nystatin 100,000 unit/gram Powder 15 g topical BID PRN pyridostigmine bromide [Mestinon Timespan] 180 mg tablet extended release 180 mg PO DAILY fentanyl 25 mcg/hr patch 72 hour 1 patch transdermal Q48H Patient Comments: total 125 mcg/hr lisinopril 10 mg Tablet 10 mg PO DAILY Qty: 0 0RF metoprolol tartrate 25 mg Tablet 12.5 mg PO BID Qty: 0 0RF zolpidem 5 mg Tablet 10 mg PO HS Qty: 0 0RF Discharge Instructions Activity:: Activity as Tolerated Equipment/Supplies:: No Equipment Needed Diet:: As Tolerated Discharge Orders Discharge Orders: Discharge Order (Routine); Ordered 06/07/24 Ordered By: Goyo San DS: Summary Time Spent with Patient providing and/or coordinating discharge services: Greater than 30 minutes Status at Discharge Functional status at discharge: independent ambulation Overall status at discharge: patient is back to baseline Mental Status: mental status grossly normal Speech and Movement: speech and movement normal Mood: congruent mood Affect: normal affect Quality:SDOH Health Related Social Needs: No Data to Display Exam Narrative Exam Narrative: Well-appearing older female laying in bed in no acute distress, ANO x 4, heart regular rhythm, lungs with diffuse coarse breath sounds though good air movement throughout, abdomen soft, nontender, nondistended Psych Mental Status: mental status grossly normal Speech and Movement: speech and movement normal Mood: congruent mood Affect: normal affect DS: Data Vitals/I&O Vitals and I&O: Vital Signs Temperature 97.0 F L 06/07/24 07:28 Temperature Source Skin 06/07/24 07:28 Pulse 85 06/07/24 07:28 Pulse 101 H 06/06/24 13:46 Respiratory Rate 15 06/07/24 07:28 Respiratory Effort Normal 06/03/24 02:03 Respiratory Depth Normal 06/03/24 02:03 Respiratory Pattern Normal 06/03/24 02:03 Blood Pressure 112/83 06/07/24 07:28 Blood Pressure Mean 106 06/06/24 13:46 Blood Pressure Position Supine 06/03/24 02:03 Pulse Oximetry 96 06/07/24 08:32 Oxygen Delivery Method Room Air 06/07/24 08:32 Oxygen Flow Rate 0 06/07/24 08:32 Fraction of Inspired Oxygen (FIO2) 3 06/04/24 02:01 Pain Level 5 06/07/24 07:28 Intake & Output 06/06/24 06/07/24 06/07/24 17:59 05:59 17:59 Intake Total 470 / 470 Output Total 1000 / 1000 Balance -530 / -530 Weight 147 lb 11.355 oz Intake: IV 110 / 110 Oral 360 / 360 Output: Urine 1000 / 1000 Other: Urine Color Yellow Urine Appearance Clear Stool Size Large Stool Characteristics Soft Data Completed and Pending Labs on day of discharge: Labs from last 24 hours 06/07/24 06/03/24 06:05 10:40 WBC 6.87 RBC 3.68 L Hgb 10.9 L Hct 33.6 L MCV 91 MCH 29.6 MCHC 32.4 RDW 13.2 Plt Count 311 MPV 8.8 Immature Gran % 9.9 Neutrophils % 59.0 Lymphocytes % 17.9 Monocytes % 10.6 Eosinophils % 1.9 Basophils % 0.7 Nucleated RBC % 0.0 Absolute Neutrophils 4.05 Absolute Lymphocytes 1.23 Absolute Monocytes 0.73 Absolute Eosinophils 0.13 Absolute Basophils 0.05 Sodium 139 Potassium 3.0 L Chloride 103 Carbon Dioxide 31.1 Anion Gap 4.9 BUN 28 H Creatinine 1.0 Est GFR (CKD-EPI 2020) 60.98 Glucose 90 Calcium 9.3 Total Bilirubin 0.27 AST 16 ALT 12 L Alkaline Phosphatase 89 Total Protein 8.9 H Albumin 2.0 L Urine Color Yellow Urine Clarity Sl Cloudy Urine pH 5.5 Ur Specific [place] 1.010 Urine Protein Negative Urine Ketones Negative Urine Blood Moderate H Urine Nitrite Negative Urine Bilirubin Negative Urine Urobilinogen 0.2 Ur Leukocyte Esterase Small H Urine RBC 0-2 Urine WBC 5-10 Ur Epithelial Cells Few Urine Crystals Negative Urine Bacteria Few Urine Casts Negative Urine Mucus Negative Ur Culture Indicated? C&S Done As Ordered Urine Glucose Negative Preliminary micro results at discharge 06/02/24 18:53 Blood Culture - Preliminary Blood NO GROWTH 96 HOURS 06/02/24 18:50 Blood Culture - Preliminary Blood NO GROWTH 96 HOURS PFSH All Active Problems (Updated 06/07/24 @ 11:44 by Goyo San MD) Acute respiratory failure with hypoxia and hypercarbia (Acute) Myasthenia gravis (Chronic) Pneumonia (Acute) Nail dystrophy (Acute) Ambulatory dysfunction (Acute) Hypertension (Chronic) GERD (gastroesophageal reflux disease) (Chronic) Myasthenia gravis (Chronic) Neuropathic pain of both legs (Chronic) Weakness (Acute) Pain (Acute) Frequent falls (Chronic) Constipation, chronic (Chronic) Neurogenic bladder (Chronic) Closed fracture of left distal femur (Acute 09/25/22) Medical History UTI (urinary tract infection) Urine abnormality Palliative care patient Fluid collection at surgical site Oropharyngeal dysphagia Atelectasis External bleeding hemorrhoids Palliative care patient Elevated troponin Tachycardia Neurogenic bowel Fluid collection at surgical site Prerenal azotemia Hypomagnesemia Acute hypokalemia Hypoxia Acute hyponatremia Bursitis of left shoulder Rupture of left proximal biceps tendon Ulnar neuropathy of left upper extremity Carpal tunnel syndrome of left wrist Left shoulder pain Gastric ulcer Protein malnutrition Generalized weakness Urinary retention DNI (do not intubate) DNR (do not resuscitate) POLST (Physician Orders for Life-Sustaining Treatment) COLST completed 10/30/2020 with MAUREEN Marley, DNR/DNI Former smoker Spinal stenosis Urinary frequency History of lacunar cerebrovascular accident Ataxia Left hand weakness Hypokalemia Peripheral neuropathy Arachnoid cyst Chronic renal insufficiency Dental caries History of gluten intolerance Bunion of unspecified foot Prediabetes Chronic pain Spasticity Asymptomatic microscopic hematuria Left arm weakness Migraine headache without aura Syrinx of spinal cord Starting at C3 and extending to T11 Intracranial arachnoid cyst Hyperlipidemia COPD (chronic obstructive pulmonary disease) Alcohol abuse history of Insomnia previous misuse of Ambien Anxiety Depression Surgical History H/O esophagogastroduodenoscopy (~07/2021) 09/2021 H/O craniotomy ; L cerebellar arachnoid cyst drain with shunt placement S/P cystourethroscopy with dilation of urethral stricture H/O thymectomy S/P appendectomy S/P tonsillectomy Family History Mother , 90 Diabetes Hypertension Stroke Father , 73 Neuropathy Back problem Depression Heart disease Stroke Brother Myasthenia gravis Depression Maternal Grandfather , 80's Diabetes Paternal Grandfather , 50 Heart disease Maternal Grandmother , 80 No problems noted. Paternal Grandmother , 70 No problems noted. Social History Smoking/Tobacco Use Status: Former Tobacco Use tobacco type: cigarettes Quit Date: 08/15/16 Tobacco: How many years used: 35 Smoking risk assessment performed?: Yes Alcohol Intake: former Drug use: Never Substance use type: does not use Household members: other Housing: assisted living facility Number of Children: 0 Pets and animals: No Current gender identity: female What type of physical activity do you participate in: none Seatbelt use: always Do you feel safe at home: Yes (Pt lives alone) Do you feel safe in your relationship?: Yes Time Spent with Patient Time Spent with Patient: <45 minutes Time was spent: preparing to see the patient(eg.review tests), obtaining and/or reviewing separately otained hiistory, ordering medications,tests, procedures, referring, communicating with other health vision care associate, indepentently interpreting results, counseling the patient and care coordination
[2024-06-07] MEDS: Acetaminophen 325 MG TAB PO (12:01)
[2024-06-07] MEDS: POTASSIUM CHLORIDE 10 MEQ/100 ML BAG 100 MEQ IV_INF ×3 (12:25→14:41)
== END 2024-06-07 15:33 | disposition skilled nursing facility (03) | DRG 193 ==
LOC: ER 22:38 → ICU 06-03 01:17 → MS 06-06 13:51
PROVIDERS: Family Medicine; Admitting Provider Internal Medicine; Emergency Provider Emergency Medicine; PCP Legal Medicine; Visit Provider Internal Medicine
DX: J18.9 Pneumonia, unspecified organism (principal); J96.01 Acute respiratory failure with hypoxia; J44.0 Chronic obstructive pulmonary disease with (acute) lower respiratory infection; E46 Unspecified protein-calorie malnutrition; I10 Essential (primary) hypertension; G70.00 Myasthenia gravis without (acute) exacerbation; K21.9 Gastro-esophageal reflux disease without esophagitis; Z66 Do not resuscitate; G62.9 Polyneuropathy, unspecified; R29.6 Repeated falls; K59.09 Other constipation; N31.9 Neuromuscular dysfunction of bladder, unspecified; R13.12 Dysphagia, oropharyngeal phase; K25.9 Gastric ulcer, unspecified as acute or chronic, without hemorrhage or perforation; Z87.891 Personal history of nicotine dependence; M48.00 Spinal stenosis, site unspecified; R53.1 Weakness; R73.03 Prediabetes; E78.5 Hyperlipidemia, unspecified; F10.11 Alcohol abuse, in remission; F41.9 Anxiety disorder, unspecified; F32.A Depression, unspecified; Z93.51 Cutaneous-vesicostomy status
CPT/HCPCS: 00123; 36415; 80053; 82805; 85027; 87040; 87077; 87637; 87641; 92610; 93005; 94640; 96365; 96366; 96367; 99291; J1650; 71045; 81003; 81015; 83605; 83735; 83880; 84439; 84443; 84484; 85025; 85610; 85730; 87086; 87186; 93010; 94660; 94760; 99223; 99232; 99233; 99239; J1335; J1459; J1956; J2060; J2270; J2470; J3480; J3490; J7620

== ENCOUNTER 2024-06-11 21:29 | Outpatient (REF) | payer OTHER, SELFPAY ==
[2024-06-11 19:19] LABS: Absolute Basophil Count 0.04 10^3/uL (0.0-0.2); Absolute Eosinophil Count 0.12 10^3/uL (0.0-0.7); Absolute Lymphocyte Count 0.72 10^3/uL (1.2-3.4); Absolute Monocyte Count 0.57 10^3/uL (0.1-0.8); Absolute Neutrophil Count 6.43 10^3/uL (1.2-6.7); Basophils % 0.5 %; Eosinophils % 1.5 %; HGB 11.4 g/dL (11.2-15.7); Immature Grans % 1.3 %; MCH 29.9 pg (27.0-33.0); MCHC 31.7 % (32.0-36.0); MCV 95 fL (80-95); MPV 9.3 fL (8.0-11.0); Monocytes % 7.1 %; Neutrophils % 80.6 %; Platelet Count 494 10^3/uL (130-400); RBC 3.81 10^6/uL (3.93-5.22); RDW 13.8 % (11.7-14.6); RDW-SD 46.9 fL; WBC 7.98 10^3/uL (4.4-10.8)
[2024-06-11 20:25] LABS: ALT 19 U/L (14-59); AST 18 U/L (15-37); Albumin 2.4 g/dL (3.4-5.0); Alkaline Phosphatase 97 U/L (46-116); Anion Gap 7.3 mmol/L (3-11); BUN 35 mg/dL (7-18); Bilirubin, Total 0.22 mg/dL (0.2-1.0); CO2 27.7 mmol/L (21.0-32.0); CREATININE 1.3 mg/dL (0.55-1.02); Calcium 8.8 mg/dL (8.5-10.1); Chloride 102 mmol/L (98-107); Estimated GFR 44.51 (mL/min/1.73m2); Glucose 107 mg/dL (74-106); Sodium 137 mmol/L (136-145); Total Protein 8.1 g/dL (6.4-8.2)
== END 2024-06-11 21:30 | disposition home or self-care (01) ==
LOC: LBN 21:29
PROVIDERS: PCP Legal Medicine; Visit Provider Nurse Practitioner Gerontology
DX: G70.01 Myasthenia gravis with (acute) exacerbation (principal)
CPT/HCPCS: 80053; 85025

== ENCOUNTER 2024-10-08 19:23 | Outpatient (REF) | payer MEDICARE, MEDICAID, SELFPAY ==
[2024-10-08 19:26] LABS: Abs Immature Grans 0.01 10^3/uL (0.0-0.06); Absolute Basophil Count 0.06 10^3/uL (0.0-0.2); Absolute Eosinophil Count 0.08 10^3/uL (0.0-0.7); Absolute Monocyte Count 0.59 10^3/uL (0.1-0.8); Absolute Neutrophil Count 3.94 10^3/uL (1.2-6.7); Eosinophils % 1.3 %; HCT 42.8 % (36.0-46.0); HGB 13.8 g/dL (11.2-15.7); Immature Grans % 0.2 %; Lymphocytes % 21.7 %; MCH 28.9 pg (27.0-33.0); MCHC 32.2 % (32.0-36.0); MCV 90 fL (80-95); MPV 9.2 fL (8.0-11.0); Monocytes % 9.9 %; Neutrophils % 65.9 %; Platelet Count 269 10^3/uL (130-400); RBC 4.78 10^6/uL (3.93-5.22); RDW 12.9 % (11.7-14.6); RDW-SD 42.2 fL; WBC 5.98 10^3/uL (4.4-10.8)
[2024-10-08 20:25] LABS: ALT 13 U/L (14-59); AST 16 U/L (15-37); Albumin 3.2 g/dL (3.4-5.0); Alkaline Phosphatase 130 U/L (46-116); Anion Gap 8.1 mmol/L (3-11); BUN 11 mg/dL (7-18); CO2 26.9 mmol/L (21.0-32.0); CREATININE 0.8 mg/dL (0.55-1.02); Calcium 9.4 mg/dL (8.5-10.1); Chloride 100 mmol/L (98-107); Estimated GFR 79.71 (mL/min/1.73m2); Glucose 93 mg/dL (74-106); Magnesium 1.9 mg/dL (1.8-2.4); Potassium 4.4 mmol/L (3.5-5.1); Sodium 135 mmol/L (136-145); TSH (W/Ref FT4) 0.79 uIU/mL (0.36-3.74); Total Protein 6.8 g/dL (6.4-8.2)
[2024-10-09 01:09] LABS: NT-proBNP 713 pg/mL (<300)
== END 2024-10-08 19:24 | disposition home or self-care (01) ==
LOC: LBN 19:23
PROVIDERS: PCP Legal Medicine; Visit Provider Nurse Practitioner Gerontology
DX: I11.9 Hypertensive heart disease without heart failure (principal); D51.9 Vitamin B12 deficiency anemia, unspecified; D52.9 Folate deficiency anemia, unspecified
CPT/HCPCS: 80053; 83735; 83880; 84443; 85025

== ENCOUNTER 2024-10-24 22:35 | Outpatient (REF) | payer MEDICARE, MEDICAID, SELFPAY ==
[2024-10-24 20:04] LABS: ALT 21 U/L (14-59); AST 15 U/L (15-37); Albumin 3.2 g/dL (3.4-5.0); Alkaline Phosphatase 113 U/L (46-116); Anion Gap 6.5 mmol/L (3-11); BUN 45 mg/dL (7-18); Bilirubin, Total 0.4 mg/dL (0.2-1.0); CO2 30.5 mmol/L (21.0-32.0); CREATININE 1.8 mg/dL (0.55-1.02); Calcium 9.1 mg/dL (8.5-10.1); Chloride 98 mmol/L (98-107); Estimated GFR 30.12 (mL/min/1.73m2); Glucose 99 mg/dL (74-106); NT-proBNP 1106 pg/mL (<300); Potassium 4.2 mmol/L (3.5-5.1); Sodium 135 mmol/L (136-145); Total Protein 6.7 g/dL (6.4-8.2)
== END 2024-10-24 22:36 | disposition home or self-care (01) ==
LOC: LBN 22:35
PROVIDERS: PCP Legal Medicine; Visit Provider Nurse Practitioner Gerontology
DX: I50.22 Chronic systolic (congestive) heart failure (principal)
CPT/HCPCS: 80053; 83880

== ENCOUNTER 2024-11-12 17:24 | Outpatient (REF) | payer MEDICARE, MEDICAID, SELFPAY ==
[2024-11-12 18:34] LABS: BUN 22 mg/dL (7-18); CREATININE 1.1 mg/dL (0.55-1.02); Calcium 9.6 mg/dL (8.5-10.1); Chloride 101 mmol/L (98-107); Estimated GFR 54.39 (mL/min/1.73m2); Glucose 137 mg/dL (74-106); Potassium 4.1 mmol/L (3.5-5.1); Sodium 139 mmol/L (136-145)
== END 2024-11-12 17:25 | disposition home or self-care (01) ==
LOC: LBN 17:24
PROVIDERS: PCP Legal Medicine; Visit Provider Nurse Practitioner Gerontology
DX: G70.01 Myasthenia gravis with (acute) exacerbation (principal); E87.6 Hypokalemia
CPT/HCPCS: 80048

== ENCOUNTER 2025-04-25 16:33 | Outpatient (REF) | payer MEDICARE, MEDICAID, SELFPAY ==
[2025-04-25 15:30] LABS: Glucose Negative (Negative)
[2025-04-25 15:32] LABS: WBC 0-2 HPF (0-5)
[2025-04-25 15:36] LABS: Abs Immature Grans 0.02 10^3/uL (0.0-0.06); HCT 42.2 % (36.0-46.0); HGB 13.5 g/dL (11.2-15.7); Immature Grans % 0.3 %; MCH 29.9 pg (27.0-33.0); MCHC 32.0 % (32.0-36.0); MCV 94 fL (80-95); MPV 9.8 fL (8.0-11.0); Platelet Count 321 10^3/uL (130-400); RBC 4.51 10^6/uL (3.93-5.22); RDW 13.4 % (11.7-14.6); RDW-SD 45.6 fL; WBC 6.66 10^3/uL (4.4-10.8)
[2025-04-25 16:34] LABS: ALT 22 U/L (14-59); AST 18 U/L (15-37); Albumin 3.4 g/dL (3.4-5.0); Alkaline Phosphatase 115 U/L (46-116); Anion Gap 7.8 mmol/L (3-11); BUN 20 mg/dL (7-18); Bilirubin, Total 0.3 mg/dL (0.2-1.0); CO2 30.2 mmol/L (21.0-32.0); Calcium 9.5 mg/dL (8.5-10.1); Chloride 97 mmol/L (98-107); Estimated GFR 60.61 (mL/min/1.73m2); Glucose 59 mg/dL (74-106); Magnesium 1.9 mg/dL (1.8-2.4); Potassium 4.0 mmol/L (3.5-5.1); Sodium 135 mmol/L (136-145); Total Protein 6.9 g/dL (6.4-8.2)
[2025-04-25 17:36] LABS: TSH (W/Ref FT4) 1.30 uIU/mL (0.36-3.74)
[2025-04-25 18:04] LABS: Hemoglobin A1C 5.4 % (<5.7)
== END 2025-04-25 16:34 | disposition home or self-care (01) ==
LOC: LBN 16:33
PROVIDERS: PCP Legal Medicine; Visit Provider Nurse Practitioner Gerontology
DX: E11.9 Type 2 diabetes mellitus without complications (principal); N39.0 Urinary tract infection, site not specified
CPT/HCPCS: 80053; 81003; 81015; 83036; 83735; 84443; 85025; 87086